=== PATIENT | male | born 1990 | race Caucasian/White ===

== ENCOUNTER 2018-05-16 07:23 | Inpatient (IN) | END 2018-05-27 12:10 | disposition left against medical advice (07) | DRG 306 ==

== ENCOUNTER 2018-05-29 17:39 | Inpatient (IN) | END 2018-06-01 17:30 | disposition left against medical advice (07) | DRG 288 ==

== ENCOUNTER 2018-12-31 15:19 | Inpatient (IN) | payer OTHER ==
[~2018-12-31] VITALS: Ht 172.7 cm; Wt 81.8 kg
[~2018-12-31 15:19] MED LIST: ASPI-817 PO
--- NOTE | 2018-12-31 15:40 | ERD ---
ER Documentation Chief Complaint Chief Complaint coughing blood x 1 1/2 week; CP, meth use, pacemaker HPI The patient is a 28-year-old male, presenting to the ER because he had intermittent spike of blood with coughing and chest discomfort for about a week and a half, denies fever, chills, neck pain, complains of chest pain with co ughing, denies dyspnea, abdominal pain, vomiting, dysuria. He smokes and drinks and does illicit drug, homeless Past medical history: History of endocarditis and pulmonary embolism on May 29, 2018 when he was admitted but signed AMA, anemia, medical noncompliance Past surgical history: Pacemaker about a year ago, tricuspid valve repair ROS All systems reviewed and are negative except as per history of present illness. Medications Home Meds Reported Medications Aspirin* (Aspirin* EC) 81 Mg Tablet.dr, 81 MG PO DAILY, TAB TAKE 2 OR 3 TIMES A DAY 04/27/18 Allergies Allergies: Coded Allergies: No Known Allergy (Unverified , 05/18/18) PMhx/Soc History of Surgery: Yes (VALVE PLACEMENT AND REPAIR) Anesthesia Reaction: No Hx Neurological Disorder: No Hx Respiratory Disorders: No Hx Cardiac Disorders: Yes Hx Psychiatric Problems: No Hx Miscellaneous Medical Probl: No (DRUG ABUSE) Hx Alcohol Use: Yes Hx Substance Use: Yes Hx Tobacco Use: Yes Physical Exam Vitals Vital Signs Date Temp Pulse Resp B/P (MAP) Pulse Ox O2 O2 Flow FiO2 Time Delivery Rate 12/31/18 113 33 122/84 100 Room Air 17:45 (97) 12/31/18 117 30 117/76 100 Room Air 16:52 (90) 12/31/18 98.9 122 30 109/68 100 15:23 (82) Physical Exam Const: No acute distress. Head: Atraumatic. Eyes: Normal Conjunctiva. ENT: Normal External Ears, Nose and Mouth. Neck: Full range of motion. No meningismus. Resp: Tachypneic, left-sided crackle Cardio: Regular tachycardic Abd: Soft, non distended, normal bowel sounds, non tender. Skin: No petechiae or rashes. Back: No midline or flank tenderness. Ext: No cyanosis, or edema. Neur: Awake and alert. No focal deficit Psych: Normal Mood and Affect. Result Diagram: 12/31/18 1625 12/31/18 1625 Results 24 hrs Laboratory Tests Test 12/31/18 16:25 12/31/18 16:26 12/31/18 16:55 White Blood Count 22.3 10^3/ul Red Blood Count 4.08 10^6/ul Hemoglobin 11.0 g/dl Hematocrit 33.0 % Mean Corpuscular Volume 80.9 fl Mean Corpuscular Hemoglobin 27.0 pg Mean Corpuscular 33.3 g/dl Hemoglobin Concent Red Cell Distribution Width 15.0 % Platelet Count 188 10^3/UL Mean Platelet Volume 9.1 fl Immature Granulocytes % 0.700 % Neutrophils % 88.5 % Lymphocytes % 6.7 % Monocytes % 3.7 % Eosinophils % 0.0 % Basophils % 0.4 % Nucleated Red Blood Cells % 0.0 /100WBC Immature Granulocytes # 0.150 10^3/ul Neutrophils # 19.7 10^3/ul Lymphocytes # 1.5 10^3/ul Monocytes # 0.8 10^3/ul Eosinophils # 0.0 10^3/ul Basophils # 0.1 10^3/ul Nucleated Red Blood Cells # 0.0 10^3/ul Prothrombin Time 16.4 Sec Prothrombin Time Ratio 1.3 INR International 1.31 Normalized Ratio Activated Partial Thromboplast 43.4 Sec Time Sodium Level 132 mmol/L Potassium Level 3.9 mmol/L Chloride Level 100 mmol/L Carbon Dioxide Level 21 mmol/L Anion Gap 11 Blood Urea Nitrogen 12 mg/dl Creatinine 1.11 mg/dl Est Glomerular Filtrat > 60 mL/min Rate mL/min Glucose Level 106 mg/dl Calcium Level 8.7 mg/dl Total Bilirubin 0.8 mg/dl Direct Bilirubin 0.00 mg/dl Indirect Bilirubin 0.8 mg/dl Aspartate Amino 30 IU/L Transf (AST/SGOT) Alanine 7 IU/L Aminotransferase (ALT/SGPT) Alkaline Phosphatase 225 IU/L Troponin I 0.024 ng/ml Total Protein 10.0 g/dl Albumin 3.7 g/dl Globulin 6.30 g/dl Albumin/Globulin Ratio 0.58 Ethyl Alcohol Level < 10.0 mg/dl POC Venous Lactate 1.8 mmol/L Urine Color LEA Urine Clarity CLEAR Urine pH 6.0 Urine Specific [place] 1.011 Urine Ketones NEGATIVE mg/dL Urine Nitrite NEGATIVE mg/dL Urine Bilirubin NEGATIVE mg/dL Urine Urobilinogen 2+ mg/dL Urine Leukocyte Esterase NEGATIVE Fabien/ul Urine Microscopic RBC 27 /HPF Urine Microscopic WBC 9 /HPF Urine Bacteria FEW /HPF Urine Hyaline Casts FEW /HPF Urine Hemoglobin 3+ mg/dL Urine Glucose NEGATIVE mg/dL Urine Total Protein 2+ mg/dl Urine Opiates Screen Negative Urine Barbiturates Negative Urine Amphetamines Screen POSITIVE Urine Benzodiazepines Screen Negative Urine Cocaine Screen Negative Urine Cannabinoids Positive Current Medications Medications Dose Sig/Beverly Start Time Status Last (Trade) Ordered Route PRN Stop Time Admin Dose Reason Admin Sodium 2,450 ml BOLUS OVER 2 12/31/18 DC Chloride HOURS STAT 15:44 (NS) IV* 12/31/18 15:46 Sodium 2,450 ml @ BOLUS X1 12/31/18 DC 12/31/18 Chloride 1,225 mls/hr ONCE IV 17:00 17:41 12/31/18 18:59 Vancomycin 250 ml @ ONCE ONCE 12/31/18 DC 12/31/18 HCl 125 mls/hr IVPB 17:00 17:41 12/31/18 18:59 Piperacillin 100 ml @ ONCE ONCE 12/31/18 DC 12/31/18 Sod/ 200 mls/hr IVPB 17:00 16:54 Tazobactam 12/31/18 17:29 Sod Procedures/[place] [id number] Radiology Main Line: [phone] DIAGNOSTIC IMAGING REPORT Patient: COLLETTE BOWMAN : 1990 Age: 28 Sex: M MR #: [id number] DOS: 12/31/18 1544 Ordering MD: ROBBIN SILVERMAN MD Location: E/R Room/Bed: PROCEDURE: XR Chest. CLINICAL INDICATION: chest pain TECHNIQUE: Single frontal view of the chest was obtained COMPARISON: CHEST 05/29/2018 FINDINGS: The heart and mediastinum are within normal limits. There is a left-sided pacemaker in place. The patient is status post sternotomy and heart valve replacement. There is a left lower lobe infiltrate. There is mild right mid lung atelectasis. There is no pleural effusion or pneumothorax. RPTAT: AA IMPRESSION: Focal left lower lobe infiltrate. Mild right mid lung atelectasis. .Jewel Celeste MD, Date Time Electronically viewed and signed by .Jewel Celeste MD, MD on 12/31/2018 16:26 .S/ CC: ROBBIN SILVERMAN MD [id number] EKG: Read by emergency physician Rate/Rhythm: Sinus tachycardia 124 beats/min QRS, ST, T-waves: No ST elevation, no T inversion, RWA Impression: Abnormal EKG MEDICAL MAKING DECISION: The patient is a 28-year-old male, presenting with acute pneumonia, amphetamine abuse, anemia, abnormal LFT. He was treated with normosaline 30 mm/kg for clinical dehydration, vancomycin IV and Zosyn IV for pneumonia with good response. The differential diagnoses considered include but are not limited to septic emboli, empyema, PE, UTI, pyelonephritis Departure Diagnosis: Primary Impression: PNA (pneumonia) Additional Impressions: Anemia Amphetamine abuse Abnormal LFTs Condition: Stable Comments I discussed the findings with the patient. I discussed the patient with the hospitalist Dr Welch at 6:15 pm . who was made aware of the lab, the treatment, the patient condition. The patient is admitted to [facility] Disclaimer: Inadvertent spelling and grammatical errors are likely due to EHR/dictation software use and do not reflect on the overall quality of patient care. Also, please note that the electronic time recorded on this note does not necessarily reflect the actual time of the patient encounter. ROBBIN SILVERMAN MD Dec 31, 2018 15:40
[2018-12-31] MEDS ORDERED: SODIUM CHLORIDE 0.9% 1L BAG IV* STA (15:44)
[2018-12-31] MEDS ORDERED: SOD CHLORIDE 0.9% 2,450 ML IV ONE (17:00)
[2018-12-31] MEDS ORDERED: PIPER-TAZO 3.375 GM IV (PMX) 100 ML IVPB ONE (17:00)
[2018-12-31] MEDS ORDERED: VANCOMYCIN 1 GM (PMX) 250 ML IVPB ONE (17:00)
[2018-12-31] MEDS ORDERED: NITROGLYCERIN (SL) 0.4 MG TAB SL PRN (18:30)
[2018-12-31] MEDS ORDERED: LORAZEPAM 2 MG INJ IV PRN (18:30)
[2018-12-31] MEDS ORDERED: NACL 0.9% 3 ML SYG IV SCH (18:30)
[2018-12-31] MEDS ORDERED: VANCOMYCIN IV PER PHARMACY XX SCH (18:30)
[2018-12-31] MEDS ORDERED: hydrALAzine 20 MG INJ IV PRN (18:30)
--- NOTE | 2018-12-31 19:56 | HP ---
DATE OF ADMISSION: 12/31/2018 IDENTIFICATION: This is a 28-year-old male. CHIEF COMPLAINT: Productive cough, possible hemoptysis x1 week. 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 He stat es he has been coughing up productive sputum and having some hemoptysis for the last 7 to 10 days. D enied any lower GI bleeding. No significant fevers or chills. No diarrhea or constipation. No sign ificant nausea or vomiting. When the patient came in today, he had some abnormal labs including whit e blood cell count of 22.3. He is also found to have tachycardia, heart rate in the 115 to 120 range and his chest x-ray did show signs of left lower lobe infiltrate and right mid lung atelectasis and patient was given antibiotics in the ER, broad spectrum. The patient was last here at our hospital i n 05/2018. At that time, he was treated for endocarditis, although he did leave against medical advi ce during the hospital stay. PAST MEDICAL HISTORY: As stated above. ALLERGIES: NO KNOWN DRUG ALLERGIES. HOME MEDICATIONS: Aspirin 81 mg daily. PAST SURGICAL HISTORY: Again, he has had looked like that either tricuspid valve replacement or repa ir in the past. SOCIAL HISTORY: Positive alcohol use. Positive for substance abuse including methamphetamine and we eds and the patient is a smoker. FAMILY HISTORY: Unknown. PHYSICAL EXAMINATION: VITAL SIGNS: Today, T-max 98.9, pulse 122, respirations 30, blood pressure 109/68, satting 100%. GENERAL: The patient is lying in bed. Significant other is at the bedside. The patient is in mild distress. HEENT: Pupils are equal, round, react to light. Extraocular muscles are intact. NECK: Supple. No thyromegaly. LUNGS: Distant breath sounds bilaterally. CARDIOVASCULAR: S1, S2 heard. No rubs or gallops. ABDOMEN: Soft, nontender, nondistended. Normal bowel sounds. No rebound or guarding. MUSCULOSKELETAL: No lower extremity edema bilaterally. NEUROLOGIC: No focal deficits. LABORATORIES: Again, we mentioned, his WBC 22.3, hemoglobin 11, hematocrit 33, platelets 188. Compr ehensive metabolic panel is essentially normal. Troponin is negative x1. Lactic acid is normal. Co ags show an INR of 1.42. UA shows negative nitrites, few bacteria, negative leukocyte esterase. DIAGNOSTIC DATA: We mentioned the chest x-ray findings. ASSESSMENT AND PLAN: A 28-year-old male coming in with productive cough, possible hemoptysis for the last 7 to 10 days with signs of leukocytosis and pneumonia with a prior history of IV drug abuse, en docarditis, pacemaker and pulmonary embolism and tricuspid valve repair. 1. Cough and possible hemoptysis. Again symptoms are likely secondary to the pneumonia. Admit the patient and put on broad spectrum antibiotics. Check TSH, A1c, lipid panel. Consider to put him on low-dose IV fluids, Tylenol p.r.n. pain and fevers. Follow up final culture results. 2. 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 U-tox is positive this time. He w as counseled on cessation. Monitor for signs of withdrawal. 3. History of endocarditis. Continue to monitor for now. Follow up final blood culture results. T he patient does not have any fevers right now. His blood pressure appears to be stable. 4. History of prior pacemaker. Continue to monitor patient on telemetry for now. 5. History of peptic ulcer disease. We will add H2 sharona. Otherwise, no present issues. 6. History of tricuspid valve repair. Again, consider repeating echocardiogram. Continue to monito r patient on telemetry for now. Dictated By: ROWAN REARDON/[facility] Conf#: [id number] DID#: [id number] CC: ROBBIN SILVERMAN MD;*End*
[2018-12-31 20:00] VITALS: PULSE 112
[2018-12-31 20:12] VITALS: PULSE 112
[2018-12-31 20:18] VITALS: Ht 172.7 cm; Wt 81.8 kg
[2018-12-31 20:29] VITALS: BP 117/79; PULSE 81; RESP 20
[2018-12-31] MEDS ORDERED: SOD CHLORIDE 0.45% 1,000 ML IV SCH (20:30)
[2018-12-31] MEDS: HYDROCODONE/APAP (5/325) TAB PO PRN (20:44)
[2018-12-31] MEDS ORDERED: VANCOMYCIN 500 MG (PMX) 100 ML IVPB SCH (21:30)
[2018-12-31] MEDS ORDERED: SOD CHLORIDE 0.9% 250 ML IV ONE (22:00)
[2018-12-31] MEDS: SOD CHLORIDE 0.9% 1,000 ML IV SCH (23:05)
[2018-12-31] MEDS: PIPER-TAZO 3.375 GM IV (PMX) 100 ML IVPB SCH (23:55)
[2019-01-01] VITALS (10 sets, daily range): BP systolic 111–125; BP diastolic 57–83; PULSE 59–124; RESP 18–19
[2019-01-01] MEDS: VANCOMYCIN 1 GM 250 ML IVPB SCH ×3 (03:05→18:42)
[2019-01-01] MEDS: ACETAMINOPHEN 325 MG TAB PO PRN ×3 (03:52→16:52)
[2019-01-01] MEDS: PIPER-TAZO 3.375 GM IV (PMX) 100 ML IVPB SCH ×4 (05:30→23:24)
[2019-01-01] MEDS: HYDROCODONE/APAP (5/325) TAB PO PRN (07:55)
[2019-01-01] MEDS: FAMOTIDINE 20 MG INJ IV SCH (08:13)
[2019-01-01] MEDS: SOD CHLORIDE 0.9% 1,000 ML IV SCH ×2 (09:00→10:17)
--- NOTE | 2019-01-01 11:27 | PN ---
Date/Time of Note Date/Time of Note DATE: 01/01/19 TIME: 11:26 Assessment/Plan VTE Prophylaxis Risk score (from [facility] [place]0 risk: 1 SCD applied (from [facility] [place]): No SCD contraindicated: other Pharmacological prophylaxis: heparin Lines/Catheters IV Catheter Type (from [facility]): Peripheral IV Urinary Cath still in place: No Assessment/Plan Hospital Course S: Patient having less fevers now. Still having some cough symptoms. O: VS - see below PHYSICAL EXAMINATION: GENERAL: lying in bed, no acute distress HEENT: Pupils are equal, round, react to light. Extraocular muscles are intact. NECK: Supple. No thyromegaly. LUNGS: Distant breath sounds bilaterally. CARDIOVASCULAR: S1, S2 heard. No rubs or gallops. ABDOMEN: Soft, nontender, nondistended. Normal bowel sounds. No rebound or guarding. MUSCULOSKELETAL: No lower extremity edema bilaterally. NEUROLOGIC: No focal deficits. ASSESSMENT AND PLAN: 28-year-old male coming in with productive cough, possible hemoptysis for the last 7 to 10 days with signs of leukocytosis and pneumonia with a prior history of IV drug abuse, endocarditis, pacemaker and pulmonary embolism and tricuspid valve repair. 1. Cough and possible hemoptysis - secondary to the pneumonia. -Continue broad spectrum antibiotics, low-dose IV fluids, Tylenol p.r.n. pain and fevers. - Follow up final culture results. 2. 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 U-tox is positive this time. - counseled on cessation. Monitor for signs of withdrawal. 3. History of endocarditis- The patient does not have any fevers right now. His blood pressure appears to be stable. - Continue to monitor for now. - Follow up final blood culture results. 4. History of prior pacemaker. Continue to monitor patient on telemetry for now. 5. History of peptic ulcer disease - H2 sharona. Otherwise, no present issues. 6. History of tricuspid valve repair. - Again, consider repeating echocardiogram. - Continue to monitor patient on telemetry for now. Result Diagram: 01/01/19 0603 01/01/19 0603 Results 24hrs Laboratory Tests Test 12/31/18 16:25 12/31/18 16:26 12/31/18 16:55 12/31/18 18:46 White Blood Count 22.3 #H Red Blood Count 4.08 L Hemoglobin 11.0 L Hematocrit 33.0 L Mean Corpuscular 80.9 L Volume Mean Corpuscular 27.0 L Hemoglobin Mean Corpuscular 33.3 Hemoglobin Concent Red Cell 15.0 H Distribution Width Platelet Count 188 # Mean Platelet Volume 9.1 Immature 0.700 H Granulocytes % Neutrophils % 88.5 H Lymphocytes % 6.7 L Monocytes % 3.7 Eosinophils % 0.0 Basophils % 0.4 Nucleated Red Blood 0.0 Cells % Immature 0.150 H Granulocytes # Neutrophils # 19.7 H Lymphocytes # 1.5 Monocytes # 0.8 Eosinophils # 0.0 Basophils # 0.1 Nucleated Red Blood 0.0 Cells # Prothrombin Time 16.4 H 17.5 H Prothrombin Time 1.3 1.4 Ratio INR International 1.31 1.42 Normalized Ratio Activated 43.4 H 43.9 H Partial Thromboplast Time Sodium Level 132 L Potassium Level 3.9 Chloride Level 100 Carbon Dioxide Level 21 Anion Gap 11 Blood Urea Nitrogen 12 Creatinine 1.11 Est Glomerular > 60 Filtrat Rate mL/min Glucose Level 106 Calcium Level 8.7 Total Bilirubin 0.8 Direct Bilirubin 0.00 Indirect Bilirubin 0.8 Aspartate Amino 30 Transf (AST/SGOT) Alanine 7 L Aminotransferase (AL T/SGPT) Alkaline Phosphatase 225 H Troponin I 0.024 Total Protein 10.0 H Albumin 3.7 Globulin 6.30 H Albumin/Globulin 0.58 Ratio Ethyl Alcohol Level < 10.0 H POC Venous Lactate 1.8 Urine Color LEA Urine Clarity CLEAR Urine pH 6.0 Urine Specific 1.011 [place] Urine Ketones NEGATIVE Urine Nitrite NEGATIVE Urine Bilirubin NEGATIVE Urine Urobilinogen 2+ H Urine Leukocyte NEGATIVE Esterase Urine Microscopic 27 H RBC Urine Microscopic 9 H WBC Urine Bacteria FEW A Urine Hyaline Casts FEW A Urine Hemoglobin 3+ H Urine Glucose NEGATIVE Urine Total Protein 2+ H Urine Opiates Screen Negative Urine Barbiturates Negative Urine Amphetamines POSITIVE Screen Urine Negative Benzodiazepines Screen Urine Cocaine Screen Negative Urine Cannabinoids Positive Lactic Acid Level 2.3 *H Free Thyroxine 1.17 Test 12/31/18 20:41 01/01/19 00:23 01/01/19 06:03 Lactic Acid Level 3.6 *H 2.3 *H 1.0 White Blood Count 16.6 #H Red Blood Count 3.86 L Hemoglobin 10.3 L Hematocrit 31.7 L Mean Corpuscular 82.1 Volume Mean Corpuscular 26.7 L Hemoglobin Mean Corpuscular 32.5 Hemoglobin Concent Red Cell 15.0 H Distribution Width Platelet Count 182 Mean Platelet Volume 9.8 Immature 0.600 H Granulocytes % Neutrophils % 84.2 H Lymphocytes % 8.4 L Monocytes % 4.2 Eosinophils % 2.2 Basophils % 0.4 Nucleated Red Blood 0.0 Cells % Immature 0.100 H Granulocytes # Neutrophils # 14.0 H Lymphocytes # 1.4 Monocytes # 0.7 Eosinophils # 0.4 Basophils # 0.1 Nucleated Red Blood 0.0 Cells # Sodium Level 135 Potassium Level 3.8 Chloride Level 104 Carbon Dioxide Level 20 L Anion Gap 11 Blood Urea Nitrogen 12 Creatinine 0.99 Est Glomerular > 60 Filtrat Rate mL/min Glucose Level 114 Hemoglobin A1c 5.9 Calcium Level 8.2 L Phosphorus Level 2.9 Magnesium Level 1.7 Triglycerides Level 82 Cholesterol Level 99 L LDL Cholesterol, 67 Calculated HDL Cholesterol 16 L Cholesterol/HDL 6.1 Ratio Thyroid Stimulating 1.070 Hormone (TSH) Exam/Review of Systems Exam Vitals Vital Signs Date Temp Pulse Resp B/P (MAP) Pulse Ox O2 O2 Flow FiO2 Time Delivery Rate 01/01/19 2.0 11:22 01/01/19 98.0 59 18 111/75 97 Room Air 11:12 (87) Intake and Output 12/31/18 12/31/18 01/01/19 1515:00 23:00 07:00 IntakeIntake Total 1000 ml 1750 ml OutputOutput Total 700 ml BalanceBalance 1000 ml 1050 ml Results Results 24hrs Laboratory Tests Test 12/31/18 16:25 12/31/18 16:26 12/31/18 16:55 12/31/18 18:46 White Blood Count 22.3 #H Red Blood Count 4.08 L Hemoglobin 11.0 L Hematocrit 33.0 L Mean Corpuscular 80.9 L Volume Mean Corpuscular 27.0 L Hemoglobin Mean Corpuscular 33.3 Hemoglobin Concent Red Cell 15.0 H Distribution Width Platelet Count 188 # Mean Platelet Volume 9.1 Immature 0.700 H Granulocytes % Neutrophils % 88.5 H Lymphocytes % 6.7 L Monocytes % 3.7 Eosinophils % 0.0 Basophils % 0.4 Nucleated Red Blood 0.0 Cells % Immature 0.150 H Granulocytes # Neutrophils # 19.7 H Lymphocytes # 1.5 Monocytes # 0.8 Eosinophils # 0.0 Basophils # 0.1 Nucleated Red Blood 0.0 Cells # Prothrombin Time 16.4 H 17.5 H Prothrombin Time 1.3 1.4 Ratio INR International 1.31 1.42 Normalized Ratio Activated 43.4 H 43.9 H Partial Thromboplast Time Sodium Level 132 L Potassium Level 3.9 Chloride Level 100 Carbon Dioxide Level 21 Anion Gap 11 Blood Urea Nitrogen 12 Creatinine 1.11 Est Glomerular > 60 Filtrat Rate mL/min Glucose Level 106 Calcium Level 8.7 Total Bilirubin 0.8 Direct Bilirubin 0.00 Indirect Bilirubin 0.8 Aspartate Amino 30 Transf (AST/SGOT) Alanine 7 L Aminotransferase (AL T/SGPT) Alkaline Phosphatase 225 H Troponin I 0.024 Total Protein 10.0 H Albumin 3.7 Globulin 6.30 H Albumin/Globulin 0.58 Ratio Ethyl Alcohol Level < 10.0 H POC Venous Lactate 1.8 Urine Color LEA Urine Clarity CLEAR Urine pH 6.0 Urine Specific 1.011 [place] Urine Ketones NEGATIVE Urine Nitrite NEGATIVE Urine Bilirubin NEGATIVE Urine Urobilinogen 2+ H Urine Leukocyte NEGATIVE Esterase Urine Microscopic 27 H RBC Urine Microscopic 9 H WBC Urine Bacteria FEW A Urine Hyaline Casts FEW A Urine Hemoglobin 3+ H Urine Glucose NEGATIVE Urine Total Protein 2+ H Urine Opiates Screen Negative Urine Barbiturates Negative Urine Amphetamines POSITIVE Screen Urine Negative Benzodiazepines Screen Urine Cocaine Screen Negative Urine Cannabinoids Positive Lactic Acid Level 2.3 *H Free Thyroxine 1.17 Test 12/31/18 20:41 01/01/19 00:23 01/01/19 06:03 Lactic Acid Level 3.6 *H 2.3 *H 1.0 White Blood Count 16.6 #H Red Blood Count 3.86 L Hemoglobin 10.3 L Hematocrit 31.7 L Mean Corpuscular 82.1 Volume Mean Corpuscular 26.7 L Hemoglobin Mean Corpuscular 32.5 Hemoglobin Concent Red Cell 15.0 H Distribution Width Platelet Count 182 Mean Platelet Volume 9.8 Immature 0.600 H Granulocytes % Neutrophils % 84.2 H Lymphocytes % 8.4 L Monocytes % 4.2 Eosinophils % 2.2 Basophils % 0.4 Nucleated Red Blood 0.0 Cells % Immature 0.100 H Granulocytes # Neutrophils # 14.0 H Lymphocytes # 1.4 Monocytes # 0.7 Eosinophils # 0.4 Basophils # 0.1 Nucleated Red Blood 0.0 Cells # Sodium Level 135 Potassium Level 3.8 Chloride Level 104 Carbon Dioxide Level 20 L Anion Gap 11 Blood Urea Nitrogen 12 Creatinine 0.99 Est Glomerular > 60 Filtrat Rate mL/min Glucose Level 114 Hemoglobin A1c 5.9 Calcium Level 8.2 L Phosphorus Level 2.9 Magnesium Level 1.7 Triglycerides Level 82 Cholesterol Level 99 L LDL Cholesterol, 67 Calculated HDL Cholesterol 16 L Cholesterol/HDL 6.1 Ratio Thyroid Stimulating 1.070 Hormone (TSH) Medications Medication Current Medications IV Flush (NS 3 ml) 3 ml PER PROTOCOL IV ; Start 12/31/18 at 18:30 Ondansetron HCl (Zofran Inj) 4 mg Q6H PRN IV NAUSEA/VOMITING; Start 12/31/18 at 18:30 Acetaminophen (Tylenol Tab) 650 mg Q6H PRN PO .PAIN 1-3 OR TEMP Last administered on 01/01/19at 05:30; Admin Dose 650 MG; Start 12/31/18 at 18:30 Acetaminophen/ Hydrocodone Bitart ([place] (5/325)) 1 tab Q6H PRN PO .MOD PAIN 4- 6 Last administered on 01/01/19at 07:55; Admin Dose 1 TAB; Start 12/31/18 at 18:30 Morphine Sulfate (morphine) 2 mg Q4H PRN IV .SEVERE PAIN 7-10; Start 12/31/18 at 18:30 Docusate Sodium (Colace) 100 mg Q12H PRN PO .CONSTIPATION; Start 12/31/18 at 18:30 Magnesium Hydroxide (Milk Of Mag) 30 ml DAILY PRN PO .CONSTIPATION; Start 12/31/18 at 18:30 Lorazepam (Ativan) 0.5 mg Q6H PRN IV ANXIETY; Start 12/31/18 at 18:30 Albuterol/ Ipratropium (Duoneb) 3 ml Q4H RESP THERAPY PRN HHN SHORTNESS OF BREATH; Start 12/31/18 at 18:30 Piperacillin Sod/ Tazobactam Sod 100 ml @ 200 mls/hr Q6 IVPB Last administered on 01/01/19at 05:30; Admin Dose 200 MLS/HR; Start 01/01/19 at 00:00 Vancomycin HCl (Vanco Iv Per Pharmacy) VANCOMYCIN PER PHARMACY NOTE XX ; Start 12/31/18 at 18:30 Hydralazine HCl (Apresoline) 10 mg Q6H PRN IV ELEVATED BLOOD PRESSURE; Start 12/31/18 at 18:30 Nitroglycerin (Nitroglycerin (Sl Tab) 0.4 Mg) 1 tab Q5M PRN SL ANGINA; Start 12/31/18 at 18:30 Famotidine (Pepcid Iv) 20 mg DAILY IV Last administered on 01/01/19at 08:13; Admin Dose 20 MG; Start 01/01/19 at 09:00 Vancomycin HCl 250 ml @ 125 mls/hr Q8H IVPB Last administered on 01/01/19at 10:19; Admin Dose 125 MLS/HR; Start 01/01/19 at 03:00 Sodium Chloride 1,000 ml @ 100 mls/hr Q10H IV Last administered on 01/01/19at 10:17; Admin Dose 100 MLS/HR; Start 12/31/18 at 23:00 ROWAN OVALLE Jan 01, 2019 11:27
[2019-01-01] MEDS: SOD CHLORIDE 0.45% 1,000 ML IV SCH (13:21)
[2019-01-01] MEDS: GUAIFENESIN 20 MG/ML 5ML CUP PO PRN (16:14)
[2019-01-01] MEDS: IBUPROFEN 600 MG TAB PO PRN (19:31)
[2019-01-01] MEDS: HEPARIN 5,000 UNIT/1 ML VIAL SC SCH (21:11)
--- NOTE | 2019-01-01 23:17 | CONS ---
DATE OF ADMISSION: 12/31/2018 DATE OF CONSULTATION: 01/01/2019 REASON FOR CONSULTATION: Antibiotic management. HISTORY OF PRESENT ILLNESS: Chris Neal is a 28-year-old male with numerous problems wh o comes in with coughing up blood for 1-1/2 weeks. The patient has numerous problems. He comes in w ith chest pain. He has a history of methamphetamine use. He has a pacemaker and he also has a histo ry of IV drug abuse. He presents to the Emergency Room with intermittent spiking fevers with coughin g up blood and chest discomfort for about a week and a half. He denies fever, chills or neck pain. He smokes, drinks and does illicit drugs, and is homeless. PAST MEDICAL HISTORY: Positive for endocarditis and pulmonary emboli in 05/2018. He signed out [facility] medical advice at one point in May and is medically noncompliant. He had a pacemaker done about a year ago and tricuspid valve repair. PAST MEDICAL HISTORY: Operations as outlined. FAMILY HISTORY: Noncontributory. SOCIAL HISTORY: He is homeless. He smokes, drinks and abuses drugs. ALLERGIES: NONE TO PENICILLIN, SULFA OR FOODS. MEDICATIONS: Per chart. REVIEW OF SYSTEMS: As per HPI. PHYSICAL EXAMINATION: GENERAL: The patient is a well-developed, well-nourished male with multiple tattoos, who is very unc omfortable lying in bed with fever. VITAL SIGNS: His T-max is 102.6. SKIN: Without generalized rash. As noted, he has multiple tattoos. HEENT: Within normal limits. NECK: Supple. LYMPH NODES: None palpable. CHEST: Decreased breath sounds at the bases. HEART: Tachycardic without obvious murmur or gallop. THORAX: He has a left-sided pacemaker in place status post sternotomy. ABDOMEN: Soft, nontender, without organosplenomegaly or masses. EXTREMITIES: Without cyanosis, clubbing or edema. RECTAL AND GENITAL: Deferred. NEUROLOGIC: No focal neurological abnormality. DIAGNOSTIC DATA: Chest x-ray shows focal left lower lobe infiltrate and mild right middle lobe lung atelectasis. IMPRESSION AND PLAN: The patient was seen by Dr. Ovlale. The patient is with fevers less so than prev iously, cough and possible hemoptysis secondary to pneumonia. The patient has history of IV drug abu se, U-tox positive, history of endocarditis. He has fevers at the present time. His white count is 16.6 for today. I would not be surprised if he has shooting up and will have positive blood cultures . He is on vancomycin and Zosyn. I am going to order some more blood cultures. I will dictate my f indings to the hospitalist. Dictated By: BARB ATWOOD MD, JD/[facility] Conf#: [id number] DID#: [id number] CC: ROWAN OVALLE;*EndCC*
[2019-01-02] VITALS (11 sets, daily range): BP systolic 95–120; BP diastolic 67–76; PULSE 78–121; RESP 18–20
[2019-01-02] MEDS: SOD CHLORIDE 0.45% 1,000 ML IV SCH ×2 (00:21→14:17)
[2019-01-02] MEDS: VANCOMYCIN 1 GM 250 ML IVPB SCH ×2 (03:11→10:45)
[2019-01-02] MEDS: PIPER-TAZO 3.375 GM IV (PMX) 100 ML IVPB SCH ×2 (05:26→12:49)
[2019-01-02] MEDS: FAMOTIDINE 20 MG INJ IV SCH (08:19)
[2019-01-02] MEDS: HEPARIN 5,000 UNIT/1 ML VIAL SC SCH ×2 (08:26→20:51)
--- NOTE | 2019-01-02 12:25 | PN ---
Date/Time of Note Date/Time of Note DATE: 01/02/19 TIME: 12:20 Assessment/Plan VTE Prophylaxis Risk score (from Ns)>0 risk: 4 SCD applied (from Ns): No SCD contraindicated: other Pharmacological prophylaxis: heparin Lines/Catheters IV Catheter Type (from [facility]): Peripheral IV Urinary Cath still in place: No Assessment/Plan Hospital Course S: Patient seen by ID team yesterday. Had more respiratory distress yesterday requiring nonrebreather at that time, back on nasal cannula now, but appears more tachypneic today. O: VS - see below PHYSICAL EXAMINATION: GENERAL: lying in bed, no acute distress HEENT: Pupils are equal, round, react to light. Extraocular muscles are intact. NECK: Supple. No thyromegaly. LUNGS: Distant breath sounds bilaterally. CARDIOVASCULAR: S1, S2 heard. No rubs or gallops. ABDOMEN: Soft, nontender, nondistended. Normal bowel sounds. No rebound or guarding. MUSCULOSKELETAL: No lower extremity edema bilaterally. NEUROLOGIC: No focal deficits. ASSESSMENT AND PLAN: 28-year-old male coming in with productive cough, possible hemoptysis for the last 7 to 10 days with signs of leukocytosis and pneumonia with a prior history of IV drug abuse, endocarditis, pacemaker and pulmonary embolism and tricuspid valve repair. 1. Cough and possible hemoptysis - secondary to the pneumonia. -Continue broad spectrum antibiotics, low-dose IV fluids, Tylenol p.r.n. pain and fevers. - Follow up final culture results, and ID recommendations 2. 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 U-tox is po sitive this time. - counseled on cessation. Monitor for signs of withdrawal. -Ativan PRN 3. Prior history of endocarditis- The patient does not have any fevers right now. His blood pressure appears to be stable. - Continue to monitor for now. - Follow up final blood culture results, 4. History of prior pacemaker. Continue to monitor patient on telemetry for now. 5. History of peptic ulcer disease - H2 sharona. Otherwise, no present issues. 6. History of tricuspid valve repair. -Awaiting results of echocardiogram ordered yesterday -follow-up results of this - Continue to monitor patient on telemetry for now. Result Diagram: 01/02/19 0600 01/02/19 0600 Results 24hrs Laboratory Tests Test 01/01/19 13:07 01/01/19 16:21 01/02/19 06:00 Lactic Acid Level 1.1 Vancomycin Level Trough 16.8 White Blood Count 15.1 H Red Blood Count 3.67 L Hemoglobin 9.7 L Hematocrit 31.2 L Mean Corpuscular Volume 85.0 Mean Corpuscular Hemoglobin 26.4 L Mean Corpuscular Hemoglobin Concent 31.1 L Red Cell Distribution Width 15.1 H Platelet Count 150 Mean Platelet Volume 10.0 Immature Granulocytes % 0.700 H Neutrophils % 78.3 H Lymphocytes % 8.6 L Monocytes % 4.9 Eosinophils % 7.0 Basophils % 0.5 Nucleated Red Blood Cells % 0.0 Immature Granulocytes # 0.110 H Neutrophils # 11.8 H Lymphocytes # 1.3 Monocytes # 0.7 Eosinophils # 1.1 H Basophils # 0.1 Nucleated Red Blood Cells # 0.0 Sodium Level 137 Potassium Level 3.7 Chloride Level 107 Carbon Dioxide Level 21 Anion Gap 9 Blood Urea Nitrogen 17 Creatinine 1.04 Est Glomerular Filtrat Rate mL/min > 60 Glucose Level 114 Calcium Level 8.2 L Exam/Review of Systems Exam Vitals Vital Signs Date Temp Pulse Resp B/P (MAP) Pulse Ox O2 O2 Flow FiO2 Time Delivery Rate 01/02/19 121 12:10 01/02/19 98.6 20 113/67 95 11:32 (82) 01/02/19 Nasal 3.0 07:48 Cannula Intake and Output 01/01/19 01/01/19 01/02/19 1515:00 23:00 07:00 IntakeIntake Total 200 ml 1200 ml 1900 ml OutputOutput Total 400 ml 1280 ml 700 ml BalanceBalance -200 ml -80 ml 1200 ml Results Results 24hrs Laboratory Tests Test 01/01/19 13:07 01/01/19 16:21 01/02/19 06:00 Lactic Acid Level 1.1 Vancomycin Level Trough 16.8 White Blood Count 15.1 H Red Blood Count 3.67 L Hemoglobin 9.7 L Hematocrit 31.2 L Mean Corpuscular Volume 85.0 Mean Corpuscular Hemoglobin 26.4 L Mean Corpuscular Hemoglobin Concent 31.1 L Red Cell Distribution Width 15.1 H Platelet Count 150 Mean Platelet Volume 10.0 Immature Granulocytes % 0.700 H Neutrophils % 78.3 H Lymphocytes % 8.6 L Monocytes % 4.9 Eosinophils % 7.0 Basophils % 0.5 Nucleated Red Blood Cells % 0.0 Immature Granulocytes # 0.110 H Neutrophils # 11.8 H Lymphocytes # 1.3 Monocytes # 0.7 Eosinophils # 1.1 H Basophils # 0.1 Nucleated Red Blood Cells # 0.0 Sodium Level 137 Potassium Level 3.7 Chloride Level 107 Carbon Dioxide Level 21 Anion Gap 9 Blood Urea Nitrogen 17 Creatinine 1.04 Est Glomerular Filtrat Rate mL/min > 60 Glucose Level 114 Calcium Level 8.2 L Medications Medication Current Medications IV Flush (NS 3 ml) 3 ml PER PROTOCOL IV ; Start 12/31/18 at 18:30 Ondansetron HCl (Zofran Inj) 4 mg Q6H PRN IV NAUSEA/VOMITING; Start 12/31/18 at 18:30 Acetaminophen (Tylenol Tab) 650 mg Q6H PRN PO .PAIN 1-3 OR TEMP Last administered on 01/01/19at 16:52; Admin Dose 650 MG; Start 12/31/18 at 18:30 Acetaminophen/ Hydrocodone Bitart ([place] (5/325)) 1 tab Q6H PRN PO .MOD PAIN 4- 6 Last administered on 01/01/19at 07:55; Admin Dose 1 TAB; Start 12/31/18 at 18:30 Morphine Sulfate (morphine) 2 mg Q4H PRN IV .SEVERE PAIN 7-10; Start 12/31/18 at 18:30 Docusate Sodium (Colace) 100 mg Q12H PRN PO .CONSTIPATION; Start 12/31/18 at 18:30 Magnesium Hydroxide (Milk Of Mag) 30 ml DAILY PRN PO .CONSTIPATION; Start 12/31/18 at 18:30 Lorazepam (Ativan) 0.5 mg Q6H PRN IV ANXIETY; Start 12/31/18 at 18:30 Albuterol/ Ipratropium (Duoneb) 3 ml Q4H RESP THERAPY PRN HHN SHORTNESS OF BREATH; Start 12/31/18 at 18:30 Piperacillin Sod/ Tazobactam Sod 100 ml @ 200 mls/hr Q6 IVPB Last administered on 01/02/19at 05:26; Admin Dose 200 MLS/HR; Start 01/01/19 at 00:00 Vancomycin HCl (Vanco Iv Per Pharmacy) VANCOMYCIN PER PHARMACY NOTE XX ; Start 12/31/18 at 18:30 Hydralazine HCl (Apresoline) 10 mg Q6H PRN IV ELEVATED BLOOD PRESSURE; Start 12/31/18 at 18:30 Nitroglycerin (Nitroglycerin (Sl Tab) 0.4 Mg) 1 tab Q5M PRN SL ANGINA; Start 12/31/18 at 18:30 Famotidine (Pepcid Iv) 20 mg DAILY IV Last administered on 01/02/19at 08:19; Admin Dose 20 MG; Start 01/01/19 at 09:00 Vancomycin HCl 250 ml @ 125 mls/hr Q8H IVPB Last administered on 01/02/19at 10:45; Admin Dose 125 MLS/HR; Start 01/01/19 at 03:00 Guaifenesin (Robitussin Liquid Cup) 200 mg Q4H PRN PO COUGH Last administered on 01/01/19at 16:14; Admin Dose 200 MG; Start 01/01/19 at 11:30 Sodium Chloride 1,000 ml @ 75 mls/hr [id number] IV Last administered on 01/01/19at 13:21; Admin Dose 75 MLS/HR; Start 01/01/19 at 11:30 Heparin Sodium (Porcine) (Heparin (5000 Units/1ml)) 5,000 unit BID SC Last administered on 01/02/19at 08:26; Admin Dose 5,000 UNIT; Start 01/01/19 at 21:00 Ibuprofen (Motrin) 600 mg Q6H PRN PO MILD PAIN LEVEL 1-3 Last administered on 01/01/19at 19:31; Admin Dose 600 MG; Start 01/01/19 at 17:30 Phenol (Cepastat Lozenge) 1 lozenge Q1H PRN MT COUGH; Start 01/02/19 at 12:30 ROWAN OVALLE Jan 02, 2019 12:25
--- NOTE | 2019-01-02 16:55 | CONS ---
Assessment/Plan Assessment/Plan Hospital Course (Demo Recall) Patient is awake looks comfortable denies pain no fevers today latest fever was yesterday of 102.2. WBC 15.1 platelets 115 neutrophils 78.3 BUN 17 creatinine 1.04. HIV serology negative. Microbiology: Blood cultures negative. Chest x-ray on admission revealed focal left lower lobe infiltrate. Mild right midlung atelectasis. Antimicrobials: Vancomycin Zosyn. Physical examination: Well-developed middle-aged man who is awake in no distress. Head atraumatic normocephalic sclera nonicteric vehicle mucosa dry neck is supple chest rise symmetrical breath sounds with scattered rhonchi. Heart: S1-S2. Abdomen soft bowel sounds present extremities without cyanosis. Assessment: 1. Sepsis present on admission 2. Community-acquired pneumonia 3. Hemoptysis 4. History of endocarditis 5. IV drug abuse 6. Coronary artery disease with a history of tricuspid valve repair and permanent pacemaker placement Plan: DC vancomycin, start Zithromax, change Zosyn to cefepime, consider CT of the chest and pulmonary evaluation, await for 2D echo report results. Sputum culture and MRSA swab Consultation Date/Type/Reason Admit Date/Time Dec 31, 2018 at 18:14 Initial Consult Date Type of Consult id Date/Time of Note DATE: 01/02/19 TIME: 16:54 Exam/Review of Systems Exam Vitals Vital Signs Date Temp Pulse Resp B/P (MAP) Pulse Ox O2 O2 Flow FiO2 Time Delivery Rate 01/02/19 114 16:09 01/02/19 98.1 20 120/72 99 15:48 (88) 01/02/19 Nasal 3.0 07:48 Cannula Intake and Output 01/01/19 01/01/19 01/02/19 1515:00 23:00 07:00 IntakeIntake Total 200 ml 1200 ml 1900 ml OutputOutput Total 400 ml 1280 ml 700 ml BalanceBalance -200 ml -80 ml 1200 ml Results Result Diagram: 01/02/19 0600 01/02/19 0600 Results 24hrs Laboratory Tests Test 01/02/19 06:00 01/02/19 12:45 White Blood Count 15.1 H Red Blood Count 3.67 L Hemoglobin 9.7 L Hematocrit 31.2 L Mean Corpuscular Volume 85.0 Mean Corpuscular Hemoglobin 26.4 L Mean Corpuscular Hemoglobin Concent 31.1 L Red Cell Distribution Width 15.1 H Platelet Count 150 Mean Platelet Volume 10.0 Immature Granulocytes % 0.700 H Neutrophils % 78.3 H Lymphocytes % 8.6 L Monocytes % 4.9 Eosinophils % 7.0 Basophils % 0.5 Nucleated Red Blood Cells % 0.0 Immature Granulocytes # 0.110 H Neutrophils # 11.8 H Lymphocytes # 1.3 Monocytes # 0.7 Eosinophils # 1.1 H Basophils # 0.1 Nucleated Red Blood Cells # 0.0 Sodium Level 137 Potassium Level 3.7 Chloride Level 107 Carbon Dioxide Level 21 Anion Gap 9 Blood Urea Nitrogen 17 Creatinine 1.04 Est Glomerular Filtrat Rate mL/min > 60 Glucose Level 114 Calcium Level 8.2 L HIV (1&2) Antibody NEGATIVE Blood Gas Specimen Source Blood arterial Arterial Blood Date Drawn 01/02/2019 1:13:26 PM Arterial Blood pH (Temp corrected) 7.472 H Arterial Blood pCO2 (Temp correct) 26.5 L Arterial Blood pO2 (Temp corrected) 85.3 Arterial Blood HCO3 18.9 L Arterial Blood Base Excess -3.5 L Arterial Blood Oxygen Saturation 96.7 Yuri Test ACCEPTAB Arterial Blood Gas Puncture Site Left Radial Arterial Blood Carboxyhemoglobin 0 Arterial Blood Methemoglobin 0.2 Blood Gas A-a O2 Differential 119.1 H Oxyhemoglobin Percent 96.5 Blood Gas Temperature 37.0 Blood Gas Modality NASAL CANNULA FiO2 33.0 Blood Gas Notified Whom TM Blood Gas Notified Time 01/02/2019 1:21:00 PM Medications Medication Current Medications IV Flush (NS 3 ml) 3 ml PER PROTOCOL IV ; Start 12/31/18 at 18:30 Ondansetron HCl (Zofran Inj) 4 mg Q6H PRN IV NAUSEA/VOMITING; Start 12/31/18 at 18:30 Acetaminophen (Tylenol Tab) 650 mg Q6H PRN PO .PAIN 1-3 OR TEMP Last administered on 01/01/19at 16:52; Admin Dose 650 MG; Start 12/31/18 at 18:30 Acetaminophen/ Hydrocodone Bitart ([place] (5/325)) 1 tab Q6H PRN PO .MOD PAIN 4- 6 Last administered on 01/01/19at 07:55; Admin Dose 1 TAB; Start 12/31/18 at 18:30 Morphine Sulfate (morphine) 2 mg Q4H PRN IV .SEVERE PAIN 7-10; Start 12/31/18 at 18:30 Docusate Sodium (Colace) 100 mg Q12H PRN PO .CONSTIPATION; Start 12/31/18 at 18:30 Magnesium Hydroxide (Milk Of Mag) 30 ml DAILY PRN PO .CONSTIPATION; Start at 18:30 Lorazepam (Ativan) 0.5 mg Q6H PRN IV ANXIETY Last administered on 01/02/19 12:32; Admin Dose 0.5 MG; Start 12/31/18 at 18:30 Albuterol/ Ipratropium (Duoneb) 3 ml Q4H RESP THERAPY PRN HHN SHORTNESS OF BREATH; Start 12/31/18 at 18:30 Piperacillin Sod/ Tazobactam Sod 100 ml @ 200 mls/hr Q6 IVPB Last administered on 01/02/19 12:49; Admin Dose 200 MLS/HR; Start 01/01/19 at 00:00 Vancomycin HCl (Vanco Iv Per Pharmacy) VANCOMYCIN PER PHARMACY NOTE XX ; Start 12/31/18 at 18:30 Hydralazine HCl (Apresoline) 10 mg Q6H PRN IV ELEVATED BLOOD PRESSURE; Start 12/31/18 at 18:30 Nitroglycerin (Nitroglycerin (Sl Tab) 0.4 Mg) 1 tab Q5M PRN SL ANGINA; Start 12/31/18 at 18:30 Vancomycin HCl 250 ml @ 125 mls/hr Q8H IVPB Last administered on 01/02/19at 10:45; Admin Dose 125 MLS/HR; Start 01/01/19 at 03:00 Guaifenesin (Robitussin Liquid Cup) 200 mg Q4H PRN PO COUGH Last administered on 01/01/19 16:14; Admin Dose 200 MG; Start 01/01/19 at 11:30 Sodium Chloride 1,000 ml @ 75 mls/hr [id number] IV Last administered on 01/02/19 14:17; Admin Dose 75 MLS/HR; Start 01/01/19 at 11:30 Heparin Sodium (Porcine) (Heparin (5000 Units/1ml)) 5,000 unit BID SC Last administered on 01/02/19 08:26; Admin Dose 5,000 UNIT; Start 01/01/19 at 21:00 Ibuprofen (Motrin) 600 mg Q6H PRN PO MILD PAIN LEVEL 1-3 Last administered on 01/01/19at 19:31; Admin Dose 600 MG; Start 01/01/19 at 17:30 Phenol (Cepastat Lozenge) 1 lozenge Q1H PRN MT COUGH; Start 01/02/19 at 12:30 Miscellaneous Information (*Rx Drug Level Order Reminder*) VANCOMYCIN TROUGH 01/03 AT 1000 ONCE ONCE XX ; Start 01/03/19 at 10:00; Stop 01/03/19 at 10:01 Famotidine (Pepcid) 20 mg DAILY PO ; Start 01/03/19 at 09:00 HAYLEE ENGLE NP Jan 02, 2019 16:55
[2019-01-02] MEDS: AZITHROMYCIN 500MG/NS (PMX) 250 ML IVPB SCH (18:45)
[2019-01-02] MEDS: morphine 2 MG INJ IV PRN (20:35)
[2019-01-02] MEDS: GUAIFENESIN 20 MG/ML 5ML CUP PO PRN (20:36)
[2019-01-02] MEDS: CEFEPIME 1GM/50 ML (PMX) 50 ML IVPB SCH (20:37)
[2019-01-02] MEDS: ONDANSETRON 4 MG INJ IV PRN (20:41)
--- NOTE | 2019-01-02 21:01 | RADRPT ---
Echocardiogram Report Patient Name: COLLETTE BOWMANPatient ID: [id number] : 1990 (28y 2m)Study Date: 01/02/2019 7:59:44 AM Gender: MAccession #: [id number] Tech: Usha Dawkins PRASAD Location: [id number] Ref.Physician: ROWAN OVALLE Height(Cm): BSA: Weight(Kg): Quality: AdequateAccount #: Procedures: Echocardiographic Report: Transthoracic echocardiogram with complete 2D, M-Mode, and doppler examination. Indications: Endocarditis. Measurements: 2D/M Mode Doppler Measurement Value Normal Range Measurement Value Normal Range LVIDd 2D 4.1 [ 4.2 - 5.8 ] cm AV Peak Gurinder 1.1 [ 100.0 - 170.0 ] cm/sec LVIDs 2D 3.0 [ 2.5 - 4.0 ] cm AV Peak PG 5.0 [ 2.0 - 9.0 ] mmHg LVPWd 2D 1.3 [ 0.6 - 1.0 ] cm LVOT Peak Gurinder 0.8 [ 70.0 - 110.0 ] cm/sec IVSd 2D 1.1 [ 0.6 - 1.0 ] cm LVOT Peak PG 3.0 [ 2.0 - 6.0 ] mmHg AoR Diam 2D 3.4 [ 2.6 - 3.4 ] cm MV E Peak Gurinder 0.9 [ 60.0 - 130.0 ] cm/sec EDV 2D 72.5 [ 62.0 - 150.0 ] ml MV A Peak Gurinder 1.0 [ 100.0 - 120.0 ] cm/sec ESV 2D 34.7 [ 21.0 - 61.0 ] ml MV E/A 0.9 [ 0.8 - 1.5 ] ratio EF 2D 52.1 [ 52.0 - 72.0 ] percent MV Decel Time 144 [ 104 - 258 ] msec LA Dimen 2D 3.9 [ 3.0 - 4.0 ] cm Lat E` Gurinder 0.1 [ 10.0 - 15.0 ] cm/sec Lateral E/E` 11.0 [ 1.0 - 2.0 ] ratio MV E/A 0.9 [ 0.8 - 1.5 ] ratio TR Peak Gurinder 2.7 [ 100.0 - 280.0 ] cm/sec TR Peak PG 30.0 mmHg RVSP 45.0 [ 10.0 - 36.0 ] mmHg RA Pressure 15.0 mmHg Findings: Left Ventricle: Normal left ventricular systolic function. Normal left ventricular cavity size. Mild concentric left ventricular hypertrophy. Ejection fraction is visually estimated at 55-60 %. Tissue Doppler/Mitral Doppler indices are consistent with impaired relaxation (Stage I diastolic dysfunction). Right Ventricle: Mild enlargement of right ventricle. Mild right ventricular hypokinesis. Left Atrium: The left atrium is normal in size. Right Atrium: There is severe enlargement of right atrium. Mitral Valve: Mild mitral annular calcification. Trace mitral regurgitation. Aortic Valve: No significant aortic stenosis or insufficiency. Aortic cusps appear mildly calcified. Tricuspid Valve: s/p Tricuspid valve replacement. TV vmax 2.84cm. Max PG 32mmHg. Mean PG 19 mmHg. Estimated peak PA systolic pressure 45 mmHg. There is moderate tricuspid regurgitation. Pulmonic Valve: Normal pulmonic valve appearance. Pericardium: Normal pericardium with no significant pericardial effusion. Aorta: Normal aortic root. IVC: Dilated IVC without respiratory collapse consistent with elevated right atrial pressure. Conclusions: Normal left ventricular systolic function. Normal left ventricular cavity size. Mild concentric left ventricular hypertrophy. Ejection fraction is visually estimated at 55-60 %. Tissue Doppler/Mitral Doppler indices are consistent with impaired relaxation (Stage I diastolic dysfunction). Mild enlargement of right ventricle. Mild right ventricular hypokinesis. There is severe enlargement of right atrium. Mild mitral annular calcification. Trace mitral regurgitation. No significant aortic stenosis or insufficiency. Aortic cusps appear mildly calcified. s/p Tricuspid valve replacement. TV vmax 2.84cm. Max PG 32mmHg. Mean PG 19 mmHg. Estimated peak PA systolic pressure 45 mmHg. There is moderate tricuspid regurgitation. Electronically Signed By: Benjamin Mustafa 2019-01-02 21:01:02 PST
[2019-01-02] MEDS ORDERED: IOHEXOL 100 ML ONE (23:39)
[2019-01-02] MEDS ORDERED: SOD CHLORIDE 0.9% 100 ML ONE (23:39)
[2019-01-03] VITALS (10 sets, daily range): BP systolic 95–130; BP diastolic 50–72; PULSE 58–115; RESP 18–24
[2019-01-03] MEDS: ACETAMINOPHEN 325 MG TAB PO PRN ×2 (00:21→11:17)
[2019-01-03] MEDS: GUAIFENESIN 20 MG/ML 5ML CUP PO PRN ×3 (01:46→22:25)
[2019-01-03] MEDS: CEPASTAT LOZENGE MT PRN ×2 (01:46→10:16)
[2019-01-03] MEDS: morphine 2 MG INJ IV PRN ×3 (01:46→22:25)
[2019-01-03] MEDS: SOD CHLORIDE 0.45% 1,000 ML IV SCH ×2 (03:30→10:53)
[2019-01-03] MEDS: CEFEPIME 1GM/50 ML (PMX) 50 ML IVPB SCH ×2 (08:08→22:24)
[2019-01-03] MEDS: FAMOTIDINE 20 MG TAB PO SCH (08:10)
[2019-01-03] MEDS: HEPARIN 5,000 UNIT/1 ML VIAL SC SCH ×2 (08:20→23:51)
[2019-01-03] MEDS: ALBUTEROL/IPRATROPIUM (NEB) 3 ML AMP HHN PRN ×2 (09:39→14:14)
[2019-01-03] MEDS: IBUPROFEN 600 MG TAB PO PRN (12:14)
[2019-01-03] MEDS: HYDROCODONE/APAP (5/325) TAB PO PRN (12:15)
--- NOTE | 2019-01-03 12:39 | PN ---
Date/Time of Note Date/Time of Note DATE: 01/03/19 TIME: 12:32 Assessment/Plan VTE Prophylaxis Risk score (from Ns)>0 risk: 4 SCD applied (from [facility]): No SCD contraindicated: other Pharmacological prophylaxis: heparin Lines/Catheters IV Catheter Type (from [facility]): Peripheral IV Urinary Cath still in place: No Assessment/Plan Hospital Course S: Patient having some mild hemoptysis. Seen by ID team yesterday. Still with positive fevers. Preliminary blood cultures are negative. Echocardiogram results reviewed. O: VS - see below PHYSICAL EXAMINATION: GENERAL: lying in bed, no acute distress HEENT: Pupils are equal, round, react to light. Extraocular muscles are intact. NECK: Supple. No thyromegaly. LUNGS: Distant breath sounds bilaterally. CARDIOVASCULAR: S1, S2 heard. No rubs or gallops. ABDOMEN: Soft, nontender, nondistended. Normal bowel sounds. No rebound or guarding. MUSCULOSKELETAL: No lower extremity edema bilaterally. NEUROLOGIC: No focal deficits. 2D ECHO 01/02/19) Conclusions: Normal left ventricular systolic function. Normal left ventricular cavity size. Mild concentric left ventricular hypertrophy. Ejection fraction is visually estimated at 55-60 %. Tissue Doppler/Mitral Doppler indices are consistent with impaired relaxation (Stage I diastolic dysfunction). Mild enlargement of right ventricle. Mild right ventricular hypokinesis. There is severe enlargement of right atrium. Mild mitral annular calcification. Trace mitral regurgitation. No significant aortic stenosis or insufficiency. Aortic cusps appear mildly calcified. s/p Tricuspid valve replacement. TV vmax 2.84cm. Max PG 32mmHg. Mean PG 19 mmHg. Estimated peak PA systolic pressure 45 mmHg. There is moderate tricuspid regurgitation. ASSESSMENT AND PLAN: 28-year-old male coming in with productive cough, possible hemoptysis for the last 7 to 10 days with signs of leukocytosis and pneumonia with a prior history of IV drug abuse, endocarditis, pacemaker and pulmonary embolism and tricuspid valve repair. 1. Cough and possible hemoptysis - secondary to the pneumonia. Patient still having fevers, and mild hemoptysis, white blood cell count is trending down however. -Continue broad spectrum antibiotics, low-dose IV fluids, Tylenol p.r.n. pain and fevers. - Follow up final culture results (prelim = negative), and ID recommendations 2. 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 U-tox is positive this time. - counseled on cessation. Monitor for signs of withdrawal. -Ativan PRN 3. Prior history of endocarditis- The patient does not have any fevers right now. His blood pressure appears to be stable. - Continue to monitor for now. - Follow up final blood culture results, 4. History of prior pacemaker. Continue to monitor patient on telemetry for now. 5. History of peptic ulcer disease - H2 sharona. Otherwise, no present issues. 6. History of tricuspid valve repair. -Awaiting results of echocardiogram ordered yesterday -follow-up results of this - Continue to monitor patient on telemetry for now. Result Diagram: 01/03/19 0622 01/03/19 0622 Results 24hrs Laboratory Tests Test 01/02/19 12:45 01/03/19 06:22 Blood Gas Specimen Source Blood arterial Arterial Blood Date Drawn 01/02/2019 1:13:26 PM Arterial Blood pH (Temp corrected) 7.472 H Arterial Blood pCO2 (Temp correct) 26.5 L Arterial Blood pO2 (Temp corrected) 85.3 Arterial Blood HCO3 18.9 L Arterial Blood Base Excess -3.5 L Arterial Blood Oxygen Saturation 96.7 Yuri Test ACCEPTAB Arterial Blood Gas Puncture Site Left Radial Arterial Blood Carboxyhemoglobin 0 Arterial Blood Methemoglobin 0.2 Blood Gas A-a O2 Differential 119.1 H Oxyhemoglobin Percent 96.5 Blood Gas Temperature 37.0 Blood Gas Modality NASAL CANNULA FiO2 33.0 Blood Gas Notified Whom TM Blood Gas Notified Time 01/02/2019 1:21:00 PM White Blood Count 13.7 H Red Blood Count 3.69 L Hemoglobin 9.8 L Hematocrit 30.5 L Mean Corpuscular Volume 82.7 Mean Corpuscular Hemoglobin 26.6 L Mean Corpuscular Hemoglobin Concent 32.1 Red Cell Distribution Width 14.9 H Platelet Count 171 Mean Platelet Volume 9.9 Immature Granulocytes % 1.000 H Neutrophils % 75.5 Lymphocytes % 10.1 L Monocytes % 5.5 Eosinophils % 7.5 H Basophils % 0.4 Nucleated Red Blood Cells % 0.0 Immature Granulocytes # 0.140 H Neutrophils # 10.4 H Lymphocytes # 1.4 Monocytes # 0.8 Eosinophils # 1.0 H Basophils # 0.1 Nucleated Red Blood Cells # 0.0 Sodium Level 134 L Potassium Level 3.3 L Chloride Level 105 Carbon Dioxide Level 20 L Anion Gap 9 Blood Urea Nitrogen 8 # Creatinine 0.75 Est Glomerular Filtrat Rate mL/min > 60 Glucose Level 148 Calcium Level 8.4 Exam/Review of Systems Exam Vitals Vital Signs Date Temp Pulse Resp B/P (MAP) Pulse Ox O2 O2 Flow FiO2 Time Delivery Rate 01/03/19 99.0 12:14 01/03/19 113 12:00 01/03/19 24 126/65 99 Mask 11:14 (85) 01/03/19 10.0 09:45 Intake and Output 01/02/19 01/02/19 01/03/19 1515:00 23:00 07:00 IntakeIntake Total 650 ml 800 ml OutputOutput Total 1150 ml BalanceBalance 650 ml -350 ml Results Results 24hrs Laboratory Tests Test 01/02/19 12:45 01/03/19 06:22 Blood Gas Specimen Source Blood arterial Arterial Blood Date Drawn 01/02/2019 1:13:26 PM Arterial Blood pH (Temp corrected) 7.472 H Arterial Blood pCO2 (Temp correct) 26.5 L Arterial Blood pO2 (Temp corrected) 85.3 Arterial Blood HCO3 18.9 L Arterial Blood Base Excess -3.5 L Arterial Blood Oxygen Saturation 96.7 Yuri Test ACCEPTAB Arterial Blood Gas Puncture Site Left Radial Arterial Blood Carboxyhemoglobin 0 Arterial Blood Methemoglobin 0.2 Blood Gas A-a O2 Differential 119.1 H Oxyhemoglobin Percent 96.5 Blood Gas Temperature 37.0 Blood Gas Modality NASAL CANNULA FiO2 33.0 Blood Gas Notified Whom TM Blood Gas Notified Time 01/02/2019 1:21:00 PM White Blood Count 13.7 H Red Blood Count 3.69 L Hemoglobin 9.8 L Hematocrit 30.5 L Mean Corpuscular Volume 82.7 Mean Corpuscular Hemoglobin 26.6 L Mean Corpuscular Hemoglobin Concent 32.1 Red Cell Distribution Width 14.9 H Platelet Count 171 Mean Platelet Volume 9.9 Immature Granulocytes % 1.000 H Neutrophils % 75.5 Lymphocytes % 10.1 L Monocytes % 5.5 Eosinophils % 7.5 H Basophils % 0.4 Nucleated Red Blood Cells % 0.0 Immature Granulocytes # 0.140 H Neutrophils # 10.4 H Lymphocytes # 1.4 Monocytes # 0.8 Eosinophils # 1.0 H Basophils # 0.1 Nucleated Red Blood Cells # 0.0 Sodium Level 134 L Potassium Level 3.3 L Chloride Level 105 Carbon Dioxide Level 20 L Anion Gap 9 Blood Urea Nitrogen 8 # Creatinine 0.75 Est Glomerular Filtrat Rate mL/min > 60 Glucose Level 148 Calcium Level 8.4 Medications Medication Current Medications IV Flush (NS 3 ml) 3 ml PER PROTOCOL IV ; Start 12/31/18 at 18:30 Ondansetron HCl (Zofran Inj) 4 mg Q6H PRN IV NAUSEA/VOMITING Last administered on 01/02/19 20:41; Admin Dose 4 MG; Start 12/31/18 at 18:30 Acetaminophen (Tylenol Tab) 650 mg Q6H PRN PO .PAIN 1-3 OR TEMP Last administered on 01/03/19 11:17; Admin Dose 650 MG; Start 12/31/18 at 18:30 Acetaminophen/ Hydrocodone Bitart ([place] (5/325)) 1 tab Q6H PRN PO .MOD PAIN 4- 6 Last administered on 01/03/19 12:15; Admin Dose 1 TAB; Start 12/31/18 at 18:30 Morphine Sulfate (morphine) 2 mg Q4H PRN IV .SEVERE PAIN 7-10 Last administered on 01/03/19 10:16; Admin Dose 2 MG; Start 12/31/18 at 18:30 Docusate Sodium (Colace) 100 mg Q12H PRN PO .CONSTIPATION; Start 12/31/18 at 18:30 Magnesium Hydroxide (Milk Of Mag) 30 ml DAILY PRN PO .CONSTIPATION; Start 12/31/18 at 18:30 Lorazepam (Ativan) 0.5 mg Q6H PRN IV ANXIETY Last administered on 01/02/19 12:32; Admin Dose 0.5 MG; Start 12/31/18 at 18:30 Albuterol/ Ipratropium (Duoneb) 3 ml Q4H RESP THERAPY PRN HHN SHORTNESS OF BREATH Last administered on 01/03/19 09:39; Admin Dose 3 ML; Start 12/31/18 at 18:30 Hydralazine HCl (Apresoline) 10 mg Q6H PRN IV ELEVATED BLOOD PRESSURE; Start 12/31/18 at 18:30 Nitroglycerin (Nitroglycerin (Sl Tab) 0.4 Mg) 1 tab Q5M PRN SL ANGINA; Start 12/31/18 at 18:30 Guaifenesin (Robitussin Liquid Cup) 200 mg Q4H PRN PO COUGH Last administered on 01/03/19 10:16; Admin Dose 200 MG; Start 01/01/19 at 11:30 Sodium Chloride 1,000 ml @ 75 mls/hr [id number] IV Last administered on 01/03/19 10:53; Admin Dose 75 MLS/HR; Start 01/01/19 at 11:30 Heparin Sodium (Porcine) (Heparin (5000 Units/1ml)) 5,000 unit BID SC Last a dministered on 01/03/19 08:20; Admin Dose 5,000 UNIT; Start 01/01/19 at 21:00 Ibuprofen (Motrin) 600 mg Q6H PRN PO MILD PAIN LEVEL 1-3 Last administered on 01/03/19 12:14; Admin Dose 600 MG; Start 01/01/19 at 17:30 Phenol (Cepastat Lozenge) 1 lozenge Q1H PRN MT COUGH Last administered on 01/03/19 10:16; Admin Dose 1 LOZENGE; Start 01/02/19 at 12:30 Famotidine (Pepcid) 20 mg DAILY PO Last administered on 01/03/19 08:10; Admin Dose 20 MG; Start 01/03/19 at 09:00 Cefepime HCl 50 ml @ 100 mls/hr Q12 IVPB Last administered on 01/03/19 08:08; Admin Dose 100 MLS/HR; Start 01/02/19 at 21:00 Azithromycin 250 ml @ 250 mls/hr Q24H IVPB Last administered on 01/02/19 18:45; Admin Dose 250 MLS/HR; Start 01/02/19 at 17:00 ROWAN OVALLE Jan 03, 2019 12:39
[2019-01-03] MEDS: AZITHROMYCIN 500MG/NS (PMX) 250 ML IVPB SCH (17:24)
--- NOTE | 2019-01-03 19:20 | CONS ---
Assessment/Plan Assessment/Plan Hospital Course (Demo Recall) 1220 Patient is awake, comfortable on face mask HIV serology negative. Microbiology: Blood cultures + GPR. Chest x-ray on admission revealed focal left lower lobe infiltrate. Mild right midlung atelectasis. Antimicrobials: Zithromax, Cefepime. Physical examination: Well-developed middle-aged man who is awake in no distress. Head atraumatic normocephalic sclera nonicteric vehicle mucosa dry neck is supple chest rise symmetrical breath sounds with scattered rhonchi. Heart: S1-S2. Abdomen soft bowel sounds present extremities without cyanosis. Assessment: 1. Sepsis present on admission 2. Community-acquired pneumonia 3. Hemoptysis 4. History of endocarditis 5. IV drug abuse 6. Coronary artery disease with a history of tricuspid valve replacement and permanent pacemaker placement 6. Bacteremia cw contaminant Plan: Stable, continue abx, await for chest CT and sputum cx, continue abx ?pulmonary eval Consultation Date/Type/Reason Admit Date/Time Dec 31, 2018 at 18:14 Initial Consult Date Type of Consult id Date/Time of Note DATE: 01/03/19 TIME: 19:16 Exam/Review of Systems Exam Vitals Vital Signs Date Temp Pulse Resp B/P (MAP) Pulse Ox O2 O2 Flow FiO2 Time Delivery Rate 01/03/19 10.0 18:07 01/03/19 82 16:00 01/03/19 97.8 20 111/72 97 Mask 15:19 (85) Intake and Output 01/02/19 01/02/19 01/03/19 1515:00 23:00 07:00 IntakeIntake Total 650 ml 800 ml OutputOutput Total 1150 ml BalanceBalance 650 ml -350 ml Results Result Diagram: 01/03/19 0622 01/03/19 0622 Results 24hrs Laboratory Tests Test 01/03/19 06:22 White Blood Count 13.7 H Red Blood Count 3.69 L Hemoglobin 9.8 L Hematocrit 30.5 L Mean Corpuscular Volume 82.7 Mean Corpuscular Hemoglobin 26.6 L Mean Corpuscular Hemoglobin Concent 32.1 Red Cell Distribution Width 14.9 H Platelet Count 171 Mean Platelet Volume 9.9 Immature Granulocytes % 1.000 H Neutrophils % 75.5 Lymphocytes % 10.1 L Monocytes % 5.5 Eosinophils % 7.5 H Basophils % 0.4 Nucleated Red Blood Cells % 0.0 Immature Granulocytes # 0.140 H Neutrophils # 10.4 H Lymphocytes # 1.4 Monocytes # 0.8 Eosinophils # 1.0 H Basophils # 0.1 Nucleated Red Blood Cells # 0.0 Sodium Level 134 L Potassium Level 3.3 L Chloride Level 105 Carbon Dioxide Level 20 L Anion Gap 9 Blood Urea Nitrogen 8 # Creatinine 0.75 Est Glomerular Filtrat Rate mL/min > 60 Glucose Level 148 Calcium Level 8.4 Medications Medication Current Medications IV Flush (NS 3 ml) 3 ml PER PROTOCOL IV ; Start 12/31/18 at 18:30 Ondansetron HCl (Zofran Inj) 4 mg Q6H PRN IV NAUSEA/VOMITING Last administered on 01/02/19 20:41; Admin Dose 4 MG; Start 12/31/18 at 18:30 Acetaminophen (Tylenol Tab) 650 mg Q6H PRN PO .PAIN 1-3 OR TEMP Last administered on 01/03/19 11:17; Admin Dose 650 MG; Start 12/31/18 at 18:30 Acetaminophen/ Hydrocodone Bitart ([place] (5/325)) 1 tab Q6H PRN PO .MOD PAIN 4- 6 Last administered on 01/03/19 12:15; Admin Dose 1 TAB; Start 12/31/18 at 18:30 Morphine Sulfate (morphine) 2 mg Q4H PRN IV .SEVERE PAIN 7-10 Last administered on 01/03/19 10:16; Admin Dose 2 MG; Start 12/31/18 at 18:30 Docusate Sodium (Colace) 100 mg Q12H PRN PO .CONSTIPATION; Start 12/31/18 at 18:30 Magnesium Hydroxide (Milk Of Mag) 30 ml DAILY PRN PO .CONSTIPATION; Start 12/31/18 at 18:30 Lorazepam (Ativan) 0.5 mg Q6H PRN IV ANXIETY Last administered on 01/02/19 12:32; Admin Dose 0.5 MG; Start 12/31/18 at 18:30 Albuterol/ Ipratropium (Duoneb) 3 ml Q4H RESP THERAPY PRN HHN SHORTNESS OF BREATH Last administered on 01/03/19 14:14; Admin Dose 3 ML; Start 12/31/18 at 18:30 Hydralazine HCl (Apresoline) 10 mg Q6H PRN IV ELEVATED BLOOD PRESSURE; Start 12/31/18 at 18:30 Nitroglycerin (Nitroglycerin (Sl Tab) 0.4 Mg) 1 tab Q5M PRN SL ANGINA; Start 12/31/18 at 18:30 Guaifenesin (Robitussin Liquid Cup) 200 mg Q4H PRN PO COUGH Last administered on 01/03/19 10:16; Admin Dose 200 MG; Start 01/01/19 at 11:30 Sodium Chloride 1,000 ml @ 75 mls/hr [id number] IV Last administered on 01/03/19 10:53; Admin Dose 75 MLS/HR; Start 01/01/19 at 11:30 Heparin Sodium (Porcine) (Heparin (5000 Units/1ml)) 5,000 unit BID SC Last administered on 01/03/19 08:20; Admin Dose 5,000 UNIT; Start 01/01/19 at 21:00 Ibuprofen (Motrin) 600 mg Q6H PRN PO MILD PAIN LEVEL 1-3 Last administered on 01/03/19 12:14; Admin Dose 600 MG; Start 01/01/19 at 17:30 Phenol (Cepastat Lozenge) 1 lozenge Q1H PRN MT COUGH Last administered on 10:16; Admin Dose 1 LOZENGE; Start 01/02/19 at 12:30 Famotidine (Pepcid) 20 mg DAILY PO Last administered on 01/03/19 08:10; Admin Dose 20 MG; Start 01/03/19 at 09:00 Cefepime HCl 50 ml @ 100 mls/hr Q12 IVPB Last administered on 01/03/19 08:08; Admin Dose 100 MLS/HR; Start 01/02/19 at 21:00 Azithromycin 250 ml @ 250 mls/hr Q24H IVPB Last administered on 01/03/19 17:24; Admin Dose 250 MLS/HR; Start 01/02/19 at 17:00 HAYLEE ENGLE NP Jan 03, 2019 19:20
[2019-01-03] MEDS: ONDANSETRON 4 MG INJ IV PRN (22:25)
[2019-01-04] VITALS (10 sets, daily range): BP systolic 105–129; BP diastolic 55–82; PULSE 77–127; RESP 18–21
[2019-01-04] MEDS: GUAIFENESIN 20 MG/ML 5ML CUP PO PRN ×3 (03:45→22:55)
[2019-01-04] MEDS: SOD CHLORIDE 0.45% 1,000 ML IV SCH ×2 (03:47→17:12)
[2019-01-04] MEDS: morphine 2 MG INJ IV PRN ×3 (03:56→23:32)
[2019-01-04] MEDS: HYDROCODONE/APAP (5/325) TAB PO PRN (04:15)
--- NOTE | 2019-01-04 09:54 | CONS ---
Assessment/Plan Assessment/Plan Hospital Course (Demo Recall) ID PROGRESS NOTE CURRENT ABX: DAY # Azith + Cefepime 01/04/19 0550 01/04/19 0550 24H INTERVAL SUMMARY * Napping on supplemental O2 via NC, awakens, no complaints, no new issues * CHART REVIEWED: TMax 100.0, WBC still elevated * Patient is awake, comfortable on face mask DIAGNOSTIC IMAGING * Chest x-ray on admission revealed focal left lower lobe infiltrate. Mild right midlung atelectasis. * 2D ECHO 01/02/19) Conclusions: Normal left ventricular systolic function. Normal left ventricular cavity size. Mild concentric left ventricular hypertrophy. Ejection fraction is visually estimated at 55-60 %. Tissue Doppler/Mitral Doppler indices are consistent with impaired relaxation (Stage I diastolic dysfunction). Mild enlargement of right ventricle. Mild right ventricular hypokinesis. There is severe enlargement of right atrium. Mild mitral annular calcification. Trace mitral regurgitation. No significant aortic stenosis or insufficiency. Aortic cusps appear mildly calcified. s/p Tricuspid valve replacement. TV vmax 2.84cm. Max PG 32mmHg. Mean PG 19 mmHg. Estimated peak PA systolic pressure 45 mmHg. There is moderate tricuspid regurgitation. MICRO/OTHER * HIV serology negative. * SPUTUM CX: RESPIRATORY CULTURE Preliminary Organism 1 NORMAL RESPIRATORY ASHLEY QUANTITY 1+ * (-) MRSA nares * Blood cultures + GPR 1/2 bottles = likely skin contaminant PHYSICAL EXAMINATION: GENERAL: VSS HEENT: AT, NC, anicteric NECK: Supple, CHEST: Equal chest rise bilaterally, without dyspnea on observation HEART: Pulse RRR ABDOMEN: Soft / NT EXTREMITIES: Warm, dry SKIN: No rash, no diaphoresis ID ASSESSMENT 28 yo M admit with: 1. Sepsis present on admission 2. Community-acquired pneumonia 3. Hemoptysis 4. History of endocarditis 5. IV drug abuse 6. Coronary artery disease with a history of tricuspid valve replacement and permanent pacemaker placement 7. Bacteremia cw contaminant (-)MRSA Nares ABX ALLERGIES: KNDA INVASIVES: PIV CURRENT ABX: DAY ## Azith + Cefepime ID RECOMMENDATIONS/PLAN: 1. Continue current ABX 2. ID Colleague to f/u tomorrow. . Consultation Date/Type/Reason Admit Date/Time Dec 31, 2018 at 18:14 Initial Consult Date Date/Time of Note DATE: 01/04/19 TIME: 09:54 Exam/Review of Systems Exam Vitals Vital Signs Date Temp Pulse Resp B/P (MAP) Pulse Ox O2 O2 Flow FiO2 Time Delivery Rate 01/04/19 94 08:00 01/04/19 98.4 18 105/55 96 Nasal 07:12 (72) Cannula 01/04/19 10.0 02:56 Intake and Output 01/03/19 01/03/19 01/04/19 1515:00 23:00 07:00 IntakeIntake Total 2000 ml 1350 ml 1100 ml OutputOutput Total 2100 ml 3000 ml 2700 ml BalanceBalance -100 ml -1650 ml -1600 ml Results Result Diagram: 01/04/19 0550 01/04/19 0550 Results 24hrs Laboratory Tests Test 01/04/19 05:50 White Blood Count 14.9 H Red Blood Count 3.42 L Hemoglobin 9.1 L Hematocrit 28.8 L Mean Corpuscular Volume 84.2 Mean Corpuscular Hemoglobin 26.6 L Mean Corpuscular Hemoglobin Concent 31.6 L Red Cell Distribution Width 14.8 H Platelet Count 164 Mean Platelet Volume 10.1 Immature Granulocytes % 1.300 H Neutrophils % 84.7 H Lymphocytes % 4.8 L Monocytes % 4.6 Eosinophils % 4.2 Basophils % 0.4 Nucleated Red Blood Cells % 0.0 Immature Granulocytes # 0.200 H Neutrophils # 12.6 H Lymphocytes # 0.7 L Monocytes # 0.7 Eosinophils # 0.6 H Basophils # 0.1 Nucleated Red Blood Cells # 0.0 Sodium Level 131 L Potassium Level 4.3 Chloride Level 101 Carbon Dioxide Level 20 L Anion Gap 10 Blood Urea Nitrogen 11 Creatinine 0.91 Est Glomerular Filtrat Rate mL/min > 60 Glucose Level 93 # Calcium Level 8.0 L Medications Medication Current Medications IV Flush (NS 3 ml) 3 ml PER PROTOCOL IV ; Start 12/31/18 at 18:30 Ondansetron HCl (Zofran Inj) 4 mg Q6H PRN IV NAUSEA/VOMITING Last administered on 01/03/19at 22:25; Admin Dose 4 MG; Start 12/31/18 at 18:30 Acetaminophen (Tylenol Tab) 650 mg Q6H PRN PO .PAIN 1-3 OR TEMP Last administered on 01/03/19at 11:17; Admin Dose 650 MG; Start 12/31/18 at 18:30 Acetaminophen/ Hydrocodone Bitart ([place] (5/325)) 1 tab Q6H PRN PO .MOD PAIN 4- 6 Last administered on 01/04/19 04:15; Admin Dose 1 TAB; Start 12/31/18 at 18:30 Morphine Sulfate (morphine) 2 mg Q4H PRN IV .SEVERE PAIN 7-10 Last administered on 01/03/19 22:25; Admin Dose 2 MG; Start 12/31/18 at 18:30 Docusate Sodium (Colace) 100 mg Q12H PRN PO .CONSTIPATION; Start 12/31/18 at 18:30 Magnesium Hydroxide (Milk Of Mag) 30 ml DAILY PRN PO .CONSTIPATION; Start 12/31/18 at 18:30 Lorazepam (Ativan) 0.5 mg Q6H PRN IV ANXIETY Last administered on 01/02/19 12:32; Admin Dose 0.5 MG; Start 12/31/18 at 18:30 Albuterol/ Ipratropium (Duoneb) 3 ml Q4H RESP THERAPY PRN HHN SHORTNESS OF BREATH Last administered on 01/03/19 14:14; Admin Dose 3 ML; Start 12/31/18 at 18:30 Hydralazine HCl (Apresoline) 10 mg Q6H PRN IV ELEVATED BLOOD PRESSURE; Start 12/31/18 at 18:30 Nitroglycerin (Nitroglycerin (Sl Tab) 0.4 Mg) 1 tab Q5M PRN SL ANGINA; Start 12/31/18 at 18:30 Guaifenesin (Robitussin Liquid Cup) 200 mg Q4H PRN PO COUGH Last administered on 01/04/19 03:45; Admin Dose 200 MG; Start 01/01/19 at 11:30 Sodium Chloride 1,000 ml @ 75 mls/hr [id number] IV Last administered on 01/04/19 03:47; Admin Dose 75 MLS/HR; Start 01/01/19 at 11:30 Heparin Sodium (Porcine) (Heparin (5000 Units/1ml)) 5,000 unit BID SC Last administered on 01/03/19 23:51; Admin Dose 5,000 UNIT; Start 01/01/19 at 21:00 Ibuprofen (Motrin) 600 mg Q6H PRN PO MILD PAIN LEVEL 1-3 Last administered on 01/03/19at 12:14; Admin Dose 600 MG; Start 01/01/19 at 17:30 Phenol (Cepastat Lozenge) 1 lozenge Q1H PRN MT COUGH Last administered on 01/03/19at 10:16; Admin Dose 1 LOZENGE; Start 01/02/19 at 12:30 Famotidine (Pepcid) 20 mg DAILY PO Last administered on 01/03/19at 08:10; Admin Dose 20 MG; Start 01/03/19 at 09:00 Cefepime HCl 50 ml @ 100 mls/hr Q12 IVPB Last administered on 01/03/19at 22:24; Admin Dose 100 MLS/HR; Start 01/02/19 at 21:00 Azithromycin 250 ml @ 250 mls/hr Q24H IVPB Last administered on 01/03/19at 17:24; Admin Dose 250 MLS/HR; Start 01/02/19 at 17:00 EMILIE BAUTISTA NP Jan 04, 2019 09:54
[2019-01-04] MEDS: CEFEPIME 1GM/50 ML (PMX) 50 ML IVPB SCH ×2 (10:04→21:30)
[2019-01-04] MEDS: FAMOTIDINE 20 MG TAB PO SCH (10:04)
[2019-01-04] MEDS: HEPARIN 5,000 UNIT/1 ML VIAL SC SCH (10:08)
[2019-01-04] MEDS ORDERED: CEPASTAT LOZENGE MT PRN (11:30)
--- NOTE | 2019-01-04 11:36 | PN ---
Date/Time of Note Date/Time of Note DATE: 01/04/19 TIME: 11:33 Assessment/Plan VTE Prophylaxis Risk score (from Ns)>0 risk: 4 SCD applied (from Nsg): Yes Pharmacological prophylaxis: other Lines/Catheters IV Catheter Type (from Nrsg): Peripheral IV Urinary Cath still in place: No Assessment/Plan Hospital Course S: Patient still with occasional fevers, appears less in intensity now. Seen by ID team yesterday. Awaiting results of CT chest. O: VS - see below PHYSICAL EXAMINATION: GENERAL: lying in bed, no acute distress HEENT: Pupils are equal, round, react to light. Extraocular muscles are intact. NECK: Supple. No thyromegaly. LUNGS: Distant breath sounds bilaterally. CARDIOVASCULAR: S1, S2 heard. No rubs or gallops. ABDOMEN: Soft, nontender, nondistended. Normal bowel sounds. No rebound or guarding. MUSCULOSKELETAL: No lower extremity edema bilaterally. NEUROLOGIC: No focal deficits. 2D ECHO 01/02/19) Conclusions: Normal left ventricular systolic function. Normal left ventricular cavity size. Mild concentric left ventricular hypertrophy. Ejection fraction is visually estimated at 55-60 %. Tissue Doppler/Mitral Doppler indices are consistent with impaired relaxation (Stage I diastolic dysfunction). Mild enlargement of right ventricle. Mild right ventricular hypokinesis. There is severe enlargement of right atrium. Mild mitral annular calcification. Trace mitral regurgitation. No significant aortic stenosis or insufficiency. Aortic cusps appear mildly calcified. s/p Tricuspid valve replacement. TV vmax 2.84cm. Max PG 32mmHg. Mean PG 19 mmHg. Estimated peak PA systolic pressure 45 mmHg. There is moderate tricuspid regurgitation. ASSESSMENT AND PLAN: 28-year-old male coming in with productive cough, possible hemoptysis for the last 7 to 10 days with signs of leukocytosis and pneumonia with a prior history of IV drug abuse, endocarditis, pacemaker and pulmonary embolism and tricuspid valve repair. 1. Cough and possible hemoptysis - secondary to the pneumonia-slowly improving now, less frequent fevers, and mild hemoptysis, white blood cell count is trending down. -Continue broad spectrum antibiotics, low-dose IV fluids, Tylenol p.r.n. pain and fevers. - Follow up final culture results (prelim = negative), and ID recommendations, CT chest results 2. 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 - counseled on cessation. Monitor for signs of withdrawal. -Ativan PRN 3. Prior history of endocarditis- The patient does not have any fevers right now. His blood pressure appears to be stable. Echocardiogram results reviewed on this admission - Continue to monitor for now. - Follow up final blood culture results, 4. History of prior pacemaker. Continue to monitor patient on telemetry for now. 5. History of peptic ulcer disease - H2 sharona. Otherwise, no present issues. 6. History of tricuspid valve repair-again echocardiogram results reviewed - Continue to monitor patient on telemetry for now. Result Diagram: 01/04/19 0550 01/04/19 0550 Results 24hrs Laboratory Tests Test 01/04/19 05:50 White Blood Count 14.9 H Red Blood Count 3.42 L Hemoglobin 9.1 L Hematocrit 28.8 L Mean Corpuscular Volume 84.2 Mean Corpuscular Hemoglobin 26.6 L Mean Corpuscular Hemoglobin Concent 31.6 L Red Cell Distribution Width 14.8 H Platelet Count 164 Mean Platelet Volume 10.1 Immature Granulocytes % 1.300 H Neutrophils % 84.7 H Lymphocytes % 4.8 L Monocytes % 4.6 Eosinophils % 4.2 Basophils % 0.4 Nucleated Red Blood Cells % 0.0 Immature Granulocytes # 0.200 H Neutrophils # 12.6 H Lymphocytes # 0.7 L Monocytes # 0.7 Eosinophils # 0.6 H Basophils # 0.1 Nucleated Red Blood Cells # 0.0 Sodium Level 131 L Potassium Level 4.3 Chloride Level 101 Carbon Dioxide Level 20 L Anion Gap 10 Blood Urea Nitrogen 11 Creatinine 0.91 Est Glomerular Filtrat Rate mL/min > 60 Glucose Level 93 # Calcium Level 8.0 L Exam/Review of Systems Exam Vitals Vital Signs Date Temp Pulse Resp B/P (MAP) Pulse Ox O2 O2 Flow FiO2 Time Delivery Rate 01/04/19 98.9 78 18 109/70 95 Nasal 11:17 (83) Cannula 01/04/19 3.0 09:00 Intake and Output 01/03/19 01/03/19 01/04/19 1515:00 23:00 07:00 IntakeIntake Total 2000 ml 1350 ml 1100 ml OutputOutput Total 2100 ml 3000 ml 2700 ml BalanceBalance -100 ml -1650 ml -1600 ml Results Results 24hrs Laboratory Tests Test 01/04/19 05:50 White Blood Count 14.9 H Red Blood Count 3.42 L Hemoglobin 9.1 L Hematocrit 28.8 L Mean Corpuscular Volume 84.2 Mean Corpuscular Hemoglobin 26.6 L Mean Corpuscular Hemoglobin Concent 31.6 L Red Cell Distribution Width 14.8 H Platelet Count 164 Mean Platelet Volume 10.1 Immature Granulocytes % 1.300 H Neutrophils % 84.7 H Lymphocytes % 4.8 L Monocytes % 4.6 Eosinophils % 4.2 Basophils % 0.4 Nucleated Red Blood Cells % 0.0 Immature Granulocytes # 0.200 H Neutrophils # 12.6 H Lymphocytes # 0.7 L Monocytes # 0.7 Eosinophils # 0.6 H Basophils # 0.1 Nucleated Red Blood Cells # 0.0 Sodium Level 131 L Potassium Level 4.3 Chloride Level 101 Carbon Dioxide Level 20 L Anion Gap 10 Blood Urea Nitrogen 11 Creatinine 0.91 Est Glomerular Filtrat Rate mL/min > 60 Glucose Level 93 # Calcium Level 8.0 L Medications Medication Current Medications IV Flush (NS 3 ml) 3 ml PER PROTOCOL IV ; Start 12/31/18 at 18:30 Ondansetron HCl (Zofran Inj) 4 mg Q6H PRN IV NAUSEA/VOMITING Last administered on 01/03/19 22:25; Admin Dose 4 MG; Start 12/31/18 at 18:30 Acetaminophen (Tylenol Tab) 650 mg Q6H PRN PO .PAIN 1-3 OR TEMP Last administered on 01/03/19 11:17; Admin Dose 650 MG; Start 12/31/18 at 18:30 Acetaminophen/ Hydrocodone Bitart ([place] (5/325)) 1 tab Q6H PRN PO .MOD PAIN 4- 6 Last administered on 01/04/19 04:15; Admin Dose 1 TAB; Start 12/31/18 at 18:30 Morphine Sulfate (morphine) 2 mg Q4H PRN IV .SEVERE PAIN 7-10 Last administered on 01/03/19 22:25; Admin Dose 2 MG; Start 12/31/18 at 18:30 Docusate Sodium (Colace) 100 mg Q12H PRN PO .CONSTIPATION; Start 12/31/18 at 18:30 Magnesium Hydroxide (Milk Of Mag) 30 ml DAILY PRN PO .CONSTIPATION; Start 12/31/18 at 18:30 Lorazepam (Ativan) 0.5 mg Q6H PRN IV ANXIETY Last administered on 01/02/19 12:32; Admin Dose 0.5 MG; Start 12/31/18 at 18:30 Albuterol/ Ipratropium (Duoneb) 3 ml Q4H RESP THERAPY PRN HHN SHORTNESS OF BREATH Last administered on 01/03/19 14:14; Admin Dose 3 ML; Start 12/31/18 at 18:30 Hydralazine HCl (Apresoline) 10 mg Q6H PRN IV ELEVATED BLOOD PRESSURE; Start 12/31/18 at 18:30 Nitroglycerin (Nitroglycerin (Sl Tab) 0.4 Mg) 1 tab Q5M PRN SL ANGINA; Start 12/31/18 at 18:30 Guaifenesin (Robitussin Liquid Cup) 200 mg Q4H PRN PO COUGH Last administered on 01/04/19 03:45; Admin Dose 200 MG; Start 01/01/19 at 11:30 Sodium Chloride 1,000 ml @ 75 mls/hr [id number] IV Last administered on 01/04/19 03:47; Admin Dose 75 MLS/HR; Start 01/01/19 at 11:30 Heparin Sodium (Porcine) (Heparin (5000 Units/1ml)) 5,000 unit BID SC Last administered on 01/04/19 10:08; Admin Dose 5,000 UNIT; Start 01/01/19 at 21:00 Ibuprofen (Motrin) 600 mg Q6H PRN PO MILD PAIN LEVEL 1-3 Last administered on 01/03/19 12:14; Admin Dose 600 MG; Start 01/01/19 at 17:30 Phenol (Cepastat Lozenge) 1 lozenge Q1H PRN MT COUGH Last administered on 01/03/19 10:16; Admin Dose 1 LOZENGE; Start 01/02/19 at 12:30 Famotidine (Pepcid) 20 mg DAILY PO Last administered on 01/04/19 10:04; Admin Dose 20 MG; Start 01/03/19 at 09:00 Cefepime HCl 50 ml @ 100 mls/hr Q12 IVPB Last administered on 01/04/19 10:04; Admin Dose 100 MLS/HR; Start 01/02/19 at 21:00 Azithromycin 250 ml @ 250 mls/hr Q24H IVPB Last administered on 01/03/19at 17:24; Admin Dose 250 MLS/HR; Start 01/02/19 at 17:00 Phenol (Cepastat Lozenge) 1 lozenge Q1H PRN MT COUGH; Start 01/04/19 at 11:30; Status ROWAN BEGUM Jan 04, 2019 11:36
[2019-01-04] MEDS: CEPASTAT LOZENGE MT PRN ×4 (13:38→22:56)
[2019-01-04] MEDS: AZITHROMYCIN 500MG/NS (PMX) 250 ML IVPB SCH (17:12)
[2019-01-05] VITALS (16 sets, daily range): BP systolic 97–139; BP diastolic 53–83; PULSE 63–121; RESP 18–23
[2019-01-05] MEDS: CEPASTAT LOZENGE MT PRN ×8 (01:03→23:27)
[2019-01-05] MEDS: ONDANSETRON 4 MG INJ IV PRN (01:03)
[2019-01-05] MEDS: GUAIFENESIN 20 MG/ML 5ML CUP PO PRN ×5 (03:37→21:13)
[2019-01-05] MEDS: morphine 2 MG INJ IV PRN ×5 (03:41→21:15)
[2019-01-05] MEDS: CEFEPIME 1GM/50 ML (PMX) 50 ML IVPB SCH ×2 (08:43→21:13)
[2019-01-05] MEDS: FAMOTIDINE 20 MG TAB PO SCH (08:43)
[2019-01-05] MEDS: SOD CHLORIDE 0.45% 1,000 ML IV SCH ×2 (08:48→22:10)
--- NOTE | 2019-01-05 11:21 | PN ---
Date/Time of Note Date/Time of Note DATE: 01/05/19 TIME: 11:18 Assessment/Plan VTE Prophylaxis Risk score (from Ns)>0 risk: 6 SCD applied (from Ns): Yes Pharmacological prophylaxis: other Lines/Catheters IV [facility] Type (from [facility]): Peripheral IV Urinary Cath still in place: No Assessment/Plan Hospital Course S: Patient having less frequent fevers now, still having cough symptoms. Appears to be emotionally labile at times per nursing staff. Tolerating diet. O: VS - see below PHYSICAL EXAMINATION: GENERAL: lying in bed, no acute distress HEENT: Pupils are equal, round, react to light. Extraocular muscles are intact. NECK: Supple. No thyromegaly. LUNGS: Distant breath sounds bilaterally. CARDIOVASCULAR: S1, S2 heard. No rubs or gallops. ABDOMEN: Soft, nontender, nondistended. Normal bowel sounds. No rebound or guarding. MUSCULOSKELETAL: No lower extremity edema bilaterally. NEUROLOGIC: No focal deficits. 2D ECHO 01/02/19) Conclusions: Normal left ventricular systolic function. Normal left ventricular cavity size. Mild concentric left ventricular hypertrophy. Ejection fraction is visually estimated at 55-60 %. Tissue Doppler/Mitral Doppler indices are consistent with impaired relaxation (Stage I diastolic dysfunction). Mild enlargement of right ventricle. Mild right ventricular hypokinesis. There is severe enlargement of right atrium. Mild mitral annular calcification. Trace mitral regurgitation. No significant aortic stenosis or insufficiency. Aortic cusps appear mildly calcified. s/p Tricuspid valve replacement. TV vmax 2.84cm. Max PG 32mmHg. Mean PG 19 mmHg. Estimated peak PA systolic pressure 45 mmHg. There is moderate tricuspid regurgitation. ASSESSMENT AND PLAN: 28-year-old male coming in with productive cough, possible hemoptysis for last 7 to 10 days prior to admission, with signs of leukocytosis and pneumonia with a prior history of IV drug abuse, endocarditis, pacemaker and pulmonary embolism and tricuspid valve repair. 1. Cough and possible hemoptysis - secondary to the pneumonia-slowly improving now, less frequent fevers, and mild hemoptysis, still with elevated white blood cell count today -Continue broad spectrum antibiotics, low-dose IV fluids, Tylenol p.r.n. pain and fevers. - Follow up final culture results (prelim = December 31 - 2 out of 2 bottles positive gram-negative rods) and ID recommendations, CT chest results -results still pending 2. 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 - counseled on cessation. Monitor for signs of withdrawal. -Ativan PRN 3. Prior history of endocarditis- The patient does not have any fevers right now. His blood pressure appears to be stable. Echocardiogram results reviewed on this admission-no apparent acute findings, however first set of blood culture from December 31 are 2 out of 2 bottles positive for gram-negative rods. - Continue to monitor for now. - Follow up final blood culture results 4. History of prior pacemaker. Continue to monitor patient on telemetry for now. 5. History of peptic ulcer disease - H2 sharona. Otherwise, no present issues. 6. History of tricuspid valve repair-again echocardiogram results reviewed - Continue to monitor patient on telemetry for now. Result Diagram: 01/05/19 0557 01/05/19 0557 Results 24hrs Laboratory Tests Test 01/05/19 05:57 White Blood Count 15.5 H Red Blood Count 3.65 L Hemoglobin 9.7 L Hematocrit 30.3 L Mean Corpuscular Volume 83.0 Mean Corpuscular Hemoglobin 26.6 L Mean Corpuscular Hemoglobin Concent 32.0 Red Cell Distribution Width 14.8 H Platelet Count 210 # Mean Platelet Volume 9.8 Immature Granulocytes % 1.100 H Neutrophils % 75.7 Lymphocytes % 10.9 L Monocytes % 6.2 Eosinophils % 5.6 Basophils % 0.5 Nucleated Red Blood Cells % 0.0 Immature Granulocytes # 0.170 H Neutrophils # 11.8 H Lymphocytes # 1.7 Monocytes # 1.0 H Eosinophils # 0.9 H Basophils # 0.1 Nucleated Red Blood Cells # 0.0 Sodium Level 132 L Potassium Level 4.0 Chloride Level 99 Carbon Dioxide Level 23 Anion Gap 10 Blood Urea Nitrogen 9 Creatinine 0.82 Est Glomerular Filtrat Rate mL/min > 60 Glucose Level 104 Calcium Level 8.5 Exam/Review of Systems Exam Vitals Vital Signs Date Temp Pulse Resp B/P (MAP) Pulse Ox O2 O2 Flow FiO2 Time Delivery Rate 01/05/19 89 08:00 01/05/19 Nasal 4.0 07:38 Cannula 01/05/19 98.6 22 121/73 96 07:31 (89) 01/04/19 21 18:51 Intake and Output 01/04/19 01/04/19 01/05/19 1515:00 23:00 07:00 IntakeIntake Total 1700 ml 1200 ml OutputOutput Total 2200 ml 1400 ml BalanceBalance -500 ml -200 ml Results Results 24hrs Laboratory Tests Test 01/05/19 05:57 White Blood Count 15.5 H Red Blood Count 3.65 L Hemoglobin 9.7 L Hematocrit 30.3 L Mean Corpuscular Volume 83.0 Mean Corpuscular Hemoglobin 26.6 L Mean Corpuscular Hemoglobin Concent 32.0 Red Cell Distribution Width 14.8 H Platelet Count 210 # Mean Platelet Volume 9.8 Immature Granulocytes % 1.100 H Neutrophils % 75.7 Lymphocytes % 10.9 L Monocytes % 6.2 Eosinophils % 5.6 Basophils % 0.5 Nucleated Red Blood Cells % 0.0 Immature Granulocytes # 0.170 H Neutrophils # 11.8 H Lymphocytes # 1.7 Monocytes # 1.0 H Eosinophils # 0.9 H Basophils # 0.1 Nucleated Red Blood Cells # 0.0 Sodium Level 132 L Potassium Level 4.0 Chloride Level 99 Carbon Dioxide Level 23 Anion Gap 10 Blood Urea Nitrogen 9 Creatinine 0.82 Est Glomerular Filtrat Rate mL/min > 60 Glucose Level 104 Calcium Level 8.5 Medications Medication Current Medications IV Flush (NS 3 ml) 3 ml PER PROTOCOL IV ; Start 12/31/18 at 18:30 Ondansetron HCl (Zofran Inj) 4 mg Q6H PRN IV NAUSEA/VOMITING Last administered on 01/05/19 01:03; Admin Dose 4 MG; Start 12/31/18 at 18:30 Acetaminophen (Tylenol Tab) 650 mg Q6H PRN PO .PAIN 1-3 OR TEMP Last administered on 01/03/19 11:17; Admin Dose 650 MG; Start 12/31/18 at 18:30 Acetaminophen/ Hydrocodone Bitart ([place] (5/325)) 1 tab Q6H PRN PO .MOD PAIN 4- 6 Last administered on 01/04/19 04:15; Admin Dose 1 TAB; Start 12/31/18 at 18:30 Morphine Sulfate (morphine) 2 mg Q4H PRN IV .SEVERE PAIN 7-10 Last administered on 01/05/19 08:48; Admin Dose 2 MG; Start 12/31/18 at 18:30 Docusate Sodium (Colace) 100 mg Q12H PRN PO .CONSTIPATION; Start 12/31/18 at 18:30 Magnesium Hydroxide (Milk Of Mag) 30 ml DAILY PRN PO .CONSTIPATION; Start 12/31/18 at 18:30 Lorazepam (Ativan) 0.5 mg Q6H PRN IV ANXIETY Last administered on 01/02/19 12:32; Admin Dose 0.5 MG; Start 12/31/18 at 18:30 Albuterol/ Ipratropium (Duoneb) 3 ml Q4H RESP THERAPY PRN HHN SHORTNESS OF BREATH Last administered on 01/03/19 14:14; Admin Dose 3 ML; Start 12/31/18 at 18:30 Hydralazine HCl (Apresoline) 10 mg Q6H PRN IV ELEVATED BLOOD PRESSURE; Start 12/31/18 at 18:30 Nitroglycerin (Nitroglycerin (Sl Tab) 0.4 Mg) 1 tab Q5M PRN SL ANGINA; Start 12/31/18 at 18:30 Guaifenesin (Robitussin Liquid Cup) 200 mg Q4H PRN PO COUGH Last administered on 01/05/19 08:47; Admin Dose 200 MG; Start 01/01/19 at 11:30 Sodium Chloride 1,000 ml @ 75 mls/hr [id number] IV Last administered on 01/05/19 08:48; Admin Dose 75 MLS/HR; Start 01/01/19 at 11:30 Ibuprofen (Motrin) 600 mg Q6H PRN PO MILD PAIN LEVEL 1-3 Last administered on 01/03/19 12:14; Admin Dose 600 MG; Start 01/01/19 at 17:30 Phenol (Cepastat Lozenge) 1 lozenge Q1H PRN MT COUGH Last administered on 01/05/19 08:47; Admin Dose 1 LOZENGE; Start 01/02/19 at 12:30 Famotidine (Pepcid) 20 mg DAILY PO Last administered on 01/05/19 08:43; Admin Dose 20 MG; Start 01/03/19 at 09:00 Cefepime HCl 50 ml @ 100 mls/hr Q12 IVPB Last administered on 01/05/19 08:43; Admin Dose 100 MLS/HR; Start 01/02/19 at 21:00 Azithromycin 250 ml @ 250 mls/hr Q24H IVPB Last administered on 01/04/19at 17:12; Admin Dose 250 MLS/HR; Start 01/02/19 at 17:00 ROWAN OVALLE Jan 05, 2019 11:21
--- NOTE | 2019-01-05 15:51 | CONS ---
Assessment/Plan Assessment/Plan Hospital Course (Demo Recall) Patient is awake, comfortable on nc, no fevers HIV serology negative. Microbiology: Blood cultures + GPR. Chest x-ray on admission revealed focal left lower lobe infiltrate. Mild right midlung atelectasis. Antimicrobials: Zithromax, Cefepime. Physical examination: Well-developed middle-aged man who is awake in no distress. Head atraumatic normocephalic sclera nonicteric vehicle mucosa dry neck is supple chest rise symmetrical breath sounds with scattered rhonchi. Heart: S1-S2. Abdomen soft bowel sounds present extremities without cyanosis. Assessment: 1. Sepsis present on admission 2. Community-acquired pneumonia 3. Hemoptysis, resolved 4. History of endocarditis 5. IV drug abuse 6. Coronary artery disease with a history of tricuspid valve replacement and permanent pacemaker placement 6. Bacteremia cw contaminant Plan: Clinically unchanged, stable, repeat blood cultures and sputum culture negative, continue abx, await for chest CT Consultation Date/Type/Reason Admit Date/Time Dec 31, 2018 at 18:14 Initial Consult Date Type of Consult id Date/Time of Note DATE: 01/05/19 TIME: 15:50 Exam/Review of Systems Exam Vitals Vital Signs Date Temp Pulse Resp B/P (MAP) Pulse Ox O2 O2 Flow FiO2 Time Delivery Rate 01/05/19 63 12:00 01/05/19 98.0 23 110/59 11:37 (76) 01/05/19 Nasal 4.0 07:38 Cannula 01/05/19 96 07:31 01/04/19 21 18:51 Intake and Output 01/04/19 01/04/19 01/05/19 1515:00 23:00 07:00 IntakeIntake Total 1700 ml 1200 ml OutputOutput Total 2200 ml 1400 ml BalanceBalance -500 ml -200 ml Results Result Diagram: 01/05/19 0557 01/05/19 0557 Results 24hrs Laboratory Tests Test 01/05/19 05:57 White Blood Count 15.5 H Red Blood Count 3.65 L Hemoglobin 9.7 L Hematocrit 30.3 L Mean Corpuscular Volume 83.0 Mean Corpuscular Hemoglobin 26.6 L Mean Corpuscular Hemoglobin Concent 32.0 Red Cell Distribution Width 14.8 H Platelet Count 210 # Mean Platelet Volume 9.8 Immature Granulocytes % 1.100 H Neutrophils % 75.7 Lymphocytes % 10.9 L Monocytes % 6.2 Eosinophils % 5.6 Basophils % 0.5 Nucleated Red Blood Cells % 0.0 Immature Granulocytes # 0.170 H Neutrophils # 11.8 H Lymphocytes # 1.7 Monocytes # 1.0 H Eosinophils # 0.9 H Basophils # 0.1 Nucleated Red Blood Cells # 0.0 Sodium Level 132 L Potassium Level 4.0 Chloride Level 99 Carbon Dioxide Level 23 Anion Gap 10 Blood Urea Nitrogen 9 Creatinine 0.82 Est Glomerular Filtrat Rate mL/min > 60 Glucose Level 104 Calcium Level 8.5 Medications Medication Current Medications IV Flush (NS 3 ml) 3 ml PER PROTOCOL IV ; Start 12/31/18 at 18:30 Ondansetron HCl (Zofran Inj) 4 mg Q6H PRN IV NAUSEA/VOMITING Last administered on 01/05/19 01:03; Admin Dose 4 MG; Start 12/31/18 at 18:30 Acetaminophen (Tylenol Tab) 650 mg Q6H PRN PO .PAIN 1-3 OR TEMP Last administered on 01/03/19 11:17; Admin Dose 650 MG; Start 12/31/18 at 18:30 Acetaminophen/ Hydrocodone Bitart ([place] (5/325)) 1 tab Q6H PRN PO .MOD PAIN 4- 6 Last administered on 01/04/19 04:15; Admin Dose 1 TAB; Start 12/31/18 at 18:30 Morphine Sulfate (morphine) 2 mg Q4H PRN IV .SEVERE PAIN 7-10 Last administered on 01/05/19 12:57; Admin Dose 2 MG; Start 12/31/18 at 18:30 Docusate Sodium (Colace) 100 mg Q12H PRN PO .CONSTIPATION; Start 12/31/18 at 18:30 Magnesium Hydroxide (Milk Of Mag) 30 ml DAILY PRN PO .CONSTIPATION; Start 12/31/18 at 18:30 Lorazepam (Ativan) 0.5 mg Q6H PRN IV ANXIETY Last administered on 01/02/19 12:32; Admin Dose 0.5 MG; Start 12/31/18 at 18:30 Albuterol/ Ipratropium (Duoneb) 3 ml Q4H RESP THERAPY PRN HHN SHORTNESS OF BREATH Last administered on 01/03/19 14:14; Admin Dose 3 ML; Start 12/31/18 at 18:30 Hydralazine HCl (Apresoline) 10 mg Q6H PRN IV ELEVATED BLOOD PRESSURE; Start 12/31/18 at 18:30 Nitroglycerin (Nitroglycerin (Sl Tab) 0.4 Mg) 1 tab Q5M PRN SL ANGINA; Start 12/31/18 at 18:30 Guaifenesin (Robitussin Liquid Cup) 200 mg Q4H PRN PO COUGH Last administered on 01/05/19 12:57; Admin Dose 200 MG; Start 01/01/19 at 11:30 Sodium Chloride 1,000 ml @ 75 mls/hr [id number] IV Last administered on 01/05/19 08:48; Admin Dose 75 MLS/HR; Start 01/01/19 at 11:30 Ibuprofen (Motrin) 600 mg Q6H PRN PO MILD PAIN LEVEL 1-3 Last administered on 01/03/19 12:14; Admin Dose 600 MG; Start 01/01/19 at 17:30 Phenol (Cepastat Lozenge) 1 lozenge Q1H PRN MT COUGH Last administered on 01/05/19 15:41; Admin Dose 1 LOZENGE; Start 01/02/19 at 12:30 Famotidine (Pepcid) 20 mg DAILY PO Last administered on 01/05/19 08:43; Admin Dose 20 MG; Start 01/03/19 at 09:00 Cefepime HCl 50 ml @ 100 mls/hr Q12 IVPB Last administered on 01/05/19 08:43; Admin Dose 100 MLS/HR; Start 01/02/19 at 21:00 Azithromycin 250 ml @ 250 mls/hr Q24H IVPB Last administered on 01/04/19 17:12; Admin Dose 250 MLS/HR; Start 01/02/19 at 17:00 HAYLEE ENGLE NP Jan 05, 2019 15:51
[2019-01-05] MEDS: AZITHROMYCIN 500MG/NS (PMX) 250 ML IVPB SCH (17:05)
[2019-01-06] VITALS (12 sets, daily range): BP systolic 114–134; BP diastolic 58–83; PULSE 90–117; RESP 18–21
[2019-01-06] MEDS ORDERED: VITAMIN A & D 5 GM OINT PACKET TOP ONE (01:12)
[2019-01-06] MEDS: GUAIFENESIN 20 MG/ML 5ML CUP PO PRN ×4 (01:30→22:33)
[2019-01-06] MEDS: morphine 2 MG INJ IV PRN ×4 (01:30→22:33)
[2019-01-06] MEDS: CEPASTAT LOZENGE MT PRN ×6 (01:30→22:33)
[2019-01-06] MEDS: SOD CHLORIDE 0.45% 1,000 ML IV SCH (01:32)
[2019-01-06] MEDS: FAMOTIDINE 20 MG TAB PO SCH (08:37)
[2019-01-06] MEDS: CEFEPIME 1GM/50 ML (PMX) 50 ML IVPB SCH ×2 (08:37→21:04)
--- NOTE | 2019-01-06 14:30 | CONS ---
Assessment/Plan Assessment/Plan Hospital Course (Demo Recall) No acute changes, patient is comfortable on nasal cannula, no fevers HIV serology negative. Microbiology: Blood cultures + GPR. Chest x-ray on admission revealed focal left lower lobe infiltrate. Mild right midlung atelectasis. Antimicrobials: Zithromax, Cefepime. Physical examination: Well-developed middle-aged man who is awake in no distress. Head atraumatic normocephalic sclera nonicteric vehicle mucosa dry neck is supple chest rise symmetrical breath sounds with scattered rhonchi. Heart: S1-S2. Abdomen soft bowel sounds present extremities without cyanosis. Assessment: 1. Sepsis present on admission 2. Community-acquired pneumonia 3. Hemoptysis, resolved 4. History of endocarditis 5. IV drug abuse 6. Coronary artery disease with a history of tricuspid valve replacement and permanent pacemaker placement 6. Bacteremia cw contaminant Plan: Clinically stable, repeat blood cultures and sputum culture negative, continue abx, await for chest CT results Consultation Date/Type/Reason Admit Date/Time Dec 31, 2018 at 18:14 Initial Consult Date Type of Consult id Date/Time of Note DATE: 01/06/19 TIME: 14:29 Exam/Review of Systems Exam Vitals Vital Signs Date Temp Pulse Resp B/P (MAP) Pulse Ox O2 O2 Flow FiO2 Time Delivery Rate 01/06/19 98.4 90 20 127/76 98 11:44 (93) 01/06/19 Nasal 3.5 08:47 Cannula 01/04/19 21 18:51 Intake and Output 01/05/19 01/05/19 01/06/19 1414:59 22:59 06:59 IntakeIntake Total 50 ml 1180 ml 2850 ml OutputOutput Total 2200 ml 1300 ml BalanceBalance 50 ml -1020 ml 1550 ml Results Result Diagram: 01/06/19 0550 01/06/19 0550 Results 24hrs Laboratory Tests Test 01/06/19 05:50 White Blood Count 13.7 H Red Blood Count 3.53 L Hemoglobin 9.4 L Hematocrit 29.1 L Mean Corpuscular Volume 82.4 Mean Corpuscular Hemoglobin 26.6 L Mean Corpuscular Hemoglobin Concent 32.3 Red Cell Distribution Width 15.0 H Platelet Count 240 Mean Platelet Volume 9.7 Immature Granulocytes % 1.500 H Neutrophils % 69.7 Lymphocytes % 13.7 L Monocytes % 6.4 Eosinophils % 8.1 H Basophils % 0.6 Nucleated Red Blood Cells % 0.0 Immature Granulocytes # 0.210 H Neutrophils # 9.5 H Lymphocytes # 1.9 Monocytes # 0.9 Eosinophils # 1.1 H Basophils # 0.1 Nucleated Red Blood Cells # 0.0 Sodium Level 132 L Potassium Level 4.0 Chloride Level 98 Carbon Dioxide Level 24 Anion Gap 10 Blood Urea Nitrogen 7 Creatinine 0.81 Est Glomerular Filtrat Rate mL/min > 60 Glucose Level 100 Calcium Level 8.3 L Medications Medication Current Medications IV Flush (NS 3 ml) 3 ml PER PROTOCOL IV ; Start 12/31/18 at 18:30 Ondansetron HCl (Zofran Inj) 4 mg Q6H PRN IV NAUSEA/VOMITING Last administered on 01/05/19 01:03; Admin Dose 4 MG; Start 12/31/18 at 18:30 Acetaminophen (Tylenol Tab) 650 mg Q6H PRN PO .PAIN 1-3 OR TEMP Last administered on 01/03/19 11:17; Admin Dose 650 MG; Start 12/31/18 at 18:30 Acetaminophen/ Hydrocodone Bitart ([place] (5/325)) 1 tab Q6H PRN PO .MOD PAIN 4- 6 Last administered on 01/04/19 04:15; Admin Dose 1 TAB; Start 12/31/18 at 18:30 Morphine Sulfate (morphine) 2 mg Q4H PRN IV .SEVERE PAIN 7-10 Last administered on 01/06/19 08:37; Admin Dose 2 MG; Start 12/31/18 at 18:30 Docusate Sodium (Colace) 100 mg Q12H PRN PO .CONSTIPATION; Start 12/31/18 at 18:30 Magnesium Hydroxide (Milk Of Mag) 30 ml DAILY PRN PO .CONSTIPATION; Start 12/31/18 at 18:30 Lorazepam (Ativan) 0.5 mg Q6H PRN IV ANXIETY Last administered on 01/02/19 12:32; Admin Dose 0.5 MG; Start 12/31/18 at 18:30 Albuterol/ Ipratropium (Duoneb) 3 ml Q4H RESP THERAPY PRN HHN SHORTNESS OF BREATH Last administered on 01/03/19 14:14; Admin Dose 3 ML; Start 12/31/18 at 18:30 Hydralazine HCl (Apresoline) 10 mg Q6H PRN IV ELEVATED BLOOD PRESSURE; Start 12/31/18 at 18:30 Nitroglycerin (Nitroglycerin (Sl Tab) 0.4 Mg) 1 tab Q5M PRN SL ANGINA; Start 12/31/18 at 18:30 Guaifenesin (Robitussin Liquid Cup) 200 mg Q4H PRN PO COUGH Last administered on 01/06/19 05:32; Admin Dose 200 MG; Start 01/01/19 at 11:30 Ibuprofen (Motrin) 600 mg Q6H PRN PO MILD PAIN LEVEL 1-3 Last administered on 01/03/19 12:14; Admin Dose 600 MG; Start 01/01/19 at 17:30 Phenol (Cepastat Lozenge) 1 lozenge Q1H PRN MT COUGH Last administered on 01/06/19 07:04; Admin Dose 1 LOZENGE; Start 01/02/19 at 12:30 Famotidine (Pepcid) 20 mg DAILY PO Last administered on 01/06/19 08:37; Admin Dose 20 MG; Start 01/03/19 at 09:00 Cefepime HCl 50 ml @ 100 mls/hr Q12 IVPB Last administered on 01/06/19 08:37; Admin Dose 100 MLS/HR; Start 01/02/19 at 21:00 Azithromycin 250 ml @ 250 mls/hr Q24H IVPB Last administered on 01/05/19 17:05; Admin Dose 250 MLS/HR; Start 01/02/19 at 17:00 HAYLEE ENGLE NP Jan 06, 2019 14:30
--- NOTE | 2019-01-06 17:32 | PN ---
Date/Time of Note Date/Time of Note DATE: 01/06/19 TIME: 17:30 Assessment/Plan VTE Prophylaxis Risk score (from Ns)>0 risk: 4 SCD applied (from [facility] [place]): Yes Pharmacological prophylaxis: NA/contraindicated Pharm contraindication: low risk/ambulating Lines/Catheters IV Catheter Type (from [facility]): Peripheral IV Urinary Cath still in place: No Assessment/Plan Assessment/Plan 28-year-old man coming in with productive cough, possible hemoptysis for last 7 to 10 days prior to admission, with signs of leukocytosis and pneumonia with a prior history of IV drug abuse, endocarditis, pacemaker and pulmonary embolism and tricuspid valve repair. 1. Cough and possible hemoptysis - secondary to the pneumonia-slowly improving now, less frequent fevers, and mild hemoptysis, still with elevated white blood cell count today -Continue broad spectrum antibiotics, low-dose IV fluids, Tylenol p.r.n. pain and fevers. - Follow up final culture results (prelim = December 31 - 2 out of 2 bottles positive gram-negative rods) and ID recommendations, - CT chest results -results still pending 2. 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 - counseled on cessation. Monitor for signs of withdrawal. -Ativan PRN 3. Prior history of endocarditis- The patient does not have any fevers right now. His blood pressure appears to be stable. Echocardiogram results reviewed on this admission-no apparent acute findings, however first set of blood culture from December 31 are 2 out of 2 bottles positive for gram-negative rods. - Continue to monitor for now. - Follow up final blood culture results 4. History of prior pacemaker. Continue to monitor patient on telemetry for now. 5. History of peptic ulcer disease - H2 sharona. Otherwise, no present issues. 6. History of tricuspid valve repair-again echocardiogram results reviewed - Continue to monitor patient on telemetry for now. Result Diagram: 01/06/19 0550 01/06/19 0550 Subjective 24 Hr Interval Summary Free Text/Dictation No acute overnight events. Still having R pleuritic chest pain and cough with blood-streaked sputum. Otherwise sleeping comfortably. Exam/Review of Systems Exam Vitals Vital Signs Date Temp Pulse Resp B/P (MAP) Pulse Ox O2 O2 Flow FiO2 Time Delivery Rate 01/06/19 93 16:14 01/06/19 98.3 19 132/81 96 15:25 (98) 01/06/19 Nasal 3.5 08:47 Cannula 01/04/19 21 18:51 Intake and Output 01/05/19 01/05/19 01/06/19 1414:59 22:59 06:59 IntakeIntake Total 50 ml 1180 ml 2850 ml OutputOutput Total 2200 ml 1300 ml BalanceBalance 50 ml -1020 ml 1550 ml Exam PHYSICAL EXAMINATION: GENERAL: lying in bed, no acute distress HEENT: Pupils are equal, round, react to light. Extraocular muscles are intact. NECK: Supple. No thyromegaly. LUNGS: Distant breath sounds bilaterally. CARDIOVASCULAR: S1, S2 heard. No rubs or gallops. ABDOMEN: Soft, nontender, nondistended. Normal bowel sounds. No rebound or guarding. MUSCULOSKELETAL: No lower extremity edema bilaterally. NEUROLOGIC: No focal deficits. Results Results 24hrs Laboratory Tests Test 01/06/19 05:50 White Blood Count 13.7 H Red Blood Count 3.53 L Hemoglobin 9.4 L Hematocrit 29.1 L Mean Corpuscular Volume 82.4 Mean Corpuscular Hemoglobin 26.6 L Mean Corpuscular Hemoglobin Concent 32.3 Red Cell Distribution Width 15.0 H Platelet Count 240 Mean Platelet Volume 9.7 Immature Granulocytes % 1.500 H Neutrophils % 69.7 Lymphocytes % 13.7 L Monocytes % 6.4 Eosinophils % 8.1 H Basophils % 0.6 Nucleated Red Blood Cells % 0.0 Immature Granulocytes # 0.210 H Neutrophils # 9.5 H Lymphocytes # 1.9 Monocytes # 0.9 Eosinophils # 1.1 H Basophils # 0.1 Nucleated Red Blood Cells # 0.0 Sodium Level 132 L Potassium Level 4.0 Chloride Level 98 Carbon Dioxide Level 24 Anion Gap 10 Blood Urea Nitrogen 7 Creatinine 0.81 Est Glomerular Filtrat Rate mL/min > 60 Glucose Level 100 Calcium Level 8.3 L Medications Medication Current Medications IV Flush (NS 3 ml) 3 ml PER PROTOCOL IV ; Start 12/31/18 at 18:30 Ondansetron HCl (Zofran Inj) 4 mg Q6H PRN IV NAUSEA/VOMITING Last administered on 01/05/19at 01:03; Admin Dose 4 MG; Start 12/31/18 at 18:30 Acetaminophen (Tylenol Tab) 650 mg Q6H PRN PO .PAIN 1-3 OR TEMP Last administered on 01/03/19 11:17; Admin Dose 650 MG; Start 12/31/18 at 18:30 Acetaminophen/ Hydrocodone Bitart ([place] (5/325)) 1 tab Q6H PRN PO .MOD PAIN 4- 6 Last administered on 01/04/19 04:15; Admin Dose 1 TAB; Start 12/31/18 at 18:30 Morphine Sulfate (morphine) 2 mg Q4H PRN IV .SEVERE PAIN 7-10 Last administered on 01/06/19 08:37; Admin Dose 2 MG; Start 12/31/18 at 18:30 Docusate Sodium (Colace) 100 mg Q12H PRN PO .CONSTIPATION; Start 12/31/18 at 18:30 Magnesium Hydroxide (Milk Of Mag) 30 ml DAILY PRN PO .CONSTIPATION; Start 12/31/18 at 18:30 Lorazepam (Ativan) 0.5 mg Q6H PRN IV ANXIETY Last administered on 01/02/19 12:32; Admin Dose 0.5 MG; Start 12/31/18 at 18:30 Albuterol/ Ipratropium (Duoneb) 3 ml Q4H RESP THERAPY PRN HHN SHORTNESS OF BREATH Last administered on 01/03/19 14:14; Admin Dose 3 ML; Start 12/31/18 at 18:30 Hydralazine HCl (Apresoline) 10 mg Q6H PRN IV ELEVATED BLOOD PRESSURE; Start 12/31/18 at 18:30 Nitroglycerin (Nitroglycerin (Sl Tab) 0.4 Mg) 1 tab Q5M PRN SL ANGINA; Start 12/31/18 at 18:30 Guaifenesin (Robitussin Liquid Cup) 200 mg Q4H PRN PO COUGH Last administered on 01/06/19 05:32; Admin Dose 200 MG; Start 01/01/19 at 11:30 Ibuprofen (Motrin) 600 mg Q6H PRN PO MILD PAIN LEVEL 1-3 Last administered on 01/03/19 12:14; Admin Dose 600 MG; Start 01/01/19 at 17:30 Phenol (Cepastat Lozenge) 1 lozenge Q1H PRN MT COUGH Last administered on 01/06/19 07:04; Admin Dose 1 LOZENGE; Start 01/02/19 at 12:30 Famotidine (Pepcid) 20 mg DAILY PO Last administered on 01/06/19 08:37; Admin Dose 20 MG; Start 01/03/19 at 09:00 Cefepime HCl 50 ml @ 100 mls/hr Q12 IVPB Last administered on 01/06/19 08:37; Admin Dose 100 MLS/HR; Start 01/02/19 at 21:00 Azithromycin 250 ml @ 250 mls/hr Q24H IVPB Last administered on 01/05/19 17:05; Admin Dose 250 MLS/HR; Start 01/02/19 at 17:00 ALEX CLARKE MD Jan 06, 2019 17:32
[2019-01-06] MEDS: AZITHROMYCIN 500MG/NS (PMX) 250 ML IVPB SCH (19:48)
[2019-01-07] VITALS (11 sets, daily range): BP systolic 107–149; BP diastolic 64–87; PULSE 83–117; RESP 18–20
[2019-01-07] MEDS: morphine 2 MG INJ IV PRN ×4 (04:27→22:27)
[2019-01-07] MEDS: CEPASTAT LOZENGE MT PRN ×4 (04:27→15:47)
[2019-01-07] MEDS: GUAIFENESIN 20 MG/ML 5ML CUP PO PRN ×3 (04:27→15:47)
[2019-01-07] MEDS: FAMOTIDINE 20 MG TAB PO SCH (08:16)
[2019-01-07] MEDS: CEFEPIME 1GM/50 ML (PMX) 50 ML IVPB SCH ×2 (08:16→20:20)
--- NOTE | 2019-01-07 12:52 | CONS ---
Assessment/Plan Assessment/Plan Hospital Course (Demo Recall) No acute changes, awake, commmfortable on nc no fevers HIV serology negative. Microbiology: Blood cultures + GPR. Chest x-ray on admission revealed focal left lower lobe infiltrate. Mild right midlung atelectasis. Antimicrobials: Zithromax, Cefepime. Physical examination: Well-developed middle-aged man who is awake in no distress. Head atraumatic normocephalic sclera nonicteric vehicle mucosa dry neck is supple chest rise symmetrical breath sounds with scattered rhonchi. Heart: S1-S2. Abdomen soft bowel sounds present extremities without cyanosis. Assessment: 1. Sepsis present on admission 2. Community-acquired pneumonia 3. Hemoptysis, resolved 4. History of endocarditis 5. IV drug abuse 6. Coronary artery disease with a history of tricuspid valve replacement and permanent pacemaker placement 6. Bacteremia cw contaminant Plan: Clinically doing better, change Zithromax to Levaquin, pending CT chest Consultation Date/Type/Reason Admit Date/Time Dec 31, 2018 at 18:14 Initial Consult Date Type of Consult id Date/Time of Note DATE: 01/07/19 TIME: 12:51 Exam/Review of Systems Exam Vitals Vital Signs Date Temp Pulse Resp B/P (MAP) Pulse Ox O2 O2 Flow FiO2 Time Delivery Rate 01/07/19 88 12:17 01/07/19 97.6 19 124/76 98 11:13 (92) 01/07/19 Nasal 3.0 08:30 Cannula 01/04/19 21 18:51 Intake and Output 01/06/19 01/06/19 01/07/19 1515:00 23:00 07:00 IntakeIntake Total 50 ml 1900 ml 2400 ml OutputOutput Total 375 ml 2000 ml 1900 ml BalanceBalance -325 ml -100 ml 500 ml Results Result Diagram: 01/07/19 0544 01/07/19 0544 Results 24hrs Laboratory Tests Test 01/07/19 05:44 White Blood Count 11.2 H Red Blood Count 3.50 L Hemoglobin 9.3 L Hematocrit 29.7 L Mean Corpuscular Volume 84.9 Mean Corpuscular Hemoglobin 26.6 L Mean Corpuscular Hemoglobin Concent 31.3 L Red Cell Distribution Width 14.9 H Platelet Count 249 Mean Platelet Volume 9.6 Immature Granulocytes % 2.200 H Neutrophils % 66.9 Lymphocytes % 15.3 Monocytes % 6.0 Eosinophils % 9.0 H Basophils % 0.6 Nucleated Red Blood Cells % 0.0 Immature Granulocytes # 0.250 H Neutrophils # 7.5 Lymphocytes # 1.7 Monocytes # 0.7 Eosinophils # 1.0 H Basophils # 0.1 Nucleated Red Blood Cells # 0.0 Sodium Level 132 L Potassium Level 3.9 Chloride Level 99 Carbon Dioxide Level 26 Anion Gap 7 Blood Urea Nitrogen 9 Creatinine 0.75 Est Glomerular Filtrat Rate mL/min > 60 Glucose Level 103 Calcium Level 8.3 L Medications Medication Current Medications IV Flush (NS 3 ml) 3 ml PER PROTOCOL IV ; Start 12/31/18 at 18:30 Ondansetron HCl (Zofran Inj) 4 mg Q6H PRN IV NAUSEA/VOMITING Last administered on 01/05/19 01:03; Admin Dose 4 MG; Start 12/31/18 at 18:30 Acetaminophen (Tylenol Tab) 650 mg Q6H PRN PO .PAIN 1-3 OR TEMP Last administered on 01/03/19 11:17; Admin Dose 650 MG; Start 12/31/18 at 18:30 Acetaminophen/ Hydrocodone Bitart ([place] (5/325)) 1 tab Q6H PRN PO .MOD PAIN 4- 6 Last administered on 01/04/19 04:15; Admin Dose 1 TAB; Start 12/31/18 at 18:30 Morphine Sulfate (morphine) 2 mg Q4H PRN IV .SEVERE PAIN 7-10 Last administered on 01/07/19 08:16; Admin Dose 2 MG; Start 12/31/18 at 18:30 Docusate Sodium (Colace) 100 mg Q12H PRN PO .CONSTIPATION; Start 12/31/18 at 18:30 Magnesium Hydroxide (Milk Of Mag) 30 ml DAILY PRN PO .CONSTIPATION; Start 12/31/18 at 18:30 Lorazepam (Ativan) 0.5 mg Q6H PRN IV ANXIETY Last administered on 01/02/19 12:32; Admin Dose 0.5 MG; Start 12/31/18 at 18:30 Albuterol/ Ipratropium (Duoneb) 3 ml Q4H RESP THERAPY PRN HHN SHORTNESS OF BREATH Last administered on 01/03/19 14:14; Admin Dose 3 ML; Start 12/31/18 at 18:30 Hydralazine HCl (Apresoline) 10 mg Q6H PRN IV ELEVATED BLOOD PRESSURE; Start 12/31/18 at 18:30 Nitroglycerin (Nitroglycerin (Sl Tab) 0.4 Mg) 1 tab Q5M PRN SL ANGINA; Start 12/31/18 at 18:30 Guaifenesin (Robitussin Liquid Cup) 200 mg Q4H PRN PO COUGH Last administered on 01/07/19 04:27; Admin Dose 200 MG; Start 01/01/19 at 11:30 Ibuprofen (Motrin) 600 mg Q6H PRN PO MILD PAIN LEVEL 1-3 Last administered on 01/03/19 12:14; Admin Dose 600 MG; Start 01/01/19 at 17:30 Phenol (Cepastat Lozenge) 1 lozenge Q1H PRN MT COUGH Last administered on 01/07/19 08:16; Admin Dose 1 LOZENGE; Start 01/02/19 at 12:30 Famotidine (Pepcid) 20 mg DAILY PO Last administered on 01/07/19 08:16; Admin Dose 20 MG; Start 01/03/19 at 09:00 Cefepime HCl 50 ml @ 100 mls/hr Q12 IVPB Last administered on 01/07/19 08:16; Admin Dose 100 MLS/HR; Start 01/02/19 at 21:00 Azithromycin 250 ml @ 250 mls/hr Q24H IVPB Last administered on 01/06/19 19:48; Admin Dose 250 MLS/HR; Start 01/02/19 at 17:00 HAYLEE ENGLE NP Jan 07, 2019 12:52
[2019-01-07] MEDS ORDERED: IOHEXOL 350MG/ML 50 ML BTL ONE (14:17)
[2019-01-07] MEDS ORDERED: IOHEXOL 100 ML ONE (14:17)
[2019-01-07] MEDS ORDERED: SOD CHLORIDE 0.9% 100 ML ONE (14:17)
--- NOTE | 2019-01-07 16:00 | PN ---
Date/Time of Note Date/Time of Note DATE: 01/07/19 TIME: 15:56 Assessment/Plan VTE Prophylaxis [place] [facility] [place]: 3 [place]CD applied [place] [facility] [place] Yes Pharmacological prophylaxis: NA/contraindicated Pharm contraindication: low risk/ambulating Lines/Catheters [facility]from [facility] [place] Urinary Cath still in place: No Assessment/Plan Assessment/Plan 28-year-old man coming in with productive cough, possible hemoptysis for last 7 to 10 days prior to admission, with signs of leukocytosis and pneumonia with a prior history of IV drug abuse, endocarditis, pacemaker and pulmonary embolism and tricuspid valve repair. # Cough and hemoptysis - secondary to the pneumonia - Continues to have hemoptysis -Continue broad spectrum antibiotics, low-dose IV fluids, Tylenol p.r.n. pain and fevers. - CT chest is actually without focal infiltrates # Bacteremia - Blood cultures growing 2/2 bottles corynebacteria - No clear source for infection .... will pursue MADINA. - Dr. Mustafa consulted. 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 - counseled on cessation. Monitor for signs of withdrawal. -Ativan PRN # History of prior pacemaker. Continue to monitor patient on telemetry for now. # History of peptic ulcer disease - H2 sharona. Otherwise, no present issues. # History of tricuspid valve repair-again echocardiogram results reviewed - Continue to monitor patient on telemetry for now. Result Diagram: 01/07/19 0544 01/07/19 0544 Subjective 24 Hr Interval Summary Free Text/Dictation No acute overnight events. Continues to have cough with blood-streaked sputum Exam/Review of Systems Exam Vitals Vital Signs Date Temp Pulse Resp B/P (MAP) Pulse Ox O2 O2 Flow FiO2 Time Delivery Rate 01/07/19 97.6 106 19 149/64 91 15:35 (92) 01/07/19 Nasal 3.0 08:30 Cannula 01/04/19 21 18:51 Intake and Output 01/06/19 01/06/19 01/07/19 1515:00 23:00 07:00 IntakeIntake Total 50 ml 1900 ml 2400 ml OutputOutput Total 375 ml 2000 ml 1900 ml BalanceBalance -325 ml -100 ml 500 ml Exam GENERAL: lying in bed, no acute distress HEENT: Pupils are equal, round, react to light. Extraocular muscles are intact. NECK: Supple. No thyromegaly. LUNGS: Distant breath sounds bilaterally. CARDIOVASCULAR: S1, S2 heard. No rubs or gallops. ABDOMEN: Soft, nontender, nondistended. Normal bowel sounds. No rebound or guarding. MUSCULOSKELETAL: No lower extremity edema bilaterally. NEUROLOGIC: No focal deficits. Results Results 24hrs Laboratory Tests Test 01/07/19 05:44 White Blood Count 11.2 H Red Blood Count 3.50 L Hemoglobin 9.3 L Hematocrit 29.7 L Mean Corpuscular Volume 84.9 Mean Corpuscular Hemoglobin 26.6 L Mean Corpuscular Hemoglobin Concent 31.3 L Red Cell Distribution Width 14.9 H Platelet Count 249 Mean Platelet Volume 9.6 Immature Granulocytes % 2.200 H Neutrophils % 66.9 Lymphocytes % 15.3 Monocytes % 6.0 Eosinophils % 9.0 H Basophils % 0.6 Nucleated Red Blood Cells % 0.0 Immature Granulocytes # 0.250 H Neutrophils # 7.5 Lymphocytes # 1.7 Monocytes # 0.7 Eosinophils # 1.0 H Basophils # 0.1 Nucleated Red Blood Cells # 0.0 Sodium Level 132 L Potassium Level 3.9 Chloride Level 99 Carbon Dioxide Level 26 Anion Gap 7 Blood Urea Nitrogen 9 Creatinine 0.75 Est Glomerular Filtrat Rate mL/min > 60 Glucose Level 103 Calcium Level 8.3 L Medications Medication Current Medications IV Flush (NS 3 ml) 3 ml PER PROTOCOL IV ; Start 12/31/18 at 18:30 Ondansetron HCl (Zofran Inj) 4 mg Q6H PRN IV NAUSEA/VOMITING Last administered on 01/05/19 01:03; Admin Dose 4 MG; Start 12/31/18 at 18:30 Acetaminophen (Tylenol Tab) 650 mg Q6H PRN PO .PAIN 1-3 OR TEMP Last administered on 01/03/19 11:17; Admin Dose 650 MG; Start 12/31/18 at 18:30 Acetaminophen/ Hydrocodone Bitart ([place] (5/325)) 1 tab Q6H PRN PO .MOD PAIN 4- 6 Last administered on 01/04/19 04:15; Admin Dose 1 TAB; Start 12/31/18 at 18:30 Morphine Sulfate (morphine) 2 mg Q4H PRN IV .SEVERE PAIN 7-10 Last administered on 01/07/19 15:48; Admin Dose 2 MG; Start 12/31/18 at 18:30 Docusate Sodium (Colace) 100 mg Q12H PRN PO .CONSTIPATION; Start 12/31/18 at 18:30 Magnesium Hydroxide (Milk Of Mag) 30 ml DAILY PRN PO .CONSTIPATION; Start 12/31/18 at 18:30 Lorazepam (Ativan) 0.5 mg Q6H PRN IV ANXIETY Last administered on 01/02/19 12:32; Admin Dose 0.5 MG; Start 12/31/18 at 18:30 Albuterol/ Ipratropium (Duoneb) 3 ml Q4H RESP THERAPY PRN HHN SHORTNESS OF BREATH Last administered on 01/03/19 14:14; Admin Dose 3 ML; Start 12/31/18 at 18:30 Hydralazine HCl (Apresoline) 10 mg Q6H PRN IV ELEVATED BLOOD PRESSURE; Start 12/31/18 at 18:30 Nitroglycerin (Nitroglycerin (Sl Tab) 0.4 Mg) 1 tab Q5M PRN SL ANGINA; Start 12/31/18 at 18:30 Guaifenesin (Robitussin Liquid Cup) 200 mg Q4H PRN PO COUGH Last administered on 01/07/19 15:47; Admin Dose 200 MG; Start 01/01/19 at 11:30 Ibuprofen (Motrin) 600 mg Q6H PRN PO MILD PAIN LEVEL 1-3 Last administered on 01/03/19 12:14; Admin Dose 600 MG; Start 01/01/19 at 17:30 Phenol (Cepastat Lozenge) 1 lozenge Q1H PRN MT COUGH Last administered on 01/07/19 15:47; Admin Dose 1 LOZENGE; Start 01/02/19 at 12:30 Famotidine (Pepcid) 20 mg DAILY PO Last administered on 01/07/19 08:16; Admin Dose 20 MG; Start 01/03/19 at 09:00 Cefepime HCl 50 ml @ 100 mls/hr Q12 IVPB Last administered on 01/07/19 08:16; Admin Dose 100 MLS/HR; Start 01/02/19 at 21:00 Levofloxacin (Levaquin) 750 mg DAILY@06 PO ; Start 01/08/19 at 06:00 ALEX CLARKE MD Jan 07, 2019 16:00
[2019-01-08] VITALS (11 sets, daily range): BP systolic 113–134; BP diastolic 69–84; PULSE 88–102; RESP 18–20
[2019-01-08] MEDS: LEVOFLOXACIN 750 MG TABLET PO SCH (05:41)
[2019-01-08] MEDS: GUAIFENESIN 20 MG/ML 5ML CUP PO PRN ×3 (07:03→20:19)
[2019-01-08] MEDS: morphine LIQ (10 MG/5 ML) CUP PO PRN ×3 (07:04→20:20)
[2019-01-08] MEDS: CEFEPIME 1GM/50 ML (PMX) 50 ML IVPB SCH ×2 (08:10→20:19)
[2019-01-08] MEDS: FAMOTIDINE 20 MG TAB PO SCH (08:12)
[2019-01-08] MEDS ORDERED: ETOMIDATE 20 MG INJ ONE (12:19)
[2019-01-08] MEDS ORDERED: LIDOCAINE 2% (SDV) 5 ML INJ ONE (12:19)
--- NOTE | 2019-01-08 12:54 | SIPON ---
Date/Time of Note Date/Time of Note DATE: 01/08/19 TIME: 12:52 Operative Report Preoperative Diagnosis 1.bacteremia Postoperative Diagnosis 1.thickened Tricuspid valve s/p TVR 2.PPM leads with some thickening near leads cannot rule out associated vegetations Operation/Procedure Performed 1.MADINA Surgeon see signature line operational assistant 1.Veena Anesthesia: MAC Estimated blood loss: none Transfusion Required none Specimen none Grafts/Implants none Complications none ALEX TRAN Jan 08, 2019 12:54
[2019-01-08] MEDS ORDERED: IPRATROPIUM (NEB) 0.5 MG/2.5 ML AMP HHN ONE (13:07)
--- NOTE | 2019-01-08 13:17 | CONS ---
Assessment/Plan Assessment/Plan Hospital Course (Demo Recall) No acute changes, patient is off the floor for procedure, no fevers overnight HIV serology negative. Microbiology: Blood cultures + Corynebacterium species, repeat blood cultures negative Chest x-ray on admission revealed focal left lower lobe infiltrate. Mild right midlung atelectasis. Antimicrobials: Levaquin, Cefepime. Assessment: 1. Sepsis present on admission, resolving 2. Community-acquired pneumonia 3. Hemoptysis, resolved 4. History of endocarditis 5. IV drug abuse 6. Coronary artery disease with a history of tricuspid valve replacement and permanent pacemaker placement 6. Bacteremia cw contaminant Plan: CT chest noted, patient had MADINA this morning, official report pending, he is clinically improving Discussed with Dr. Mustafa Consultation Date/Type/Reason Admit Date/Time Dec 31, 2018 at 18:14 Initial Consult Date Type of Consult id Date/Time of Note DATE: 01/08/19 TIME: 13:16 Exam/Review of Systems Exam Vitals Vital Signs Date Temp Pulse Resp B/P (MAP) Pulse Ox O2 O2 Flow FiO2 Time Delivery Rate 01/08/19 97 12:38 01/08/19 97.9 19 116/78 98 11:48 (91) 01/08/19 Nasal 3.0 07:35 Cannula 01/04/19 21 18:51 Intake and Output 01/07/19 01/07/19 01/08/19 1515:00 23:00 07:00 IntakeIntake Total 50 ml 2200 ml 2450 ml OutputOutput Total 2000 ml 3600 ml BalanceBalance 50 ml 200 ml -1150 ml Results Result Diagram: 01/08/19 0616 01/08/19 0616 Results 24hrs Laboratory Tests Test 01/07/19 20:30 01/08/19 06:16 Urine Random Creatinine 25.00 Urine Random Sodium 20 L Urine Random Urea Nitrogen 139 White Blood Count 10.9 H Red Blood Count 3.55 L Hemoglobin 9.3 L Hematocrit 29.2 L Mean Corpuscular Volume 82.3 Mean Corpuscular Hemoglobin 26.2 L Mean Corpuscular Hemoglobin Concent 31.8 L Red Cell Distribution Width 15.1 H Platelet Count 272 Mean Platelet Volume 9.3 Immature Granulocytes % 1.900 H Neutrophils % 68.7 Lymphocytes % 14.0 L Monocytes % 6.1 Eosinophils % 8.7 H Basophils % 0.6 Nucleated Red Blood Cells % 0.0 Immature Granulocytes # 0.210 H Neutrophils # 7.5 Lymphocytes # 1.5 Monocytes # 0.7 Eosinophils # 0.9 H Basophils # 0.1 Nucleated Red Blood Cells # 0.0 Sodium Level 137 Potassium Level 4.0 Chloride Level 104 Carbon Dioxide Level 25 Anion Gap 8 Blood Urea Nitrogen 9 Creatinine 0.68 Est Glomerular Filtrat Rate mL/min > 60 Glucose Level 103 Calcium Level 8.4 Medications Medication Current Medications IV Flush (NS 3 ml) 3 ml PER PROTOCOL IV ; Start 12/31/18 at 18:30 Ondansetron HCl (Zofran Inj) 4 mg Q6H PRN IV NAUSEA/VOMITING Last administered on 01/05/19 01:03; Admin Dose 4 MG; Start 12/31/18 at 18:30 Acetaminophen (Tylenol Tab) 650 mg Q6H PRN PO .PAIN 1-3 OR TEMP Last administered on 01/03/19 11:17; Admin Dose 650 MG; Start 12/31/18 at 18:30 Acetaminophen/ Hydrocodone Bitart ([place] (5/325)) 1 tab Q6H PRN PO .MOD PAIN 4- 6 Last administered on 01/04/19 04:15; Admin Dose 1 TAB; Start 12/31/18 at 18:30 Docusate Sodium (Colace) 100 mg Q12H PRN PO .CONSTIPATION; Start 12/31/18 at 18:30 Magnesium Hydroxide (Milk Of Mag) 30 ml DAILY PRN PO .CONSTIPATION; Start 12/31/18 at 18:30 Lorazepam (Ativan) 0.5 mg Q6H PRN IV ANXIETY Last administered on 01/02/19 12:32; Admin Dose 0.5 MG; Start 12/31/18 at 18:30 Albuterol/ Ipratropium (Duoneb) 3 ml Q4H RESP THERAPY PRN HHN SHORTNESS OF BREATH Last administered on 01/03/19 14:14; Admin Dose 3 ML; Start 12/31/18 at 18:30 Hydralazine HCl (Apresoline) 10 mg Q6H PRN IV ELEVATED BLOOD PRESSURE; Start 12/31/18 at 18:30 Nitroglycerin (Nitroglycerin (Sl Tab) 0.4 Mg) 1 tab Q5M PRN SL ANGINA; Start 12/31/18 at 18:30 Guaifenesin (Robitussin Liquid Cup) 200 mg Q4H PRN PO COUGH Last administered on 01/08/19at 07:03; Admin Dose 200 MG; Start 01/01/19 at 11:30 Ibuprofen (Motrin) 600 mg Q6H PRN PO MILD PAIN LEVEL 1-3 Last administered on 01/03/19at 12:14; Admin Dose 600 MG; Start 01/01/19 at 17:30 Phenol (Cepastat Lozenge) 1 lozenge Q1H PRN MT COUGH Last administered on 01/07/19at 15:47; Admin Dose 1 LOZENGE; Start 01/02/19 at 12:30 Famotidine (Pepcid) 20 mg DAILY PO Last administered on 01/08/19at 08:12; Admin Dose 20 MG; Start 01/03/19 at 09:00 Cefepime HCl 50 ml @ 100 mls/hr Q12 IVPB Last administered on 01/08/19at 08:10; Admin Dose 100 MLS/HR; Start 01/02/19 at 21:00 Levofloxacin (Levaquin) 750 mg DAILY@06 PO Last administered on 01/08/19at 05:41; Admin Dose 750 MG; Start 01/08/19 at 06:00 Morphine Sulfate (morphine) 6 mg Q4H PRN PO SEVERE PAIN LEVEL 7-10 Last administered on 01/08/19at 07:04; Admin Dose 6 MG; Start 01/07/19 at 23:30 Levalbuterol (Xopenex Neb) 0.63 mg Q6H RESP THERAPY PRN HHN COUGH; Start 01/08/19 at 13:05 HAYLEE ENGLE NP Jan 08, 2019 13:17
[2019-01-08] MEDS: LEVALBUTEROL (NEB) 0.63 MG/3 ML AMP HHN PRN (13:18)
--- NOTE | 2019-01-08 14:52 | CONS ---
DATE OF ADMISSION: 12/31/2018 DATE OF CONSULTATION: 01/08/2019 TYPE OF CONSULTATION: Cardiology. REASON FOR CONSULTATION: Bacteremia, assess for intracardiac source. REQUESTING PHYSICIAN: Alex Raines MD HISTORY OF PRESENT ILLNESS: Mr. Neal is a 28-year-old male with history of permanent pacemaker, prior endocarditis status post tricuspid valve repair, pulmonary embolism, peptic ulcer disease, ongo ing IV drug abuse, who had a prior hospitalization for bacteremia and endocarditis and represented on 12/31/2018 with cough and hemoptysis. The patient was subsequently admitted and had blood cultures drawn, initially returning positive for Corynebacterium on 12/31/2018. Blood culture on 01/01/2019 r emained negative to date. The patient has been treated with broad-spectrum antibiotics. The patient underwent a chest CT/CTA revealed no evidence of pulmonary embolism or aortic dissection. The patie nt underwent a transthoracic echo revealing patient is status post tricuspid valve replacement with n o evidence of obvious vegetation. Transesophageal echo has been requested to further assess for poss ible intracardiac source of infection. PAST MEDICAL HISTORY: As above in HPI. MEDICATIONS CURRENTLY IN HOSPITAL: 1. Levofloxacin. 2. Pepcid. 3. Cefepime. 4. Zofran. 5. Tylenol. 6. [place]. 7. Colace. 8. Milk of [place]. 9. Ativan. 10. DuoNeb. 11. Hydralazine. 12. ALLERGIES: NO KNOWN DRUG ALLERGIES. SOCIAL HISTORY: Positive illicit drug use, positive EtOH abuse, positive tobacco usage. FAMILY HISTORY: No history of sudden cardiac or early CAD. REVIEW OF SYSTEMS: As above in HPI. CONSTITUTIONAL: Intermittent fevers. PULMONARY: No current shortness of breath or hemoptysis. CARDIOVASCULAR: No current chest pain. GASTROINTESTINAL: No vomiting. GENITOURINARY: No hematuria. MUSCULOSKELETAL: No significant myalgias or arthralgias. ENDOCRINE: No documented history of diabetes mellitus. HEMATOLOGIC: Anemia. PHYSICAL EXAMINATION: VITAL SIGNS: Temperature of 97.9, blood pressure 169/78, pulse 100, respiratory rate 19, saturating 99%. GENERAL: The patient is alert, awake, in no acute distress. NECK: JVP is approximately 8 to 9 cm of water. CHEST: Fair air movement throughout. HEART: Regular rate and rhythm. Normal S1, S2, I/ systolic murmur, nondisplaced PMI. ABDOMEN: Positive bowel sounds, soft. EXTREMITIES: No edema, 1+ pulses bilateral posterior tibial. LABORATORIES: As above in HPI, with most recent from today, sodium 137, potassium 4.0, creatinine 0. 6, BUN of 9. White blood cell count 10.9, hemoglobin 9.3, platelet count 272. IMAGING STUDIES: As above in HPI. No further imaging studies for my review at this time. ELECTROCARDIOGRAM: As above in HPI. IMPRESSION: 1. Bacteremia, assess for intracardiac source of infection, rule out endocarditis. 2. History of permanent pacemaker. 3. History of tricuspid valve repair. 4. History of IV drug abuse with ongoing drug usage and toxicology positive for amphetamines and can nabinoids. 5. History of peptic ulcer disease. 6. Cough and hemoptysis. RECOMMENDATIONS: 1. At this time, we would continue the patient's antibiotic. Continue to follow up all culture data with ongoing ID follow up. 2. The patient will undergo a transesophageal echo to further evaluate for the possibility of intrac ardiac source of infection. Dictated By: ALEX DOYLE/SINAI Conf#: [id number] DID#: [id number] CC: ROWAN OVALLE; ALEX RAINES MD;*[facility]*
--- NOTE | 2019-01-08 17:18 | PN ---
Date/Time of Note Date/Time of Note DATE: 01/08/19 TIME: 17:16 Assessment/Plan VTE Prophylaxis Risk score (from Ns)>0 risk: 2 [place]CD applied [place] [facility] [place] Yes Pharmacological prophylaxis: NA/contraindicated Pharm contraindication: low risk/ambulating Lines/Catheters IV C[facility]ter Type (from [facility] [place] Urinary Cath still in place: No Assessment/Plan Assessment/Plan 28-year-old man coming in with productive cough, possible hemoptysis for last 7 to 10 days prior to admission, with signs of leukocytosis and pneumonia with a prior history of IV drug abuse, endocarditis, pacemaker and pulmonary embolism and tricuspid valve repair. # Cough and hemoptysis - Likely secondary to the pneumonia - Continues to have hemoptysis -Continue broad spectrum antibiotics, low-dose IV fluids, Tylenol p.r.n. pain and fevers. - CT chest is actually without focal infiltrates # Bacteremia - Blood cultures growing 2/2 bottles corynebacteria - MADINA indetermine for vegetations on tricuspid valve. - Will defer antibiotics course and duration to ID. - Patient is homeless, so any course of IV antibiotics will need to be completed in hospital. 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 - counseled on cessation. Monitor for signs of withdrawal. # History of prior pacemaker. Continue to monitor patient on telemetry for now. # History of peptic ulcer disease - H2 sharona. Otherwise, no present issues. # History of tricuspid valve repair-again echocardiogram results reviewed - Continue to monitor patient on telemetry for now. Result Diagram: 01/08/19 0616 01/08/19 0616 Subjective 24 Hr Interval Summary Free Text/Dictation No acute overnight events. Patient reports feeling improved today. Cough is resolving. Exam/Review of Systems Exam Vitals Vital Signs Date Temp Pulse Resp B/P (MAP) Pulse Ox O2 O2 Flow FiO2 Time Delivery Rate 01/08/19 88 16:19 01/08/19 97.9 19 113/75 98 15:39 (88) 01/08/19 Simple 15.0 13:18 Mask 01/04/19 21 18:51 Intake and Output 01/07/19 01/07/19 01/08/19 1515:00 23:00 07:00 IntakeIntake Total 50 ml 2200 ml 2450 ml OutputOutput Total 2000 ml 3600 ml BalanceBalance 50 ml 200 ml -1150 ml Exam GENERAL: lying in bed, no acute distress HEENT: Pupils are equal, round, react to light. Extraocular muscles are intact. NECK: Supple. No thyromegaly. LUNGS: Distant breath sounds bilaterally. CARDIOVASCULAR: S1, S2 heard. No rubs or gallops. ABDOMEN: Soft, nontender, nondistended. Normal bowel sounds. No rebound or guarding. MUSCULOSKELETAL: No lower extremity edema bilaterally. NEUROLOGIC: No focal deficits. Results Results 24hrs Laboratory Tests Test 01/07/19 20:30 01/08/19 06:16 Urine Random Creatinine 25.00 Urine Random Sodium 20 L Urine Random Urea Nitrogen 139 White Blood Count 10.9 H Red Blood Count 3.55 L Hemoglobin 9.3 L Hematocrit 29.2 L Mean Corpuscular Volume 82.3 Mean Corpuscular Hemoglobin 26.2 L Mean Corpuscular Hemoglobin Concent 31.8 L Red Cell Distribution Width 15.1 H Platelet Count 272 Mean Platelet Volume 9.3 Immature Granulocytes % 1.900 H Neutrophils % 68.7 Lymphocytes % 14.0 L Monocytes % 6.1 Eosinophils % 8.7 H Basophils % 0.6 Nucleated Red Blood Cells % 0.0 Immature Granulocytes # 0.210 H Neutrophils # 7.5 Lymphocytes # 1.5 Monocytes # 0.7 Eosinophils # 0.9 H Basophils # 0.1 Nucleated Red Blood Cells # 0.0 Sodium Level 137 Potassium Level 4.0 Chloride Level 104 Carbon Dioxide Level 25 Anion Gap 8 Blood Urea Nitrogen 9 Creatinine 0.68 Est Glomerular Filtrat Rate mL/min > 60 Glucose Level 103 Calcium Level 8.4 Medications Medication Current Medications IV Flush (NS 3 ml) 3 ml PER PROTOCOL IV ; Start 12/31/18 at 18:30 Ondansetron HCl (Zofran Inj) 4 mg Q6H PRN IV NAUSEA/VOMITING Last administered on 01/05/19at 01:03; Admin Dose 4 MG; Start 12/31/18 at 18:30 Acetaminophen (Tylenol Tab) 650 mg Q6H PRN PO .PAIN 1-3 OR TEMP Last administered on 01/03/19at 11:17; Admin Dose 650 MG; Start 12/31/18 at 18:30 Acetaminophen/ Hydrocodone Bitart ([place] (5/325)) 1 tab Q6H PRN PO .MOD PAIN 4- 6 Last administered on 01/04/19 04:15; Admin Dose 1 TAB; Start 12/31/18 at 18:30 Docusate Sodium (Colace) 100 mg Q12H PRN PO .CONSTIPATION; Start 12/31/18 at 18:30 Magnesium Hydroxide (Milk Of Mag) 30 ml DAILY PRN PO .CONSTIPATION; Start 12/31/18 at 18:30 Lorazepam (Ativan) 0.5 mg Q6H PRN IV ANXIETY Last administered on 01/02/19 12:32; Admin Dose 0.5 MG; Start 12/31/18 at 18:30 Albuterol/ Ipratropium (Duoneb) 3 ml Q4H RESP THERAPY PRN HHN SHORTNESS OF BREATH Last administered on 01/03/19 14:14; Admin Dose 3 ML; Start 12/31/18 at 1 8:30 Hydralazine HCl (Apresoline) 10 mg Q6H PRN IV ELEVATED BLOOD PRESSURE; Start 12/31/18 at 18:30 Nitroglycerin (Nitroglycerin (Sl Tab) 0.4 Mg) 1 tab Q5M PRN SL ANGINA; Start 12/31/18 at 18:30 Guaifenesin (Robitussin Liquid Cup) 200 mg Q4H PRN PO COUGH Last administered on 01/08/19 13:56; Admin Dose 200 MG; Start 01/01/19 at 11:30 Ibuprofen (Motrin) 600 mg Q6H PRN PO MILD PAIN LEVEL 1-3 Last administered on 01/03/19 12:14; Admin Dose 600 MG; Start 01/01/19 at 17:30 Phenol (Cepastat Lozenge) 1 lozenge Q1H PRN MT COUGH Last administered on 01/07/19 15:47; Admin Dose 1 LOZENGE; Start 01/02/19 at 12:30 Famotidine (Pepcid) 20 mg DAILY PO Last administered on 01/08/19 08:12; Admin Dose 20 MG; Start 01/03/19 at 09:00 Cefepime HCl 50 ml @ 100 mls/hr Q12 IVPB Last administered on 01/08/19 08:10; Admin Dose 100 MLS/HR; Start 01/02/19 at 21:00 Levofloxacin (Levaquin) 750 mg DAILY@06 PO Last administered on 01/08/19 05:41; Admin Dose 750 MG; Start 01/08/19 at 06:00 Morphine Sulfate (morphine) 6 mg Q4H PRN PO SEVERE PAIN LEVEL 7-10 Last administered on 01/08/19 13:56; Admin Dose 6 MG; Start 01/07/19 at 23:30 Levalbuterol (Xopenex Neb) 0.63 mg Q6H RESP THERAPY PRN HHN COUGH Last admini stered on 01/08/19at 13:18; Admin Dose 0.63 MG; Start 01/08/19 at 13:05 ALEX CLARKE MD Jan 08, 2019 17:18
--- NOTE | 2019-01-08 18:08 | CARRPT ---
DATE OF PROCEDURE: 01/08/2019 TYPE OF PROCEDURE: Transesophageal echo. REASON FOR PROCEDURE: Bacteremia, assess for source of intracardiac infection. TYPE OF ANESTHESIA: MAC under direction of anesthesiologist at bedside. BRIEF HISTORY AND HOSPITAL COURSE: Mr. Neal is a 28-year-old male with history of prior endocard itis status post tricuspid valve repair, who has ongoing IV drug abuse presenting with bacteremia and fevers. The patient has undergone a transthoracic echo revealing a thickened tricuspid valve with o ngoing positive blood cultures and therefore has been referred for transesophageal echo to further as sess the possibility of endocarditis lending to bacteremia. DESCRIPTION OF PROCEDURE: After informed consent was obtained, the patient was brought to the [facility] cardiac catheterization lab where he was placed on continuous telemetry monito ring, continuous O2 saturation monitoring, blood pressure cuff cycling every 3 minutes. The patient had a bite block placed in his mouth and was given anesthesia under direction of anesthesiologist at bedside, MAC anesthesia with etomidate. The patient subsequently had the transesophageal probe intub ated into the esophagus and using a multiplanar imaging, the patient's intracardiac structures were a dequately interrogated and color flow Doppler additionally to further assess the patient's intracardi ac structures. The transesophageal probe was then used to further assess the patient's proximal desc ending, transverse and ascending aorta and subsequently removed and the patient was allowed to awake from his anesthetized state. This completed the procedure. FINDINGS: 1. Grossly normal left ventricular size and systolic function. 2. No definite findings of patent foramen ovale or other interatrial septal defect with color flow D oppler interrogation in interatrial septum only. 3. Normal-appearing aortic valve apparatus, no aortic regurgitation. 4. Normal-appearing mitral valve apparatus with trace to mild mitral regurgitation. 5. Tricuspid valve, status post repair with thickened leaflets and moderate to severe mitral regurgi tation. No definite vegetations, but I cannot completely rule out given the TR and thickening of bas denilson valve. 6. The patient's permanent pacemaker leads within the RA with mild increase hyperechoic structure wi thin them. I cannot completely rule out associated vegetations on these leads, although not typical. IMPRESSION: No definite findings of intracardiac source of infection, but I cannot completely rule o ut due to baseline thickened tricuspid valve apparatus and also prior endocarditis of that valve as w ell as a questionable mild increased hyperechoic opacities near the patient's pacemaker lead. RECOMMENDATIONS: 1. At this time, we would continue to assess for source of infection. 2. Continue the patient's antibiotics. 3. Continue to follow the patient's culture data and we will discuss findings with primary MD and tr eating infectious disease consultation. Dictated By: ALEX DOYLE/SINAI Conf#: [id number] DID#: [id number] CC: HAYLEE ENGLE NP; ALEX CLARKE MD; ROWAN OVALLE;*[facility]*
[2019-01-08] MEDS: CEPASTAT LOZENGE MT PRN (20:24)
[2019-01-09] VITALS (9 sets, daily range): BP systolic 100–141; BP diastolic 65–95; PULSE 78–115; RESP 18–24
[2019-01-09] MEDS: CEPASTAT LOZENGE MT PRN ×2 (05:29→09:06)
[2019-01-09] MEDS: LEVOFLOXACIN 750 MG TABLET PO SCH (05:29)
[2019-01-09] MEDS: morphine LIQ (10 MG/5 ML) CUP PO PRN ×3 (05:30→20:05)
[2019-01-09] MEDS: CEFEPIME 1GM/50 ML (PMX) 50 ML IVPB SCH (09:01)
[2019-01-09] MEDS: FAMOTIDINE 20 MG TAB PO SCH (09:03)
[2019-01-09] MEDS: HYDROCODONE/APAP (5/325) TAB PO PRN (09:06)
[2019-01-09] MEDS: LEVALBUTEROL (NEB) 0.63 MG/3 ML AMP HHN PRN (09:44)
--- NOTE | 2019-01-09 12:52 | CONS ---
Assessment/Plan Assessment/Plan Hospital Course (Demo Recall) Patient is awake looks comfortable denies pain no fevers overnight. WBC today 12.3 with H&H 9.1 and 28.2 platelets 256 neutrophils 74.9 BUN 8 creatinine 0.66 Microbiology: Blood culture on admission grew Corynebacterium species. Repeat blood cultures the next day negative sputum culture negative MRSA swab negative HIV serology negative. Chest x-ray on admission revealed focal left lower lobe infiltrate. Mild right midlung atelectasis. Antimicrobials: Levaquin, Cefepime. Assessment: 1. S/p s patient is clinically stable epsis present on admission, resolving 2. Community-acquired pneumonia 3. Hemoptysis, resolved 4. History of endocarditis 5. IV drug abuse 6. Coronary artery disease with a history of tricuspid valve replacement and permanent pacemaker placement 6. Bacteremia cw contaminant Plan: And overall improving, repeat blood cultures have been negative, no fev ers. There was no clinical suspicion for endocarditis since admission. Patient had MADINA done yesterday that revealed grossly normal left ventricular size with no definite vegetations, however there was a concern for poss vegetations on PM leads. Will keep him on IV Rocephin for 4 weeks Consultation Date/Type/Reason Admit Date/Time Dec 31, 2018 at 18:14 Initial Consult Date Type of Consult id Date/Time of Note DATE: 01/09/19 TIME: 12:42 Exam/Review of Systems Exam Vitals Vital Signs Date Temp Pulse Resp B/P (MAP) Pulse Ox O2 O2 Flow FiO2 Time Delivery Rate 01/09/19 89 12:40 01/09/19 98.7 24 107/65 95 Nasal 11:17 (79) Cannula 01/09/19 3.0 09:58 Intake and Output 01/08/19 01/08/19 01/09/19 1515:00 23:00 07:00 IntakeIntake Total 50 ml 1250 ml OutputOutput Total 2500 ml 1000 ml BalanceBalance 50 ml -2500 ml 250 ml Results Result Diagram: 01/09/19 0853 01/09/19 0853 Results 24hrs Laboratory Tests Test 01/09/19 08:53 White Blood Count 12.3 H Red Blood Count 3.45 L Hemoglobin 9.1 L Hematocrit 28.2 L Mean Corpuscular Volume 81.7 L Mean Corpuscular Hemoglobin 26.4 L Mean Corpuscular Hemoglobin Concent 32.3 Red Cell Distribution Width 15.4 H Platelet Count 256 Mean Platelet Volume 8.8 Immature Granulocytes % 1.700 H Neutrophils % 74.9 Lymphocytes % 12.4 L Monocytes % 5.3 Eosinophils % 5.2 Basophils % 0.5 Nucleated Red Blood Cells % 0.0 Immature Granulocytes # 0.210 H Neutrophils # 9.2 H Lymphocytes # 1.5 Monocytes # 0.7 Eosinophils # 0.6 H Basophils # 0.1 Nucleated Red Blood Cells # 0.0 Sodium Level 131 L Potassium Level 3.7 Chloride Level 99 Carbon Dioxide Level 25 Anion Gap 7 Blood Urea Nitrogen 8 Creatinine 0.66 Est Glomerular Filtrat Rate mL/min > 60 Glucose Level 99 Calcium Level 8.4 Phosphorus Level 3.8 Magnesium Level 1.5 L Medications Medication Current Medications IV Flush (NS 3 ml) 3 ml PER PROTOCOL IV ; Start 12/31/18 at 18:30 Ondansetron HCl (Zofran Inj) 4 mg Q6H PRN IV NAUSEA/VOMITING Last administered on 01/05/19 01:03; Admin Dose 4 MG; Start 12/31/18 at 18:30 Acetaminophen (Tylenol Tab) 650 mg Q6H PRN PO .PAIN 1-3 OR TEMP Last administered on 01/03/19 11:17; Admin Dose 650 MG; Start 12/31/18 at 18:30 Acetaminophen/ Hydrocodone Bitart ([place] (5/325)) 1 tab Q6H PRN PO .MOD PAIN 4- 6 Last administered on 01/09/19 09:06; Admin Dose 1 TAB; Start 12/31/18 at 18:30 Docusate Sodium (Colace) 100 mg Q12H PRN PO .CONSTIPATION; Start 12/31/18 at 18:30 Magnesium Hydroxide (Milk Of Mag) 30 ml DAILY PRN PO .CONSTIPATION; Start 12/31/18 at 18:30 Lorazepam (Ativan) 0.5 mg Q6H PRN IV ANXIETY Last administered on 01/02/19 12:32; Admin Dose 0.5 MG; Start 12/31/18 at 18:30 Albuterol/ Ipratropium (Duoneb) 3 ml Q4H RESP THERAPY PRN HHN SHORTNESS OF BREATH Last administered on 01/03/19 14:14; Admin Dose 3 ML; Start 12/31/18 at 18:30 Hydralazine HCl (Apresoline) 10 mg Q6H PRN IV ELEVATED BLOOD PRESSURE; Start 12/31/18 at 18:30 Nitroglycerin (Nitroglycerin (Sl Tab) 0.4 Mg) 1 tab Q5M PRN SL ANGINA; Start 12/31/18 at 18:30 Guaifenesin (Robitussin Liquid Cup) 200 mg Q4H PRN PO COUGH Last administered on 01/08/19 20:19; Admin Dose 200 MG; Start 01/01/19 at 11:30 Ibuprofen (Motrin) 600 mg Q6H PRN PO MILD PAIN LEVEL 1-3 Last administered on 01/03/19 12:14; Admin Dose 600 MG; Start 01/01/19 at 17:30 Phenol (Cepastat Lozenge) 1 lozenge Q1H PRN MT COUGH Last administered on 01/09/19 09:06; Admin Dose 1 LOZENGE; Start 01/02/19 at 12:30 Famotidine (Pepcid) 20 mg DAILY PO Last administered on 01/09/19 09:03; Admin Dose 20 MG; Start 01/03/19 at 09:00 Cefepime HCl 50 ml @ 100 mls/hr Q12 IVPB Last administered on 01/09/19 09:01; Admin Dose 100 MLS/HR; Start 01/02/19 at 21:00 Levofloxacin (Levaquin) 750 mg DAILY@06 PO Last administered on 01/09/19 05:29; Admin Dose 750 MG; Start 01/08/19 at 06:00 Morphine Sulfate (morphine) 6 mg Q4H PRN PO SEVERE PAIN LEVEL 7-10 Last administered on 01/09/19 11:02; Admin Dose 6 MG; Start 01/07/19 at 23:30 Levalbuterol (Xopenex Neb) 0.63 mg Q6H RESP THERAPY PRN HHN COUGH Last administered on 01/09/19 09:44; Admin Dose 0.63 MG; Start 01/08/19 at 13:05 HAYLEE ENGLE NP Jan 09, 2019 12:52
--- NOTE | 2019-01-09 13:28 | CONS ---
Assessment/Plan Assessment/Plan Hospital Course (Demo Recall) IMPRESSION: 1. Bacteremia, assess for intracardiac source of infection, rule out endocarditis.- s/p MADINA 01/08 with chronic prior changes of TVR and nonspecific findings associated with pacer leads. No definite findings of vegetations. bLD CX'S 01/01 ntd 2. History of permanent pacemaker. 3. History of tricuspid valve repair. 4. History of IV drug abuse with ongoing drug usage and toxicology positive for amphetamines and cannabinoids. 5. History of peptic ulcer disease. 6. Cough and hemoptysis. Recc: -tele -would f/u cx data as MADINA without definite findings of ongoing vegetations but with chronic changes and base further abx therapy upon the cx data -Contineu abx's and this time Consultation Date/Type/Reason Admit Date/Time Dec 31, 2018 at 18:14 Initial Consult Date 01/08/19 Type of Consult Cardiology Reason for Consultation bacteremia Requesting Provider: ALEX CLARKE MD Date/Time of Note DATE: 01/09/19 TIME: 13:23 Exam/Review of Systems Vital Signs Vitals Vital Signs Date Temp Pulse Resp B/P (MAP) Pulse Ox O2 O2 Flow FiO2 Time Delivery Rate 01/09/19 89 12:40 01/09/19 98.7 24 107/65 95 Nasal 11:17 (79) Cannula 01/09/19 3.0 09:58 Intake and Output 01/08/19 01/08/19 01/09/19 1414:59 22:59 06:59 IntakeIntake Total 50 ml 1250 ml OutputOutput Total 2500 ml 1000 ml BalanceBalance 50 ml -2500 ml 250 ml Exam Exam Review of Systems: CONSTITUTIONAL: No fevers, chills. PULMONARY: mild sore throat CARDIOVASCULAR: No chest pain/palpitations GASTROINTESTINAL: No nausea/vomiting. GENITOURINARY: No hematuria/dysuria. MUSCULOSKELETAL: No myagias/arthalgias. PSYCHIATRIC: The patient denies depression. NEUROLOGIC: No weakness Constitutional: alert, oriented Psych: no complaints Head: normocephalic ENMT: mucosa pink and moist Neck: supple, jvd (9 cm water) Respiratory: clear to auscultation Cardiovascular: regular rate and rhythm Gastrointestinal: soft, non-tender Musculoskeletal: muscle tone (normal) Extremities: edema (none) Neurological: other (No focal deficits) Labs Result Diagram: 01/09/19 0853 01/09/19 0853 Results 24hrs Laboratory Tests Test 01/09/19 08:53 White Blood Count 12.3 H Red Blood Count 3.45 L Hemoglobin 9.1 L Hematocrit 28.2 L Mean Corpuscular Volume 81.7 L Mean Corpuscular Hemoglobin 26.4 L Mean Corpuscular Hemoglobin Concent 32.3 Red Cell Distribution Width 15.4 H Platelet Count 256 Mean Platelet Volume 8.8 Immature Granulocytes % 1.700 H Neutrophils % 74.9 Lymphocytes % 12.4 L Monocytes % 5.3 Eosinophils % 5.2 Basophils % 0.5 Nucleated Red Blood Cells % 0.0 Immature Granulocytes # 0.210 H Neutrophils # 9.2 H Lymphocytes # 1.5 Monocytes # 0.7 Eosinophils # 0.6 H Basophils # 0.1 Nucleated Red Blood Cells # 0.0 Sodium Level 131 L Potassium Level 3.7 Chloride Level 99 Carbon Dioxide Level 25 Anion Gap 7 Blood Urea Nitrogen 8 Creatinine 0.66 Est Glomerular Filtrat Rate mL/min > 60 Glucose Level 99 Calcium Level 8.4 Phosphorus Level 3.8 Magnesium Level 1.5 L Medications Medications Current Medications IV Flush (NS 3 ml) 3 ml PER PROTOCOL IV ; Start 12/31/18 at 18:30 Ondansetron HCl (Zofran Inj) 4 mg Q6H PRN IV NAUSEA/VOMITING Last administered on 01/05/19at 01:03; Admin Dose 4 MG; Start 12/31/18 at 18:30 Acetaminophen (Tylenol Tab) 650 mg Q6H PRN PO .PAIN 1-3 OR TEMP Last administered on 01/03/19at 11:17; Admin Dose 650 MG; Start 12/31/18 at 18:30 Acetaminophen/ Hydrocodone Bitart ([place] (5/325)) 1 tab Q6H PRN PO .MOD PAIN 4- 6 Last administered on 01/09/19at 09:06; Admin Dose 1 TAB; Start 12/31/18 at 18:30 Docusate Sodium (Colace) 100 mg Q12H PRN PO .CONSTIPATION; Start 12/31/18 at 18:30 Magnesium Hydroxide (Milk Of Mag) 30 ml DAILY PRN PO .CONSTIPATION; Start 12/31/18 at 18:30 Lorazepam (Ativan) 0.5 mg Q6H PRN IV ANXIETY Last administered on 01/02/19 12:32; Admin Dose 0.5 MG; Start 12/31/18 at 18:30 Albuterol/ Ipratropium (Duoneb) 3 ml Q4H RESP THERAPY PRN HHN SHORTNESS OF BREATH Last administered on 01/03/19 14:14; Admin Dose 3 ML; Start 12/31/18 at 18:30 Hydralazine HCl (Apresoline) 10 mg Q6H PRN IV ELEVATED BLOOD PRESSURE; Start at 18:30 Nitroglycerin (Nitroglycerin (Sl Tab) 0.4 Mg) 1 tab Q5M PRN SL ANGINA; Start 12/31/18 at 18:30 Guaifenesin (Robitussin Liquid Cup) 200 mg Q4H PRN PO COUGH Last administered on 01/08/19 20:19; Admin Dose 200 MG; Start 01/01/19 at 11:30 Ibuprofen (Motrin) 600 mg Q6H PRN PO MILD PAIN LEVEL 1-3 Last administered on 01/03/19 12:14; Admin Dose 600 MG; Start 01/01/19 at 17:30 Phenol (Cepastat Lozenge) 1 lozenge Q1H PRN MT COUGH Last administered on 01/09/19 09:06; Admin Dose 1 LOZENGE; Start 01/02/19 at 12:30 Famotidine (Pepcid) 20 mg DAILY PO Last administered on 01/09/19 09:03; Admin Dose 20 MG; Start 01/03/19 at 09:00 Levofloxacin (Levaquin) 750 mg DAILY@06 PO Last administered on 01/09/19 05:29; Admin Dose 750 MG; Start 01/08/19 at 06:00 Morphine Sulfate (morphine) 6 mg Q4H PRN PO SEVERE PAIN LEVEL 7-10 Last administered on 01/09/19 11:02; Admin Dose 6 MG; Start 01/07/19 at 23:30 Levalbuterol (Xopenex Neb) 0.63 mg Q6H RESP THERAPY PRN HHN COUGH Last administered on 01/09/19 09:44; Admin Dose 0.63 MG; Start 01/08/19 at 13:05 Ceftriaxone Sodium 50 ml @ 100 mls/hr Q24H IVPB ; Start 01/09/19 at 13:00 ALEX TRAN Jan 09, 2019 13:28
[2019-01-09] MEDS: CEFTRIAXONE 1 GM/50 ML (PMX) 50 ML IVPB SCH (13:40)
--- NOTE | 2019-01-09 15:01 | PN ---
Date/Time of Note Date/Time of Note DATE: 01/09/19 TIME: 14:57 Assessment/Plan VTE Prophylaxis Risk score (from Ns)>0 risk: 2 SCD applied (from Ns): Yes Pharmacological prophylaxis: NA/contraindicated Pharm contraindication: low risk/ambulating Lines/Catheters [facility]from [facility] Saline Lock Urinary Cath still in place: No Assessment/Plan Assessment/Plan 28-year-old man coming in with productive cough, possible hemoptysis for last 7 to 10 days prior to admission, with signs of leukocytosis and pneumonia with a prior history of IV drug abuse, endocarditis, pacemaker and pulmonary embolism and tricuspid valve repair. # Cough and hemoptysis #Hypoxia - Likely secondary to the pneumonia - Continues to have hemoptysis -Continue broad spectrum antibiotics, low-dose IV fluids, Tylenol p.r.n. pain and fevers. - CT chest is actually without focal infiltrates # Bacteremia - Blood cultures growing 2/2 bottles corynebacteria - MADINA indeterminate for vegetations on tricuspid valve. - Plan for 4 weeks of ceftriaxone per ID recommendations. - Patient is homeless, so any course of IV antibiotics will likely need to be completed in hospital. 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 - counseled on cessation. # History of prior pacemaker. - Monitored for one week on tele. He does develop occasional V-paced tachycardia, asymptomatic - Transfer to med/surg # History of peptic ulcer disease - H2 sharona. Otherwise, no present issues. Dispo: Required 4 weeks IV ceftriaxone as empiric treatment for possible endocarditis. Result Diagram: 01/09/19 0853 01/09/19 0853 Subjective 24 Hr Interval Summary Free Text/Dictation No acute overnight events. The patient is noted to have V-paced tachycardia again yesterday but asymptomatic not causing palpitations. Today he reports throat pain and worsening cough that he attributes to MADINA. Also noted to be slightly more hypoxic today. Exam/Review of Systems Exam Vitals Vital Signs Date Temp Pulse Resp B/P (MAP) Pulse Ox O2 O2 Flow FiO2 Time Delivery Rate 01/09/19 89 12:40 01/09/19 98.7 24 107/65 95 Nasal 11:17 (79) Cannula 01/09/19 3.0 09:58 Intake and Output 01/08/19 01/08/1919 1414:59 22:59 06:59 IntakeIntake Total 50 ml 1250 ml OutputOutput Total 2500 ml 1000 ml BalanceBalance 50 ml -2500 ml 250 ml Exam GENERAL: lying in bed, no acute distress HEENT: Pupils are equal, round, react to light. Extraocular muscles are intact. NECK: Supple. No thyromegaly. LUNGS: Distant breath sounds bilaterally. Crackles in bilateral lung bases. CARDIOVASCULAR: S1, S2 heard. No rubs or gallops. ABDOMEN: Soft, nontender, nondistended. Normal bowel sounds. No rebound or guarding. MUSCULOSKELETAL: No lower extremity edema bilaterally. NEUROLOGIC: No focal deficits. Results Results 24hrs Laboratory Tests Test 01/09/19 08:53 White Blood Count 12.3 H Red Blood Count 3.45 L Hemoglobin 9.1 L Hematocrit 28.2 L Mean Corpuscular Volume 81.7 L Mean Corpuscular Hemoglobin 26.4 L Mean Corpuscular Hemoglobin Concent 32.3 Red Cell Distribution Width 15.4 H Platelet Count 256 Mean Platelet Volume 8.8 Immature Granulocytes % 1.700 H Neutrophils % 74.9 Lymphocytes % 12.4 L Monocytes % 5.3 Eosinophils % 5.2 Basophils % 0.5 Nucleated Red Blood Cells % 0.0 Immature Granulocytes # 0.210 H Neutrophils # 9.2 H Lymphocytes # 1.5 Monocytes # 0.7 Eosinophils # 0.6 H Basophils # 0.1 Nucleated Red Blood Cells # 0.0 Sodium Level 131 L Potassium Level 3.7 Chloride Level 99 Carbon Dioxide Level 25 Anion Gap 7 Blood Urea Nitrogen 8 Creatinine 0.66 Est Glomerular Filtrat Rate mL/min > 60 Glucose Level 99 Calcium Level 8.4 Phosphorus Level 3.8 Magnesium Level 1.5 L Medications Medication Current Medications IV Flush (NS 3 ml) 3 ml PER PROTOCOL IV ; Start 12/31/18 at 18:30 Ondansetron HCl (Zofran Inj) 4 mg Q6H PRN IV NAUSEA/VOMITING Last administered on 01/05/19at 01:03; Admin Dose 4 MG; Start 12/31/18 at 18:30 Acetaminophen (Tylenol Tab) 650 mg Q6H PRN PO .PAIN 1-3 OR TEMP Last administered on 01/03/19at 11:17; Admin Dose 650 MG; Start 12/31/18 at 18:30 Acetaminophen/ Hydrocodone Bitart ([place] (5/325)) 1 tab Q6H PRN PO .MOD PAIN 4- 6 Last administered on 01/09/19 09:06; Admin Dose 1 TAB; Start 12/31/18 at 18:30 Docusate Sodium (Colace) 100 mg Q12H PRN PO .CONSTIPATION; Start 12/31/18 at 18:30 Magnesium Hydroxide (Milk Of Mag) 30 ml DAILY PRN PO .CONSTIPATION; Start 12/07 04/23 at 18:30 Lorazepam (Ativan) 0.5 mg Q6H PRN IV ANXIETY Last administered on 01/02/19 12:32; Admin Dose 0.5 MG; Start 12/31/18 at 18:30 Albuterol/ Ipratropium (Duoneb) 3 ml Q4H RESP THERAPY PRN HHN SHORTNESS OF BREATH Last administered on 01/03/19 14:14; Admin Dose 3 ML; Start 12/31/18 at 18:30 Hydralazine HCl (Apresoline) 10 mg Q6H PRN IV ELEVATED BLOOD PRESSURE; Start 12/31/18 at 18:30 Nitroglycerin (Nitroglycerin (Sl Tab) 0.4 Mg) 1 tab Q5M PRN SL ANGINA; Start 12/31/18 at 18:30 Guaifenesin (Robitussin Liquid Cup) 200 mg Q4H PRN PO COUGH Last administered on 01/08/19 20:19; Admin Dose 200 MG; Start 01/01/19 at 11:30 Ibuprofen (Motrin) 600 mg Q6H PRN PO MILD PAIN LEVEL 1-3 Last administered on 01/03/19 12:14; Admin Dose 600 MG; Start 01/01/19 at 17:30 Phenol (Cepastat Lozenge) 1 lozenge Q1H PRN MT COUGH Last administered on 01/09/19 09:06; Admin Dose 1 LOZENGE; Start 01/02/19 at 12:30 Famotidine (Pepcid) 20 mg DAILY PO Last administered on 01/09/19 09:03; Admin Dose 20 MG; Start 01/03/19 at 09:00 Levofloxacin (Levaquin) 750 mg DAILY@06 PO Last administered on 01/09/19 05:29; Admin Dose 750 MG; Start 01/08/19 at 06:00 Morphine Sulfate (morphine) 6 mg Q4H PRN PO SEVERE PAIN LEVEL 7-10 Last administered on 01/09/19 11:02; Admin Dose 6 MG; Start 01/07/19 at 23:30 Levalbuterol (Xopenex Neb) 0.63 mg Q6H RESP THERAPY PRN HHN COUGH Last administered on 01/09/19 09:44; Admin Dose 0.63 MG; Start 01/08/19 at 13:05 Ceftriaxone Sodium 50 ml @ 100 mls/hr Q24H IVPB Last administered on 01/09/19 13:40; Admin Dose 100 MLS/HR; Start 01/09/19 at 13:00 ALEX CLARKE MD Jan 09, 2019 15:01
[2019-01-09] MEDS: ALBUTEROL/IPRATROPIUM (NEB) 3 ML AMP HHN PRN (19:19)
[2019-01-09] MEDS: GUAIFENESIN 20 MG/ML 5ML CUP PO PRN (20:03)
[2019-01-10] MEDS: GUAIFENESIN 20 MG/ML 5ML CUP PO PRN ×3 (00:19→14:22)
[2019-01-10] MEDS: morphine LIQ (10 MG/5 ML) CUP PO PRN ×3 (00:21→17:50)
[2019-01-10] MEDS: LEVALBUTEROL (NEB) 0.63 MG/3 ML AMP HHN SCH ×6 (01:00→21:00)
[2019-01-10 02:00] VITALS: BP 130/90; PULSE 100; RESP 18
[2019-01-10] MEDS: LEVOFLOXACIN 750 MG TABLET PO SCH (06:36)
[2019-01-10 07:33] VITALS: BP 116/76; PULSE 95; RESP 17
--- NOTE | 2019-01-10 08:04 | PAC ---
Date/Time of Note Date/Time of Note DATE: 01/10/19 TIME: 08:04 Post-Anesthesia Notes Post-Anesthesia Note Last documented vital signs Vital Signs Date Temp Pulse Resp B/P (MAP) Pulse Ox O2 O2 Flow FiO2 Time Delivery Rate 01/10/19 3.0 07:56 01/10/19 102 26 97 Nasal 07:56 Cannula 01/10/19 98.3 116/76 07:33 (89) 01/10/19 21 01:00 Activity: WNL Respiratory function: WNL Cardiovascular function: WNL Mental status: Baseline Pain reasonably controlled: Yes Hydration appropriate: Yes Nausea/Vomiting absent: Yes JUDI JACOBO MD Jan 10, 2019 08:04
[2019-01-10] MEDS: FAMOTIDINE 20 MG TAB PO SCH (08:29)
--- NOTE | 2019-01-10 11:55 | CONS ---
Assessment/Plan Assessment/Plan Hospital Course (Demo Recall) No acute events, looks comfortable, no fevers Microbiology: Blood culture on admission grew Corynebacterium species. Repeat blood cultures the next day negative sputum culture negative MRSA swab negative HIV serology negative. Chest x-ray on admission revealed focal left lower lobe infiltrate. Mild right midlung atelectasis. Antimicrobials: Levaquin, Cefepime. Assessment: 1. S/p sepsis present on admission, resolving 2. Community-acquired pneumonia 3. Hemoptysis, resolved 4. History of endocarditis==> MADINA neg 5. IV drug abuse 6. Coronary artery disease with a history of tricuspid valve replacement and permanent pacemaker placement 6. Bacteremia cw contaminant Plan: Stable, as per dw cardiology no evidence for endocarditis, will repeat bld cx, continue abx, pending repeat CT chest DW Dr Mcduffie Consultation Date/Type/Reason Admit Date/Time Dec 31, 2018 at 18:14 Initial Consult Date Type of Consult id Requesting Provider: ALEX CLARKE MD Date/Time of Note DATE: 01/10/19 TIME: 11:54 Exam/Review of Systems Exam Vitals Vital Signs Date Temp Pulse Resp B/P (MAP) Pulse Ox O2 O2 Flow FiO2 Time Delivery Rate 01/10/19 Nasal 3.0 08:00 Cannula 01/10/19 102 26 97 07:56 01/10/19 98.3 116/76 07:33 (89) 01/10/19 21 01:00 Intake and Output 01/09/19 01/09/19 01/10/19 1515:00 23:00 07:00 IntakeIntake Total 1010 ml 240 ml OutputOutput Total 1650 ml 1200 ml BalanceBalance -640 ml -960 ml Results Result Diagram: 01/09/19 0853 01/10/19 0931 Results 24hrs Laboratory Tests Test 01/10/19 09:31 Sodium Level 138 Potassium Level 4.0 Chloride Level 102 Carbon Dioxide Level 28 Anion Gap 8 Blood Urea Nitrogen 8 Creatinine 0.72 Est Glomerular Filtrat Rate mL/min > 60 Glucose Level 123 Calcium Level 8.7 Medications Medication Current Medications IV Flush (NS 3 ml) 3 ml PER PROTOCOL IV ; Start 12/31/18 at 18:30 Ondansetron HCl (Zofran Inj) 4 mg Q6H PRN IV NAUSEA/VOMITING Last administered on 01/05/19 01:03; Admin Dose 4 MG; Start 12/31/18 at 18:30 Acetaminophen (Tylenol Tab) 650 mg Q6H PRN PO .PAIN 1-3 OR TEMP Last administered on 01/03/19 11:17; Admin Dose 650 MG; Start 12/31/18 at 18:30 Acetaminophen/ Hydrocodone Bitart ([place] (5/325)) 1 tab Q6H PRN PO .MOD PAIN 4- 6 Last administered on 01/09/19 09:06; Admin Dose 1 TAB; Start 12/31/18 at 18:30 Docusate Sodium (Colace) 100 mg Q12H PRN PO .CONSTIPATION; Start 12/31/18 at 18:30 Magnesium Hydroxide (Milk Of Mag) 30 ml DAILY PRN PO .CONSTIPATION; Start 12/31/18 at 18:30 Lorazepam (Ativan) 0.5 mg Q6H PRN IV ANXIETY Last administered on 01/02/19 12:32; Admin Dose 0.5 MG; Start 12/31/18 at 18:30 Albuterol/ Ipratropium (Duoneb) 3 ml Q4H RESP THERAPY PRN HHN SHORTNESS OF BREATH Last administered on 01/09/19 19:19; Admin Dose 3 ML; Start 12/31/18 at 18:30 Hydralazine HCl (Apresoline) 10 mg Q6H PRN IV ELEVATED BLOOD PRESSURE; Start 12/31/18 at 18:30 Nitroglycerin (Nitroglycerin (Sl Tab) 0.4 Mg) 1 tab Q5M PRN SL ANGINA; Start 12/31/18 at 18:30 Guaifenesin (Robitussin Liquid Cup) 200 mg Q4H PRN PO COUGH Last administered on 01/10/19 09:39; Admin Dose 200 MG; Start 01/01/19 at 11:30 Ibuprofen (Motrin) 600 mg Q6H PRN PO MILD PAIN LEVEL 1-3 Last administered on 01/03/19 12:14; Admin Dose 600 MG; Start 01/01/19 at 17:30 Phenol (Cepastat Lozenge) 1 lozenge Q1H PRN MT COUGH Last administered on 01/09/19 09:06; Admin Dose 1 LOZENGE; Start 01/02/19 at 12:30 Famotidine (Pepcid) 20 mg DAILY PO Last administered on 01/10/19 08:29; Admin Dose 20 MG; Start 01/03/19 at 09:00 Levofloxacin (Levaquin) 750 mg DAILY@06 PO Last administered on 01/10/19 06:36; Admin Dose 750 MG; Start 01/08/19 at 06:00 Morphine Sulfate (morphine) 6 mg Q4H PRN PO SEVERE PAIN LEVEL 7-10 Last administered on 01/10/19 09:40; Admin Dose 6 MG; Start 01/07/19 at 23:30 Ceftriaxone Sodium 50 ml @ 100 mls/hr Q24H IVPB Last administered on 01/09/19 13:40; Admin Dose 100 MLS/HR; Start 01/09/19 at 13:00 Levalbuterol (Xopenex Neb) 0.63 mg Q4H RESP THERAPY HHN Last administered on 01/10/19 07:55; Admin Dose 0.63 MG; Start 01/10/19 at 01:00 HAYLEE ENGLE NP Jan 10, 2019 11:55
--- NOTE | 2019-01-10 13:17 | CONS ---
DATE OF ADMISSION: 12/31/2018 DATE OF CONSULTATION: TYPE OF CONSULTATION: Pulmonary. REASON FOR CONSULTATION: Shortness of breath. Thank you, Dr. Clarke, for this consultation. HISTORY OF PRESENT ILLNESS: This is a 28-year-old gentleman with history of IV drug abuse, came in w ith productive cough and 1-week history of hemoptysis. The patient is a poor historian. States he h as had 1-week history of hemoptysis, subjective fever, chills and on admission, found to be tachycard ic. He subsequently grown blood cultures positive for Corynebacterium and inconclusive echocardiogra m concerning for possible infective endocarditis. The patient continues to have leukocytosis and hem optysis. CT chest performed on 01/02/2019 was unremarkable for cavitary lung disease and also negati ve for pulmonary embolus. PAST MEDICAL HISTORY: Polysubstance abuse, intravenous drug use. MEDICATIONS: Per chart. ALLERGIES: NONE. PHYSICAL EXAMINATION: GENERAL: Well-nourished, well-developed gentleman, appears comfortable at rest, in no acute distress . VITAL SIGNS: Currently afebrile, pulse is 100, blood pressure 116/76, O2 saturation 96% on 3 liters. NECK: Supple. No JVD or lymphadenopathy. CARDIAC: S1, S2. No added sounds or murmurs. CHEST: Diminished air entry bilaterally. ABDOMEN: Soft, nontender. No guarding or rebound. EXTREMITIES: No cyanosis, clubbing. A1+ edema. NEUROLOGIC: Generalized weakness, but no focal deficits. LABORATORY DATA: White count 12.3, hemoglobin 9.1, platelets of 256. Chemistry within normal limits . INR 1.42. U-tox was positive for amphetamines. IMPRESSION AND PLAN: 1. Recurrent hemoptysis and the absence of significant previous cavitary lung disease. 2. Intravenous drug abuse. 3. Possible infective endocarditis with positive blood cultures. The patient will require: 1. Repeat CT chest prior to possible bronchoscopy. 2. Continue antibiotics per infectious diseases. 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 4. DVT and GI prophylaxis. Dictated By: CAROLINA BEATTY MD SV/NTS Conf#: [id number] DID#: [id number] CC: ROWAN OVALLE; ALEX CLARKE MD;*EndCC*
--- NOTE | 2019-01-10 14:07 | CONS ---
Assessment/Plan Assessment/Plan Hospital Course (Demo Recall) IMPRESSION: 1. Bacteremia, assess for intracardiac source of infection, rule out endocarditis.- s/p MADINA 01/08 with chronic prior changes of TVR and nonspecific findings associated with pacer leads. No definite findings of vegetations. bLD CX'S 01/01 ntd 2. History of permanent pacemaker. 3. History of tricuspid valve repair. 4. History of IV drug abuse with ongoing drug usage and toxicology positive for amphetamines and cannabinoids. 5. History of peptic ulcer disease. 6. Cough and hemoptysis. Recc: -tele -would f/u cx data as MADINA without definite findings of ongoing vegetations but with chronic changes and base further abx therapy upon the cx data -Contineu abx's and this time Consultation Date/Type/Reason Admit Date/Time Dec 31, 2018 at 18:14 Initial Consult Date 01/08/19 Type of Consult Cardiology Reason for Consultation bacteremia Requesting Provider: ALEX CLARKE MD Date/Time of Note DATE: 01/10/19 TIME: 14:06 Exam/Review of Systems Vital Signs Vitals Vital Signs Date Temp Pulse Resp B/P (MAP) Pulse Ox O2 O2 Flow FiO2 Time Delivery Rate 01/10/19 Nasal 3.0 08:00 Cannula 01/10/19 102 26 97 07:56 01/10/19 98.3 116/76 07:33 (89) 01/10/19 21 01:00 Intake and Output 01/09/19 01/09/19 01/10/19 1414:59 22:59 06:59 IntakeIntake Total 1010 ml 240 ml OutputOutput Total 1650 ml 1200 ml BalanceBalance -640 ml -960 ml Exam Exam Review of Systems: CONSTITUTIONAL: No fevers, chills. PULMONARY: No sob CARDIOVASCULAR: No chest pain/palpitations GASTROINTESTINAL: No nausea/vomiting. GENITOURINARY: No hematuria/dysuria. MUSCULOSKELETAL: No myagias/arthalgias. PSYCHIATRIC: The patient denies depression. NEUROLOGIC: No weakness Constitutional: alert Psych: no complaints Head: normocephalic ENMT: mucosa pink and moist Neck: supple, jvd (9 cm water) Respiratory: clear to auscultation Cardiovascular: regular rate and rhythm Gastrointestinal: soft, non-tender Musculoskeletal: muscle tone (normal) Extremities: edema (none) Neurological: other (No focal deficits) Labs Result Diagram: 01/09/19 0853 01/10/19 0931 Results 24hrs Laboratory Tests Test 01/10/19 09:31 01/10/19 12:02 Sodium Level 138 Potassium Level 4.0 Chloride Level 102 Carbon Dioxide Level 28 Anion Gap 8 Blood Urea Nitrogen 8 Creatinine 0.72 Est Glomerular Filtrat Rate mL/min > 60 Glucose Level 123 Calcium Level 8.7 Blood Gas Specimen Source Blood arterial Arterial Blood Date Drawn 01/10/2019 12:52:20 PM Arterial Blood pH (Temp corrected) 7.473 H Arterial Blood pCO2 (Temp correct) 39.0 Arterial Blood pO2 (Temp corrected) 55.1 L Arterial Blood HCO3 27.9 H Arterial Blood Base Excess 4.1 H Arterial Blood Oxygen Saturation 88.7 L Yuri Test ACCEPTAB Arterial Blood Gas Puncture Site Right Radial Arterial Blood Carboxyhemoglobin 0.2 Arterial Blood Methemoglobin 0.1 Blood Gas A-a O2 Differential 47.9 H Oxyhemoglobin Percent 88.4 L Blood Gas Temperature 37.0 Blood Gas Modality ROOM AIR FiO2 21.0 Blood Gas Notified Whom TM Blood Gas Notified Time 01/10/2019 1:03:49 PM Medications Medications Current Medications IV Flush (NS 3 ml) 3 ml PER PROTOCOL IV ; Start 12/31/18 at 18:30 Ondansetron HCl (Zofran Inj) 4 mg Q6H PRN IV NAUSEA/VOMITING Last administered on 01/05/19 01:03; Admin Dose 4 MG; Start 12/31/18 at 18:30 Acetaminophen (Tylenol Tab) 650 mg Q6H PRN PO .PAIN 1-3 OR TEMP Last administered on 01/03/19 11:17; Admin Dose 650 MG; Start 12/31/18 at 18:30 Acetaminophen/ Hydrocodone Bitart ([place] (5/325)) 1 tab Q6H PRN PO .MOD PAIN 4- 6 Last administered on 01/09/19 09:06; Admin Dose 1 TAB; Start 12/31/18 at 18:30 Docusate Sodium (Colace) 100 mg Q12H PRN PO .CONSTIPATION; Start 12/31/18 at 18:30 Magnesium Hydroxide (Milk Of Mag) 30 ml DAILY PRN PO .CONSTIPATION; Start 12/31/18 at 18:30 Albuterol/ Ipratropium (Duoneb) 3 ml Q4H RESP THERAPY PRN HHN SHORTNESS OF BREATH Last administered on 01/09/19 19:19; Admin Dose 3 ML; Start 12/31/18 at 18:30 Hydralazine HCl (Apresoline) 10 mg Q6H PRN IV ELEVATED BLOOD PRESSURE; Start 12/31/18 at 18:30 Nitroglycerin (Nitroglycerin (Sl Tab) 0.4 Mg) 1 tab Q5M PRN SL ANGINA; Start 12/31/18 at 18:30 Guaifenesin (Robitussin Liquid Cup) 200 mg Q4H PRN PO COUGH Last administered on 01/10/19 09:39; Admin Dose 200 MG; Start 01/01/19 at 11:30 Ibuprofen (Motrin) 600 mg Q6H PRN PO MILD PAIN LEVEL 1-3 Last administered on 01/03/19 12:14; Admin Dose 600 MG; Start 01/01/19 at 17:30 Phenol (Cepastat Lozenge) 1 lozenge Q1H PRN MT COUGH Last administered on 01/09/19 09:06; Admin Dose 1 LOZENGE; Start 01/02/19 at 12:30 Famotidine (Pepcid) 20 mg DAILY PO Last administered on 01/10/19 08:29; Admin Dose 20 MG; Start 01/03/19 at 09:00 Levofloxacin (Levaquin) 750 mg DAILY@06 PO Last administered on 01/10/19 06:36; Admin Dose 750 MG; Start 01/08/19 at 06:00 Morphine Sulfate (morphine) 6 mg Q4H PRN PO SEVERE PAIN LEVEL 7-10 Last administered on 01/10/19 09:40; Admin Dose 6 MG; Start 01/07/19 at 23:30 Ceftriaxone Sodium 50 ml @ 100 mls/hr Q24H IVPB Last administered on 01/09/19 13:40; Admin Dose 100 MLS/HR; Start 01/09/19 at 13:00 Levalbuterol (Xopenex Neb) 0.63 mg Q4H RESP THERAPY HHN Last administered on 01/10/19 07:55; Admin Dose 0.63 MG; Start 01/10/19 at 01:00 ALEX TRAN 8, 2019 14:07
[2019-01-10] MEDS: CEFTRIAXONE 1 GM/50 ML (PMX) 50 ML IVPB SCH (14:13)
[2019-01-10] MEDS: ONDANSETRON 4 MG INJ IV PRN (14:22)
[2019-01-10 14:25] VITALS: BP 128/84; PULSE 98; RESP 20
--- NOTE | 2019-01-10 17:08 | PN ---
Date/Time of Note Date/Time of Note DATE: 01/10/19 TIME: 17:06 Assessment/Plan VTE Prophylaxis Risk score (from Ns)>0 risk: 5 SCD applied (from Ns): Yes Pharmacological prophylaxis: NA/contraindicated Pharm contraindication: low risk/ambulating Lines/Catheters IV Catheter Type (from [facility]): [facility] Urinary Cath still in place: No Assessment/Plan Assessment/Plan 28-year-old man coming in with productive cough, possible hemoptysis for last 7 to 10 days prior to admission, with signs of leukocytosis and pneumonia with a prior history of IV drug abuse, endocarditis, pacemaker and pulmonary embolism and tricuspid valve repair. # Cough and hemoptysis #Hypoxia - Likely secondary to the pneumonia - Continues to have hemoptysis -Continue broad spectrum antibiotics, low-dose IV fluids, Tylenol p.r.n. pain and fevers. - Repeat CT chest with patchy infiltrates throughout - Dr. Mcduffie consulted, may need bronch. # Bacteremia - Blood cultures growing 2/2 bottles corynebacteria - MADINA indeterminate for vegetations on tricuspid valve. - Plan for 4 weeks of ceftriaxone per ID recommendations. - Patient is homeless, so any course of IV antibiotics will likely need to be completed in hospital. 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 - counseled on cessation. # History of prior pacemaker. - Monitored for one week on tele. He does develop occasional V-paced t achycardia, asymptomatic - Transfer to med/surg # History of peptic ulcer disease - H2 sharona. Otherwise, no present issues. Result Diagram: 01/09/19 0853 01/10/19 0931 Subjective 24 Hr Interval Summary Free Text/Dictation No acute overnight events. Continues to have cough, no longer productive of sputum. Saturating comfortably on room air. Exam/Review of Systems Exam Vitals Vital Signs Date Temp Pulse Resp B/P (MAP) Pulse Ox O2 O2 Flow FiO2 Time Delivery Rate 01/10/19 102 22 97 Nasal 3.0 16:58 Cannula 01/10/19 97.6 128/84 14:25 (99) 01/10/19 21 01:00 Intake and Output 01/09/19 01/09/19 01/10/19 1414:59 22:59 06:59 IntakeIntake Total 1010 ml 240 ml OutputOutput Total 1650 ml 1200 ml BalanceBalance -640 ml -960 ml Exam GENERAL: lying in bed, no acute distress HEENT: Pupils are equal, round, react to light. Extraocular muscles are intact. NECK: Supple. No thyromegaly. LUNGS: Distant breath sounds bilaterally. Crackles in bilateral lung bases. CARDIOVASCULAR: S1, S2 heard. No rubs or gallops. ABDOMEN: Soft, nontender, nondistended. Normal bowel sounds. No rebound or guarding. MUSCULOSKELETAL: No lower extremity edema bilaterally. NEUROLOGIC: No focal deficits. Results Results 24hrs Laboratory Tests Test 01/10/19 09:31 01/10/19 12:02 Sodium Level 138 Potassium Level 4.0 Chloride Level 102 Carbon Dioxide Level 28 Anion Gap 8 Blood Urea Nitrogen 8 Creatinine 0.72 Est Glomerular Filtrat Rate mL/min > 60 Glucose Level 123 Calcium Level 8.7 Blood Gas Specimen Source Blood arterial Arterial Blood Date Drawn 01/10/2019 12:52:20 PM Arterial Blood pH (Temp corrected) 7.473 H Arterial Blood pCO2 (Temp correct) 39.0 Arterial Blood pO2 (Temp corrected) 55.1 L Arterial Blood HCO3 27.9 H Arterial Blood Base Excess 4.1 H Arterial Blood Oxygen Saturation 88.7 L Yuri Test ACCEPTAB Arterial Blood Gas Puncture Site Right Radial Arterial Blood Carboxyhemoglobin 0.2 Arterial Blood Methemoglobin 0.1 Blood Gas A-a O2 Differential 47.9 H Oxyhemoglobin Percent 88.4 L Blood Gas Temperature 37.0 Blood Gas Modality ROOM AIR FiO2 21.0 Blood Gas Notified Whom TM Blood Gas Notified Time 01/10/2019 1:03:49 PM Medications Medication Current Medications IV Flush (NS 3 ml) 3 ml PER PROTOCOL IV ; Start 12/31/18 at 18:30 Ondansetron HCl (Zofran Inj) 4 mg Q6H PRN IV NAUSEA/VOMITING Last administered on 01/10/19at 14:22; Admin Dose 4 MG; Start 12/31/18 at 18:30 Acetaminophen (Tylenol Tab) 650 mg Q6H PRN PO .PAIN 1-3 OR TEMP Last administer ed on 01/03/19at 11:17; Admin Dose 650 MG; Start 12/31/18 at 18:30 Acetaminophen/ Hydrocodone Bitart ([place] (5/325)) 1 tab Q6H PRN PO .MOD PAIN 4- 6 Last administered on 01/09/19 09:06; Admin Dose 1 TAB; Start 12/31/18 at 18:30 Docusate Sodium (Colace) 100 mg Q12H PRN PO .CONSTIPATION; Start 12/31/18 at 18:30 Magnesium Hydroxide (Milk Of Mag) 30 ml DAILY PRN PO .CONSTIPATION; Start 12/31/18 at 18:30 Albuterol/ Ipratropium (Duoneb) 3 ml Q4H RESP THERAPY PRN HHN SHORTNESS OF BREATH Last administered on 01/09/19 19:19; Admin Dose 3 ML; Start 12/31/18 at 18:30 Hydralazine HCl (Apresoline) 10 mg Q6H PRN IV ELEVATED BLOOD PRESSURE; Start 12/31/18 at 18:30 Nitroglycerin (Nitroglycerin (Sl Tab) 0.4 Mg) 1 tab Q5M PRN SL ANGINA; Start 12/31/18 at 18:30 Guaifenesin (Robitussin Liquid Cup) 200 mg Q4H PRN PO COUGH Last administered on 01/10/19 14:22; Admin Dose 200 MG; Start 01/01/19 at 11:30 Ibuprofen (Motrin) 600 mg Q6H PRN PO MILD PAIN LEVEL 1-3 Last administered on 01/03/19 12:14; Admin Dose 600 MG; Start 01/01/19 at 17:30 Phenol (Cepastat Lozenge) 1 lozenge Q1H PRN MT COUGH Last administered on 01/09/19 09:06; Admin Dose 1 LOZENGE; Start 01/02/19 at 12:30 Famotidine (Pepcid) 20 mg DAILY PO Last administered on 01/10/19 08:29; Admin Dose 20 MG; Start 01/03/19 at 09:00 Levofloxacin (Levaquin) 750 mg DAILY@06 PO Last administered on 01/10/19 06:36; Admin Dose 750 MG; Start 01/08/19 at 06:00 Morphine Sulfate (morphine) 6 mg Q4H PRN PO SEVERE PAIN LEVEL 7-10 Last administered on 01/10/19 09:40; Admin Dose 6 MG; Start 01/07/19 at 23:30 Ceftriaxone Sodium 50 ml @ 100 mls/hr Q24H IVPB Last administered on 01/10/19at 14:13; Admin Dose 100 MLS/HR; Start 01/09/19 at 13:00 Levalbuterol (Xopenex Neb) 0.63 mg Q4H RESP THERAPY HHN Last administered on 01/10/19at 16:58; Admin Dose 0.63 MG; Start 01/10/19 at 01:00 ALEX CLARKE MD Jan 10, 2019 17:08
[2019-01-10 19:45] VITALS: BP 140/89; PULSE 104; RESP 16
[2019-01-10 19:50] VITALS: PULSE 100
[2019-01-11] MEDS: LEVALBUTEROL (NEB) 0.63 MG/3 ML AMP HHN SCH ×6 (00:33→21:44)
[2019-01-11] MEDS: morphine LIQ (10 MG/5 ML) CUP PO PRN ×3 (01:12→19:44)
[2019-01-11] MEDS: GUAIFENESIN 20 MG/ML 5ML CUP PO PRN ×4 (01:12→21:02)
[2019-01-11 02:00] VITALS: BP 122/79; PULSE 91; RESP 18
[2019-01-11] MEDS: LEVOFLOXACIN 750 MG TABLET PO SCH (05:49)
[2019-01-11 07:34] VITALS: BP 120/71; PULSE 104; RESP 18
[2019-01-11] MEDS: FAMOTIDINE 20 MG TAB PO SCH (08:39)
--- NOTE | 2019-01-11 12:40 | CONS ---
Consult Date/Type/Reason Admit Date/Time Dec 31, 2018 at 18:14 Initial Consult Date Type of Consult Pulmonary Requesting Provider: ALEX CLARKE MD Date/Time of Note DATE: 01/11/19 TIME: 12:37 Subjective No significant changes remains stable this morning CT chest notes multiple thin- walled cavities dense infiltrates and possible mycetoma. Objective Vital Signs Date Temp Pulse Resp B/P (MAP) Pulse Ox O2 O2 Flow FiO2 Time Delivery Rate 01/11/19 85 22 2 Nasal 2.0 12:16 Cannula 01/11/19 98.2 120/71 07:34 (87) 01/10/19 21 01:00 Intake and Output 01/10/19 01/10/19 01/11/19 1515:00 23:00 07:00 IntakeIntake Total 360 ml 850 ml 2040 ml OutputOutput Total 1725 ml 725 ml 2000 ml BalanceBalance -1365 ml 125 ml 40 ml Exam GENERAL: Well-nourished well-developed gentleman comfortable at rest VITAL SIGNS: per chart NECK: Supple. No JVD or lymphadenopathy. CARDIAC EXAM: S1, S2. No added sounds or murmurs. CHEST: clear bilaterally, No added sounds, rales or wheezes ABDOMEN: Soft, nontender. No guarding or rebound. EXTREMITIES: No cyanosis, clubbing or edema. NEUROLOGIC: Generalized weakness. No focal deficits. Vent Setting Fraction of Inspired Oxygen pe: 21 Results/Medications Result Diagram: 01/11/19 0500 01/11/19 0500 Results 24 hrs Laboratory Tests Test 01/11/19 05:00 White Blood Count 9.8 # Red Blood Count 3.52 L Hemoglobin 9.5 L Hematocrit 30.4 L Mean Corpuscular Volume 86.4 Mean Corpuscular Hemoglobin 27.0 L Mean Corpuscular Hemoglobin Concent 31.3 L Red Cell Distribution Width 15.9 H Platelet Count 258 Mean Platelet Volume 8.9 Immature Granulocytes % 1.400 H Neutrophils % 69.3 Lymphocytes % 16.5 Monocytes % 4.5 Eosinophils % 7.7 H Basophils % 0.6 Nucleated Red Blood Cells % 0.0 Immature Granulocytes # 0.140 H Neutrophils # 6.8 Lymphocytes # 1.6 Monocytes # 0.4 Eosinophils # 0.8 H Basophils # 0.1 Nucleated Red Blood Cells # 0.0 Sodium Level 138 Potassium Level 4.2 Chloride Level 101 Carbon Dioxide Level 29 Anion Gap 8 Blood Urea Nitrogen 11 Creatinine 0.92 Est Glomerular Filtrat Rate mL/min > 60 Glucose Level 98 Calcium Level 8.5 Phosphorus Level 4.9 Magnesium Level 1.8 Medications Current Medications IV Flush (NS 3 ml) 3 ml PER PROTOCOL IV ; Start 12/31/18 at 18:30 Ondansetron HCl (Zofran Inj) 4 mg Q6H PRN IV NAUSEA/VOMITING Last administered on 01/10/19 14:22; Admin Dose 4 MG; Start 12/31/18 at 18:30 Acetaminophen (Tylenol Tab) 650 mg Q6H PRN PO .PAIN 1-3 OR TEMP Last administered on 01/03/19 11:17; Admin Dose 650 MG; Start 12/31/18 at 18:30 Acetaminophen/ Hydrocodone Bitart ([place] (5/325)) 1 tab Q6H PRN PO .MOD PAIN 4- 6 Last administered on 01/09/19 09:06; Admin Dose 1 TAB; Start 12/31/18 at 18:30 Docusate Sodium (Colace) 100 mg Q12H PRN PO .CONSTIPATION; Start 12/31/18 at 18:30 Magnesium Hydroxide (Milk Of Mag) 30 ml DAILY PRN PO .CONSTIPATION; Start 12/31/18 at 18:30 Albuterol/ Ipratropium (Duoneb) 3 ml Q4H RESP THERAPY PRN HHN SHORTNESS OF BREATH Last administered on 01/09/19 19:19; Admin Dose 3 ML; Start 12/31/18 at 18:30 Hydralazine HCl (Apresoline) 10 mg Q6H PRN IV ELEVATED BLOOD PRESSURE; Start 12/31/18 at 18:30 Nitroglycerin (Nitroglycerin (Sl Tab) 0.4 Mg) 1 tab Q5M PRN SL ANGINA; Start 12/31/18 at 18:30 Guaifenesin (Robitussin Liquid Cup) 200 mg Q4H PRN PO COUGH Last administered on 01/11/19 11:33; Admin Dose 200 MG; Start 01/01/19 at 11:30 Ibuprofen (Motrin) 600 mg Q6H PRN PO MILD PAIN LEVEL 1-3 Last administered on 01/03/19 12:14; Admin Dose 600 MG; Start 01/01/19 at 17:30 Phenol (Cepastat Lozenge) 1 lozenge Q1H PRN MT COUGH Last administered on 01/09/19 09:06; Admin Dose 1 LOZENGE; Start 01/02/19 at 12:30 Famotidine (Pepcid) 20 mg DAILY PO Last administered on 01/11/19 08:39; Admin Dose 20 MG; Start 01/03/19 at 09:00 Levofloxacin (Levaquin) 750 mg DAILY@06 PO Last administered on 01/11/19 05:49; Admin Dose 750 MG; Start 01/08/19 at 06:00 Morphine Sulfate (morphine) 6 mg Q4H PRN PO SEVERE PAIN LEVEL 7-10 Last administered on 01/11/19 11:33; Admin Dose 6 MG; Start 01/07/19 at 23:30 Ceftriaxone Sodium 50 ml @ 100 mls/hr Q24H IVPB Last administered on 01/10/19 14:13; Admin Dose 100 MLS/HR; Start 01/09/19 at 13:00 Levalbuterol (Xopenex Neb) 0.63 mg Q4H RESP THERAPY HHN Last administered on 01/11/19 12:16; Admin Dose 0.63 MG; Start 01/10/19 at 01:00 Assessment/Plan Hospital Course (Demo Recall) IMPRESSION 1. Recurrent hemoptysis multiple thin-walled cavities suggestive of prior septic emboli and evidence of possible fungal infiltration also. 2. Intravenous drug abuse. 3. Possible infective endocarditis with positive blood cultures. Recommendations 1. Consider empiric treatment for fungal infection possible aspergillosis/aspergilloma 2. Continue antibiotics per infectious diseases. 3. sample worker evaluation. 4. DVT and GI prophylaxis. CAROLINA BEATTY MD, [facility] Jan 11, 2019 12:40
--- NOTE | 2019-01-11 12:46 | CONS ---
Assessment/Plan Assessment/Plan Hospital Course (Demo Recall) No acute events, looks comfortable, no fevers Microbiology: Blood culture on admission grew Corynebacterium species. Repeat blood cultures the next day negative sputum culture negative MRSA swab negative HIV serology negative. Chest x-ray on admission revealed focal left lower lobe infiltrate. Mild right midlung atelectasis. Antimicrobials: Levaquin, Cefepime. Assessment: 1. S/p sepsis present on admission, resolving 2. Community-acquired pneumonia with repeat CT notes multiple thin-walled cavities dense infiltrates and possible mycetoma. 3. Hemoptysis 4. History of endocarditis==> MADINA neg 5. IV drug abuse 6. Coronary artery disease with a history of tricuspid valve replacement and permanent pacemaker placement 6. Bacteremia cw contaminant Plan: Clinically unchanged, pulmonary recommendations noted, we will add oral voriconazole, send cocci, continue antibiotics. I ordered a repeat blood cultures this morning we will follow results Consultation Date/Type/Reason Admit Date/Time Dec 31, 2018 at 18:14 Initial Consult Date Type of Consult id Requesting Provider: ALEX CLARKE MD Date/Time of Note DATE: 01/11/19 TIME: 12:45 Exam/Review of Systems Exam Vitals Vital Signs Date Temp Pulse Resp B/P (MAP) Pulse Ox O2 O2 Flow FiO2 Time Delivery Rate 01/11/19 85 22 2 Nasal 2.0 12:16 Cannula 01/11/19 98.2 120/71 07:34 (87) 01/10/19 21 01:00 Intake and Output 01/10/19 01/10/19 01/11/19 1515:00 23:00 07:00 IntakeIntake Total 360 ml 850 ml 2040 ml OutputOutput Total 1725 ml 725 ml 2000 ml BalanceBalance -1365 ml 125 ml 40 ml Results Result Diagram: 01/11/19 0500 01/11/19 0500 Results 24hrs Laboratory Tests Test 01/11/19 05:00 White Blood Count 9.8 # Red Blood Count 3.52 L Hemoglobin 9.5 L Hematocrit 30.4 L Mean Corpuscular Volume 86.4 Mean Corpuscular Hemoglobin 27.0 L Mean Corpuscular Hemoglobin Concent 31.3 L Red Cell Distribution Width 15.9 H Platelet Count 258 Mean Platelet Volume 8.9 Immature Granulocytes % 1.400 H Neutrophils % 69.3 Lymphocytes % 16.5 Monocytes % 4.5 Eosinophils % 7.7 H Basophils % 0.6 Nucleated Red Blood Cells % 0.0 Immature Granulocytes # 0.140 H Neutrophils # 6.8 Lymphocytes # 1.6 Monocytes # 0.4 Eosinophils # 0.8 H Basophils # 0.1 Nucleated Red Blood Cells # 0.0 Sodium Level 138 Potassium Level 4.2 Chloride Level 101 Carbon Dioxide Level 29 Anion Gap 8 Blood Urea Nitrogen 11 Creatinine 0.92 Est Glomerular Filtrat Rate mL/min > 60 Glucose Level 98 Calcium Level 8.5 Phosphorus Level 4.9 Magnesium Level 1.8 Medications Medication Current Medications IV Flush (NS 3 ml) 3 ml PER PROTOCOL IV ; Start 12/31/18 at 18:30 Ondansetron HCl (Zofran Inj) 4 mg Q6H PRN IV NAUSEA/VOMITING Last administered on 01/10/19 14:22; Admin Dose 4 MG; Start 12/31/18 at 18:30 Acetaminophen (Tylenol Tab) 650 mg Q6H PRN PO .PAIN 1-3 OR TEMP Last administered on 01/03/19 11:17; Admin Dose 650 MG; Start 12/31/18 at 18:30 Acetaminophen/ Hydrocodone Bitart ([place] (5/325)) 1 tab Q6H PRN PO .MOD PAIN 4- 6 Last administered on 01/09/19 09:06; Admin Dose 1 TAB; Start 12/31/18 at 18:30 Docusate Sodium (Colace) 100 mg Q12H PRN PO .CONSTIPATION; Start 12/31/18 at 18:30 Magnesium Hydroxide (Milk Of Mag) 30 ml DAILY PRN PO .CONSTIPATION; Start 12/31/18 at 18:30 Albuterol/ Ipratropium (Duoneb) 3 ml Q4H RESP THERAPY PRN HHN SHORTNESS OF BREATH Last administered on 01/09/19 19:19; Admin Dose 3 ML; Start 12/31/18 at 18:30 Hydralazine HCl (Apresoline) 10 mg Q6H PRN IV ELEVATED BLOOD PRESSURE; Start 12/31/18 at 18:30 Nitroglycerin (Nitroglycerin (Sl Tab) 0.4 Mg) 1 tab Q5M PRN SL ANGINA; Start 12/31/18 at 18:30 Guaifenesin (Robitussin Liquid Cup) 200 mg Q4H PRN PO COUGH Last administered on 01/11/19 11:33; Admin Dose 200 MG; Start 01/01/19 at 11:30 Ibuprofen (Motrin) 600 mg Q6H PRN PO MILD PAIN LEVEL 1-3 Last administered on 01/03/19 12:14; Admin Dose 600 MG; Start 01/01/19 at 17:30 Phenol (Cepastat Lozenge) 1 lozenge Q1H PRN MT COUGH Last administered on 01/09/19 09:06; Admin Dose 1 LOZENGE; Start 01/02/19 at 12:30 Famotidine (Pepcid) 20 mg DAILY PO Last administered on 01/11/19 08:39; Admin Dose 20 MG; Start 01/03/19 at 09:00 Levofloxacin (Levaquin) 750 mg DAILY@06 PO Last administered on 01/11/19 05:49; Admin Dose 750 MG; Start 01/08/19 at 06:00 Morphine Sulfate (morphine) 6 mg Q4H PRN PO SEVERE PAIN LEVEL 7-10 Last admi nistered on 01/11/19 11:33; Admin Dose 6 MG; Start 01/07/19 at 23:30 Ceftriaxone Sodium 50 ml @ 100 mls/hr Q24H IVPB Last administered on 01/10/19 14:13; Admin Dose 100 MLS/HR; Start 01/09/19 at 13:00 Levalbuterol (Xopenex Neb) 0.63 mg Q4H RESP THERAPY HHN Last administered on 01/11/19 12:16; Admin Dose 0.63 MG; Start 01/10/19 at 01:00 HAYLEE ENGLE NP Jan 11, 2019 12:46
[2019-01-11] MEDS: CEFTRIAXONE 1 GM/50 ML (PMX) 50 ML IVPB SCH (13:53)
[2019-01-11 14:24] VITALS: BP 117/76; PULSE 101; RESP 19
[2019-01-11] MEDS: VORICONAZOLE 200 MG TAB PO SCH ×2 (15:07→21:02)
--- NOTE | 2019-01-11 15:28 | CONS ---
Assessment/Plan Assessment/Plan Hospital Course (Demo Recall) IMPRESSION: 1. Bacteremia, assess for intracardiac source of infection, rule out endocarditis.- s/p MADINA 01/08 with chronic prior changes of TVR and nonspecific findings associated with pacer leads. No definite findings of vegetations. bLD CX'S 01/01 remain negative to date 2. History of permanent pacemaker. 3. History of tricuspid valve repair. 4. History of IV drug abuse with ongoing drug usage and toxicology positive for amphetamines and cannabinoids. 5. History of peptic ulcer disease. 6. Cough and hemoptysis.- s/p chest CT with cavitary lesions Recc: -tele -would f/u cx data as MADINA without definite findings of ongoing vegetations but with chronic changes and base further abx therapy upon the cx data -Contineu abx's and this time and has been started on voriconazole after chest CT findings -Pulmonary following Consultation Date/Type/Reason Admit Date/Time Dec 31, 2018 at 18:14 Initial Consult Date 01/08/19 Type of Consult Cardiology Reason for Consultation bacteremia Requesting Provider: ALEX CLARKE MD Date/Time of Note DATE: 01/11/19 TIME: 15:26 Exam/Review of Systems Vital Signs Vitals Vital Signs Date Temp Pulse Resp B/P (MAP) Pulse Ox O2 O2 Flow FiO2 Time Delivery Rate 01/11/19 98.2 101 19 117/76 94 Nasal 14:24 (90) Cannula 01/11/19 2.0 12:16 01/10/19 21 01:00 Intake and Output 01/10/19 01/10/19 01/11/19 1515:00 23:00 07:00 IntakeIntake Total 360 ml 850 ml 2040 ml OutputOutput Total 1725 ml 725 ml 2000 ml BalanceBalance -1365 ml 125 ml 40 ml Exam Exam Review of Systems: CONSTITUTIONAL: No fevers, chills. PULMONARY: No sob CARDIOVASCULAR: No chest pain/palpitations GASTROINTESTINAL: No nausea/vomiting. GENITOURINARY: No hematuria/dysuria. MUSCULOSKELETAL: No myagias/arthalgias. PSYCHIATRIC: The patient denies depression. NEUROLOGIC: No weakness Constitutional: alert Psych: no complaints Head: normocephalic ENMT: mucosa pink and moist Neck: supple, jvd (9 cm water) Respiratory: diminished breath sounds (at bases/B) Cardiovascular: regular rate and rhythm Gastrointestinal: soft, non-tender Musculoskeletal: muscle tone (normal) Extremities: edema (none) Neurological: other (No focal deficits) Labs Result Diagram: 01/11/19 0500 01/11/19 0500 Results 24hrs Laboratory Tests Test 01/11/19 05:00 White Blood Count 9.8 # Red Blood Count 3.52 L Hemoglobin 9.5 L Hematocrit 30.4 L Mean Corpuscular Volume 86.4 Mean Corpuscular Hemoglobin 27.0 L Mean Corpuscular Hemoglobin Concent 31.3 L Red Cell Distribution Width 15.9 H Platelet Count 258 Mean Platelet Volume 8.9 Immature Granulocytes % 1.400 H Neutrophils % 69.3 Lymphocytes % 16.5 Monocytes % 4.5 Eosinophils % 7.7 H Basophils % 0.6 Nucleated Red Blood Cells % 0.0 Immature Granulocytes # 0.140 H Neutrophils # 6.8 Lymphocytes # 1.6 Monocytes # 0.4 Eosinophils # 0.8 H Basophils # 0.1 Nucleated Red Blood Cells # 0.0 Sodium Level 138 Potassium Level 4.2 Chloride Level 101 Carbon Dioxide Level 29 Anion Gap 8 Blood Urea Nitrogen 11 Creatinine 0.92 Est Glomerular Filtrat Rate mL/min > 60 Glucose Level 98 Calcium Level 8.5 Phosphorus Level 4.9 Magnesium Level 1.8 Medications Medications Current Medications IV Flush (NS 3 ml) 3 ml PER PROTOCOL IV ; Start 12/31/18 at 18:30 Ondansetron HCl (Zofran Inj) 4 mg Q6H PRN IV NAUSEA/VOMITING Last administered on 01/10/19at 14:22; Admin Dose 4 MG; Start 12/31/18 at 18:30 Acetaminophen (Tylenol Tab) 650 mg Q6H PRN PO .PAIN 1-3 OR TEMP Last administered on 01/03/19at 11:17; Admin Dose 650 MG; Start 12/31/18 at 18:30 Acetaminophen/ Hydrocodone Bitart ([place] (5/325)) 1 tab Q6H PRN PO .MOD PAIN 4- 6 Last administered on 01/09/19at 09:06; Admin Dose 1 TAB; Start 12/31/18 at 18:30 Docusate Sodium (Colace) 100 mg Q12H PRN PO .CONSTIPATION; Start 12/31/18 at 18:30 Magnesium Hydroxide (Milk Of Mag) 30 ml DAILY PRN PO .CONSTIPATION; Start 12/31/18 at 18:30 Albuterol/ Ipratropium (Duoneb) 3 ml Q4H RESP THERAPY PRN HHN SHORTNESS OF BREATH Last administered on 01/09/19 19:19; Admin Dose 3 ML; Start 12/31/18 at 18:30 Hydralazine HCl (Apresoline) 10 mg Q6H PRN IV ELEVATED BLOOD PRESSURE; Start 12/31/18 at 18:30 Nitroglycerin (Nitroglycerin (Sl Tab) 0.4 Mg) 1 tab Q5M PRN SL ANGINA; Start 12/31/18 at 18:30 Guaifenesin (Robitussin Liquid Cup) 200 mg Q4H PRN PO COUGH Last administered on 01/11/19 11:33; Admin Dose 200 MG; Start 01/01/19 at 11:30 Ibuprofen (Motrin) 600 mg Q6H PRN PO MILD PAIN LEVEL 1-3 Last administered on 01/03/19 12:14; Admin Dose 600 MG; Start 01/01/19 at 17:30 Phenol (Cepastat Lozenge) 1 lozenge Q1H PRN MT COUGH Last administered on 01/09/19 09:06; Admin Dose 1 LOZENGE; Start 01/02/19 at 12:30 Famotidine (Pepcid) 20 mg DAILY PO Last administered on 01/11/19 08:39; Admin Dose 20 MG; Start 01/03/19 at 09:00 Levofloxacin (Levaquin) 750 mg DAILY@06 PO Last administered on 01/11/19 05:49; Admin Dose 750 MG; Start 01/08/19 at 06:00 Morphine Sulfate (morphine) 6 mg Q4H PRN PO SEVERE PAIN LEVEL 7-10 Last administered on 01/11/19 11:33; Admin Dose 6 MG; Start 01/07/19 at 23:30 Ceftriaxone Sodium 50 ml @ 100 mls/hr Q24H IVPB Last administered on 01/11/19 13:53; Admin Dose 100 MLS/HR; Start 01/09/19 at 13:00 Levalbuterol (Xopenex Neb) 0.63 mg Q4H RESP THERAPY HHN Last administered on 01/11/19 12:16; Admin Dose 0.63 MG; Start 01/10/19 at 01:00 Voriconazole (Vfend) 200 mg BID PO Last administered on 01/11/19at 15:07; Admin Dose 200 MG; Start 01/11/19 at 13:00 ALEX TRAN Jan 11, 2019 15:28
--- NOTE | 2019-01-11 16:33 | PN ---
Date/Time of Note Date/Time of Note DATE: 01/11/19 TIME: 16:30 Assessment/Plan VTE Prophylaxis Risk score (from Ns)>0 risk: 4 SCD applied (from Ns): Yes Pharmacological prophylaxis: NA/contraindicated Pharm contraindication: low risk/ambulating Lines/Catheters IV C[facility]ter Type [facility]from [facility] Lock Urinary Cath still in place: No Assessment/Plan Assessment/Plan 28-year-old man coming in with productive cough, possible hemoptysis for last 7 to 10 days prior to admission, with signs of leukocytosis and pneumonia with a prior history of IV drug abuse, endocarditis, pacemaker and pulmonary embolism and tricuspid valve repair. # Cough and hemoptysis #Hypoxia - Likely secondary to the pneumonia - Continues to have hemoptysis -Continue broad spectrum antibiotics, low-dose IV fluids, Tylenol p.r.n. pain and fevers. - Repeat CT chest with patchy infiltrates throughout; cavitary lesions which may represent old septic emboli. - Possible fungal balls. Pending crypto, cocci, aspergillus antibodies. - Dr. Mcduffie following # Bacteremia - Blood cultures growing 2/2 bottles corynebacteria - MADINA indeterminate for vegetations on tricuspid valve. - Plan for 4 weeks of ceftriaxone per ID recommendations. - Patient is homeless, so any course of IV antibiotics will likely need to be completed in hospital. 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 - counseled on cessation. # History of prior pacemaker. - Monitored for one week on tele. He does develop occasional V-paced tachycardia, asymptomatic - Transfer to med/surg # History of peptic ulcer disease - H2 sharona. Otherwise, no present issues. Result Diagram: 01/11/19 0500 01/11/19 0500 Subjective 24 Hr Interval Summary Free Text/Dictation No acute overnight events. Continues to have cough with occasional sputum. Patient reports possible nighttime desaturations, but none documented. Exam/Review of Systems Exam Vitals Vital Signs Date Temp Pulse Resp B/P (MAP) Pulse Ox O2 O2 Flow FiO2 Time Delivery Rate 01/11/19 92 20 94 Nasal 2.0 16:20 Cannula 01/11/19 98.2 117/76 14:24 (90) 01/10/19 21 01:00 Intake and Output 01/10/19 01/10/19 01/11/19 1515:00 23:00 07:00 IntakeIntake Total 360 ml 850 ml 2040 ml OutputOutput Total 1725 ml 725 ml 2000 ml BalanceBalance -1365 ml 125 ml 40 ml Exam GENERAL: lying in bed, no acute distress HEENT: Pupils are equal, round, react to light. Extraocular muscles are intact. NECK: Supple. No thyromegaly. LUNGS: Distant breath sounds bilaterally. Crackles in bilateral lung bases. CARDIOVASCULAR: S1, S2 heard. No rubs or gallops. ABDOMEN: Soft, nontender, nondistended. Normal bowel sounds. No rebound or guarding. MUSCULOSKELETAL: No lower extremity edema bilaterally. Results Results 24hrs Laboratory Tests Test 01/11/19 05:00 White Blood Count 9.8 # Red Blood Count 3.52 L Hemoglobin 9.5 L Hematocrit 30.4 L Mean Corpuscular Volume 86.4 Mean Corpuscular Hemoglobin 27.0 L Mean Corpuscular Hemoglobin Concent 31.3 L Red Cell Distribution Width 15.9 H Platelet Count 258 Mean Platelet Volume 8.9 Immature Granulocytes % 1.400 H Neutrophils % 69.3 Lymphocytes % 16.5 Monocytes % 4.5 Eosinophils % 7.7 H Basophils % 0.6 Nucleated Red Blood Cells % 0.0 Immature Granulocytes # 0.140 H Neutrophils # 6.8 Lymphocytes # 1.6 Monocytes # 0.4 Eosinophils # 0.8 H Basophils # 0.1 Nucleated Red Blood Cells # 0.0 Sodium Level 138 Potassium Level 4.2 Chloride Level 101 Carbon Dioxide Level 29 Anion Gap 8 Blood Urea Nitrogen 11 Creatinine 0.92 Est Glomerular Filtrat Rate mL/min > 60 Glucose Level 98 Calcium Level 8.5 Phosphorus Level 4.9 Magnesium Level 1.8 Medications Medication Current Medications IV Flush (NS 3 ml) 3 ml PER PROTOCOL IV ; Start 12/31/18 at 18:30 Ondansetron HCl (Zofran Inj) 4 mg Q6H PRN IV NAUSEA/VOMITING Last administered on 01/10/19at 14:22; Admin Dose 4 MG; Start 12/31/18 at 18:30 Acetaminophen (Tylenol Tab) 650 mg Q6H PRN PO .PAIN 1-3 OR TEMP Last administered on 01/03/19at 11:17; Admin Dose 650 MG; Start 12/31/18 at 18:30 Acetaminophen/ Hydrocodone Bitart ([place] (5/325)) 1 tab Q6H PRN PO .MOD PAIN 4-6 Last administered on 01/09/19 09:06; Admin Dose 1 TAB; Start 12/31/18 at 18:30 Docusate Sodium (Colace) 100 mg Q12H PRN PO .CONSTIPATION; Start 12/31/18 at 18:30 Magnesium Hydroxide (Milk Of Mag) 30 ml DAILY PRN PO .CONSTIPATION; Start 12/31/18 at 18:30 Albuterol/ Ipratropium (Duoneb) 3 ml Q4H RESP THERAPY PRN HHN SHORTNESS OF BREATH Last administered on 01/09/19 19:19; Admin Dose 3 ML; Start 12/31/18 at 18:30 Hydralazine HCl (Apresoline) 10 mg Q6H PRN IV ELEVATED BLOOD PRESSURE; Start 12/31/18 at 18:30 Nitroglycerin (Nitroglycerin (Sl Tab) 0.4 Mg) 1 tab Q5M PRN SL ANGINA; Start 12/31/18 at 18:30 Guaifenesin (Robitussin Liquid Cup) 200 mg Q4H PRN PO COUGH Last administered on 01/11/19 16:18; Admin Dose 200 MG; Start 01/01/19 at 11:30 Ibuprofen (Motrin) 600 mg Q6H PRN PO MILD PAIN LEVEL 1-3 Last administered on 01/03/19 12:14; Admin Dose 600 MG; Start 01/01/19 at 17:30 Phenol (Cepastat Lozenge) 1 lozenge Q1H PRN MT COUGH Last administered on 01/09/19 09:06; Admin Dose 1 LOZENGE; Start 01/02/19 at 12:30 Famotidine (Pepcid) 20 mg DAILY PO Last administered on 01/11/19 08:39; Admin Dose 20 MG; Start 01/03/19 at 09:00 Levofloxacin (Levaquin) 750 mg DAILY@06 PO Last administered on 01/11/19 05:49; Admin Dose 750 MG; Start 01/08/19 at 06:00 Morphine Sulfate (morphine) 6 mg Q4H PRN PO SEVERE PAIN LEVEL 7-10 Last administered on 01/11/19 11:33; Admin Dose 6 MG; Start 01/07/19 at 23:30 Ceftriaxone Sodium 50 ml @ 100 mls/hr Q24H IVPB Last administered on 01/11/19at 13:53; Admin Dose 100 MLS/HR; Start 01/09/19 at 13:00 Levalbuterol (Xopenex Neb) 0.63 mg Q4H RESP THERAPY HHN Last administered on 01/11/19at 16:20; Admin Dose 0.63 MG; Start 01/10/19 at 01:00 Voriconazole (Vfend) 200 mg BID PO Last administered on 01/11/19at 15:07; Admin Dose 200 MG; Start 01/11/19 at 13:00 ALEX CLARKE MD Jan 11, 2019 16:33
[2019-01-11 19:50] VITALS: BP 119/78; PULSE 95; RESP 16
[2019-01-12] MEDS: GUAIFENESIN 20 MG/ML 5ML CUP PO PRN ×4 (01:33→18:01)
[2019-01-12 01:34] VITALS: BP 131/90; PULSE 77; RESP 16
[2019-01-12] MEDS: LEVALBUTEROL (NEB) 0.63 MG/3 ML AMP HHN SCH ×6 (01:47→20:00)
[2019-01-12] MEDS: morphine LIQ (10 MG/5 ML) CUP PO PRN ×3 (06:15→18:02)
[2019-01-12] MEDS: LEVOFLOXACIN 750 MG TABLET PO SCH (06:15)
[2019-01-12 07:33] VITALS: BP 118/73; PULSE 92; RESP 18
[2019-01-12] MEDS: FAMOTIDINE 20 MG TAB PO SCH (08:38)
[2019-01-12] MEDS: VORICONAZOLE 200 MG TAB PO SCH ×2 (08:38→20:09)
--- NOTE | 2019-01-12 10:39 | CONS ---
Consult Date/Type/Reason Admit Date/Time Dec 31, 2018 at 18:14 Initial Consult Date Type of Consult Pulmonary Requesting Provider: ALEX CLARKE MD Date/Time of Note DATE: 01/12/19 TIME: 10:38 Subjective Comfortable this morning no respiratory distress. Objective Vital Signs Date Temp Pulse Resp B/P (MAP) Pulse Ox O2 O2 Flow FiO2 Time Delivery Rate 01/12/19 88 18 93 Nasal 2.0 08:59 Cannula 01/12/19 98.2 118/73 07:33 (88) 01/10/19 21 01:00 Intake and Output 01/11/19 01/11/19 01/12/19 1515:00 23:00 07:00 IntakeIntake Total 1200 ml 1610 ml OutputOutput Total 2725 ml 1500 ml 400 ml BalanceBalance -1525 ml 110 ml -400 ml Exam GENERAL: Well-nourished well-developed gentleman comfortable at rest VITAL SIGNS: per chart NECK: Supple. No JVD or lymphadenopathy. CARDIAC EXAM: S1, S2. No added sounds or murmurs. CHEST: clear bilaterally, No added sounds, rales or wheezes ABDOMEN: Soft, nontender. No guarding or rebound. EXTREMITIES: No cyanosis, clubbing or edema. NEUROLOGIC: Generalized weakness. No focal deficits. Vent Setting Fraction of Inspired Oxygen pe: 21 Results/Medications Result Diagram: 01/12/19 0516 01/12/19 0516 Results 24 hrs Laboratory Tests Test 01/12/19 05:16 White Blood Count 10.0 Red Blood Count 3.68 L Hemoglobin 9.9 L Hematocrit 31.7 L Mean Corpuscular Volume 86.1 Mean Corpuscular Hemoglobin 26.9 L Mean Corpuscular Hemoglobin Concent 31.2 L Red Cell Distribution Width 15.6 H Platelet Count 268 Mean Platelet Volume 9.1 Immature Granulocytes % 1.200 H Neutrophils % 71.7 Lymphocytes % 14.4 L Monocytes % 4.8 Eosinophils % 7.4 H Basophils % 0.5 Nucleated Red Blood Cells % 0.0 Immature Granulocytes # 0.120 H Neutrophils # 7.2 Lymphocytes # 1.4 Monocytes # 0.5 Eosinophils # 0.7 H Basophils # 0.1 Nucleated Red Blood Cells # 0.0 Sodium Level 140 Potassium Level 4.4 Chloride Level 101 Carbon Dioxide Level 30 Anion Gap 9 Blood Urea Nitrogen 13 Creatinine 0.83 Est Glomerular Filtrat Rate mL/min > 60 Glucose Level 113 Calcium Level 9.0 Medications Current Medications IV Flush (NS 3 ml) 3 ml PER PROTOCOL IV ; Start 12/31/18 at 18:30 Ondansetron HCl (Zofran Inj) 4 mg Q6H PRN IV NAUSEA/VOMITING Last administered on 01/10/19 14:22; Admin Dose 4 MG; Start 12/31/18 at 18:30 Acetaminophen (Tylenol Tab) 650 mg Q6H PRN PO .PAIN 1-3 OR TEMP Last administered on 01/03/19 11:17; Admin Dose 650 MG; Start 12/31/18 at 18:30 Acetaminophen/ Hydrocodone Bitart ([place] (5/325)) 1 tab Q6H PRN PO .MOD PAIN 4- 6 Last administered on 01/09/19 09:06; Admin Dose 1 TAB; Start 12/31/18 at 18:30 Docusate Sodium (Colace) 100 mg Q12H PRN PO .CONSTIPATION; Start 12/31/18 at 18:30 Magnesium Hydroxide (Milk Of Mag) 30 ml DAILY PRN PO .CONSTIPATION; Start at 18:30 Albuterol/ Ipratropium (Duoneb) 3 ml Q4H RESP THERAPY PRN HHN SHORTNESS OF BREATH Last administered on 01/09/19 19:19; Admin Dose 3 ML; Start 12/31/18 at 18:30 Hydralazine HCl (Apresoline) 10 mg Q6H PRN IV ELEVATED BLOOD PRESSURE; Start 12/31/18 at 18:30 Nitroglycerin (Nitroglycerin (Sl Tab) 0.4 Mg) 1 tab Q5M PRN SL ANGINA; Start 12/31/18 at 18:30 Guaifenesin (Robitussin Liquid Cup) 200 mg Q4H PRN PO COUGH Last administered on 01/12/19 06:15; Admin Dose 200 MG; Start 01/01/19 at 11:30 Ibuprofen (Motrin) 600 mg Q6H PRN PO MILD PAIN LEVEL 1-3 Last administered on 01/03/19 12:14; Admin Dose 600 MG; Start 01/01/19 at 17:30 Phenol (Cepastat Lozenge) 1 lozenge Q1H PRN MT COUGH Last administered on 01/09/19 09:06; Admin Dose 1 LOZENGE; Start 01/02/19 at 12:30 Famotidine (Pepcid) 20 mg DAILY PO Last administered on 01/12/19 08:38; Admin Dose 20 MG; Start 01/03/19 at 09:00 Levofloxacin (Levaquin) 750 mg DAILY@06 PO Last administered on 01/12/19 06:15; Admin Dose 750 MG; Start 01/08/19 at 06:00 Morphine Sulfate (morphine) 6 mg Q4H PRN PO SEVERE PAIN LEVEL 7-10 Last ad ministered on 01/12/19 06:15; Admin Dose 6 MG; Start 01/07/19 at 23:30 Ceftriaxone Sodium 50 ml @ 100 mls/hr Q24H IVPB Last administered on 01/11/19 13:53; Admin Dose 100 MLS/HR; Start 01/09/19 at 13:00 Levalbuterol (Xopenex Neb) 0.63 mg Q4H RESP THERAPY HHN Last administered on 01/12/19 08:59; Admin Dose 0.63 MG; Start 01/10/19 at 01:00 Voriconazole (Vfend) 200 mg BID PO Last administered on 01/12/19 08:38; Admin Dose 200 MG; Start 01/11/19 at 13:00 Assessment/Plan Hospital Course (Demo Recall) IMPRESSION 1. Recurrent hemoptysis multiple thin-walled cavities suggestive of prior septic emboli and evidence of possible fungal infiltration also. 2. Intravenous drug abuse. 3. Possible infective endocarditis with positive blood cultures. Recommendations 1. Consider empiric treatment for fungal infection possible aspergillosis/aspergilloma 2. Continue antibiotics per infectious diseases. 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 4. DVT and GI prophylaxis. 5. Discussed with ID re-empiric antifungal treatment. CAROLINA BEATTY MD, [facility] Jan 12, 2019 10:39
[2019-01-12] MEDS: CEFTRIAXONE 1 GM/50 ML (PMX) 50 ML IVPB SCH (12:33)
[2019-01-12 14:17] VITALS: BP 116/74; PULSE 83; RESP 19
--- NOTE | 2019-01-12 14:37 | CONS ---
Assessment/Plan Assessment/Plan Hospital Course (Demo Recall) Alert, comfortable on 2 L nasal cannula, hemoptysis resolving, no fevers Microbiology: Blood culture on admission grew Corynebacterium species. Repeat blood cultures on January 01 and January 11 negative HIV serology negative. Chest x-ray on admission revealed focal left lower lobe infiltrate. Mild right midlung atelectasis. Antimicrobials: Levaquin, Cefepime, Vfend. Assessment: 1. S/p sepsis present on admission, resolving 2. Community-acquired pneumonia with repeat CT notes multiple thin-walled cavities dense infiltrates and possible mycetoma. 3. Hemoptysis 4. History of endocarditis==> MADINA neg 5. IV drug abuse 6. Coronary artery disease with a history of tricuspid valve replacement and permanent pacemaker placement 6. Bacteremia cw contaminant Plan: Stable, continue abx, f/u pulmonary recommendations and cocci Consultation Date/Type/Reason Admit Date/Time Dec 31, 2018 at 18:14 Initial Consult Date Type of Consult id Requesting Provider: ALEX CLARKE MD Date/Time of Note DATE: 01/12/19 TIME: 14:35 Exam/Review of Systems Exam Vitals Vital Signs Date Temp Pulse Resp B/P (MAP) Pulse Ox O2 O2 Flow FiO2 Time Delivery Rate 01/12/19 98.4 83 19 116/74 95 Nasal 14:17 (88) Cannula 01/12/19 2.0 13:15 01/10/19 21 01:00 Intake and Output 01/11/19 01/11/19 01/12/19 1515:00 23:00 07:00 IntakeIntake Total 1200 ml 1610 ml OutputOutput Total 2725 ml 1500 ml 400 ml BalanceBalance -1525 ml 110 ml -400 ml Results Result Diagram: 01/12/19 0516 01/12/19 0516 Results 24hrs Laboratory Tests Test 01/12/19 05:16 White Blood Count 10.0 Red Blood Count 3.68 L Hemoglobin 9.9 L Hematocrit 31.7 L Mean Corpuscular Volume 86.1 Mean Corpuscular Hemoglobin 26.9 L Mean Corpuscular Hemoglobin Concent 31.2 L Red Cell Distribution Width 15.6 H Platelet Count 268 Mean Platelet Volume 9.1 Immature Granulocytes % 1.200 H Neutrophils % 71.7 Lymphocytes % 14.4 L Monocytes % 4.8 Eosinophils % 7.4 H Basophils % 0.5 Nucleated Red Blood Cells % 0.0 Immature Granulocytes # 0.120 H Neutrophils # 7.2 Lymphocytes # 1.4 Monocytes # 0.5 Eosinophils # 0.7 H Basophils # 0.1 Nucleated Red Blood Cells # 0.0 Sodium Level 140 Potassium Level 4.4 Chloride Level 101 Carbon Dioxide Level 30 Anion Gap 9 Blood Urea Nitrogen 13 Creatinine 0.83 Est Glomerular Filtrat Rate mL/min > 60 Glucose Level 113 Calcium Level 9.0 Medications Medication Current Medications IV Flush (NS 3 ml) 3 ml PER PROTOCOL IV ; Start 12/31/18 at 18:30 Ondansetron HCl (Zofran Inj) 4 mg Q6H PRN IV NAUSEA/VOMITING Last administered on 01/10/19 14:22; Admin Dose 4 MG; Start 12/31/18 at 18:30 Acetaminophen (Tylenol Tab) 650 mg Q6H PRN PO .PAIN 1-3 OR TEMP Last administered on 01/03/19 11:17; Admin Dose 650 MG; Start 12/31/18 at 18:30 Acetaminophen/ Hydrocodone Bitart ([place] (5/325)) 1 tab Q6H PRN PO .MOD PAIN 4- 6 Last administered on 01/09/19 09:06; Admin Dose 1 TAB; Start 12/31/18 at 18:30 Docusate Sodium (Colace) 100 mg Q12H PRN PO .CONSTIPATION; Start 12/31/18 at 18:30 Magnesium Hydroxide (Milk Of Mag) 30 ml DAILY PRN PO .CONSTIPATION; Start 12/31/18 at 18:30 Albuterol/ Ipratropium (Duoneb) 3 ml Q4H RESP THERAPY PRN HHN SHORTNESS OF BREATH Last administered on 01/09/19 19:19; Admin Dose 3 ML; Start 12/31/18 at 18:30 Hydralazine HCl (Apresoline) 10 mg Q6H PRN IV ELEVATED BLOOD PRESSURE; Start 12/31/18 at 18:30 Nitroglycerin (Nitroglycerin (Sl Tab) 0.4 Mg) 1 tab Q5M PRN SL ANGINA; Start 12/31/18 at 18:30 Guaifenesin (Robitussin Liquid Cup) 200 mg Q4H PRN PO COUGH Last administered on 01/12/19 12:46; Admin Dose 200 MG; Start 01/01/19 at 11:30 Ibuprofen (Motrin) 600 mg Q6H PRN PO MILD PAIN LEVEL 1-3 Last administered on 01/03/19 12:14; Admin Dose 600 MG; Start 01/01/19 at 17:30 Phenol (Cepastat Lozenge) 1 lozenge Q1H PRN MT COUGH Last administered on 01/09/19 09:06; Admin Dose 1 LOZENGE; Start 01/02/19 at 12:30 Famotidine (Pepcid) 20 mg DAILY PO Last administered on 01/12/19 08:38; Admin Dose 20 MG; Start 01/03/19 at 09:00 Levofloxacin (Levaquin) 750 mg DAILY@06 PO Last administered on 01/12/19 06:15; Admin Dose 750 MG; Start 01/08/19 at 06:00 Morphine Sulfate (morphine) 6 mg Q4H PRN PO SEVERE PAIN LEVEL 7-10 Last administered on 01/12/19 12:46; Admin Dose 6 MG; Start 01/07/19 at 23:30 Ceftriaxone Sodium 50 ml @ 100 mls/hr Q24H IVPB Last administered on 01/12/19 12:33; Admin Dose 100 MLS/HR; Start 01/09/19 at 13:00 Levalbuterol (Xopenex Neb) 0.63 mg Q4H RESP THERAPY HHN Last administered on 01/12/19 13:14; Admin Dose 0.63 MG; Start 01/10/19 at 01:00 Voriconazole (Vfend) 200 mg BID PO Last administered on 01/12/19 08:38; Admin Dose 200 MG; Start 01/11/19 at 13:00 HAYLEE ENGLE NP Jan 12, 2019 14:37
--- NOTE | 2019-01-12 16:15 | CONS ---
Assessment/Plan Assessment/Plan Hospital Course (Demo Recall) IMPRESSION: 1. Bacteremia, assess for intracardiac source of infection, rule out endocarditis.- s/p MADINA 01/08 with chronic prior changes of TVR and nonspecific findings associated with pacer leads. No definite findings of vegetations. bLD CX'S 01/01 remain negative to date 2. History of permanent pacemaker. 3. History of tricuspid valve repair. 4. History of IV drug abuse with ongoing drug usage and toxicology positive for amphetamines and cannabinoids. 5. History of peptic ulcer disease. 6. Cough and hemoptysis.- s/p chest CT with cavitary lesions Recc: -tele -would f/u cx data as MADINA without definite findings of ongoing vegetations but with chronic changes and base further abx therapy upon the cx data -Contineu abx's and this time and has been started on voriconazole after chest CT findings -Pulmonary following Consultation Date/Type/Reason Admit Date/Time Dec 31, 2018 at 18:14 Initial Consult Date 01/08/19 Type of Consult Cardiology Reason for Consultation bacteremia Requesting Provider: ALEX CLARKE MD Date/Time of Note DATE: 01/12/19 TIME: 16:14 Exam/Review of Systems Vital Signs Vitals Vital Signs Date Temp Pulse Resp B/P (MAP) Pulse Ox O2 O2 Flow FiO2 Time Delivery Rate 01/12/19 98.4 83 19 116/74 95 Nasal 14:17 (88) Cannula 01/12/19 2.0 13:15 01/10/19 21 01:00 Intake and Output 01/11/19 01/11/19 01/12/19 1414:59 22:59 06:59 IntakeIntake Total 1200 ml 1610 ml OutputOutput Total 2725 ml 1500 ml 400 ml BalanceBalance -1525 ml 110 ml -400 ml Exam Exam Review of Systems: CONSTITUTIONAL: No fevers, chills. PULMONARY: No sob CARDIOVASCULAR: No chest pain/palpitations GASTROINTESTINAL: No nausea/vomiting. GENITOURINARY: No hematuria/dysuria. MUSCULOSKELETAL: No myagias/arthalgias. PSYCHIATRIC: The patient denies depression. NEUROLOGIC: No weakness Constitutional: alert Psych: no complaints Head: normocephalic ENMT: mucosa pink and moist Neck: supple, jvd (9 cm water) Respiratory: clear to auscultation Cardiovascular: regular rate and rhythm Gastrointestinal: soft, non-tender Musculoskeletal: muscle tone (normal) Extremities: edema (none) Neurological: other (No focal deficits) Labs Result Diagram: 01/12/1916 01/12/19 0516 Results 24hrs Laboratory Tests Test 01/12/19 05:16 White Blood Count 10.0 Red Blood Count 3.68 L Hemoglobin 9.9 L Hematocrit 31.7 L Mean Corpuscular Volume 86.1 Mean Corpuscular Hemoglobin 26.9 L Mean Corpuscular Hemoglobin Concent 31.2 L Red Cell Distribution Width 15.6 H Platelet Count 268 Mean Platelet Volume 9.1 Immature Granulocytes % 1.200 H Neutrophils % 71.7 Lymphocytes % 14.4 L Monocytes % 4.8 Eosinophils % 7.4 H Basophils % 0.5 Nucleated Red Blood Cells % 0.0 Immature Granulocytes # 0.120 H Neutrophils # 7.2 Lymphocytes # 1.4 Monocytes # 0.5 Eosinophils # 0.7 H Basophils # 0.1 Nucleated Red Blood Cells # 0.0 Sodium Level 140 Potassium Level 4.4 Chloride Level 101 Carbon Dioxide Level 30 Anion Gap 9 Blood Urea Nitrogen 13 Creatinine 0.83 Est Glomerular Filtrat Rate mL/min > 60 Glucose Level 113 Calcium Level 9.0 Medications Medications Current Medications IV Flush (NS 3 ml) 3 ml PER PROTOCOL IV ; Start 12/31/18 at 18:30 Ondansetron HCl (Zofran Inj) 4 mg Q6H PRN IV NAUSEA/VOMITING Last administered on 01/10/19 14:22; Admin Dose 4 MG; Start 12/31/18 at 18:30 Acetaminophen (Tylenol Tab) 650 mg Q6H PRN PO .PAIN 1-3 OR TEMP Last administered on 01/03/19at 11:17; Admin Dose 650 MG; Start 12/31/18 at 18:30 Acetaminophen/ Hydrocodone Bitart ([place] (5/325)) 1 tab Q6H PRN PO .MOD PAIN 4- 6 Last administered on 01/09/19 09:06; Admin Dose 1 TAB; Start 12/31/18 at 18:30 Docusate Sodium (Colace) 100 mg Q12H PRN PO .CONSTIPATION; Start 12/31/18 at 18:30 Magnesium Hydroxide (Milk Of Mag) 30 ml DAILY PRN PO .CONSTIPATION; Start 12/31/18 at 18:30 Albuterol/ Ipratropium (Duoneb) 3 ml Q4H RESP THERAPY PRN HHN SHORTNESS OF [place] TH Last administered on 01/09/19 19:19; Admin Dose 3 ML; Start 12/31/18 at 18:30 Hydralazine HCl (Apresoline) 10 mg Q6H PRN IV ELEVATED BLOOD PRESSURE; Start 12/31/18 at 18:30 Nitroglycerin (Nitroglycerin (Sl Tab) 0.4 Mg) 1 tab Q5M PRN SL ANGINA; Start 12/31/18 at 18:30 Guaifenesin (Robitussin Liquid Cup) 200 mg Q4H PRN PO COUGH Last administered on 01/12/19 12:46; Admin Dose 200 MG; Start 01/01/19 at 11:30 Ibuprofen (Motrin) 600 mg Q6H PRN PO MILD PAIN LEVEL 1-3 Last administered on 01/03/19 12:14; Admin Dose 600 MG; Start 01/01/19 at 17:30 Phenol (Cepastat Lozenge) 1 lozenge Q1H PRN MT COUGH Last administered on 01/09/19 09:06; Admin Dose 1 LOZENGE; Start 01/02/19 at 12:30 Famotidine (Pepcid) 20 mg DAILY PO Last administered on 01/12/19 08:38; Admin Dose 20 MG; Start 01/03/19 at 09:00 Levofloxacin (Levaquin) 750 mg DAILY@06 PO Last administered on 01/12/19 06:15; Admin Dose 750 MG; Start 01/08/19 at 06:00 Morphine Sulfate (morphine) 6 mg Q4H PRN PO SEVERE PAIN LEVEL 7-10 Last administered on 01/12/19 12:46; Admin Dose 6 MG; Start 01/07/19 at 23:30 Ceftriaxone Sodium 50 ml @ 100 mls/hr Q24H IVPB Last administered on 01/12/19 12:33; Admin Dose 100 MLS/HR; Start 01/09/19 at 13:00 Levalbuterol (Xopenex Neb) 0.63 mg Q4H RESP THERAPY HHN Last administered on 01/12/19 13:14; Admin Dose 0.63 MG; Start 01/10/19 at 01:00 Voriconazole (Vfend) 200 mg BID PO Last administered on 01/12/19at 08:38; Admin Dose 200 MG; Start 01/11/19 at 13:00 ALEX TRAN Jan 12, 2019 16:15
--- NOTE | 2019-01-12 16:16 | PN ---
Date/Time of Note Date/Time of Note DATE: 01/12/19 TIME: 16:14 Assessment/Plan VTE Prophylaxis Risk score (from Ns)>0 risk: 4 SCD applied (from Ns): Yes Pharmacological prophylaxis: NA/contraindicated Pharm contraindication: low risk/ambulating Lines/Catheters IV C[facility]ter Type [facility]from [facility] Sal[facility] Lock Urinary Cath still in place: No Assessment/Plan Assessment/Plan 28-year-old man coming in with productive cough, possible hemoptysis for last 7 to 10 days prior to admission, with signs of leukocytosis and pneumonia with a prior history of IV drug abuse, endocarditis, pacemaker and pulmonary embolism and tricuspid valve repair. # Cough and hemoptysis #Hypoxia - Hypoxia persistent; patient has required nasal cannula for a week now. - Hemoptysis now resolving -Continue broad spectrum antibiotics, low-dose IV fluids, Tylenol p.r.n. pain and fevers. - Repeat CT chest with patchy infiltrates throughout; cavitary lesions which may represent old septic emboli. - Possible fungal balls. Pending crypto, cocci, aspergillus antibodies. - Dr. Mcduffie following # Bacteremia - Blood cultures growing 2/2 bottles corynebacteria - MADINA indeterminate for vegetations on tricuspid valve. - Plan for 4 weeks of ceftriaxone per ID recommendations. - Patient is homeless, so any course of IV antibiotics will likely need to be completed in hospital. 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 - counseled on cessation. # History of prior pacemaker. - Monitored for one week on tele. He does develop occasional V-paced tachycardia, asymptomatic - Transfer to med/surg # History of peptic ulcer disease - H2 sharona. Otherwise, no present issues. Result Diagram: 01/12/1916 01/12/19515 Subjective 24 Hr Interval Summary Free Text/Dictation No acute overnight events. Patient ambulating on room air but gets dyspneic quickly, needs to go back on nasal cannula. Cough is improving. Exam/Review of Systems Exam Vitals Vital Signs Date Temp Pulse Resp B/P (MAP) Pulse Ox O2 O2 Flow FiO2 Time Delivery Rate 01/12/19 98.4 83 19 116/74 95 Nasal 14:17 (88) Cannula 01/12/19 2.0 13:15 01/10/19 21 01:00 Intake and Output 01/11/19 01/11/19 01/12/19 1515:00 23:00 07:00 IntakeIntake Total 1200 ml 1610 ml OutputOutput Total 2725 ml 1500 ml 400 ml BalanceBalance -1525 ml 110 ml -400 ml Exam GENERAL: lying in bed, no acute distress HEENT: Pupils are equal, round, react to light. Extraocular muscles are intact. NECK: Supple. No thyromegaly. LUNGS: Distant breath sounds bilaterally. Crackles in bilateral lung bases. CARDIOVASCULAR: S1, S2 heard. No rubs or gallops. ABDOMEN: Soft, nontender, nondistended. Normal bowel sounds. No rebound or guarding. MUSCULOSKELETAL: No lower extremity edema bilaterally. Results Results 24hrs Laboratory Tests Test 01/12/19 05:16 White Blood Count 10.0 Red Blood Count 3.68 L Hemoglobin 9.9 L Hematocrit 31.7 L Mean Corpuscular Volume 86.1 Mean Corpuscular Hemoglobin 26.9 L Mean Corpuscular Hemoglobin Concent 31.2 L Red Cell Distribution Width 15.6 H Platelet Count 268 Mean Platelet Volume 9.1 Immature Granulocytes % 1.200 H Neutrophils % 71.7 Lymphocytes % 14.4 L Monocytes % 4.8 Eosinophils % 7.4 H Basophils % 0.5 Nucleated Red Blood Cells % 0.0 Immature Granulocytes # 0.120 H Neutrophils # 7.2 Lymphocytes # 1.4 Monocytes # 0.5 Eosinophils # 0.7 H Basophils # 0.1 Nucleated Red Blood Cells # 0.0 Sodium Level 140 Potassium Level 4.4 Chloride Level 101 Carbon Dioxide Level 30 Anion Gap 9 Blood Urea Nitrogen 13 Creatinine 0.83 Est Glomerular Filtrat Rate mL/min > 60 Glucose Level 113 Calcium Level 9.0 Medications Medication Current Medications IV Flush (NS 3 ml) 3 ml PER PROTOCOL IV ; Start 12/31/18 at 18:30 Ondansetron HCl (Zofran Inj) 4 mg Q6H PRN IV NAUSEA/VOMITING Last administered on 01/10/19at 14:22; Admin Dose 4 MG; Start 12/31/18 at 18:30 Acetaminophen (Tylenol Tab) 650 mg Q6H PRN PO .PAIN 1-3 OR TEMP Last administered on 01/03/19at 11:17; Admin Dose 650 MG; Start 12/31/18 at 18:30 Acetaminophen/ Hydrocodone Bitart ([place] (5/325)) 1 tab Q6H PRN PO .MOD PAIN 4- 6 Last administered on 01/09/19 09:06; Admin Dose 1 TAB; Start 12/31/18 at 18:30 Docusate Sodium (Colace) 100 mg Q12H PRN PO .CONSTIPATION; Start 12/31/18 at 18:30 Magnesium Hydroxide (Milk Of Mag) 30 ml DAILY PRN PO .CONSTIPATION; Start 12/31/18 at 18:30 Albuterol/ Ipratropium (Duoneb) 3 ml Q4H RESP THERAPY PRN HHN SHORTNESS OF BREATH Last administered on 01/09/19 19:19; Admin Dose 3 ML; Start 12/31/18 at 18:30 Hydralazine HCl (Apresoline) 10 mg Q6H PRN IV ELEVATED BLOOD PRESSURE; Start 12/31/18 at 18:30 Nitroglycerin (Nitroglycerin (Sl Tab) 0.4 Mg) 1 tab Q5M PRN SL ANGINA; Start 12/31/18 at 18:30 Guaifenesin (Robitussin Liquid Cup) 200 mg Q4H PRN PO COUGH Last administered on 01/12/19 12:46; Admin Dose 200 MG; Start 01/01/19 at 11:30 Ibuprofen (Motrin) 600 mg Q6H PRN PO MILD PAIN LEVEL 1-3 Last administered on 01/03/19 12:14; Admin Dose 600 MG; Start 01/01/19 at 17:30 Phenol (Cepastat Lozenge) 1 lozenge Q1H PRN MT COUGH Last administered on 01/09/19 09:06; Admin Dose 1 LOZENGE; Start 01/02/19 at 12:30 Famotidine (Pepcid) 20 mg DAILY PO Last administered on 01/12/19 08:38; Admin Dose 20 MG; Start 01/03/19 at 09:00 Levofloxacin (Levaquin) 750 mg DAILY@06 PO Last administered on 01/12/19 06:15; Admin Dose 750 MG; Start 01/08/19 at 06:00 Morphine Sulfate (morphine) 6 mg Q4H PRN PO SEVERE PAIN LEVEL 7-10 Last administered on 01/12/19 12:46; Admin Dose 6 MG; Start 01/07/19 at 23:30 Ceftriaxone Sodium 50 ml @ 100 mls/hr Q24H IVPB Last administered on 01/12/19at 12:33; Admin Dose 100 MLS/HR; Start 01/09/19 at 13:00 Levalbuterol (Xopenex Neb) 0.63 mg Q4H RESP THERAPY HHN Last administered on 01/12/19at 13:14; Admin Dose 0.63 MG; Start 01/10/19 at 01:00 Voriconazole (Vfend) 200 mg BID PO Last administered on 01/12/19at 08:38; Admin Dose 200 MG; Start 01/11/19 at 13:00 ALEX CLARKE MD Jan 12, 2019 16:16
[2019-01-12 19:32] VITALS: BP 128/79; PULSE 90; RESP 18
[2019-01-13] MEDS: morphine LIQ (10 MG/5 ML) CUP PO PRN ×5 (00:10→23:40)
[2019-01-13] MEDS: GUAIFENESIN 20 MG/ML 5ML CUP PO PRN ×5 (00:10→23:41)
[2019-01-13] MEDS: LEVALBUTEROL (NEB) 0.63 MG/3 ML AMP HHN SCH ×6 (01:30→20:31)
[2019-01-13 01:46] VITALS: BP 141/81; PULSE 97; RESP 18
[2019-01-13] MEDS: LEVOFLOXACIN 750 MG TABLET PO SCH (06:07)
[2019-01-13 07:27] VITALS: BP 126/83; PULSE 87; RESP 20
[2019-01-13] MEDS: VORICONAZOLE 200 MG TAB PO SCH ×2 (08:28→20:56)
[2019-01-13] MEDS: FAMOTIDINE 20 MG TAB PO SCH (08:28)
--- NOTE | 2019-01-13 10:40 | CONS ---
Assessment/Plan Assessment/Plan Assessment/Plan (Daily) Assessment and recommendations; 1. Patient admitted with bilateral pneumonia likely septic embolism to lungs with micro cavitation. Currently on appropriate antimicrobial and antifungal regimen. 2. 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 Difficult to rule out superimposed endocarditis. 3. History of intravenous drug abuse. 4. History of cardiac arrhythmia, status post pacemaker placement. 5. Anemia. Continue current supportive care. Will obtain follow-up chest x-ray. Consultation Date/Type/Reason Admit Date/Time Dec 31, 2018 at 18:14 Initial Consult Date Type of Consult Pulmonary Patient's condition is stable. Patient is ambulatory in the room. Complains of very minimal shortness of breath with exertion. Denies any further hemoptysis. General exam; young male, awake alert, currently in no distress. Reason for Consultation H EENT exam; supple neck, no JVD. No lymphadenopathy. Midline trachea. No thyromegaly. Patient has fair dentition. No neck masses. Chest exam; diminished breath sounds bilaterally. No added sounds. There is a well-healed sternal scar. There is a soft systolic ejection murmur. Grade 2/6. Regular rhythm. Abdomen exam; soft, nontender. No organomegaly. Bowel sounds audible. Extremity exam; peripheral edema clubbing. No skin rash. 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 Requesting Provider: ALEX CLARKE MD Date/Time of Note DATE: 01/13/19 TIME: 10:38 Exam/Review of Systems Exam Vitals Vital Signs Date Temp Pulse Resp B/P (MAP) Pulse Ox O2 O2 Flow FiO2 Time Delivery Rate 01/13/19 96 20 96 Nasal 2.0 08:47 Cannula 01/13/19 98.8 126/83 07:27 (97) 01/10/19 21 01:00 Intake and Output 01/12/19 01/12/19 01/13/19 1414:59 22:59 06:59 IntakeIntake Total 1690 ml 2390 ml OutputOutput Total 1425 ml 1925 ml BalanceBalance 265 ml 465 ml Results Result Diagram: 01/13/19 0600 01/13/19 0600 Results 24hrs Laboratory Tests Test 01/13/19 06:00 White Blood Count 9.5 Red Blood Count 3.50 L Hemoglobin 9.4 L Hematocrit 29.6 L Mean Corpuscular Volume 84.6 Mean Corpuscular Hemoglobin 26.9 L Mean Corpuscular Hemoglobin Concent 31.8 L Red Cell Distribution Width 15.8 H Platelet Count 256 Mean Platelet Volume 8.8 Immature Granulocytes % 0.900 H Neutrophils % 69.9 Lymphocytes % 15.5 Monocytes % 5.5 Eosinophils % 7.5 H Basophils % 0.7 Nucleated Red Blood Cells % 0.0 Immature Granulocytes # 0.090 H Neutrophils # 6.7 Lymphocytes # 1.5 Monocytes # 0.5 Eosinophils # 0.7 H Basophils # 0.1 Nucleated Red Blood Cells # 0.0 Sodium Level 138 Potassium Level 3.8 Chloride Level 100 Carbon Dioxide Level 29 Anion Gap 9 Blood Urea Nitrogen 12 Creatinine 0.85 Est Glomerular Filtrat Rate mL/min > 60 Glucose Level 97 Calcium Level 8.8 Medications Medication Current Medications IV Flush (NS 3 ml) 3 ml PER PROTOCOL IV ; Start 12/31/18 at 18:30 Ondansetron HCl (Zofran Inj) 4 mg Q6H PRN IV NAUSEA/VOMITING Last administered on 01/10/19at 14:22; Admin Dose 4 MG; Start 12/31/18 at 18:30 Acetaminophen (Tylenol Tab) 650 mg Q6H PRN PO .PAIN 1-3 OR TEMP Last admi nistered on 01/03/19at 11:17; Admin Dose 650 MG; Start 12/31/18 at 18:30 Acetaminophen/ Hydrocodone Bitart ([place] (5/325)) 1 tab Q6H PRN PO .MOD PAIN 4- 6 Last administered on 01/09/19 09:06; Admin Dose 1 TAB; Start 12/31/18 at 18:30 Docusate Sodium (Colace) 100 mg Q12H PRN PO .CONSTIPATION; Start 12/31/18 at 18:30 Magnesium Hydroxide (Milk Of Mag) 30 ml DAILY PRN PO .CONSTIPATION; Start 12/31/18 at 18:30 Albuterol/ Ipratropium (Duoneb) 3 ml Q4H RESP THERAPY PRN HHN SHORTNESS OF BREATH Last administered on 01/09/19 19:19; Admin Dose 3 ML; Start 12/31/18 at 18:30 Hydralazine HCl (Apresoline) 10 mg Q6H PRN IV ELEVATED BLOOD PRESSURE; Start 12/31/18 at 18:30 Nitroglycerin (Nitroglycerin (Sl Tab) 0.4 Mg) 1 tab Q5M PRN SL ANGINA; Start 12/31/18 at 18:30 Guaifenesin (Robitussin Liquid Cup) 200 mg Q4H PRN PO COUGH Last administered on 01/13/19 08:31; Admin Dose 200 MG; Start 01/01/19 at 11:30 Ibuprofen (Motrin) 600 mg Q6H PRN PO MILD PAIN LEVEL 1-3 Last administered on 01/03/19 12:14; Admin Dose 600 MG; Start 01/01/19 at 17:30 Phenol (Cepastat Lozenge) 1 lozenge Q1H PRN MT COUGH Last administered on 01/09/19 09:06; Admin Dose 1 LOZENGE; Start 01/02/19 at 12:30 Famotidine (Pepcid) 20 mg DAILY PO Last administered on 01/13/19 08:28; Admin Dose 20 MG; Start 01/03/19 at 09:00 Levofloxacin (Levaquin) 750 mg DAILY@06 PO Last administered on 01/13/19 06:07; Admin Dose 750 MG; Start 01/08/19 at 06:00 Morphine Sulfate (morphine) 6 mg Q4H PRN PO SEVERE PAIN LEVEL 7-10 Last administered on 01/13/19 08:33; Admin Dose 6 MG; Start 01/07/19 at 23:30 Ceftriaxone Sodium 50 ml @ 100 mls/hr Q24H IVPB Last administered on 01/12/19 12:33; Admin Dose 100 MLS/HR; Start 01/09/19 at 13:00 Levalbuterol (Xopenex Neb) 0.63 mg Q4H RESP THERAPY HHN Last administered on 01/13/19 08:47; Admin Dose 0.63 MG; Start 01/10/19 at 01:00 Voriconazole (Vfend) 200 mg BID PO Last administered on 01/13/19 08:28; Admin Dose 200 MG; Start 01/11/19 at 13:00 CARLOS TRIVEDI Jan 13, 2019 10:40
--- NOTE | 2019-01-13 12:07 | CONS ---
Assessment/Plan Assessment/Plan Hospital Course (Demo Recall) Alert, feel better, nad Microbiology: Blood culture on admission grew Corynebacterium species. Repeat blood cultures on January 01 and January 11 negative HIV serology negative. Antimicrobials: Levaquin, Cefepime, Vfend. Assessment: 1. S/p sepsis present on admission, resolving 2. Community-acquired pneumonia with repeat CT notes multiple thin-walled cavities dense infiltrates and possible mycetoma. 3. Hemoptysis 4. History of endocarditis==> MADINA indeterminate for vegetations on tricuspid valve 5. IV drug abuse 6. Coronary artery disease with a history of tricuspid valve replacement and permanent pacemaker placement 6. Bacteremia cw contaminant Plan: Stable, continue abx, f/u pulmonary recommendations and cocci serology Consultation Date/Type/Reason Admit Date/Time Dec 31, 2018 at 18:14 Initial Consult Date Type of Consult id Requesting Provider: ALEX CLARKE MD Date/Time of Note DATE: 01/13/19 TIME: 12:06 Exam/Review of Systems Exam Vitals Vital Signs Date Temp Pulse Resp B/P (MAP) Pulse Ox O2 O2 Flow FiO2 Time Delivery Rate 01/13/19 96 20 96 Nasal 2.0 08:47 Cannula 01/13/19 98.8 126/83 07:27 (97) 01/10/19 21 01:00 Intake and Output 01/12/19 01/12/19 01/13/19 1414:59 22:59 06:59 IntakeIntake Total 1690 ml 2390 ml OutputOutput Total 1425 ml 1925 ml BalanceBalance 265 ml 465 ml Results Result Diagram: 01/13/19 0600 01/13/19 0600 Results 24hrs Laboratory Tests Test 01/13/19 06:00 White Blood Count 9.5 Red Blood Count 3.50 L Hemoglobin 9.4 L Hematocrit 29.6 L Mean Corpuscular Volume 84.6 Mean Corpuscular Hemoglobin 26.9 L Mean Corpuscular Hemoglobin Concent 31.8 L Red Cell Distribution Width 15.8 H Platelet Count 256 Mean Platelet Volume 8.8 Immature Granulocytes % 0.900 H Neutrophils % 69.9 Lymphocytes % 15.5 Monocytes % 5.5 Eosinophils % 7.5 H Basophils % 0.7 Nucleated Red Blood Cells % 0.0 Immature Granulocytes # 0.090 H Neutrophils # 6.7 Lymphocytes # 1.5 Monocytes # 0.5 Eosinophils # 0.7 H Basophils # 0.1 Nucleated Red Blood Cells # 0.0 Sodium Level 138 Potassium Level 3.8 Chloride Level 100 Carbon Dioxide Level 29 Anion Gap 9 Blood Urea Nitrogen 12 Creatinine 0.85 Est Glomerular Filtrat Rate mL/min > 60 Glucose Level 97 Calcium Level 8.8 Medications Medication Current Medications IV Flush (NS 3 ml) 3 ml PER PROTOCOL IV ; Start 12/31/18 at 18:30 Ondansetron HCl (Zofran Inj) 4 mg Q6H PRN IV NAUSEA/VOMITING Last administered on 01/10/19 14:22; Admin Dose 4 MG; Start 12/31/18 at 18:30 Acetaminophen (Tylenol Tab) 650 mg Q6H PRN PO .PAIN 1-3 OR TEMP Last administered on 01/03/19 11:17; Admin Dose 650 MG; Start 12/31/18 at 18:30 Acetaminophen/ Hydrocodone Bitart ([place] (5/325)) 1 tab Q6H PRN PO .MOD PAIN 4- 6 Last administered on 01/09/19 09:06; Admin Dose 1 TAB; Start 12/31/18 at 18:30 Docusate Sodium (Colace) 100 mg Q12H PRN PO .CONSTIPATION; Start 12/31/18 at 18:30 Magnesium Hydroxide (Milk Of Mag) 30 ml DAILY PRN PO .CONSTIPATION; Start 12/31/18 at 18:30 Albuterol/ Ipratropium (Duoneb) 3 ml Q4H RESP THERAPY PRN HHN SHORTNESS OF BREATH Last administered on 01/09/19 19:19; Admin Dose 3 ML; Start 12/31/18 at 18:30 Hydralazine HCl (Apresoline) 10 mg Q6H PRN IV ELEVATED BLOOD PRESSURE; Start 12/31/18 at 18:30 Nitroglycerin (Nitroglycerin (Sl Tab) 0.4 Mg) 1 tab Q5M PRN SL ANGINA; Start 12/31/18 at 18:30 Guaifenesin (Robitussin Liquid Cup) 200 mg Q4H PRN PO COUGH Last administered on 01/13/19 08:31; Admin Dose 200 MG; Start 01/01/19 at 11:30 Ibuprofen (Motrin) 600 mg Q6H PRN PO MILD PAIN LEVEL 1-3 Last administered on 01/03/19 12:14; Admin Dose 600 MG; Start 01/01/19 at 17:30 Phenol (Cepastat Lozenge) 1 lozenge Q1H PRN MT COUGH Last administered on 01/09/19 09:06; Admin Dose 1 LOZENGE; Start 01/02/19 at 12:30 Famotidine (Pepcid) 20 mg DAILY PO Last administered on 01/13/19 08:28; Admin Dose 20 MG; Start 01/03/19 at 09:00 Levofloxacin (Levaquin) 750 mg DAILY@06 PO Last administered on 01/13/19 06 :07; Admin Dose 750 MG; Start 01/08/19 at 06:00 Morphine Sulfate (morphine) 6 mg Q4H PRN PO SEVERE PAIN LEVEL 7-10 Last administered on 01/13/19 08:33; Admin Dose 6 MG; Start 01/07/19 at 23:30 Ceftriaxone Sodium 50 ml @ 100 mls/hr Q24H IVPB Last administered on 01/12/19 12:33; Admin Dose 100 MLS/HR; Start 01/09/19 at 13:00 Levalbuterol (Xopenex Neb) 0.63 mg Q4H RESP THERAPY HHN Last administered on 01/13/19 08:47; Admin Dose 0.63 MG; Start 01/10/19 at 01:00 Voriconazole (Vfend) 200 mg BID PO Last administered on 01/13/19 08:28; Admin Dose 200 MG; Start 01/11/19 at 13:00 HAYLEE ENGLE NP Jan 13, 2019 12:07
[2019-01-13] MEDS: CEFTRIAXONE 1 GM/50 ML (PMX) 50 ML IVPB SCH (13:24)
[2019-01-13 13:32] VITALS: BP 120/74; PULSE 107; RESP 20
--- NOTE | 2019-01-13 14:38 | PN ---
Date/Time of Note Date/Time of Note DATE: 01/13/19 TIME: 14:36 Assessment/Plan VTE Prophylaxis Risk score (from Ns)>0 risk: 4 SCD applied (from Ns): Yes Pharmacological prophylaxis: other Lines/Catheters IV Catheter Type (from [facility]): Peripheral IV Urinary Cath still in place: No Assessment/Plan Hospital Course S: Patient having less frequent fevers now, still having cough symptoms. Appears to be emotionally labile at times per nursing staff. Tolerating diet. O: VS - see below PHYSICAL EXAMINATION: GENERAL: lying in bed, no acute distress HEENT: Pupils are equal, round, react to light. Extraocular muscles are intact. NECK: Supple. No thyromegaly. LUNGS: Distant breath sounds bilaterally. CARDIOVASCULAR: S1, S2 heard. No rubs or gallops. ABDOMEN: Soft, nontender, nondistended. Normal bowel sounds. No rebound or guarding. MUSCULOSKELETAL: No lower extremity edema bilaterally. NEUROLOGIC: No focal deficits. 2D ECHO (01/02/19) Conclusions: Normal left ventricular systolic function. Normal left ventricular cavity size. Mild concentric left ventricular hypertrophy. Ejection fraction is visually estimated at 55-60 %. Tissue Doppler/Mitral Doppler indices are consistent with impaired relaxation (Stage I diastolic dysfunction). Mild enlargement of right ventricle. Mild right ventricular hypokinesis. There is severe enlargement of right atrium. Mild mitral annular calcification. Trace mitral regurgitation. No significant aortic stenosis or insufficiency. Aortic cusps appear mildly calcified. s/p Tricuspid valve replacement. TV vmax 2.84cm. Max PG 32mmHg. Mean PG 19 mmHg. Estimated peak PA systolic pressure 45 mmHg. There is moderate tricuspid regurgitation. CT chest with IV contrast January 10, 2019: IMPRESSION: 1. Patchy bilateral pulmonary consolidation is noted, greatest in the left lingula, concerning for multilobar pneumonia. Atypical infectious etiologies (tuberculosis, fungal infection) are not excluded. 2. Multiple thin-walled pulmonary cavities are seen bilaterally, new when compared to the prior CT, likely chronic sequela of prior infection/inflammation. 3. There is nonspecific prominence of mediastinal and hilar lymph nodes, possibly reactive. Prominent supraclavicular lymph nodes are noted as well, of uncertain etiology. 4. Mild bilateral pleural effusions. 5. Mild cardiomegaly. Coronary arterial and aortic atherosclerotic calcifications. Assessment/Plan: 28-year-old man coming in with productive cough, possible hemoptysis for last 7 to 10 days prior to admission, with signs of leukocytosis and pneumonia with a prior history of IV drug abuse, endocarditis, pacemaker and pulmonary embolism and tricuspid valve repair. # Cough and hemoptysis + Hypoxia -CT chest results from January 10, 2019 results reviewed- Hypoxia persistent; patient has required nasal cannula for a week now- Hemoptysis now resolving -Continue broad spectrum antibiotics, low-dose IV fluids, Tylenol p.r.n. pain and fevers. -Again, January [address] chest with patchy infiltrates throughout; cavitary lesions which may represent old septic emboli. -There are also possible fungal balls. Pending crypto, cocci, aspergillus antibodies. -Follow-up recommendation from pulmonary Dr. Mcduffie following, and infectious disease # Bacteremia- Blood cultures growing 2/2 bottles corynebacteria- MADINA indeterminate for vegetations on tricuspid valve. - Plan for 4 weeks of ceftriaxone per ID recommendations. - Patient is homeless, so any course of IV antibiotics will likely need to be completed in hospital? 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 - counseled on cessation. # History of prior pacemaker- Monitored for one week on tele. He does develop occasional V-paced tachycardia, asymptomatic - Transfer to med/surg # History of peptic ulcer disease - H2 sharona. Otherwise, no present issues. Result Diagram: 01/13/19 0600 01/13/19 0600 Results 24hrs Laboratory Tests Test 01/13/19 06:00 White Blood Count 9.5 Red Blood Count 3.50 L Hemoglobin 9.4 L Hematocrit 29.6 L Mean Corpuscular Volume 84.6 Mean Corpuscular Hemoglobin 26.9 L Mean Corpuscular Hemoglobin Concent 31.8 L Red Cell Distribution Width 15.8 H Platelet Count 256 Mean Platelet Volume 8.8 Immature Granulocytes % 0.900 H Neutrophils % 69.9 Lymphocytes % 15.5 Monocytes % 5.5 Eosinophils % 7.5 H Basophils % 0.7 Nucleated Red Blood Cells % 0.0 Immature Granulocytes # 0.090 H Neutrophils # 6.7 Lymphocytes # 1.5 Monocytes # 0.5 Eosinophils # 0.7 H Basophils # 0.1 Nucleated Red Blood Cells # 0.0 Sodium Level 138 Potassium Level 3.8 Chloride Level 100 Carbon Dioxide Level 29 Anion Gap 9 Blood Urea Nitrogen 12 Creatinine 0.85 Est Glomerular Filtrat Rate mL/min > 60 Glucose Level 97 Calcium Level 8.8 Exam/Review of Systems Exam Vitals Vital Signs Date Temp Pulse Resp B/P (MAP) Pulse Ox O2 O2 Flow FiO2 Time Delivery Rate 01/13/19 97.5 107 20 120/74 98 13:32 (89) 01/13/19 2.0 13:02 01/13/19 Nasal 12:59 Cannula 01/10/19 01:00 Intake and Output 01/12/19 01/12/19 01/13/19 1414:59 22:59 06:59 IntakeIntake Total 1690 ml 2390 ml OutputOutput Total 1425 ml 1925 ml BalanceBalance 265 ml 465 ml Results Results 24hrs Laboratory Tests Test 01/13/19 06:00 White Blood Count 9.5 Red Blood Count 3.50 L Hemoglobin 9.4 L Hematocrit 29.6 L Mean Corpuscular Volume 84.6 Mean Corpuscular Hemoglobin 26.9 L Mean Corpuscular Hemoglobin Concent 31.8 L Red Cell Distribution Width 15.8 H Platelet Count 256 Mean Platelet Volume 8.8 Immature Granulocytes % 0.900 H Neutrophils % 69.9 Lymphocytes % 15.5 Monocytes % 5.5 Eosinophils % 7.5 H Basophils % 0.7 Nucleated Red Blood Cells % 0.0 Immature Granulocytes # 0.090 H Neutrophils # 6.7 Lymphocytes # 1.5 Monocytes # 0.5 Eosinophils # 0.7 H Basophils # 0.1 Nucleated Red Blood Cells # 0.0 Sodium Level 138 Potassium Level 3.8 Chloride Level 100 Carbon Dioxide Level 29 Anion Gap 9 Blood Urea Nitrogen 12 Creatinine 0.85 Est Glomerular Filtrat Rate mL/min > 60 Glucose Level 97 Calcium Level 8.8 Medications Medication Current Medications IV Flush (NS 3 ml) 3 ml PER PROTOCOL IV ; Start 12/31/18 at 18:30 Ondansetron HCl (Zofran Inj) 4 mg Q6H PRN IV NAUSEA/VOMITING Last administered on 01/10/19at 14:22; Admin Dose 4 MG; Start 12/31/18 at 18:30 Acetaminophen (Tylenol Tab) 650 mg Q6H PRN PO .PAIN 1-3 OR TEMP Last administered on 3/1/19at 11:17; Admin Dose 650 MG; Start 12/31/18 at 18:30 Acetaminophen/ Hydrocodone Bitart ([place] (5/325)) 1 tab Q6H PRN PO .MOD PAIN 4- 6 Last administered on 01/09/19 09:06; Admin Dose 1 TAB; Start 12/31/18 at 18:30 Docusate Sodium (Colace) 100 mg Q12H PRN PO .CONSTIPATION; Start 12/31/18 at 18:30 Magnesium Hydroxide (Milk Of Mag) 30 ml DAILY PRN PO .CONSTIPATION; Start 12/31/18 at 18:30 Albuterol/ Ipratropium (Duoneb) 3 ml Q4H RESP THERAPY PRN HHN SHORTNESS OF BREATH Last administered on 01/09/19 19:19; Admin Dose 3 ML; Start 12/31/18 at 18:30 Hydralazine HCl (Apresoline) 10 mg Q6H PRN IV ELEVATED BLOOD PRESSURE; Start 12/31/18 at 18:30 Nitroglycerin (Nitroglycerin (Sl Tab) 0.4 Mg) 1 tab Q5M PRN SL ANGINA; Start 12/31/18 at 18:30 Guaifenesin (Robitussin Liquid Cup) 200 mg Q4H PRN PO COUGH Last administered on 01/13/19 13:24; Admin Dose 200 MG; Start 01/01/19 at 11:30 Ibuprofen (Motrin) 600 mg Q6H PRN PO MILD PAIN LEVEL 1-3 Last administered on 01/03/19 12:14; Admin Dose 600 MG; Start 01/01/19 at 17:30 Phenol (Cepastat Lozenge) 1 lozenge Q1H PRN MT COUGH Last administered on 01/09/19 09:06; Admin Dose 1 LOZENGE; Start 01/02/19 at 12:30 Famotidine (Pepcid) 20 mg DAILY PO Last administered on 01/13/19 08:28; Admin Dose 20 MG; Start 01/03/19 at 09:00 Levofloxacin (Levaquin) 750 mg DAILY@06 PO Last administered on 01/13/19 06:07; Admin Dose 750 MG; Start 01/08/19 at 06:00 Morphine Sulfate (morphine) 6 mg Q4H PRN PO SEVERE PAIN LEVEL 7-10 Last administered on 01/13/19 13:24; Admin Dose 6 MG; Start 01/07/19 at 23:30 Ceftriaxone Sodium 50 ml @ 100 mls/hr Q24H IVPB Last administered on 01/13/19 13:24; Admin Dose 100 MLS/HR; Start 01/09/19 at 13:00 Levalbuterol (Xopenex Neb) 0.63 mg Q4H RESP THERAPY HHN Last administered on 01/13/19 12:59; Admin Dose 0.63 MG; Start 01/10/19 at 01:00 Voriconazole (Vfend) 200 mg BID PO Last administered on 01/13/19 08:28; Admin Dose 200 MG; Start 01/11/19 at 13:00 ROWAN OVALLE Jan 13, 2019 14:38
--- NOTE | 2019-01-13 17:13 | CONS ---
Assessment/Plan Assessment/Plan Hospital Course (Demo Recall) IMPRESSION: 1. Bacteremia, assess for intracardiac source of infection, rule out endocarditis.- s/p MADINA 01/08 with chronic prior changes of TVR and nonspecific findings associated with pacer leads. No definite findings of vegetations. bLD CX'S 01/01 remain negative to date 2. History of permanent pacemaker. 3. History of tricuspid valve repair. 4. History of IV drug abuse with ongoing drug usage and toxicology positive for amphetamines and cannabinoids. 5. History of peptic ulcer disease. 6. Cough and hemoptysis.- s/p chest CT with cavitary lesions Recc: -tele -would f/u cx data as MADINA without definite findings of ongoing vegetations but with chronic changes and base further abx therapy upon the cx data -Contineu abx's and voriconazole after chest CT findings and follow-up cx data -Pulmonary following Consultation Date/Type/Reason Admit Date/Time Dec 31, 2018 at 18:14 Initial Consult Date 01/08/19 Type of Consult Cardiology Reason for Consultation bacteremia Requesting Provider: ALEX CLARKE MD Date/Time of Note DATE: 01/13/19 TIME: 17:12 Exam/Review of Systems Vital Signs Vitals Vital Signs Date Temp Pulse Resp B/P (MAP) Pulse Ox O2 O2 Flow FiO2 Time Delivery Rate 01/13/19 97.5 107 20 120/74 98 13:32 (89) 01/13/19 2.0 13:02 01/13/19 Nasal 12:59 Cannula 01/10/19 21 01:00 Intake and Output 01/12/19 01/12/19 01/13/19 1515:00 23:00 07:00 IntakeIntake Total 1690 ml 2390 ml OutputOutput Total 1425 ml 1925 ml BalanceBalance 265 ml 465 ml Exam Exam Review of Systems: CONSTITUTIONAL: No fevers, chills. PULMONARY: No sob CARDIOVASCULAR: No chest pain/palpitations GASTROINTESTINAL: No nausea/vomiting. GENITOURINARY: No hematuria/dysuria. MUSCULOSKELETAL: No myagias/arthalgias. PSYCHIATRIC: The patient denies depression. NEUROLOGIC: No weakness Constitutional: alert Psych: no complaints Head: normocephalic ENMT: mucosa pink and moist Neck: supple, jvd (9 cm water) Respiratory: diminished breath sounds Cardiovascular: regular rate and rhythm Gastrointestinal: soft, non-tender Musculoskeletal: muscle tone (normal) Extremities: edema (none) Neurological: other (No focal deficits) Labs Result Diagram: 01/13/19 0600 01/13/19 0600 Results 24hrs Laboratory Tests Test 01/13/19 06:00 White Blood Count 9.5 Red Blood Count 3.50 L Hemoglobin 9.4 L Hematocrit 29.6 L Mean Corpuscular Volume 84.6 Mean Corpuscular Hemoglobin 26.9 L Mean Corpuscular Hemoglobin Concent 31.8 L Red Cell Distribution Width 15.8 H Platelet Count 256 Mean Platelet Volume 8.8 Immature Granulocytes % 0.900 H Neutrophils % 69.9 Lymphocytes % 15.5 Monocytes % 5.5 Eosinophils % 7.5 H Basophils % 0.7 Nucleated Red Blood Cells % 0.0 Immature Granulocytes # 0.090 H Neutrophils # 6.7 Lymphocytes # 1.5 Monocytes # 0.5 Eosinophils # 0.7 H Basophils # 0.1 Nucleated Red Blood Cells # 0.0 Sodium Level 138 Potassium Level 3.8 Chloride Level 100 Carbon Dioxide Level 29 Anion Gap 9 Blood Urea Nitrogen 12 Creatinine 0.85 Est Glomerular Filtrat Rate mL/min > 60 Glucose Level 97 Calcium Level 8.8 Medications Medications Current Medications IV Flush (NS 3 ml) 3 ml PER PROTOCOL IV ; Start 12/31/18 at 18:30 Ondansetron HCl (Zofran Inj) 4 mg Q6H PRN IV NAUSEA/VOMITING Last administered on 01/10/19 14:22; Admin Dose 4 MG; Start 12/31/18 at 18:30 Acetaminophen (Tylenol Tab) 650 mg Q6H PRN PO .PAIN 1-3 OR TEMP Last administered on 01/03/19 11:17; Admin Dose 650 MG; Start 12/31/18 at 18:30 Acetaminophen/ Hydrocodone Bitart ([place] (5/325)) 1 tab Q6H PRN PO .MOD PAIN 4- 6 Last administered on 01/09/19 09:06; Admin Dose 1 TAB; Start 12/31/18 at 18:30 Docusate Sodium (Colace) 100 mg Q12H PRN PO .CONSTIPATION; Start 12/31/18 at 18:30 Magnesium Hydroxide (Milk Of Mag) 30 ml DAILY PRN PO .CONSTIPATION; Start 12/31/18 at 18:30 Albuterol/ Ipratropium (Duoneb) 3 ml Q4H RESP THERAPY PRN HHN SHORTNESS OF YESY ATH Last administered on 01/09/19 19:19; Admin Dose 3 ML; Start 12/31/18 at 18:30 Hydralazine HCl (Apresoline) 10 mg Q6H PRN IV ELEVATED BLOOD PRESSURE; Start 12/31/18 at 18:30 Nitroglycerin (Nitroglycerin (Sl Tab) 0.4 Mg) 1 tab Q5M PRN SL ANGINA; Start 12/31/18 at 18:30 Guaifenesin (Robitussin Liquid Cup) 200 mg Q4H PRN PO COUGH Last administered on 01/13/19 13:24; Admin Dose 200 MG; Start 01/01/19 at 11:30 Ibuprofen (Motrin) 600 mg Q6H PRN PO MILD PAIN LEVEL 1-3 Last administered on 01/03/19 12:14; Admin Dose 600 MG; Start 01/01/19 at 17:30 Phenol (Cepastat Lozenge) 1 lozenge Q1H PRN MT COUGH Last administered on 01/09/19 09:06; Admin Dose 1 LOZENGE; Start 01/02/19 at 12:30 Famotidine (Pepcid) 20 mg DAILY PO Last administered on 01/13/19 08:28; Admin Dose 20 MG; Start 01/03/19 at 09:00 Levofloxacin (Levaquin) 750 mg DAILY@06 PO Last administered on 01/13/19 06:07; Admin Dose 750 MG; Start 01/08/19 at 06:00 Morphine Sulfate (morphine) 6 mg Q4H PRN PO SEVERE PAIN LEVEL 7-10 Last administered on 01/13/19 13:24; Admin Dose 6 MG; Start 01/07/19 at 23:30 Ceftriaxone Sodium 50 ml @ 100 mls/hr Q24H IVPB Last administered on 01/13/19 13:24; Admin Dose 100 MLS/HR; Start 01/09/19 at 13:00 Levalbuterol (Xopenex Neb) 0.63 mg Q4H RESP THERAPY HHN Last administered on 01/13/19 12:59; Admin Dose 0.63 MG; Start 01/10/19 at 01:00 Voriconazole (Vfend) 200 mg BID PO Last administered on 01/13/19at 08:28; Admin Dose 200 MG; Start 01/11/19 at 13:00 ALEX TRAN Jan 13, 2019 17:13
[2019-01-13 19:54] VITALS: BP 115/72; PULSE 84; RESP 18
[2019-01-14] MEDS: LEVALBUTEROL (NEB) 0.63 MG/3 ML AMP HHN SCH ×6 (00:45→21:52)
[2019-01-14 01:08] VITALS: BP 133/86; PULSE 85; RESP 18
[2019-01-14] MEDS: GUAIFENESIN 20 MG/ML 5ML CUP PO PRN ×4 (05:32→20:19)
[2019-01-14] MEDS: morphine LIQ (10 MG/5 ML) CUP PO PRN ×4 (05:33→20:19)
[2019-01-14] MEDS: LEVOFLOXACIN 750 MG TABLET PO SCH (05:35)
[2019-01-14 07:31] VITALS: BP 120/80; PULSE 87; RESP 20
[2019-01-14] MEDS: FAMOTIDINE 20 MG TAB PO SCH (08:42)
[2019-01-14] MEDS: VORICONAZOLE 200 MG TAB PO SCH ×2 (08:42→20:18)
--- NOTE | 2019-01-14 09:46 | CONS ---
Consult Date/Type/Reason Admit Date/Time Dec 31, 2018 at 18:14 Initial Consult Date Requesting Provider: ALEX CLARKE MD Date/Time of Note DATE: 01/14/19 TIME: 09:44 Subjective NO acute events - still with cough - clinically better -- defer MADINA consideration to DR. Mustafa. ROS: No fever, no chills, no nausea, no vomiting, no diarrhea/constipation No recent weight changes No chest pain, no PND, no orthopnea + cough No dizziness, blurred vision No thirst, no heat or cold intolerance Objective Vitals Vital Signs Date Temp Pulse Resp B/P (MAP) Pulse Ox O2 O2 Flow FiO2 Time Delivery Rate 01/14/19 97.7 87 20 120/80 97 07:31 (93) 01/14/19 Nasal 4.0 05:50 Cannula Intake and Output 01/13/19 01/13/19 01/14/19 1515:00 23:00 07:00 IntakeIntake Total 1610 ml 840 ml 650 ml OutputOutput Total 2125 ml 2450 ml 2100 ml BalanceBalance -515 ml -1610 ml -1450 ml Exam General: WN/WD/NAD, AOx 3 HEENT: Unicetric/atraumatic/EOMI (follow commands) NECK: JVD elevated, no thyromegaly Lymph: no lymphadenopathy HEART: regular with no S3, II/ systolic murmur at apex, midsternal scar. L pacer LUNGS: Coarse sounds ABD: soft, NT, ND, +BS : Intact Neuro: non focal SKIN: chronic changes EXT: trace edema Results/Medications Result Diagram: 01/14/19 0509 01/14/19 0509 Results 24 hrs Laboratory Tests Test 01/14/19 05:09 White Blood Count 9.0 Red Blood Count 3.62 L Hemoglobin 9.8 L Hematocrit 30.7 L Mean Corpuscular Volume 84.8 Mean Corpuscular Hemoglobin 27.1 L Mean Corpuscular Hemoglobin Concent 31.9 L Red Cell Distribution Width 16.0 H Platelet Count 282 Mean Platelet Volume 9.2 Immature Granulocytes % 0.800 H Neutrophils % 69.1 Lymphocytes % 14.8 L Monocytes % 4.8 Eosinophils % 9.6 H Basophils % 0.9 Nucleated Red Blood Cells % 0.0 Immature Granulocytes # 0.070 H Neutrophils # 6.2 Lymphocytes # 1.3 Monocytes # 0.4 Eosinophils # 0.9 H Basophils # 0.1 Nucleated Red Blood Cells # 0.0 Sodium Level 139 Potassium Level 4.3 Chloride Level 103 Carbon Dioxide Level 27 Anion Gap 9 Blood Urea Nitrogen 13 Creatinine 0.79 Est Glomerular Filtrat Rate mL/min > 60 Glucose Level 97 Calcium Level 9.1 Home Meds Reported Medications Aspirin* (Aspirin* EC) 81 Mg Tablet.dr, 81 MG PO DAILY, TAB TAKE 2 OR 3 TIMES A DAY 04/27/18 Medications Current Medications IV Flush (NS 3 ml) 3 ml PER PROTOCOL IV ; Start 12/31/18 at 18:30 Ondansetron HCl (Zofran Inj) 4 mg Q6H PRN IV NAUSEA/VOMITING Last administered on 01/10/19 14:22; Admin Dose 4 MG; Start 12/31/18 at 18:30 Acetaminophen (Tylenol Tab) 650 mg Q6H PRN PO .PAIN 1-3 OR TEMP Last administered on 01/03/19 11:17; Admin Dose 650 MG; Start 12/31/18 at 18:30 Acetaminophen/ Hydrocodone Bitart ([place] (5/325)) 1 tab Q6H PRN PO .MOD PAIN 4- 6 Last administered on 01/09/19 09:06; Admin Dose 1 TAB; Start 12/31/18 at 18:30 Docusate Sodium (Colace) 100 mg Q12H PRN PO .CONSTIPATION; Start 12/31/18 at 18:30 Magnesium Hydroxide (Milk Of Mag) 30 ml DAILY PRN PO .CONSTIPATION; Start 12/31/18 at 18:30 Albuterol/ Ipratropium (Duoneb) 3 ml Q4H RESP THERAPY PRN HHN SHORTNESS OF BREATH Last administered on 01/09/19 19:19; Admin Dose 3 ML; Start 12/31/18 at 18:30 Hydralazine HCl (Apresoline) 10 mg Q6H PRN IV ELEVATED BLOOD PRESSURE; Start 12/31/18 at 18:30 Nitroglycerin (Nitroglycerin (Sl Tab) 0.4 Mg) 1 tab Q5M PRN SL ANGINA; Start 12/31/18 at 18:30 Guaifenesin (Robitussin Liquid Cup) 200 mg Q4H PRN PO COUGH Last administered on 01/14/19 05:32; Admin Dose 200 MG; Start 01/01/19 at 11:30 Ibuprofen (Motrin) 600 mg Q6H PRN PO MILD PAIN LEVEL 1-3 Last administered on 01/03/19 12:14; Admin Dose 600 MG; Start 01/01/19 at 17:30 Phenol (Cepastat Lozenge) 1 lozenge Q1H PRN MT COUGH Last administered on 01/09/19 09:06; Admin Dose 1 LOZENGE; Start 01/02/19 at 12:30 Famotidine (Pepcid) 20 mg DAILY PO Last administered on 01/14/19 08:42; Admin Dose 20 MG; Start 01/03/19 at 09:00 Levofloxacin (Levaquin) 750 mg DAILY@06 PO Last administered on 01/14/19 05:35; Admin Dose 750 MG; Start 01/08/19 at 06:00 Morphine Sulfate (morphine) 6 mg Q4H PRN PO SEVERE PAIN LEVEL 7-10 Last administered on 01/14/19 05:33; Admin Dose 6 MG; Start 01/07/19 at 23:30 Ceftriaxone Sodium 50 ml @ 100 mls/hr Q24H IVPB Last administered on 01/13/19 13:24; Admin Dose 100 MLS/HR; Start 01/09/19 at 13:00 Levalbuterol (Xopenex Neb) 0.63 mg Q4H RESP THERAPY HHN Last administered on 01/14/19 09:29; Admin Dose 0.63 MG; Start 01/10/19 at 01:00 Voriconazole (Vfend) 200 mg BID PO Last administered on 01/14/19 08:42; Admin Dose 200 MG; Start 01/11/19 at 13:00 Assessment/Plan Hospital Course (Demo Recall) 1. Bacteremia, assess for intracardiac source of infection, rule out endocarditis.- s/p MADINA 01/08 with chronic prior changes of TVR and nonspecific findings associated with pacer leads. No definite findings of vegetations. bLD CX'S 01/01 remain negative to date - defer to DR. Mustafa for MADINA. 2. History of permanent pacemaker - site looks well-con't to follow. 3. History of tricuspid valve repair - stable by exam. 4. History of IV drug abuse with ongoing drug usage and toxicology positive for amphetamines and cannabinoids. D/C advised. 5. History of peptic ulcer disease. 6. Cough and hemoptysis.- s/p chest CT with cavitary lesions - pulmonary follows. LUIS SCOTT MD Jan 14, 2019 09:46
--- NOTE | 2019-01-14 11:06 | CONS ---
Assessment/Plan Assessment/Plan Assessment/Plan (Daily) Assessment and recommendations; 1. Patient admitted with bilateral pneumonia with micro cavitation and hemoptysis likely septic embolism to lungs from possibly underlying endocarditis. Currently on appropriate antimicrobial and antifungal regimen with clinical interval improvement. 2. Possibly chronic pulmonary scarring. 3. Chronic anemia. 4. Intravenous drug abuse. 5. History of tricuspid valve replacement. Continue current supportive care. Antibiotics per ID recommendations. Consultation Date/Type/Reason Admit Date/Time Dec 31, 2018 at 18:14 Initial Consult Date Type of Consult Pulmonary Patient's condition is stable. Patient is ambulatory in the room. Complains of very minimal shortness of breath with exertion. Denies any further hemoptysis. General exam; young male, awake alert, currently in no distress. Requesting Provider: ALEX CLARKE MD Date/Time of Note DATE: 01/14/19 TIME: 11:04 24 HR Interval Summary Free Text/Dictation Patient's condition is stable. Remains awake and alert. Has remained hemodynamically stable. Denies any shortness of breath, coughing, hemoptysis is improving. Denies any chest pain. Any fever. General exam; young male, awake alert, currently in no distress. Exam/Review of Systems Exam Vitals Vital Signs Date Temp Pulse Resp B/P (MAP) Pulse Ox O2 O2 Flow FiO2 Time Delivery Rate 01/14/19 86 20 96 Nasal 4.0 09:40 Cannula 01/14/19 97.7 120/80 07:31 (93) Intake and Output 01/13/19 01/13/19 01/14/19 1515:00 23:00 07:00 IntakeIntake Total 1610 ml 840 ml 650 ml OutputOutput Total 2125 ml 2450 ml 2100 ml BalanceBalance -515 ml -1610 ml -1450 ml Exam H EENT exam; supple neck, no JVD. No lymphadenopathy. Midline trachea. No thyromegaly. Patient has fair dentition. No neck masses. Chest exam; diminished but clear breath sounds. S1-S2 audible, soft systolic murmur. There is a well-healed sternal scar. Abdomen exam; soft, nontender. No organomegaly. Bowel sounds audible. Extremity exam; no peripheral edema. Patient does have multiple scars. [employer] exam; no focal deficit. Results Result Diagram: 01/14/19 0509 01/14/19 0509 Results 24hrs Laboratory Tests Test 01/14/19 05:09 White Blood Count 9.0 Red Blood Count 3.62 L Hemoglobin 9.8 L Hematocrit 30.7 L Mean Corpuscular Volume 84.8 Mean Corpuscular Hemoglobin 27.1 L Mean Corpuscular Hemoglobin Concent 31.9 L Red Cell Distribution Width 16.0 H Platelet Count 282 Mean Platelet Volume 9.2 Immature Granulocytes % 0.800 H Neutrophils % 69.1 Lymphocytes % 14.8 L Monocytes % 4.8 Eosinophils % 9.6 H Basophils % 0.9 Nucleated Red Blood Cells % 0.0 Immature Granulocytes # 0.070 H Neutrophils # 6.2 Lymphocytes # 1.3 Monocytes # 0.4 Eosinophils # 0.9 H Basophils # 0.1 Nucleated Red Blood Cells # 0.0 Sodium Level 139 Potassium Level 4.3 Chloride Level 103 Carbon Dioxide Level 27 Anion Gap 9 Blood Urea Nitrogen 13 Creatinine 0.79 Est Glomerular Filtrat Rate mL/min > 60 Glucose Level 97 Calcium Level 9.1 Medications Medication Current Medications IV Flush (NS 3 ml) 3 ml PER PROTOCOL IV ; Start 12/31/18 at 18:30 Ondansetron HCl (Zofran Inj) 4 mg Q6H PRN IV NAUSEA/VOMITING Last administered on 01/10/19 14:22; Admin Dose 4 MG; Start 12/31/18 at 18:30 Acetaminophen (Tylenol Tab) 650 mg Q6H PRN PO .PAIN 1-3 OR TEMP Last administered on 01/03/19 11:17; Admin Dose 650 MG; Start 12/31/18 at 18:30 Acetaminophen/ Hydrocodone Bitart ([place] (5/325)) 1 tab Q6H PRN PO .MOD PAIN 4- 6 Last administered on 01/09/19 09:06; Admin Dose 1 TAB; Start 12/31/18 at 18:30 Docusate Sodium (Colace) 100 mg Q12H PRN PO .CONSTIPATION; Start 12/31/18 at 18:30 Magnesium Hydroxide (Milk Of Mag) 30 ml DAILY PRN PO .CONSTIPATION; Start 12/31/18 at 18:30 Albuterol/ Ipratropium (Duoneb) 3 ml Q4H RESP THERAPY PRN HHN SHORTNESS OF BREATH Last administered on 01/09/19 19:19; Admin Dose 3 ML; Start 12/31/18 at 18:30 Hydralazine HCl (Apresoline) 10 mg Q6H PRN IV ELEVATED BLOOD PRESSURE; Start 12/31/18 at 18:30 Nitroglycerin (Nitroglycerin (Sl Tab) 0.4 Mg) 1 tab Q5M PRN SL ANGINA; Start 12/31/18 at 18:30 Guaifenesin (Robitussin Liquid Cup) 200 mg Q4H PRN PO COUGH Last administered on 01/14/19 05:32; Admin Dose 200 MG; Start 01/01/19 at 11:30 Ibuprofen (Motrin) 600 mg Q6H PRN PO MILD PAIN LEVEL 1-3 Last administered on 01/03/19 12:14; Admin Dose 600 MG; Start 01/01/19 at 17:30 Phenol (Cepastat Lozenge) 1 lozenge Q1H PRN MT COUGH Last administered on 01/09/19 09:06; Admin Dose 1 LOZENGE; Start 01/02/19 at 12:30 Famotidine (Pepcid) 20 mg DAILY PO Last administered on 01/14/19 08:42; Admin Dose 20 MG; Start 01/03/19 at 09:00 Levofloxacin (Levaquin) 750 mg DAILY@06 PO Last administered on 01/14/19 05:35; Admin Dose 750 MG; Start 01/08/19 at 06:00 Morphine Sulfate (morphine) 6 mg Q4H PRN PO SEVERE PAIN LEVEL 7-10 Last administered on 01/14/19 05:33; Admin Dose 6 MG; Start 01/07/19 at 23:30 Ceftriaxone Sodium 50 ml @ 100 mls/hr Q24H IVPB Last administered on 01/13/19 13:24; Admin Dose 100 MLS/HR; Start 01/09/19 at 13:00 Levalbuterol (Xopenex Neb) 0.63 mg Q4H RESP THERAPY HHN Last administered on 01/14/19 09:29; Admin Dose 0.63 MG; Start 01/10/19 at 01:00 Voriconazole (Vfend) 200 mg BID PO Last administered on 01/14/19 08:42; Admin Dose 200 MG; Start 01/11/19 at 13:00 CARLOS TRIVEDI 12, 2019 11:06
--- NOTE | 2019-01-14 12:25 | CONS ---
Assessment/Plan Assessment/Plan Hospital Course (Demo Recall) No acute events, looks comfortable, no fevers Microbiology: Blood culture on admission grew Corynebacterium species. Repeat blood cultures on January 01 and January 11 negative HIV serology negative. Antimicrobials: Levaquin, Cefepime, Vfend. Assessment: 1. S/p sepsis present on admission, resolving 2. Community-acquired pneumonia with repeat CT notes multiple thin-walled cavities dense infiltrates and possible mycetoma. 3. Hemoptysis 4. History of endocarditis==> MADINA indeterminate for vegetations on tricuspid valve 5. IV drug abuse 6. Coronary artery disease with a history of tricuspid valve replacement and permanent pacemaker placement 6. Bacteremia cw contaminant Plan: Remains stable, continue abx, pulmonary recommendations noted, f/u cocci serology Consultation Date/Type/Reason Admit Date/Time Dec 31, 2018 at 18:14 Initial Consult Date Type of Consult id Requesting Provider: ALEX CLARKE MD Date/Time of Note DATE: 01/14/19 TIME: 12:24 Exam/Review of Systems Exam Vitals Vital Signs Date Temp Pulse Resp B/P (MAP) Pulse Ox O2 O2 Flow FiO2 Time Delivery Rate 01/14/19 86 20 96 Nasal 4.0 09:40 Cannula 01/14/19 97.7 120/80 07:31 (93) Intake and Output 01/13/19 01/13/19 01/14/19 1515:00 23:00 07:00 IntakeIntake Total 1610 ml 840 ml 650 ml OutputOutput Total 2125 ml 2450 ml 2100 ml BalanceBalance -515 ml -1610 ml -1450 ml Results Result Diagram: 01/14/19 0509 01/14/19 0509 Results 24hrs Laboratory Tests Test 01/14/19 05:09 White Blood Count 9.0 Red Blood Count 3.62 L Hemoglobin 9.8 L Hematocrit 30.7 L Mean Corpuscular Volume 84.8 Mean Corpuscular Hemoglobin 27.1 L Mean Corpuscular Hemoglobin Concent 31.9 L Red Cell Distribution Width 16.0 H Platelet Count 282 Mean Platelet Volume 9.2 Immature Granulocytes % 0.800 H Neutrophils % 69.1 Lymphocytes % 14.8 L Monocytes % 4.8 Eosinophils % 9.6 H Basophils % 0.9 Nucleated Red Blood Cells % 0.0 Immature Granulocytes # 0.070 H Neutrophils # 6.2 Lymphocytes # 1.3 Monocytes # 0.4 Eosinophils # 0.9 H Basophils # 0.1 Nucleated Red Blood Cells # 0.0 Sodium Level 139 Potassium Level 4.3 Chloride Level 103 Carbon Dioxide Level 27 Anion Gap 9 Blood Urea Nitrogen 13 Creatinine 0.79 Est Glomerular Filtrat Rate mL/min > 60 Glucose Level 97 Calcium Level 9.1 Medications Medication Current Medications IV Flush (NS 3 ml) 3 ml PER PROTOCOL IV ; Start 12/31/18 at 18:30 Ondansetron HCl (Zofran Inj) 4 mg Q6H PRN IV NAUSEA/VOMITING Last administered on 01/10/19 14:22; Admin Dose 4 MG; Start 12/31/18 at 18:30 Acetaminophen (Tylenol Tab) 650 mg Q6H PRN PO .PAIN 1-3 OR TEMP Last administered on 01/03/19 11:17; Admin Dose 650 MG; Start 12/31/18 at 18:30 Acetaminophen/ Hydrocodone Bitart ([place] (5/325)) 1 tab Q6H PRN PO .MOD PAIN 4- 6 Last administered on 01/09/19 09:06; Admin Dose 1 TAB; Start 12/31/18 at 18:30 Docusate Sodium (Colace) 100 mg Q12H PRN PO .CONSTIPATION; Start 12/31/18 at 18:30 Magnesium Hydroxide (Milk Of Mag) 30 ml DAILY PRN PO .CONSTIPATION; Start 12/31/18 at 18:30 Albuterol/ Ipratropium (Duoneb) 3 ml Q4H RESP THERAPY PRN HHN SHORTNESS OF BREATH Last administered on 01/09/19 19:19; Admin Dose 3 ML; Start 12/31/18 at 18:30 Hydralazine HCl (Apresoline) 10 mg Q6H PRN IV ELEVATED BLOOD PRESSURE; Start 12/31/18 at 18:30 Nitroglycerin (Nitroglycerin (Sl Tab) 0.4 Mg) 1 tab Q5M PRN SL ANGINA; Start 12/31/18 at 18:30 Guaifenesin (Robitussin Liquid Cup) 200 mg Q4H PRN PO COUGH Last administered on 01/14/19 11:10; Admin Dose 200 MG; Start 01/01/19 at 11:30 Ibuprofen (Motrin) 600 mg Q6H PRN PO MILD PAIN LEVEL 1-3 Last administered on 01/03/19 12:14; Admin Dose 600 MG; Start 01/01/19 at 17:30 Phenol (Cepastat Lozenge) 1 lozenge Q1H PRN MT COUGH Last administered on 01/09/19 09:06; Admin Dose 1 LOZENGE; Start 01/02/19 at 12:30 Famotidine (Pepcid) 20 mg DAILY PO Last administered on 01/14/19 08:42; Admin Dose 20 MG; Start 01/03/19 at 09:00 Levofloxacin (Levaquin) 750 mg DAILY@06 PO Last administered on 01/14/19 05:35; Admin Dose 750 MG; Start 01/08/19 at 06:00 Morphine Sulfate (morphine) 6 mg Q4H PRN PO SEVERE PAIN LEVEL 7-10 Last administered on 01/14/19 11:10; Admin Dose 6 MG; Start 01/07/19 at 23:30 Ceftriaxone Sodium 50 ml @ 100 mls/hr Q24H IVPB Last administered on 01/13/19 13:24; Admin Dose 100 MLS/HR; Start 01/09/19 at 13:00 Levalbuterol (Xopenex Neb) 0.63 mg Q4H RESP THERAPY HHN Last administered on 01/14/19 09:29; Admin Dose 0.63 MG; Start 01/10/19 at 01:00 Voriconazole (Vfend) 200 mg BID PO Last administered on 01/14/19 08:42; Admin Dose 200 MG; Start 01/11/19 at 13:00 HAYLEE ENGLE NP Jan 14, 2019 12:24
[2019-01-14] MEDS: CEFTRIAXONE 1 GM/50 ML (PMX) 50 ML IVPB SCH (13:09)
[2019-01-14 13:45] VITALS: BP 128/85; PULSE 94; RESP 20
--- NOTE | 2019-01-14 14:18 | PN ---
Date/Time of Note Date/Time of Note DATE: 01/14/19 TIME: 14:13 Assessment/Plan VTE Prophylaxis Risk score (from Ns)>0 risk: 4 SCD applied (from Nsg): Yes Pharmacological prophylaxis: other Lines/Catheters IV Catheter Type (from Rust): Peripheral IV Urinary Cath still in place: No Assessment/Plan Hospital Course S: Patient still having some mild hemoptysis. Tolerating diet. Seen by pulmonary infectious disease teams earlier today. No fevers. Referred for [facility], apparently was not able to be accepted there, per case management. O: VS - see below PHYSICAL EXAMINATION: GENERAL: lying in bed, no acute distress HEENT: Pupils are equal, round, react to light. Extraocular muscles are intact. NECK: Supple. No thyromegaly. LUNGS: Distant breath sounds bilaterally. CARDIOVASCULAR: S1, S2 heard. No rubs or gallops. ABDOMEN: Soft, nontender, nondistended. Normal bowel sounds. No rebound or guarding. MUSCULOSKELETAL: No lower extremity edema bilaterally. NEUROLOGIC: No focal deficits. 2D ECHO (01/02/19) Conclusions: Normal left ventricular systolic function. Normal left ventricular cavity size. Mild concentric left ventricular hypertrophy. Ejection fraction is visually estimated at 55-60 %. Tissue Doppler/Mitral Doppler indices are consistent with impaired relaxation (Stage I diastolic dysfunction). Mild enlargement of right ventricle. Mild right ventricular hypokinesis. There is severe enlargement of right atrium. Mild mitral annular calcification. Trace mitral regurgitation. No significant aortic stenosis or insufficiency. Aortic cusps appear mildly calcified. s/p Tricuspid valve replacement. TV vmax 2.84cm. Max PG 32mmHg. Mean PG 19 mmHg. Estimated peak PA systolic pressure 45 mmHg. There is moderate tricuspid regurgitation. MADINA - January 08, 2019: FINDINGS: 1. Grossly normal left ventricular size and systolic function. 2. No definite findings of patent foramen ovale or other interatrial septal defect with color flow Doppler interrogation in interatrial septum only. 3. Normal-appearing aortic valve apparatus, no aortic regurgitation. 4. Normal-appearing mitral valve apparatus with trace to mild mitral regurgitation. 5. Tricuspid valve, status post repair with thickened leaflets and moderate to severe mitral regurgitation. No definite vegetations, but I cannot completely rule out given the TR and thickening of baseline valve. 6. The patient's permanent pacemaker leads within the RA with mild increase hyperechoic structure within them. I cannot completely rule out associated vegetations on these leads, although not typical. 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 CT chest with IV contrast January 10, 2019: IMPRESSION: 1. Patchy bilateral pulmonary consolidation is noted, greatest in the left lingula, concerning for multilobar pneumonia. Atypical infectious etiologies (tuberculosis, fungal infection) are not excluded. 2. Multiple thin-walled pulmonary cavities are seen bilaterally, new when compared to the prior CT, likely chronic sequela of prior infection/inflammation. 3. There is nonspecific prominence of mediastinal and hilar lymph nodes, possibly reactive. Prominent supraclavicular lymph nodes are noted as well, of uncertain etiology. 4. Mild bilateral pleural effusions. 5. Mild cardiomegaly. Coronary arterial and aortic atherosclerotic calcifications. Assessment/Plan: 28-year-old man coming in with productive cough, possible hem optysis for last 7 to 10 days prior to admission, with signs of leukocytosis and pneumonia with a prior history of IV drug abuse, endocarditis, pacemaker and pulmonary embolism and tricuspid valve repair. # Cough and hemoptysis + Hypoxia -CT chest results from January 10, 2019 results reviewed- Hypoxia still somewhat persistent; patient has required nasal cannula, although we are going to try to wean him down off of this today- Hemoptysis still present but less in intensity -Continue broad spectrum antibiotics, low-dose IV fluids, Tylenol p.r.n. pain and fevers. -Again, January [address] chest showed patchy infiltrates throughout; cavitary lesions which may represent old septic emboli. -There are also possible fungal balls. Pending crypto, cocci, aspergillus [id number] results of these tests -Follow-up recommendation from pulmonary Dr. Mcduffie following, and infectious disease # Bacteremia- Blood cultures growing 2/2 bottles corynebacteria- MADINA indeterminate for vegetations on tricuspid valve. 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 -Monitor for withdrawal, counseled on cessation. # History of prior pacemaker-monitor for now, continue current cardiac medications, follow cardiology recommendations # History of peptic ulcer disease - H2 sharona. Otherwise, no present issues. Result Diagram: 01/14/19 0509 01/14/19 0509 Results 24hrs Laboratory Tests Test 01/14/19 05:09 White Blood Count 9.0 Red Blood Count 3.62 L Hemoglobin 9.8 L Hematocrit 30.7 L Mean Corpuscular Volume 84.8 Mean Corpuscular Hemoglobin 27.1 L Mean Corpuscular Hemoglobin Concent 31.9 L Red Cell Distribution Width 16.0 H Platelet Count 282 Mean Platelet Volume 9.2 Immature Granulocytes % 0.800 H Neutrophils % 69.1 Lymphocytes % 14.8 L Monocytes % 4.8 Eosinophils % 9.6 H Basophils % 0.9 Nucleated Red Blood Cells % 0.0 Immature Granulocytes # 0.070 H Neutrophils # 6.2 Lymphocytes # 1.3 Monocytes # 0.4 Eosinophils # 0.9 H Basophils # 0.1 Nucleated Red Blood Cells # 0.0 Sodium Level 139 Potassium Level 4.3 Chloride Level 103 Carbon Dioxide Level 27 Anion Gap 9 Blood Urea Nitrogen 13 Creatinine 0.79 Est Glomerular Filtrat Rate mL/min > 60 Glucose Level 97 Calcium Level 9.1 Exam/Review of Systems Exam Vitals Vital Signs Date Temp Pulse Resp B/P (MAP) Pulse Ox O2 O2 Flow FiO2 Time Delivery Rate 01/14/19 98.3 94 20 128/85 99 13:45 (99) 01/14/19 Nasal 4.0 12:43 Cannula Intake and Output 01/13/19 01/13/19 01/14/19 1515:00 23:00 07:00 IntakeIntake Total 1610 ml 840 ml 650 ml OutputOutput Total 2125 ml 2450 ml 2100 ml BalanceBalance -515 ml -1610 ml -1450 ml Results Results 24hrs Laboratory Tests Test 01/14/19 05:09 White Blood Count 9.0 Red Blood Count 3.62 L Hemoglobin 9.8 L Hematocrit 30.7 L Mean Corpuscular Volume 84.8 Mean Corpuscular Hemoglobin 27.1 L Mean Corpuscular Hemoglobin Concent 31.9 L Red Cell Distribution Width 16.0 H Platelet Count 282 Mean Platelet Volume 9.2 Immature Granulocytes % 0.800 H Neutrophils % 69.1 Lymphocytes % 14.8 L Monocytes % 4.8 Eosinophils % 9.6 H Basophils % 0.9 Nucleated Red Blood Cells % 0.0 Immature Granulocytes # 0.070 H Neutrophils # 6.2 Lymphocytes # 1.3 Monocytes # 0.4 Eosinophils # 0.9 H Basophils # 0.1 Nucleated Red Blood Cells # 0.0 Sodium Level 139 Potassium Level 4.3 Chloride Level 103 Carbon Dioxide Level 27 Anion Gap 9 Blood Urea Nitrogen 13 Creatinine 0.79 Est Glomerular Filtrat Rate mL/min > 60 Glucose Level 97 Calcium Level 9.1 Medications Medication Current Medications IV Flush (NS 3 ml) 3 ml PER PROTOCOL IV ; Start 12/31/18 at 18:30 Ondansetron HCl (Zofran Inj) 4 mg Q6H PRN IV NAUSEA/VOMITING Last administered on 01/10/19 14:22; Admin Dose 4 MG; Start 12/31/18 at 18:30 Acetaminophen (Tylenol Tab) 650 mg Q6H PRN PO .PAIN 1-3 OR TEMP Last administered on 01/03/19 11:17; Admin Dose 650 MG; Start 12/31/18 at 18:30 Acetaminophen/ Hydrocodone Bitart ([place] (5/325)) 1 tab Q6H PRN PO .MOD PAIN 4- 6 Last administered on 01/09/19 09:06; Admin Dose 1 TAB; Start 12/31/18 at 18:30 Docusate Sodium (Colace) 100 mg Q12H PRN PO .CONSTIPATION; Start 12/31/18 at 18:30 Magnesium Hydroxide (Milk Of Mag) 30 ml DAILY PRN PO .CONSTIPATION; Start 12/31/18 at 18:30 Albuterol/ Ipratropium (Duoneb) 3 ml Q4H RESP THERAPY PRN HHN SHORTNESS OF BREATH Last administered on 01/09/19 19:19; Admin Dose 3 ML; Start 12/31/18 at 18:30 Hydralazine HCl (Apresoline) 10 mg Q6H PRN IV ELEVATED BLOOD PRESSURE; Start 12/31/18 at 18:30 Nitroglycerin (Nitroglycerin (Sl Tab) 0.4 Mg) 1 tab Q5M PRN SL ANGINA; Start 12/31/18 at 18:30 Guaifenesin (Robitussin Liquid Cup) 200 mg Q4H PRN PO COUGH Last administered on 01/14/19 11:10; Admin Dose 200 MG; Start 01/01/19 at 11:30 Ibuprofen (Motrin) 600 mg Q6H PRN PO MILD PAIN LEVEL 1-3 Last administered on 01/03/19 12:14; Admin Dose 600 MG; Start 01/01/19 at 17:30 Phenol (Cepastat Lozenge) 1 lozenge Q1H PRN MT COUGH Last administered on 01/09/19 09:06; Admin Dose 1 LOZENGE; Start 01/02/19 at 12:30 Famotidine (Pepcid) 20 mg DAILY PO Last administered on 01/14/19 08:42; Admin Dose 20 MG; Start 01/03/19 at 09:00 Levofloxacin (Levaquin) 750 mg DAILY@06 PO Last administered on 01/14/19 05:35; Admin Dose 750 MG; Start 01/08/19 at 06:00 Morphine Sulfate (morphine) 6 mg Q4H PRN PO SEVERE PAIN LEVEL 7-10 Last administered on 01/14/19 11:10; Admin Dose 6 MG; Start 01/07/19 at 23:30 Ceftriaxone Sodium 50 ml @ 100 mls/hr Q24H IVPB Last administered on 01/14/19 13:09; Admin Dose 100 MLS/HR; Start 01/09/19 at 13:00 Levalbuterol (Xopenex Neb) 0.63 mg Q4H RESP THERAPY HHN Last administered on 01/14/19 12:43; Admin Dose 0.63 MG; Start 01/10/19 at 01:00 Voriconazole (Vfend) 200 mg BID PO Last administered on 01/14/19 08:42; Admin Dose 200 MG; Start 01/11/19 at 13:00 ROWAN OVALLE Jan 14, 2019 14:18
[2019-01-14 20:02] VITALS: BP 131/83; PULSE 100; RESP 18
[2019-01-14] MEDS: IBUPROFEN 600 MG TAB PO PRN (20:18)
[2019-01-15] MEDS: GUAIFENESIN 20 MG/ML 5ML CUP PO PRN ×3 (00:50→13:21)
[2019-01-15] MEDS: HYDROCODONE/APAP (5/325) TAB PO PRN (00:50)
[2019-01-15] MEDS: LEVALBUTEROL (NEB) 0.63 MG/3 ML AMP HHN SCH ×5 (01:29→20:29)
[2019-01-15 01:38] VITALS: BP 133/82; PULSE 79; RESP 18
[2019-01-15] MEDS: LEVOFLOXACIN 750 MG TABLET PO SCH (05:34)
[2019-01-15] MEDS: IBUPROFEN 600 MG TAB PO PRN (05:34)
[2019-01-15 07:56] VITALS: BP 119/78; PULSE 89; RESP 16
[2019-01-15] MEDS: VORICONAZOLE 200 MG TAB PO SCH ×2 (09:08→20:20)
[2019-01-15] MEDS: FAMOTIDINE 20 MG TAB PO SCH (09:08)
--- NOTE | 2019-01-15 09:34 | CONS ---
Assessment/Plan Assessment/Plan Hospital Course (Demo Recall) No acute events, looks comfortable, no fevers Microbiology: Blood culture on admission grew Corynebacterium species. Repeat blood cultures on January 01 and January 11 negative HIV serology negative. Antimicrobials: Levaquin, Cefepime, Vfend. Assessment: 1. S/p sepsis present on admission, resolving 2. Community-acquired pneumonia with repeat CT notes multiple thin-walled cavities dense infiltrates and possible mycetoma. 3. Hemoptysis 4. History of endocarditis==> MADINA indeterminate for vegetations on tricuspid valve 5. IV drug abuse 6. Coronary artery disease with a history of tricuspid valve replacement and permanent pacemaker placement 6. Bacteremia cw contaminant Plan: Remains stable, anticipate dc on Rocephin and Vfend for 4 more weeks, f/u cocci serology Consultation Date/Type/Reason Admit Date/Time Dec 31, 2018 at 18:14 Initial Consult Date Type of Consult id Requesting Provider: ALEX CLARKE MD Date/Time of Note DATE: 01/15/19 TIME: 09:33 Exam/Review of Systems Exam Vitals Vital Signs Date Temp Pulse Resp B/P (MAP) Pulse Ox O2 O2 Flow FiO2 Time Delivery Rate 01/15/19 90 20 94 21 08:50 01/15/19 97.7 119/78 07:56 (92) 01/15/19 Nasal 2.0 05:33 Cannula Intake and Output 01/14/19 01/14/19 01/15/19 1515:00 23:00 07:00 IntakeIntake Total 2090 ml 1440 ml 690 ml OutputOutput Total 4250 ml 1450 ml 2050 ml BalanceBalance -2160 ml -10 ml -1360 ml Results Result Diagram: 01/15/19 0440 01/15/19 0440 Results 24hrs Laboratory Tests Test 01/15/19 04:40 White Blood Count 8.6 Red Blood Count 3.43 L Hemoglobin 9.2 L Hematocrit 29.0 L Mean Corpuscular Volume 84.5 Mean Corpuscular Hemoglobin 26.8 L Mean Corpuscular Hemoglobin Concent 31.7 L Red Cell Distribution Width 15.6 H Platelet Count 260 Mean Platelet Volume 9.0 Immature Granulocytes % 0.900 H Neutrophils % 66.1 Lymphocytes % 14.7 L Monocytes % 6.6 Eosinophils % 10.8 H Basophils % 0.9 Nucleated Red Blood Cells % 0.0 Immature Granulocytes # 0.080 H Neutrophils # 5.7 Lymphocytes # 1.3 Monocytes # 0.6 Eosinophils # 0.9 H Basophils # 0.1 Nucleated Red Blood Cells # 0.0 Sodium Level 140 Potassium Level 3.7 Chloride Level 103 Carbon Dioxide Level 29 Anion Gap 8 Blood Urea Nitrogen 13 Creatinine 0.92 Est Glomerular Filtrat Rate mL/min > 60 Glucose Level 97 Calcium Level 8.9 Medications Medication Current Medications IV Flush (NS 3 ml) 3 ml PER PROTOCOL IV ; Start 12/31/18 at 18:30 Ondansetron HCl (Zofran Inj) 4 mg Q6H PRN IV NAUSEA/VOMITING Last administered on 01/10/19 14:22; Admin Dose 4 MG; Start 12/31/18 at 18:30 Acetaminophen (Tylenol Tab) 650 mg Q6H PRN PO .PAIN 1-3 OR TEMP Last administer ed on 01/03/19at 11:17; Admin Dose 650 MG; Start 12/31/18 at 18:30 Acetaminophen/ Hydrocodone Bitart ([place] (5/325)) 1 tab Q6H PRN PO .MOD PAIN 4- 6 Last administered on 01/15/19at 00:50; Admin Dose 1 TAB; Start 12/31/18 at 18:30 Docusate Sodium (Colace) 100 mg Q12H PRN PO .CONSTIPATION; Start 12/31/18 at 18:30 Magnesium Hydroxide (Milk Of Mag) 30 ml DAILY PRN PO .CONSTIPATION; Start 12/31/18 at 18:30 Albuterol/ Ipratropium (Duoneb) 3 ml Q4H RESP THERAPY PRN HHN SHORTNESS OF BREATH Last administered on 01/09/19 19:19; Admin Dose 3 ML; Start 12/31/18 at 18:30 Hydralazine HCl (Apresoline) 10 mg Q6H PRN IV ELEVATED BLOOD PRESSURE; Start 12/31/18 at 18:30 Nitroglycerin (Nitroglycerin (Sl Tab) 0.4 Mg) 1 tab Q5M PRN SL ANGINA; Start 12/31/18 at 18:30 Guaifenesin (Robitussin Liquid Cup) 200 mg Q4H PRN PO COUGH Last administered on 01/15/19at 05:34; Admin Dose 200 MG; Start 01/01/19 at 11:30 Ibuprofen (Motrin) 600 mg Q6H PRN PO MILD PAIN LEVEL 1-3 Last administered on 01/15/19 05:34; Admin Dose 600 MG; Start 01/01/19 at 17:30 Phenol (Cepastat Lozenge) 1 lozenge Q1H PRN MT COUGH Last administered on 01/09/19 09:06; Admin Dose 1 LOZENGE; Start 01/02/19 at 12:30 Famotidine (Pepcid) 20 mg DAILY PO Last administered on 01/15/19 09:08; Admin Dose 20 MG; Start 01/03/19 at 09:00 Levofloxacin (Levaquin) 750 mg DAILY@06 PO Last administered on 01/15/19 05:34; Admin Dose 750 MG; Start 01/08/19 at 06:00 Morphine Sulfate (morphine) 6 mg Q4H PRN PO SEVERE PAIN LEVEL 7-10 Last administered on 01/14/19 20:19; Admin Dose 6 MG; Start 01/07/19 at 23:30 Ceftriaxone Sodium 50 ml @ 100 mls/hr Q24H IVPB Last administered on 01/14/19 13:09; Admin Dose 100 MLS/HR; Start 01/09/19 at 13:00 Levalbuterol (Xopenex Neb) 0.63 mg Q4H RESP THERAPY HHN Last administered on 01/15/19 08:49; Admin Dose 0.63 MG; Start 01/10/19 at 01:00 Voriconazole (Vfend) 200 mg BID PO Last administered on 01/15/19 09:08; Admin Dose 200 MG; Start 01/11/19 at 13:00 HAYLEE ENGLE NP Jan 15, 2019 09:34
--- NOTE | 2019-01-15 11:26 | CONS ---
Assessment/Plan Assessment/Plan Assessment/Plan (Daily) Assessment and recommendations; 1. Patient admitted for bilateral pneumonia likely septic embolism to lungs from endocarditis. Currently on appropriate antimicrobial regimen with significant overall clinical improvement. Most recent blood cultures are negative. 2. History of endocarditis with tricuspid valve replacement in the past. 3. Intravenous drug abuse. 4. Mild anemia. Continue current supportive care. Antibiotics per ID recommendations. Consultation Date/Type/Reason Admit Date/Time Dec 31, 2018 at 18:14 Initial Consult Date Type of Consult Pulmonary Patient's condition is stable. Patient is ambulatory in the room. Complains of very minimal shortness of breath with exertion. Denies any further hemoptysis. General exam; young male, awake alert, currently in no distress. Requesting Provider: ALEX CLARKE MD Date/Time of Note DATE: 01/15/19 TIME: 11:24 24 HR Interval Summary Free Text/Dictation Patient's condition is stable. Denies any chest pain, coughing, wheezing, sputum production or hemoptysis. General exam; young male, awake alert, currently in no distress. Exam/Review of Systems Exam Vitals Vital Signs Date Temp Pulse Resp B/P (MAP) Pulse Ox O2 O2 Flow FiO2 Time Delivery Rate 01/15/19 90 20 94 21 08:50 01/15/19 97.7 119/78 07:56 (92) 01/15/19 Nasal 2.0 05:33 Cannula Intake and Output 01/14/19 01/14/19 01/15/19 1515:00 23:00 07:00 IntakeIntake Total 2090 ml 1440 ml 690 ml OutputOutput Total 4250 ml 1450 ml 2050 ml BalanceBalance -2160 ml -10 ml -1360 ml Exam H EENT exam; supple neck, no JVD. No lymphadenopathy. Midline trachea. No thyromegaly. Patient has fair dentition. No neck masses. Chest exam; diminished but clear breath sounds. S1-S2 audible, soft systolic murmur. Regular rhythm. There is a well-healed sternal scar. Abdomen exam; soft, nontender. No organomegaly. Bowel sounds audible. Extremity exam; no peripheral edema. Patient does have multiple scars. [employer]GER exam;no focal deficit. Results Result Diagram: 01/15/19 0440 01/15/19439 Results 24hrs Laboratory Tests Test 01/15/19 04:40 White Blood Count 8.6 Red Blood Count 3.43 L Hemoglobin 9.2 L Hematocrit 29.0 L Mean Corpuscular Volume 84.5 Mean Corpuscular Hemoglobin 26.8 L Mean Corpuscular Hemoglobin Concent 31.7 L Red Cell Distribution Width 15.6 H Platelet Count 260 Mean Platelet Volume 9.0 Immature Granulocytes % 0.900 H Neutrophils % 66.1 Lymphocytes % 14.7 L Monocytes % 6.6 Eosinophils % 10.8 H Basophils % 0.9 Nucleated Red Blood Cells % 0.0 Immature Granulocytes # 0.080 H Neutrophils # 5.7 Lymphocytes # 1.3 Monocytes # 0.6 Eosinophils # 0.9 H Basophils # 0.1 Nucleated Red Blood Cells # 0.0 Sodium Level 140 Potassium Level 3.7 Chloride Level 103 Carbon Dioxide Level 29 Anion Gap 8 Blood Urea Nitrogen 13 Creatinine 0.92 Est Glomerular Filtrat Rate mL/min > 60 Glucose Level 97 Calcium Level 8.9 Medications Medication Current Medications IV Flush (NS 3 ml) 3 ml PER PROTOCOL IV ; Start 12/31/18 at 18:30 Ondansetron HCl (Zofran Inj) 4 mg Q6H PRN IV NAUSEA/VOMITING Last administered on 01/10/19 14:22; Admin Dose 4 MG; Start 12/31/18 at 18:30 Acetaminophen (Tylenol Tab) 650 mg Q6H PRN PO .PAIN 1-3 OR TEMP Last administ ered on 01/03/19 11:17; Admin Dose 650 MG; Start 12/31/18 at 18:30 Acetaminophen/ Hydrocodone Bitart ([place] (5/325)) 1 tab Q6H PRN PO .MOD PAIN 4- 6 Last administered on 01/15/19at 00:50; Admin Dose 1 TAB; Start 12/31/18 at 18:30 Docusate Sodium (Colace) 100 mg Q12H PRN PO .CONSTIPATION; Start 12/31/18 at 18:30 Magnesium Hydroxide (Milk Of Mag) 30 ml DAILY PRN PO .CONSTIPATION; Start 12/31/18 at 18:30 Albuterol/ Ipratropium (Duoneb) 3 ml Q4H RESP THERAPY PRN HHN SHORTNESS OF BREATH Last administered on 01/09/19 19:19; Admin Dose 3 ML; Start 12/31/18 at 18:30 Hydralazine HCl (Apresoline) 10 mg Q6H PRN IV ELEVATED BLOOD PRESSURE; Start 12/31/18 at 18:30 Nitroglycerin (Nitroglycerin (Sl Tab) 0.4 Mg) 1 tab Q5M PRN SL ANGINA; Start 12/31/18 at 18:30 Guaifenesin (Robitussin Liquid Cup) 200 mg Q4H PRN PO COUGH Last administered on 01/15/19 05:34; Admin Dose 200 MG; Start 01/01/19 at 11:30 Ibuprofen (Motrin) 600 mg Q6H PRN PO MILD PAIN LEVEL 1-3 Last administered on 01/15/19 05:34; Admin Dose 600 MG; Start 01/01/19 at 17:30 Phenol (Cepastat Lozenge) 1 lozenge Q1H PRN MT COUGH Last administered on 01/09/19 09:06; Admin Dose 1 LOZENGE; Start 01/02/19 at 12:30 Famotidine (Pepcid) 20 mg DAILY PO Last administered on 01/15/19 09:08; Admin Dose 20 MG; Start 01/03/19 at 09:00 Levofloxacin (Levaquin) 750 mg DAILY@06 PO Last administered on 01/15/19 05:34; Admin Dose 750 MG; Start 01/08/19 at 06:00 Morphine Sulfate (morphine) 6 mg Q4H PRN PO SEVERE PAIN LEVEL 7-10 Last administered on 01/14/19 20:19; Admin Dose 6 MG; Start 01/07/19 at 23:30 Ceftriaxone Sodium 50 ml @ 100 mls/hr Q24H IVPB Last administered on 01/14/19 13:09; Admin Dose 100 MLS/HR; Start 01/09/19 at 13:00 Levalbuterol (Xopenex Neb) 0.63 mg Q4H RESP THERAPY HHN Last administered on 01/15/19 08:49; Admin Dose 0.63 MG; Start 01/10/19 at 01:00 Voriconazole (Vfend) 200 mg BID PO Last administered on 01/15/19 09:08; Admin Dose 200 MG; Start 01/11/19 at 13:00 CARLOS TRIVEDI Jan 15, 2019 11:25
[2019-01-15] MEDS: CEFTRIAXONE 1 GM/50 ML (PMX) 50 ML IVPB SCH (13:21)
[2019-01-15] MEDS: morphine LIQ (10 MG/5 ML) CUP PO PRN (13:22)
--- NOTE | 2019-01-15 14:36 | CONS ---
Assessment/Plan Assessment/Plan Hospital Course (Demo Recall) IMPRESSION: 1. Bacteremia, assess for intracardiac source of infection, rule out endocarditis.- s/p MADINA 01/08 with chronic prior changes of TVR and nonspecific findings associated with pacer leads. No definite findings of vegetations. bLD CX'S 01/01 remain negative to date 2. History of permanent pacemaker. 3. History of tricuspid valve repair. 4. History of IV drug abuse with ongoing drug usage and toxicology positive for amphetamines and cannabinoids. 5. History of peptic ulcer disease. 6. Cough and hemoptysis.- s/p chest CT with cavitary lesions Recc: -tele -would f/u cx data as MADINA without definite findings of ongoing vegetations but with chronic changes -Contineu abx's and voriconazole after chest CT findings and follow-up cx data -Pulmonary following and ID -To be d/c'd on 4 weeks of voriconazole -awaiting cocci serologies Consultation Date/Type/Reason Admit Date/Time Dec 31, 2018 at 18:14 Initial Consult Date 01/08/19 Type of Consult Cardiology Reason for Consultation bacteremia Requesting Provider: ALEX CLARKE MD Date/Time of Note DATE: 01/15/19 TIME: 14:34 Exam/Review of Systems Vital Signs Vitals Vital Signs Date Temp Pulse Resp B/P (MAP) Pulse Ox O2 O2 Flow FiO2 Time Delivery Rate 01/15/19 90 20 94 21 08:50 01/15/19 Nasal 3.0 08:00 Cannula 01/15/19 97.7 119/78 07:56 (92) Intake and Output 01/14/19 01/14/19 01/15/19 1515:00 23:00 07:00 IntakeIntake Total 2090 ml 1440 ml 690 ml OutputOutput Total 4250 ml 1450 ml 2050 ml BalanceBalance -2160 ml -10 ml -1360 ml Exam Exam Review of Systems: CONSTITUTIONAL: No fevers, chills. PULMONARY: No sob CARDIOVASCULAR: No chest pain/palpitations GASTROINTESTINAL: No nausea/vomiting. GENITOURINARY: No hematuria/dysuria. MUSCULOSKELETAL: No myagias/arthalgias. PSYCHIATRIC: The patient denies depression. NEUROLOGIC: No weakness Constitutional: alert, oriented Psych: no complaints Head: normocephalic ENMT: mucosa pink and moist Neck: supple, jvd (9 cm water) Respiratory: diminished breath sounds (at bases/B) Cardiovascular: regular rate and rhythm Gastrointestinal: soft, non-tender Musculoskeletal: muscle tone (normal) Extremities: edema (none) Labs Result Diagram: 01/15/190 01/15/19 0440 Results 24hrs Laboratory Tests Test 01/15/19 04:40 White Blood Count 8.6 Red Blood Count 3.43 L Hemoglobin 9.2 L Hematocrit 29.0 L Mean Corpuscular Volume 84.5 Mean Corpuscular Hemoglobin 26.8 L Mean Corpuscular Hemoglobin Concent 31.7 L Red Cell Distribution Width 15.6 H Platelet Count 260 Mean Platelet Volume 9.0 Immature Granulocytes % 0.900 H Neutrophils % 66.1 Lymphocytes % 14.7 L Monocytes % 6.6 Eosinophils % 10.8 H Basophils % 0.9 Nucleated Red Blood Cells % 0.0 Immature Granulocytes # 0.080 H Neutrophils # 5.7 Lymphocytes # 1.3 Monocytes # 0.6 Eosinophils # 0.9 H Basophils # 0.1 Nucleated Red Blood Cells # 0.0 Sodium Level 140 Potassium Level 3.7 Chloride Level 103 Carbon Dioxide Level 29 Anion Gap 8 Blood Urea Nitrogen 13 Creatinine 0.92 Est Glomerular Filtrat Rate mL/min > 60 Glucose Level 97 Calcium Level 8.9 Medications Medications Current Medications IV Flush (NS 3 ml) 3 ml PER PROTOCOL IV ; Start 12/31/18 at 18:30 Ondansetron HCl (Zofran Inj) 4 mg Q6H PRN IV NAUSEA/VOMITING Last administered on 01/10/19 14:22; Admin Dose 4 MG; Start 12/31/18 at 18:30 Acetaminophen (Tylenol Tab) 650 mg Q6H PRN PO .PAIN 1-3 OR TEMP Last a dministered on 01/03/19at 11:17; Admin Dose 650 MG; Start 12/31/18 at 18:30 Acetaminophen/ Hydrocodone Bitart ([place] (5/325)) 1 tab Q6H PRN PO .MOD PAIN 4- 6 Last administered on 01/15/19at 00:50; Admin Dose 1 TAB; Start 12/31/18 at 18:30 Docusate Sodium (Colace) 100 mg Q12H PRN PO .CONSTIPATION; Start 12/31/18 at 18:30 Magnesium Hydroxide (Milk Of Mag) 30 ml DAILY PRN PO .CONSTIPATION; Start 12/31 at 18:30 Albuterol/ Ipratropium (Duoneb) 3 ml Q4H RESP THERAPY PRN HHN SHORTNESS OF BREATH Last administered on 01/09/19 19:19; Admin Dose 3 ML; Start 12/31/18 at 18:30 Hydralazine HCl (Apresoline) 10 mg Q6H PRN IV ELEVATED BLOOD PRESSURE; Start 12/31/18 at 18:30 Nitroglycerin (Nitroglycerin (Sl Tab) 0.4 Mg) 1 tab Q5M PRN SL ANGINA; Start 12/31/18 at 18:30 Guaifenesin (Robitussin Liquid Cup) 200 mg Q4H PRN PO COUGH Last administered on 01/15/19 13:21; Admin Dose 200 MG; Start 01/01/19 at 11:30 Ibuprofen (Motrin) 600 mg Q6H PRN PO MILD PAIN LEVEL 1-3 Last administered on 01/15/19 05:34; Admin Dose 600 MG; Start 01/01/19 at 17:30 Phenol (Cepastat Lozenge) 1 lozenge Q1H PRN MT COUGH Last administered on 01/09/19 09:06; Admin Dose 1 LOZENGE; Start 01/02/19 at 12:30 Famotidine (Pepcid) 20 mg DAILY PO Last administered on 01/15/19 09:08; Admin Dose 20 MG; Start 01/03/19 at 09:00 Levofloxacin (Levaquin) 750 mg DAILY@06 PO Last administered on 01/15/19 05:34; Admin Dose 750 MG; Start 01/08/19 at 06:00 Morphine Sulfate (morphine) 6 mg Q4H PRN PO SEVERE PAIN LEVEL 7-10 Last admi nistered on 01/15/19 13:22; Admin Dose 6 MG; Start 01/07/19 at 23:30 Ceftriaxone Sodium 50 ml @ 100 mls/hr Q24H IVPB Last administered on 01/15/19 13:21; Admin Dose 100 MLS/HR; Start 01/09/19 at 13:00 Levalbuterol (Xopenex Neb) 0.63 mg Q4H RESP THERAPY HHN Last administered on 3/13/19at 08:49; Admin Dose 0.63 MG; Start 01/10/19 at 01:00 Voriconazole (Vfend) 200 mg BID PO Last administered on 01/15/19at 09:08; Admin Dose 200 MG; Start 01/11/19 at 13:00 ALEX TRAN Jan 15, 2019 14:36
[2019-01-15 14:41] VITALS: BP 156/79; PULSE 71; RESP 16
--- NOTE | 2019-01-15 14:55 | PN ---
Date/Time of Note Date/Time of Note DATE: 01/15/19 TIME: 14:51 Assessment/Plan VTE Prophylaxis Risk score (from Ns)>0 risk: 4 SCD applied (from Nsg): Yes Pharmacological prophylaxis: other Lines/Catheters IV Catheter Type [facility]from [facility] [place] [facility] Urinary Cath still in place: No Assessment/Plan Hospital Course S: Patient still having some mild hemoptysis. Tolerating diet. Seen by [facility] infectious disease teams earlier today. No fevers. Referred [facility], apparently was not able to be accepted there, per case management. O: VS - see below PHYSICAL EXAMINATION: GENERAL: lying in bed, no acute distress HEENT: Pupils are equal, round, react to light. Extraocular muscles are intact. NECK: Supple. No thyromegaly. LUNGS: Distant breath sounds bilaterally. CARDIOVASCULAR: S1, S2 heard. No rubs or gallops. ABDOMEN: Soft, nontender, nondistended. Normal bowel sounds. No rebound or guarding. MUSCULOSKELETAL: No lower extremity edema bilaterally. NEUROLOGIC: No focal deficits. 2D ECHO (01/02/19) Conclusions: Normal left ventricular systolic function. Normal left ventricular cavity size. Mild concentric left ventricular hypertrophy. Ejection fraction is visually estimated at 55-60 %. Tissue Doppler/Mitral Doppler indices are consistent with impaired relaxation (Stage I diastolic dysfunction). Mild enlargement of right ventricle. Mild right ventricular hypokinesis. There is severe enlargement of right atrium. Mild mitral annular calcification. Trace mitral regurgitation. No significant aortic stenosis or insufficiency. Aortic cusps appear mildly calcified. s/p Tricuspid valve replacement. TV vmax 2.84cm. Max PG 32mmHg. Mean PG 19 mmHg. Estimated peak PA systolic pressure 45 mmHg. There is moderate tricuspid regurgitation. MADINA - January 08, 2019: FINDINGS: 1. Grossly normal left ventricular size and systolic function. 2. No definite findings of patent foramen ovale or other interatrial septal defect with color flow Doppler interrogation in interatrial septum only. 3. Normal-appearing aortic valve apparatus, no aortic regurgitation. 4. Normal-appearing mitral valve apparatus with trace to mild mitral regurgitation. 5. Tricuspid valve, status post repair with thickened leaflets and moderate to severe mitral regurgitation. No definite vegetations, but I cannot completely rule out given the TR and thickening of baseline valve. 6. The patient's permanent pacemaker leads within the RA with mild increase hyperechoic structure within them. I cannot completely rule out associated vegetations on these leads, although not typical. 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 CTA 01/02/2019: IMPRESSION: 1. Bilateral acute pulmonary emboli. 2. A thin web in the mid right main pulmonary artery indicates probable chronic pulmonary embolism. 3. Patchy bilateral air space disease consistent with inflammatory or infectious process. 4. Bilateral cavitary lesions, mostly on the right side. These may indicate septic emboli, abscesses, other infection, or inflammatory process. 5. Diffuse mediastinal and bilateral hilar thickening which may indicate lymphadenopathy, likely reactive. 6. Very small bilateral pleural effusions. 7. Prior cardiac surgery and mild cardiomegaly. 8. Otherwise unremarkable study. Call report: A call report of the findings was made to Dr. Mcduffie on 01/15/2019 at 1245 hours. Of note, the scan was performed on 01/02/2019 but was only reported on 01/15/2019. The delayed report was due to the fact that the images were originally not available. The images may have been obtained, and recorded under a different and incorrect patient name and medical record. Dr. Mcduffie is aware of the issue regarding the delayed report. CT chest with IV contrast January 10, 2019: IMPRESSION: 1. Patchy bilateral pulmonary consolidation is noted, greatest in the left lingula, concerning for multilobar pneumonia. Atypical infectious etiologies (tuberculosis, fungal infection) are not excluded. 2. Multiple thin-walled pulmonary cavities are seen bilaterally, new when compared to the prior CT, likely chronic sequela of prior infection/inflammation. 3. There is nonspecific prominence of mediastinal and hilar lymph nodes, possibly reactive. Prominent supraclavicular lymph nodes are noted as well, of uncertain etiology. 4. Mild bilateral pleural effusions. 5. Mild cardiomegaly. Coronary arterial and aortic atherosclerotic calcifications. Assessment/Plan: 28-year-old man coming in with productive cough, possible hemoptysis for last 7 to 10 days prior to admission, with signs of leukocytosis and pneumonia with a prior history of IV drug abuse, endocarditis, pacemaker and pulmonary embolism and tricuspid valve repair. # Cough and hemoptysis + Hypoxia -we have word today from radiology that the original CTA chest from January 02 does not fact show bilateral acute pulmonary emboli, along with cavitary lesions and possible septic emboli. Also, CT chest results from January 10, 2019 results reviewed- Hypoxia still somewhat persistent; but hemoptysis has resolved -Continue broad spectrum antibiotics, low-dose IV fluids, Tylenol p.r.n. pain and fevers. -Per discussion with radiology and business info consultant teams, will repeat CTA chest today as well as get lower semi-Doppler studies. We will compared with the January 02 CTA result. Considerations likely will be either anticoagulation versus IVC filter -again will await study results first before deciding this. -Pending crypto, cocci, aspergillus [id number] results of these tests -Follow-up recommendation from pulmonary Dr. Mcduffie following, and infectious disease # Bacteremia- Blood cultures growing 2/2 bottles corynebacteria- MADINA in determinate for vegetations on tricuspid valve. 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 -Monitor for withdrawal, counseled on cessation. # History of prior pacemaker-monitor for now, continue current cardiac medications, follow cardiology recommendations # History of peptic ulcer disease - H2 sharona. Otherwise, no present issues. Result Diagram: 01/15/19 0440 01/15/19 0440 Results 24hrs Laboratory Tests Test 01/15/19 04:40 White Blood Count 8.6 Red Blood Count 3.43 L Hemoglobin 9.2 L Hematocrit 29.0 L Mean Corpuscular Volume 84.5 Mean Corpuscular Hemoglobin 26.8 L Mean Corpuscular Hemoglobin Concent 31.7 L Red Cell Distribution Width 15.6 H Platelet Count 260 Mean Platelet Volume 9.0 Immature Granulocytes % 0.900 H Neutrophils % 66.1 Lymphocytes % 14.7 L Monocytes % 6.6 Eosinophils % 10.8 H Basophils % 0.9 Nucleated Red Blood Cells % 0.0 Immature Granulocytes # 0.080 H Neutrophils # 5.7 Lymphocytes # 1.3 Monocytes # 0.6 Eosinophils # 0.9 H Basophils # 0.1 Nucleated Red Blood Cells # 0.0 Sodium Level 140 Potassium Level 3.7 Chloride Level 103 Carbon Dioxide Level 29 Anion Gap 8 Blood Urea Nitrogen 13 Creatinine 0.92 Est Glomerular Filtrat Rate mL/min > 60 Glucose Level 97 Calcium Level 8.9 Exam/Review of Systems Exam Vitals Vital Signs Date Temp Pulse Resp B/P (MAP) Pulse Ox O2 O2 Flow FiO2 Time Delivery Rate 01/15/19 97.5 71 16 156/79 97 14:41 (104) 01/15/19 21 08:50 01/15/19 Nasal 3.0 08:00 Cannula Intake and Output 01/14/19 01/14/19 01/15/19 1515:00 23:00 07:00 IntakeIntake Total 2090 ml 1440 ml 690 ml OutputOutput Total 4250 ml 1450 ml 2050 ml BalanceBalance -2160 ml -10 ml -1360 ml Results Results 24hrs Laboratory Tests Test 01/15/19 04:40 White Blood Count 8.6 Red Blood Count 3.43 L Hemoglobin 9.2 L Hematocrit 29.0 L Mean Corpuscular Volume 84.5 Mean Corpuscular Hemoglobin 26.8 L Mean Corpuscular Hemoglobin Concent 31.7 L Red Cell Distribution Width 15.6 H Platelet Count 260 Mean Platelet Volume 9.0 Immature Granulocytes % 0.900 H Neutrophils % 66.1 Lymphocytes % 14.7 L Monocytes % 6.6 Eosinophils % 10.8 H Basophils % 0.9 Nucleated Red Blood Cells % 0.0 Immature Granulocytes # 0.080 H Neutrophils # 5.7 Lymphocytes # 1.3 Monocytes # 0.6 Eosinophils # 0.9 H Basophils # 0.1 Nucleated Red Blood Cells # 0.0 Sodium Level 140 Potassium Level 3.7 Chloride Level 103 Carbon Dioxide Level 29 Anion Gap 8 Blood Urea Nitrogen 13 Creatinine 0.92 Est Glomerular Filtrat Rate mL/min > 60 Glucose Level 97 Calcium Level 8.9 Medications Medication Current Medications IV Flush (NS 3 ml) 3 ml PER PROTOCOL IV ; Start 12/31/18 at 18:30 Ondansetron HCl (Zofran Inj) 4 mg Q6H PRN IV NAUSEA/VOMITING Last administered on 01/10/19at 14:22; Admin Dose 4 MG; Start 12/31/18 at 18:30 Acetaminophen (Tylenol Tab) 650 mg Q6H PRN PO .PAIN 1-3 OR TEMP Last administered on 01/03/19at 11:17; Admin Dose 650 MG; Start 12/31/18 at 18:30 Acetaminophen/ Hydrocodone Bitart ([place] (5/325)) 1 tab Q6H PRN PO .MOD PAIN 4- 6 Last administered on 01/15/19 00:50; Admin Dose 1 TAB; Start 12/31/18 at 18:30 Docusate Sodium (Colace) 100 mg Q12H PRN PO .CONSTIPATION; Start 12/31/18 at 18:30 Magnesium Hydroxide (Milk Of Mag) 30 ml DAILY PRN PO .CONSTIPATION; Start 12/31/18 at 18:30 Albuterol/ Ipratropium (Duoneb) 3 ml Q4H RESP THERAPY PRN HHN SHORTNESS OF BREATH Last administered on 01/09/19 19:19; Admin Dose 3 ML; Start 12/31/18 at 18:30 Hydralazine HCl (Apresoline) 10 mg Q6H PRN IV ELEVATED BLOOD PRESSURE; Start 12/31/18 at 18:30 Nitroglycerin (Nitroglycerin (Sl Tab) 0.4 Mg) 1 tab Q5M PRN SL ANGINA; Start 12/31/18 at 18:30 Guaifenesin (Robitussin Liquid Cup) 200 mg Q4H PRN PO COUGH Last administered on 01/15/19 13:21; Admin Dose 200 MG; Start 01/01/19 at 11:30 Ibuprofen (Motrin) 600 mg Q6H PRN PO MILD PAIN LEVEL 1-3 Last administered on 01/15/19 05:34; Admin Dose 600 MG; Start 01/01/19 at 17:30 Phenol (Cepastat Lozenge) 1 lozenge Q1H PRN MT COUGH Last administered on 01/09/19 09:06; Admin Dose 1 LOZENGE; Start 01/02/19 at 12:30 Famotidine (Pepcid) 20 mg DAILY PO Last administered on 01/15/19 09:08; Admin Dose 20 MG; Start 01/03/19 at 09:00 Levofloxacin (Levaquin) 750 mg DAILY@06 PO Last administered on 01/15/19 05:34; Admin Dose 750 MG; Start 01/08/19 at 06:00 Morphine Sulfate (morphine) 6 mg Q4H PRN PO SEVERE PAIN LEVEL 7-10 Last administered on 01/15/19 13:22; Admin Dose 6 MG; Start 3/5/19 at 23:30 Ceftriaxone Sodium 50 ml @ 100 mls/hr Q24H IVPB Last administered on 01/15/19at 13:21; Admin Dose 100 MLS/HR; Start 01/09/19 at 13:00 Levalbuterol (Xopenex Neb) 0.63 mg Q4H RESP THERAPY HHN Last administered on 01/15/19at 08:49; Admin Dose 0.63 MG; Start 01/10/19 at 01:00 Voriconazole (Vfend) 200 mg BID PO Last administered on 01/15/19at 09:08; Admin Dose 200 MG; Start 01/11/19 at 13:00 ROWAN OVALLE Jan 15, 2019 14:55
[2019-01-15] MEDS ORDERED: SOD CHLORIDE 0.9% 100 ML ONE (17:01)
[2019-01-15] MEDS ORDERED: IOHEXOL 100 ML ONE (17:01)
[2019-01-15 19:40] VITALS: BP 134/91; PULSE 98; RESP 18
[2019-01-15] MEDS: ONDANSETRON 4 MG INJ IV PRN (20:18)
[2019-01-16] MEDS: GUAIFENESIN 20 MG/ML 5ML CUP PO PRN ×4 (00:24→23:03)
[2019-01-16] MEDS: morphine LIQ (10 MG/5 ML) CUP PO PRN ×4 (00:25→23:04)
[2019-01-16] MEDS: LEVALBUTEROL (NEB) 0.63 MG/3 ML AMP HHN SCH ×6 (00:34→20:33)
[2019-01-16 01:23] VITALS: BP 127/85; PULSE 82; RESP 18
[2019-01-16] MEDS: LEVOFLOXACIN 750 MG TABLET PO SCH (05:45)
[2019-01-16 07:55] VITALS: BP 119/76; PULSE 79; RESP 19
[2019-01-16] MEDS: VORICONAZOLE 200 MG TAB PO SCH ×2 (09:03→21:22)
[2019-01-16] MEDS: FAMOTIDINE 20 MG TAB PO SCH (09:03)
--- NOTE | 2019-01-16 11:42 | CONS ---
Assessment/Plan Assessment/Plan Assessment/Plan (Daily) Assessment recommendations; 1. Patient admitted with severe sepsis with bilateral pneumonia possibility of endocarditis and septic embolism to lungs with significant clinical improvement. 2. History of intravenous drug use. 3. 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 4. Mild anemia. Continue current supportive care. Antibiotics per ID recommendations. Consultation Date/Type/Reason Admit Date/Time Dec 31, 2018 at 18:14 Initial Consult Date Type of Consult Pulmonary Patient's condition is stable. Patient is ambulatory in the room. Complains of very minimal shortness of breath with exertion. Denies any further hemoptysis. General exam; young male, awake alert, currently in no distress. Requesting Provider: ALEX CLARKE MD Date/Time of Note DATE: 01/16/19 TIME: 11:40 24 HR Interval Summary Free Text/Dictation Patient's condition is stable. Denies any shortness of breath, chest pain, coughing, any further hemoptysis. General exam; young male, awake alert, currently no distress. Exam/Review of Systems Exam Vitals Vital Signs Date Temp Pulse Resp B/P (MAP) Pulse Ox O2 O2 Flow FiO2 Time Delivery Rate 01/16/19 98.1 79 19 119/76 96 07:55 (90) 01/16/19 Nasal 2.0 07:25 Cannula 01/15/19 21 08:50 Intake and Output 01/15/19 01/15/19 01/16/19 1515:00 23:00 07:00 IntakeIntake Total 1280 ml 50 ml OutputOutput Total 600 ml 950 ml 1800 ml BalanceBalance 680 ml -900 ml -1800 ml Exam H EENT exam; supple neck, no JVD. No lymphadenopathy. Midline trachea. No thyromegaly. Patient has fair dentition. No neck masses. Chest exam; clear to auscultation. S1-S2 audible, soft systolic murmur grade 2/6. Murmurs. Regular rhythm. There is a well-healed sternal scar. Abdomen exam; soft, nontender. No organomegaly. Bowel sounds audible. Extremity exam; peripheral edema. Patient does have multiple scars. MANAGER PSYCHIATRY exam; no focal deficit. Results Result Diagram: 01/15/190 01/15/19439 Medications Medication Current Medications IV Flush (NS 3 ml) 3 ml PER PROTOCOL IV ; Start 12/31/18 at 18:30 Ondansetron HCl (Zofran Inj) 4 mg Q6H PRN IV NAUSEA/VOMITING Last administered on 01/15/19 20:18; Admin Dose 4 MG; Start 12/31/18 at 18:30 Acetaminophen (Tylenol Tab) 650 mg Q6H PRN PO .PAIN 1-3 OR TEMP Last admini stered on 01/03/19 11:17; Admin Dose 650 MG; Start 12/31/18 at 18:30 Acetaminophen/ Hydrocodone Bitart ([place] (5/325)) 1 tab Q6H PRN PO .MOD PAIN 4- 6 Last administered on 01/15/19 00:50; Admin Dose 1 TAB; Start 12/31/18 at 18:30 Docusate Sodium (Colace) 100 mg Q12H PRN PO .CONSTIPATION; Start 12/31/18 at 18:30 Magnesium Hydroxide (Milk Of Mag) 30 ml DAILY PRN PO .CONSTIPATION; Start 12/31/18 at 18:30 Albuterol/ Ipratropium (Duoneb) 3 ml Q4H RESP THERAPY PRN HHN SHORTNESS OF BREATH Last administered on 01/09/19 19:19; Admin Dose 3 ML; Start 12/31/18 at 18:30 Hydralazine HCl (Apresoline) 10 mg Q6H PRN IV ELEVATED BLOOD PRESSURE; Start 12/31/18 at 18:30 Nitroglycerin (Nitroglycerin (Sl Tab) 0.4 Mg) 1 tab Q5M PRN SL ANGINA; Start 12/31/18 at 18:30 Guaifenesin (Robitussin Liquid Cup) 200 mg Q4H PRN PO COUGH Last administered on 01/16/19 09:06; Admin Dose 200 MG; Start 01/01/19 at 11:30 Ibuprofen (Motrin) 600 mg Q6H PRN PO MILD PAIN LEVEL 1-3 Last administered on 01/15/19 05:34; Admin Dose 600 MG; Start 01/01/19 at 17:30 Phenol (Cepastat Lozenge) 1 lozenge Q1H PRN MT COUGH Last administered on 01/09/19 09:06; Admin Dose 1 LOZENGE; Start 01/02/19 at 12:30 Famotidine (Pepcid) 20 mg DAILY PO Last administered on 01/16/19 09:03; Admin Dose 20 MG; Start 01/03/19 at 09:00 Levofloxacin (Levaquin) 750 mg DAILY@06 PO Last administered on 01/16/19 05:45; Admin Dose 750 MG; Start 01/08/19 at 06:00 Morphine Sulfate (morphine) 6 mg Q4H PRN PO SEVERE PAIN LEVEL 7-10 Last administered on 01/16/19 09:07; Admin Dose 6 MG; Start 01/07/19 at 23:30 Ceftriaxone Sodium 50 ml @ 100 mls/hr Q24H IVPB Last administered on 01/15/19 13:21; Admin Dose 100 MLS/HR; Start 01/09/19 at 13:00 Levalbuterol (Xopenex Neb) 0.63 mg Q4H RESP THERAPY HHN Last administered on 01/16/19 04:33; Admin Dose 0.63 MG; Start 01/10/19 at 01:00 Voriconazole (Vfend) 200 mg BID PO Last administered on 01/16/19 09:03; Admin Dose 200 MG; Start 01/11/19 at 13:00 CARLOS TRIVEDI Jan 16, 2019 11:42
[2019-01-16] MEDS: CEFTRIAXONE 1 GM/50 ML (PMX) 50 ML IVPB SCH (12:47)
--- NOTE | 2019-01-16 12:54 | CONS ---
Assessment/Plan Assessment/Plan Hospital Course (Demo Recall) IMPRESSION: 1. Bacteremia, assess for intracardiac source of infection, rule out endocarditis.- s/p MADINA 01/08 with chronic prior changes of TVR and nonspecific findings associated with pacer leads. No definite findings of vegetations. bLD CX'S 01/01 remain negative to date 2. History of permanent pacemaker. 3. History of tricuspid valve repair. 4. History of IV drug abuse with ongoing drug usage and toxicology positive for amphetamines and cannabinoids. 5. History of peptic ulcer disease. 6. Cough and hemoptysis.- s/p chest CT with cavitary lesions Recc: -tele -would f/u cx data as MADINA without definite findings of ongoing vegetations but with chronic changes -Contineu abx's and voriconazole after chest CT findings and follow-up cx data -Pulmonary following and ID -To be d/c'd on 4 weeks of voriconazole -? initiation of anticoagulation for PE Consultation Date/Type/Reason Admit Date/Time Dec 31, 2018 at 18:14 Initial Consult Date 01/08/19 Type of Consult Cardiology Reason for Consultation bacteremia Requesting Provider: ALEX CLARKE MD Date/Time of Note DATE: 01/16/19 TIME: 12:51 Exam/Review of Systems Vital Signs Vitals Vital Signs Date Temp Pulse Resp B/P (MAP) Pulse Ox O2 O2 Flow FiO2 Time Delivery Rate 01/16/19 98.1 79 19 119/76 96 07:55 (90) 01/16/19 Nasal 2.0 07:25 Cannula 01/15/19 21 08:50 Intake and Output 01/15/19 01/15/19 01/16/19 1515:00 23:00 07:00 IntakeIntake Total 1280 ml 50 ml OutputOutput Total 600 ml 950 ml 1800 ml BalanceBalance 680 ml -900 ml -1800 ml Exam Exam Review of Systems: CONSTITUTIONAL: No fevers, chills. PULMONARY: No sob CARDIOVASCULAR: No chest pain/palpitations GASTROINTESTINAL: No nausea/vomiting. GENITOURINARY: No hematuria/dysuria. MUSCULOSKELETAL: No myagias/arthalgias. PSYCHIATRIC: The patient denies depression. NEUROLOGIC: No weakness Constitutional: alert Psych: no complaints Head: normocephalic ENMT: mucosa pink and moist Neck: supple, jvd (9 cm water) Respiratory: diminished breath sounds (at bases/B) Cardiovascular: regular rate and rhythm Gastrointestinal: soft, non-tender Musculoskeletal: muscle tone (normal) Extremities: edema (none) Neurological: other (No focal deficits) Labs Result Diagram: 01/15/190 01/15/19 044 Medications Medications Current Medications IV Flush (NS 3 ml) 3 ml PER PROTOCOL IV ; Start 12/31/18 at 18:30 Ondansetron HCl (Zofran Inj) 4 mg Q6H PRN IV NAUSEA/VOMITING Last administered on 01/15/19 20:18; Admin Dose 4 MG; Start 12/31/18 at 18:30 Acetaminophen (Tylenol Tab) 650 mg Q6H PRN PO .PAIN 1-3 OR TEMP Last administered on 01/03/19 11:17; Admin Dose 650 MG; Start 12/31/18 at 18:30 Acetaminophen/ Hydrocodone Bitart ([place] (5/325)) 1 tab Q6H PRN PO .MOD PAIN 4- 6 Last administered on 01/15/19 00:50; Admin Dose 1 TAB; Start 12/31/18 at 18:30 Docusate Sodium (Colace) 100 mg Q12H PRN PO .CONSTIPATION; Start 12/31/18 at 18:30 Magnesium Hydroxide (Milk Of Mag) 30 ml DAILY PRN PO .CONSTIPATION; Start 12/31/18 at 18:30 Albuterol/ Ipratropium (Duoneb) 3 ml Q4H RESP THERAPY PRN HHN SHORTNESS OF BREATH Last administered on 01/09/19 19:19; Admin Dose 3 ML; Start 12/31/18 at 18:30 Hydralazine HCl (Apresoline) 10 mg Q6H PRN IV ELEVATED BLOOD PRESSURE; Start 12/31/18 at 18:30 Nitroglycerin (Nitroglycerin (Sl Tab) 0.4 Mg) 1 tab Q5M PRN SL ANGINA; Start 12/31/18 at 18:30 Guaifenesin (Robitussin Liquid Cup) 200 mg Q4H PRN PO COUGH Last administered on 01/16/19 09:06; Admin Dose 200 MG; Start 01/01/19 at 11:30 Ibuprofen (Motrin) 600 mg Q6H PRN PO MILD PAIN LEVEL 1-3 Last administered on 01/15/19 05:34; Admin Dose 600 MG; Start 01/01/19 at 17:30 Phenol (Cepastat Lozenge) 1 lozenge Q1H PRN MT COUGH Last administered on 01/09/19 09:06; Admin Dose 1 LOZENGE; Start 01/02/19 at 12:30 Famotidine (Pepcid) 20 mg DAILY PO Last administered on 01/16/19 09:03; Admin Dose 20 MG; Start 01/03/19 at 09:00 Levofloxacin (Levaquin) 750 mg DAILY@06 PO Last administered on 01/16/19 05:45; Admin Dose 750 MG; Start 01/08/19 at 06:00 Morphine Sulfate (morphine) 6 mg Q4H PRN PO SEVERE PAIN LEVEL 7-10 Last administered on 01/16/19 09:07; Admin Dose 6 MG; Start 01/07/19 at 23:30 Ceftriaxone Sodium 50 ml @ 100 mls/hr Q24H IVPB Last administered on 01/16/19 12:47; Admin Dose 100 MLS/HR; Start 01/09/19 at 13:00 Levalbuterol (Xopenex Neb) 0.63 mg Q4H RESP THERAPY HHN Last administered on 01/16/19 04:33; Admin Dose 0.63 MG; Start 01/10/19 at 01:00 Voriconazole (Vfend) 200 mg BID PO Last administered on 01/16/19 09:03; Admin Dose 200 MG; Start 01/11/19 at 13:00 ALEX TRAN Jan 16, 2019 12:54
--- NOTE | 2019-01-16 15:33 | PN ---
Date/Time of Note Date/Time of Note DATE: 01/16/19 TIME: 15:25 Assessment/Plan VTE Prophylaxis Risk score (from Ns)>0 risk: 5 SCD applied (from Ns): Yes Pharmacological prophylaxis: NA/contraindicated Pharm contraindication: bleeding Lines/Catheters IV [facility]from [facility] Urinary Cath still in place: No Assessment/Plan Hospital Course S: Patient still having some mild hemoptysis. Tolerating diet. Seen by pulmonary infectious disease teams earlier today. No fevers. Referred [facility] placement [facility], apparently was not able to be accepted there, per case management. O: VS - see below PHYSICAL EXAMINATION: GENERAL: lying in bed, no acute distress HEENT: Pupils are equal, round, react to light. Extraocular muscles are int act. NECK: Supple. No thyromegaly. LUNGS: Distant breath sounds bilaterally. CARDIOVASCULAR: S1, S2 heard. No rubs or gallops. ABDOMEN: Soft, nontender, nondistended. Normal bowel sounds. No rebound or guarding. MUSCULOSKELETAL: No lower extremity edema bilaterally. NEUROLOGIC: No focal deficits. 2D ECHO (01/02/19) Conclusions: Normal left ventricular systolic function. Normal left ventricular cavity size. Mild concentric left ventricular hypertrophy. Ejection fraction is visually estimated at 55-60 %. Tissue Doppler/Mitral Doppler indices are consistent with impaired relaxation (Stage I diastolic dysfunction). Mild enlargement of right ventricle. Mild right ventricular hypokinesis. There is severe enlargement of right atrium. Mild mitral annular calcification. Trace mitral regurgitation. No significant aortic stenosis or insufficiency. Aortic cusps appear mildly calcified. s/p Tricuspid valve replacement. TV vmax 2.84cm. Max PG 32mmHg. Mean PG 19 mmHg. Estimated peak PA systolic pressure 45 mmHg. There is moderate tricuspid regurgitation. MADINA - January 08, 2019: FINDINGS: 1. Grossly normal left ventricular size and systolic function. 2. No definite findings of patent foramen ovale or other interatrial septal defect with color flow Doppler interrogation in interatrial septum only. 3. Normal-appearing aortic valve apparatus, no aortic regurgitation. 4. Normal-appearing mitral valve apparatus with trace to mild mitral regurg itation. 5. Tricuspid valve, status post repair with thickened leaflets and moderate to severe mitral regurgitation. No definite vegetations, but I cannot completely rule out given the TR and thickening of baseline valve. 6. The patient's permanent pacemaker leads within the RA with mild increase hyperechoic structure within them. I cannot completely rule out associated vegetations on these leads, although not typical. 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 CTA 01/02/2019 (*CORRECTED REPORT): IMPRESSION: 1. Bilateral acute pulmonary emboli. 2. A thin web in the mid right main pulmonary artery indicates probable chronic pulmonary embolism. 3. Patchy bilateral air space disease consistent with inflammatory or infectious process. 4. Bilateral cavitary lesions, mostly on the right side. These may indicate septic emboli, abscesses, other infection, or inflammatory process. 5. Diffuse mediastinal and bilateral hilar thickening which may indicate lymphadenopathy, likely reactive. 6. Very small bilateral pleural effusions. 7. Prior cardiac surgery and mild cardiomegaly. 8. Otherwise unremarkable study. Call report: A call report of the findings was made to Dr. Mcduffie on 01/15/2019 at 1245 hours. Of note, the scan was performed on 01/02/2019 but was only reported on 01/15/2019. The delayed report was due to the fact that the images were originally not available. The images may have been obtained, and recorded under a different and incorrect patient name and medical record. Dr. Mcduffie is aware of the issue regarding the delayed report. CT chest with IV contrast January 10, 2019: IMPRESSION: 1. Patchy bilateral pulmonary consolidation is noted, greatest in the left li ngula, concerning for multilobar pneumonia. Atypical infectious etiologies (tuberculosis, fungal infection) are not excluded. 2. Multiple thin-walled pulmonary cavities are seen bilaterally, new when compared to the prior CT, likely chronic sequela of prior infection/inflammation. 3. There is nonspecific prominence of mediastinal and hilar lymph nodes, possibly reactive. Prominent supraclavicular lymph nodes are noted as well, of uncertain etiology. 4. Mild bilateral pleural effusions. 5. Mild cardiomegaly. Coronary arterial and aortic atherosclerotic calcifications. CTA chest 01/15/19: IMPRESSION: 1. No significant interval change in multiple bilateral pulmonary emboli. No evidence of right heart strain. 2. No significant interval change in multiple pulmonary consolidations, ground- glass opacities, and cavitary lesions. Again, these may represent septic emboli, pulmonary infarction, multifocal pneumonia, or combinations of other inflammatory processes. 3. Mediastinal, bilateral hilar, and supraclavicular lymphadenopathy is unchanged and may be reactive. Recommend attention on follow-up. 4. Stable small bilateral pleural effusions. Assessment/Plan: 28-year-old man coming in with productive cough, possible hemoptysis for last 7 to 10 days prior to admission, with signs of leukocytosis and pneumonia with a prior history of IV drug abuse, endocarditis, pacemaker and pulmonary embolism and tricuspid valve repair. # Cough and hemoptysis + Hypoxia -slowly improving but symptoms still present. Again, the original CTA chest from January 02 does in fact show bilateral acute pulmonary emboli, along with cavitary lesions and possible septic emboli. Repeat CTA chest yesterday shows similar findings. Lower semi-Doppler study performed yesterday negative for DVT. -Continue broad spectrum antibiotics, low-dose IV fluids, Tylenol p.r.n. pain and fevers. -Per discussion with radiology and talent acquisition consultant teams, considerations for treatment of PE now likely will be either anticoagulation versus IVC filter - we will further discuss case with them -Pending crypto, cocci, aspergillus [id number] results of these tests -Follow-up recommendation from talent acquisition consultant team # Bacteremia- Blood cultures growing 2/2 bottles corynebacteria- MADINA indeterminate for vegetations on tricuspid valve. 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 -Monitor for withdrawal, counseled on cessation. # History of prior pacemaker-monitor for now, continue current cardiac medications, follow cardiology recommendations # History of peptic ulcer disease - H2 sharona. Otherwise, no present issues. Result Diagram: 01/15/190 01/15/19 0440 Exam/Review of Systems Exam Vitals Vital Signs Date Temp Pulse Resp B/P (MAP) Pulse Ox O2 O2 Flow FiO2 Time Delivery Rate 01/16/19 83 20 96 Nasal 3.0 14:31 Cannula 01/16/19 98.1 119/76 07:55 (90) 01/15/19 21 08:50 Intake and Output 01/15/19 01/15/19 01/16/19 1515:00 23:00 07:00 IntakeIntake Total 1280 ml 50 ml OutputOutput Total 600 ml 950 ml 1800 ml BalanceBalance 680 ml -900 ml -1800 ml Medications Medication Current Medications IV Flush (NS 3 ml) 3 ml PER PROTOCOL IV ; Start 12/31/18 at 18:30 Ondansetron HCl (Zofran Inj) 4 mg Q6H PRN IV NAUSEA/VOMITING Last administered on 01/15/19 20:18; Admin Dose 4 MG; Start 12/31/18 at 18:30 Acetaminophen (Tylenol Tab) 650 mg Q6H PRN PO .PAIN 1-3 OR TEMP Last administered on 01/03/19 11:17; Admin Dose 650 MG; Start 12/31/18 at 18:30 Acetaminophen/ Hydrocodone Bitart ([place] (5/325)) 1 tab Q6H PRN PO .MOD PAIN 4- 6 Last administered on 01/15/19 00:50; Admin Dose 1 TAB; Start 12/31/18 at 18:30 Docusate Sodium (Colace) 100 mg Q12H PRN PO .CONSTIPATION; Start 12/31/18 at 18:30 Magnesium Hydroxide (Milk Of Mag) 30 ml DAILY PRN PO .CONSTIPATION; Start 12/31/18 at 18:30 Albuterol/ Ipratropium (Duoneb) 3 ml Q4H RESP THERAPY PRN HHN SHORTNESS OF BREATH Last administered on 01/09/19 19:19; Admin Dose 3 ML; Start 12/31/18 at 18:30 Hydralazine HCl (Apresoline) 10 mg Q6H PRN IV ELEVATED BLOOD PRESSURE; Start 12/31/18 at 18:30 Nitroglycerin (Nitroglycerin (Sl Tab) 0.4 Mg) 1 tab Q5M PRN SL ANGINA; Start 12/31/18 at 18:30 Guaifenesin (Robitussin Liquid Cup) 200 mg Q4H PRN PO COUGH Last administered on 01/16/19 09:06; Admin Dose 200 MG; Start 01/01/19 at 11:30 Ibuprofen (Motrin) 600 mg Q6H PRN PO MILD PAIN LEVEL 1-3 Last administered on 01/15/19 05:34; Admin Dose 600 MG; Start 01/01/19 at 17:30 Phenol (Cepastat Lozenge) 1 lozenge Q1H PRN MT COUGH Last administered on 01/09/19 09:06; Admin Dose 1 LOZENGE; Start 01/02/19 at 12:30 Famotidine (Pepcid) 20 mg DAILY PO Last administered on 01/16/19 09:03; Admin Dose 20 MG; Start 01/03/19 at 09:00 Levofloxacin (Levaquin) 750 mg DAILY@06 PO Last administered on 01/16/19 05:45; Admin Dose 750 MG; Start 01/08/19 at 06:00 Morphine Sulfate (morphine) 6 mg Q4H PRN PO SEVERE PAIN LEVEL 7-10 Last administered on 01/16/19 09:07; Admin Dose 6 MG; Start 01/07/19 at 23:30 Ceftriaxone Sodium 50 ml @ 100 mls/hr Q24H IVPB Last administered on 01/16/19 12:47; Admin Dose 100 MLS/HR; Start 01/09/19 at 13:00 Levalbuterol (Xopenex Neb) 0.63 mg Q4H RESP THERAPY HHN Last administered on 01/16/19 14:31; Admin Dose 0.63 MG; Start 01/10/19 at 01:00 Voriconazole (Vfend) 200 mg BID PO Last administered on 01/16/19 09:03; Admin Dose 200 MG; Start 01/11/19 at 13:00 ROWAN OVALLE Jan 16, 2019 15:33
--- NOTE | 2019-01-16 15:57 | CONS ---
Assessment/Plan Assessment/Plan Hospital Course (Demo Recall) Patient is awake getting breathing treatments still having hemoptysis no fevers overnight. Blood cultures remain negative. Microbiology: Blood culture on admission grew Corynebacterium species. Repeat blood cultures on January 01 and January 11 negative HIV serology negative. Antimicrobials: Levaquin, Rocephin, Vfend. Assessment: 1. S/p sepsis present on admission, resolving 2. Community-acquired pneumonia with repeat CT notes multiple thin-walled cavities dense infiltrates and possible mycetoma. 3. Hemoptysis 4. History of endocarditis==> MADINA indeterminate for vegetations on tricuspid valve 5. IV drug abuse 6. Coronary artery disease with a history of tricuspid valve replacement and permanent pacemaker placement 6. Bacteremia cw contaminant Plan: Remains stable, anticipate dc on Rocephin and Vfend for 4 more weeks, f/u cocci serology, pending placement Consultation Date/Type/Reason Admit Date/Time Dec 31, 2018 at 18:14 Initial Consult Date Type of Consult id Requesting Provider: ALEX CLARKE MD Date/Time of Note DATE: 01/16/19 TIME: 15:56 Exam/Review of Systems Exam Vitals Vital Signs Date Temp Pulse Resp B/P (MAP) Pulse Ox O2 O2 Flow FiO2 Time Delivery Rate 01/16/19 83 20 96 Nasal 3.0 14:31 Cannula 01/16/19 98.1 119/76 07:55 (90) 01/15/19 21 08:50 Intake and Output 01/15/19 01/15/19 01/16/19 1515:00 23:00 07:00 IntakeIntake Total 1280 ml 50 ml OutputOutput Total 600 ml 950 ml 1800 ml BalanceBalance 680 ml -900 ml -1800 ml Results Result Diagram: 01/15/19 0440 01/15/19 0440 Medications Medication Current Medications IV Flush (NS 3 ml) 3 ml PER PROTOCOL IV ; Start 12/31/18 at 18:30 Ondansetron HCl (Zofran Inj) 4 mg Q6H PRN IV NAUSEA/VOMITING Last administered on 01/15/19at 20:18; Admin Dose 4 MG; Start 12/31/18 at 18:30 Acetaminophen (Tylenol Tab) 650 mg Q6H PRN PO .PAIN 1-3 OR TEMP Last administered on 01/03/19at 11:17; Admin Dose 650 MG; Start 12/31/18 at 18:30 Acetaminophen/ Hydrocodone Bitart ([place] (5/325)) 1 tab Q6H PRN PO .MOD PAIN 4- 6 Last administered on 01/15/19 00:50; Admin Dose 1 TAB; Start 12/31/18 at 18:30 Docusate Sodium (Colace) 100 mg Q12H PRN PO .CONSTIPATION; Start 12/31/18 at 18:30 Magnesium Hydroxide (Milk Of Mag) 30 ml DAILY PRN PO .CONSTIPATION; Start 12/31/18 at 18:30 Albuterol/ Ipratropium (Duoneb) 3 ml Q4H RESP THERAPY PRN HHN SHORTNESS OF BREATH Last administered on 01/09/19 19:19; Admin Dose 3 ML; Start 12/31/18 at 18:30 Hydralazine HCl (Apresoline) 10 mg Q6H PRN IV ELEVATED BLOOD PRESSURE; Start 12/31/18 at 18:30 Nitroglycerin (Nitroglycerin (Sl Tab) 0.4 Mg) 1 tab Q5M PRN SL ANGINA; Start 12/31/18 at 18:30 Guaifenesin (Robitussin Liquid Cup) 200 mg Q4H PRN PO COUGH Last administered on 01/16/19 09:06; Admin Dose 200 MG; Start 01/01/19 at 11:30 Ibuprofen (Motrin) 600 mg Q6H PRN PO MILD PAIN LEVEL 1-3 Last administered on 01/15/19 05:34; Admin Dose 600 MG; Start 01/01/19 at 17:30 Phenol (Cepastat Lozenge) 1 lozenge Q1H PRN MT COUGH Last administered on 09:06; Admin Dose 1 LOZENGE; Start 01/02/19 at 12:30 Famotidine (Pepcid) 20 mg DAILY PO Last administered on 01/16/19 09:03; Admin Dose 20 MG; Start 01/03/19 at 09:00 Levofloxacin (Levaquin) 750 mg DAILY@06 PO Last administered on 01/16/19 05:45; Admin Dose 750 MG; Start 01/08/19 at 06:00 Morphine Sulfate (morphine) 6 mg Q4H PRN PO SEVERE PAIN LEVEL 7-10 Last administered on 01/16/19 09:07; Admin Dose 6 MG; Start 01/07/19 at 23:30 Ceftriaxone Sodium 50 ml @ 100 mls/hr Q24H IVPB Last administered on 01/16/19 12:47; Admin Dose 100 MLS/HR; Start 01/09/19 at 13:00 Levalbuterol (Xopenex Neb) 0.63 mg Q4H RESP THERAPY HHN Last administered on 01/16/19 14:31; Admin Dose 0.63 MG; Start 01/10/19 at 01:00 Voriconazole (Vfend) 200 mg BID PO Last administered on 01/16/19 09:03; Admin Dose 200 MG; Start 01/11/19 at 13:00 Phenol (Cepastat Lozenge) 1 lozenge Q1H PRN MT COUGH; Start 01/16/19 at 16:30 HAYLEE ENGLE NP Jan 16, 2019 15:57
[2019-01-16] MEDS ORDERED: CEPASTAT LOZENGE MT PRN (16:30)
[2019-01-16] MEDS: CEPASTAT LOZENGE MT PRN (18:18)
[2019-01-16 19:56] VITALS: BP 139/81; PULSE 95; RESP 18
[2019-01-17] MEDS: LEVALBUTEROL (NEB) 0.63 MG/3 ML AMP HHN SCH ×6 (01:05→20:56)
[2019-01-17 02:31] VITALS: BP 130/83; PULSE 105; RESP 18
[2019-01-17] MEDS: morphine LIQ (10 MG/5 ML) CUP PO PRN ×4 (04:53→22:17)
[2019-01-17] MEDS: GUAIFENESIN 20 MG/ML 5ML CUP PO PRN ×3 (04:53→20:04)
[2019-01-17] MEDS: LEVOFLOXACIN 750 MG TABLET PO SCH (05:09)
[2019-01-17 07:34] VITALS: BP 132/84; PULSE 95; RESP 18
[2019-01-17] MEDS: VORICONAZOLE 200 MG TAB PO SCH ×2 (08:55→20:04)
[2019-01-17] MEDS: FAMOTIDINE 20 MG TAB PO SCH (08:55)
--- NOTE | 2019-01-17 12:31 | CONS ---
Consult Date/Type/Reason Admit Date/Time Dec 31, 2018 at 18:14 Initial Consult Date Type of Consult Pulmonary Requesting Provider: ALEX CLARKE MD Date/Time of Note DATE: 01/17/19 TIME: 12:30 Subjective Patient comfortable this morning no respiratory distress Objective Vital Signs Date Temp Pulse Resp B/P (MAP) Pulse Ox O2 O2 Flow FiO2 Time Delivery Rate 01/17/19 3.0 12:07 01/17/19 82 20 94 Nasal 12:06 Cannula 01/17/19 98.2 132/84 07:34 (100) 01/15/19 21 08:50 Intake and Output 01/16/19 01/16/19 01/17/19 1515:00 23:00 07:00 IntakeIntake Total 1440 ml 1490 ml OutputOutput Total 2150 ml 1550 ml BalanceBalance -710 ml -60 ml Exam GENERAL: Well-nourished well-developed gentleman no acute distress VITAL SIGNS: per chart NECK: Supple. No JVD or lymphadenopathy. CARDIAC EXAM: S1, S2. No added sounds or murmurs. CHEST: clear bilaterally, No added sounds, rales or wheezes ABDOMEN: Soft, nontender. No guarding or rebound. EXTREMITIES: No cyanosis, clubbing or edema. NEUROLOGIC: Generalized weakness. No focal deficits. Vent Setting Fraction of Inspired Oxygen pe: 21 Results/Medications Result Diagram: 01/15/19 0440 01/15/19 0440 Results 24 hrs Laboratory Tests Test 01/17/19 09:07 Lab Scanned Report REFERENCE LAB Medications Current Medications IV Flush (NS 3 ml) 3 ml PER PROTOCOL IV ; Start 12/31/18 at 18:30 Ondansetron HCl (Zofran Inj) 4 mg Q6H PRN IV NAUSEA/VOMITING Last administered on 01/15/19at 20:18; Admin Dose 4 MG; Start 12/31/18 at 18:30 Acetaminophen (Tylenol Tab) 650 mg Q6H PRN PO .PAIN 1-3 OR TEMP Last administered on 01/03/19at 11:17; Admin Dose 650 MG; Start 12/31/18 at 18:30 Acetaminophen/ Hydrocodone Bitart ([place] (5/325)) 1 tab Q6H PRN PO .MOD PAIN 4- 6 Last administered on 01/15/19at 00:50; Admin Dose 1 TAB; Start 12/31/18 at 18:30 Docusate Sodium (Colace) 100 mg Q12H PRN PO .CONSTIPATION; Start 12/31/18 at 18:30 Magnesium Hydroxide (Milk Of Mag) 30 ml DAILY PRN PO .CONSTIPATION; Start 12/31/18 at 18:30 Albuterol/ Ipratropium (Duoneb) 3 ml Q4H RESP THERAPY PRN HHN SHORTNESS OF BREATH Last administered on 01/09/19 19:19; Admin Dose 3 ML; Start 12/31/18 at 18:30 Hydralazine HCl (Apresoline) 10 mg Q6H PRN IV ELEVATED BLOOD PRESSURE; Start 12/31/18 at 18:30 Nitroglycerin (Nitroglycerin (Sl Tab) 0.4 Mg) 1 tab Q5M PRN SL ANGINA; Start 12/31/18 at 18:30 Guaifenesin (Robitussin Liquid Cup) 200 mg Q4H PRN PO COUGH Last administered on 01/17/19 08:52; Admin Dose 200 MG; Start 01/01/19 at 11:30 Ibuprofen (Motrin) 600 mg Q6H PRN PO MILD PAIN LEVEL 1-3 Last administered on 01/15/19 05:34; Admin Dose 600 MG; Start 01/01/19 at 17:30 Phenol (Cepastat Lozenge) 1 lozenge Q1H PRN MT COUGH Last administered on 01/16/19 18:18; Admin Dose 1 LOZENGE; Start 01/02/19 at 12:30 Famotidine (Pepcid) 20 mg DAILY PO Last administered on 01/17/19 08:55; Admin Dose 20 MG; Start 01/03/19 at 09:00 Levofloxacin (Levaquin) 750 mg DAILY@06 PO Last administered on 01/17/19 05:09; Admin Dose 750 MG; Start 01/08/19 at 06:00 Morphine Sulfate (morphine) 6 mg Q4H PRN PO SEVERE PAIN LEVEL 7-10 Last administered on 01/17/19 08:54; Admin Dose 6 MG; Start 01/07/19 at 23:30 Ceftriaxone Sodium 50 ml @ 100 mls/hr Q24H IVPB Last administered on 01/16/19 12:47; Admin Dose 100 MLS/HR; Start 01/09/19 at 13:00 Levalbuterol (Xopenex Neb) 0.63 mg Q4H RESP THERAPY HHN Last administered on 01/17/19at 12:04; Admin Dose 0.63 MG; Start 01/10/19 at 01:00 Voriconazole (Vfend) 200 mg BID PO Last administered on 01/17/19at 08:55; Admin Dose 200 MG; Start 01/11/19 at 13:00 Assessment/Plan Hospital Course (Demo Recall) IMPRESSION 1. Recurrent hemoptysis multiple thin-walled cavities suggestive of prior septic emboli and evidence of possible fungal infiltration also. Recent CT angiogram shows acute pulmonary embolus 2. Intravenous drug abuse. 3. Possible infective endocarditis with positive blood cultures. Recommendations 1. Continues. Continue fungal therapy 2. IVC filter placement given anticoagulation relative contraindication secondary to significant recent hemoptysis CAROLINA BEATTY MD, [facility] Jan 17, 2019 12:31
[2019-01-17] MEDS: CEFTRIAXONE 1 GM/50 ML (PMX) 50 ML IVPB SCH (13:21)
[2019-01-17] MEDS: CEPASTAT LOZENGE MT PRN ×2 (13:24→22:16)
[2019-01-17 14:15] VITALS: BP 133/79; PULSE 98; RESP 18
--- NOTE | 2019-01-17 14:19 | CONS ---
Assessment/Plan Assessment/Plan Hospital Course (Demo Recall) No acute events, looks comfortable, no fevers Microbiology: Blood culture on admission grew Corynebacterium species. Repeat blood cultures on January 01 and January 11 negative HIV serology negative. Crypto neg Antimicrobials: Levaquin, Rocephin, Vfend. Assessment: 1. S/p sepsis present on admission, resolving 2. Community-acquired pneumonia with repeat CT notes multiple thin-walled cavities dense infiltrates and possible mycetoma. 3. Hemoptysis/PE 4. History of endocarditis==> MADINA indeterminate for vegetations on tricuspid valve 5. IV drug abuse 6. Coronary artery disease with a history of tricuspid valve replacement and permanent pacemaker placement 6. Bacteremia Plan: Remains stable, continue present care, poss IVC filter, anticipate dc on Rocephin and Vfend for 4 more weeks, f/u cocci and Aspergillus serology, if negative no need for Vfend Consultation Date/Type/Reason Admit Date/Time Dec 31, 2018 at 18:14 Initial Consult Date Type of Consult id Requesting Provider: ALEX CLARKE MD Date/Time of Note DATE: 01/17/19 TIME: 14:15 Exam/Review of Systems Exam Vitals Vital Signs Date Temp Pulse Resp B/P (MAP) Pulse Ox O2 O2 Flow FiO2 Time Delivery Rate 01/17/19 3.0 12:07 01/17/19 82 20 94 Nasal 12:06 Cannula 01/17/19 98.2 132/84 07:34 (100) 01/15/19 21 08:50 Intake and Output 01/16/19 01/16/19 01/17/19 1414:59 22:59 06:59 IntakeIntake Total 1440 ml 1490 ml OutputOutput Total 2150 ml 1550 ml BalanceBalance -710 ml -60 ml Results Result Diagram: 01/15/19 0440 01/15/19 0440 Results 24hrs Laboratory Tests Test 01/17/19 09:07 Lab Scanned Report REFERENCE LAB Medications Medication Current Medications IV Flush (NS 3 ml) 3 ml PER PROTOCOL IV ; Start 12/31/18 at 18:30 Ondansetron HCl (Zofran Inj) 4 mg Q6H PRN IV NAUSEA/VOMITING Last administered on 01/15/19at 20:18; Admin Dose 4 MG; Start 12/31/18 at 18:30 Acetaminophen (Tylenol Tab) 650 mg Q6H PRN PO .PAIN 1-3 OR TEMP Last administered on 01/03/19 11:17; Admin Dose 650 MG; Start 12/31/18 at 18:30 Acetaminophen/ Hydrocodone Bitart ([place] (5/325)) 1 tab Q6H PRN PO .MOD PAIN 4- 6 Last administered on 01/15/19 00:50; Admin Dose 1 TAB; Start 12/31/18 at 18:30 Docusate Sodium (Colace) 100 mg Q12H PRN PO .CONSTIPATION; Start 12/31/18 at 18:30 Magnesium Hydroxide (Milk Of Mag) 30 ml DAILY PRN PO .CONSTIPATION; Start 12/31/18 at 18:30 Albuterol/ Ipratropium (Duoneb) 3 ml Q4H RESP THERAPY PRN HHN SHORTNESS OF BREATH Last administered on 01/09/19 19:19; Admin Dose 3 ML; Start 12/31/18 at 18:30 Hydralazine HCl (Apresoline) 10 mg Q6H PRN IV ELEVATED BLOOD PRESSURE; Start 12/31/18 at 18:30 Nitroglycerin (Nitroglycerin (Sl Tab) 0.4 Mg) 1 tab Q5M PRN SL ANGINA; Start 12/31/18 at 18:30 Guaifenesin (Robitussin Liquid Cup) 200 mg Q4H PRN PO COUGH Last administered on 01/17/19 08:52; Admin Dose 200 MG; Start 01/01/19 at 11:30 Ibuprofen (Motrin) 600 mg Q6H PRN PO MILD PAIN LEVEL 1-3 Last administered on 01/15/19 05:34; Admin Dose 600 MG; Start 01/01/19 at 17:30 Phenol (Cepastat Lozenge) 1 lozenge Q1H PRN MT COUGH Last administered on 01/17/19 13:24; Admin Dose 1 LOZENGE; Start 01/02/19 at 12:30 Famotidine (Pepcid) 20 mg DAILY PO Last administered on 01/17/19 08:55; Admin Dose 20 MG; Start 01/03/19 at 09:00 Levofloxacin (Levaquin) 750 mg DAILY@06 PO Last administered on 01/17/19 05:09; Admin Dose 750 MG; Start 01/08/19 at 06:00 Morphine Sulfate (morphine) 6 mg Q4H PRN PO SEVERE PAIN LEVEL 7-10 Last administered on 01/17/19 08:54; Admin Dose 6 MG; Start 01/07/19 at 23:30 Ceftriaxone Sodium 50 ml @ 100 mls/hr Q24H IVPB Last administered on 01/17/19 13:21; Admin Dose 100 MLS/HR; Start 01/09/19 at 13:00 Levalbuterol (Xopenex Neb) 0.63 mg Q4H RESP THERAPY HHN Last administered on 01/17/19 12:04; Admin Dose 0.63 MG; Start 01/10/19 at 01:00 Voriconazole (Vfend) 200 mg BID PO Last administered on 01/17/19at 08:55; Admin Dose 200 MG; Start 01/11/19 at 13:00 HAYLEE ENGLE NP Jan 17, 2019 14:19
--- NOTE | 2019-01-17 14:37 | PN ---
Date/Time of Note Date/Time of Note DATE: 01/17/19 TIME: 14:35 Assessment/Plan VTE Prophylaxis Risk score (from [facility] [place] risk: 4 SCD applied (from [facility] [place] Yes Pharmacological prophylaxis: NA/contraindicated Pharm contraindication: bleeding Lines/Catheters IV Catheter Type (from [facility] Saline Lock Urinary Cath still in place: No Assessment/Plan Hospital Course S: Patient still having some mild hemoptysis. Seen by pulmonary infectious disease teams earlier. No fevers. O: VS - see below PHYSICAL EXAMINATION: GENERAL: lying in bed, no acute distress HEENT: Pupils are equal, round, react to light. Extraocular muscles are intact. NECK: Supple. No thyromegaly. LUNGS: Distant breath sounds bilaterally. CARDIOVASCULAR: S1, S2 heard. No rubs or gallops. ABDOMEN: Soft, nontender, nondistended. Normal bowel sounds. No rebound or guarding. MUSCULOSKELETAL: No lower extremity edema bilaterally. NEUROLOGIC: No focal deficits. 2D ECHO (01/02/19) Conclusions: Normal left ventricular systolic function. Normal left ventricular cavity size. Mild concentric left ventricular hypertrophy. Ejection fraction is visually estimated at 55-60 %. Tissue Doppler/Mitral Doppler indices are consistent with impaired relaxation (Stage I diastolic dysfunction). Mild enlargement of right ventricle. Mild right ventricular hypokinesis. There is severe enlargement of right atrium. Mild mitral annular calcification. Trace mitral regurgitation. No significant aortic stenosis or insufficiency. Aortic cusps appear mildly calcified. s/p Tricuspid valve replacement. TV vmax 2.84cm. Max PG 32mmHg. Mean PG 19 mmHg. Estimated peak PA systolic pressure 45 mmHg. There is moderate tricuspid regurgitation. MADINA - January 08, 2019: FINDINGS: 1. Grossly normal left ventricular size and systolic function. 2. No definite findings of patent foramen ovale or other interatrial septal defect with color flow Doppler interrogation in interatrial septum only. 3. Normal-appearing aortic valve apparatus, no aortic regurgitation. 4. Normal-appearing mitral valve apparatus with trace to mild mitral regurgitation. 5. Tricuspid valve, status post repair with thickened leaflets and moderate to severe mitral regurgitation. No definite vegetations, but I cannot completely rule out given the TR and thickening of baseline valve. 6. The patient's permanent pacemaker leads within the RA with mild increase hyperechoic structure within them. I cannot completely rule out associated vegetations on these leads, although not typical. 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 CTA 01/02/2019 (*CORRECTED REPORT): IMPRESSION: 1. Bilateral acute pulmonary emboli. 2. A thin web in the mid right main pulmonary artery indicates probable chronic pulmonary embolism. 3. Patchy bilateral air space disease consistent with inflammatory or infectious process. 4. Bilateral cavitary lesions, mostly on the right side. These may indicate septic emboli, abscesses, other infection, or inflammatory process. 5. Diffuse mediastinal and bilateral hilar thickening which may indicate lymphadenopathy, likely reactive. 6. Very small bilateral pleural effusions. 7. Prior cardiac surgery and mild cardiomegaly. 8. Otherwise unremarkable study. Call report: A call report of the findings was made to Dr. Mcduffie on 01/15/2019 at 1245 hours. Of note, the scan was performed on 01/02/2019 but was only reported on 01/15/2019. The delayed report was due to the fact that the images were originally not available. The images may have been obtained, and recorded under a different and incorrect patient name and medical record. Dr. Mcduffie is aware of the issue regarding the delayed report. CT chest with IV contrast January 10, 2019: IMPRESSION: 1. Patchy bilateral pulmonary consolidation is noted, greatest in the left lingula, concerning for multilobar pneumonia. Atypical infectious etiologies (tuberculosis, fungal infection) are not excluded. 2. Multiple thin-walled pulmonary cavities are seen bilaterally, new when compared to the prior CT, likely chronic sequela of prior infection/inflammation. 3. There is nonspecific prominence of mediastinal and hilar lymph nodes, possibly reactive. Prominent supraclavicular lymph nodes are noted as well, of uncertain etiology. 4. Mild bilateral pleural effusions. 5. Mild cardiomegaly. Coronary arterial and aortic atherosclerotic calcifications. CTA chest 01/15/19: IMPRESSION: 1. No significant interval change in multiple bilateral pulmonary emboli. No evidence of right heart strain. 2. No significant interval change in multiple pulmonary consolidations, ground- glass opacities, and cavitary lesions. Again, these may represent septic emboli, pulmonary infarction, multifocal pneumonia, or combinations of other inflammatory processes. 3. Mediastinal, bilateral hilar, and supraclavicular lymphadenopathy is unchanged and may be reactive. Recommend attention on follow-up. 4. Stable small bilateral pleural effusions. Assessment/Plan: 28-year-old man coming in with productive cough, possible hemoptysis for last 7 to 10 days prior to admission, with signs of leukocytosis and pneumonia with a prior history of IV drug abuse, endocarditis, pacemaker and pulmonary embolism and tricuspid valve repair. # Cough and hemoptysis + Hypoxia -slowly improving but symptoms still present. Again, the original CTA chest from January 02 does in fact show bilateral acute pulmonary emboli, along with cavitary lesions and possible septic emboli. Repeat CTA chest yesterday shows similar findings. Lower semi-Doppler study performed yesterday negative for DVT. -Continue broad spectrum antibiotics, low-dose IV fluids, Tylenol p.r.n. pain and fevers. -Per discussion with radiology and career consultant teams, considerations for treatment of PE now likely will IVC filter - we will place order for this today -Pending crypto, cocci, aspergillus [id number] results of these tests -Follow-up recommendation from career consultant team # Bacteremia- Blood cultures growing 2/2 bottles corynebacteria- MADINA indeterminate for vegetations on tricuspid valve. 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 -Monitor for withdrawal, counseled on cessation. # History of prior pacemaker-monitor for now, continue current cardiac medications, follow cardiology recommendations # History of peptic ulcer disease - H2 sharona. Otherwise, no present issues. Result Diagram: 01/15/1943901/15/19439 Results 24hrs Laboratory Tests Test 01/17/19 09:07 Lab Scanned Report REFERENCE LAB Exam/Review of Systems Exam Vitals Vital Signs Date Temp Pulse Resp B/P (MAP) Pulse Ox O2 O2 Flow FiO2 Time Delivery Rate 01/17/19 98.3 98 18 133/79 92 14:15 (97) 01/17/19 3.0 12:07 01/17/19 Nasal 12:06 Cannula 01/15/19 21 08:50 Intake and Output 01/16/19 01/16/19 01/17/19 1515:00 23:00 07:00 IntakeIntake Total 1440 ml 1490 ml OutputOutput Total 2150 ml 1550 ml BalanceBalance -710 ml -60 ml Results Results 24hrs Laboratory Tests Test 01/17/19 09:07 Lab Scanned Report REFERENCE LAB Medications Medication Current Medications IV Flush (NS 3 ml) 3 ml PER PROTOCOL IV ; Start 12/31/18 at 18:30 Ondansetron HCl (Zofran Inj) 4 mg Q6H PRN IV NAUSEA/VOMITING Last administered on 01/15/19 20:18; Admin Dose 4 MG; Start 12/31/18 at 18:30 Acetaminophen (Tylenol Tab) 650 mg Q6H PRN PO .PAIN 1-3 OR TEMP Last administered on 01/03/19 11:17; Admin Dose 650 MG; Start 12/31/18 at 18:30 Acetaminophen/ Hydrocodone Bitart ([place] (5/325)) 1 tab Q6H PRN PO .MOD PAIN 4- 6 Last administered on 01/15/19 00:50; Admin Dose 1 TAB; Start 12/31/18 at 18:30 Docusate Sodium (Colace) 100 mg Q12H PRN PO .CONSTIPATION; Start 12/31/18 at 18:30 Magnesium Hydroxide (Milk Of Mag) 30 ml DAILY PRN PO .CONSTIPATION; Start 12/31/18 at 18:30 Albuterol/ Ipratropium (Duoneb) 3 ml Q4H RESP THERAPY PRN HHN SHORTNESS OF BREATH Last administered on 01/09/19 19:19; Admin Dose 3 ML; Start 12/31/18 at 18:30 Hydralazine HCl (Apresoline) 10 mg Q6H PRN IV ELEVATED BLOOD PRESSURE; Start 12/31/18 at 18:30 Nitroglycerin (Nitroglycerin (Sl Tab) 0.4 Mg) 1 tab Q5M PRN SL ANGINA; Start 12/31/18 at 18:30 Guaifenesin (Robitussin Liquid Cup) 200 mg Q4H PRN PO COUGH Last administered on 01/17/19 08:52; Admin Dose 200 MG; Start 01/01/19 at 11:30 Ibuprofen (Motrin) 600 mg Q6H PRN PO MILD PAIN LEVEL 1-3 Last administered on 01/15/19 05:34; Admin Dose 600 MG; Start 01/01/19 at 17:30 Phenol (Cepastat Lozenge) 1 lozenge Q1H PRN MT COUGH Last administered on 01/17/19 13:24; Admin Dose 1 LOZENGE; Start 01/02/19 at 12:30 Famotidine (Pepcid) 20 mg DAILY PO Last administered on 01/17/19 08:55; Admin Dose 20 MG; Start 01/03/19 at 09:00 Levofloxacin (Levaquin) 750 mg DAILY@06 PO Last administered on 01/17/19 05:09; Admin Dose 750 MG; Start 01/08/19 at 06:00 Morphine Sulfate (morphine) 6 mg Q4H PRN PO SEVERE PAIN LEVEL 7-10 Last administered on 01/17/19 08:54; Admin Dose 6 MG; Start 01/07/19 at 23:30 Ceftriaxone Sodium 50 ml @ 100 mls/hr Q24H IVPB Last administered on 01/17/19 13:21; Admin Dose 100 MLS/HR; Start 01/09/19 at 13:00 Levalbuterol (Xopenex Neb) 0.63 mg Q4H RESP THERAPY HHN Last administered on 01/17/19 12:04; Admin Dose 0.63 MG; Start 01/10/19 at 01:00 Voriconazole (Vfend) 200 mg BID PO Last administered on 01/17/19 08:55; Admin Dose 200 MG; Start 01/11/19 at 13:00 ROWAN OVALLE Jan 17, 2019 14:37
--- NOTE | 2019-01-17 16:50 | CONS ---
Assessment/Plan Assessment/Plan Hospital Course (Demo Recall) IMPRESSION: 1. Bacteremia, assess for intracardiac source of infection, rule out endocarditis.- s/p MADIAN 01/08 with chronic prior changes of TVR and nonspecific findings associated with pacer leads. No definite findings of vegetations. bLD CX'S 01/01 remain negative to date 2. History of permanent pacemaker. 3. History of tricuspid valve repair. 4. History of IV drug abuse with ongoing drug usage and toxicology positive for amphetamines and cannabinoids. 5. History of peptic ulcer disease. 6. Cough and hemoptysis.- s/p chest CT with cavitary lesions Recc: -tele -would f/u cx data as MADINA without definite findings of ongoing vegetations but with chronic changes -Contineu abx's and voriconazole after chest CT findings and follow-up cx data -Pulmonary following and ID -To be d/c'd on 4 weeks of voriconazole -? initiation of anticoagulation for PE versus IVC filter placement Consultation Date/Type/Reason Admit Date/Time Dec 31, 2018 at 18:14 Initial Consult Date 01/08/19 Type of Consult Cardiology Reason for Consultation bacteremia Requesting Provider: ALEX CLARKE MD Date/Time of Note DATE: 01/17/19 TIME: 16:48 Exam/Review of Systems Vital Signs Vitals Vital Signs Date Temp Pulse Resp B/P (MAP) Pulse Ox O2 O2 Flow FiO2 Time Delivery Rate 01/17/19 98.3 98 18 133/79 92 14:15 (97) 01/17/19 3.0 12:07 01/17/19 Nasal 12:06 Cannula 01/15/19 21 08:50 Intake and Output 01/16/19 01/16/19 01/17/19 1414:59 22:59 06:59 IntakeIntake Total 1440 ml 1490 ml OutputOutput Total 2150 ml 1550 ml BalanceBalance -710 ml -60 ml Exam Exam Review of Systems: CONSTITUTIONAL: No fevers, chills. PULMONARY: No sob CARDIOVASCULAR: No chest pain/palpitations GASTROINTESTINAL: No nausea/vomiting. GENITOURINARY: No hematuria/dysuria. MUSCULOSKELETAL: No myagias/arthalgias. PSYCHIATRIC: The patient denies depression. NEUROLOGIC: No weakness Constitutional: alert Psych: no complaints Head: normocephalic ENMT: mucosa pink and moist Neck: supple, jvd (9 cm water) Respiratory: diminished breath sounds Cardiovascular: regular rate and rhythm Gastrointestinal: soft, non-tender Musculoskeletal: muscle tone (normal) Extremities: edema Neurological: other (No focal deficits) Labs Result Diagram: 01/15/190 01/15/19 0440 Results 24hrs Laboratory Tests Test 01/17/19 09:07 Lab Scanned Report REFERENCE LAB Medications Medications Current Medications IV Flush (NS 3 ml) 3 ml PER PROTOCOL IV ; Start 12/31/18 at 18:30 Ondansetron HCl (Zofran Inj) 4 mg Q6H PRN IV NAUSEA/VOMITING Last administered on 01/15/19 20:18; Admin Dose 4 MG; Start 12/31/18 at 18:30 Acetaminophen (Tylenol Tab) 650 mg Q6H PRN PO .PAIN 1-3 OR TEMP Last administered on 01/03/19 11:17; Admin Dose 650 MG; Start 12/31/18 at 18:30 Acetaminophen/ Hydrocodone Bitart ([place] (5/325)) 1 tab Q6H PRN PO .MOD PAIN 4- 6 Last administered on 01/15/19at 00:50; Admin Dose 1 TAB; Start 12/31/18 at 18:30 Docusate Sodium (Colace) 100 mg Q12H PRN PO .CONSTIPATION; Start 12/31/18 at 18:30 Magnesium Hydroxide (Milk Of Mag) 30 ml DAILY PRN PO .CONSTIPATION; Start 12/31/18 at 18:30 Albuterol/ Ipratropium (Duoneb) 3 ml Q4H RESP THERAPY PRN HHN SHORTNESS OF BREATH Last administered on 01/09/19 19:19; Admin Dose 3 ML; Start 12/31/18 at 18:30 Hydralazine HCl (Apresoline) 10 mg Q6H PRN IV ELEVATED BLOOD PRESSURE; Start 12/31/18 at 18:30 Nitroglycerin (Nitroglycerin (Sl Tab) 0.4 Mg) 1 tab Q5M PRN SL ANGINA; Start 12/31/18 at 18:30 Guaifenesin (Robitussin Liquid Cup) 200 mg Q4H PRN PO COUGH Last administered on 01/17/19at 08:52; Admin Dose 200 MG; Start 01/01/19 at 11:30 Ibuprofen (Motrin) 600 mg Q6H PRN PO MILD PAIN LEVEL 1-3 Last administered on 01/15/19 05:34; Admin Dose 600 MG; Start 01/01/19 at 17:30 Phenol (Cepastat Lozenge) 1 lozenge Q1H PRN MT COUGH Last administered on 01/17/19 13:24; Admin Dose 1 LOZENGE; Start 01/02/19 at 12:30 Famotidine (Pepcid) 20 mg DAILY PO Last administered on 01/17/19 08:55; Admin Dose 20 MG; Start 01/03/19 at 09:00 Levofloxacin (Levaquin) 750 mg DAILY@06 PO Last administered on 01/17/19 05:09; Admin Dose 750 MG; Start 01/08/19 at 06:00 Morphine Sulfate (morphine) 6 mg Q4H PRN PO SEVERE PAIN LEVEL 7-10 Last administered on 01/17/19 08:54; Admin Dose 6 MG; Start 01/07/19 at 23:30 Ceftriaxone Sodium 50 ml @ 100 mls/hr Q24H IVPB Last administered on 01/17/19 13:21; Admin Dose 100 MLS/HR; Start 01/09/19 at 13:00 Levalbuterol (Xopenex Neb) 0.63 mg Q4H RESP THERAPY HHN Last administered on 01/17/19 12:04; Admin Dose 0.63 MG; Start 01/10/19 at 01:00 Voriconazole (Vfend) 200 mg BID PO Last administered on 01/17/19 08:55; Admin Dose 200 MG; Start 01/11/19 at 13:00 ALEX TRAN 15, 2019 16:50
--- NOTE | 2019-01-17 17:44 | HPN ---
Date/Time of Note Date/Time of Note DATE: 01/17/19 TIME: 17:43 Interval H&P Admission Note Pt. seen H&P reviewed: Systems changes noted below Pulmonary emboli seen on CT Pulmonary angiogram. RICCARDO LANDRY MD Jan 17, 2019 17:44
[2019-01-17 19:45] VITALS: BP 126/85; PULSE 90; RESP 18
[2019-01-17] MEDS: DOCUSATE SODIUM 100 MG CAP PO PRN (20:04)
[2019-01-17] MEDS: HYDROCODONE/APAP (5/325) TAB PO PRN (20:05)
--- NOTE | 2019-01-17 20:48 | RADRPT ---
PROCEDURE: INFERIOR VENA CAVA FILTER PLACEMENT AND INFERIOR VENACAVOGRAM CLINICAL INDICATION: Pulmonary embolism. Hemoptysis. TECHNIQUE: The procedure, risks, benefits, complications and alternatives were explained to the patient. Risks i ncluding bleeding and infection were explained. In addition, risks regarding the inferior vena cava f ilter including filter migration, inferior vena cava the perforation, and caval thrombosis were expla ined. The patient understood and was willing to proceed. Consent was obtained. A procedural pause was performed. The patient's name, date of , and procedure to be performed were verified. The right common femoral vein was interrogated with ultrasound. It demonstrates normal compressibilit y without evidence for venous thrombosis. The right inguinal region was prepped and draped. One perce nt lidocaine was used as local anesthesia. Using ultrasound guidance, a 21 gauge single wall puncture needle was inserted into the right common femoral vein without difficulty. A 0.018 inch guidewire wa s then advanced through the needle into the inferior vena cava with fluoroscopic guidance. A 5 Khmer sheath was then exchanged for the needle. The original guidewire was removed and a 0.035 inch wire w as then advanced into the inferior vena cava with fluoroscopic guidance. The 6 Khmer sheath and dila tor for the inferior vena cava filter was inserted over the guidewire with fluoroscopic guidance. An inferior venacavogram was performed through the sheath. Multiple digital images were obtained. The dilator was then removed. The sheath was flushed with normal saline. The introducer catheter prel oaded with the Argon Option vena cava filter was then advanced. The sheath was retracted. The vena ca va filter was then released just below the origin of the renal veins. The introducer catheter was rem [place]. The placement was confirmed by a spot film radiograph. The sheath was removed and pressure was held for approximately 10 minutes with good hemostasis. Fluoroscopy time is 30 seconds and 35 images were obtained. Specimens: None. Blood loss: 5 ml. Complications: None. Log Skidder: None. Anesthesia: Local anesthesia. Graft/Implant: Argon Option vena cava filter. COMPARISON: CT angiogram of the pulmonary arteries dated 02/01/2019. FINDINGS: The inferior vena cava is patent without evidence for filling defect to suggest thrombus. It has a no rmal diameter. The origin of the renal veins are at approximately at the lower L1 level. The final image demonstrates the superior tip of the inferior vena cava filter at the lower L1 level. Ultrasound images were recorded and stored in the patient's medical record. The ultrasound images de monstrate the needle entering the right common femoral vein. IMPRESSION: 1. Inferior venacavogram performed as indicated above. 2. Successful placement of inferior vena cava filter. 3. Please contact me for retrieval of the inferior vena cava filter when it is no longer required. RPTAT: QQ .Ector Peck MD, MD Date Time Electronically viewed and signed by .Ector Peck MD, on 01/17/2019 20:47 .R/
[2019-01-18] MEDS: LEVALBUTEROL (NEB) 0.63 MG/3 ML AMP HHN SCH ×6 (00:01→20:37)
[2019-01-18 01:50] VITALS: BP 119/77; PULSE 90; RESP 18
[2019-01-18] MEDS: GUAIFENESIN 20 MG/ML 5ML CUP PO PRN ×4 (03:54→21:07)
[2019-01-18] MEDS: morphine LIQ (10 MG/5 ML) CUP PO PRN ×4 (03:54→21:05)
[2019-01-18] MEDS: LEVOFLOXACIN 750 MG TABLET PO SCH (05:35)
[2019-01-18 07:30] VITALS: BP 114/84; PULSE 98; RESP 20
[2019-01-18] MEDS: FAMOTIDINE 20 MG TAB PO SCH (09:10)
[2019-01-18] MEDS: VORICONAZOLE 200 MG TAB PO SCH ×2 (09:10→21:04)
[2019-01-18] MEDS: MAGNESIUM HYDROXIDE 30ML CUP PO PRN (09:14)
--- NOTE | 2019-01-18 10:45 | PN ---
Date/Time of Note Date/Time of Note DATE: 01/18/19 TIME: 10:42 Assessment/Plan VTE Prophylaxis Risk score (from [facility] [place])>0 risk: 4 SCD applied (from [facility] [place]): Yes Pharmacological prophylaxis: NA/contraindicated Pharm contraindication: bleeding Lines/Catheters IV Catheter Type (from [facility]): Saline Lock Urinary Cath still in place: No Assessment/Plan Hospital Course S: Patient received IVC filter placement yesterday. No acute events overnight. Per nursing staff still having some very mild hemoptysis, otherwise vital signs are stable. O: VS - see below PHYSICAL EXAMINATION: GENERAL: lying in bed, no acute distress HEENT: Pupils are equal, round, react to light. Extraocular muscles are intact. NECK: Supple. No thyromegaly. LUNGS: Distant breath sounds bilaterally. CARDIOVASCULAR: S1, S2 heard. No rubs or gallops. ABDOMEN: Soft, nontender, nondistended. Normal bowel sounds. No rebound or guarding. MUSCULOSKELETAL: No lower extremity edema bilaterally. NEUROLOGIC: No focal deficits. 2D ECHO (01/02/19) Conclusions: Normal left ventricular systolic function. Normal left ventricular cavity size. Mild concentric left ventricular hypertrophy. Ejection fraction is visually estimated at 55-60 %. Tissue Doppler/Mitral Doppler indices are consistent with impaired relaxation (Stage I diastolic dysfunction). Mild enlargement of right ventricle. Mild right ventricular hypokinesis. There is severe enlargement of right atrium. Mild mitral annular calcification. Trace mitral regurgitation. No significant aortic stenosis or insufficiency. Aortic cusps appear mildly calcified. s/p Tricuspid valve replacement. TV vmax 2.84cm. Max PG 32mmHg. Mean PG 19 mmHg. Estimated peak PA systolic pressure 45 mmHg. There is moderate tricuspid regurgitation. MADINA - January 08, 2019: FINDINGS: 1. Grossly normal left ventricular size and systolic function. 2. No definite findings of patent foramen ovale or other interatrial septal defect with color flow Doppler interrogation in interatrial septum only. 3. Normal-appearing aortic valve apparatus, no aortic regurgitation. 4. Normal-appearing mitral valve apparatus with trace to mild mitral regurgitation. 5. Tricuspid valve, status post repair with thickened leaflets and moderate to severe mitral regurgitation. No definite vegetations, but I cannot completely rule out given the TR and thickening of baseline valve. 6. The patient's permanent pacemaker leads within the RA with mild increase hyperechoic structure within them. I cannot completely rule out associated vegetations on these leads, although not typical. 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 CTA 01/02/2019 (*CORRECTED REPORT): IMPRESSION: 1. Bilateral acute pulmonary emboli. 2. A thin web in the mid right main pulmonary artery indicates probable chronic pulmonary embolism. 3. Patchy bilateral air space disease consistent with inflammatory or infectious process. 4. Bilateral cavitary lesions, mostly on the right side. These may indicate septic emboli, abscesses, other infection, or inflammatory process. 5. Diffuse mediastinal and bilateral hilar thickening which may indicate lymphadenopathy, likely reactive. 6. Very small bilateral pleural effusions. 7. Prior cardiac surgery and mild cardiomegaly. 8. Otherwise unremarkable study. Call report: A call report of the findings was made to Dr. Mcduffie on 01/15/2019 at 1245 hours. Of note, the scan was performed on 01/02/2019 but was only reported on 01/15/2019. The delayed report was due to the fact that the images were originally not available. The images may have been obtained, and recorded under a different and incorrect patient name and medical record. Dr. Mcduffie is aware of the issue regarding the delayed report. CT chest with IV contrast January 10, 2019: IMPRESSION: 1. Patchy bilateral pulmonary consolidation is noted, greatest in the left lingula, concerning for multilobar pneumonia. Atypical infectious etiologies (tuberculosis, fungal infection) are not excluded. 2. Multiple thin-walled pulmonary cavities are seen bilaterally, new when compared to the prior CT, likely chronic sequela of prior infection/infl ammation. 3. There is nonspecific prominence of mediastinal and hilar lymph nodes, possibly reactive. Prominent supraclavicular lymph nodes are noted as well, of uncertain etiology. 4. Mild bilateral pleural effusions. 5. Mild cardiomegaly. Coronary arterial and aortic atherosclerotic calcificati ons. CTA chest 01/15/19: IMPRESSION: 1. No significant interval change in multiple bilateral pulmonary emboli. No evidence of right heart strain. 2. No significant interval change in multiple pulmonary consolidations, ground- glass opacities, and cavitary lesions. Again, these may represent septic emboli, pulmonary infarction, multifocal pneumonia, or combinations of other inflammato ry processes. 3. Mediastinal, bilateral hilar, and supraclavicular lymphadenopathy is unchanged and may be reactive. Recommend attention on follow-up. 4. Stable small bilateral pleural effusions. Assessment/Plan: 28-year-old man coming in with productive cough, possible hemoptysis for last 7 to 10 days prior to admission, with signs of leukocytosis and pneumonia with a prior history of IV drug abuse, endocarditis, pacemaker and pulmonary embolism and tricuspid valve repair. # Cough and hemoptysis + Hypoxia -slowly improving but symptoms still present. Again, the original CTA chest from January 02 does in fact show bilateral acute pulmonary emboli, along with cavitary lesions and possible septic emboli. Repeat CTA chest yesterday shows similar findings. Lower semi-Doppler study performed negative for DVT. -Continue broad spectrum antibiotics, low-dose IV fluids, Tylenol p.r.n. pain and fevers. -Now status post IVC filter yesterday, monitor for -Pending crypto, cocci, aspergillus [id number] results of these tests -Follow-up recommendation from trial consultant team # Bacteremia- Blood cultures growing 2/2 bottles corynebacteria- MADINA indeterminate for vegetations on tricuspid valve. 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 -Monitor for withdrawal, counseled on cessation. # History of prior pacemaker-monitor for now, continue current cardiac medicat ions, follow cardiology recommendations # History of peptic ulcer disease - H2 sharona. Otherwise, no present issues. Result Diagram: 01/18/19 0518 01/18/19 0518 Results 24hrs Laboratory Tests Test 01/18/19 05:18 White Blood Count 7.3 Red Blood Count 3.67 L Hemoglobin 9.8 L Hematocrit 31.1 L Mean Corpuscular Volume 84.7 Mean Corpuscular Hemoglobin 26.7 L Mean Corpuscular Hemoglobin Concent 31.5 L Red Cell Distribution Width 15.9 H Platelet Count 286 Mean Platelet Volume 9.2 Immature Granulocytes % 0.500 H Neutrophils % 62.4 Lymphocytes % 18.5 Monocytes % 6.2 Eosinophils % 11.2 H Basophils % 1.2 Nucleated Red Blood Cells % 0.0 Immature Granulocytes # 0.040 H Neutrophils # 4.5 Lymphocytes # 1.4 Monocytes # 0.5 Eosinophils # 0.8 H Basophils # 0.1 Nucleated Red Blood Cells # 0.0 Sodium Level 139 Potassium Level 4.0 Chloride Level 102 Carbon Dioxide Level 28 Anion Gap 9 Blood Urea Nitrogen 11 Creatinine 0.76 Est Glomerular Filtrat Rate mL/min > 60 Glucose Level 92 Calcium Level 9.1 Phosphorus Level 5.2 H Magnesium Level 1.8 Exam/Review of Systems Exam Vitals Vital Signs Date Temp Pulse Resp B/P (MAP) Pulse Ox O2 O2 Flow FiO2 Time Delivery Rate 01/18/19 2.0 09:00 01/18/19 84 20 95 Nasal 09:00 Cannula 01/18/19 98.3 114/84 07:30 (94) 01/15/19 21 08:50 Intake and Output 01/17/19 01/17/19 01/18/19 1515:00 23:00 07:00 IntakeIntake Total 240 ml 240 ml 740 ml OutputOutput Total 2300 ml 400 ml 2300 ml BalanceBalance -2060 ml -160 ml -1560 ml Results Results 24hrs Laboratory Tests Test 01/18/19 05:18 White Blood Count 7.3 Red Blood Count 3.67 L Hemoglobin 9.8 L Hematocrit 31.1 L Mean Corpuscular Volume 84.7 Mean Corpuscular Hemoglobin 26.7 L Mean Corpuscular Hemoglobin Concent 31.5 L Red Cell Distribution Width 15.9 H Platelet Count 286 Mean Platelet Volume 9.2 Immature Granulocytes % 0.500 H Neutrophils % 62.4 Lymphocytes % 18.5 Monocytes % 6.2 Eosinophils % 11.2 H Basophils % 1.2 Nucleated Red Blood Cells % 0.0 Immature Granulocytes # 0.040 H Neutrophils # 4.5 Lymphocytes # 1.4 Monocytes # 0.5 Eosinophils # 0.8 H Basophils # 0.1 Nucleated Red Blood Cells # 0.0 Sodium Level 139 Potassium Level 4.0 Chloride Level 102 Carbon Dioxide Level 28 Anion Gap 9 Blood Urea Nitrogen 11 Creatinine 0.76 Est Glomerular Filtrat Rate mL/min > 60 Glucose Level 92 Calcium Level 9.1 Phosphorus Level 5.2 H Magnesium Level 1.8 Medications Medication Current Medications IV Flush (NS 3 ml) 3 ml PER PROTOCOL IV ; Start 12/31/18 at 18:30 Ondansetron HCl (Zofran Inj) 4 mg Q6H PRN IV NAUSEA/VOMITING Last administered on 01/15/19 20:18; Admin Dose 4 MG; Start 12/31/18 at 18:30 Acetaminophen (Tylenol Tab) 650 mg Q6H PRN PO .PAIN 1-3 OR TEMP Last administered on 01/03/19 11:17; Admin Dose 650 MG; Start 12/31/18 at 18:30 Acetaminophen/ Hydrocodone Bitart ([place] (5/325)) 1 tab Q6H PRN PO .MOD PAIN 4- 6 Last administered on 01/17/19 20:05; Admin Dose 1 TAB; Start 12/31/18 at 18:30 Docusate Sodium (Colace) 100 mg Q12H PRN PO .CONSTIPATION Last administered on 01/17/19 20:04; Admin Dose 100 MG; Start 12/31/18 at 18:30 Magnesium Hydroxide (Milk Of Mag) 30 ml DAILY PRN PO .CONSTIPATION Last administered on 01/18/19 09:14; Admin Dose 30 ML; Start 12/31/18 at 18:30 Albuterol/ Ipratropium (Duoneb) 3 ml Q4H RESP THERAPY PRN HHN SHORTNESS OF BREATH Last administered on 01/09/19 19:19; Admin Dose 3 ML; Start 12/31/18 at 18:30 Hydralazine HCl (Apresoline) 10 mg Q6H PRN IV ELEVATED BLOOD PRESSURE; Start 12/31/18 at 18:30 Nitroglycerin (Nitroglycerin (Sl Tab) 0.4 Mg) 1 tab Q5M PRN SL ANGINA; Start 12/31/18 at 18:30 Guaifenesin (Robitussin Liquid Cup) 200 mg Q4H PRN PO COUGH Last administered on 01/18/19 09:14; Admin Dose 200 MG; Start 01/01/19 at 11:30 Ibuprofen (Motrin) 600 mg Q6H PRN PO MILD PAIN LEVEL 1-3 Last administered on 01/15/19 05:34; Admin Dose 600 MG; Start 01/01/19 at 17:30 Phenol (Cepastat Lozenge) 1 lozenge Q1H PRN MT COUGH Last administered on 01/17/19 22:16; Admin Dose 1 LOZENGE; Start 01/02/19 at 12:30 Famotidine (Pepcid) 20 mg DAILY PO Last administered on 01/18/19 09:10; Admin Dose 20 MG; Start 01/03/19 at 09:00 Levofloxacin (Levaquin) 750 mg DAILY@06 PO Last administered on 01/18/19 05:35; Admin Dose 750 MG; Start 01/08/19 at 06:00 Morphine Sulfate (morphine) 6 mg Q4H PRN PO SEVERE PAIN LEVEL 7-10 Last administered on 01/18/19 09:14; Admin Dose 6 MG; Start 01/07/19 at 23:30 Ceftriaxone Sodium 50 ml @ 100 mls/hr Q24H IVPB Last administered on 01/17/19 13:21; Admin Dose 100 MLS/HR; Start 01/09/19 at 13:00 Levalbuterol (Xopenex Neb) 0.63 mg Q4H RESP THERAPY HHN Last administered on 01/17/19 09:00; Admin Dose 0.63 MG; Start 01/10/19 at 01:00 Voriconazole (Vfend) 200 mg BID PO Last administered on 01/18/19 09:10; Admin Dose 200 MG; Start 01/11/19 at 13:00 ROWAN OVALLE Jan 18, 2019 10:45
[2019-01-18] MEDS: CEFTRIAXONE 1 GM/50 ML (PMX) 50 ML IVPB SCH (13:35)
--- NOTE | 2019-01-18 14:08 | CONS ---
Consult Date/Type/Reason Admit Date/Time Dec 31, 2018 at 18:14 Initial Consult Date Requesting Provider: ALEX CLARKE MD Date/Time of Note DATE: 01/18/19 TIME: 14:06 Subjective No events overnight. Objective Vitals Vital Signs Date Temp Pulse Resp B/P (MAP) Pulse Ox O2 O2 Flow FiO2 Time Delivery Rate 01/18/19 80 20 94 Nasal 2.0 13:32 Cannula 01/18/19 98.3 114/84 07:30 (94) 01/15/19 21 08:50 Intake and Output 01/17/19 01/17/19 01/18/19 1515:00 23:00 07:00 IntakeIntake Total 240 ml 240 ml 740 ml OutputOutput Total 2300 ml 400 ml 2300 ml BalanceBalance -2060 ml -160 ml -1560 ml Exam HEENT: Neck supple; no JVD; no LAD CVS: RRR, S1 and S2 CHEST: Coarse BS b/l ABD: Soft, NT, + BS EXT: No c/c/e Results/Medications Result Diagram: 01/18/1951701/18/19517 Results 24 hrs Laboratory Tests Test 01/18/19 05:18 White Blood Count 7.3 Red Blood Count 3.67 L Hemoglobin 9.8 L Hematocrit 31.1 L Mean Corpuscular Volume 84.7 Mean Corpuscular Hemoglobin 26.7 L Mean Corpuscular Hemoglobin Concent 31.5 L Red Cell Distribution Width 15.9 H Platelet Count 286 Mean Platelet Volume 9.2 Immature Granulocytes % 0.500 H Neutrophils % 62.4 Lymphocytes % 18.5 Monocytes % 6.2 Eosinophils % 11.2 H Basophils % 1.2 Nucleated Red Blood Cells % 0.0 Immature Granulocytes # 0.040 H Neutrophils # 4.5 Lymphocytes # 1.4 Monocytes # 0.5 Eosinophils # 0.8 H Basophils # 0.1 Nucleated Red Blood Cells # 0.0 Sodium Level 139 Potassium Level 4.0 Chloride Level 102 Carbon Dioxide Level 28 Anion Gap 9 Blood Urea Nitrogen 11 Creatinine 0.76 Est Glomerular Filtrat Rate mL/min > 60 Glucose Level 92 Calcium Level 9.1 Phosphorus Level 5.2 H Magnesium Level 1.8 Home Meds Reported Medications Aspirin* (Aspirin* EC) 81 Mg Tablet.dr, 81 MG PO DAILY, TAB TAKE 2 OR 3 TIMES A DAY 04/27/18 Medications Current Medications IV Flush (NS 3 ml) 3 ml PER PROTOCOL IV ; Start 12/31/18 at 18:30 Ondansetron HCl (Zofran Inj) 4 mg Q6H PRN IV NAUSEA/VOMITING Last administered on 01/15/19 20:18; Admin Dose 4 MG; Start 12/31/18 at 18:30 Acetaminophen (Tylenol Tab) 650 mg Q6H PRN PO .PAIN 1-3 OR TEMP Last administered on 01/03/19 11:17; Admin Dose 650 MG; Start 12/31/18 at 18:30 Acetaminophen/ Hydrocodone Bitart ([place] (5/325)) 1 tab Q6H PRN PO .MOD PAIN 4- 6 Last administered on 01/17/19 20:05; Admin Dose 1 TAB; Start 12/31/18 at 18:30 Docusate Sodium (Colace) 100 mg Q12H PRN PO .CONSTIPATION Last administered on 01/17/19 20:04; Admin Dose 100 MG; Start 12/31/18 at 18:30 Magnesium Hydroxide (Milk Of Mag) 30 ml DAILY PRN PO .CONSTIPATION Last administered on 01/18/19 09:14; Admin Dose 30 ML; Start 12/31/18 at 18:30 Albuterol/ Ipratropium (Duoneb) 3 ml Q4H RESP THERAPY PRN HHN SHORTNESS OF BREATH Last administered on 01/09/19 19:19; Admin Dose 3 ML; Start 12/31/18 at 18:30 Hydralazine HCl (Apresoline) 10 mg Q6H PRN IV ELEVATED BLOOD PRESSURE; Start 12/31/18 at 18:30 Nitroglycerin (Nitroglycerin (Sl Tab) 0.4 Mg) 1 tab Q5M PRN SL ANGINA; Start 12/31/18 at 18:30 Guaifenesin (Robitussin Liquid Cup) 200 mg Q4H PRN PO COUGH Last administered on 01/18/19 09:14; Admin Dose 200 MG; Start 01/01/19 at 11:30 Ibuprofen (Motrin) 600 mg Q6H PRN PO MILD PAIN LEVEL 1-3 Last administered on 01/15/19 05:34; Admin Dose 600 MG; Start 01/01/19 at 17:30 Phenol (Cepastat Lozenge) 1 lozenge Q1H PRN MT COUGH Last administered on 01/17/19 22:16; Admin Dose 1 LOZENGE; Start 01/02/19 at 12:30 Famotidine (Pepcid) 20 mg DAILY PO Last administered on 01/18/19 09:10; Admin Dose 20 MG; Start 01/03/19 at 09:00 Levofloxacin (Levaquin) 750 mg DAILY@06 PO Last administered on 01/18/19 05:35; Admin Dose 750 MG; Start 01/08/19 at 06:00 Morphine Sulfate (morphine) 6 mg Q4H PRN PO SEVERE PAIN LEVEL 7-10 Last administered on 01/18/19 09:14; Admin Dose 6 MG; Start 01/07/19 at 23:30 Ceftriaxone Sodium 50 ml @ 100 mls/hr Q24H IVPB Last administered on 01/18/19 13:35; Admin Dose 100 MLS/HR; Start 01/09/19 at 13:00 Levalbuterol (Xopenex Neb) 0.63 mg Q4H RESP THERAPY HHN Last administered on 01/18/19 13:32; Admin Dose 0.63 MG; Start 01/10/19 at 01:00 Voriconazole (Vfend) 200 mg BID PO Last administered on 01/18/19 09:10; Admin Dose 200 MG; Start 01/11/19 at 13:00 Assessment/Plan Assessment/Plan (Daily) IMP: 1. Acute PE 2. Septic Pulmonary Emboli RECS: 1. Follow all hemoptysis and quantify 2. s/p IVC filter 3. Abx per ID MILO DONG MD Jan 18, 2019 14:08
[2019-01-18 14:15] VITALS: BP 131/82; PULSE 84; RESP 20
--- NOTE | 2019-01-18 15:02 | CONS ---
Consult Date/Type/Reason Admit Date/Time Dec 31, 2018 at 18:14 Initial Consult Date Requesting Provider: ALEX CLARKE MD Date/Time of Note DATE: 01/18/19 TIME: 15:00 Subjective S/p IVC filter - tolerated well - no cp - on anti-Bx ROS: No fever, no chills, no nausea, no vomiting, no diarrhea/constipation - + cough No recent weight changes No chest pain, no PND, no orthopnea No dizziness, blurred vision No thirst, no heat or cold intolerance Objective Vitals Vital Signs Date Temp Pulse Resp B/P (MAP) Pulse Ox O2 O2 Flow FiO2 Time Delivery Rate 01/18/19 80 20 94 Nasal 2.0 13:32 Cannula 01/18/19 98.3 114/84 07:30 (94) 01/15/19 08:50 Intake and Output 01/17/19 01/17/19 01/18/19 1515:00 23:00 07:00 IntakeIntake Total 240 ml 240 ml 740 ml OutputOutput Total 2300 ml 400 ml 2300 ml BalanceBalance -2060 ml -160 ml -1560 ml Exam General: WN/WD/NAD, AOx 3 HEENT: Unicetric/atraumatic/EOMI (follow commands) NECK: JVD elevated, no thyromegaly Lymph: no lymphadenopathy HEART: regular with no S3, II/ systolic murmur at apex, pacer LUNGS: Coarse sounds ABD: soft, NT, ND, +BS : Intact Neuro: non focal SKIN: chronic changes, tabooed EXT: trace edema Results/Medications Result Diagram: 01/18/1918 01/18/1918 Results 24 hrs Laboratory Tests Test 01/18/19 05:18 White Blood Count 7.3 Red Blood Count 3.67 L Hemoglobin 9.8 L Hematocrit 31.1 L Mean Corpuscular Volume 84.7 Mean Corpuscular Hemoglobin 26.7 L Mean Corpuscular Hemoglobin Concent 31.5 L Red Cell Distribution Width 15.9 H Platelet Count 286 Mean Platelet Volume 9.2 Immature Granulocytes % 0.500 H Neutrophils % 62.4 Lymphocytes % 18.5 Monocytes % 6.2 Eosinophils % 11.2 H Basophils % 1.2 Nucleated Red Blood Cells % 0.0 Immature Granulocytes # 0.040 H Neutrophils # 4.5 Lymphocytes # 1.4 Monocytes # 0.5 Eosinophils # 0.8 H Basophils # 0.1 Nucleated Red Blood Cells # 0.0 Sodium Level 139 Potassium Level 4.0 Chloride Level 102 Carbon Dioxide Level 28 Anion Gap 9 Blood Urea Nitrogen 11 Creatinine 0.76 Est Glomerular Filtrat Rate mL/min > 60 Glucose Level 92 Calcium Level 9.1 Phosphorus Level 5.2 H Magnesium Level 1.8 Home Meds Reported Medications Aspirin* (Aspirin* EC) 81 Mg Tablet.dr, 81 MG PO DAILY, TAB TAKE 2 OR 3 TIMES A DAY 04/27/18 Medications Current Medications IV Flush (NS 3 ml) 3 ml PER PROTOCOL IV ; Start 12/31/18 at 18:30 Ondansetron HCl (Zofran Inj) 4 mg Q6H PRN IV NAUSEA/VOMITING Last administered on 01/15/19 20:18; Admin Dose 4 MG; Start 12/31/18 at 18:30 Acetaminophen (Tylenol Tab) 650 mg Q6H PRN PO .PAIN 1-3 OR TEMP Last administered on 01/03/19 11:17; Admin Dose 650 MG; Start 12/31/18 at 18:30 Acetaminophen/ Hydrocodone Bitart ([place] (5/325)) 1 tab Q6H PRN PO .MOD PAIN 4- 6 Last administered on 01/17/19 20:05; Admin Dose 1 TAB; Start 12/31/18 at 18:30 Docusate Sodium (Colace) 100 mg Q12H PRN PO .CONSTIPATION Last administered on 01/17/19 20:04; Admin Dose 100 MG; Start 12/31/18 at 18:30 Magnesium Hydroxide (Milk Of Mag) 30 ml DAILY PRN PO .CONSTIPATION Last administered on 01/18/19 09:14; Admin Dose 30 ML; Start 12/31/18 at 18:30 Albuterol/ Ipratropium (Duoneb) 3 ml Q4H RESP THERAPY PRN HHN SHORTNESS OF BREATH Last administered on 01/09/19 19:19; Admin Dose 3 ML; Start 12/31/18 at 18:30 Hydralazine HCl (Apresoline) 10 mg Q6H PRN IV ELEVATED BLOOD PRESSURE; Start 12/31/18 at 18:30 Nitroglycerin (Nitroglycerin (Sl Tab) 0.4 Mg) 1 tab Q5M PRN SL ANGINA; Start 12/31/18 at 18:30 Guaifenesin (Robitussin Liquid Cup) 200 mg Q4H PRN PO COUGH Last administered on 01/18/19 09:14; Admin Dose 200 MG; Start 01/01/19 at 11:30 Ibuprofen (Motrin) 600 mg Q6H PRN PO MILD PAIN LEVEL 1-3 Last administered on 01/15/19 05:34; Admin Dose 600 MG; Start 01/01/19 at 17:30 Phenol (Cepastat Lozenge) 1 lozenge Q1H PRN MT COUGH Last administered on 01/17/19 22:16; Admin Dose 1 LOZENGE; Start 01/02/19 at 12:30 Famotidine (Pepcid) 20 mg DAILY PO Last administered on 01/18/19 09:10; Admin Dose 20 MG; Start 01/03/19 at 09:00 Levofloxacin (Levaquin) 750 mg DAILY@06 PO Last administered on 01/18/19 05:35; Admin Dose 750 MG; Start 01/08/19 at 06:00 Morphine Sulfate (morphine) 6 mg Q4H PRN PO SEVERE PAIN LEVEL 7-10 Last administered on 01/18/19 09:14; Admin Dose 6 MG; Start 01/07/19 at 23:30 Ceftriaxone Sodium 50 ml @ 100 mls/hr Q24H IVPB Last administered on 01/18/19 13:35; Admin Dose 100 MLS/HR; Start 01/09/19 at 13:00 Levalbuterol (Xopenex Neb) 0.63 mg Q4H RESP THERAPY HHN Last administered on 01/18/19 13:32; Admin Dose 0.63 MG; Start 01/10/19 at 01:00 Voriconazole (Vfend) 200 mg BID PO Last administered on 01/18/19 09:10; Admin Dose 200 MG; Start 01/11/19 at 13:00 Assessment/Plan Hospital Course (Demo Recall) 1. Bacteremia, assess for intracardiac source of infection, rule out endocardi tis.- s/p MADINA 01/08 with chronic prior changes of TVR and nonspecific findings associated with pacer leads. No definite findings of vegetations. bLD CX'S 01/01 remain negative to date - defer to DR. Nicole for MADINA. Stable now. 2. History of permanent pacemaker - site looks well-con't to follow. No e vidence of infection. 3. History of tricuspid valve repair - stable by exam. Con't to follow. 4. History of IV drug abuse with ongoing drug usage and toxicology positive for amphetamines and cannabinoids. D/C advised. 5. History of peptic ulcer disease. 6. Cough and hemoptysis.- s/p chest CT with cavitary lesions and PE - pulmonary follows. On anti-bx LUIS SCOTT MD Jan 18, 2019 15:02
--- NOTE | 2019-01-18 16:36 | CONS ---
Assessment/Plan Assessment/Plan Hospital Course (Demo Recall) ID PROGRESS NOTE CURRENT ABX: DAY # Levaquin, Rocephin, Vfend. s/p Azith + Cefepime 01/18/19 0518 01/18/19 0518 24H INTERVAL SUMMARY * POD#1-> s/p IVC Filter placement 01/17/19 * Patient is resting comfortably, VSS, no fevers, NAD, no complaints DIAGNOSTIC IMAGING * Chest x-ray on admission revealed focal left lower lobe infiltrate. Mild right midlung atelectasis. * 2D ECHO 01/02/19) Conclusions: Normal left ventricular systolic function. Normal left ventricular cavity size. Mild concentric left ventricular hypertrophy. Ejection fraction is visually estimated at 55-60 %. Tissue Doppler/Mitral Doppler indices are consistent with impaired relaxation (Stage I diastolic dysfunction). Mild enlargement of right ventricle. Mild right ventricular hypokinesis. There is severe enlargement of right atrium. Mild mitral annular calcification. Trace mitral regurgitation. No significant aortic stenosis or insufficiency. Aortic cusps appear mildly calcified. s/p Tricuspid valve replacement. TV vmax 2.84cm. Max PG 32mmHg. Mean PG 19 mmHg. Estimated peak PA systolic pressure 45 mmHg. There is moderate tricuspid regurgitation. MICRO/OTHER * Microbiology: Blood culture on admission grew Corynebacterium species. Repeat blood cultures on January 01 and January 11 negative * HIV serology negative. Crypto neg * SPUTUM CX: RESPIRATORY CULTURE Preliminary Organism 1 NORMAL RESPIRATORY ASHLEY QUANTITY 1+ * (-) MRSA nares * Blood cultures + Organism 1 CORYNEBACTERIUM SPECIES CORYN SPS Zone Size RX --------- --- * AMPICILLIN S * CEFAZOLIN S * CEFOTAXIME S * CEFUROXIME S * CIPROFLOXACIN R * CLINDAMYCIN S * ERYTHROMYCIN S * PENICILLIN S * VANCOMYCIN S PHYSICAL EXAMINATION: GENERAL: VSS HEENT: AT, NC, anicteric NECK: Supple, CHEST: Equal chest rise bilaterally, without dyspnea on observation HEART: Pulse RRR ABDOMEN: Soft / NT EXTREMITIES: Warm, dry SKIN: No rash, no diaphoresis ID ASSESSMENT 28 yo M admit with: 1. S/p sepsis present on admission, resolving 2. Community-acquired pneumonia with repeat CT notes multiple thin-walled cavities dense infiltrates and possible mycetoma. 3. Hemoptysis/PE 4. History of endocarditis==> MADINA indeterminate for vegetations on tricuspid valve 5. IV drug abuse 6. Coronary artery disease with a history of tricuspid valve replacement and permanent pacemaker placement 6. Bacteremia (-)MRSA Nares ABX ALLERGIES: KNDA INVASIVES: PIV CURRENT ABX: DAY #Levaquin, Rocephin, Vfend. s/p Azith + Cefepime ID RECOMMENDATIONS/PLAN: 1. Continue current ABX 2. DC PLANNING: anticipate dc on Rocephin and Vfend for 4 more weeks, f/u cocci and Aspergillus serology, if negative no need for Vfend . Consultation Date/Type/Reason Admit Date/Time Dec 31, 2018 at 18:14 Initial Consult Date Requesting Provider: ALEX CLARKE MD Date/Time of Note DATE: 01/18/19 TIME: 16:30 Exam/Review of Systems Exam Vitals Vital Signs Date Temp Pulse Resp B/P (MAP) Pulse Ox O2 O2 Flow FiO2 Time Delivery Rate 01/18/19 98.0 84 20 131/82 94 Room Air 14:15 (98) 01/18/19 2.0 13:32 01/15/19 21 08:50 Intake and Output 01/17/19 01/17/19 01/18/19 1515:00 23:00 07:00 IntakeIntake Total 240 ml 240 ml 740 ml OutputOutput Total 2300 ml 400 ml 2300 ml BalanceBalance -2060 ml -160 ml -1560 ml Results Result Diagram: 01/18/19 0518 01/18/19 0518 Results 24hrs Laboratory Tests Test 01/18/19 05:18 White Blood Count 7.3 Red Blood Count 3.67 L Hemoglobin 9.8 L Hematocrit 31.1 L Mean Corpuscular Volume 84.7 Mean Corpuscular Hemoglobin 26.7 L Mean Corpuscular Hemoglobin Concent 31.5 L Red Cell Distribution Width 15.9 H Platelet Count 286 Mean Platelet Volume 9.2 Immature Granulocytes % 0.500 H Neutrophils % 62.4 Lymphocytes % 18.5 Monocytes % 6.2 Eosinophils % 11.2 H Basophils % 1.2 Nucleated Red Blood Cells % 0.0 Immature Granulocytes # 0.040 H Neutrophils # 4.5 Lymphocytes # 1.4 Monocytes # 0.5 Eosinophils # 0.8 H Basophils # 0.1 Nucleated Red Blood Cells # 0.0 Sodium Level 139 Potassium Level 4.0 Chloride Level 102 Carbon Dioxide Level 28 Anion Gap 9 Blood Urea Nitrogen 11 Creatinine 0.76 Est Glomerular Filtrat Rate mL/min > 60 Glucose Level 92 Calcium Level 9.1 Phosphorus Level 5.2 H Magnesium Level 1.8 Medications Medication Current Medications IV Flush (NS 3 ml) 3 ml PER PROTOCOL IV ; Start 12/31/18 at 18:30 Ondansetron HCl (Zofran Inj) 4 mg Q6H PRN IV NAUSEA/VOMITING Last administered on 01/15/19 20:18; Admin Dose 4 MG; Start 12/31/18 at 18:30 Acetaminophen (Tylenol Tab) 650 mg Q6H PRN PO .PAIN 1-3 OR TEMP Last administered on 01/03/19 11:17; Admin Dose 650 MG; Start 12/31/18 at 18:30 Acetaminophen/ Hydrocodone Bitart ([place] (5/325)) 1 tab Q6H PRN PO .MOD PAIN 4- 6 Last administered on 01/17/19 20:05; Admin Dose 1 TAB; Start 12/31/18 at 18:30 Docusate Sodium (Colace) 100 mg Q12H PRN PO .CONSTIPATION Last administered on 01/17/19 20:04; Admin Dose 100 MG; Start 12/31/18 at 18:30 Magnesium Hydroxide (Milk Of Mag) 30 ml DAILY PRN PO .CONSTIPATION Last administered on 01/18/19 09:14; Admin Dose 30 ML; Start 12/31/18 at 18:30 Albuterol/ Ipratropium (Duoneb) 3 ml Q4H RESP THERAPY PRN HHN SHORTNESS OF BREATH Last administered on 01/09/19 19:19; Admin Dose 3 ML; Start 12/31/18 at 18:30 Hydralazine HCl (Apresoline) 10 mg Q6H PRN IV ELEVATED BLOOD PRESSURE; Start 12/31/18 at 18:30 Nitroglycerin (Nitroglycerin (Sl Tab) 0.4 Mg) 1 tab Q5M PRN SL ANGINA; Start 12/31/18 at 18:30 Guaifenesin (Robitussin Liquid Cup) 200 mg Q4H PRN PO COUGH Last administered on 01/18/19 15:50; Admin Dose 200 MG; Start 01/01/19 at 11:30 Ibuprofen (Motrin) 600 mg Q6H PRN PO MILD PAIN LEVEL 1-3 Last administered on 01/15/19 05:34; Admin Dose 600 MG; Start 01/01/19 at 17:30 Phenol (Cepastat Lozenge) 1 lozenge Q1H PRN MT COUGH Last administered on 01/17/19 22:16; Admin Dose 1 LOZENGE; Start 01/02/19 at 12:30 Famotidine (Pepcid) 20 mg DAILY PO Last administered on 01/18/19 09:10; Admin Dose 20 MG; Start 01/03/19 at 09:00 Levofloxacin (Levaquin) 750 mg DAILY@06 PO Last administered on 01/18/19 05:35; Admin Dose 750 MG; Start 01/08/19 at 06:00 Morphine Sulfate (morphine) 6 mg Q4H PRN PO SEVERE PAIN LEVEL 7-10 Last administered on 01/18/19 15:07; Admin Dose 6 MG; Start 01/07/19 at 23:30 Ceftriaxone Sodium 50 ml @ 100 mls/hr Q24H IVPB Last administered on 01/18/19 13:35; Admin Dose 100 MLS/HR; Start 01/09/19 at 13:00 Levalbuterol (Xopenex Neb) 0.63 mg Q4H RESP THERAPY HHN Last administered on 01/18/19 16:07; Admin Dose 0.63 MG; Start 01/10/19 at 01:00 Voriconazole (Vfend) 200 mg BID PO Last administered on 01/18/19 09:10; Admin Dose 200 MG; Start 01/11/19 at 13:00 EMILIE BAUTISTA NP Jan 18, 2019 16:36
[2019-01-18 20:04] VITALS: BP 131/88; PULSE 93; RESP 18
[2019-01-19 02:00] VITALS: BP 138/82; PULSE 77; RESP 20
[2019-01-19] MEDS: LEVALBUTEROL (NEB) 0.63 MG/3 ML AMP HHN SCH ×6 (02:08→20:26)
[2019-01-19] MEDS: GUAIFENESIN 20 MG/ML 5ML CUP PO PRN ×3 (02:45→21:15)
[2019-01-19] MEDS: morphine LIQ (10 MG/5 ML) CUP PO PRN ×4 (02:46→21:16)
[2019-01-19] MEDS: LEVOFLOXACIN 750 MG TABLET PO SCH (05:51)
[2019-01-19 07:38] VITALS: BP 128/83; PULSE 95; RESP 16
[2019-01-19] MEDS: ONDANSETRON 4 MG INJ IV PRN (08:15)
[2019-01-19] MEDS: FAMOTIDINE 20 MG TAB PO SCH (08:18)
[2019-01-19] MEDS: VORICONAZOLE 200 MG TAB PO SCH ×2 (08:30→21:11)
--- NOTE | 2019-01-19 09:49 | CONS ---
Consult Date/Type/Reason Admit Date/Time Dec 31, 2018 at 18:14 Initial Consult Date Requesting Provider: ALEX CLARKE MD Date/Time of Note DATE: 01/19/19 TIME: 09:48 Subjective VS reviewed - stable Objective Vitals Vital Signs Date Temp Pulse Resp B/P (MAP) Pulse Ox O2 O2 Flow FiO2 Time Delivery Rate 01/19/19 98.4 95 16 128/83 95 07:38 (98) 01/19/19 Nasal 2.0 02:08 Cannula 01/15/19 08:50 Intake and Output 01/18/19 01/18/19 01/19/19 1515:00 23:00 07:00 IntakeIntake Total 770 ml 700 ml 300 ml OutputOutput Total 2900 ml 1500 ml 2450 ml BalanceBalance -2130 ml -800 ml -2150 ml Results/Medications Result Diagram: 01/18/1951701/18/19517 Home Meds Reported Medications Aspirin* (Aspirin* EC) 81 Mg Tablet.dr, 81 MG PO DAILY, TAB TAKE 2 OR 3 TIMES A DAY 04/27/18 Medications Current Medications IV Flush (NS 3 ml) 3 ml PER PROTOCOL IV ; Start 12/31/18 at 18:30 Ondansetron HCl (Zofran Inj) 4 mg Q6H PRN IV NAUSEA/VOMITING Last administered on 01/19/19 08:15; Admin Dose 4 MG; Start 12/31/18 at 18:30 Acetaminophen (Tylenol Tab) 650 mg Q6H PRN PO .PAIN 1-3 OR TEMP Last administered on 01/03/19 11:17; Admin Dose 650 MG; Start 12/31/18 at 18:30 Acetaminophen/ Hydrocodone Bitart ([place] (5/325)) 1 tab Q6H PRN PO .MOD PAIN 4- 6 Last administered on 01/17/19 20:05; Admin Dose 1 TAB; Start 12/31/18 at 18:30 Docusate Sodium (Colace) 100 mg Q12H PRN PO .CONSTIPATION Last administered on 01/17/19 20:04; Admin Dose 100 MG; Start 12/31/18 at 18:30 Magnesium Hydroxide (Milk Of Mag) 30 ml DAILY PRN PO .CONSTIPATION Last administered on 01/18/19 09:14; Admin Dose 30 ML; Start 12/31/18 at 18:30 Albuterol/ Ipratropium (Duoneb) 3 ml Q4H RESP THERAPY PRN HHN SHORTNESS OF BREATH Last administered on 01/09/19 19:19; Admin Dose 3 ML; Start 12/31/18 at 18:30 Hydralazine HCl (Apresoline) 10 mg Q6H PRN IV ELEVATED BLOOD PRESSURE; Start 12/31/18 at 18:30 Nitroglycerin (Nitroglycerin (Sl Tab) 0.4 Mg) 1 tab Q5M PRN SL ANGINA; Start 12/31/18 at 18:30 Guaifenesin (Robitussin Liquid Cup) 200 mg Q4H PRN PO COUGH Last administered on 01/19/19at 02:45; Admin Dose 200 MG; Start 01/01/19 at 11:30 Ibuprofen (Motrin) 600 mg Q6H PRN PO MILD PAIN LEVEL 1-3 Last administered on 01/15/19 05:34; Admin Dose 600 MG; Start 01/01/19 at 17:30 Phenol (Cepastat Lozenge) 1 lozenge Q1H PRN MT COUGH Last administered on 01/17/19 22:16; Admin Dose 1 LOZENGE; Start 01/02/19 at 12:30 Famotidine (Pepcid) 20 mg DAILY PO Last administered on 01/19/19 08:18; Admin Dose 20 MG; Start 01/03/19 at 09:00 Levofloxacin (Levaquin) 750 mg DAILY@06 PO Last administered on 01/19/19 05:51; Admin Dose 750 MG; Start 01/08/19 at 06:00 Morphine Sulfate (morphine) 6 mg Q4H PRN PO SEVERE PAIN LEVEL 7-10 Last admini stered on 01/19/19 08:19; Admin Dose 6 MG; Start 01/07/19 at 23:30 Ceftriaxone Sodium 50 ml @ 100 mls/hr Q24H IVPB Last administered on 01/18/19 13:35; Admin Dose 100 MLS/HR; Start 01/09/19 at 13:00 Levalbuterol (Xopenex Neb) 0.63 mg Q4H RESP THERAPY HHN Last administered on 01/19/19 09:41; Admin Dose 0.63 MG; Start 01/10/19 at 01:00 Voriconazole (Vfend) 200 mg BID PO Last administered on 01/19/19at 08:30; Admin Dose 200 MG; Start 01/11/19 at 13:00 Assessment/Plan Hospital Course (Demo Recall) 1. Bacteremia, assess for intracardiac source of infection, rule out endocarditis.- s/p MADINA 01/08 with chronic prior changes of TVR and nonspecific findings associated with pacer leads. No definite findings of vegetations. bLD CX'S 01/01 remain negative to date - defer to DR. Nicole for MADINA. Stable now. 2. History of permanent pacemaker - site looks well-con't to follow. No evidence of infection. 3. History of tricuspid valve repair - stable by exam. Con't to follow. 4. History of IV drug abuse with ongoing drug usage and toxicology positive for amphetamines and cannabinoids. D/C advised. 5. History of peptic ulcer disease. 6. Cough and hemoptysis.- s/p chest CT with cavitary lesions and PE - pulmonary follows. On anti-bx LUIS SCOTT MD Jan 19, 2019 09:49
--- NOTE | 2019-01-19 12:26 | PN ---
Date/Time of Note Date/Time of Note DATE: 01/19/19 TIME: 12:24 Assessment/Plan VTE Prophylaxis Risk score (from Ns)>0 risk: 4 SCD applied (from [facility] [place] Yes Pharmacological prophylaxis: NA/contraindicated Pharm contraindication: bleeding Lines/Catheters IV [facility]from [facility] [place] Urinary Cath still in place: No Assessment/Plan Hospital Course S: Patient still with some cough symptoms and chest pressure, less hemoptysis now, no acute events overnight. Seen by cardiology team earlier today. O: VS - see below PHYSICAL EXAMINATION: GENERAL: lying in bed, no acute distress HEENT: Pupils are equal, round, react to light. Extraocular muscles are intact. NECK: Supple. No thyromegaly. LUNGS: Distant breath sounds bilaterally. CARDIOVASCULAR: S1, S2 heard. No rubs or gallops. ABDOMEN: Soft, nontender, nondistended. Normal bowel sounds. No rebound or guarding. MUSCULOSKELETAL: No lower extremity edema bilaterally. NEUROLOGIC: No focal deficits. 2D ECHO (01/02/19) Conclusions: Normal left ventricular systolic function. Normal left ventricular cavity size. Mild concentric left ventricular hypertrophy. Ejection fraction is visually estimated at 55-60 %. Tissue Doppler/Mitral Doppler indices are consistent with impaired relaxation (Stage I diastolic dysfunction). Mild enlargement of right ventricle. Mild right ventricular hypokinesis. There is severe enlargement of right atrium. Mild mitral annular calcification. Trace mitral regurgitation. No significant aortic stenosis or insufficiency. Aortic cusps appear mildly calcified. s/p Tricuspid valve replacement. TV vmax 2.84cm. Max PG 32mmHg. Mean PG 19 mmHg. Estimated peak PA systolic pressure 45 mmHg. There is moderate tricuspid regurgitation. MADINA - January 08, 2019: FINDINGS: 1. Grossly normal left ventricular size and systolic function. 2. No definite findings of patent foramen ovale or other interatrial septal defect with color flow Doppler interrogation in interatrial septum only. 3. Normal-appearing aortic valve apparatus, no aortic regurgitation. 4. Normal-appearing mitral valve apparatus with trace to mild mitral re gurgitation. 5. Tricuspid valve, status post repair with thickened leaflets and moderate to severe mitral regurgitation. No definite vegetations, but I cannot completely rule out given the TR and thickening of baseline valve. 6. The patient's permanent pacemaker leads within the RA with mild increase hyperechoic structure within them. I cannot completely rule out associated vegetations on these leads, although not typical. 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 CTA 01/02/2019 (*CORRECTED REPORT): IMPRESSION: 1. Bilateral acute pulmonary emboli. 2. A thin web in the mid right main pulmonary artery indicates probable chronic pulmonary embolism. 3. Patchy bilateral air space disease consistent with inflammatory or infectious process. 4. Bilateral cavitary lesions, mostly on the right side. These may indicate septic emboli, abscesses, other infection, or inflammatory process. 5. Diffuse mediastinal and bilateral hilar thickening which may indicate lymphadenopathy, likely reactive. 6. Very small bilateral pleural effusions. 7. Prior cardiac surgery and mild cardiomegaly. 8. Otherwise unremarkable study. Call report: A call report of the findings was made to Dr. Mcduffie on 01/15/2019 at 1245 hours. Of note, the scan was performed on 01/02/2019 but was only reported on 01/15/2019. The delayed report was due to the fact that the images were originally not available. The images may have been obtained, and recorded under a different and incorrect patient name and medical record. Dr. Mcduffie is aware of the issue regarding the delayed report. CT chest with IV contrast January 10, 2019: IMPRESSION: 1. Patchy bilateral pulmonary consolidation is noted, greatest in the left lingula, concerning for multilobar pneumonia. Atypical infectious etiologies (tuberculosis, fungal infection) are not excluded. 2. Multiple thin-walled pulmonary cavities are seen bilaterally, new when compared to the prior CT, likely chronic sequela of prior infection/inflammation. 3. There is nonspecific prominence of mediastinal and hilar lymph nodes, possibly reactive. Prominent supraclavicular lymph nodes are noted as well, of uncertain etiology. 4. Mild bilateral pleural effusions. 5. Mild cardiomegaly. Coronary arterial and aortic atherosclerotic calcifications. CTA chest 01/15/19: IMPRESSION: 1. No significant interval change in multiple bilateral pulmonary emboli. No evidence of right heart strain. 2. No significant interval change in multiple pulmonary consolidations, ground- glass opacities, and cavitary lesions. Again, these may represent septic emboli, pulmonary infarction, multifocal pneumonia, or combinations of other inflammatory processes. 3. Mediastinal, bilateral hilar, and supraclavicular lymphadenopathy is unchanged and may be reactive. Recommend attention on follow-up. 4. Stable small bilateral pleural effusions. Assessment/Plan: 28-year-old man coming in with productive cough, possible hemo ptysis for last 7 to 10 days prior to admission, with signs of leukocytosis and pneumonia with a prior history of IV drug abuse, endocarditis, pacemaker and pulmonary embolism and tricuspid valve repair. # Cough and hemoptysis + Hypoxia -slowly improving but symptoms still present. Again, the original CTA chest from January 02 does in fact show bilateral acute pulmonary emboli, along with cavitary lesions and possible septic emboli. Repeat CTA chest yesterday shows similar findings. Lower semi-Doppler study performed negative for DVT. -Continue broad spectrum antibiotics, low-dose IV fluids, Tylenol p.r.n. pain and fevers. -Now status post IVC filter placement 2 days ago, monitor -Pending crypto, cocci, aspergillus [id number] results of these tests -Follow-up recommendation from it systems analyst consultant team - For now, per ID anticipate dc on Rocephin and Vfend for 4 more weeks, f/u cocci and Aspergillus serology, if negative no need for Vfend # Bacteremia- Blood cultures growing 2/2 bottles corynebacteria- MADINA indeterminate for vegetations on tricuspid valve. -For now, per ID anticipate dc on Rocephin and Vfend for 4 more weeks, f/u cocci and Aspergillus serology, if negative no need for Vfend # History of IV drug abuse including methamphetamine and weeds- U-tox is po sitive this time for the same drugs. -Monitor for withdrawal, counseled on cessation. # History of prior pacemaker-monitor for now, continue current cardiac medications, follow cardiology recommendations # History of peptic ulcer disease - H2 sharona. Otherwise, no present issues. Result Diagram: 01/18/1951701/18/19517 Exam/Review of Systems Exam Vitals Vital Signs Date Temp Pulse Resp B/P (MAP) Pulse Ox O2 O2 Flow FiO2 Time Delivery Rate 01/19/19 98.4 95 16 128/83 95 07:38 (98) 01/19/19 Nasal 2.0 02:08 Cannula 01/15/19 21 08:50 Intake and Output 301/18/19 01/19/19 1515:00 23:00 07:00 IntakeIntake Total 770 ml 700 ml 300 ml OutputOutput Total 2900 ml 1500 ml 2450 ml BalanceBalance -2130 ml -800 ml -2150 ml Medications Medication Current Medications IV Flush (NS 3 ml) 3 ml PER PROTOCOL IV ; Start 12/31/18 at 18:30 Ondansetron HCl (Zofran Inj) 4 mg Q6H PRN IV NAUSEA/VOMITING Last administered on 01/19/19 08:15; Admin Dose 4 MG; Start 12/31/18 at 18:30 Acetaminophen (Tylenol Tab) 650 mg Q6H PRN PO .PAIN 1-3 OR TEMP Last administered on 01/03/19 11:17; Admin Dose 650 MG; Start 12/31/18 at 18:30 Acetaminophen/ Hydrocodone Bitart ([place] (5/325)) 1 tab Q6H PRN PO .MOD PAIN 4- 6 Last administered on 01/17/19 20:05; Admin Dose 1 TAB; Start 12/31/18 at 18:30 Docusate Sodium (Colace) 100 mg Q12H PRN PO .CONSTIPATION Last administered on 01/17/19 20:04; Admin Dose 100 MG; Start 12/31/18 at 18:30 Magnesium Hydroxide (Milk Of Mag) 30 ml DAILY PRN PO .CONSTIPATION Last administered on 01/18/19 09:14; Admin Dose 30 ML; Start 12/31/18 at 18:30 Albuterol/ Ipratropium (Duoneb) 3 ml Q4H RESP THERAPY PRN HHN SHORTNESS OF BREATH Last administered on 01/09/19 19:19; Admin Dose 3 ML; Start 12/31/18 at 18:30 Hydralazine HCl (Apresoline) 10 mg Q6H PRN IV ELEVATED BLOOD PRESSURE; Start 12/31/18 at 18:30 Nitroglycerin (Nitroglycerin (Sl Tab) 0.4 Mg) 1 tab Q5M PRN SL ANGINA; Start 12/31/18 at 18:30 Guaifenesin (Robitussin Liquid Cup) 200 mg Q4H PRN PO COUGH Last administered on 01/19/19 02:45; Admin Dose 200 MG; Start 01/01/19 at 11:30 Ibuprofen (Motrin) 600 mg Q6H PRN PO MILD PAIN LEVEL 1-3 Last administered on 01/15/19 05:34; Admin Dose 600 MG; Start 01/01/19 at 17:30 Phenol (Cepastat Lozenge) 1 lozenge Q1H PRN MT COUGH Last administered on 01/17/19 22:16; Admin Dose 1 LOZENGE; Start 01/02/19 at 12:30 Famotidine (Pepcid) 20 mg DAILY PO Last administered on 01/19/19 08:18; Admin Dose 20 MG; Start 01/03/19 at 09:00 Levofloxacin (Levaquin) 750 mg DAILY@06 PO Last administered on 01/19/19 05:51; Admin Dose 750 MG; Start 01/08/19 at 06:00 Morphine Sulfate (morphine) 6 mg Q4H PRN PO SEVERE PAIN LEVEL 7-10 Last administered on 01/19/19 08:19; Admin Dose 6 MG; Start 01/07/19 at 23:30 Ceftriaxone Sodium 50 ml @ 100 mls/hr Q24H IVPB Last administered on 01/18/19 13:35; Admin Dose 100 MLS/HR; Start 01/09/19 at 13:00 Levalbuterol (Xopenex Neb) 0.63 mg Q4H RESP THERAPY HHN Last administered on 01/19/19 09:41; Admin Dose 0.63 MG; Start 01/10/19 at 01:00 Voriconazole (Vfend) 200 mg BID PO Last administered on 01/19/19 08:30; Admin Dose 200 MG; Start 01/11/19 at 13:00 ROWAN OVALLE Jan 19, 2019 12:26
--- NOTE | 2019-01-19 13:11 | CONS ---
Consult Date/Type/Reason Admit Date/Time Dec 31, 2018 at 18:14 Initial Consult Date Type of Consultation: Pulm Requesting Provider: ALEX CLARKE MD Date/Time of Note DATE: 01/19/19 TIME: 13:08 Subjective No events. No notable hemoptysis overnight. Objective Vitals Vital Signs Date Temp Pulse Resp B/P (MAP) Pulse Ox O2 O2 Flow FiO2 Time Delivery Rate 01/19/19 98.4 95 16 128/83 95 07:38 (98) 01/19/19 Nasal 2.0 02:08 Cannula 01/15/19 08:50 Intake and Output 01/18/19 01/18/19 01/19/19 1515:00 23:00 07:00 IntakeIntake Total 770 ml 700 ml 300 ml OutputOutput Total 2900 ml 1500 ml 2450 ml BalanceBalance -2130 ml -800 ml -2150 ml Exam HEENT: Neck supple; no JVD; no LAD CVS: RRR, S1 and S2 CHEST: Coarse BS b/l ABD: Soft, NT, + BS EXT: No c/c/e Results/Medications Result Diagram: 01/18/1951701/18/19517 Home Meds Reported Medications Aspirin* (Aspirin* EC) 81 Mg Tablet.dr, 81 MG PO DAILY, TAB TAKE 2 OR 3 TIMES A DAY 04/27/18 Medications Current Medications IV Flush (NS 3 ml) 3 ml PER PROTOCOL IV ; Start 12/31/18 at 18:30 Ondansetron HCl (Zofran Inj) 4 mg Q6H PRN IV NAUSEA/VOMITING Last administered on 01/19/19at 08:15; Admin Dose 4 MG; Start 12/31/18 at 18:30 Acetaminophen (Tylenol Tab) 650 mg Q6H PRN PO .PAIN 1-3 OR TEMP Last admini stered on 01/03/19at 11:17; Admin Dose 650 MG; Start 12/31/18 at 18:30 Acetaminophen/ Hydrocodone Bitart ([place] (5/325)) 1 tab Q6H PRN PO .MOD PAIN 4- 6 Last administered on 01/17/19at 20:05; Admin Dose 1 TAB; Start 12/31/18 at 18:30 Docusate Sodium (Colace) 100 mg Q12H PRN PO .CONSTIPATION Last administered on 01/17/19 20:04; Admin Dose 100 MG; Start 12/31/18 at 18:30 Magnesium Hydroxide (Milk Of Mag) 30 ml DAILY PRN PO .CONSTIPATION Last administered on 01/18/19 09:14; Admin Dose 30 ML; Start 12/31/18 at 18:30 Albuterol/ Ipratropium (Duoneb) 3 ml Q4H RESP THERAPY PRN HHN SHORTNESS OF BREATH Last administered on 01/09/19 19:19; Admin Dose 3 ML; Start 12/31/18 at 18:30 Hydralazine HCl (Apresoline) 10 mg Q6H PRN IV ELEVATED BLOOD PRESSURE; Start 12/31/18 at 18:30 Nitroglycerin (Nitroglycerin (Sl Tab) 0.4 Mg) 1 tab Q5M PRN SL ANGINA; Start 12/31/18 at 18:30 Guaifenesin (Robitussin Liquid Cup) 200 mg Q4H PRN PO COUGH Last administered on 01/19/19 02:45; Admin Dose 200 MG; Start 01/01/19 at 11:30 Ibuprofen (Motrin) 600 mg Q6H PRN PO MILD PAIN LEVEL 1-3 Last administered on 01/15/19 05:34; Admin Dose 600 MG; Start 01/01/19 at 17:30 Phenol (Cepastat Lozenge) 1 lozenge Q1H PRN MT COUGH Last administered on 01/17/19 22:16; Admin Dose 1 LOZENGE; Start 01/02/19 at 12:30 Famotidine (Pepcid) 20 mg DAILY PO Last administered on 01/19/19 08:18; Admin Dose 20 MG; Start 01/03/19 at 09:00 Levofloxacin (Levaquin) 750 mg DAILY@06 PO Last administered on 01/19/19 05:51; Admin Dose 750 MG; Start 01/08/19 at 06:00 Morphine Sulfate (morphine) 6 mg Q4H PRN PO SEVERE PAIN LEVEL 7-10 Last administered on 01/19/19 08:19; Admin Dose 6 MG; Start 01/07/19 at 23:30 Ceftriaxone Sodium 50 ml @ 100 mls/hr Q24H IVPB Last administered on 01/18/19 13:35; Admin Dose 100 MLS/HR; Start 01/09/19 at 13:00 Levalbuterol (Xopenex Neb) 0.63 mg Q4H RESP THERAPY HHN Last administered on 01/19/19at 09:41; Admin Dose 0.63 MG; Start 01/10/19 at 01:00 Voriconazole (Vfend) 200 mg BID PO Last administered on 01/19/19at 08:30; Admin Dose 200 MG; Start 01/11/19 at 13:00 Assessment/Plan Assessment/Plan (Daily) IMP: 1. Acute PE 2. Septic Pulmonary Emboli RECS: 1. Follow all hemoptysis and quantify 2. IVC filter placed 3. Abx per ID MILO DONG MD Jan 19, 2019 13:11
[2019-01-19] MEDS: CEFTRIAXONE 1 GM/50 ML (PMX) 50 ML IVPB SCH (13:24)
[2019-01-19] MEDS: DOCUSATE SODIUM 100 MG CAP PO PRN (13:34)
[2019-01-19] MEDS: HYDROCODONE/APAP (5/325) TAB PO PRN (13:34)
--- NOTE | 2019-01-19 13:57 | CONS ---
Assessment/Plan Assessment/Plan Hospital Course (Demo Recall) ID PROGRESS NOTE CURRENT ABX: DAY # Levaquin, Rocephin, Vfend. s/p Azith + Cefepime 01/18/19 0518 01/18/19 0518 24H INTERVAL SUMMARY POD#2-> s/p IVC Filter placement 01/17/19 * A/A/O -- feeling better, "breathing is better" -- supplemental O2 via NC * VSS, no fevers, NAD, no complaints DIAGNOSTIC IMAGING * Chest x-ray on admission revealed focal left lower lobe infiltrate. Mild right midlung atelectasis. * 2D ECHO 01/02/19) Conclusions: Normal left ventricular systolic function. Normal left ventricular cavity size. Mild concentric left ventricular hypertrophy. Ejection fraction is visually estimated at 55-60 %. Tissue Doppler/Mitral Doppler indices are consistent with impaired relaxation (Stage I diastolic dysfunction). Mild enlargement of right ventricle. Mild right ventricular hypokinesis. There is severe enlargement of right atrium. Mild mitral annular calcification. Trace mitral regurgitation. No significant aortic stenosis or insufficiency. Aortic cusps appear mildly calcified. s/p Tricuspid valve replacement. TV vmax 2.84cm. Max PG 32mmHg. Mean PG 19 mmHg. Estimated peak PA systolic pressure 45 mmHg. There is moderate tricuspid regurgitation. MICRO/OTHER * Microbiology: Blood culture on admission grew Corynebacterium species. Repeat blood cultures on January 01 and January 11 negative * HIV serology negative. Crypto neg * SPUTUM CX: RESPIRATORY CULTURE Preliminary Organism 1 NORMAL RESPIRATORY ASHLEY QUANTITY 1+ * (-) MRSA nares * Blood cultures + Organism 1 CORYNEBACTERIUM SPECIES CORYN SPS Zone Size RX --------- --- * AMPICILLIN S * CEFAZOLIN S * CEFOTAXIME S * CEFUROXIME S * CIPROFLOXACIN R * CLINDAMYCIN S * ERYTHROMYCIN S * PENICILLIN S * VANCOMYCIN S PHYSICAL EXAMINATION: GENERAL: VSS HEENT: AT, NC, anicteric NECK: Supple, CHEST: Equal chest rise bilaterally, without dyspnea on observation -- midline sternotomy incision healed HEART: Pulse RRR ABDOMEN: Soft / NT EXTREMITIES: Warm, dry SKIN: No rash, no diaphoresis -- multiple tattoos ID ASSESSMENT 28 yo M admit with: 1. S/p sepsis present on admission, resolving 2. Community-acquired pneumonia with repeat CT notes multiple thin-walled cavities dense infiltrates and possible mycetoma. 3. Hemoptysis/PE 4. History of endocarditis==> MADINA indeterminate for vegetations on tricuspid valve 5. IV drug abuse 6. Coronary artery disease with a history of tricuspid valve replacement and permanent pacemaker placement 6. Bacteremia (-)MRSA Nares ABX ALLERGIES: KNDA INVASIVES: PIV CURRENT ABX: DAY #Levaquin, Rocephin, Vfend. s/p Azith + Cefepime ID RECOMMENDATIONS/PLAN: 1. Continue current ABX 2. DC PLANNING: anticipate dc on Rocephin and Vfend for 4 more weeks, f/u cocci and Aspergillus serology, if negative no need for Vfend . Consultation Date/Type/Reason Admit Date/Time Dec 31, 2018 at 18:14 Initial Consult Date Requesting Provider: ALEX CLARKE MD Date/Time of Note DATE: 01/19/19 TIME: 13:55 Exam/Review of Systems Exam Vitals Vital Signs Date Temp Pulse Resp B/P (MAP) Pulse Ox O2 O2 Flow FiO2 Time Delivery Rate 01/19/19 2.0 13:50 01/19/19 78 16 96 Nasal 13:50 Cannula 01/19/19 98.4 128/83 07:38 (98) 01/15/19 21 08:50 Intake and Output 01/18/19 01/18/19 01/19/19 1515:00 23:00 07:00 IntakeIntake Total 770 ml 700 ml 300 ml OutputOutput Total 2900 ml 1500 ml 2450 ml BalanceBalance -2130 ml -800 ml -2150 ml Results Result Diagram: 01/18/1918 01/18/19517 Medications Medication Current Medications IV Flush (NS 3 ml) 3 ml PER PROTOCOL IV ; Start 12/31/18 at 18:30 Ondansetron HCl (Zofran Inj) 4 mg Q6H PRN IV NAUSEA/VOMITING Last administered on 01/19/19at 08:15; Admin Dose 4 MG; Start 12/31/18 at 18:30 Acetaminophen (Tylenol Tab) 650 mg Q6H PRN PO .PAIN 1-3 OR TEMP Last administered on 01/03/19at 11:17; Admin Dose 650 MG; Start 12/31/18 at 18:30 Acetaminophen/ Hydrocodone Bitart ([place] (5/325)) 1 tab Q6H PRN PO .MOD PAIN 4- 6 Last administered on 01/19/19 13:34; Admin Dose 1 TAB; Start 12/31/18 at 18:30 Docusate Sodium (Colace) 100 mg Q12H PRN PO .CONSTIPATION Last administered on 01/19/19 13:34; Admin Dose 100 MG; Start 12/31/18 at 18:30 Magnesium Hydroxide (Milk Of Mag) 30 ml DAILY PRN PO .CONSTIPATION Last administered on 01/18/19 09:14; Admin Dose 30 ML; Start 12/31/18 at 18:30 Albuterol/ Ipratropium (Duoneb) 3 ml Q4H RESP THERAPY PRN HHN SHORTNESS OF BREATH Last administered on 01/09/19 19:19; Admin Dose 3 ML; Start 12/31/18 at 18:30 Hydralazine HCl (Apresoline) 10 mg Q6H PRN IV ELEVATED BLOOD PRESSURE; Start 12/31/18 at 18:30 Nitroglycerin (Nitroglycerin (Sl Tab) 0.4 Mg) 1 tab Q5M PRN SL ANGINA; Start 12/31/18 at 18:30 Guaifenesin (Robitussin Liquid Cup) 200 mg Q4H PRN PO COUGH Last administered on 01/19/19 13:34; Admin Dose 200 MG; Start 01/01/19 at 11:30 Ibuprofen (Motrin) 600 mg Q6H PRN PO MILD PAIN LEVEL 1-3 Last administered on 01/15/19 05:34; Admin Dose 600 MG; Start 01/01/19 at 17:30 Phenol (Cepastat Lozenge) 1 lozenge Q1H PRN MT COUGH Last administered on 01/17/19 22:16; Admin Dose 1 LOZENGE; Start 01/02/19 at 12:30 Famotidine (Pepcid) 20 mg DAILY PO Last administered on 01/19/19 08:18; Admin Dose 20 MG; Start 01/03/19 at 09:00 Levofloxacin (Levaquin) 750 mg DAILY@06 PO Last administered on 01/19/19 05:51; Admin Dose 750 MG; Start 01/08/19 at 06:00 Morphine Sulfate (morphine) 6 mg Q4H PRN PO SEVERE PAIN LEVEL 7-10 Last administered on 01/19/19 08:19; Admin Dose 6 MG; Start 01/07/19 at 23:30 Ceftriaxone Sodium 50 ml @ 100 mls/hr Q24H IVPB Last administered on 01/19/19 13:24; Admin Dose 100 MLS/HR; Start 01/09/19 at 13:00 Levalbuterol (Xopenex Neb) 0.63 mg Q4H RESP THERAPY HHN Last administered on 01/19/19 13:48; Admin Dose 0.63 MG; Start 01/10/19 at 01:00 Voriconazole (Vfend) 200 mg BID PO Last administered on 01/19/19 08:30; Admin Dose 200 MG; Start 01/11/19 at 13:00 EMILIE BAUTISTA NP Jan 19, 2019 13:57
[2019-01-19 13:58] VITALS: BP 112/69; PULSE 89; RESP 16
[2019-01-19 20:35] VITALS: BP 101/65; PULSE 74; RESP 16
[2019-01-20] MEDS: morphine LIQ (10 MG/5 ML) CUP PO PRN ×3 (01:33→15:13)
[2019-01-20] MEDS: DOCUSATE SODIUM 100 MG CAP PO PRN (01:33)
[2019-01-20] MEDS: LEVALBUTEROL (NEB) 0.63 MG/3 ML AMP HHN SCH ×6 (01:47→21:25)
[2019-01-20 02:13] VITALS: BP 118/76; PULSE 80; RESP 16
[2019-01-20] MEDS: LEVOFLOXACIN 750 MG TABLET PO SCH (05:37)
[2019-01-20] MEDS: GUAIFENESIN 20 MG/ML 5ML CUP PO PRN ×3 (05:38→20:54)
[2019-01-20] MEDS: MAGNESIUM HYDROXIDE 30ML CUP PO PRN (05:41)
[2019-01-20 07:24] VITALS: BP 148/83; PULSE 89; RESP 20
[2019-01-20] MEDS: VORICONAZOLE 200 MG TAB PO SCH ×2 (09:05→20:51)
[2019-01-20] MEDS: FAMOTIDINE 20 MG TAB PO SCH (09:05)
[2019-01-20] MEDS: CEFTRIAXONE 1 GM/50 ML (PMX) 50 ML IVPB SCH (13:05)
--- NOTE | 2019-01-20 13:54 | CONS ---
Assessment/Plan Assessment/Plan Hospital Course (Demo Recall) Alert, feel ggod, no fevers Microbiology: Blood culture on admission grew Corynebacterium species. Repeat blood cultures on January 01 and January 11 negative HIV serology negative. Antimicrobials: Levaquin, Rocephin, Vfend. Assessment: 1. S/p sepsis present on admission, resolving 2. Community-acquired pneumonia with repeat CT notes multiple thin-walled cavities dense infiltrates and possible mycetoma. 3. Hemoptysis 4. History of endocarditis==> MADINA indeterminate for vegetations on tricuspid valve 5. IV drug abuse 6. Coronary artery disease with a history of tricuspid valve replacement and permanent pacemaker placement 6. Bacteremia cw contaminant Plan: Stable, s/p IVC filter, dc plan Consultation Date/Type/Reason Admit Date/Time Dec 31, 2018 at 18:14 Initial Consult Date Type of Consult id Requesting Provider: ALEX CLARKE MD Date/Time of Note DATE: 01/20/19 TIME: 13:53 Exam/Review of Systems Exam Vitals Vital Signs Date Temp Pulse Resp B/P (MAP) Pulse Ox O2 O2 Flow FiO2 Time Delivery Rate 01/20/19 95 18 93 Nasal 2.0 13:17 Cannula 01/20/19 98.1 148/83 07:24 (104) Intake and Output 01/19/19 01/19/19 01/20/19 1515:00 23:00 07:00 IntakeIntake Total 1010 ml 960 ml 1840 ml OutputOutput Total 2400 ml 2420 ml 1900 ml BalanceBalance -1390 ml -1460 ml -60 ml Results Result Diagram: 01/18/1951701/18/19517 Results 24hrs Laboratory Tests Test 01/20/19 09:46 Lab Scanned Report REFERENCE LAB Medications Medication Current Medications IV Flush (NS 3 ml) 3 ml PER PROTOCOL IV ; Start 12/31/18 at 18:30 Ondansetron HCl (Zofran Inj) 4 mg Q6H PRN IV NAUSEA/VOMITING Last administered on 01/19/19at 08:15; Admin Dose 4 MG; Start 12/31/18 at 18:30 Acetaminophen (Tylenol Tab) 650 mg Q6H PRN PO .PAIN 1-3 OR TEMP Last administered on 01/03/19at 11:17; Admin Dose 650 MG; Start 12/31/18 at 18:30 Acetaminophen/ Hydrocodone Bitart ([place] (5/325)) 1 tab Q6H PRN PO .MOD PAIN 4- 6 Last administered on 01/19/19 13:34; Admin Dose 1 TAB; Start 12/31/18 at 18:30 Docusate Sodium (Colace) 100 mg Q12H PRN PO .CONSTIPATION Last administered on 01/20/19 01:33; Admin Dose 100 MG; Start 12/31/18 at 18:30 Magnesium Hydroxide (Milk Of Mag) 30 ml DAILY PRN PO .CONSTIPATION Last administered on 01/20/19 05:41; Admin Dose 30 ML; Start 12/31/18 at 18:30 Albuterol/ Ipratropium (Duoneb) 3 ml Q4H RESP THERAPY PRN HHN SHORTNESS OF BREATH Last administered on 01/09/19 19:19; Admin Dose 3 ML; Start 12/31/18 at 18:30 Hydralazine HCl (Apresoline) 10 mg Q6H PRN IV ELEVATED BLOOD PRESSURE; Start 12/31/18 at 18:30 Nitroglycerin (Nitroglycerin (Sl Tab) 0.4 Mg) 1 tab Q5M PRN SL ANGINA; Start 12/31/18 at 18:30 Guaifenesin (Robitussin Liquid Cup) 200 mg Q4H PRN PO COUGH Last administered on 01/20/19 05:38; Admin Dose 200 MG; Start 01/01/19 at 11:30 Ibuprofen (Motrin) 600 mg Q6H PRN PO MILD PAIN LEVEL 1-3 Last administered on 01/15/19 05:34; Admin Dose 600 MG; Start 01/01/19 at 17:30 Phenol (Cepastat Lozenge) 1 lozenge Q1H PRN MT COUGH Last administered on 01/17/19 22:16; Admin Dose 1 LOZENGE; Start 01/02/19 at 12:30 Famotidine (Pepcid) 20 mg DAILY PO Last administered on 01/20/19 09:05; Admin Dose 20 MG; Start 01/03/19 at 09:00 Levofloxacin (Levaquin) 750 mg DAILY@06 PO Last administered on 01/20/19 05:37; Admin Dose 750 MG; Start 01/08/19 at 06:00 Morphine Sulfate (morphine) 6 mg Q4H PRN PO SEVERE PAIN LEVEL 7-10 Last administered on 01/20/19 05:38; Admin Dose 6 MG; Start 01/07/19 at 23:30 Ceftriaxone Sodium 50 ml @ 100 mls/hr Q24H IVPB Last administered on 01/20/19 13:05; Admin Dose 100 MLS/HR; Start 01/09/19 at 13:00 Levalbuterol (Xopenex Neb) 0.63 mg Q4H RESP THERAPY HHN Last administered on 01/20/19 13:07; Admin Dose 0.63 MG; Start 01/10/19 at 01:00 Voriconazole (Vfend) 200 mg BID PO Last administered on 01/20/19 09:05; Admin Dose 200 MG; Start 01/11/19 at 13:00 HAYLEE ENGLE NP Jan 20, 2019 13:54
[2019-01-20 14:32] VITALS: BP 141/90; PULSE 104; RESP 18
--- NOTE | 2019-01-20 14:32 | PN ---
Date/Time of Note Date/Time of Note DATE: 01/20/19 TIME: 14:26 Assessment/Plan VTE Prophylaxis Risk score (from Ns)>0 risk: 4 SCD applied (from Ns): Yes Pharmacological prophylaxis: other (per pulmonary, no anticoagulation) Lines/Catheters IV Catheter Type (from [facility]): Peripheral IV Urinary Cath still in place: No Assessment/Plan Assessment/Plan 28-year-old man coming in with productive cough, hemoptysis for last 7 to 10 days prior to admission, with signs of leukocytosis and pneumonia with a prior history of IV drug abuse, endocarditis, pacemaker and pulmonary embolism and tri cuspid valve repair. # Cough and hemoptysis # Hypoxia #Acute pulmonary embolism -The original CTA chest from January 02 does in fact show acute pulmonary emboli, along with cavitary lesions and possible septic emboli. - Repeat CTA chest 01/15 shows similar findings. - Lower extremity Doppler study performed negative for DVT. - Per Dr. Mcduffie, IVC filter placed on 01/17/19. Removal schedule per pulmonary. - Also per Dr. Mcduffie, hold off on therapeutic anticoagulation. # Pneumonia - ceftriaxone 01/09-present - Also pending crypto, cocci, aspergillus antibodies - On empiric voriconazole per ID. # Bacteremia- Blood cultures growing 2/2 bottles corynebacteria - MADINA indeterminate for vegetations on tricuspid valve. -For now, per ID continue Rocephin for 4 weeks for suspected endocarditis. 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 - Monitor for withdrawal, counseled on cessation. # History of prior pacemaker-monitor for now, continue current cardiac medications, follow cardiology recommendations # History of peptic ulcer disease - H2 sharona. Otherwise, no present issues. Result Diagram: 01/18/1918 01/18/19 0518 Subjective 24 Hr Interval Summary Free Text/Dictation No acute overnight events. He continues to have cough with slightly angela sputum. Exam/Review of Systems Exam Vitals Vital Signs Date Temp Pulse Resp B/P (MAP) Pulse Ox O2 O2 Flow FiO2 Time Delivery Rate 01/20/19 95 18 93 Nasal 2.0 13:17 Cannula 01/20/19 98.1 148/83 07:24 (104) Intake and Output 01/19/19 01/19/19 01/20/19 1515:00 23:00 07:00 IntakeIntake Total 1010 ml 960 ml 1840 ml OutputOutput Total 2400 ml 2420 ml 1900 ml BalanceBalance -1390 ml -1460 ml -60 ml Exam GENERAL: lying in bed, no acute distress HEENT: Pupils are equal, round, react to light. Extraocular muscles are intact. NECK: Supple. No thyromegaly. LUNGS: Distant breath sounds bilaterally. CARDIOVASCULAR: S1, S2 heard. No rubs or gallops. ABDOMEN: Soft, nontender, nondistended. Normal bowel sounds. No rebound or guarding. MUSCULOSKELETAL: No lower extremity edema bilaterally. Results Results 24hrs Laboratory Tests Test 01/20/19 09:46 Lab Scanned Report REFERENCE LAB Medications Medication Current Medications IV Flush (NS 3 ml) 3 ml PER PROTOCOL IV ; Start 12/31/18 at 18:30 Ondansetron HCl (Zofran Inj) 4 mg Q6H PRN IV NAUSEA/VOMITING Last administered on 01/19/19 08:15; Admin Dose 4 MG; Start 12/31/18 at 18:30 Acetaminophen (Tylenol Tab) 650 mg Q6H PRN PO .PAIN 1-3 OR TEMP Last administered on 01/03/19 11:17; Admin Dose 650 MG; Start 12/31/18 at 18:30 Acetaminophen/ Hydrocodone Bitart ([place] (5/325)) 1 tab Q6H PRN PO .MOD PAIN 4- 6 Last administered on 01/19/19 13:34; Admin Dose 1 TAB; Start 12/31/18 at 18:30 Docusate Sodium (Colace) 100 mg Q12H PRN PO .CONSTIPATION Last administered on 01/20/19 01:33; Admin Dose 100 MG; Start 12/31/18 at 18:30 Magnesium Hydroxide (Milk Of Mag) 30 ml DAILY PRN PO .CONSTIPATION Last admi nistered on 01/20/19 05:41; Admin Dose 30 ML; Start 12/31/18 at 18:30 Albuterol/ Ipratropium (Duoneb) 3 ml Q4H RESP THERAPY PRN HHN SHORTNESS OF BREATH Last administered on 01/09/19 19:19; Admin Dose 3 ML; Start 12/31/18 at 18:30 Hydralazine HCl (Apresoline) 10 mg Q6H PRN IV ELEVATED BLOOD PRESSURE; Start 12/31/18 at 18:30 Nitroglycerin (Nitroglycerin (Sl Tab) 0.4 Mg) 1 tab Q5M PRN SL ANGINA; Start 12/31/18 at 18:30 Guaifenesin (Robitussin Liquid Cup) 200 mg Q4H PRN PO COUGH Last administered on 01/20/19 05:38; Admin Dose 200 MG; Start 01/01/19 at 11:30 Ibuprofen (Motrin) 600 mg Q6H PRN PO MILD PAIN LEVEL 1-3 Last administered on 01/15/19 05:34; Admin Dose 600 MG; Start 01/01/19 at 17:30 Phenol (Cepastat Lozenge) 1 lozenge Q1H PRN MT COUGH Last administered on 01/17/19 22:16; Admin Dose 1 LOZENGE; Start 01/02/19 at 12:30 Famotidine (Pepcid) 20 mg DAILY PO Last administered on 01/20/19 09:05; Admin Dose 20 MG; Start 01/03/19 at 09:00 Levofloxacin (Levaquin) 750 mg DAILY@06 PO Last administered on 01/20/19 05:37; Admin Dose 750 MG; Start 01/08/19 at 06:00 Morphine Sulfate (morphine) 6 mg Q4H PRN PO SEVERE PAIN LEVEL 7-10 Last administered on 01/20/19 05:38; Admin Dose 6 MG; Start 01/07/19 at 23:30 Ceftriaxone Sodium 50 ml @ 100 mls/hr Q24H IVPB Last administered on 01/20/19 13:05; Admin Dose 100 MLS/HR; Start 01/09/19 at 13:00 Levalbuterol (Xopenex Neb) 0.63 mg Q4H RESP THERAPY HHN Last administered on 01/20/19 13:07; Admin Dose 0.63 MG; Start 01/10/19 at 01:00 Voriconazole (Vfend) 200 mg BID PO Last administered on 01/20/19 09:05; Admin Dose 200 MG; Start 01/11/19 at 13:00 ALEX CLARKE MD Jan 20, 2019 14:32
--- NOTE | 2019-01-20 16:22 | CONS ---
Assessment/Plan Assessment/Plan Hospital Course (Demo Recall) IMPRESSION: 1. Bacteremia, assess for intracardiac source of infection, rule out endocarditis.- s/p MADINA 01/08 with chronic prior changes of TVR and nonspecific findings associated with pacer leads. No definite findings of vegetations. bLD CX'S 01/01 remain negative to date 2. History of permanent pacemaker. 3. History of tricuspid valve repair. 4. History of IV drug abuse with ongoing drug usage and toxicology positive for amphetamines and cannabinoids. 5. History of peptic ulcer disease. 6. Cough and hemoptysis.- s/p chest CT with cavitary lesions 7. PE s/p IVC filter Recc: -tele -would f/u cx data as MADINA without definite findings of ongoing vegetations but with chronic changes -Contineu abx's and voriconazole after chest CT findings and follow-up cx data -Pulmonary following and ID -To be d/c'd on antifungals and antibiotics and will hold anticoagulation at this time Consultation Date/Type/Reason Admit Date/Time Dec 31, 2018 at 18:14 Initial Consult Date 01/08/19 Type of Consult Cardiology Reason for Consultation bacteremia Requesting Provider: ALEX CLARKE MD Date/Time of Note DATE: 01/20/19 TIME: 16:17 Exam/Review of Systems Vital Signs Vitals Vital Signs Date Temp Pulse Resp B/P (MAP) Pulse Ox O2 O2 Flow FiO2 Time Delivery Rate 01/20/19 99.9 104 18 141/90 100 Room Air 14:32 (107) 01/20/19 2.0 13:17 Intake and Output 01/19/19 01/19/19 01/20/19 1414:59 22:59 06:59 IntakeIntake Total 1010 ml 960 ml 1840 ml OutputOutput Total 2400 ml 2420 ml 1900 ml BalanceBalance -1390 ml -1460 ml -60 ml Exam Exam Review of Systems: CONSTITUTIONAL: No fevers, chills. PULMONARY: No sob CARDIOVASCULAR: No chest pain/palpitations GASTROINTESTINAL: No nausea/vomiting. GENITOURINARY: No hematuria/dysuria. MUSCULOSKELETAL: No myagias/arthalgias. PSYCHIATRIC: The patient denies depression. NEUROLOGIC: No weakness Constitutional: alert Psych: no complaints Head: normocephalic ENMT: mucosa pink and moist Neck: supple, jvd (9 cm water) Respiratory: diminished breath sounds (at bases/B) Cardiovascular: regular rate and rhythm Gastrointestinal: soft, non-tender Musculoskeletal: muscle tone (normal) Extremities: edema (none) Neurological: other (No focal defuici) Labs Result Diagram: 01/18/1951701/18/19517 Results 24hrs Laboratory Tests Test 01/20/19 09:46 Lab Scanned Report REFERENCE LAB Medications Medications Current Medications IV Flush (NS 3 ml) 3 ml PER PROTOCOL IV ; Start 12/31/18 at 18:30 Ondansetron HCl (Zofran Inj) 4 mg Q6H PRN IV NAUSEA/VOMITING Last administered on 01/19/19 08:15; Admin Dose 4 MG; Start 12/31/18 at 18:30 Acetaminophen (Tylenol Tab) 650 mg Q6H PRN PO .PAIN 1-3 OR TEMP Last adminis tered on 01/03/19at 11:17; Admin Dose 650 MG; Start 12/31/18 at 18:30 Acetaminophen/ Hydrocodone Bitart ([place] (5/325)) 1 tab Q6H PRN PO .MOD PAIN 4- 6 Last administered on 01/19/19at 13:34; Admin Dose 1 TAB; Start 12/31/18 at 18:30 Docusate Sodium (Colace) 100 mg Q12H PRN PO .CONSTIPATION Last administered on 01/20/19 01:33; Admin Dose 100 MG; Start 12/31/18 at 18:30 Magnesium Hydroxide (Milk Of Mag) 30 ml DAILY PRN PO .CONSTIPATION Last administered on 01/20/19 05:41; Admin Dose 30 ML; Start 12/31/18 at 18:30 Albuterol/ Ipratropium (Duoneb) 3 ml Q4H RESP THERAPY PRN HHN SHORTNESS OF BREATH Last administered on 01/09/19 19:19; Admin Dose 3 ML; Start 12/31/18 at 18:30 Hydralazine HCl (Apresoline) 10 mg Q6H PRN IV ELEVATED BLOOD PRESSURE; Start 12/31/18 at 18:30 Nitroglycerin (Nitroglycerin (Sl Tab) 0.4 Mg) 1 tab Q5M PRN SL ANGINA; Start 12/31/18 at 18:30 Guaifenesin (Robitussin Liquid Cup) 200 mg Q4H PRN PO COUGH Last administered on 01/20/19 15:12; Admin Dose 200 MG; Start 01/01/19 at 11:30 Ibuprofen (Motrin) 600 mg Q6H PRN PO MILD PAIN LEVEL 1-3 Last administered on 01/15/19 05:34; Admin Dose 600 MG; Start 01/01/19 at 17:30 Phenol (Cepastat Lozenge) 1 lozenge Q1H PRN MT COUGH Last administered on 01/17/19 22:16; Admin Dose 1 LOZENGE; Start 01/02/19 at 12:30 Famotidine (Pepcid) 20 mg DAILY PO Last administered on 01/20/19 09:05; Admin Dose 20 MG; Start 01/03/19 at 09:00 Levofloxacin (Levaquin) 750 mg DAILY@06 PO Last administered on 01/20/19 05:37; Admin Dose 750 MG; Start 01/08/19 at 06:00 Morphine Sulfate (morphine) 6 mg Q4H PRN PO SEVERE PAIN LEVEL 7-10 Last administered on 01/20/19 15:13; Admin Dose 6 MG; Start 01/07/19 at 23:30 Ceftriaxone Sodium 50 ml @ 100 mls/hr Q24H IVPB Last administered on 01/20/19 13:05; Admin Dose 100 MLS/HR; Start 01/09/19 at 13:00 Levalbuterol (Xopenex Neb) 0.63 mg Q4H RESP THERAPY HHN Last administered on 01/20/19 13:07; Admin Dose 0.63 MG; Start 01/10/19 at 01:00 Voriconazole (Vfend) 200 mg BID PO Last administered on 01/20/19 09:05; Admin Dose 200 MG; Start 01/11/19 at 13:00 ALEX TRAN 18, 2019 16:22
[2019-01-20 16:30] VITALS: PULSE 94
[2019-01-20 19:55] VITALS: BP 144/92; PULSE 98; RESP 16
[2019-01-20] MEDS: HYDROCODONE/APAP (5/325) TAB PO PRN (20:53)
[2019-01-21] MEDS: LEVALBUTEROL (NEB) 0.63 MG/3 ML AMP HHN SCH ×6 (00:37→21:23)
[2019-01-21 01:37] VITALS: BP 132/84; PULSE 100; RESP 16
[2019-01-21] MEDS: HYDROCODONE/APAP (5/325) TAB PO PRN (02:02)
[2019-01-21] MEDS: GUAIFENESIN 20 MG/ML 5ML CUP PO PRN (02:02)
[2019-01-21] MEDS: LEVOFLOXACIN 750 MG TABLET PO SCH (05:50)
[2019-01-21] MEDS: morphine LIQ (10 MG/5 ML) CUP PO PRN ×2 (05:51→13:02)
[2019-01-21 07:27] VITALS: BP 123/82; PULSE 88; RESP 20
[2019-01-21] MEDS: FAMOTIDINE 20 MG TAB PO SCH (08:23)
[2019-01-21] MEDS: VORICONAZOLE 200 MG TAB PO SCH ×2 (08:23→21:46)
[2019-01-21] MEDS: ONDANSETRON 4 MG INJ IV PRN ×2 (09:05→19:24)
--- NOTE | 2019-01-21 10:49 | CONS ---
Consult Date/Type/Reason Admit Date/Time Dec 31, 2018 at 18:14 Initial Consult Date Type of Consultation: Pulm Requesting Provider: ALEX CLARKE MD Date/Time of Note DATE: 01/21/19 TIME: 10:47 Subjective NO acute events - pt comfortable - no CP- con't anti-Bx. ROS: No fever, no chills, no nausea, no vomiting, no diarrhea/constipation + fatigue No recent weight changes No chest pain, no PND, no orthopnea No dizziness, blurred vision No thirst, no heat or cold intolerance Objective Vitals Vital Signs Date Temp Pulse Resp B/P (MAP) Pulse Ox O2 O2 Flow FiO2 Time Delivery Rate 01/21/19 96 16 95 Nasal 2.0 10:03 Cannula 01/21/19 97.6 123/82 07:27 (96) Intake and Output 01/20/19 01/20/19 01/21/19 1515:00 23:00 07:00 IntakeIntake Total 770 ml 360 ml 1600 ml OutputOutput Total 1000 ml 1000 ml 900 ml BalanceBalance -230 ml -640 ml 700 ml Exam General: WN/WD/NAD, AOx 3 HEENT: Unicetric/atraumatic/EOMI (follow commands) NECK: JVD elevated, no thyromegaly Lymph: no lymphadenopathy HEART: regular with no S3, II/ systolic murmur at apex, pacer LUNGS: Coarse sounds ABD: soft, NT, ND, +BS : Intact Neuro: non focal SKIN: chronic changes, tattoos EXT: trace edema Results/Medications Result Diagram: 01/18/1951701/18/19517 Home Meds Reported Medications Aspirin* (Aspirin* EC) 81 Mg Tablet.dr, 81 MG PO DAILY, TAB TAKE 2 OR 3 TIMES A DAY 04/27/18 Medications Current Medications IV Flush (NS 3 ml) 3 ml PER PROTOCOL IV ; Start 12/31/18 at 18:30 Ondansetron HCl (Zofran Inj) 4 mg Q6H PRN IV NAUSEA/VOMITING Last administered on 01/21/19at 09:05; Admin Dose 4 MG; Start 12/31/18 at 18:30 Acetaminophen (Tylenol Tab) 650 mg Q6H PRN PO .PAIN 1-3 OR TEMP Last administered on 01/03/19at 11:17; Admin Dose 650 MG; Start 12/31/18 at 18:30 Acetaminophen/ Hydrocodone Bitart ([place] (5/325)) 1 tab Q6H PRN PO .MOD PAIN 4- 6 Last administered on 01/21/19 02:02; Admin Dose 1 TAB; Start 12/31/18 at 18:30 Docusate Sodium (Colace) 100 mg Q12H PRN PO .CONSTIPATION Last administered on 01/20/19 01:33; Admin Dose 100 MG; Start 12/31/18 at 18:30 Magnesium Hydroxide (Milk Of Mag) 30 ml DAILY PRN PO .CONSTIPATION Last administered on 01/20/19 05:41; Admin Dose 30 ML; Start 12/31/18 at 18:30 Albuterol/ Ipratropium (Duoneb) 3 ml Q4H RESP THERAPY PRN HHN SHORTNESS OF BREATH Last administered on 01/09/19 19:19; Admin Dose 3 ML; Start 12/31/18 at 18:30 Hydralazine HCl (Apresoline) 10 mg Q6H PRN IV ELEVATED BLOOD PRESSURE; Start 12/31/18 at 18:30 Nitroglycerin (Nitroglycerin (Sl Tab) 0.4 Mg) 1 tab Q5M PRN SL ANGINA; Start 12/31/18 at 18:30 Guaifenesin (Robitussin Liquid Cup) 200 mg Q4H PRN PO COUGH Last administered on 01/21/19 02:02; Admin Dose 200 MG; Start 01/01/19 at 11:30 Ibuprofen (Motrin) 600 mg Q6H PRN PO MILD PAIN LEVEL 1-3 Last administered on 01/15/19 05:34; Admin Dose 600 MG; Start 01/01/19 at 17:30 Phenol (Cepastat Lozenge) 1 lozenge Q1H PRN MT COUGH Last administered on 01/17/19 22:16; Admin Dose 1 LOZENGE; Start 01/02/19 at 12:30 Famotidine (Pepcid) 20 mg DAILY PO Last administered on 01/21/19 08:23; Admin Dose 20 MG; Start 01/03/19 at 09:00 Levofloxacin (Levaquin) 750 mg DAILY@06 PO Last administered on 01/21/19 05:50; Admin Dose 750 MG; Start 01/08/19 at 06:00 Morphine Sulfate (morphine) 6 mg Q4H PRN PO SEVERE PAIN LEVEL 7-10 Last administered on 01/21/19 05:51; Admin Dose 6 MG; Start 01/07/19 at 23:30 Ceftriaxone Sodium 50 ml @ 100 mls/hr Q24H IVPB Last administered on 01/20/19 13:05; Admin Dose 100 MLS/HR; Start 01/09/19 at 13:00 Levalbuterol (Xopenex Neb) 0.63 mg Q4H RESP THERAPY HHN Last administered on 01/21/19 10:03; Admin Dose 0.63 MG; Start 01/10/19 at 01:00 Voriconazole (Vfend) 200 mg BID PO Last administered on 01/21/19 08:23; Admin Dose 200 MG; Start 01/11/19 at 13:00 Assessment/Plan Hospital Course (Demo Recall) 1. Bacteremia, assess for intracardiac source of infection, rule out endocarditis.- s/p MADINA 01/08 with chronic prior changes of TVR and nonspecific findings associated with pacer leads. No definite findings of vegetations. bLD CX'S 01/01 remain negative to date - defer to DR. Nicole for MADINA. Stable now. On anti-Bx - no feever now. 2. History of permanent pacemaker - site looks well-con't to follow. No evid ence of infection. Good fxn. 3. History of tricuspid valve repair - stable by exam. Con't to follow. 4. History of IV drug abuse with ongoing drug usage and toxicology positive for amphetamines and cannabinoids. D/C advised. 5. History of peptic ulcer disease.On PPI. 6. Cough and hemoptysis.- s/p chest CT with cavitary lesions and PE - pulmonary follows. On anti-bx LUIS SCOTT MD Jan 21, 2019 10:49
--- NOTE | 2019-01-21 11:27 | CONS ---
Assessment/Plan Assessment/Plan Assessment/Plan (Daily) Assessment and recommendations; 1. Patient admitted with bilateral pneumonia with likely septic embolism to lungs. Clinically and neurologically improving. Interval resolution of hemoptysis. 2. History of intravenous drug use. 3. History of tricuspid valve replacement. 4. Status post Hieu filter placement. Continue current supportive care. Antibiotics per ID recommendations. Consultation Date/Type/Reason Admit Date/Time Dec 31, 2018 at 18:14 Initial Consult Date Type of Consult Pulmonary Patient's condition is stable. Patient is ambulatory in the room. Complains of very minimal shortness of breath with exertion. Denies any further hemoptysis. General exam; young male, awake alert, currently in no distress. Requesting Provider: ALEX CLARKE MD Date/Time of Note DATE: 01/21/19 TIME: 11:26 24 HR Interval Summary Free Text/Dictation Patient's condition is stable. Remains awake and alert. Has remained hemodynamically stable. General exam; young male, awake alert, currently in no distress. Exam/Review of Systems Exam Vitals Vital Signs Date Temp Pulse Resp B/P (MAP) Pulse Ox O2 O2 Flow FiO2 Time Delivery Rate 01/21/19 96 16 95 Nasal 2.0 10:03 Cannula 01/21/19 97.6 123/82 07:27 (96) Intake and Output 01/20/19 01/20/19 01/21/19 1515:00 23:00 07:00 IntakeIntake Total 770 ml 360 ml 1600 ml OutputOutput Total 1000 ml 1000 ml 900 ml BalanceBalance -230 ml -640 ml 700 ml Exam H EENT exam; supple neck, no JVD. No lymphadenopathy. Midline trachea. No thyromegaly. Patient has fair dentition. No neck masses. Chest exam; clear to auscultation. S1-S2 audible, soft systolic ejection murmur. Regular rhythm. There is a well-healed sternal scar. Abdomen exam; soft, nontender. No organomegaly. Bowel sounds audible. Extremity exam; no peripheral edema. Patient does have multiple scars. [employer] exam; no focal deficit. Results Result Diagram: 01/18/1951701/18/19517 Medications Medication Current Medications IV Flush (NS 3 ml) 3 ml PER PROTOCOL IV ; Start 12/31/18 at 18:30 Ondansetron HCl (Zofran Inj) 4 mg Q6H PRN IV NAUSEA/VOMITING Last administered on 01/21/19 09:05; Admin Dose 4 MG; Start 12/31/18 at 18:30 Acetaminophen (Tylenol Tab) 650 mg Q6H PRN PO .PAIN 1-3 OR TEMP Last administered on 01/03/19 11:17; Admin Dose 650 MG; Start 12/31/18 at 18:30 Acetaminophen/ Hydrocodone Bitart ([place] (5/325)) 1 tab Q6H PRN PO .MOD PAIN 4- 6 Last administered on 01/21/19 02:02; Admin Dose 1 TAB; Start 12/31/18 at 18:30 Docusate Sodium (Colace) 100 mg Q12H PRN PO .CONSTIPATION Last administered on 01/20/19 01:33; Admin Dose 100 MG; Start 12/31/18 at 18:30 Magnesium Hydroxide (Milk Of Mag) 30 ml DAILY PRN PO .CONSTIPATION Last administered on 01/20/19 05:41; Admin Dose 30 ML; Start 12/31/18 at 18:30 Albuterol/ Ipratropium (Duoneb) 3 ml Q4H RESP THERAPY PRN HHN SHORTNESS OF BREATH Last administered on 01/09/19 19:19; Admin Dose 3 ML; Start 12/31/18 at 18:30 Hydralazine HCl (Apresoline) 10 mg Q6H PRN IV ELEVATED BLOOD PRESSURE; Start 12/31/18 at 18:30 Nitroglycerin (Nitroglycerin (Sl Tab) 0.4 Mg) 1 tab Q5M PRN SL ANGINA; Start 12/31/18 at 18:30 Guaifenesin (Robitussin Liquid Cup) 200 mg Q4H PRN PO COUGH Last administered on 01/21/19 02:02; Admin Dose 200 MG; Start 01/01/19 at 11:30 Ibuprofen (Motrin) 600 mg Q6H PRN PO MILD PAIN LEVEL 1-3 Last administered on 01/15/19 05:34; Admin Dose 600 MG; Start 01/01/19 at 17:30 Phenol (Cepastat Lozenge) 1 lozenge Q1H PRN MT COUGH Last administered on 01/17/19 22:16; Admin Dose 1 LOZENGE; Start 01/02/19 at 12:30 Famotidine (Pepcid) 20 mg DAILY PO Last administered on 01/21/19 08:23; Admin Dose 20 MG; Start 01/03/19 at 09:00 Levofloxacin (Levaquin) 750 mg DAILY@06 PO Last administered on 01/21/19 05:50; Admin Dose 750 MG; Start 01/08/19 at 06:00 Morphine Sulfate (morphine) 6 mg Q4H PRN PO SEVERE PAIN LEVEL 7-10 Last administered on 01/21/19 05:51; Admin Dose 6 MG; Start 01/07/19 at 23:30 Ceftriaxone Sodium 50 ml @ 100 mls/hr Q24H IVPB Last administered on 01/20/19 13:05; Admin Dose 100 MLS/HR; Start 01/09/19 at 13:00 Levalbuterol (Xopenex Neb) 0.63 mg Q4H RESP THERAPY HHN Last administered on 01/21/19 10:03; Admin Dose 0.63 MG; Start 01/10/19 at 01:00 Voriconazole (Vfend) 200 mg BID PO Last administered on 01/21/19 08:23; Admin Dose 200 MG; Start 01/11/19 at 13:00 CARLOS TRIVEDI 19, 2019 11:27
--- NOTE | 2019-01-21 13:25 | CONS ---
Assessment/Plan Assessment/Plan Hospital Course (Demo Recall) no events, sleeping, nad Microbiology: Blood culture on admission grew Corynebacterium species. Repeat blood cultures on January 01 and January 11 negative HIV serology negative. Antimicrobials: Levaquin, Rocephin, Vfend. Assessment: 1. S/p sepsis present on admission, resolving 2. Community-acquired pneumonia with repeat CT notes multiple thin-walled cavities dense infiltrates and possible mycetoma. 3. Hemoptysis 4. History of endocarditis==> per cardiology MADINA without definite findings of ongoing vegetations but with chronic changes 5. IV drug abuse 6. Coronary artery disease with a history of tricuspid valve replacement and permanent pacemaker placement 6. Bacteremia cw contaminant Plan: Stable, s/p IVC filter, continue abx, awaiting for final report for cocci, if negative consider dc on oral Levaquin and Doxycycline for [address] Alan Consultation Date/Type/Reason Admit Date/Time Dec 31, 2018 at 18:14 Initial Consult Date Type of Consult id Requesting Provider: ALEX CLARKE MD Date/Time of Note DATE: 01/21/19 TIME: 13:13 Exam/Review of Systems Exam Vitals Vital Signs Date Temp Pulse Resp B/P (MAP) Pulse Ox O2 O2 Flow FiO2 Time Delivery Rate 01/21/19 96 16 95 Nasal 2.0 10:03 Cannula 01/21/19 97.6 123/82 07:27 (96) Intake and Output 01/20/19 01/20/19 01/21/19 1515:00 23:00 07:00 IntakeIntake Total 770 ml 360 ml 1600 ml OutputOutput Total 1000 ml 1000 ml 900 ml BalanceBalance -230 ml -640 ml 700 ml Results Result Diagram: 01/18/1951701/18/19517 Medications Medication Current Medications IV Flush (NS 3 ml) 3 ml PER PROTOCOL IV ; Start 12/31/18 at 18:30 Ondansetron HCl (Zofran Inj) 4 mg Q6H PRN IV NAUSEA/VOMITING Last administered on 01/21/19at 09:05; Admin Dose 4 MG; Start 12/31/18 at 18:30 Acetaminophen (Tylenol Tab) 650 mg Q6H PRN PO .PAIN 1-3 OR TEMP Last administered on 01/03/19at 11:17; Admin Dose 650 MG; Start 12/31/18 at 18:30 Acetaminophen/ Hydrocodone Bitart ([place] (5/325)) 1 tab Q6H PRN PO .MOD PAIN 4- 6 Last administered on 01/21/19 02:02; Admin Dose 1 TAB; Start 12/31/18 at 18:30 Docusate Sodium (Colace) 100 mg Q12H PRN PO .CONSTIPATION Last administered on 01/20/19 01:33; Admin Dose 100 MG; Start 12/31/18 at 18:30 Magnesium Hydroxide (Milk Of Mag) 30 ml DAILY PRN PO .CONSTIPATION Last a dministered on 01/20/19 05:41; Admin Dose 30 ML; Start 12/31/18 at 18:30 Albuterol/ Ipratropium (Duoneb) 3 ml Q4H RESP THERAPY PRN HHN SHORTNESS OF BREATH Last administered on 01/09/19 19:19; Admin Dose 3 ML; Start 12/31/18 at 18:30 Hydralazine HCl (Apresoline) 10 mg Q6H PRN IV ELEVATED BLOOD PRESSURE; Start 12/31/18 at 18:30 Nitroglycerin (Nitroglycerin (Sl Tab) 0.4 Mg) 1 tab Q5M PRN SL ANGINA; Start 12/31/18 at 18:30 Guaifenesin (Robitussin Liquid Cup) 200 mg Q4H PRN PO COUGH Last administered on 01/21/19 02:02; Admin Dose 200 MG; Start 01/01/19 at 11:30 Ibuprofen (Motrin) 600 mg Q6H PRN PO MILD PAIN LEVEL 1-3 Last administered on 01/15/19 05:34; Admin Dose 600 MG; Start 01/01/19 at 17:30 Phenol (Cepastat Lozenge) 1 lozenge Q1H PRN MT COUGH Last administered on 01/17/19 22:16; Admin Dose 1 LOZENGE; Start 01/02/19 at 12:30 Famotidine (Pepcid) 20 mg DAILY PO Last administered on 01/21/19 08:23; Admin Dose 20 MG; Start 01/03/19 at 09:00 Levofloxacin (Levaquin) 750 mg DAILY@06 PO Last administered on 01/21/19 05:50; Admin Dose 750 MG; Start 01/08/19 at 06:00 Morphine Sulfate (morphine) 6 mg Q4H PRN PO SEVERE PAIN LEVEL 7-10 Last administered on 01/21/19 13:02; Admin Dose 6 MG; Start 01/07/19 at 23:30 Ceftriaxone Sodium 50 ml @ 100 mls/hr Q24H IVPB Last administered on 01/20/19 13:05; Admin Dose 100 MLS/HR; Start 01/09/19 at 13:00 Levalbuterol (Xopenex Neb) 0.63 mg Q4H RESP THERAPY HHN Last administered on 01/21/19 10:03; Admin Dose 0.63 MG; Start 01/10/19 at 01:00 Voriconazole (Vfend) 200 mg BID PO Last administered on 01/21/19 08:23; Admin Dose 200 MG; Start 01/11/19 at 13:00 HAYLEE ENGLE NP Jan 21, 2019 13:24
[2019-01-21] MEDS: CEFTRIAXONE 1 GM/50 ML (PMX) 50 ML IVPB SCH (13:48)
[2019-01-21 14:05] VITALS: BP 126/80; PULSE 94; RESP 20
[2019-01-21] MEDS ORDERED: HEPARIN 1000 UNITS/ML 10 ML INJ IV PRN (14:30)
[2019-01-21] MEDS ORDERED: HEPARIN 1000 UNITS/ML 10 ML INJ IV ONE (14:30)
--- NOTE | 2019-01-21 15:23 | PN ---
Date/Time of Note Date/Time of Note DATE: 01/21/19 TIME: 15:22 Assessment/Plan VTE Prophylaxis Risk score (from Ns)>0 risk: 3 SCD applied (from Ns): Yes Pharmacological prophylaxis: heparin Lines/Catheters IV [facility] Type [facility]from [facility] Saline Lock Urinary Cath still in place: No Assessment/Plan Assessment/Plan 28-year-old man coming in with productive cough, hemoptysis for last 7 to 10 days prior to admission, with signs of leukocytosis and pneumonia with a prior history of IV drug abuse, endocarditis, pacemaker and pulmonary embolism and tricuspid valve repair. # Cough and hemoptysis # Hypoxia #Acute pulmonary embolism -The original CTA chest from January 02 does in fact show acute pulmonary emboli, along with cavitary lesions and possible septic emboli. - Repeat CTA chest 01/15 shows similar findings. - Lower extremity Doppler study performed negative for DVT. - Per Dr. Mcduffie, IVC filter placed on 01/17/19. - Will start anticoagulation. Will do heparin gtt first; if no severe bleeding will switch to factor-Xa inhibitor. # Pneumonia - ceftriaxone 01/09-present - Also pending crypto, cocci, aspergillus antibodies - On empiric voriconazole per ID. # Bacteremia- Blood cultures growing 2/2 bottles corynebacteria - MADINA indeterminate for vegetations on tricuspid valve. -For now, per ID continue Rocephin for 4 weeks for suspected endocarditis. 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 - Monitor for withdrawal, counseled on cessation. # History of prior pacemaker-monitor for now, continue current cardiac medications, follow cardiology recommendations # History of peptic ulcer disease - H2 sharona. Otherwise, no present issues. Result Diagram: 01/18/19 0518 01/18/19 0518 Subjective 24 Hr Interval Summary Free Text/Dictation Patient reports feeling better. Requesting to go home. Reports hemoptysis is improved. Discussed benefits and risks of anticoagulation. Patient is agreeable. Exam/Review of Systems Exam Vitals Vital Signs Date Temp Pulse Resp B/P (MAP) Pulse Ox O2 O2 Flow FiO2 Time Delivery Rate 01/21/19 95 18 90 21 14:12 01/21/19 Nasal 2.0 10:03 Cannula 01/21/19 97.6 123/82 07:27 (96) Intake and Output 01/20/19 01/20/19 01/21/19 1515:00 23:00 07:00 IntakeIntake Total 770 ml 360 ml 1600 ml OutputOutput Total 1000 ml 1000 ml 900 ml BalanceBalance -230 ml -640 ml 700 ml Exam GENERAL: lying in bed, no acute distress HEENT: Pupils are equal, round, react to light. Extraocular muscles are intact. NECK: Supple. No thyromegaly. LUNGS: Distant breath sounds bilaterally. CARDIOVASCULAR: S1, S2 heard. No rubs or gallops. ABDOMEN: Soft, nontender, nondistended. Normal bowel sounds. No rebound or guarding. MUSCULOSKELETAL: No lower extremity edema bilaterally. Medications Medication Current Medications IV Flush (NS 3 ml) 3 ml PER PROTOCOL IV ; Start 12/31/18 at 18:30 Ondansetron HCl (Zofran Inj) 4 mg Q6H PRN IV NAUSEA/VOMITING Last administered on 01/21/19 09:05; Admin Dose 4 MG; Start 12/31/18 at 18:30 Acetaminophen (Tylenol Tab) 650 mg Q6H PRN PO .PAIN 1-3 OR TEMP Last administered on 01/03/19 11:17; Admin Dose 650 MG; Start 12/31/18 at 18:30 Acetaminophen/ Hydrocodone Bitart ([place] (5/325)) 1 tab Q6H PRN PO .MOD PAIN 4- 6 Last administered on 01/21/19 02:02; Admin Dose 1 TAB; Start 12/31/18 at 18:30 Docusate Sodium (Colace) 100 mg Q12H PRN PO .CONSTIPATION Last administered on 01/20/19 01:33; Admin Dose 100 MG; Start 12/31/18 at 18:30 Magnesium Hydroxide (Milk Of Mag) 30 ml DAILY PRN PO .CONSTIPATION Last administered on 01/20/19 05:41; Admin Dose 30 ML; Start 12/31/18 at 18:30 Albuterol/ Ipratropium (Duoneb) 3 ml Q4H RESP THERAPY PRN HHN SHORTNESS OF BREATH Last administered on 01/09/19 19:19; Admin Dose 3 ML; Start 12/31/18 at 18:30 Hydralazine HCl (Apresoline) 10 mg Q6H PRN IV ELEVATED BLOOD PRESSURE; Start 12/31/18 at 18:30 Nitroglycerin (Nitroglycerin (Sl Tab) 0.4 Mg) 1 tab Q5M PRN SL ANGINA; Start 12/31/18 at 18:30 Guaifenesin (Robitussin Liquid Cup) 200 mg Q4H PRN PO COUGH Last administered on 01/21/19 02:02; Admin Dose 200 MG; Start 01/01/19 at 11:30 Ibuprofen (Motrin) 600 mg Q6H PRN PO MILD PAIN LEVEL 1-3 Last administered on 01/15/19 05:34; Admin Dose 600 MG; Start 01/01/19 at 17:30 Phenol (Cepastat Lozenge) 1 lozenge Q1H PRN MT COUGH Last administered on 01/17/19 22:16; Admin Dose 1 LOZENGE; Start 01/02/19 at 12:30 Famotidine (Pepcid) 20 mg DAILY PO Last administered on 01/21/19 08:23; Admin Dose 20 MG; Start 01/03/19 at 09:00 Morphine Sulfate (morphine) 6 mg Q4H PRN PO SEVERE PAIN LEVEL 7-10 Last administered on 01/21/19 13:02; Admin Dose 6 MG; Start 01/07/19 at 23:30 Ceftriaxone Sodium 50 ml @ 100 mls/hr Q24H IVPB Last administered on 01/21/19 13:48; Admin Dose 100 MLS/HR; Start 01/09/19 at 13:00 Levalbuterol (Xopenex Neb) 0.63 mg Q4H RESP THERAPY HHN Last administered on 01/21/19 14:12; Admin Dose 0.63 MG; Start 01/10/19 at 01:00 Voriconazole (Vfend) 200 mg BID PO Last administered on 01/21/19 08:23; Admin Dose 200 MG; Start 01/11/19 at 13:00 Heparin Sodium (Porcine) (Heparin (1000 Units/ml)) 6,500 unit PER PROTOCOL PRN IV aPTT<47; Start 01/21/19 at 14:30 Heparin Sodium (Porcine) 250 ml @ 14.5 mls/hr PER PROTOCOL IV ; Start 01/21/19 at 14:30 ALEX CLARKE MD Jan 21, 2019 15:23
[2019-01-21] MEDS: HEPARIN 25000 UNITS/250 ML 250 ML IV SCH (15:59)
[2019-01-21 20:07] VITALS: BP 124/78; PULSE 88; RESP 16
[2019-01-22] MEDS: LEVALBUTEROL (NEB) 0.63 MG/3 ML AMP HHN SCH ×6 (01:38→21:26)
[2019-01-22 02:13] VITALS: BP 125/85; PULSE 101; RESP 18
[2019-01-22] MEDS: GUAIFENESIN 20 MG/ML 5ML CUP PO PRN (03:58)
[2019-01-22] MEDS: morphine LIQ (10 MG/5 ML) CUP PO PRN (06:17)
[2019-01-22 07:44] VITALS: BP 118/73; PULSE 98; RESP 18
[2019-01-22] MEDS: HEPARIN 25000 UNITS/250 ML 250 ML IV SCH (09:12)
[2019-01-22] MEDS: FAMOTIDINE 20 MG TAB PO SCH (09:24)
[2019-01-22] MEDS: VORICONAZOLE 200 MG TAB PO SCH ×2 (09:24→22:14)
[2019-01-22] MEDS: HYDROCODONE/APAP (5/325) TAB PO PRN (09:25)
[2019-01-22] MEDS: CEFTRIAXONE 1 GM/50 ML (PMX) 50 ML IVPB SCH (13:43)
--- NOTE | 2019-01-22 13:50 | CONS ---
Assessment/Plan Assessment/Plan Hospital Course (Demo Recall) IMPRESSION: 1. Bacteremia, assess for intracardiac source of infection, rule out endocarditis.- s/p MADINA 01/08 with chronic prior changes of TVR and nonspecific findings associated with pacer leads. No definite findings of vegetations. bLD CX'S 01/01 remain negative to date 2. History of permanent pacemaker. 3. History of tricuspid valve repair. 4. History of IV drug abuse with ongoing drug usage and toxicology positive for amphetamines and cannabinoids. 5. History of peptic ulcer disease. 6. Cough and hemoptysis.- s/p chest CT with cavitary lesions 7. PE s/p IVC filter Recc: -tele -would f/u cx data as MADINA without definite findings of ongoing vegetations but with chronic changes -Contineu abx's and voriconazole after chest CT findings and follow-up cx data -Pulmonary following and ID -Patient now s/p IVC filter and is being started on anticogulation?? Consultation Date/Type/Reason Admit Date/Time Dec 31, 2018 at 18:14 Initial Consult Date 01/08/19 Type of Consult Cardiology Reason for Consultation bacteremia Requesting Provider: ALEX CLARKE MD Date/Time of Note DATE: 01/22/19 TIME: 13:47 Exam/Review of Systems Vital Signs Vitals Vital Signs Date Temp Pulse Resp B/P (MAP) Pulse Ox O2 O2 Flow FiO2 Time Delivery Rate 01/22/19 99 20 97 Nasal 3.0 12:29 Cannula 01/22/19 98.4 118/73 07:44 (88) 01/21/19 21 14:12 Intake and Output 01/21/19 01/21/19 01/22/19 1515:00 23:00 07:00 IntakeIntake Total 1290 ml 1123.5 ml 930.5 ml OutputOutput Total 2750 ml 1700 ml 1050 ml BalanceBalance -1460 ml -576.5 ml -119.5 ml Exam Exam Review of Systems: CONSTITUTIONAL: No fevers, chills. PULMONARY: No sob CARDIOVASCULAR: No chest pain/palpitations GASTROINTESTINAL: No nausea/vomiting. GENITOURINARY: No hematuria/dysuria. MUSCULOSKELETAL: No myagias/arthalgias. PSYCHIATRIC: The patient denies depression. NEUROLOGIC: No weakness Constitutional: alert Psych: no complaints Head: normocephalic ENMT: mucosa pink and moist Neck: supple, jvd (9 cm water) Respiratory: diminished breath sounds Cardiovascular: regular rate and rhythm Gastrointestinal: soft, non-tender Musculoskeletal: muscle tone (notmal) Extremities: edema (none) Labs Result Diagram: 01/18/1951701/18/19517 Results 24hrs Laboratory Tests Test 01/21/19 15:04 01/21/19 20:12 01/22/19 03:02 01/22/19 10:03 Prothrombin Time 16.7 H Prothrombin Time 1.3 Ratio INR International 1.34 Normalized Ratio Activated 46.8 H 79.0 *H 59.2 H 65.9 H Partial Thromboplast Time Medications Medications Current Medications IV Flush (NS 3 ml) 3 ml PER PROTOCOL IV ; Start 12/31/18 at 18:30 Ondansetron HCl (Zofran Inj) 4 mg Q6H PRN IV NAUSEA/VOMITING Last administered on 01/21/19 19:24; Admin Dose 4 MG; Start 12/31/18 at 18:30 Acetaminophen (Tylenol Tab) 650 mg Q6H PRN PO .PAIN 1-3 OR TEMP Last administered on 01/03/19 11:17; Admin Dose 650 MG; Start 12/31/18 at 18:30 Acetaminophen/ Hydrocodone Bitart ([place] (5/325)) 1 tab Q6H PRN PO .MOD PAIN 4- 6 Last administered on 01/22/19 09:25; Admin Dose 1 TAB; Start 12/31/18 at 18:30 Docusate Sodium (Colace) 100 mg Q12H PRN PO .CONSTIPATION Last administered on 01/20/19 01:33; Admin Dose 100 MG; Start 12/31/18 at 18:30 Magnesium Hydroxide (Milk Of Mag) 30 ml DAILY PRN PO .CONSTIPATION Last administered on 01/20/19 05:41; Admin Dose 30 ML; Start 12/31/18 at 18:30 Albuterol/ Ipratropium (Duoneb) 3 ml Q4H RESP THERAPY PRN HHN SHORTNESS OF BREATH Last administered on 01/09/19 19:19; Admin Dose 3 ML; Start 12/31/18 at 18:30 Hydralazine HCl (Apresoline) 10 mg Q6H PRN IV ELEVATED BLOOD PRESSURE; Start 12/31/18 at 18:30 Nitroglycerin (Nitroglycerin (Sl Tab) 0.4 Mg) 1 tab Q5M PRN SL ANGINA; Start 12/31/18 at 18:30 Guaifenesin (Robitussin Liquid Cup) 200 mg Q4H PRN PO COUGH Last administered on 01/22/19 03:58; Admin Dose 200 MG; Start 01/01/19 at 11:30 Ibuprofen (Motrin) 600 mg Q6H PRN PO MILD PAIN LEVEL 1-3 Last administered on 01/15/19 05:34; Admin Dose 600 MG; Start 01/01/19 at 17:30 Phenol (Cepastat Lozenge) 1 lozenge Q1H PRN MT COUGH Last administered on 01/17/19 22:16; Admin Dose 1 LOZENGE; Start 01/02/19 at 12:30 Famotidine (Pepcid) 20 mg DAILY PO Last administered on 01/22/19 09:24; Admin Dose 20 MG; Start 01/03/19 at 09:00 Morphine Sulfate (morphine) 6 mg Q4H PRN PO SEVERE PAIN LEVEL 7-10 Last administered on 01/22/19 06:17; Admin Dose 6 MG; Start 01/07/19 at 23:30 Ceftriaxone Sodium 50 ml @ 100 mls/hr Q24H IVPB Last administered on 01/22/19 13:43; Admin Dose 100 MLS/HR; Start 01/09/19 at 13:00 Levalbuterol (Xopenex Neb) 0.63 mg Q4H RESP THERAPY HHN Last administered on 01/22/19 12:29; Admin Dose 0.63 MG; Start 01/10/19 at 01:00 Voriconazole (Vfend) 200 mg BID PO Last administered on 01/22/19 09:24; Admin Dose 200 MG; Start 01/11/19 at 13:00 Apixaban (Eliquis) 10 mg BID PO ; Start 01/22/19 at 21:00; Stop 01/28/19 at 23:00 ALEX TRAN 20, 2019 13:50
--- NOTE | 2019-01-22 14:12 | CONS ---
Assessment/Plan Assessment/Plan Hospital Course (Demo Recall) no events, awake, comfortable on RA Microbiology: Blood culture on admission grew Corynebacterium species. Repeat blood cultures on January 01 and January 11 negative HIV serology negative. Antimicrobials: Levaquin, Rocephin, Vfend. Assessment: 1. S/p sepsis present on admission, resolving 2. Community-acquired pneumonia with repeat CT notes multiple thin-walled cavities dense infiltrates and possible mycetoma. 3. Hemoptysis 4. History of endocarditis==> per cardiology MADINA without definite findings of ongoing vegetations but with chronic changes 5. IV drug abuse 6. Coronary artery disease with a history of tricuspid valve replacement and permanent pacemaker placement 6. Bacteremia cw contaminant Plan: Stable, spoke to lab yesterday, they supposed to fax report for cocci, if negative, will dc Vfend and dc on oral Levaquin and Doxycycline for 9 more days DW RN Consultation Date/Type/Reason Admit Date/Time Dec 31, 2018 at 18:14 Initial Consult Date Type of Consult id Requesting Provider: ALEX CLARKE MD Date/Time of Note DATE: 01/22/19 TIME: 14:10 Exam/Review of Systems Exam Vitals Vital Signs Date Temp Pulse Resp B/P (MAP) Pulse Ox O2 O2 Flow FiO2 Time Delivery Rate 01/22/19 99 20 97 Nasal 3.0 12:29 Cannula 01/22/19 98.4 118/73 07:44 (88) 01/21/19 21 14:12 Intake and Output 01/21/19 01/21/19 01/22/19 1515:00 23:00 07:00 IntakeIntake Total 1290 ml 1123.5 ml 930.5 ml OutputOutput Total 2750 ml 1700 ml 1050 ml BalanceBalance -1460 ml -576.5 ml -119.5 ml Results Result Diagram: 01/18/1918 01/18/19517 Results 24hrs Laboratory Tests Test 01/21/19 15:04 01/21/19 20:12 01/22/19 03:02 01/22/19 10:03 Prothrombin Time 16.7 H Prothrombin Time 1.3 Ratio INR International 1.34 Normalized Ratio Activated 46.8 H 79.0 *H 59.2 H 65.9 H Partial Thromboplast Time Medications Medication Current Medications IV Flush (NS 3 ml) 3 ml PER PROTOCOL IV ; Start 12/31/18 at 18:30 Ondansetron HCl (Zofran Inj) 4 mg Q6H PRN IV NAUSEA/VOMITING Last administered on 01/21/19 19:24; Admin Dose 4 MG; Start 12/31/18 at 18:30 Acetaminophen (Tylenol Tab) 650 mg Q6H PRN PO .PAIN 1-3 OR TEMP Last administered on 01/03/19 11:17; Admin Dose 650 MG; Start 12/31/18 at 18:30 Acetaminophen/ Hydrocodone Bitart ([place] (5/325)) 1 tab Q6H PRN PO .MOD PAIN 4- 6 Last administered on 01/22/19 09:25; Admin Dose 1 TAB; Start 12/31/18 at 18:30 Docusate Sodium (Colace) 100 mg Q12H PRN PO .CONSTIPATION Last administered on 01/20/19 01:33; Admin Dose 100 MG; Start 12/31/18 at 18:30 Magnesium Hydroxide (Milk Of Mag) 30 ml DAILY PRN PO .CONSTIPATION Last administered on 01/20/19 05:41; Admin Dose 30 ML; Start 12/31/18 at 18:30 Albuterol/ Ipratropium (Duoneb) 3 ml Q4H RESP THERAPY PRN HHN SHORTNESS OF BREATH Last administered on 01/09/19 19:19; Admin Dose 3 ML; Start 12/31/18 at 18:30 Hydralazine HCl (Apresoline) 10 mg Q6H PRN IV ELEVATED BLOOD PRESSURE; Start 12/31/18 at 18:30 Nitroglycerin (Nitroglycerin (Sl Tab) 0.4 Mg) 1 tab Q5M PRN SL ANGINA; Start 12/31/18 at 18:30 Guaifenesin (Robitussin Liquid Cup) 200 mg Q4H PRN PO COUGH Last administered on 01/22/19 03:58; Admin Dose 200 MG; Start 01/01/19 at 11:30 Ibuprofen (Motrin) 600 mg Q6H PRN PO MILD PAIN LEVEL 1-3 Last administered on 01/15/19 05:34; Admin Dose 600 MG; Start 01/01/19 at 17:30 Phenol (Cepastat Lozenge) 1 lozenge Q1H PRN MT COUGH Last administered on 01/17/19 22:16; Admin Dose 1 LOZENGE; Start 01/02/19 at 12:30 Famotidine (Pepcid) 20 mg DAILY PO Last administered on 01/22/19 09:24; Admin Dose 20 MG; Start 01/03/19 at 09:00 Morphine Sulfate (morphine) 6 mg Q4H PRN PO SEVERE PAIN LEVEL 7-10 Last administered on 01/22/19 06:17; Admin Dose 6 MG; Start 01/07/19 at 23:30 Ceftriaxone Sodium 50 ml @ 100 mls/hr Q24H IVPB Last administered on 01/22/19 13:43; Admin Dose 100 MLS/HR; Start 01/09/19 at 13:00 Levalbuterol (Xopenex Neb) 0.63 mg Q4H RESP THERAPY HHN Last administered on 01/22/19 12:29; Admin Dose 0.63 MG; Start 01/10/19 at 01:00 Voriconazole (Vfend) 200 mg BID PO Last administered on 01/22/19 09:24; Admin Dose 200 MG; Start 01/11/19 at 13:00 Apixaban (Eliquis) 10 mg BID PO ; Start 01/22/19 at 21:00; Stop 01/28/19 at 23:00 HAYLEE ENGLE NP Jan 22, 2019 14:12
[2019-01-22 14:54] VITALS: BP 127/76; PULSE 85; RESP 18
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
[2019-01-22 19:44] VITALS: BP 123/80; PULSE 92; RESP 18
[2019-01-22] MEDS: APIXABAN 5 MG TABLET PO SCH (22:15)
[2019-01-23] MEDS: LEVALBUTEROL (NEB) 0.63 MG/3 ML AMP HHN SCH ×6 (01:00→20:25)
[2019-01-23 01:12] VITALS: BP 103/65; PULSE 99; RESP 18
[2019-01-23 07:30] VITALS: BP 119/72; PULSE 84; RESP 18
[2019-01-23] MEDS: morphine LIQ (10 MG/5 ML) CUP PO PRN ×2 (09:13→23:24)
[2019-01-23] MEDS: VORICONAZOLE 200 MG TAB PO SCH (09:13)
[2019-01-23] MEDS: GUAIFENESIN 20 MG/ML 5ML CUP PO PRN (09:13)
[2019-01-23] MEDS: FAMOTIDINE 20 MG TAB PO SCH (09:13)
[2019-01-23] MEDS: APIXABAN 5 MG TABLET PO SCH ×2 (09:58→20:50)
--- NOTE | 2019-01-23 14:00 | CONS ---
Assessment/Plan Assessment/Plan Hospital Course (Demo Recall) no events, awake, comfortable on RA Microbiology: Blood culture on admission grew Corynebacterium species. Repeat blood cultures on January 01 and January 11 negative HIV serology negative. Antimicrobials: Levaquin, Vfend. Assessment: 1. S/p sepsis present on admission, resolving 2. Community-acquired pneumonia with repeat CT notes multiple thin-walled cavities dense infiltrates and possible mycetoma. 3. Hemoptysis 4. History of endocarditis==> per cardiology MADINA without definite findings of ongoing vegetations but with chronic changes 5. IV drug abuse 6. Coronary artery disease with a history of tricuspid valve replacement and permanent pacemaker placement 6. Bacteremia cw contaminant Plan: Stable, cocci negative, will dc Vfend. Ok Levaquin and Doxycycline Consultation Date/Type/Reason Admit Date/Time Dec 31, 2018 at 18:14 Initial Consult Date Type of Consult id Requesting Provider: ALEX CLARKE MD Date/Time of Note DATE: 01/23/19 TIME: 14:00 Exam/Review of Systems Exam Vitals Vital Signs Date Temp Pulse Resp B/P (MAP) Pulse Ox O2 O2 Flow FiO2 Time Delivery Rate 01/23/19 89 20 98 Nasal 2.0 13:01 Cannula 01/23/19 98.2 119/72 07:30 (88) 01/21/19 14:12 Intake and Output 01/22/19 01/22/19 01/23/19 1515:00 23:00 07:00 IntakeIntake Total 1768 ml 840 ml 300 ml OutputOutput Total 1900 ml 1250 ml 900 ml BalanceBalance -132 ml -410 ml -600 ml Results Result Diagram: 01/23/19 1108 01/23/19 1108 Results 24hrs Laboratory Tests Test 01/23/19 11:08 White Blood Count 6.2 Red Blood Count 3.66 L Hemoglobin 9.8 L Hematocrit 31.1 L Mean Corpuscular Volume 85.0 Mean Corpuscular Hemoglobin 26.8 L Mean Corpuscular Hemoglobin Concent 31.5 L Red Cell Distribution Width 15.5 H Platelet Count 227 # Mean Platelet Volume 9.3 Immature Granulocytes % 0.300 Neutrophils % 60.9 Lymphocytes % 21.1 Monocytes % 7.0 Eosinophils % 9.6 H Basophils % 1.1 Nucleated Red Blood Cells % 0.0 Immature Granulocytes # 0.020 Neutrophils # 3.8 Lymphocytes # 1.3 Monocytes # 0.4 Eosinophils # 0.6 H Basophils # 0.1 Nucleated Red Blood Cells # 0.0 Sodium Level 143 Potassium Level 3.9 Chloride Level 108 Carbon Dioxide Level 28 Anion Gap 7 Blood Urea Nitrogen 13 Creatinine 0.94 Est Glomerular Filtrat Rate mL/min > 60 Glucose Level 95 Calcium Level 9.0 Phosphorus Level 4.3 Magnesium Level 1.9 Medications Medication Current Medications IV Flush (NS 3 ml) 3 ml PER PROTOCOL IV ; Start 12/31/18 at 18:30 Ondansetron HCl (Zofran Inj) 4 mg Q6H PRN IV NAUSEA/VOMITING Last administered on 01/21/19 19:24; Admin Dose 4 MG; Start 12/31/18 at 18:30 Acetaminophen (Tylenol Tab) 650 mg Q6H PRN PO .PAIN 1-3 OR TEMP Last administered on 01/03/19 11:17; Admin Dose 650 MG; Start 12/31/18 at 18:30 Acetaminophen/ Hydrocodone Bitart ([place] (5/325)) 1 tab Q6H PRN PO .MOD PAIN 4- 6 Last administered on 01/22/19 09:25; Admin Dose 1 TAB; Start 12/31/18 at 18:30 Docusate Sodium (Colace) 100 mg Q12H PRN PO .CONSTIPATION Last administered on 01/20/19 01:33; Admin Dose 100 MG; Start 12/31/18 at 18:30 Magnesium Hydroxide (Milk Of Mag) 30 ml DAILY PRN PO .CONSTIPATION Last administered on 01/20/19 05:41; Admin Dose 30 ML; Start 12/31/18 at 18:30 Albuterol/ Ipratropium (Duoneb) 3 ml Q4H RESP THERAPY PRN HHN SHORTNESS OF BREATH Last administered on 01/09/19 19:19; Admin Dose 3 ML; Start 12/31/18 at 18:30 Hydralazine HCl (Apresoline) 10 mg Q6H PRN IV ELEVATED BLOOD PRESSURE; Start 12/31/18 at 18:30 Nitroglycerin (Nitroglycerin (Sl Tab) 0.4 Mg) 1 tab Q5M PRN SL ANGINA; Start 12/31/18 at 18:30 Guaifenesin (Robitussin Liquid Cup) 200 mg Q4H PRN PO COUGH Last administered on 01/23/19 09:13; Admin Dose 200 MG; Start 01/01/19 at 11:30 Ibuprofen (Motrin) 600 mg Q6H PRN PO MILD PAIN LEVEL 1-3 Last administered on 01/15/19 05:34; Admin Dose 600 MG; Start 01/01/19 at 17:30 Phenol (Cepastat Lozenge) 1 lozenge Q1H PRN MT COUGH Last administered on 01/17/19 22:16; Admin Dose 1 LOZENGE; Start 01/02/19 at 12:30 Famotidine (Pepcid) 20 mg DAILY PO Last administered on 01/23/19 09:13; Admin Dose 20 MG; Start 01/03/19 at 09:00 Morphine Sulfate (morphine) 6 mg Q4H PRN PO SEVERE PAIN LEVEL 7-10 Last administered on 01/23/19 09:13; Admin Dose 6 MG; Start 01/07/19 at 23:30 Levalbuterol (Xopenex Neb) 0.63 mg Q4H RESP THERAPY HHN Last administered on 01/23/19 13:01; Admin Dose 0.63 MG; Start 01/10/19 at 01:00 Apixaban (Eliquis) 10 mg BID PO Last administered on 01/23/19 09:58; Admin Dose 10 MG; Start 01/22/19 at 21:00; Stop 01/28/19 at 23:00 Fluconazole (Diflucan) 100 mg DAILY PO ; Start 01/24/19 at 09:00 HAYLEE ENGLE NP Jan 23, 2019 14:00
--- NOTE | 2019-01-23 15:06 | PN ---
Date/Time of Note Date/Time of Note DATE: 01/23/19 TIME: 15:05 Assessment/Plan VTE Prophylaxis Risk score (from Ns)>0 risk: 5 SCD applied (from Ns): Yes Pharmacological prophylaxis: apixaban Lines/Catheters [facility] Peripheral IV Urinary Cath still in place: No Assessment/Plan Assessment/Plan 28-year-old man coming in with productive cough, hemoptysis for last 7 to 10 days prior to admission, with signs of leukocytosis and pneumonia with a prior history of IV drug abuse, endocarditis, pacemaker and pulmonary embolism and tricuspid valve repair. # Cough and hemoptysis # Hypoxia #Acute pulmonary embolism -The original CTA chest from January 02 does in fact show acute pulmonary emboli, along with cavitary lesions and possible septic emboli. - Repeat CTA chest 01/15 shows similar findings. - Lower extremity Doppler study performed negative for DVT. - Per Dr. Mcduffie, IVC filter placed on 01/17/19. Will discuss if this can be removed soon; it puts him at further thromboembolic risk. - Cont apixaban (10 BID x7 days then 5 BID for at least 6 months) # Pneumonia - ceftriaxone 01/09-01/22 - Levaquin per ID # Bacteremia- Blood cultures growing 2/2 bottles corynebacteria - MADINA indeterminate for vegetations on tricuspid valve. 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 - counseled on cessation. # History of prior pacemaker-monitor for now, continue current cardiac medica tions, follow cardiology recommendations # History of peptic ulcer disease - H2 sharona. Otherwise, no present issues. Dispo: Tentative plan for discharge on oral anticoagulation and oral antibiot ics. Will need plan from pulmonary when IVC filter can come out. Right now he needs oxygen which is a problem because he's homeless. Result Diagram: 01/23/19 1108 01/23/19 1108 Subjective 24 Hr Interval Summary Free Text/Dictation No acute overnight events. Exam/Review of Systems Exam Vitals Vital Signs Date Temp Pulse Resp B/P (MAP) Pulse Ox O2 O2 Flow FiO2 Time Delivery Rate 01/23/19 89 20 98 Nasal 2.0 13:01 Cannula 01/23/19 98.2 119/72 07:30 (88) 3/19/19 21 14:12 Intake and Output 01/22/19 01/22/19 01/23/19 1414:59 22:59 06:59 IntakeIntake Total 1768 ml 840 ml 300 ml OutputOutput Total 1900 ml 1250 ml 900 ml BalanceBalance -132 ml -410 ml -600 ml Exam GENERAL: lying in bed, sleeping HEENT: Pupils are equal, round, react to light. Extraocular muscles are intact. NECK: Supple. No thyromegaly. LUNGS: Distant breath sounds bilaterally. CARDIOVASCULAR: S1, S2 heard. No rubs or gallops. ABDOMEN: Soft, nontender, nondistended. Normal bowel sounds. No rebound or guarding. MUSCULOSKELETAL: No lower extremity edema bilaterally. Results Results 24hrs Laboratory Tests Test 01/23/19 11:08 White Blood Count 6.2 Red Blood Count 3.66 L Hemoglobin 9.8 L Hematocrit 31.1 L Mean Corpuscular Volume 85.0 Mean Corpuscular Hemoglobin 26.8 L Mean Corpuscular Hemoglobin Concent 31.5 L Red Cell Distribution Width 15.5 H Platelet Count 227 # Mean Platelet Volume 9.3 Immature Granulocytes % 0.300 Neutrophils % 60.9 Lymphocytes % 21.1 Monocytes % 7.0 Eosinophils % 9.6 H Basophils % 1.1 Nucleated Red Blood Cells % 0.0 Immature Granulocytes # 0.020 Neutrophils # 3.8 Lymphocytes # 1.3 Monocytes # 0.4 Eosinophils # 0.6 H Basophils # 0.1 Nucleated Red Blood Cells # 0.0 Sodium Level 143 Potassium Level 3.9 Chloride Level 108 Carbon Dioxide Level 28 Anion Gap 7 Blood Urea Nitrogen 13 Creatinine 0.94 Est Glomerular Filtrat Rate mL/min > 60 Glucose Level 95 Calcium Level 9.0 Phosphorus Level 4.3 Magnesium Level 1.9 Medications Medication Current Medications IV Flush (NS 3 ml) 3 ml PER PROTOCOL IV ; Start 12/31/18 at 18:30 Ondansetron HCl (Zofran Inj) 4 mg Q6H PRN IV NAUSEA/VOMITING Last administered on 01/21/19at 19:24; Admin Dose 4 MG; Start 12/31/18 at 18:30 Acetaminophen (Tylenol Tab) 650 mg Q6H PRN PO .PAIN 1-3 OR TEMP Last administered on 01/03/19at 11:17; Admin Dose 650 MG; Start 12/31/18 at 18:30 Acetaminophen/ Hydrocodone Bitart ([place] (5/325)) 1 tab Q6H PRN PO .MOD PAIN 4- 6 Last administered on 01/22/19 09:25; Admin Dose 1 TAB; Start 12/31/18 at 18:30 Docusate Sodium (Colace) 100 mg Q12H PRN PO .CONSTIPATION Last administered on 01/20/19 01:33; Admin Dose 100 MG; Start 12/31/18 at 18:30 Magnesium Hydroxide (Milk Of Mag) 30 ml DAILY PRN PO .CONSTIPATION Last administered on 01/20/19 05:41; Admin Dose 30 ML; Start 12/31/18 at 18:30 Albuterol/ Ipratropium (Duoneb) 3 ml Q4H RESP THERAPY PRN HHN SHORTNESS OF BREATH Last administered on 01/09/19 19:19; Admin Dose 3 ML; Start 12/31/18 at 18:30 Hydralazine HCl (Apresoline) 10 mg Q6H PRN IV ELEVATED BLOOD PRESSURE; Start 12/31/18 at 18:30 Nitroglycerin (Nitroglycerin (Sl Tab) 0.4 Mg) 1 tab Q5M PRN SL ANGINA; Start 12/31/18 at 18:30 Guaifenesin (Robitussin Liquid Cup) 200 mg Q4H PRN PO COUGH Last administered on 01/23/19 09:13; Admin Dose 200 MG; Start 01/01/19 at 11:30 Ibuprofen (Motrin) 600 mg Q6H PRN PO MILD PAIN LEVEL 1-3 Last administered on 01/15/19 05:34; Admin Dose 600 MG; Start 01/01/19 at 17:30 Phenol (Cepastat Lozenge) 1 lozenge Q1H PRN MT COUGH Last administered on 01/17/19 22:16; Admin Dose 1 LOZENGE; Start 01/02/19 at 12:30 Famotidine (Pepcid) 20 mg DAILY PO Last administered on 01/23/19 09:13; Admin Dose 20 MG; Start 01/03/19 at 09:00 Morphine Sulfate (morphine) 6 mg Q4H PRN PO SEVERE PAIN LEVEL 7-10 Last administered on 01/23/19 09:13; Admin Dose 6 MG; Start 01/07/19 at 23:30 Levalbuterol (Xopenex Neb) 0.63 mg Q4H RESP THERAPY HHN Last administered on 01/23/19at 13:01; Admin Dose 0.63 MG; Start 01/10/19 at 01:00 Apixaban (Eliquis) 10 mg BID PO Last administered on 01/23/19at 09:58; Admin Dose 10 MG; Start 01/22/19 at 21:00; Stop 01/28/19 at 23:00 ALEX CLARKE MD Jan 23, 2019 15:06
[2019-01-23 15:36] VITALS: BP 125/75; PULSE 63; RESP 17
--- NOTE | 2019-01-23 18:53 | CONS ---
Assessment/Plan Assessment/Plan Hospital Course (Demo Recall) IMPRESSION: 1. Bacteremia, assess for intracardiac source of infection, rule out endocarditis.- s/p MADINA 01/08 with chronic prior changes of TVR and nonspecific findings associated with pacer leads. No definite findings of vegetations. bLD CX'S 01/01 remain negative to date 2. History of permanent pacemaker. 3. History of tricuspid valve repair. 4. History of IV drug abuse with ongoing drug usage and toxicology positive for amphetamines and cannabinoids. 5. History of peptic ulcer disease. 6. Cough and hemoptysis.- s/p chest CT with cavitary lesions 7. PE s/p IVC filter Recc: -tele -would f/u cx data as MADINA without definite findings of ongoing vegetations but with chronic changes -Voriconazole d/c'd and patient to start levaquin and doxycycline per ID -Pulmonary following and ID -Patient now s/p IVC filter and is being started anticoagulation. Possible removal of IVC filter if patient continues to tolerate anticoagulation? Consultation Date/Type/Reason Admit Date/Time Dec 31, 2018 at 18:14 Initial Consult Date 01/08/19 Type of Consult Cardiology Reason for Consultation bacteremia Requesting Provider: ALEX CLARKE MD Date/Time of Note DATE: 01/23/19 TIME: 18:51 Exam/Review of Systems Vital Signs Vitals Vital Signs Date Temp Pulse Resp B/P (MAP) Pulse Ox O2 O2 Flow FiO2 Time Delivery Rate 01/23/19 2.0 17:39 01/23/19 89 20 96 Nasal 17:39 Cannula 01/23/19 98.7 125/75 15:36 (92) 01/21/19 14:12 Intake and Output 01/22/19 01/22/19 01/23/19 1515:00 23:00 07:00 IntakeIntake Total 1768 ml 840 ml 300 ml OutputOutput Total 1900 ml 1250 ml 900 ml BalanceBalance -132 ml -410 ml -600 ml Exam Exam Review of Systems: CONSTITUTIONAL: No fevers, chills. PULMONARY: No sob CARDIOVASCULAR: No chest pain/palpitations GASTROINTESTINAL: No nausea/vomiting. GENITOURINARY: No hematuria/dysuria. MUSCULOSKELETAL: No myagias/arthalgias. PSYCHIATRIC: The patient denies depression. NEUROLOGIC: No weakness Constitutional: alert Psych: no complaints Head: normocephalic ENMT: mucosa pink and moist Neck: supple, jvd (9 cm water) Respiratory: diminished breath sounds Cardiovascular: regular rate and rhythm Gastrointestinal: soft, non-tender Musculoskeletal: muscle tone (normal) Extremities: edema (none) Neurological: other (No focal deficits) Labs Result Diagram: 01/23/19 1108 01/23/19 1108 Results 24hrs Laboratory Tests Test 01/23/19 11:08 White Blood Count 6.2 Red Blood Count 3.66 L Hemoglobin 9.8 L Hematocrit 31.1 L Mean Corpuscular Volume 85.0 Mean Corpuscular Hemoglobin 26.8 L Mean Corpuscular Hemoglobin Concent 31.5 L Red Cell Distribution Width 15.5 H Platelet Count 227 # Mean Platelet Volume 9.3 Immature Granulocytes % 0.300 Neutrophils % 60.9 Lymphocytes % 21.1 Monocytes % 7.0 Eosinophils % 9.6 H Basophils % 1.1 Nucleated Red Blood Cells % 0.0 Immature Granulocytes # 0.020 Neutrophils # 3.8 Lymphocytes # 1.3 Monocytes # 0.4 Eosinophils # 0.6 H Basophils # 0.1 Nucleated Red Blood Cells # 0.0 Sodium Level 143 Potassium Level 3.9 Chloride Level 108 Carbon Dioxide Level 28 Anion Gap 7 Blood Urea Nitrogen 13 Creatinine 0.94 Est Glomerular Filtrat Rate mL/min > 60 Glucose Level 95 Calcium Level 9.0 Phosphorus Level 4.3 Magnesium Level 1.9 Medications Medications Current Medications IV Flush (NS 3 ml) 3 ml PER PROTOCOL IV ; Start 12/31/18 at 18:30 Ondansetron HCl (Zofran Inj) 4 mg Q6H PRN IV NAUSEA/VOMITING Last administered on 01/21/19at 19:24; Admin Dose 4 MG; Start 12/31/18 at 18:30 Acetaminophen (Tylenol Tab) 650 mg Q6H PRN PO .PAIN 1-3 OR TEMP Last administered on 01/03/19at 11:17; Admin Dose 650 MG; Start 12/31/18 at 18:30 Acetaminophen/ Hydrocodone Bitart ([place] (5/325)) 1 tab Q6H PRN PO .MOD PAIN 4- 6 Last administered on 01/22/19at 09:25; Admin Dose 1 TAB; Start 12/31/18 at 18:30 Docusate Sodium (Colace) 100 mg Q12H PRN PO .CONSTIPATION Last administered on 01/20/19 01:33; Admin Dose 100 MG; Start 12/31/18 at 18:30 Magnesium Hydroxide (Milk Of Mag) 30 ml DAILY PRN PO .CONSTIPATION Last administered on 01/20/19 05:41; Admin Dose 30 ML; Start 12/31/18 at 18:30 Albuterol/ Ipratropium (Duoneb) 3 ml Q4H RESP THERAPY PRN HHN SHORTNESS OF BREATH Last administered on 01/09/19 19:19; Admin Dose 3 ML; Start 12/31/18 at 18:30 Hydralazine HCl (Apresoline) 10 mg Q6H PRN IV ELEVATED BLOOD PRESSURE; Start 12/31/18 at 18:30 Nitroglycerin (Nitroglycerin (Sl Tab) 0.4 Mg) 1 tab Q5M PRN SL ANGINA; Start 12/31/18 at 18:30 Guaifenesin (Robitussin Liquid Cup) 200 mg Q4H PRN PO COUGH Last administered on 01/23/19 09:13; Admin Dose 200 MG; Start 01/01/19 at 11:30 Ibuprofen (Motrin) 600 mg Q6H PRN PO MILD PAIN LEVEL 1-3 Last administered on 05:34; Admin Dose 600 MG; Start 01/01/19 at 17:30 Phenol (Cepastat Lozenge) 1 lozenge Q1H PRN MT COUGH Last administered on 01/17/19 22:16; Admin Dose 1 LOZENGE; Start 01/02/19 at 12:30 Famotidine (Pepcid) 20 mg DAILY PO Last administered on 01/23/19 09:13; Admin Dose 20 MG; Start 01/03/19 at 09:00 Morphine Sulfate (morphine) 6 mg Q4H PRN PO SEVERE PAIN LEVEL 7-10 Last administered on 01/23/19 09:13; Admin Dose 6 MG; Start 01/07/19 at 23:30 Levalbuterol (Xopenex Neb) 0.63 mg Q4H RESP THERAPY HHN Last administered on 01/23/19at 17:39; Admin Dose 0.63 MG; Start 01/10/19 at 01:00 Apixaban (Eliquis) 10 mg BID PO Last administered on 01/23/19at 09:58; Admin Dose 10 MG; Start 01/22/19 at 21:00; Stop 01/28/19 at 23:00 ALEX TRAN Jan 23, 2019 18:53
[2019-01-23 20:16] VITALS: BP 135/87; PULSE 97; RESP 18
[2019-01-24] MEDS: LEVALBUTEROL (NEB) 0.63 MG/3 ML AMP HHN SCH ×5 (00:45→17:43)
[2019-01-24 02:09] VITALS: BP 152/98; PULSE 103; RESP 18
[2019-01-24 07:24] VITALS: BP 150/100; PULSE 90; RESP 17
[2019-01-24] MEDS ORDERED: FLUCONAZOLE 100 MG TAB PO SCH (09:00)
[2019-01-24] MEDS: FAMOTIDINE 20 MG TAB PO SCH (09:05)
[2019-01-24] MEDS: APIXABAN 5 MG TABLET PO SCH (09:06)
--- NOTE | 2019-01-24 10:50 | CONS ---
Assessment/Plan Assessment/Plan Hospital Course (Demo Recall) no events, awake, looks comfortable Microbiology: Blood culture on admission grew Corynebacterium species. Repeat blood cultures on January 01 and January 11 negative HIV serology negative. Antimicrobials: Levaquin, Doxycycline. Assessment: 1. S/p sepsis present on admission, resolving 2. Community-acquired pneumonia with repeat CT notes multiple thin-walled cav ities dense infiltrates ===>neg crypto/cocci/Aspergillus. 3. Hemoptysis 4. History of endocarditis==> per cardiology MADINA without definite findings of ongoing vegetations but with chronic changes 5. IV drug abuse 6. Coronary artery disease with a history of tricuspid valve replacement and permanent pacemaker placement 6. Bacteremia cw contaminant Plan: Stable, pending dc arrangements, poss IVC filter removal, pulmonary/card rec-s Consultation Date/Type/Reason Admit Date/Time Dec 31, 2018 at 18:14 Initial Consult Date Type of Consult id Requesting Provider: ALEX CLARKE MD Date/Time of Note DATE: 01/24/19 TIME: 10:47 Exam/Review of Systems Exam Vitals Vital Signs Date Temp Pulse Resp B/P (MAP) Pulse Ox O2 O2 Flow FiO2 Time Delivery Rate 01/24/19 110 14 98 Nasal 2.0 09:22 Cannula 01/24/19 99.2 150/100 07:24 (117) 01/23/19 21 20:25 Intake and Output 01/23/19 01/23/19 01/24/19 1515:00 23:00 07:00 IntakeIntake Total 1200 ml 360 ml 1280 ml OutputOutput Total 1600 ml 900 ml 1550 ml BalanceBalance -400 ml -540 ml -270 ml Results Result Diagram: 01/23/19 1108 01/23/19 1108 Results 24hrs Laboratory Tests Test 01/23/19 11:08 White Blood Count 6.2 Red Blood Count 3.66 L Hemoglobin 9.8 L Hematocrit 31.1 L Mean Corpuscular Volume 85.0 Mean Corpuscular Hemoglobin 26.8 L Mean Corpuscular Hemoglobin Concent 31.5 L Red Cell Distribution Width 15.5 H Platelet Count 227 # Mean Platelet Volume 9.3 Immature Granulocytes % 0.300 Neutrophils % 60.9 Lymphocytes % 21.1 Monocytes % 7.0 Eosinophils % 9.6 H Basophils % 1.1 Nucleated Red Blood Cells % 0.0 Immature Granulocytes # 0.020 Neutrophils # 3.8 Lymphocytes # 1.3 Monocytes # 0.4 Eosinophils # 0.6 H Basophils # 0.1 Nucleated Red Blood Cells # 0.0 Sodium Level 143 Potassium Level 3.9 Chloride Level 108 Carbon Dioxide Level 28 Anion Gap 7 Blood Urea Nitrogen 13 Creatinine 0.94 Est Glomerular Filtrat Rate mL/min > 60 Glucose Level 95 Calcium Level 9.0 Phosphorus Level 4.3 Magnesium Level 1.9 Medications Medication Current Medications IV Flush (NS 3 ml) 3 ml PER PROTOCOL IV ; Start 12/31/18 at 18:30 Ondansetron HCl (Zofran Inj) 4 mg Q6H PRN IV NAUSEA/VOMITING Last administered on 01/21/19 19:24; Admin Dose 4 MG; Start 12/31/18 at 18:30 Acetaminophen (Tylenol Tab) 650 mg Q6H PRN PO .PAIN 1-3 OR TEMP Last administered on 01/03/19 11:17; Admin Dose 650 MG; Start 12/31/18 at 18:30 Acetaminophen/ Hydrocodone Bitart ([place] (5/325)) 1 tab Q6H PRN PO .MOD PAIN 4- 6 Last administered on 01/22/19 09:25; Admin Dose 1 TAB; Start 12/31/18 at 18 :30 Docusate Sodium (Colace) 100 mg Q12H PRN PO .CONSTIPATION Last administered on 01/20/19 01:33; Admin Dose 100 MG; Start 12/31/18 at 18:30 Magnesium Hydroxide (Milk Of Mag) 30 ml DAILY PRN PO .CONSTIPATION Last administered on 01/20/19 05:41; Admin Dose 30 ML; Start 12/31/18 at 18:30 Albuterol/ Ipratropium (Duoneb) 3 ml Q4H RESP THERAPY PRN HHN SHORTNESS OF BREATH Last administered on 01/09/19 19:19; Admin Dose 3 ML; Start 12/31/18 at 18:30 Hydralazine HCl (Apresoline) 10 mg Q6H PRN IV ELEVATED BLOOD PRESSURE; Start 12/31/18 at 18:30 Nitroglycerin (Nitroglycerin (Sl Tab) 0.4 Mg) 1 tab Q5M PRN SL ANGINA; Start 12/31/18 at 18:30 Guaifenesin (Robitussin Liquid Cup) 200 mg Q4H PRN PO COUGH Last administered on 01/23/19 09:13; Admin Dose 200 MG; Start 01/01/19 at 11:30 Ibuprofen (Motrin) 600 mg Q6H PRN PO MILD PAIN LEVEL 1-3 Last administered on 01/15/19 05:34; Admin Dose 600 MG; Start 01/01/19 at 17:30 Phenol (Cepastat Lozenge) 1 lozenge Q1H PRN MT COUGH Last administered on 01/17/19 22:16; Admin Dose 1 LOZENGE; Start 01/02/19 at 12:30 Famotidine (Pepcid) 20 mg DAILY PO Last administered on 01/24/19 09:05; Admin Dose 20 MG; Start 01/03/19 at 09:00 Morphine Sulfate (morphine) 6 mg Q4H PRN PO SEVERE PAIN LEVEL 7-10 Last administered on 01/23/19 23:24; Admin Dose 6 MG; Start 01/07/19 at 23:30 Levalbuterol (Xopenex Neb) 0.63 mg Q4H RESP THERAPY HHN Last administered on 01/24/19 09:22; Admin Dose 0.63 MG; Start 01/10/19 at 01:00 Apixaban (Eliquis) 10 mg BID PO Last administered on 01/24/19 09:06; Admin Dose 10 MG; Start 01/22/19 at 21:00; Stop 01/28/19 at 23:00 HAYLEE ENGLE NP Jan 24, 2019 10:50
[2019-01-24] MEDS ORDERED: LEVOFLOXACIN 500 MG TAB PO SCH (11:00)
[2019-01-24] MEDS ORDERED: DOXYCYCLINE 100 MG TAB PO SCH (11:00)
[2019-01-24 14:18] VITALS: BP 151/100; PULSE 105; RESP 18
--- NOTE | 2019-01-24 15:19 | PN ---
Date/Time of Note Date/Time of Note DATE: 01/24/19 TIME: 15:13 Assessment/Plan VTE Prophylaxis Risk score (from Ns)>0 risk: 5 SCD applied (from Ns): Yes Pharmacological prophylaxis: apixaban Lines/Catheters [facility] Peripheral IV Urinary Cath still in place: No Assessment/Plan Assessment/Plan 28-year-old man coming in with productive cough, hemoptysis for last 7 to 10 days prior to admission, with signs of leukocytosis and pneumonia with a prior history of IV drug abuse, endocarditis, pacemaker and pulmonary embolism and tricuspid valve repair. # Cough and hemoptysis #Acute pulmonary embolism -The original CTA chest from January 02 does in fact show acute pulmonary emboli, along with cavitary lesions and possible septic emboli. - Repeat CTA chest 01/15 shows similar findings. - Lower extremity Doppler study performed negative for DVT. - Per Dr. Mcduffie, IVC filter placed on 01/17/19. Will plan for removal on Sunday. - Cont apixaban (10 BID x7 days then 5 BID for at least 6 months) #Hypoxia - Likely due to pulmonary embolism and now recovering from pneumonia - From desat study 01/24 patient was able to ambulate slowly with mild dyspnea on room air, desaturated to 88% minimum when walking briskly, sats came back up spontaneously when paced slowed down. - Would benefit from home oxygen but is not strictly necessary. - However patient would benefit from some kind of interim housing and is not yet fit enough for discharge back to the streets without oxygen. # Pneumonia - ceftriaxone 01/09-01/22 - Levaquin per ID # Bacteremia- Blood cultures growing 2/2 bottles corynebacteria - MADINA indeterminate for vegetations on tricuspid valve. 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 - counseled on cessation. # History of prior pacemaker-monitor for now, continue current cardiac medications, follow cardiology recommendations # History of peptic ulcer disease - H2 sharona. Otherwise, no present issues. Dispo: Medically stable for discharge on oral anticoagulation and oral antibiotics. Plan for IVC filter removal by Dr. Peck on Sunday. [facility] equivalent preferably with oxygen but not entirely necessary. Result Diagram: 01/23/19 1108 01/23/19 1108 Subjective 24 Hr Interval Summary Free Text/Dictation No acute overnight events. Patient feeling well. Ambulated around the unit, patient desaturated to 88% minimum and mild dyspnea. But when walking slowly he does not need oxygen. Exam/Review of Systems Exam Vitals Vital Signs Date Temp Pulse Resp B/P (MAP) Pulse Ox O2 O2 Flow FiO2 Time Delivery Rate 01/24/19 98.3 105 18 151/100 100 Nasal 14:18 (117) Cannula 01/24/19 2.0 12:06 01/23/19 21 20:25 Intake and Output 01/23/19 01/23/19 01/24/19 1414:59 22:59 06:59 IntakeIntake Total 1200 ml 360 ml 1280 ml OutputOutput Total 1600 ml 900 ml 1550 ml BalanceBalance -400 ml -540 ml -270 ml Exam GENERAL: Sitting up in bed, interactive. HEENT: Pupils are equal, round, react to light. Extraocular muscles are intact. NECK: Supple. No thyromegaly. LUNGS: Distant breath sounds bilaterally. CARDIOVASCULAR: S1, S2 heard. No rubs or gallops. ABDOMEN: Soft, nontender, nondistended. Normal bowel sounds. No rebound or guarding. MUSCULOSKELETAL: No lower extremity edema bilaterally. Medications Medication Current Medications IV Flush (NS 3 ml) 3 ml PER PROTOCOL IV ; Start 12/31/18 at 18:30 Ondansetron HCl (Zofran Inj) 4 mg Q6H PRN IV NAUSEA/VOMITING Last administered on 01/21/19 19:24; Admin Dose 4 MG; Start 12/31/18 at 18:30 Acetaminophen (Tylenol Tab) 650 mg Q6H PRN PO .PAIN 1-3 OR TEMP Last administered on 01/03/19 11:17; Admin Dose 650 MG; Start 12/31/18 at 18:30 Acetaminophen/ Hydrocodone Bitart ([place] (5/325)) 1 tab Q6H PRN PO .MOD PAIN 4- 6 Last administered on 01/22/19 09:25; Admin Dose 1 TAB; Start 12/31/18 at 18:30 Docusate Sodium (Colace) 100 mg Q12H PRN PO .CONSTIPATION Last administered on 01/20/19 01:33; Admin Dose 100 MG; Start 12/31/18 at 18:30 Magnesium Hydroxide (Milk Of Mag) 30 ml DAILY PRN PO .CONSTIPATION Last administered on 01/20/19 05:41; Admin Dose 30 ML; Start 12/31/18 at 18:30 Albuterol/ Ipratropium (Duoneb) 3 ml Q4H RESP THERAPY PRN HHN SHORTNESS OF BREATH Last administered on 01/09/19 19:19; Admin Dose 3 ML; Start 12/31/18 at 18:30 Hydralazine HCl (Apresoline) 10 mg Q6H PRN IV ELEVATED BLOOD PRESSURE; Start 12/31/18 at 18:30 Nitroglycerin (Nitroglycerin (Sl Tab) 0.4 Mg) 1 tab Q5M PRN SL ANGINA; Start 12/31/18 at 18:30 Guaifenesin (Robitussin Liquid Cup) 200 mg Q4H PRN PO COUGH Last administered on 01/23/19 09:13; Admin Dose 200 MG; Start 01/01/19 at 11:30 Ibuprofen (Motrin) 600 mg Q6H PRN PO MILD PAIN LEVEL 1-3 Last administered on 01/15/19 05:34; Admin Dose 600 MG; Start 01/01/19 at 17:30 Phenol (Cepastat Lozenge) 1 lozenge Q1H PRN MT COUGH Last administered on 01/17/19 22:16; Admin Dose 1 LOZENGE; Start 01/02/19 at 12:30 Famotidine (Pepcid) 20 mg DAILY PO Last administered on 01/24/19 09:05; Admin Dose 20 MG; Start 01/03/19 at 09:00 Morphine Sulfate (morphine) 6 mg Q4H PRN PO SEVERE PAIN LEVEL 7-10 Last administered on 01/23/19 23:24; Admin Dose 6 MG; Start 01/07/19 at 23:30 Levalbuterol (Xopenex Neb) 0.63 mg Q4H RESP THERAPY HHN Last administered on 01/24/19 12:05; Admin Dose 0.63 MG; Start 01/10/19 at 01:00 Apixaban (Eliquis) 10 mg BID PO Last administered on 01/24/19 09:06; Admin Dose 10 MG; Start 01/22/19 at 21:00; Stop 01/28/19 at 23:00 Levofloxacin (Levaquin) 500 mg DAILY@06 PO Last administered on 01/24/19at 11:19; Admin Dose 500 MG; Start 01/24/19 at 11:00 Doxycycline Hyclate (Vibramycin) 100 mg BID PO Last administered on 01/24/19at 11:19; Admin Dose 100 MG; Start 01/24/19 at 11:00 ALEX CLARKE MD Jan 24, 2019 15:19
[2019-01-24 17:23] VITALS: BP 142/93; PULSE 95
--- NOTE | 2019-01-24 18:34 | PDOCDIS ---
Discharge Instructions DIAGNOSIS Discharge Diagnosis Acute pulmonary embolism Pneumonia CONDITION [id number] Patient Condition: [id number] Guarded HOME CARE INSTRUCTIONS: [id number] Diet Instructions: [id number] Regular ACTIVITY: [id number] Activity Restrictions: [id number] No Restrictions FOLLOW UP/APPOINTMENTS Follow-up Plan 1. Take all medications as prescribed. 2. For worsening shortness of breath, return to the ED. ALEX CLARKE MD Jan 24, 2019 18:34
--- NOTE | 2019-01-24 18:43 | CONS ---
Assessment/Plan Assessment/Plan Hospital Course (Demo Recall) IMPRESSION: 1. Bacteremia, assess for intracardiac source of infection, rule out endocarditis.- s/p MADINA 01/08 with chronic prior changes of TVR and nonspecific findings associated with pacer leads. No definite findings of vegetations. bLD CX'S 01/01 remain negative to date 2. History of permanent pacemaker. 3. History of tricuspid valve repair. 4. History of IV drug abuse with ongoing drug usage and toxicology positive for amphetamines and cannabinoids. 5. History of peptic ulcer disease. 6. Cough and hemoptysis.- s/p chest CT with cavitary lesions 7. PE s/p IVC filter Recc: -tele -would f/u cx data as MADINA without definite findings of ongoing vegetations but with chronic changes -Voriconazole d/c'd and patient to start levaquin and doxycycline per ID -Pulmonary following and ID -Patient on anticoagulation and is to have IVC filter removed as tolerating anticoagulation -start antihypertensives and f/u BP Consultation Date/Type/Reason Admit Date/Time Dec 31, 2018 at 18:14 Initial Consult Date 01/08/19 Type of Consult Cardiology Reason for Consultation bacteremia Requesting Provider: ALEX CLARKE MD Date/Time of Note DATE: 01/24/19 TIME: 18:41 Exam/Review of Systems Vital Signs Vitals Vital Signs Date Temp Pulse Resp B/P (MAP) Pulse Ox O2 O2 Flow FiO2 Time Delivery Rate 01/24/19 99 16 99 Nasal 2.0 17:44 Cannula 01/24/19 142/93 17:23 (109) 01/24/19 98.3 14:18 01/23/19 21 20:25 Intake and Output 01/23/19 01/23/19 01/24/19 1515:00 23:00 07:00 IntakeIntake Total 1200 ml 360 ml 1280 ml OutputOutput Total 1600 ml 900 ml 1550 ml BalanceBalance -400 ml -540 ml -270 ml Exam Exam Review of Systems: CONSTITUTIONAL: No fevers, chills. PULMONARY: No sob CARDIOVASCULAR: No chest pain/palpitations GASTROINTESTINAL: No nausea/vomiting. GENITOURINARY: No hematuria/dysuria. MUSCULOSKELETAL: No myagias/arthalgias. PSYCHIATRIC: The patient denies depression. NEUROLOGIC: No weakness Constitutional: alert Psych: no complaints Head: normocephalic ENMT: mucosa pink and moist Neck: supple, jvd (9 cm water) Respiratory: clear to auscultation Cardiovascular: regular rate and rhythm Gastrointestinal: soft, non-tender Musculoskeletal: muscle tone (normal) Extremities: edema (none) Neurological: other (No focal deficits) Labs Result Diagram: 01/23/19 1108 01/23/19 1108 Medications Medications Current Medications IV Flush (NS 3 ml) 3 ml PER PROTOCOL IV ; Start 12/31/18 at 18:30 Ondansetron HCl (Zofran Inj) 4 mg Q6H PRN IV NAUSEA/VOMITING Last administered on 01/21/19 19:24; Admin Dose 4 MG; Start 12/31/18 at 18:30 Acetaminophen (Tylenol Tab) 650 mg Q6H PRN PO .PAIN 1-3 OR TEMP Last administered on 01/03/19 11:17; Admin Dose 650 MG; Start 12/31/18 at 18:30 Acetaminophen/ Hydrocodone Bitart ([place] (5/325)) 1 tab Q6H PRN PO .MOD PAIN 4- 6 Last administered on 01/22/19 09:25; Admin Dose 1 TAB; Start 12/31/18 at 18:30 Docusate Sodium (Colace) 100 mg Q12H PRN PO .CONSTIPATION Last administered on 01/20/19 01:33; Admin Dose 100 MG; Start 12/31/18 at 18:30 Magnesium Hydroxide (Milk Of Mag) 30 ml DAILY PRN PO .CONSTIPATION Last administered on 01/20/19 05:41; Admin Dose 30 ML; Start 12/31/18 at 18:30 Albuterol/ Ipratropium (Duoneb) 3 ml Q4H RESP THERAPY PRN HHN SHORTNESS OF BREATH Last administered on 01/09/19 19:19; Admin Dose 3 ML; Start 12/31/18 at 18:30 Hydralazine HCl (Apresoline) 10 mg Q6H PRN IV ELEVATED BLOOD PRESSURE; Start 12/31/18 at 18:30 Nitroglycerin (Nitroglycerin (Sl Tab) 0.4 Mg) 1 tab Q5M PRN SL ANGINA; Start 12/31/18 at 18:30 Guaifenesin (Robitussin Liquid Cup) 200 mg Q4H PRN PO COUGH Last administered on 01/23/19 09:13; Admin Dose 200 MG; Start 01/01/19 at 11:30 Ibuprofen (Motrin) 600 mg Q6H PRN PO MILD PAIN LEVEL 1-3 Last administered on 01/15/19 05:34; Admin Dose 600 MG; Start 01/01/19 at 17:30 Phenol (Cepastat Lozenge) 1 lozenge Q1H PRN MT COUGH Last administered on 01/17/19 22:16; Admin Dose 1 LOZENGE; Start 01/02/19 at 12:30 Famotidine (Pepcid) 20 mg DAILY PO Last administered on 01/24/19 09:05; Admin Dose 20 MG; Start 01/03/19 at 09:00 Morphine Sulfate (morphine) 6 mg Q4H PRN PO SEVERE PAIN LEVEL 7-10 Last administered on 01/23/19 23:24; Admin Dose 6 MG; Start 01/07/19 at 23:30 Levalbuterol (Xopenex Neb) 0.63 mg Q4H RESP THERAPY HHN Last administered on 01/24/19 17:43; Admin Dose 0.63 MG; Start 01/10/19 at 01:00 Apixaban (Eliquis) 10 mg BID PO Last administered on 01/24/19 09:06; Admin Dose 10 MG; Start 01/22/19 at 21:00; Stop 01/28/19 at 23:00 Levofloxacin (Levaquin) 500 mg DAILY@06 PO Last administered on 01/24/19 11:19; Admin Dose 500 MG; Start 01/24/19 at 11:00 Doxycycline Hyclate (Vibramycin) 100 mg BID PO Last administered on 01/24/19 11:19; Admin Dose 100 MG; Start 01/24/19 at 11:00 ALEX TRAN 22, 2019 18:43
[2019-01-25] MEDS ORDERED: BENAZEPRIL 10 MG TAB PO SCH (09:00)
--- NOTE | 2019-01-25 17:02 | DS ---
Date/Time of Note Date/Time of Note DATE: 01/25/19 TIME: 16:56 Discharge Summary Admission/Discharge Info Admit Date/Time Dec 31, 2018 at 18:14 Discharge Date/Time Jan 24, 2019 at 18:40 Discharge Diagnosis Acute pulmonary embolism Pneumonia Patient Condition: Good Consults Dr. Mcduffie, pulmonary medicine Dr. Mustafa, cardiology Dr. Odell, infectious disease Procedures IVC filter placement 01/17/19 Hx of Present Illness CHIEF COMPLAINT: Productive cough, possible hemoptysis x1 week. 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 He states he has been coughing up productive sputum and having some hemoptysis for the last 7 to 10 days. Denied any lower GI bleeding. No significant fevers or chills. No diarrhea or constipation. No significant nausea or vomiting. When the patient came in today, he had some abnormal labs including white blood cell count of 22.3. He is also found to have tachycardia, heart rate in the 115 to 120 range and his chest x-ray did show signs of left lower lobe infiltrate and right mid lung atelectasis and patient was given antibiotics in the ER, broad spectrum. The patient was last here at our hospital in 05/2018. At that time, he was treated for endocarditis, although he did leave against medical advice during the hospital stay. PAST MEDICAL HISTORY: As stated above. ALLERGIES: NO KNOWN DRUG ALLERGIES. HOME MEDICATIONS: Aspirin 81 mg daily. PAST SURGICAL HISTORY: Again, he has had looked like that either tricuspid valve replacement or repair in the past. SOCIAL HISTORY: Positive alcohol use. Positive for substance abuse including methamphetamine and weeds and the patient is a smoker. FAMILY HISTORY: Unknown. Hospital Course On admission, blood cultures grew corynebacterum, alvarado-sensitive. Repeat blood cultures negative. To evaluate for endocarditis, he had a TTE and MADINA done; which showed some tricuspid valve changes related to his prior valve repair done in that area. But otherwise no vegetations. He was treated with IV ceftriaxone for 2 weeks for pneumonia, but otherwise no prolonged treatment for endocarditis. He had a chest CT concerning for bilateral pulmonary embolisms. He was started on heparin gtt and transitioned to apixaban. Prior to this Dr. Mcduffie requested IVC filter placement which was done. Bilateral LE duplex was negative for DVT. The patient was hypoxic requiring supplemental oxygen most of hospital course. Ambulating on room air, he desaturated to 86%. For several days he was clear for discharge pending home oxygen but the patient was homeless. The evening of 01/24 the patient suddenly demanded discharge, saying he was going to his mother's house. We had planned to keep him in house to remove the IVC filter and possibly arrange home O2. However the patient left without these being done. I did prescribe apixaban to his listed pharmacy. Home Meds Reported Medications Aspirin* (Aspirin* EC) 81 Mg Tablet., 81 MG PO DAILY, TAB TAKE 2 OR 3 TIMES A DAY 04/27/18 Follow-up Plan 1. Take all medications as prescribed. 2. For worsening shortness of breath, return to the ED. Primary Care Provider Not On Staff Doctor Time spent on discharge: > 30 minutes ALEX CLARKE MD Jan 25, 2019 17:02
== END 2019-01-24 18:40 | disposition home or self-care (01) | DRG 853 ==
LOC: E/R 15:19 → TEL 18:14 → 2NE 01-09 18:49
PROVIDERS: ADMIT Hospitalist; ATTEND Internal Medicine
PROC: B24BZZ4 Ultrasonography of Heart with Aorta, Transesophageal (ICD-10-PCS; 2019-01-08)
PROC: 06H03DZ Insertion of Intraluminal Device into Inferior Vena Cava, Percutaneous Approach (ICD-10-PCS; principal; 2019-01-17 16:00)
DX: A41.9 Sepsis, unspecified organism (principal); J18.9 Pneumonia, unspecified organism; I26.90 Septic pulmonary embolism without acute cor pulmonale; R65.20 Severe sepsis without septic shock; D64.9 Anemia, unspecified; R09.02 Hypoxemia; I25.10 Atherosclerotic heart disease of native coronary artery without angina pectoris; Z95.0 Presence of cardiac pacemaker; Z59.0 Homelessness; Z86.711 Personal history of pulmonary embolism; Z95.2 Presence of prosthetic heart valve
CPT/HCPCS: 36415; 36600; 71045; 71046; 71250; 71275; 75825; 75940; 80048; 80053; 80061; 80202; 80307; 81001; 82540; 82803; 83036; 83605; 83735; 84100; 84155; 84300; 84439; 84443; 84484; 85025; 85610; 85730; 86606; 86635; 86641; 86703; 87040; 87070; 87081; 87086; 93005; 93306; 93312; 93970; 94640; 96365; 96367; J0456; J0692; J0696; J1644; J2060; J2270; J2405; J2543; J3370; J7030; J7040; Q9967

== ENCOUNTER 2019-03-17 10:07 | Inpatient (IN) | payer OTHER ==
[2019-03-17] VITALS (8 sets, daily range): BP systolic 96–157; BP diastolic 77–108; PULSE 104–125; RESP 22–32; BMI 21.4
[~2019-03-17] VITALS: Ht 167.6 cm; Wt 82.7 kg
[2019-03-17] MEDS ORDERED: SOD CHLORIDE 0.9% 1,000 ML IV STA ×2 (10:45→11:53)
--- NOTE | 2019-03-17 11:00 | ERD ---
ER Documentation Chief Complaint Chief Complaint Pt. IVAN PIZANO with c/o chest pain, took meth yesterday per EMS report. Hx: PM HPI This is a 28-year-old male with a history of endocarditis secondary to IV drug abuse requiring open heart surgery a year and a half ago. The patient is homeless and said that he has been abstaining from drug use until yesterday. He said he called his mother for Mother's Day and she told him that he is to her and he decided to abuse drugs by smoking meth because he felt bad. He is here because of having some substernal chest pain from using meth all night. Denies any fever vomiting abdominal pain or difficulty breathing. ROS All systems reviewed and are negative except as per history of present illness. Medications Home Meds No Active Prescriptions or Reported Meds Allergies Allergies: Coded Allergies: No Known Allergy (Unverified , 03/17/19) PMhx/Soc History of Surgery: Yes (heart surgery with PM due to "pericarditis") Anesthesia Reaction: No Hx Neurological Disorder: No Hx Respiratory Disorders: No Hx Cardiac Disorders: Yes (pericarditis, PM) Hx Psychiatric Problems: No Hx Miscellaneous Medical Probl: No Hx Alcohol Use: No Hx Substance Use: Yes (meth) Hx Tobacco Use: Yes Smoking Status: Current every day smoker FmHx Family History: No coronary disease Physical Exam Vitals Vital Signs Date Temp Pulse Resp B/P (MAP) Pulse Ox O2 O2 Flow FiO2 Time Delivery Rate 03/17/19 103.1 14:16 03/17/19 103.1 128 28 149/106 98 Nasal 3.0 14:11 (120) Cannula 03/17/19 88 18 96 21 13:58 03/17/19 Nasal 3 13:48 Cannula 03/17/19 101.4 135 30 133/88 97 Nasal 3.0 13:02 (103) Cannula 03/17/19 98.6 121 26 126/68 94 10:20 (87) Physical Exam Const: Well-developed, well-nourished Head: Atraumatic, normocephalic Eyes: Normal Conjunctiva, PERRLA, EOMI, normal sclera, no nystagmus ENT: Normal External Ears, Nose and Mouth, moist mucus membranes. Neck: Full range of motion. No meningismus, no lymphadenopathy. Resp: Clear to auscultation bilaterally, no wheezing, rhonchi, rales Cardio: Sinus tachycardia no murmurs, S1 S2 present] Abd: Soft, non tender x 4, non distended. Normal bowel sounds, no guarding or rebound, no pulsitile abdominal masses or bruits Skin: No petechiae or rashes, no ecchymosis , no maculopapular rash Back: No midline or flank tenderness Ext: No cyanosis, or edema, FROM x 4, normal inspection, neurovascularly intact x 4 Neur: Awake and alert, STR 5/5 x 4, sensation intact x 4, no focal findings, cerebellum intact Psych: Normal Mood and Affect Result Diagram: 03/17/19 1045 03/17/19 1045 Results 24 hrs Laboratory Tests Test 03/17/19 10:45 03/17/19 13:18 White Blood Count 8.8 10^3/ul Red Blood Count 4.31 10^6/ul Hemoglobin 11.5 g/dl Hematocrit 35.6 % Mean Corpuscular Volume 82.6 fl Mean Corpuscular Hemoglobin 26.7 pg Mean Corpuscular Hemoglobin Concent 32.3 g/dl Red Cell Distribution Width 15.3 % Platelet Count 228 10^3/UL Mean Platelet Volume 9.2 fl Immature Granulocytes % 0.600 % Neutrophils % 89.1 % Lymphocytes % 7.6 % Monocytes % 1.9 % Eosinophils % 0.5 % Basophils % 0.3 % Nucleated Red Blood Cells % 0.0 /100WBC Immature Granulocytes # 0.050 10^3/ul Neutrophils # 7.8 10^3/ul Lymphocytes # 0.7 10^3/ul Monocytes # 0.2 10^3/ul Eosinophils # 0.0 10^3/ul Basophils # 0.0 10^3/ul Nucleated Red Blood Cells # 0.0 10^3/ul Sodium Level 136 mmol/L Potassium Level 4.3 mmol/L Chloride Level 105 mmol/L Carbon Dioxide Level 18 mmol/L Anion Gap 13 Blood Urea Nitrogen 20 mg/dl Creatinine 1.16 mg/dl Est Glomerular Filtrat Rate mL/min > 60 mL/min Glucose Level 93 mg/dl Calcium Level 9.0 mg/dl Troponin I 0.081 ng/ml POC Venous Lactate 3.9 mmol/L Current Medications Medications Dose Sig/Beverly Start Time Status Last (Trade) Ordered Route PRN Stop Time Admin Dose Reason Admin Sodium 1,000 ml @ Q1H STAT 03/17/19 DC 03/17/19 Chloride 1,000 mls/hr IV 10:45 10:53 03/17/19 11:44 Lorazepam 1 mg ONCE ONCE 03/17/19 DC 03/17/19 (Ativan) IV 11:30 11:13 03/17/19 11:31 Lorazepam 1 mg ONCE ONCE 03/17/19 DC 03/17/19 (Ativan) IV 12:00 12:01 03/17/19 12:01 1 mg ONCE STAT 03/17/19 DC 03/17/19 Hydromorphone IV 11:51 12:01 HCl 03/17/19 11:57 (Dilaudid) Ceftriaxone 50 ml @ ONCE ONCE 03/17/19 DC 03/17/19 Sodium 100 mls/hr IVPB 12:00 12:00 03/17/19 12:29 Sodium 1,000 ml @ Q1H STAT 03/17/19 DC 03/17/19 Chloride 1,000 mls/hr IV 11:53 12:00 03/17/19 12:52 Cefepime HCl 50 ml @ ONCE STAT 03/17/19 DC 03/17/19 100 mls/hr IVPB 13:00 13:21 03/17/19 13:29 Vancomycin 250 ml @ ONCE STAT 03/17/19 03/17/19 HCl 125 mls/hr IVPB 13:00 13:39 03/17/19 14:59 5 mg ONCE STAT 03/17/19 DC 03/17/19 Levalbuterol INH 13:00 13:57 (Xopenex 03/17/19 13:08 Neb) Sodium 2,390 ml BOLUS OVER 2 03/17/19 DC 03/17/19 Chloride HOURS STAT 13:00 13:21 (NS) IV* 03/17/19 13:08 Ibuprofen 800 mg ONCE ONCE 03/17/19 DC 03/17/19 (Motrin) PO 14:30 14:16 03/17/19 14:31 Procedures/MDM EKG: Rate/Rhythm: Sinus tachycardia heart rate 130 with PVCs left posterior fascicular block QRS, ST, QT: NORMAL MD, QRS, QT] Impression: Abnormal EKG Patient: COLBY MURDOCK : 1990 Age: 28 Sex: M MR #: [id number] DOS: 03/17/19 1045 Ordering MD: YUDITH RAMÍREZ DO Location: E/R Room/Bed: PROCEDURE: XR Chest. CLINICAL INDICATION: chest pain TECHNIQUE: Single frontal view of the chest was obtained COMPARISON: None FINDINGS: The heart and mediastinum are within normal limits. There is a left-sided pacemaker in place. The patient is status post sternotomy and heart valve replacement. There are bilateral lower lobe infiltrates and atelectatic changes, left greater than right. There is no pleural effusion or pneumothorax. RPTAT: AA IMPRESSION: Bilateral lower lobe infiltrates and atelectatic changes, left greater than right. .Jewel Celeste MD, MD Date Time Electronically viewed and signed by .Jewel Celeste MD, MD on 03/17/2019 11:15 .S/ CC: YUDITH RAMÍREZ DO [id number] The patient developed a fever while he was in the ED. At that point I checked a lactic acid. It was elevated at 3.9. This may be due to methamphetamine abuse or sepsis. The patient did not meet sepsis criteria on arrival. This is why there may be a delay in cultures/IV fluids/antibiotics however once the lactic acid was discovered he was treated for sepsis. We will admit for bibasilar pneumonia and elevated lactic acid Admit MDM: Patient's infectious symptoms have not stabilized and the patient is at risk of rapid decompensation. The patient will be admitted for careful hydration, antibiotic therapy, and infectious source control. Severe Sepsis criteria: Infectious source: Pneumonia End organ damage indicated by: Elevated lactate Lactate > 2.0 mmol/L Hypotension (SBP < 90 or >40 mmHG drop or MAP < 65) Acute Resp Failure (sat < 92% w/o oxygen) Director Of Distance Learning > 2.0 INR > 1.5 Plt < 100 Bili > 2 Sepsis Management: Time of recognition of severe sepsis: At time of lactate Within 3 hours of recognition: Blood cultures x 2 before broad-spectrum antibiotics: yes 30 ml/kg NS bolus completed Initial lactate 3.9 Repeat lactate pending Septic Shock Assessment: Any lactic acid > 4.0 no Persistent hypotension (SBP < 90 or 40 mmHg drop, MAP < 65) despite 30 mL/kg IV fluid bolusno Persistent Hypotension Treatment: Comfort care no Hypotension caused by: pt. baseline, med-induced, erroneous value, condition other than infection no Refusal by patient/decision maker for: blood draw, IVF, Antibiotics, Pressorsno Central line Vasopressor started Norepinehrine I considered further perfusion assessment with CVP measurement, SCVO2, bedside ultrasound volume assessment, passive leg raise, trial of further fluid bolus a nd proceeded with. Accepting Care Team Current data and ongoing care discussed. Time: Admitting Physician: Mortar Maker(s): Outstanding Data: none Critical Care Time: 40minutes Treatments/Evaluations: Close monitoring and treatment of unstable vital signs, cardiorespiratory, and neurologic status, while maintaining tight balance of fluid, respiratory, and cardiac interventions. This includes the administration of emergency fluid management while maintaining close respiratory support as well as the provision of immediate and broad-spectrum antibiotic therapy, while performing a simultaneous assessment for possible sources in order to direct targeted therapy. This time includes discussing the case with the patient and the patient's family. This time also includes the consideration for invasive and chemical support to prevent cardiopulmonary collapse. This time does not include all procedures stated elsewhere in this record. This time also includes reviewing old records, labs and radiological studies. This time includes examining and re-examining the patient. Additionally, this time also includes arranging care with admitting and consulting physicians. Departure Diagnosis: Primary Impression: Bilateral pneumonia Pneumonia type: due to unspecified organism Lung location: lower lobe of lung Qualified Codes: J18.1 - Lobar pneumonia, unspecified organism Additional Impression: Sepsis Sepsis type: sepsis due to unspecified organism Qualified Codes: A41.9 - Sepsis, unspecified organism Condition: YUDITH RodriguezBhakti AMOS March 17, 2019 11:00
[2019-03-17] MEDS ORDERED: LORAZEPAM 2 MG INJ IV ONE ×2 (11:30→12:00)
[2019-03-17] MEDS ORDERED: HYDROmorphONE 0.5 MG/0.5 ML SYG IV STA (11:51)
[2019-03-17] MEDS ORDERED: CEFTRIAXONE 1 GM/50 ML (PMX) 50 ML IVPB ONE (12:00)
[2019-03-17] MEDS ORDERED: VANCOMYCIN 1 GM (PMX) 250 ML IVPB STA (13:00)
[2019-03-17] MEDS ORDERED: LEVALBUTEROL (NEB) 1.25 MG/0.5 ML AMP INH STA (13:00)
[2019-03-17] MEDS ORDERED: SODIUM CHLORIDE 0.9% 1L BAG IV* STA (13:00)
[2019-03-17] MEDS ORDERED: CEFEPIME 1GM/50 ML (PMX) 50 ML IVPB STA (13:00)
[2019-03-17] MEDS ORDERED: IBUPROFEN 800 MG TAB PO ONE (14:30)
[2019-03-17] MEDS ORDERED: NACL 0.9% 3 ML SYG IV SCH (15:00)
[2019-03-17] MEDS ORDERED: VANCOMYCIN IV PER PHARMACY XX SCH (15:00)
[2019-03-17] MEDS ORDERED: SOD CHLORIDE 0.9% 1,000 ML IV SCH (15:13)
[2019-03-17] MEDS: OXYCODONE/ACETAMINOPHEN (5/325) TAB PO PRN (15:27)
[2019-03-17] MEDS ORDERED: ACETAMINOPHEN 325 MG TAB PO PRN (15:30)
[2019-03-17] MEDS ORDERED: ONDANSETRON 4 MG INJ IV PRN (15:30)
--- NOTE | 2019-03-17 15:56 | HP ---
Date/Time of Note Date/Time of Note DATE: 03/17/19 TIME: 15:37 Assessment/Plan VTE Prophylaxis SCD applied (from Nsg): Yes Pharmacological prophylaxis: heparin Lines/Catheters IV Catheter Type (from Nrsg): Saline Lock Assessment/Plan Hospital Course 28 yo male with h/o valve replacements and PPM following endocarditis in 2017 (s pecifics unclear) who presents today with fever, tachypnea, and hypoxia with pulmonary infiltrates following IV meth use yesterday Acute hypoxic respiratory failure with fever/sepsis: - Clearly with pulmonic process which may be a severe pneumonia but also is concerning for perhaps septic emboli from right sided endocarditis given the clinical history - Will treat with broad spectrum abx for now - CT chest is pending - O2 as needed, bipap as needed, intubation as needed - TTE H/o valve replacements and PPM; - TTE is pending to assess for endocarditis - Cardiology consultation To ICU Result Diagram: 03/17/19 1045 03/17/19 1045 Results 24hrs Laboratory Tests Test 03/17/19 10:45 03/17/19 13:18 03/17/19 15:25 White Blood Count 8.8 Red Blood Count 4.31 L Hemoglobin 11.5 L Hematocrit 35.6 L Mean Corpuscular Volume 82.6 Mean Corpuscular Hemoglobin 26.7 L Mean Corpuscular Hemoglobin Concent 32.3 Red Cell Distribution Width 15.3 H Platelet Count 228 Mean Platelet Volume 9.2 Immature Granulocytes % 0.600 H Neutrophils % 89.1 H Lymphocytes % 7.6 L Monocytes % 1.9 Eosinophils % 0.5 Basophils % 0.3 Nucleated Red Blood Cells % 0.0 Immature Granulocytes # 0.050 H Neutrophils # 7.8 H Lymphocytes # 0.7 L Monocytes # 0.2 L Eosinophils # 0.0 Basophils # 0.0 Nucleated Red Blood Cells # 0.0 Sodium Level 136 Potassium Level 4.3 Chloride Level 105 Carbon Dioxide Level 18 L Anion Gap 13 Blood Urea Nitrogen 20 Creatinine 1.16 Est Glomerular Filtrat Rate mL/min > 60 Glucose Level 93 Calcium Level 9.0 Troponin I 0.081 POC Venous Lactate 3.9 *H 3.9 *H HPI/ROS Admit Date/Time Admit Date/Time Hx of Present Illness 28 yo male with h/o valve replacements (unclear exactly) for endocarditis in 2017, PPM who presents with chest pain and SOB Patient says he had two valves replaced at [facility] in 2017 following an episode of endocarditis, he is unable to provide further history on this. Unclear how he has been in the interim. Yesterday says he injected methamphatamine. Then today has developed pain in his L upper chest and worsening shortness of breath. Currently he is in respiratory distress and acutely ill, unable to provide further history. ROS Constitutional: no complaints, improved Eyes: no complaints ENT: no complaints Respiratory: no complaints Cardiovascular: no complaints Gastrointestinal: no complaints Genitourinary: no complaints Musculoskeletal: no complaints Skin: no complaints Neurologic: no complaints Endocrine: no complaints Lymphatic: no complaints Psychological: no complaints, nl mood/affect Immunologic: no complaints PMH/Family/Social Past Medical History IVDU Endocarditis Medications Current Medications IV Flush (NS 3 ml) 3 ml PER PROTOCOL IV ; Start 03/17/19 at 15:00 Oxycodone/ Acetaminophen (Percocet (5/ 325)) 2 tab Q6H PRN PO .SEVERE PAIN 7-10 Last administered on 03/17/19at 15:27; Admin Dose 2 TAB; Start 03/17/19 at 15:00 Vancomycin HCl (Vanco Iv Per Pharmacy) VANCOMYCIN PER PHARMACY PER PROTOCOL XX ; Start 03/17/19 at 15:00 Meropenem/Sodium Chloride 50 ml @ 100 mls/hr Q8 IVPB ; Start 03/17/19 at 22:00 Ondansetron HCl (Zofran Inj) 4 mg ER BRIDGE PRN IV NAUSEA/VOMITING; Start 03/17/19 at 15:30; Stop 03/18/19 at 15:29 Acetaminophen (Tylenol Tab) 650 mg ER BRIDGE PRN PO .MILD PAIN 1-3 OR TEMP; Start 03/17/19 at 15:30; Stop 03/18/19 at 15:29 Coded Allergies: No Known Allergy (Unverified , 03/17/19) Past Surgical History Valve repalcement Social History Alcohol Use: none Smoking Status: Current every day smoker Drug Use: none Exam/Review of Systems Vital Signs Vitals Vital Signs Date Temp Pulse Resp B/P (MAP) Pulse Ox O2 O2 Flow FiO2 Time Delivery Rate 03/17/19 103.0 116 30 143/96 96 Non 15.0 15:33 (112) Rebreathe r 5/13/19 21 13:58 Exam Exam Appears acutely ill In respiratory distress Tahcypneic, uncomfortable Lungs rhoncorous, mildly labored Tachy, regular, + diastolic murmur Abdomen soft ntd Ext warm wihtout edema ROBY MILLER MD March 17, 2019 15:50
[2019-03-17] MEDS ORDERED: IOHEXOL 300MG/ML 150 ML BTL ONE (15:57)
[2019-03-17] MEDS ORDERED: SOD CHLORIDE 0.9% 100 ML ONE (15:57)
--- NOTE | 2019-03-17 17:04 | RADRPT ---
Echocardiogram Report Patient Name: COLLETTE BOWMANPatient ID: [id number] : 1990 (28y 5m)Study Date: 03/17/2019 3:56:06 PM Gender: MAccession #: [id number] Tech: Ronni [facility] Location: [facility] Ref.Physician: ROBY MILLER Height(Cm): BSA: Weight(Kg): Quality: AdequateAccount #: Procedures: Echocardiographic Report: Transthoracic echocardiogram with complete 2D, M-Mode, and doppler examination. Indications: Endocarditis??? Measurements: 2D/M Mode Doppler Measurement Value Normal Range Measurement Value Normal Range LVIDd 2D 4.3 [ 4.2 - 5.8 ] cm AV Peak Gurinder 1.3 [ 100.0 - 170.0 ] cm/sec LVIDs 2D 2.9 [ 2.5 - 4.0 ] cm AV Peak PG 7.0 [ 2.0 - 9.0 ] mmHg LVPWd 2D 1.0 [ 0.6 - 1.0 ] cm LVOT Peak Gurinder 1.1 [ 70.0 - 110.0 ] cm/sec IVSd 2D 1.0 [ 0.6 - 1.0 ] cm LVOT Peak PG 5.0 [ 2.0 - 6.0 ] mmHg AoR Diam 2D 2.3 [ 2.6 - 3.4 ] cm MV E Peak Gurinder 1.3 [ 60.0 - 130.0 ] cm/sec EDV 2D 84.0 [ 62.0 - 150.0 ] ml MV Decel Time 88 [ 104 - 258 ] msec ESV 2D 31.7 [ 21.0 - 61.0 ] ml Lat E` Gurinder 0.1 [ 10.0 - 15.0 ] cm/sec EF 2D 62.3 [ 52.0 - 72.0 ] percent Lateral E/E` 10.1 [ 1.0 - 2.0 ] ratio LA Dimen 2D 3.7 [ 3.0 - 4.0 ] cm TR Peak Gurinder 3.1 [ 100.0 - 280.0 ] cm/sec TR Peak PG 38.0 mmHg RVSP 53.0 [ 10.0 - 36.0 ] mmHg Findings: Left Ventricle: Normal left ventricular cavity size. Normal left ventricular wall thickness. Moderate global left ventricular systolic dysfunction. Paradoxical septal motion consistent with IVCD or bundle branch block. Ejection fraction is visually estimated at 45 %. Tissue Doppler/Mitral Doppler indices are consistent with restrictive physiology with markedly elevated left atrial pressure (Stage III-IV diastolic dysfunction). Right Ventricle: Severe enlargement of right ventricle. Left Atrium: The left atrium is normal in size. Right Atrium: There is severe enlargement of right atrium. Mitral Valve: Mild mitral leaflet calcification. Mild mitral annular calcification. Trace mitral regurgitation. Aortic Valve: No hemodynamically significant aortic stenosis by doppler. Non coronary cusp appears moderately calcified. Trileaflet aortic valve. Tricuspid Valve: Estimated peak PA systolic pressure 53 mmHg. Tricuspid valve repair appears moderately thickened. There is moderate to severe tricuspid regurgitation. Possible echogenic structure is seen on the tricuspid valve with vegetation. Pericardium: Normal pericardium with no significant pericardial effusion. Aorta: Normal aortic root. IVC: Inferior vena cava without respiratory collapse, however, patient on ventilator. Conclusions: There is severe enlargement of right atrium. Severe enlargement of right ventricle. Normal left ventricular cavity size. Normal left ventricular wall thickness. Moderate global left ventricular systolic dysfunction. Paradoxical septal motion consistent with IVCD or bundle branch block. Ejection fraction is visually estimated at 45 %. Tissue Doppler/Mitral Doppler indices are consistent with restrictive physiology with markedly elevated left atrial pressure (Stage III-IV diastolic dysfunction). Mild mitral leaflet calcification. Mild mitral annular calcification. Trace mitral regurgitation. No hemodynamically significant aortic stenosis by doppler. Non coronary cusp appears moderately calcified. Trileaflet aortic valve. Estimated peak PA systolic pressure 53 mmHg. Tricuspid valve repair appears moderately thickened. There is moderate to severe tricuspid regurgitation. Possible echogenic structure is seen on the tricuspid valve with vegetation. Inferior vena cava without respiratory collapse, however, patient on ventilator. Electronically Signed By: Andrea Upton 2019-03-17 17:03:34 PDT
--- NOTE | 2019-03-17 19:49 | CONS ---
Assessment/Plan Assessment/Plan Hospital Course (Demo Recall) 1. History of tricuspid valve replacement for endocarditis 2. 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 Fever chills respiratory distress rule out endocarditis of tricuspid valve versus others 4. Pneumonia 5. Possible pulmonary emboli probably related related to septic emboli versus others . Respiratory distress 7. History of heart block status post permanent pacemaker Recommendations: Antibiotic management as per internal medicine. Continue with oxygen supplement. I have ordered a stat lower extremity ultrasound to rule out evidence of DVT Consider infectious disease as well as cardiac surgery consultation Continue with ICU care More than 42 min of critical care time was spent in management and treatment is critically ill patient excluding any procedures. Discussed the multiple physicians and staff as well Thank you for his referral. We will continue to follow along with you LON MENDOZA MD [facility]. Consultation Date/Type/Reason Admit Date/Time Date of Consultation: March 17, 2019 Type of Consult Cardiology Reason for Consultation S/P valve replacement Requesting Provider: ROBY MILLER MD Date/Time of Note DATE: 03/17/19 TIME: 19:42 Hx of Present Illness Interventional cardiology consultation note Chief complaint: Not feeling well shortness of breath fever Reason for consult: History of endocarditis and valve replacement History of present illness: Thank you for this referral. This is a 28-year-old gentleman with a history of what appears to be tricuspid valve replacement because of endocarditis, IV drug use who came to emergency room this morning because of not feeling well and fever. Patient states that he was in his usual state of health until yesterday. He apparently has used IV methamphetamine yesterday and today he was feeling as well and having fever and shortness of breath. Patient has been admitted to intensive care unit appears to be hypoxemic in respiratory distress Allergies: No known drug allergies Medications none Family history: No early coronary artery disease Social history: Smokes daily. Has been using drugs including IV methamphetamine Past medical history: History of endocarditis status post permanent pacemaker placement and appears to be tricuspid valve replacement Review of system: Patient denies all others except for above-mentioned Past Medical History Home Meds No Active Prescriptions or Reported Meds Medications Current Medications IV Flush (NS 3 ml) 3 ml PER PROTOCOL IV ; Start 03/17/19 at 15:00 Oxycodone/ Acetaminophen (Percocet (5/ 325)) 2 tab Q6H PRN PO .SEVERE PAIN 7-10 Last administered on 03/17/19at 15:27; Admin Dose 2 TAB; Start 03/17/19 at 15:00 Vancomycin HCl (Vanco Iv Per Pharmacy) VANCOMYCIN PER PHARMACY PER PROTOCOL XX ; Start 03/17/19 at 15:00 Ondansetron HCl (Zofran Inj) 4 mg ER BRIDGE PRN IV NAUSEA/VOMITING; Start 03/17/19 at 15:30; Stop 03/18/19 at 15:29 Acetaminophen (Tylenol Tab) 650 mg ER BRIDGE PRN PO .MILD PAIN 1-3 OR TEMP; Start 03/17/19 at 15:30; Stop 03/18/19 at 15:29 Meropenem/Sodium Chloride 50 ml @ 100 mls/hr Q8H IVPB ; Start 03/17/19 at 21:00 Vancomycin HCl 1.5 gm/Sodium Chloride 250 ml @ 83.333 mls/ hr Q12H IVPB ; Start 03/17/19 at 22:00 Allergies: Coded Allergies: No Known Allergy (Unverified , 03/17/19) Social History Alcohol Use: none Smoking Status: Current every day smoker Drug Use: none Exam/Review of Systems Vital Signs Vitals Vital Signs Date Temp Pulse Resp B/P (MAP) Pulse Ox O2 O2 Flow FiO2 Time Delivery Rate 03/17/19 97.4 125 31 103/82 97 Non 18:00 (89) Rebreather 03/17/19 15.0 100 17:33 Exam Exam General: Young gentleman appears to be toxic looking any distress HEENT: NC/AT. pupils are equal. round. NECK: no stridor. CV: Cardiac systolic murmur; no gallop or rubs. PULM: +rhonchi. + 2 through distress GI: SOFT, NT, ND, no rebound or guarding Extremity: trace B/L LE edema. no clubbing. neuro: awake and alert, OX3. Psych: Anxious rectal: deferred Echocardiogram was personally reviewed which showed: There is severe enlargement of right atrium. Severe enlargement of right ventricle. Normal left ventricular cavity size. Normal left ventricular wall thickness. Moderate global left ventricular systolic dysfunction. Paradoxical septal motion consistent with IVCD or bundle branch block. Ejection fraction is visually estimated at 45 %. Tissue Doppler/Mitral Doppler indices are consistent with restrictive physiology with markedly elevated left atrial pressure (Stage III-IV diastolic dysfunction). Mild mitral leaflet calcification. Mild mitral annular calcification. Trace mitral regurgitation. No hemodynamically significant aortic stenosis by doppler. Non coronary cusp appears moderately calcified. Trileaflet aortic valve. Estimated peak PA systolic pressure 53 mmHg. Tricuspid valve repair appears moderately thickened. There is moderate to severe tricuspid regurgitation. Possible echogenic structure is seen on the tricuspid valve with vegetation. Inferior vena cava without respiratory collapse, however, patient on ventilator. CT pulmonary angiogram done in the emergency room showed: Extremely limited evaluation of the segmental and subsegmental pulmonary arteries and lung parenchyma secondary to motion. Repeat exam can be considered. Potential nonocclusive filling defect in the right descending pulmonary artery, suggesting pulmonary embolus. Evaluation is suboptimal secondary to motion. Multiple prominent lymph nodes in the mediastinum. Etiology is uncertain. These could reflect reactive lymph nodes. Diffuse mild fat stranding of the mediastinal fat. Finding could reflect inflammation or potentially scarring from prior surgery. Extensive ground-glass opacities throughout both lungs. Findings suggest multifocal infection/inflammation. Atypical infection is not excluded. 4.3 cm ground-glass nodule in the superior segment of the right lower lobe and 1.5 cm subpleural ground-glass nodule in the posterior left upper lobe. These likely reflect inflammatory nodules. Close continued follow-up with repeat exam in 1 month to assess stability can be considered. 1.9 cm bleb or cavitation containing an 8 mm nodule versus nodular debris. Mycetoma is not excluded. A few additional scattered blebs or cavitations in the right upper lobe, right middle lobe and right lower lobe. Prominent appearance of a partially visualized liver and spleen. Findings could reflect hepatic splenomegaly of uncertain etiology. If further characterization is needed ultrasound or CT of the abdomen could be helpful. Labs Result Diagram: 03/17/19 1045 03/17/19 1045 Results 24hrs Laboratory Tests Test 03/17/19 10:45 03/17/19 13:18 03/17/19 15:25 03/17/19 17:33 White Blood Count 8.8 Red Blood Count 4.31 L Hemoglobin 11.5 L Hematocrit 35.6 L Mean Corpuscular 82.6 Volume Mean Corpuscular 26.7 L Hemoglobin Mean Corpuscular 32.3 Hemoglobin Concent Red Cell 15.3 H Distribution Width Platelet Count 228 Mean Platelet Volume 9.2 Immature 0.600 H Granulocytes % Neutrophils % 89.1 H Lymphocytes % 7.6 L Monocytes % 1.9 Eosinophils % 0.5 Basophils % 0.3 Nucleated Red Blood 0.0 Cells % Immature 0.050 H Granulocytes # Neutrophils # 7.8 H Lymphocytes # 0.7 L Monocytes # 0.2 L Eosinophils # 0.0 Basophils # 0.0 Nucleated Red Blood 0.0 Cells # Sodium Level 136 Potassium Level 4.3 Chloride Level 105 Carbon Dioxide Level 18 L Anion Gap 13 Blood Urea Nitrogen 20 Creatinine 1.16 Est Glomerular > 60 Filtrat Rate mL/min Glucose Level 93 Calcium Level 9.0 Troponin I 0.081 POC Venous Lactate 3.9 *H 3.9 *H Bedside Glucose 64 L Test 03/17/19 17:51 03/17/19 18:29 Bedside Glucose 68 L 74 Medications Medications Current Medications IV Flush (NS 3 ml) 3 ml PER PROTOCOL IV ; Start 03/17/19 at 15:00 Oxycodone/ Acetaminophen (Percocet (5/ 325)) 2 tab Q6H PRN PO .SEVERE PAIN 7-10 Last administered on 03/17/19at 15:27; Admin Dose 2 TAB; Start 03/17/19 at 15:00 Vancomycin HCl (Vanco Iv Per Pharmacy) VANCOMYCIN PER PHARMACY PER PROTOCOL XX ; Start 03/17/19 at 15:00 Ondansetron HCl (Zofran Inj) 4 mg ER BRIDGE PRN IV NAUSEA/VOMITING; Start 03/17/19 at 15:30; Stop 03/18/19 at 15:29 Acetaminophen (Tylenol Tab) 650 mg ER BRIDGE PRN PO .MILD PAIN 1-3 OR TEMP; Start 03/17/19 at 15:30; Stop 03/18/19 at 15:29 Meropenem/Sodium Chloride 50 ml @ 100 mls/hr Q8H IVPB ; Start 03/17/19 at 21:00 Vancomycin HCl 1.5 gm/Sodium Chloride 250 ml @ 83.333 mls/ hr Q12H IVPB ; Start 03/17/19 at 22:00 LON MENDOZA MD March 17, 2019 19:49
[2019-03-17] MEDS: MEROPENEM 1 GM/50ML(PMX) 50 ML IVPB SCH (20:49)
[2019-03-17] MEDS ORDERED: MEROPENEM 1 GM/50ML(PMX) 50 ML IVPB SCH (22:00)
[2019-03-17] MEDS ORDERED: VANCOMYCIN HCL 1.5 GM in SOD CHLORIDE 0.9% 250 ML IVPB SCH (22:00)
[2019-03-18] VITALS (24 sets, daily range): BP systolic 84–122; BP diastolic 62–83; PULSE 91–115; RESP 21–36
[2019-03-18] MEDS: MEROPENEM 1 GM/50ML(PMX) 50 ML IVPB SCH (04:39)
--- NOTE | 2019-03-18 08:38 | CONS ---
Consult Date/Type/Reason Admit Date/Time March 17, 2019 at 15:13 Initial Consult Date 03/17/19 Type of Consultation: cv Requesting Provider: ROBY MILLER MD Date/Time of Note DATE: 03/18/19 TIME: 08:33 Subjective Interventional cardiology follow-up progress note/critical care note Subjective: Discussed with the staff and telemetry was reviewed. Patient remains mostly in sinus tachycardia Discussed with physicians He complains of diffuse chest pain multiple areas of his chest both on the right and the left as well as abdomen complains of the pain. Pain appears to be worse with deep breathing then. Patient continues to be in respiratory distress and excised on oxygen. Objective: General: Young gentleman appears to be toxic looking any distress HEENT: NC/AT. pupils are equal. round. NECK: no stridor. CV: Cardiac systolic murmur; no gallop or rubs. PULM: +rhonchi. + 2 through distress GI: SOFT, NT, ND, no rebound or guarding Extremity: trace B/L LE edema. no clubbing. neuro: awake and alert, OX3. Psych: Anxious rectal: deferred Echocardiogram was personally reviewed which showed: There is severe enlargement of right atrium. Severe enlargement of right ventricle. Normal left ventricular cavity size. Normal left ventricular wall thickness. Moderate global left ventricular systolic dysfunction. Paradoxical septal motion consistent with IVCD or bundle branch block. Ejection fraction is visually estimated at 45 %. Tissue Doppler/Mitral Doppler indices are consistent with restrictive physiology with markedly elevated left atrial pressure (Stage III-IV diastolic dysfunction). Mild mitral leaflet calcification. Mild mitral annular calcification. Trace mitral regurgitation. No hemodynamically significant aortic stenosis by doppler. Non coronary cusp appears moderately calcified. Trileaflet aortic valve. Estimated peak PA systolic pressure 53 mmHg. Tricuspid valve repair appears moderately thickened. There is moderate to severe tricuspid regurgitation. Possible echogenic structure is seen on the tricuspid valve with vegetation. Inferior vena cava without respiratory collapse, however, patient on ventilator. CT pulmonary angiogram done in the emergency room showed: Extremely limited evaluation of the segmental and subsegmental pulmonary arteries and lung parenchyma secondary to motion. Repeat exam can be considered. Potential nonocclusive filling defect in the right descending pulmonary artery, suggesting pulmonary embolus. Evaluation is suboptimal secondary to motion. Multiple prominent lymph nodes in the mediastinum. Etiology is uncertain. These could reflect reactive lymph nodes. Diffuse mild fat stranding of the mediastinal fat. Finding could reflect inflammation or potentially scarring from prior surgery. Extensive ground-glass opacities throughout both lungs. Findings suggest multifocal infection/inflammation. Atypical infection is not excluded. 4.3 cm ground-glass nodule in the superior segment of the right lower lobe and 1.5 cm subpleural ground-glass nodule in the posterior left upper lobe. These likely reflect inflammatory nodules. Close continued follow-up with repeat exam in 1 month to assess stability can be considered. 1.9 cm bleb or cavitation containing an 8 mm nodule versus nodular debris. Mycetoma is not excluded. A few additional scattered blebs or cavitations in the right upper lobe, right middle lobe and right lower lobe. Prominent appearance of a partially visualized liver and spleen. Findings could reflect hepatic splenomegaly of uncertain etiology. If further characterization is needed ultrasound or CT of the abdomen could be helpful. Ultrasound lower extremity did not show any DVT Objective Vitals Vital Signs Date Temp Pulse Resp B/P (MAP) Pulse Ox O2 O2 Flow FiO2 Time Delivery Rate 03/18/19 104 26 95/83 (87) 98 Nasal 06:00 Cannula 03/18/19 6.0 05:45 03/18/19 97.6 04:00 03/17/19 100 17:33 Intake and Output 03/17/19 03/17/19 03/18/19 1515:00 23:00 07:00 IntakeIntake Total 350 ml 300 ml BalanceBalance 350 ml 300 ml Results/Medications Result Diagram: 03/18/19 0505 03/18/19 0505 Results 24 hrs Laboratory Tests Test 03/17/19 10:45 03/17/19 13:18 03/17/19 15:25 03/17/19 17:33 White Blood Count 8.8 Red Blood Count 4.31 L Hemoglobin 11.5 L Hematocrit 35.6 L Mean Corpuscular 82.6 Volume Mean Corpuscular 26.7 L Hemoglobin Mean Corpuscular 32.3 Hemoglobin Concen t Red Cell 15.3 H Distribution Width Platelet Count 228 Mean Platelet 9.2 Volume Immature 0.600 H Granulocytes % Neutrophils % 89.1 H Lymphocytes % 7.6 L Monocytes % 1.9 Eosinophils % 0.5 Basophils % 0.3 Nucleated Red 0.0 Blood Cells % Immature 0.050 H Granulocytes # Neutrophils # 7.8 H Lymphocytes # 0.7 L Monocytes # 0.2 L Eosinophils # 0.0 Basophils # 0.0 Nucleated Red 0.0 Blood Cells # Sodium Level 136 Potassium Level 4.3 Chloride Level 105 Carbon Dioxide 18 L Level Anion Gap 13 Blood Urea 20 Nitrogen Creatinine 1.16 Est Glomerular > 60 Filtrat Rate mL/min Glucose Level 93 Calcium Level 9.0 Troponin I 0.081 POC Venous 3.9 *H 3.9 *H Lactate Bedside Glucose 64 L Test 03/17/19 17:51 03/17/19 18:29 03/17/19 19:19 03/18/19 05:05 Bedside Glucose 68 L 74 Troponin I 0.416 *H 0.225 *H White Blood Count 17.1 #H Red Blood Count 4.50 L Hemoglobin 11.9 L Hematocrit 39.6 L Mean Corpuscular 88.0 Volume Mean Corpuscular 26.4 L Hemoglobin Mean Corpuscular 30.1 L Hemoglobin Concen t Red Cell 16.2 H Distribution Width Platelet Count 199 Mean Platelet 10.3 Volume Immature 0.900 H Granulocytes % Neutrophils % Lymphocytes % Monocytes % Eosinophils % Basophils % Nucleated Red 0.0 Blood Cells % Immature 0.150 H Granulocytes # Neutrophils # Lymphocytes # Monocytes # Eosinophils # Basophils # Nucleated Red Blood Cells # Sodium Level 138 Potassium Level 4.8 Chloride Level 107 Carbon Dioxide 14 L Level Anion Gap 17 H Blood Urea 32 #H Nitrogen Creatinine 2.48 #H Est Glomerular 31 L Filtrat Rate mL/min Glucose Level 89 Hemoglobin A1c 5.7 Calcium Level 8.3 L Total Bilirubin 0.9 Direct Bilirubin 0.20 Indirect 0.7 Bilirubin Aspartate Amino 136 H Transf (AST/SGOT) Alanine 36 Aminotransferase (ALT/SGPT) Alkaline 175 H Phosphatase Total Protein 8.9 H Albumin 3.5 Globulin 5.40 H Albumin/Globulin 0.64 Ratio Test 03/18/19 07:00 Blood Gas Blood arterial Specimen Source Arterial Blood 03/18/2019 6:53:3 Date Drawn 1 AM Arterial Blood pH 7.295 *L (Temp corrected) Arterial Blood 26.1 L pCO2 (Temp correct) Arterial Blood 77.4 L pO2 (Temp corrected) Arterial Blood 12.4 L HCO3 Arterial Blood -12.3 L Base Excess Arterial Blood 93.9 L Oxygen Saturation Yuri Test N/A Arterial Blood LB Gas Puncture Site Arterial 0.9 Blood Carboxyhemo globin Arterial Blood 0.3 Methemoglobin Blood Gas A-a O2 170.6 H Differential Oxyhemoglobin 92.8 L Percent Blood Gas 37.0 Temperature Blood Gas NASAL CANNULA Modality FiO2 39.0 Blood Gas MNGO RN Critical Value Read Back Blood Gas TM Notified Whom Blood Gas 03/18/2019 7:43:1 Notified Time 3 AM Home Meds No Active Prescriptions or Reported Meds Medications Current Medications IV Flush (NS 3 ml) 3 ml PER PROTOCOL IV ; Start 03/17/19 at 15:00 Oxycodone/ Acetaminophen (Percocet (5/ 325)) 2 tab Q6H PRN PO .SEVERE PAIN 7-10 Last administered on 03/17/19at 15:27; Admin Dose 2 TAB; Start 03/17/19 at 15:00 Vancomycin HCl (Vanco Iv Per Pharmacy) VANCOMYCIN PER PHARMACY PER PROTOCOL XX ; Start 03/17/19 at 15:00 Ondansetron HCl (Zofran Inj) 4 mg ER BRIDGE PRN IV NAUSEA/VOMITING; Start 03/17/19 at 15:30; Stop 03/18/19 at 15:29 Acetaminophen (Tylenol Tab) 650 mg ER BRIDGE PRN PO .MILD PAIN 1-3 OR TEMP; Start 03/17/19 at 15:30; Stop 03/18/19 at 15:29 Meropenem/Sodium Chloride 50 ml @ 100 mls/hr Q8H IVPB Last administered on 03/18/19at 04:39; Admin Dose 100 MLS/HR; Start 03/17/19 at 21:00 Vancomycin HCl 1.5 gm/Sodium Chloride 250 ml @ 83.333 mls/ hr Q24H IVPB ; Start 03/18/19 at 22:00 Assessment/Plan Hospital Course (Demo Recall) 1. History of tricuspid valve replacement for endocarditis 2. 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 Fever chills respiratory distress rule out endocarditis of tricuspid valve versus others 4. Pneumonia 5. Possible pulmonary emboli ? related to septic emboli versus others 6. Respiratory distress 7. History of heart block status post permanent pacemaker 8. Acute renal failure: Probably due to ATN 9. Mildly abnormal troponin secondary to above 10. Sepsis secondary to above Recommendations: Antibiotic management as per internal medicine. Continue with oxygen supplement. No evidence of DVT seen on the looks remedy ultrasound Recommend infectious disease as well as cardiac surgery and pulmonary consultation to assist in management Continue with ICU care More than 35 min of critical care time was spent in management and treatment is critically ill patient excluding any procedures. Discussed the multiple physicians and staff as well Thank you for his referral. We will continue to follow along with you LON MENDOZA MD [facility] LON MENDOZA MD March 18, 2019 08:38
[2019-03-18] MEDS: OXYCODONE/ACETAMINOPHEN (5/325) TAB PO PRN (09:22)
[2019-03-18] MEDS ORDERED: SOD CHLORIDE 0.9% 500 ML IV ONE (12:00)
[2019-03-18] MEDS ORDERED: IOHEXOL 14.3 MG(I)/ML (ADULT) BTL PO ONE (12:00)
[2019-03-18] MEDS: morphine 2 MG INJ IV PRN ×3 (14:33→22:26)
--- NOTE | 2019-03-18 15:24 | PN ---
Date/Time of Note Date/Time of Note DATE: 03/18/19 TIME: 15:20 Assessment/Plan VTE Prophylaxis Risk score (from Ns)>0 risk: 1 SCD applied (from Nsg): Yes Pharmacological prophylaxis: heparin Lines/Catheters IV Catheter Type (from Nrs): Peripheral IV Urinary Cath still in place: No Assessment/Plan Hospital Course EXAM: Uncomfortable appearing tachypneic Lungs clear Tachy, regular PPM No edema 28 yo male with h/o valve replacements and PPM following endocarditis in 2017 (specifics unclear) who presents today with fever, tachypnea, and hypoxia with pulmonary infiltrates following IV meth use yesterday Endocarditis: - 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 Cultures negative to date. Daily cultures. Dr Hastings consulted from ID. [place] from cardiology. Malemukulehr from CV surgery Acute hypoxic respiratory failure with fever/sepsis: - 2/2 pneumoina and septic embolus as seen on CT-A. Continue abx. Given septic embolus not VTE will not give anticoagulation - O2 as needed, bipap as needed CLAUDIA: - Likely from sepsis, perhaps immunologic phenomenon from endocarditis - Imaging pending - Urine studies - Fluid bolus empirically H/o valve replacements and PPM; - Stable Continue ICU Result Diagram: 03/18/19 0505 03/18/19 0505 Results 24hrs Laboratory Tests Test 03/17/19 15:25 03/17/19 17:33 03/17/19 17:51 03/17/19 18:29 POC Venous 3.9 *H Lactate Bedside Glucose 64 L 68 L 74 Test 03/17/19 19:19 03/18/19 05:05 03/18/19 07:00 03/18/19 13:50 Troponin I 0.416 *H 0.225 *H White Blood Count 17.1 #H Red Blood Count 4.50 L Hemoglobin 11.9 L Hematocrit 39.6 L Mean Corpuscular 88.0 Volume Mean Corpuscular 26.4 L Hemoglobin Mean Corpuscular 30.1 L Hemoglobin Concen t Red Cell 16.2 H Distribution Width Platelet Count 199 Mean Platelet 10.3 Volume Immature 0.900 H Granulocytes % Neutrophils % Segmented 35 L Neutrophils % (Manual) Band Neutrophils 59 H % (Manual) Lymphocytes % Lymphocytes % 2 L (Manual) Monocytes % Monocytes % 1 (Manual) Eosinophils % Basophils % Metamyelocytes % 3 H (manual) Nucleated Red 0.0 Blood Cells % Immature 0.150 H Granulocytes # Neutrophils # Neutrophils # 7.7 H (Manual) Band Neutrophils 10.0 H # Lymphocytes 0.3 L (Manual) Lymphocytes # Monocytes # Monocytes # 0.1 L (Manual) Eosinophils # Basophils # Metamyelocytes # 0.5 H Nucleated Red Blood Cells # Platelet Estimate NORMAL Polychromasia 1+ Hypochromasia 1+ Poikilocytosis 1+ Anisocytosis 1+ Microcytosis 1+ Macrocytosis 1+ Sodium Level 138 Potassium Level 4.8 Chloride Level 107 Carbon Dioxide 14 L Level Anion Gap 17 H Blood Urea 32 #H Nitrogen Creatinine 2.48 #H Est Glomerular 31 L Filtrat Rate mL/min Glucose Level 89 Hemoglobin A1c 5.7 Calcium Level 8.3 L Total Bilirubin 0.9 Direct Bilirubin 0.20 Indirect 0.7 Bilirubin Aspartate Amino 136 H Transf (AST/SGOT) Alanine 36 Aminotransferase (ALT/SGPT) Alkaline 175 H Phosphatase Total Protein 8.9 H Albumin 3.5 Globulin 5.40 H Albumin/Globulin 0.64 Ratio Blood Gas Blood arterial Specimen Source Arterial Blood 03/18/2019 6:53:3 Date Drawn 1 AM Arterial Blood pH 7.295 *L (Temp corrected) Arterial Blood 26.1 L pCO2 (Temp correct) Arterial Blood 77.4 L pO2 (Temp corrected) Arterial Blood 12.4 L HCO3 Arterial Blood -12.3 L Base Excess Arterial Blood 93.9 L Oxygen Saturation Yuri Test N/A Arterial Blood LB Gas Puncture Site Arterial 0.9 Blood Carboxyhemo globin Arterial Blood 0.3 Methemoglobin Blood Gas A-a O2 170.6 H Differential Oxyhemoglobin 92.8 L Percent Blood Gas 37.0 Temperature Blood Gas NASAL CANNULA Modality FiO2 39.0 Blood Gas MNGO RN Critical Value Read Back Blood Gas TM Notified Whom Blood Gas 03/18/2019 7:43:1 Notified Time 3 AM Urine Color LEA Urine Clarity CLOUDY A Urine pH 5.0 Urine Specific 1.041 H [place] Urine Ketones NEGATIVE Urine Nitrite NEGATIVE Urine Bilirubin NEGATIVE Urine 1+ H Urobilinogen Urine Leukocyte TRACE A Esterase Urine Microscopic 34 H RBC Urine Microscopic 13 H WBC Urine Squamous FEW Epithelial Cells Urine Mucus FEW A Urine Hemoglobin 3+ H Urine Random 170.74 Creatinine Urine Random 17 L Sodium Urine Glucose NEGATIVE Urine Total 3+ H Protein Subjective 24 Hr Interval Summary Free Text/Dictation Patient was continued severe pleuritic pain, hypoxia TTE showing vegetation of prosthetic triscuspid valve Exam/Review of Systems Exam Vitals Vital Signs Date Temp Pulse Resp B/P (MAP) Pulse Ox O2 O2 Flow FiO2 Time Delivery Rate 03/18/19 107 12:00 03/18/19 35 107/77 95 Nasal 4.0 09:00 (87) Cannula 03/18/19 97.5 08:00 03/17/19 100 17:33 Intake and Output 03/17/19 03/17/19 03/18/19 1515:00 23:00 07:00 IntakeIntake Total 350 ml 300 ml BalanceBalance 350 ml 300 ml Results Results 24hrs Laboratory Tests Test 03/17/19 15:25 03/17/19 17:33 03/17/19 17:51 03/17/19 18:29 POC Venous 3.9 *H Lactate Bedside Glucose 64 L 68 L 74 Test 03/17/19 19:19 03/18/19 05:05 03/18/19 07:00 03/18/19 13:50 Troponin I 0.416 *H 0.225 *H White Blood Count 17.1 #H Red Blood Count 4.50 L Hemoglobin 11.9 L Hematocrit 39.6 L Mean Corpuscular 88.0 Volume Mean Corpuscular 26.4 L Hemoglobin Mean Corpuscular 30.1 L Hemoglobin Concen t Red Cell 16.2 H Distribution Width Platelet Count 199 Mean Platelet 10.3 Volume Immature 0.900 H Granulocytes % Neutrophils % Segmented 35 L Neutrophils % (Manual) Band Neutrophils 59 H % (Manual) Lymphocytes % Lymphocytes % 2 L (Manual) Monocytes % Monocytes % 1 (Manual) Eosinophils % Basophils % Metamyelocytes % 3 H (manual) Nucleated Red 0.0 Blood Cells % Immature 0.150 H Granulocytes # Neutrophils # Neutrophils # 7.7 H (Manual) Band Neutrophils 10.0 H # Lymphocytes 0.3 L (Manual) Lymphocytes # Monocytes # Monocytes # 0.1 L (Manual) Eosinophils # Basophils # Metamyelocytes # 0.5 H Nucleated Red Blood Cells # Platelet Estimate NORMAL Polychromasia 1+ Hypochromasia 1+ Poikilocytosis 1+ Anisocytosis 1+ Microcytosis 1+ Macrocytosis 1+ Sodium Level 138 Potassium Level 4.8 Chloride Level 107 Carbon Dioxide 14 L Level Anion Gap 17 H Blood Urea 32 #H Nitrogen Creatinine 2.48 #H Est Glomerular 31 L Filtrat Rate mL/min Glucose Level 89 Hemoglobin A1c 5.7 Calcium Level 8.3 L Total Bilirubin 0.9 Direct Bilirubin 0.20 Indirect 0.7 Bilirubin Aspartate Amino 136 H Transf (AST/SGOT) Alanine 36 Aminotransferase (ALT/SGPT) Alkaline 175 H Phosphatase Total Protein 8.9 H Albumin 3.5 Globulin 5.40 H Albumin/Globulin 0.64 Ratio Blood Gas Blood arterial Specimen Source Arterial Blood 03/18/2019 6:53:3 Date Drawn 1 AM Arterial Blood pH 7.295 *L (Temp corrected) Arterial Blood 26.1 L pCO2 (Temp correct) Arterial Blood 77.4 L pO2 (Temp corrected) Arterial Blood 12.4 L HCO3 Arterial Blood -12.3 L Base Excess Arterial Blood 93.9 L Oxygen Saturation Yuri Test N/A Arterial Blood LB Gas Puncture Site Arterial 0.9 Blood Carboxyhemo globin Arterial Blood 0.3 Methemoglobin Blood Gas A-a O2 170.6 H Differential Oxyhemoglobin 92.8 L Percent Blood Gas 37.0 Temperature Blood Gas NASAL CANNULA Modality FiO2 39.0 Blood Gas MNGO RN Critical Value Read Back Blood Gas TM Notified Whom Blood Gas 03/18/2019 7:43:1 Notified Time 3 AM Urine Color LEA Urine Clarity CLOUDY A Urine pH 5.0 Urine Specific 1.041 H [place] Urine Ketones NEGATIVE Urine Nitrite NEGATIVE Urine Bilirubin NEGATIVE Urine 1+ H Urobilinogen Urine Leukocyte TRACE A Esterase Urine Microscopic 34 H RBC Urine Microscopic 13 H WBC Urine Squamous FEW Epithelial Cells Urine Mucus FEW A Urine Hemoglobin 3+ H Urine Random 170.74 Creatinine Urine Random 17 L Sodium Urine Glucose NEGATIVE Urine Total 3+ H Protein Medications Medication Current Medications IV Flush (NS 3 ml) 3 ml PER PROTOCOL IV ; Start 03/17/19 at 15:00 Oxycodone/ Acetaminophen (Percocet (5/ 325)) 2 tab Q6H PRN PO .SEVERE PAIN 7-10 Last administered on 03/18/19at 09:22; Admin Dose 2 TAB; Start 03/17/19 at 15:00 Vancomycin HCl (Vanco Iv Per Pharmacy) VANCOMYCIN PER PHARMACY PER PROTOCOL XX ; Start 03/17/19 at 15:00 Vancomycin HCl 1.5 gm/Sodium Chloride 250 ml @ 83.333 mls/ hr Q24H IVPB ; Start 03/18/19 at 22:00 Morphine Sulfate (morphine) 2 mg Q4H PRN IV SEVERE PAIN LEVEL 7-10 Last administered on 03/18/19at 14:33; Admin Dose 2 MG; Start 03/18/19 at 12:00 Piperacillin Sod/ Tazobactam Sod 100 ml @ 200 mls/hr Q6 IVPB ; Start 03/18/19 at 18:00 Enoxaparin Sodium (Lovenox) 40 mg DAILY SC ; Start 03/18/19 at 15:30 ROBY MILLER MD March 18, 2019 15:24
--- NOTE | 2019-03-18 16:02 | CONS ---
DATE OF ADMISSION: 03/17/2019 DATE OF CONSULTATION: 03/18/2019 TYPE OF CONSULTATION: Nephrology. REASON FOR CONSULTATION: Acute kidney injury. PHYSICIAN REQUESTING CONSULT: Alphonso Dodd MD HISTORY OF PRESENT ILLNESS: This is a 28-year-old male with a past medical history of endocarditis s econdary to IV drug use, status post open heart surgery and valve replacement, history of active IV d rug abuse, who presented to [facility] after complaint of chest pain. The patient states that one day prior to admission, he took methamphetamine and he started developing substernal chest pain. As a result, he came to the emergency room. Upon arrival, the patient had a chest x-ray which showed evidence of bilateral pneumonia. The patient on admission also had a CT angio which sh owed findings of prominent lymph nodes, ground glass opacity throughout both lungs consistent with in fection and inflammation. The patient was also noted to have possible cavitation of . The marybeth ent was admitted to intensive care unit and was placed on IV antibiotics. In terms of patient's renal history on admission, the patient was noted to have creatinine of 1.16 mg /dL. The patient's creatinine has increased to 2.48 mg/dL. The patient was recently exposed to cont rast. The patient was also noted to be hypotensive during this time. There were no reports of hemop tysis, hematemesis or hematochezia. PAST MEDICAL HISTORY: History of endocarditis, history of pericarditis. PAST SURGICAL HISTORY: Status post valve replacement. FAMILY HISTORY: No family history of kidney disease. SOCIAL HISTORY: Positive for IV drug use, methamphetamine use. ALLERGIES: NO KNOWN DRUG ALLERGIES. MEDICATIONS: Have been reviewed. REVIEW OF SYSTEMS: A 14-point review of systems was conducted. Pertinent positives as stated in the HPI, otherwise negative. PHYSICAL EXAMINATION: VITAL SIGNS: Blood pressure is 107/77, respirations 35, pulse 112, temperature 97.5. HEENT: Head is normocephalic. NECK: Supple. HEART: Tachycardic. Positive murmur. LUNGS: Show diminished breath sounds at base. ABDOMEN: Soft, nontender to palpation. No rebound or guarding. EXTREMITIES: No clubbing, cyanosis. Trace edema. DERMATOLOGIC: No rashes. MUSCULOSKELETAL: No joint effusion. NEUROLOGIC: No change in exam. LABORATORY DATA: Have been reviewed. IMAGING STUDIES: Have been reviewed. ASSESSMENT AND PLAN: This is a 28-year-old male who presents with: 1. Nonoliguric acute kidney injury with a previous baseline creatinine of 1.16 mg/dL. Etiology of a cute kidney injury is likely secondary to acute tubular necrosis due to contrast-associated nephropat hy, hemodynamics. The patient's initial urinalysis does show evidence of pyuria and hematuria. The possibility of interstitial nephritis is a consideration. Other possibilities such as nephrotoxin, t ubular injury are also considerations. Plan at this point is to do a full evaluation. We will check a renal ultrasound. We will repeat UA with microanalysis. We will check urine electrolytes. I agr ee with fluid challenge. We will continue IV bolus and start patient on maintenance IV fluids. We w ill otherwise continue current treatment plan, supportive care, renally dose all meds. Please note t hat we would discontinue any NSAIDs at this time. 2. Anemia. Monitor hemoglobin and hematocrit levels. 3. Mineral bone disorder. Monitor calcium and phosphorus level. 4. Acute hypoxemic respiratory failure. Etiology is secondary to pneumonia. Questionable septic em boli. Continue current medical management. Continue supplemental oxygen, nebulizer, antibiotic ther apy and pulmonary evaluation. 5. 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 Continue to monitor. Follow u p with cardiology. Follow up 2D echo. 6. Elevated troponin, questionable non-ST elevation myocardial infarction type 1 versus type 2. Con tinue to monitor. Follow up with cardiology. 7. Questionable septic emboli. As stated above, continue medical management. Continue antibiotic t herapy and monitor closely. 8. History of arrhythmia, status post pacemaker placement. Thank you, Dr. Dodd, for this interesting consult. It will be a pleasure to follow patient with y ou throughout the hospital course. Dictated By: ELSIE CHRISTENSEN DO NR/NTS Conf#: [id number] DID#: [id number] CC: LON MENDOZA MD; ALPHONSO DODD MD;*End*
[2019-03-18] MEDS: PIPER-TAZO 3.375 GM IV (PMX) 100 ML IVPB SCH ×2 (18:34→23:37)
[2019-03-18] MEDS: ENOXAPARIN 40 MG/0.4 ML SYG SC SCH (18:40)
[2019-03-18] MEDS ORDERED: SOD CHLORIDE 0.9% 1,000 ML IV SCH (19:30)
[2019-03-18] MEDS ORDERED: VANCOMYCIN HCL 1.5 GM in SOD CHLORIDE 0.9% 250 ML IVPB SCH (22:00)
[2019-03-19] VITALS (20 sets, daily range): BP systolic 97–123; BP diastolic 54–82; PULSE 96–109; RESP 21–34
[2019-03-19] MEDS: PIPER-TAZO 3.375 GM IV (PMX) 100 ML IVPB SCH ×3 (06:24→21:03)
[2019-03-19] MEDS: morphine 2 MG INJ IV PRN ×4 (06:25→21:55)
--- NOTE | 2019-03-19 07:01 | CONS ---
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 usual suspect in IVDA is staph or strep but pseudomonas and benjamin can also be seen continue with vanco/zosyn at present fevers have improved and WBC is improved today I will order WBC scan as pt c/o pain over the pacer site I will also order u/s of pacer site to see if there is fluid present 2) IVDA pt states he was tested in the last 1-2 months and was neg for HIV and he does not share his needles no hx of hepatitis either I will check into his prior hospitalization here that if it exists is under another MR# 3) pulmonary infiltrates PACS system is not working on two different computers, I need to see his CT's and CXR to see if these are c/w septic emboli or not vanco/zosyn should cover if he has pneumonia rather than septic emboli procalcitonin has been ordered also Consultation Date/Type/Reason Admit Date/Time March 17, 2019 at 15:13 Date of Consultation: March 19, 2019 Type of Consult ID Date/Time of Note DATE: 03/19/19 TIME: 06:51 Hx of Present Illness pt reports he developed within one day of using IV meth he developed pain over his pacer site, non productive cough and mid chest pain he developed his fevers after his admission to hospital. No N, V, D he states he is homeless and has not eaten much lately and that he does not share his needles. he states he was at [facility] 1-2 months ago and his HIV test was negative no rashes, joint swellings but he noticed his toes were bluish [employer]. no dysuria. Past Medical History Home Meds No Active Prescriptions or Reported Meds Medications Current Medications IV Flush (NS 3 ml) 3 ml PER PROTOCOL IV ; Start 03/17/19 at 15:00 Oxycodone/ Acetaminophen (Percocet (5/ 325)) 2 tab Q6H PRN PO .SEVERE PAIN 7-10 Last administered on 03/18/19at 09:22; Admin Dose 2 TAB; Start 03/17/19 at 15:00 Vancomycin HCl (Vanco Iv Per Pharmacy) VANCOMYCIN PER PHARMACY PER PROTOCOL XX ; Start 03/17/19 at 15:00 Vancomycin HCl 1.5 gm/Sodium Chloride 250 ml @ 83.333 mls/ hr Q24H IVPB Last administered on 03/18/19at 22:25; Admin Dose 83.333 MLS/HR; Start 03/18/19 at 22:00 Morphine Sulfate (morphine) 2 mg Q4H PRN IV SEVERE PAIN LEVEL 7-10 Last administered on 03/19/19at 06:25; Admin Dose 2 MG; Start 03/18/19 at 12:00 Piperacillin Sod/ Tazobactam Sod 100 ml @ 200 mls/hr Q6 IVPB Last administered on 03/19/19at 06:24; Admin Dose 200 MLS/HR; Start 03/18/19 at 18:00 Enoxaparin Sodium (Lovenox) 40 mg DAILY SC Last administered on 03/18/19 18:40; Admin Dose 40 MG; Start 03/18/19 at 15:30 Sodium Chloride 1,000 ml @ 50 mls/hr Q20H IV Last administered on 03/18/19at 20:07; Admin Dose 50 MLS/HR; Start 03/18/19 at 19:30 Allergies: Coded Allergies: No Known Allergy (Unverified , 03/17/19) Past Surgical History pacemaker and TV repair Social History Alcohol Use: none Smoking Status: Current every day smoker Drug Use: none Exam/Review of Systems Exam Vitals Vital Signs Date Temp Pulse Resp B/P (MAP) Pulse Ox O2 O2 Flow FiO2 Time Delivery Rate 03/19/19 107 34 112/54 92 Nasal 6.0 06:00 (73) Cannula 03/19/19 98.4 04:00 03/17/19 100 17:33 Intake and Output 03/18/19 03/18/19 03/19/19 1515:00 23:00 07:00 IntakeIntake Total 980 ml 1383.333 ml 267.333 ml OutputOutput Total 425 ml BalanceBalance 555 ml 1383.333 ml 267.333 ml Constitutional: alert, oriented Eyes: nl sclera ENMT: mucosa pink and moist Respiratory: clear to auscultation Cardiovascular: regular rate and rhythm Gastrointestinal: soft, non-tender Extremities: other (no petecchiae, janeway lessions, splinter hemorrhages ) Neurological: other (non focal) Results Result Diagram: 03/19/19 0445 03/19/19 0445 Results 24hrs Laboratory Tests Test 03/18/19 07:00 03/18/19 13:50 03/19/19 04:45 Blood Gas Specimen Source Blood arterial Arterial Blood Date Drawn 03/18/2019 6:53:31 AM Arterial Blood pH 7.295 *L (Temp corrected) Arterial Blood pCO2 26.1 L (Temp correct) Arterial Blood pO2 77.4 L (Temp corrected) Arterial Blood HCO3 12.4 L Arterial Blood Base Excess -12.3 L Arterial Blood 93.9 L Oxygen Saturation Yuri Test N/A Arterial Blood Gas LB Puncture Site Arterial 0.9 Blood Carboxyhemoglobin Arterial Blood Methemoglobin 0.3 Blood Gas A-a O2 170.6 H Differential Oxyhemoglobin Percent 92.8 L Blood Gas Temperature 37.0 Blood Gas Modality NASAL CANNULA FiO2 39.0 Blood Gas Critical Value MNGO RN Read Back Blood Gas Notified Whom TM Blood Gas Notified Time 03/18/2019 7:43:13 AM Urine Color LEA Urine Clarity CLOUDY A Urine pH 5.0 Urine Specific [place] 1.041 H Urine Ketones NEGATIVE Urine Nitrite NEGATIVE Urine Bilirubin NEGATIVE Urine Urobilinogen 1+ H Urine Leukocyte Esterase TRACE A Urine Microscopic RBC 34 H Urine Microscopic WBC 13 H Urine Squamous FEW Epithelial Cells Urine Mucus FEW A Urine Hemoglobin 3+ H Urine Random Creatinine 170.31 Urine Random Sodium 17 L Urine Glucose NEGATIVE Urine Total Protein 532.0 H White Blood Count 13.9 H Red Blood Count 4.06 L Hemoglobin 10.8 L Hematocrit 34.6 L Mean Corpuscular Volume 85.2 Mean Corpuscular Hemoglobin 26.6 L Mean Corpuscular 31.2 L Hemoglobin Concent Red Cell Distribution Width 15.9 H Platelet Count 165 Mean Platelet Volume 10.5 H Immature Granulocytes % 6.800 H Neutrophils % 74.6 Lymphocytes % 7.1 L Monocytes % 3.3 Eosinophils % 7.6 H Basophils % 0.6 Nucleated Red Blood Cells % 0.0 Immature Granulocytes # 0.940 H Neutrophils # 10.4 H Lymphocytes # 1.0 Monocytes # 0.5 Eosinophils # 1.1 H Basophils # 0.1 Nucleated Red Blood Cells # 0.0 Sodium Level 134 L Potassium Level 5.1 Chloride Level 105 Carbon Dioxide Level 17 L Anion Gap 12 Blood Urea Nitrogen 51 H Creatinine 3.04 H Est Glomerular Filtrat 24 L Rate mL/min Glucose Level 87 Calcium Level 7.6 L Phosphorus Level 6.2 H Magnesium Level 1.7 Medications Medication Current Medications IV Flush (NS 3 ml) 3 ml PER PROTOCOL IV ; Start 03/17/19 at 15:00 Oxycodone/ Acetaminophen (Percocet (5/ 325)) 2 tab Q6H PRN PO .SEVERE PAIN 7-10 Last administered on 03/18/19 09:22; Admin Dose 2 TAB; Start 03/17/19 at 15:00 Vancomycin HCl (Vanco Iv Per Pharmacy) VANCOMYCIN PER PHARMACY PER PROTOCOL XX ; Start 03/17/19 at 15:00 Vancomycin HCl 1.5 gm/Sodium Chloride 250 ml @ 83.333 mls/ hr Q24H IVPB Last administered on 03/18/19 22:25; Admin Dose 83.333 MLS/HR; Start 03/18/19 at 22:00 Morphine Sulfate (morphine) 2 mg Q4H PRN IV SEVERE PAIN LEVEL 7-10 Last administered on 03/19/19 06:25; Admin Dose 2 MG; Start 03/18/19 at 12:00 Piperacillin Sod/ Tazobactam Sod 100 ml @ 200 mls/hr Q6 IVPB Last administered on 03/19/19 06:24; Admin Dose 200 MLS/HR; Start 03/18/19 at 18:00 Enoxaparin Sodium (Lovenox) 40 mg DAILY SC Last administered on 03/18/19 18:40; Admin Dose 40 MG; Start 03/18/19 at 15:30 Sodium Chloride 1,000 ml @ 50 mls/hr Q20H IV Last administered on 03/18/19 20:07; Admin Dose 50 MLS/HR; Start 03/18/19 at 19:30 JANETH LOGAN MD March 19, 2019 07:01
[2019-03-19] MEDS ORDERED: FUROSEMIDE 40 MG INJ IV ONE (08:00)
--- NOTE | 2019-03-19 08:31 | CONS ---
Consult Date/Type/Reason Admit Date/Time March 17, 2019 at 15:13 Initial Consult Date 03/17/19 Type of Consultation: cv Requesting Provider: ROBY MLILER MD Date/Time of Note DATE: 03/19/19 TIME: 08:29 Subjective Interventional cardiology follow-up progress note/critical care note Subjective: Discussed with the staff and telemetry was reviewed. Patient remains in /NSR/sinus tachycardia Discussed with physicians He complains of diffuse chest pain multiple areas of his chest both on the right and the left as well as abdomen complains of the pain. Pain appears to be worse with deep breathing then. Patient continues to be in respiratory distress and in on oxygen but less now . pt with reported hemoptysis as well Objective: General: Young gentleman appears to be toxic looking any distress HEENT: NC/AT. pupils are equal. round. NECK: no stridor. CV: tachycardiac systolic murmur; no gallop or rubs. PULM: +rhonchi. + 2 through distress GI: SOFT, NT, ND, no rebound or guarding Extremity: trace B/L LE edema. no clubbing. neuro: awake and alert, OX3. Psych: Anxious rectal: deferred Echocardiogram was personally reviewed which showed: There is severe enlargement of right atrium. Severe enlargement of right ventricle. Normal left ventricular cavity size. Normal left ventricular wall thickness. Moderate global left ventricular systolic dysfunction. Paradoxical septal motion consistent with IVCD or bundle branch block. Ejection fraction is visually estimated at 45 %. Tissue Doppler/Mitral Doppler indices are consistent with restrictive physiology with markedly elevated left atrial pressure (Stage III-IV diastolic dysfunction). Mild mitral leaflet calcification. Mild mitral annular calcification. Trace mitral regurgitation. No hemodynamically significant aortic stenosis by doppler. Non coronary cusp appears moderately calcified. Trileaflet aortic valve. Estimated peak PA systolic pressure 53 mmHg. Tricuspid valve repair appears moderately thickened. There is moderate to severe tricuspid regurgitation. Possible echogenic structure is seen on the tricuspid valve with vegetation. Inferior vena cava without respiratory collapse, however, patient on ventilator. CT pulmonary angiogram done in the emergency room showed: Extremely limited evaluation of the segmental and subsegmental pulmonary arteries and lung parenchyma secondary to motion. Repeat exam can be considered. Potential nonocclusive filling defect in the right descending pulmonary artery, suggesting pulmonary embolus. Evaluation is suboptimal secondary to motion. Multiple prominent lymph nodes in the mediastinum. Etiology is uncertain. These could reflect reactive lymph nodes. Diffuse mild fat stranding of the mediastinal fat. Finding could reflect inflammation or potentially scarring from prior surgery. Extensive ground-glass opacities throughout both lungs. Findings suggest multifocal infection/inflammation. Atypical infection is not excluded. 4.3 cm ground-glass nodule in the superior segment of the right lower lobe and 1.5 cm subpleural ground-glass nodule in the posterior left upper lobe. These likely reflect inflammatory nodules. Close continued follow-up with repeat exam in 1 month to assess stability can be considered. 1.9 cm bleb or cavitation containing an 8 mm nodule versus nodular debris. Mycetoma is not excluded. A few additional scattered blebs or cavitations in the right upper lobe, right middle lobe and right lower lobe. Prominent appearance of a partially visualized liver and spleen. Findings could reflect hepatic splenomegaly of uncertain etiology. If further characterization is needed ultrasound or CT of the abdomen could be helpful. Ultrasound lower extremity did not show any DVT Objective Vitals Vital Signs Date Temp Pulse Resp B/P (MAP) Pulse Ox O2 O2 Flow FiO2 Time Delivery Rate 03/19/19 107 34 112/54 92 Nasal 6.0 06:00 (73) Cannula 03/19/19 98.4 04:00 03/17/19 100 17:33 Intake and Output 03/18/19 03/18/19 03/19/19 1515:00 23:00 07:00 IntakeIntake Total 980 ml 1383.333 ml 267.333 ml OutputOutput Total 425 ml BalanceBalance 555 ml 1383.333 ml 267.333 ml Results/Medications Result Diagram: 03/19/19 0445 03/19/19 0445 Results 24 hrs Laboratory Tests Test 03/18/19 13:50 03/19/19 04:45 Urine Color LEA Urine Clarity CLOUDY A Urine pH 5.0 Urine Specific [place] 1.041 H Urine Ketones NEGATIVE Urine Nitrite NEGATIVE Urine Bilirubin NEGATIVE Urine Urobilinogen 1+ H Urine Leukocyte Esterase TRACE A Urine Microscopic RBC 34 H Urine Microscopic WBC 13 H Urine Squamous Epithelial Cells FEW Urine Mucus FEW A Urine Hemoglobin 3+ H Urine Random Creatinine 170.31 Urine Random Sodium 17 L Urine Glucose NEGATIVE Urine Total Protein 532.0 H White Blood Count 13.9 H Red Blood Count 4.06 L Hemoglobin 10.8 L Hematocrit 34.6 L Mean Corpuscular Volume 85.2 Mean Corpuscular Hemoglobin 26.6 L Mean Corpuscular Hemoglobin Concent 31.2 L Red Cell Distribution Width 15.9 H Platelet Count 165 Mean Platelet Volume 10.5 H Immature Granulocytes % 6.800 H Neutrophils % 74.6 Lymphocytes % 7.1 L Monocytes % 3.3 Eosinophils % 7.6 H Basophils % 0.6 Nucleated Red Blood Cells % 0.0 Immature Granulocytes # 0.940 H Neutrophils # 10.4 H Lymphocytes # 1.0 Monocytes # 0.5 Eosinophils # 1.1 H Basophils # 0.1 Nucleated Red Blood Cells # 0.0 Sodium Level 134 L Potassium Level 5.1 Chloride Level 105 Carbon Dioxide Level 17 L Anion Gap 12 Blood Urea Nitrogen 51 H Creatinine 3.04 H Est Glomerular Filtrat Rate mL/min 24 L Glucose Level 87 Calcium Level 7.6 L Phosphorus Level 6.2 H Magnesium Level 1.7 Home Meds No Active Prescriptions or Reported Meds Medications Current Medications IV Flush (NS 3 ml) 3 ml PER PROTOCOL IV ; Start 03/17/19 at 15:00 Oxycodone/ Acetaminophen (Percocet (5/ 325)) 2 tab Q6H PRN PO .SEVERE PAIN 7-10 Last administered on 03/18/19at 09:22; Admin Dose 2 TAB; Start 03/17/19 at 15:00 Vancomycin HCl (Vanco Iv Per Pharmacy) VANCOMYCIN PER PHARMACY PER PROTOCOL XX ; Start 03/17/19 at 15:00 Vancomycin HCl 1.5 gm/Sodium Chloride 250 ml @ 83.333 mls/ hr Q24H IVPB Last administered on 03/18/19at 22:25; Admin Dose 83.333 MLS/HR; Start 03/18/19 at 22:00 Morphine Sulfate (morphine) 2 mg Q4H PRN IV SEVERE PAIN LEVEL 7-10 Last administered on 03/19/19at 06:25; Admin Dose 2 MG; Start 03/18/19 at 12:00 Enoxaparin Sodium (Lovenox) 40 mg DAILY SC Last administered on 03/18/19at 18:40; Admin Dose 40 MG; Start 03/18/19 at 15:30 Piperacillin Sod/ Tazobactam Sod 100 ml @ 200 mls/hr Q8 IVPB ; Start 03/19/19 at 14:00 Assessment/Plan Hospital Course (Demo Recall) 1. History of tricuspid valve replacement for endocarditis 2. 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 Fever chills respiratory distress rule out endocarditis of tricuspid valve versus others 4. Pneumonia 5. Possible pulmonary emboli ? related to septic emboli versus others 6. Respiratory distress 7. History of heart block status post permanent pacemaker 8. Acute renal failure: Probably due to ATN 9. Mildly abnormal troponin secondary to above 10. Sepsis secondary to above Recommendations: Antibiotic management as per internal medicine and ID rec Continue with oxygen supplement. No evidence of DVT seen on the looks remedy ultrasound Recommend cardiac surgery and pulmonary consultation to assist in management Continue with ICU care More than 32 min of critical care time was spent in management and treatment is critically ill patient excluding any procedures. Discussed the multiple physicians and staff as well Thank you for his referral. We will continue to follow along with you LON MENDOZA MD [facility] LON MENDOZA MD March 19, 2019 08:31
[2019-03-19] MEDS: ENOXAPARIN 40 MG/0.4 ML SYG SC SCH (08:40)
--- NOTE | 2019-03-19 08:53 | PN ---
DATE: 03/19/2019 SUBJECTIVE: The patient is stable, remains on nasal cannula. The patient's urinary output has been minimal. No other acute events noted. No hemoptysis, hematemesis or hematochezia. OBJECTIVE: VITAL SIGNS: Blood pressure is 112/54, respirations 24, pulse 107, temperature 98.1. HEENT: Head is normocephalic. NECK: Supple. HEART: Regular rate. LUNGS: Show diminished breath sounds at the base. ABDOMEN: Soft, nontender to palpation without rebound or guarding. EXTREMITIES: Negative for clubbing, cyanosis. Trace edema. DERMATOLOGIC: No rashes. MUSCULOSKELETAL: No joint effusion. NEUROLOGIC: No change in exam. MEDICATIONS: The patient's medications have been reviewed. LABORATORY DATA: Reviewed. Urinalysis was reviewed. IMAGING STUDIES: Renal ultrasound was reviewed. ASSESSMENT AND PLAN: 1. Oliguric acute kidney injury with previous baseline creatinine of 1.16 mg/dL. Etiology of acute kidney injury is secondary to acute tubular necrosis due to contrast-associated nephropathy, hemodyna mics. The patient remains in injury phase of acute tubular necrosis as renal function continues to d ecline. The patient's urinalysis shows FENa less than 1%, which can be seen in contrast-associated n ephropathy. The patient also has significant nephrotic range proteinuria. Plan at this point is to continue current medical management. Continue supportive care, renally dose all medications. We judith l give the patient a diuretic challenge to see if the patient can be converted to nonoliguric state. We will discontinue IV fluids. Otherwise, continue supportive care, renally dose all medications, a void nephrotoxins. 2. Anemia. Continue to monitor hemoglobin and hematocrit levels. 3. Mineral bone disorder, monitor calcium and phosphorus levels. 4. Acute hypoxemic respiratory failure, etiology is secondary to pneumonia, possible septic emboli. Continue medical management. Continue supplemental oxygen, continue antibiotics. 5. 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 Continue to monitor. Follow u p with cardiology. The patient's 2D echo was reviewed. The patient has severe enlargement of right ventricle and elevated pulmonary pressures of 53 mmHg with severe tricuspid regurgitation. 6. Acute heart failure. The patient has a stage III/IV diastolic dysfunction, tricuspid regurgitati on. Plan is to discontinue IV fluids. We will give the patient diuretic challenge and monitor. 7. Elevated troponin, possible non-ST elevation myocardial infarction type 2 versus type 1. Continu e to monitor. Follow up with Cardiology. 8. History of arrhythmia status post pacemaker placement. 9. History of endocarditis. Continue current antibiotic regimen. Please note I spent over 30 minutes of critical care time with this patient. Dictated By: ELSIE CHRISTENSEN DO NR/NTS Conf#: [id number] DID#: [id number] CC: LON MENDOZA MD; ROBY MILLER MD;*EndCC*
--- NOTE | 2019-03-19 15:47 | PN ---
Date/Time of Note Date/Time of Note DATE: 03/19/19 TIME: 15:46 Assessment/Plan VTE Prophylaxis Risk score (from Ns)>0 risk: 3 SCD applied (from Nsg): Yes Pharmacological prophylaxis: heparin Lines/Catheters IV Catheter Type (from Nrsg): Peripheral IV Urinary Cath still in place: No Assessment/Plan Hospital Course EXAM: Uncomfortable appearing tachypneic Lungs clear Tachy, regular PPM No edema 28 yo male with h/o valve replacements and PPM following endocarditis in 2017 (specifics unclear) who presents today with fever, tachypnea, and hypoxia with pulmonary infiltrates following IV meth use yesterday Endocarditis: - 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 Daily cultures Malekmehr from CV surgery Acute hypoxic respiratory failure with fever/sepsis: - 2/2 pneumoina and septic embolus as seen on CT-A. Continue abx. Given septic embolus not VTE will not give anticoagulation - O2 as needed CLAUDIA: - Likely from sepsis, perhaps immunologic phenomenon from endocarditis - Imaging suggests CKD H/o valve replacements and PPM; - Stable Result Diagram: 03/19/19 0445 03/19/19 0445 Results 24hrs Laboratory Tests Test 03/19/19 04:45 White Blood Count 13.9 H Red Blood Count 4.06 L Hemoglobin 10.8 L Hematocrit 34.6 L Mean Corpuscular Volume 85.2 Mean Corpuscular Hemoglobin 26.6 L Mean Corpuscular Hemoglobin Concent 31.2 L Red Cell Distribution Width 15.9 H Platelet Count 165 Mean Platelet Volume 10.5 H Immature Granulocytes % 6.800 H Neutrophils % 74.6 Lymphocytes % 7.1 L Monocytes % 3.3 Eosinophils % 7.6 H Basophils % 0.6 Nucleated Red Blood Cells % 0.0 Immature Granulocytes # 0.940 H Neutrophils # 10.4 H Lymphocytes # 1.0 Monocytes # 0.5 Eosinophils # 1.1 H Basophils # 0.1 Nucleated Red Blood Cells # 0.0 Sodium Level 134 L Potassium Level 5.1 Chloride Level 105 Carbon Dioxide Level 17 L Anion Gap 12 Blood Urea Nitrogen 51 H Creatinine 3.04 H Est Glomerular Filtrat Rate mL/min 24 L Glucose Level 87 Calcium Level 7.6 L Phosphorus Level 6.2 H Magnesium Level 1.7 Procalcitonin 251.64 H Subjective 24 Hr Interval Summary Free Text/Dictation Wosrening renal failure Breathing improved somewhat Bothersome cough w hemoptysis Exam/Review of Systems Exam Vitals Vital Signs Date Temp Pulse Resp B/P (MAP) Pulse Ox O2 O2 Flow FiO2 Time Delivery Rate 03/19/19 103 15:36 03/19/19 24 116/74 95 15:00 (88) 03/19/19 98.0 Mask 12:00 03/19/19 10.0 08:00 03/17/19 100 17:33 Intake and Output 03/18/19 03/18/19 03/19/19 1515:00 23:00 07:00 IntakeIntake Total 980 ml 1383.333 ml 367.333 ml OutputOutput Total 425 ml BalanceBalance 555 ml 1383.333 ml 367.333 ml Results Results 24hrs Laboratory Tests Test 03/19/19 04:45 White Blood Count 13.9 H Red Blood Count 4.06 L Hemoglobin 10.8 L Hematocrit 34.6 L Mean Corpuscular Volume 85.2 Mean Corpuscular Hemoglobin 26.6 L Mean Corpuscular Hemoglobin Concent 31.2 L Red Cell Distribution Width 15.9 H Platelet Count 165 Mean Platelet Volume 10.5 H Immature Granulocytes % 6.800 H Neutrophils % 74.6 Lymphocytes % 7.1 L Monocytes % 3.3 Eosinophils % 7.6 H Basophils % 0.6 Nucleated Red Blood Cells % 0.0 Immature Granulocytes # 0.940 H Neutrophils # 10.4 H Lymphocytes # 1.0 Monocytes # 0.5 Eosinophils # 1.1 H Basophils # 0.1 Nucleated Red Blood Cells # 0.0 Sodium Level 134 L Potassium Level 5.1 Chloride Level 105 Carbon Dioxide Level 17 L Anion Gap 12 Blood Urea Nitrogen 51 H Creatinine 3.04 H Est Glomerular Filtrat Rate mL/min 24 L Glucose Level 87 Calcium Level 7.6 L Phosphorus Level 6.2 H Magnesium Level 1.7 Procalcitonin 251.64 H Medications Medication Current Medications IV Flush (NS 3 ml) 3 ml PER PROTOCOL IV ; Start 03/17/19 at 15:00 Oxycodone/ Acetaminophen (Percocet (5/ 325)) 2 tab Q6H PRN PO .SEVERE PAIN 7-10 Last administered on 03/18/19at 09:22; Admin Dose 2 TAB; Start 03/17/19 at 15:00 Vancomycin HCl (Vanco Iv Per Pharmacy) VANCOMYCIN PER PHARMACY PER PROTOCOL XX ; Start 03/17/19 at 15:00 Vancomycin HCl 1.5 gm/Sodium Chloride 250 ml @ 83.333 mls/ hr Q24H IVPB Last administered on 03/18/19at 22:25; Admin Dose 83.333 MLS/HR; Start 03/18/19 at 22:00 Morphine Sulfate (morphine) 2 mg Q4H PRN IV SEVERE PAIN LEVEL 7-10 Last administered on 03/19/19at 10:30; Admin Dose 2 MG; Start 03/18/19 at 12:00 Enoxaparin Sodium (Lovenox) 40 mg DAILY SC Last administered on 03/18/19at 18:40; Admin Dose 40 MG; Start 03/18/19 at 15:30 Piperacillin Sod/ Tazobactam Sod 100 ml @ 200 mls/hr Q8 IVPB Last administered on 03/19/19at 13:41; Admin Dose 200 MLS/HR; Start 03/19/19 at 14:00 Miscellaneous Information (*Rx Drug Level Order Reminder*) VANCO TROUGH ON 03/05... ONCE ONCE XX ; Start 03/19/19 at 21:00; Stop 03/19/19 at 21:01 ROBY MILLER MD March 19, 2019 15:47
--- NOTE | 2019-03-19 20:08 | CONS ---
Assessment/Plan Assessment/Plan Assessment/Plan (Daily) Tricuspid valve endocarditis Status post valve repair Continue antibiotics Continue medical therapy Consultation Date/Type/Reason Admit Date/Time March 17, 2019 at 15:13 Date of Consultation: March 19, 2019 Type of Consult Cardiothoracic surgery Reason for Consultation Evaluation for endocarditis Date/Time of Note DATE: 03/19/19 TIME: 20:04 Hx of Present Illness This is a 28-year-old male with a history of IV drug use was admitted because of tricuspid valve endocarditis patient is currently being treated with antibiotics he is an active IV drug user. Echocardiogram Normal left ventricular cavity size. Normal left ventricular wall thickness. Moderate global left ventricular systolic dysfunction. Paradoxical septal motion consistent with IVCD or bundle branch block. Ejection fraction is visually estimated at 45 %. Tissue Doppler/Mitral Doppler indices are consistent with restrictive physiology with markedly elevated left atrial pressure (Stage III-IV diastolic dysfunction). Mild mitral leaflet calcification. Mild mitral annular calcification. Trace mitral regurgitation. No hemodynamically significant aortic stenosis by doppler. Non coronary cusp appears moderately calcified. Trileaflet aortic valve. Estimated peak PA systolic pressure 53 mmHg. Tricuspid valve repair appears moderately thickened. There is moderate to severe tricuspid regurgitation. Possible echogenic structure is seen on the tricuspid valve with vegetation. Inferior vena cava without respiratory collapse, however, patient on ventilator. ENT: no complaints Respiratory: no complaints Cardiovascular: no complaints Gastrointestinal: no complaints Genitourinary: no complaints Musculoskeletal: no complaints Skin: no complaints Past Medical History Home Meds No Active Prescriptions or Reported Meds Medications Current Medications IV Flush (NS 3 ml) 3 ml PER PROTOCOL IV ; Start 03/17/19 at 15:00 Oxycodone/ Acetaminophen (Percocet (5/ 325)) 2 tab Q6H PRN PO .SEVERE PAIN 7-10 Last administered on 03/18/19at 09:22; Admin Dose 2 TAB; Start 03/17/19 at 15:00 Vancomycin HCl (Vanco Iv Per Pharmacy) VANCOMYCIN PER PHARMACY PER PROTOCOL XX ; Start 03/17/19 at 15:00 Vancomycin HCl 1.5 gm/Sodium Chloride 250 ml @ 83.333 mls/ hr Q24H IVPB Last administered on 03/18/19at 22:25; Admin Dose 83.333 MLS/HR; Start 03/18/19 at 22:00 Morphine Sulfate (morphine) 2 mg Q4H PRN IV SEVERE PAIN LEVEL 7-10 Last administered on 03/19/19at 15:58; Admin Dose 2 MG; Start 03/18/19 at 12:00 Enoxaparin Sodium (Lovenox) 40 mg DAILY SC Last administered on 03/18/19at 18:40; Admin Dose 40 MG; Start 03/18/19 at 15:30 Piperacillin Sod/ Tazobactam Sod 100 ml @ 200 mls/hr Q8 IVPB Last administered on 03/19/19at 13:41; Admin Dose 200 MLS/HR; Start 03/19/19 at 14:00 Miscellaneous Information (*Rx Drug Level Order Reminder*) VANCO TROUGH ON 03/05... ONCE ONCE XX ; Start 03/19/19 at 21:00; Stop 03/19/19 at 21:01 Allergies: Coded Allergies: No Known Allergy (Unverified , 03/17/19) Social History Alcohol Use: none Smoking Status: Current every day smoker Drug Use: none Exam/Review of Systems Exam Vitals Vital Signs Date Temp Pulse Resp B/P (MAP) Pulse Ox O2 O2 Flow FiO2 Time Delivery Rate 03/19/19 97.6 104 22 115/65 97 Mask 16:59 (82) 03/19/19 10.0 16:00 03/17/19 100 17:33 Intake and Output 03/18/19 03/18/19 03/19/19 1515:00 23:00 07:00 IntakeIntake Total 980 ml 1383.333 ml 367.333 ml OutputOutput Total 425 ml BalanceBalance 555 ml 1383.333 ml 367.333 ml Eyes: nl conjunctiva, EOMI, nl lids, nl sclera, PERRL ENMT: nl external ears & nose, nl lips & teeth, nl nasal mucosa & septum Neck: supple, non-tender Respiratory: clear to auscultation, normal air movement Cardiovascular: regular rate and rhythm, nl pulses Gastrointestinal: soft, nl liver, spleen, non-tender Extremities: normal pulses Results Result Diagram: 03/19/19 0445 03/19/19 0445 Results 24hrs Laboratory Tests Test 03/19/19 04:45 White Blood Count 13.9 H Red Blood Count 4.06 L Hemoglobin 10.8 L Hematocrit 34.6 L Mean Corpuscular Volume 85.2 Mean Corpuscular Hemoglobin 26.6 L Mean Corpuscular Hemoglobin Concent 31.2 L Red Cell Distribution Width 15.9 H Platelet Count 165 Mean Platelet Volume 10.5 H Immature Granulocytes % 6.800 H Neutrophils % 74.6 Lymphocytes % 7.1 L Monocytes % 3.3 Eosinophils % 7.6 H Basophils % 0.6 Nucleated Red Blood Cells % 0.0 Immature Granulocytes # 0.940 H Neutrophils # 10.4 H Lymphocytes # 1.0 Monocytes # 0.5 Eosinophils # 1.1 H Basophils # 0.1 Nucleated Red Blood Cells # 0.0 Sodium Level 134 L Potassium Level 5.1 Chloride Level 105 Carbon Dioxide Level 17 L Anion Gap 12 Blood Urea Nitrogen 51 H Creatinine 3.04 H Est Glomerular Filtrat Rate mL/min 24 L Glucose Level 87 Calcium Level 7.6 L Phosphorus Level 6.2 H Magnesium Level 1.7 Procalcitonin 251.64 H Medications Medication Current Medications IV Flush (NS 3 ml) 3 ml PER PROTOCOL IV ; Start 03/17/19 at 15:00 Oxycodone/ Acetaminophen (Percocet (5/ 325)) 2 tab Q6H PRN PO .SEVERE PAIN 7-10 Last administered on 03/18/19at 09:22; Admin Dose 2 TAB; Start 03/17/19 at 15:00 Vancomycin HCl (Vanco Iv Per Pharmacy) VANCOMYCIN PER PHARMACY PER PROTOCOL XX ; Start 03/17/19 at 15:00 Vancomycin HCl 1.5 gm/Sodium Chloride 250 ml @ 83.333 mls/ hr Q24H IVPB Last administered on 03/18/19at 22:25; Admin Dose 83.333 MLS/HR; Start 03/18/19 at 22:00 Morphine Sulfate (morphine) 2 mg Q4H PRN IV SEVERE PAIN LEVEL 7-10 Last administered on 03/19/19at 15:58; Admin Dose 2 MG; Start 03/18/19 at 12:00 Enoxaparin Sodium (Lovenox) 40 mg DAILY SC Last administered on 03/18/19at 18:40; Admin Dose 40 MG; Start 03/18/19 at 15:30 Piperacillin Sod/ Tazobactam Sod 100 ml @ 200 mls/hr Q8 IVPB Last administered on 03/19/19at 13:41; Admin Dose 200 MLS/HR; Start 03/19/19 at 14:00 Miscellaneous Information (*Rx Drug Level Order Reminder*) VANCO TROUGH ON 03/05... ONCE ONCE XX ; Start 03/19/19 at 21:00; Stop 03/19/19 at 21:01 JOHANNA DEAN MD March 19, 2019 20:08
[2019-03-20] VITALS (12 sets, daily range): BP systolic 91–154; BP diastolic 53–88; PULSE 81–116; RESP 17–25
[2019-03-20] MEDS: PIPER-TAZO 3.375 GM IV (PMX) 100 ML IVPB SCH ×3 (05:58→21:56)
[2019-03-20] MEDS: morphine 2 MG INJ IV PRN ×2 (06:29→12:00)
--- NOTE | 2019-03-20 07:00 | CONS ---
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 usual suspect in IVDA is staph or strep but pseudomonas and benjamin can also be seen continue with vanco/zosyn at present fevers have improved and WBC is improved today I will order WBC scan as pt c/o pain over the pacer site I will also order u/s of pacer site to see if there is fluid present 03/20 - GPC growing in all 3 sets of blood cx from 03/17, await ID MRSA in nasal continue with vanco/zosyn pt was seen in this hospital last month under a different MRN and he was evaluated for endocarditis at that time he had corynebacterium in two different sets of blood cx and had a MADINA which was neg for vegetations he was give two weeks of ceftriaxone for pneumonia, they also wondered if he had septic emboli or PE at that time he got an IVC filter but were planning to remove it because he did not have a PE but he left AMA u/s of around pacer site was neg for fluid collection WBC scan is pending 2) IVDA pt states he was tested in the last 1-2 months and was neg for HIV and he does not share his needles no hx of hepatitis either I will check into his prior hospitalization here that if it exists is under another MR# / - pt has another MRN and his HIV was neg in february he had corynebacterium in two different sets of blood cx then 3) pulmonary infiltrates PACS system is not working on two different computers, I need to see his CT's an d CXR to see if these are c/w septic emboli or not vanco/zosyn should cover if he has pneumonia rather than septic emboli procalcitonin has been ordered also 03/20 - his prior chest CT last month shows that he has waxing and waning of pulmonary infiltrates and his cavitary lesions have improved slightly his pulmonary infiltrates are patchy and somewhat large which would be atypical for septic emboli his procalcitonin is very high but bacteremia will also elevated it continue with vanco/zosyn will check for atypical organisms with serology Consultation Date/Type/Reason Admit Date/Time March 17, 2019 at 15:13 Initial Consult Date 03/19/19 Type of Consult ID Requesting Provider: ROBY MILLER MD Date/Time of Note DATE: 03/20/19 TIME: 06:51 24 HR Interval Summary Free Text/Dictation pt states no change with his breathing chest pain is a bit better no N, V he states he has diarrhea but only one BM recorded in last 24 hours Exam/Review of Systems Exam Vitals Vital Signs Date Temp Pulse Resp B/P (MAP) Pulse Ox O2 O2 Flow FiO2 Time Delivery Rate 03/20/19 96 04:00 03/20/19 98.2 22 105/60 97 Mask 03:59 (75) 03/20/19 6.0 01:47 03/17/19 100 17:33 Intake and Output 03/19/19 03/19/19 03/20/19 1515:00 23:00 07:00 IntakeIntake Total 220 ml 700 ml OutputOutput Total 600 ml 800 ml 1400 ml BalanceBalance -600 ml -580 ml -700 ml Exam pt answers some questions with frequent prompting Constitutional: alert Respiratory: other (bibasilar rales) Cardiovascular: regular rate and rhythm Gastrointestinal: soft, non-tender Results Result Diagram: 03/20/19 0526 03/20/19 0526 Results 24hrs Laboratory Tests Test 03/19/19 21:18 03/20/19 05:26 Vancomycin Level Trough 26.0 *H White Blood Count 12.6 H Red Blood Count 3.92 L Hemoglobin 10.3 L Hematocrit 32.6 L Mean Corpuscular Volume 83.2 Mean Corpuscular Hemoglobin 26.3 L Mean Corpuscular Hemoglobin Concent 31.6 L Red Cell Distribution Width 15.8 H Platelet Count 160 Mean Platelet Volume 10.1 Immature Granulocytes % 1.100 H Neutrophils % 80.6 H Lymphocytes % 9.0 L Monocytes % 4.0 Eosinophils % 4.8 Basophils % 0.5 Nucleated Red Blood Cells % 0.2 H Immature Granulocytes # 0.140 H Neutrophils # 10.2 H Lymphocytes # 1.1 Monocytes # 0.5 Eosinophils # 0.6 H Basophils # 0.1 Nucleated Red Blood Cells # 0.0 Sodium Level 134 L Potassium Level 4.3 Chloride Level 105 Carbon Dioxide Level 18 L Anion Gap 11 Blood Urea Nitrogen 51 H Creatinine 2.59 H Est Glomerular Filtrat Rate mL/min 29 L Glucose Level 97 Calcium Level 8.5 Phosphorus Level 5.1 H Magnesium Level 2.0 Medications Medication Current Medications IV Flush (NS 3 ml) 3 ml PER PROTOCOL IV ; Start 03/17/19 at 15:00 Oxycodone/ Acetaminophen (Percocet (5/ 325)) 2 tab Q6H PRN PO .SEVERE PAIN 7-10 Last administered on 03/18/19 09:22; Admin Dose 2 TAB; Start 03/17/19 at 15:00 Vancomycin HCl (Vanco Iv Per Pharmacy) VANCOMYCIN PER PHARMACY PER PROTOCOL XX ; Start 03/17/19 at 15:00 Vancomycin HCl 1.5 gm/Sodium Chloride 250 ml @ 83.333 mls/ hr Q24H IVPB Last administered on 03/18/19 22:25; Admin Dose 83.333 MLS/HR; Start 03/18/19 at 22:00; Status Hold Morphine Sulfate (morphine) 2 mg Q4H PRN IV SEVERE PAIN LEVEL 7-10 Last administered on 03/20/19 06:29; Admin Dose 2 MG; Start 03/18/19 at 12:00 Enoxaparin Sodium (Lovenox) 40 mg DAILY SC Last administered on 03/18/19at 18:40; Admin Dose 40 MG; Start 03/18/19 at 15:30 Piperacillin Sod/ Tazobactam Sod 100 ml @ 200 mls/hr Q8 IVPB Last administered on 03/20/19 05:58; Admin Dose 200 MLS/HR; Start 03/19/19 at 14:00 JANETH LOGAN MD March 20, 2019 07:00
[2019-03-20] MEDS: FUROSEMIDE 20 MG TAB PO SCH (08:30)
--- NOTE | 2019-03-20 08:32 | PN ---
DATE: 03/20/2019 SUBJECTIVE: The patient was transferred from intensive care unit to telemetry. The patient currentl y remains on facemask. Urinary output has increased. No other events noted. OBJECTIVE: VITAL SIGNS: Blood pressure is 105/60, respirations 20, pulse 98, temperature 98.2. HEENT: Head is normocephalic. NECK: Supple. HEART: Regular rate. LUNGS: Show diminished breath sounds at the base. ABDOMEN: Soft, nontender to palpation without rebound or guarding. EXTREMITIES: Negative for clubbing, cyanosis. Trace edema. DERMATOLOGIC: No rashes. MUSCULOSKELETAL: No joint effusion. NEUROLOGIC: No change in exam. MEDICATIONS: Reviewed. LABORATORY DATA: From 03/20/2019 was reviewed. ASSESSMENT AND PLAN: 1. Nonoliguric acute kidney injury with previous baseline creatinine 1.16 mg/dL. Etiology of acute kidney injury secondary to acute tubular necrosis due to contrast-associated nephropathy. The patien t appears to be entering recovery phase of acute tubular necrosis. The patient responded well to diu retic therapy. At this point, continue current treatment plan, supportive care, renally dose all med s. 2. Anemia. Monitor hemoglobin and hematocrit levels. 3. Mineral bone disorder. Monitor calcium and phosphorus levels. 4. Hypernatremia secondary to acute kidney injury. Continue to monitor, minimize free water intake. 5. Acute hypoxemic respiratory failure secondary to pneumonia, septic emboli. Continue medical joselito gement. Continue oxygen, antibiotics. 6. 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 Follow up with cardiology. A 2D echo was reviewed. 7. Acute diastolic heart failure. Continue current medical management. Continue diuretic therapy, monitor hemodynamics closely. 8. Elevated troponin likely infarction type 2. Continue to monitor. 9. History of arrhythmia, status post pacemaker placement. 10. Endocarditis Continue current antibiotic regimen. Dictated By: ELSIE CHRISTENSEN DO NR/NTS Conf#: [id number] DID#: [id number] CC: ROBY MILLER MD;*EndCC*
[2019-03-20] MEDS: ENOXAPARIN 40 MG/0.4 ML SYG SC SCH (08:34)
--- NOTE | 2019-03-20 09:16 | CONS ---
Consult Date/Type/Reason Admit Date/Time March 17, 2019 at 15:13 Initial Consult Date 03/17/19 Type of Consultation: cv Requesting Provider: ROBY MILLER MD Date/Time of Note DATE: 03/20/19 TIME: 09:13 Subjective Interventional cardiology follow-up progress note Subjective: Discussed with the staff and telemetry was reviewed. Patient remains in /NS R/sinus tachycardia Discussed with physicians including Dr. Hastings who has found that the patient was admitted recently under different medical record number and has undergone work- up and including MADINA. Patient had signed out AMA Patient continues to be in respiratory distress and in on oxygen but less now . Objective: General: Young gentleman appears to be toxic looking any distress HEENT: NC/AT. pupils are equal. round. NECK: no stridor. CV: tachycardiac systolic murmur; no gallop or rubs. PULM: +rhonchi. GI: SOFT, NT, ND, no rebound or guarding Extremity: trace B/L LE edema. no clubbing. neuro: awake and alert, OX3. Psych: Anxious rectal: deferred Echocardiogram was personally reviewed which showed: There is severe enlargement of right atrium. Severe enlargement of right ventricle. Normal left ventricular cavity size. Normal left ventricular wall thickness. Moderate global left ventricular systolic dysfunction. Paradoxical septal motion consistent with IVCD or bundle branch block. Ejection fraction is visually estimated at 45 %. Tissue Doppler/Mitral Doppler indices are consistent with restrictive physiology with markedly elevated left atrial pressure (Stage III-IV diastolic dysfunction). Mild mitral leaflet calcification. Mild mitral annular calcification. Trace mitral regurgitation. No hemodynamically significant aortic stenosis by doppler. Non coronary cusp appears moderately calcified. Trileaflet aortic valve. Estimated peak PA systolic pressure 53 mmHg. Tricuspid valve repair appears moderately thickened. There is moderate to severe tricuspid regurgitation. Possible echogenic structure is seen on the tricuspid valve with vegetation. Inferior vena cava without respiratory collapse, however, patient on ventilator. CT pulmonary angiogram done in the emergency room showed: Extremely limited evaluation of the segmental and subsegmental pulmonary arteries and lung parenchyma secondary to motion. Repeat exam can be considered. Potential nonocclusive filling defect in the right descending pulmonary artery, suggesting pulmonary embolus. Evaluation is suboptimal secondary to motion. Multiple prominent lymph nodes in the mediastinum. Etiology is uncertain. These could reflect reactive lymph nodes. Diffuse mild fat stranding of the mediastinal fat. Finding could reflect inflammation or potentially scarring from prior surgery. Extensive ground-glass opacities throughout both lungs. Findings suggest multifocal infection/inflammation. Atypical infection is not excluded. 4.3 cm ground-glass nodule in the superior segment of the right lower lobe and 1.5 cm subpleural ground-glass nodule in the posterior left upper lobe. These likely reflect inflammatory nodules. Close continued follow-up with repeat exam in 1 month to assess stability can be considered. 1.9 cm bleb or cavitation containing an 8 mm nodule versus nodular debris. Mycetoma is not excluded. A few additional scattered blebs or cavitations in the right upper lobe, right middle lobe and right lower lobe. Prominent appearance of a partially visualized liver and spleen. Findings could reflect hepatic splenomegaly of uncertain etiology. If further characterization is needed ultrasound or CT of the abdomen could be helpful. Ultrasound lower extremity did not show any DVT Objective Vitals Vital Signs Date Temp Pulse Resp B/P (MAP) Pulse Ox O2 O2 Flow FiO2 Time Delivery Rate 03/20/19 97.8 96 19 110/71 96 08:18 (84) 03/20/19 Simple 6.0 07:34 Mask 03/17/19 100 17:33 Intake and Output 03/19/19 03/19/19 03/20/19 1515:00 23:00 07:00 IntakeIntake Total 220 ml 700 ml OutputOutput Total 600 ml 800 ml 1400 ml BalanceBalance -600 ml -580 ml -700 ml Results/Medications Result Diagram: 03/20/19 0526 03/20/19 0526 Results 24 hrs Laboratory Tests Test 03/19/19 21:18 03/20/19 05:26 Vancomycin Level Trough 26.0 *H White Blood Count 12.6 H Red Blood Count 3.92 L Hemoglobin 10.3 L Hematocrit 32.6 L Mean Corpuscular Volume 83.2 Mean Corpuscular Hemoglobin 26.3 L Mean Corpuscular Hemoglobin Concent 31.6 L Red Cell Distribution Width 15.8 H Platelet Count 160 Mean Platelet Volume 10.1 Immature Granulocytes % 1.100 H Neutrophils % 80.6 H Lymphocytes % 9.0 L Monocytes % 4.0 Eosinophils % 4.8 Basophils % 0.5 Nucleated Red Blood Cells % 0.2 H Immature Granulocytes # 0.140 H Neutrophils # 10.2 H Lymphocytes # 1.1 Monocytes # 0.5 Eosinophils # 0.6 H Basophils # 0.1 Nucleated Red Blood Cells # 0.0 Sodium Level 134 L Potassium Level 4.3 Chloride Level 105 Carbon Dioxide Level 18 L Anion Gap 11 Blood Urea Nitrogen 51 H Creatinine 2.59 H Est Glomerular Filtrat Rate mL/min 29 L Glucose Level 97 Calcium Level 8.5 Phosphorus Level 5.1 H Magnesium Level 2.0 Home Meds No Active Prescriptions or Reported Meds Medications Current Medications IV Flush (NS 3 ml) 3 ml PER PROTOCOL IV ; Start 03/17/19 at 15:00 Oxycodone/ Acetaminophen (Percocet (5/ 325)) 2 tab Q6H PRN PO .SEVERE PAIN 7-10 Last administered on 03/18/19 09:22; Admin Dose 2 TAB; Start 03/17/19 at 15:00 Vancomycin HCl (Vanco Iv Per Pharmacy) VANCOMYCIN PER PHARMACY PER PROTOCOL XX ; Start 03/17/19 at 15:00 Vancomycin HCl 1.5 gm/Sodium Chloride 250 ml @ 83.333 mls/ hr Q24H IVPB Last administered on 03/18/19at 22:25; Admin Dose 83.333 MLS/HR; Start 03/18/19 at 22:00; Status Hold Morphine Sulfate (morphine) 2 mg Q4H PRN IV SEVERE PAIN LEVEL 7-10 Last administered on 03/20/19at 06:29; Admin Dose 2 MG; Start 03/18/19 at 12:00 Enoxaparin Sodium (Lovenox) 40 mg DAILY SC Last administered on 03/20/19at 08:34; Admin Dose 40 MG; Start 03/18/19 at 15:30 Piperacillin Sod/ Tazobactam Sod 100 ml @ 200 mls/hr Q8 IVPB Last administered on 03/20/19at 05:58; Admin Dose 200 MLS/HR; Start 03/19/19 at 14:00 Furosemide (Lasix) 20 mg DAILY PO Last administered on 03/20/19 08:30; Admin Dose 20 MG; Start 03/20/19 at 09:00 Assessment/Plan Hospital Course (Demo Recall) 1. History of tricuspid valve replacement for endocarditis 2. 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 Fever chills respiratory distress rule out endocarditis of tricuspid valve versus others 4. Pneumonia 5. Possible pulmonary emboli ? related to septic emboli versus others 6. Respiratory distress 7. History of heart block status post permanent pacemaker 8. Acute renal failure: Probably due to ATN 9. Mildly abnormal troponin secondary to above 10. Sepsis secondary to above Recommendations: Antibiotic management as per internal medicine and ID rec Continue with oxygen supplement. No evidence of DVT seen on LE ultrasound consider pulmonary consultation to assist in management Continue with ICU care Thank you for his referral. We will continue to follow along with you LON MENDOZA MD [facility] LON MENDOZA MD March 20, 2019 09:16
[2019-03-20] MEDS: OXYCODONE/ACETAMINOPHEN (5/325) TAB PO PRN (10:05)
[2019-03-20] MEDS: ALBUTEROL/IPRATROPIUM (NEB) 3 ML AMP HHN PRN (12:03)
--- NOTE | 2019-03-20 13:05 | PN ---
Date/Time of Note Date/Time of Note DATE: 03/20/19 TIME: 13:04 Assessment/Plan VTE Prophylaxis Risk score (from Ns)>0 risk: 4 SCD applied (from Ns): Yes Pharmacological prophylaxis: heparin Lines/Catheters IV Catheter Type (from Nrsg): Saline Lock Urinary Cath still in place: No Assessment/Plan Hospital Course EXAM: Uncomfortable appearing tachypneic Lungs clear Tachy, regular PPM No edema 28 yo male with h/o valve replacements and PPM following endocarditis in 2017 (specifics unclear) who presents today with fever, tachypnea, and hypoxia with pulmonary infiltrates following IV meth use Endocarditis: - 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 Daily cultures. Malekmehr from CV surgery to consult Acute hypoxic respiratory failure with fever/sepsis: - 2/2 pneumoina and septic embolus as seen on CT-A. Continue abx. Given septic embolus not VTE will not give anticoagulation - O2 as needed CLAUDIA: - Likely from sepsis, perhaps immunologic phenomenon from endocarditis - Imaging suggests CKD H/o valve replacements and PPM; - Stable Result Diagram: 03/20/19 0503/20/19 05 Results 24hrs Laboratory Tests Test 03/19/19 21:18 03/20/19 05:26 Vancomycin Level Trough 26.0 *H White Blood Count 12.6 H Red Blood Count 3.92 L Hemoglobin 10.3 L Hematocrit 32.6 L Mean Corpuscular Volume 83.2 Mean Corpuscular Hemoglobin 26.3 L Mean Corpuscular Hemoglobin Concent 31.6 L Red Cell Distribution Width 15.8 H Platelet Count 160 Mean Platelet Volume 10.1 Immature Granulocytes % 1.100 H Neutrophils % 80.6 H Segmented Neutrophils % (Manual) 67 Band Neutrophils % (Manual) 21 H Lymphocytes % 9.0 L Lymphocytes % (Manual) 7 L Monocytes % 4.0 Monocytes % (Manual) 3 Eosinophils % 4.8 Eosinophils % (Manual) 1 Basophils % 0.5 Basophils % (Manual) 1 Nucleated Red Blood Cells % 1 H Immature Granulocytes # 0.140 H Neutrophils # 10.2 H Neutrophils # (Manual) 8.8 H Band Neutrophils # 2.6 H Lymphocytes (Manual) 0.8 Lymphocytes # 1.1 Monocytes # 0.5 Monocytes # (Manual) 0.3 Eosinophils # 0.6 H Basophils # 0.1 Basophils # (Manual) 0.1 H Nucleated Red Blood Cells # 0.0 Platelet Estimate NORMAL Giant Platelets 1 H Polychromasia 1+ Poikilocytosis 1+ Anisocytosis 1+ Sodium Level 134 L Potassium Level 4.3 Chloride Level 105 Carbon Dioxide Level 18 L Anion Gap 11 Blood Urea Nitrogen 51 H Creatinine 2.59 H Est Glomerular Filtrat Rate mL/min 29 L Glucose Level 97 Calcium Level 8.5 Phosphorus Level 5.1 H Magnesium Level 2.0 Subjective 24 Hr Interval Summary Free Text/Dictation Conointues ot have pain at PPM site Still SOB Exam/Review of Systems Exam Vitals Vital Signs Date Temp Pulse Resp B/P (MAP) Pulse Ox O2 O2 Flow FiO2 Time Delivery Rate 03/20/19 98.7 116 17 154/88 92 12:32 (110) 03/20/19 Simple 6.0 12:04 Mask 03/17/19 100 17:33 Intake and Output 03/19/19 03/19/19 03/20/19 1414:59 22:59 06:59 IntakeIntake Total 100 ml 220 ml 700 ml OutputOutput Total 600 ml 800 ml 1400 ml BalanceBalance -500 ml -580 ml -700 ml Results Results 24hrs Laboratory Tests Test 03/19/19 21:18 03/20/19 05:26 Vancomycin Level Trough 26.0 *H White Blood Count 12.6 H Red Blood Count 3.92 L Hemoglobin 10.3 L Hematocrit 32.6 L Mean Corpuscular Volume 83.2 Mean Corpuscular Hemoglobin 26.3 L Mean Corpuscular Hemoglobin Concent 31.6 L Red Cell Distribution Width 15.8 H Platelet Count 160 Mean Platelet Volume 10.1 Immature Granulocytes % 1.100 H Neutrophils % 80.6 H Segmented Neutrophils % (Manual) 67 Band Neutrophils % (Manual) 21 H Lymphocytes % 9.0 L Lymphocytes % (Manual) 7 L Monocytes % 4.0 Monocytes % (Manual) 3 Eosinophils % 4.8 Eosinophils % (Manual) 1 Basophils % 0.5 Basophils % (Manual) 1 Nucleated Red Blood Cells % 1 H Immature Granulocytes # 0.140 H Neutrophils # 10.2 H Neutrophils # (Manual) 8.8 H Band Neutrophils # 2.6 H Lymphocytes (Manual) 0.8 Lymphocytes # 1.1 Monocytes # 0.5 Monocytes # (Manual) 0.3 Eosinophils # 0.6 H Basophils # 0.1 Basophils # (Manual) 0.1 H Nucleated Red Blood Cells # 0.0 Platelet Estimate NORMAL Giant Platelets 1 H Polychromasia 1+ Poikilocytosis 1+ Anisocytosis 1+ Sodium Level 134 L Potassium Level 4.3 Chloride Level 105 Carbon Dioxide Level 18 L Anion Gap 11 Blood Urea Nitrogen 51 H Creatinine 2.59 H Est Glomerular Filtrat Rate mL/min 29 L Glucose Level 97 Calcium Level 8.5 Phosphorus Level 5.1 H Magnesium Level 2.0 Medications Medication Current Medications IV Flush (NS 3 ml) 3 ml PER PROTOCOL IV ; Start 03/17/19 at 15:00 Oxycodone/ Acetaminophen (Percocet (5/ 325)) 2 tab Q6H PRN PO .SEVERE PAIN 7-10 Last administered on 03/20/19 10:05; Admin Dose 2 TAB; Start 03/17/19 at 15:00 Vancomycin HCl (Vanco Iv Per Pharmacy) VANCOMYCIN PER PHARMACY PER PROTOCOL XX ; Start 03/17/19 at 15:00 Vancomycin HCl 1.5 gm/Sodium Chloride 250 ml @ 83.333 mls/ hr Q24H IVPB Last administered on 03/18/19 22:25; Admin Dose 83.333 MLS/HR; Start 03/18/19 at 22:00; Status Hold Morphine Sulfate (morphine) 2 mg Q4H PRN IV SEVERE PAIN LEVEL 7-10 Last administered on 03/20/19 12:00; Admin Dose 2 MG; Start 03/18/19 at 12:00 Enoxaparin Sodium (Lovenox) 40 mg DAILY SC Last administered on 03/20/19 08:34; Admin Dose 40 MG; Start 03/18/19 at 15:30 Piperacillin Sod/ Tazobactam Sod 100 ml @ 200 mls/hr Q8 IVPB Last administered on 03/20/19 13:03; Admin Dose 200 MLS/HR; Start 03/19/19 at 14:00 Furosemide (Lasix) 20 mg DAILY PO Last administered on 03/20/19 08:30; Admin Dose 20 MG; Start 03/20/19 at 09:00 Albuterol/ Ipratropium (Duoneb) 3 ml Q4H RESP THERAPY PRN HHN SHORTNESS OF BREATH Last administered on 03/20/19 12:03; Admin Dose 3 ML; Start 03/20/19 at 11:00 Miscellaneous Information (*Rx Drug Level Order Reminder*) VANCO RANDOM W/ AM LABS... 0500 ONCE XX ; Start 03/21/19 at 05:00; Stop 03/21/19 at 05:01 ROBY MILLER MD March 20, 2019 13:05
--- NOTE | 2019-03-20 13:20 | PN ---
Date/Time of Note Date/Time of Note DATE: 03/20/19 TIME: 13:19 Assessment/Plan Lines/Catheters IV Catheter Type (from Nrsg): Saline Lock [place] in Place (from Nrsg): No Assessment/Plan Assessment/Plan Tricuspid valve endocarditis Status post valve repair Continue antibiotics Continue medical therapy Subjective 24 Hr Interval Summary Constitutional: no complaints, improved, ambulates, BM, flatus, urine output Pain Control: mild Exam/Review of Systems Vital Signs Vitals Vital Signs Date Temp Pulse Resp B/P (MAP) Pulse Ox O2 O2 Flow FiO2 Time Delivery Rate 03/20/19 98.7 116 17 154/88 92 12:32 (110) 03/20/19 Simple 6.0 12:04 Mask 03/17/19 100 17:33 Intake and Output 03/19/19 03/19/19 03/20/19 1515:00 23:00 07:00 IntakeIntake Total 220 ml 700 ml OutputOutput Total 600 ml 800 ml 1400 ml BalanceBalance -600 ml -580 ml -700 ml Exam ENMT: nl external ears & nose, nl lips & teeth, nl nasal mucosa & septum, mucosa pink and moist Neck: supple, non-tender Respiratory: clear to auscultation, normal air movement Gastrointestinal: soft, nl liver, spleen, non-tender Musculoskeletal: nl extremities to inspection, nl gait and stance Results Result Diagram: 03/20/19 0526 03/20/19 0526 JOHANNA DEAN MD March 20, 2019 13:20
[2019-03-21] VITALS (13 sets, daily range): BP systolic 108–126; BP diastolic 55–75; PULSE 83–100; RESP 17–24
[2019-03-21] MEDS: morphine 2 MG INJ IV PRN ×5 (01:04→23:09)
[2019-03-21] MEDS: PIPER-TAZO 3.375 GM IV (PMX) 100 ML IVPB SCH (05:00)
--- NOTE | 2019-03-21 07:17 | CONS ---
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 usual suspect in IVDA is staph or strep but pseudomonas and benjamin can also be seen continue with vanco/zosyn at present fevers have improved and WBC is improved today I will order WBC scan as pt c/o pain over the pacer site I will also order u/s of pacer site to see if there is fluid present 03/20 - GPC growing in all 3 sets of blood cx from 03/17, await ID MRSA in nasal continue with vanco/zosyn pt was seen in this hospital last month under a different MRN and he was evaluated for endocarditis at that time he had corynebacterium in two different sets of blood cx and had a MADINA which was neg for vegetations he was give two weeks of ceftriaxone for pneumonia, they also wondered if he had septic emboli or PE at that time he got an IVC filter but were planning to remove it because he did not have a PE but he left AMA u/s of around pacer site was neg for fluid collection WBC scan is pending 03/21 - WBC scan only has activity in the lung s.aureus is in the blood repeat blood cx on 03/18 are NGTD, repeat again continue with vanco, d/c zosyn 2) IVDA pt states he was tested in the last 1-2 months and was neg for HIV and he does not share his needles no hx of hepatitis either I will check into his prior hospitalization here that if it exists is under another MR# / - pt has another MRN and his HIV was neg in february he had corynebacterium in two different sets of blood cx then 3) pulmonary infiltrates PACS system is not working on two different computers, I need to see his CT's and CXR to see if these are c/w septic emboli or not vanco/zosyn should cover if he has pneumonia rather than septic emboli procalcitonin has been ordered also 03/20 - his prior chest CT last month shows that he has waxing and waning of pulmonary infiltrates and his cavitary lesions have improved slightly his pulmonary infiltrates are patchy and somewhat large which would be atypical for septic emboli his procalcitonin is very high but bacteremia will also elevated it continue with vanco/zosyn will check for atypical organisms with serology 03/21 - pt is able to bring up some phlegm will order cx s.aureus is likely the culprit continue with vanco, d/c zosyn but add levaquin for atypical coverage 4) ARF 03/21 this is improving Consultation Date/Type/Reason Admit Date/Time March 17, 2019 at 15:13 Initial Consult Date 03/19/19 Type of Consult ID Requesting Provider: ROBY MILLER MD Date/Time of Note DATE: 03/21/19 TIME: 07:11 24 HR Interval Summary Free Text/Dictation pt has cough somewhat productive of grayish phlegm when he blows his nose he gets dark blood no N, V appetite is good loose stools but not frequent Exam/Review of Systems Exam Vitals Vital Signs Date Temp Pulse Resp B/P (MAP) Pulse Ox O2 O2 Flow FiO2 Time Delivery Rate 03/21/19 89 04:00 03/21/19 98.3 17 111/61 97 03:32 (78) 03/21/19 12.0 01:34 03/20/19 Simple 20:00 Mask 03/17/19 100 17:33 Intake and Output 03/20/19 03/20/19 03/21/19 1515:00 23:00 07:00 IntakeIntake Total 700 ml 500 ml OutputOutput Total 800 ml 1350 ml BalanceBalance -100 ml -850 ml Constitutional: alert, oriented Eyes: nl sclera ENMT: mucosa pink and moist Respiratory: clear to auscultation Cardiovascular: regular rate and rhythm Gastrointestinal: soft, non-tender Results Result Diagram: 03/21/19 0527 03/21/19 0528 Results 24hrs Laboratory Tests Test 03/21/19 05:27 03/21/19 05:28 03/21/19 05:29 White Blood Count 12.6 H Red Blood Count 4.20 L Hemoglobin 10.9 L Hematocrit 34.8 L Mean Corpuscular Volume 82.9 Mean Corpuscular Hemoglobin 26.0 L Mean Corpuscular Hemoglobin Concent 31.3 L Red Cell Distribution Width 15.7 H Platelet Count 151 Mean Platelet Volume 10.4 Immature Granulocytes % 1.000 H Neutrophils % 75.6 Lymphocytes % 11.3 L Monocytes % 6.6 Eosinophils % 4.9 Basophils % 0.6 Nucleated Red Blood Cells % 0.6 H Immature Granulocytes # 0.130 H Neutrophils # 9.5 H Lymphocytes # 1.4 Monocytes # 0.8 Eosinophils # 0.6 H Basophils # 0.1 Nucleated Red Blood Cells # 0.1 H Sodium Level 138 Potassium Level 4.2 Chloride Level 109 Carbon Dioxide Level 20 L Anion Gap 9 Blood Urea Nitrogen 42 H Creatinine 1.96 H Est Glomerular Filtrat Rate mL/min 40 L Glucose Level 113 Calcium Level 8.5 Total Bilirubin 1.7 H Direct Bilirubin 1.00 H Indirect Bilirubin 0.7 Aspartate Amino Transf (AST/SGOT) 101 H Alanine Aminotransferase (ALT/SGPT) 63 Alkaline Phosphatase 185 H Total Protein 8.7 H Albumin 3.2 L Globulin 5.50 H Albumin/Globulin Ratio 0.58 Random Vancomycin Level 10.2 Medications Medication Current Medications IV Flush (NS 3 ml) 3 ml PER PROTOCOL IV ; Start 03/17/19 at 15:00 Oxycodone/ Acetaminophen (Percocet (5/ 325)) 2 tab Q6H PRN PO .SEVERE PAIN 7-10 Last administered on 03/20/19at 10:05; Admin Dose 2 TAB; Start 03/17/19 at 15:00 Vancomycin HCl (Vanco Iv Per Pharmacy) VANCOMYCIN PER PHARMACY PER PROTOCOL XX ; Start 03/17/19 at 15:00 Vancomycin HCl 1.5 gm/Sodium Chloride 250 ml @ 83.333 mls/ hr Q24H IVPB Last administered on 03/18/19at 22:25; Admin Dose 83.333 MLS/HR; Start 03/18/19 at 22:00; Status Hold Morphine Sulfate (morphine) 2 mg Q4H PRN IV SEVERE PAIN LEVEL 7-10 Last administered on 03/21/19at 05:15; Admin Dose 2 MG; Start 03/18/19 at 12:00 Enoxaparin Sodium (Lovenox) 40 mg DAILY SC Last administered on 03/20/19at 08:34; Admin Dose 40 MG; Start 03/18/19 at 15:30 Piperacillin Sod/ Tazobactam Sod 100 ml @ 200 mls/hr Q8 IVPB Last administered on 03/21/19at 05:00; Admin Dose 200 MLS/HR; Start 03/19/19 at 14:00 Furosemide (Lasix) 20 mg DAILY PO Last administered on 03/20/19at 08:30; Admin Dose 20 MG; Start 03/20/19 at 09:00 Albuterol/ Ipratropium (Duoneb) 3 ml Q4H RESP THERAPY PRN HHN SHORTNESS OF BREATH Last administered on 03/20/19at 12:03; Admin Dose 3 ML; Start 03/20/19 at 11:00 JANETH LOGAN MD March 21, 2019 07:17
[2019-03-21] MEDS ORDERED: LEVOFLOXACIN 500 MG TAB PO ONE (07:30)
[2019-03-21] MEDS: FUROSEMIDE 20 MG TAB PO SCH (08:05)
--- NOTE | 2019-03-21 08:17 | PN ---
DATE: 03/21/2019 SUBJECTIVE: The patient continues to be in worsening respiratory failure. Currently on face mask at 12 liters. No other events noted. The patient's urinary output has improved. OBJECTIVE: VITAL SIGNS: Blood pressure is 121/75, pulse 89, respirations 22, temperature 98.1. HEENT: Head is normocephalic. NECK: Supple. HEART: Regular rate. LUNGS: Show diminished breath sounds at the base. ABDOMEN: Soft, nontender to palpation without rebound or guarding. EXTREMITIES: Negative for clubbing, cyanosis, no edema. DERMATOLOGIC: No rashes. MUSCULOSKELETAL: No joint effusion. NEUROLOGIC: No change in exam. MEDICATIONS: Reviewed. LABORATORY DATA: Has been reviewed. ASSESSMENT AND PLAN: 1. Nonoliguric acute kidney injury with previous baseline creatinine of 1.16 mg/dL. Etiology of acut e kidney injury is secondary to acute tubular necrosis due to contrast-associated nephropathy. The p atient is currently in recovery phase of acute tubular necrosis. Urinary output has improved. Jewell nue current treatment plans, supportive care, renally dose all meds. 3. Anemia. Monitor hemoglobin and hematocrit levels. 4. Mineral bone disorder, monitor calcium and phosphorus levels. 5. Hypernatremia secondary to acute kidney injury, resolved. Continue to monitor. 6. Acute hypoxic respiratory failure secondary to pneumonia, septic emboli. The patient's respirato ry status continues to decline. Continue to monitor. Follow up with pulmonary. Continue oxygen, ne bulizers, antibiotics. 7. 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 Continue to monitor. Follow u p with cardiology. 8. Acute diastolic heart failure. Continue medical management. Continue diuretic regimen. 9. Elevated troponin likely NSTEMI type 2. Continue to monitor. 10. History of arrhythmia, status post pacemaker placement. 11. Endocarditis. Patient seen by CT surgery. Continue to monitor. Follow up recommendations. Dictated By: ELSIE CHRISTENSEN DO NR/NTS Conf#: [id number] DID#: [id number] CC: ROBY MILLER MD;*EndCC*
[2019-03-21] MEDS: ENOXAPARIN 40 MG/0.4 ML SYG SC SCH (08:19)
[2019-03-21] MEDS: ALBUTEROL/IPRATROPIUM (NEB) 3 ML AMP HHN PRN (10:57)
[2019-03-21] MEDS: VANCOMYCIN HCL 1.5 GM in SOD CHLORIDE 0.9% 250 ML IVPB SCH (12:20)
--- NOTE | 2019-03-21 12:42 | PN ---
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 Daily cultures Acute hypoxic respiratory failure with fever/sepsis: - 2/2 pneumoina and septic embolus as seen on CT-A. Continue abx. Given septic embolus not VTE will not give anticoagulation - O2 as needed CLAUDIA: - Likely from sepsis, perhaps immunologic phenomenon from endocarditis - Imaging suggests CKD H/o valve replacements and PPM; - Stable Result Diagram: 03/21/19 0527 03/21/19 0528 Results 24hrs Laboratory Tests Test 03/21/19 05:27 03/21/19 05:28 03/21/19 05:29 White Blood Count 12.6 H Red Blood Count 4.20 L Hemoglobin 10.9 L Hematocrit 34.8 L Mean Corpuscular Volume 82.9 Mean Corpuscular Hemoglobin 26.0 L Mean Corpuscular Hemoglobin Concent 31.3 L Red Cell Distribution Width 15.7 H Platelet Count 151 Mean Platelet Volume 10.4 Immature Granulocytes % 1.000 H Neutrophils % 75.6 Lymphocytes % 11.3 L Monocytes % 6.6 Eosinophils % 4.9 Basophils % 0.6 Nucleated Red Blood Cells % 0.6 H Immature Granulocytes # 0.130 H Neutrophils # 9.5 H Lymphocytes # 1.4 Monocytes # 0.8 Eosinophils # 0.6 H Basophils # 0.1 Nucleated Red Blood Cells # 0.1 H Phosphorus Level 4.4 Magnesium Level 2.1 Sodium Level 138 Potassium Level 4.2 Chloride Level 109 Carbon Dioxide Level 20 L Anion Gap 9 Blood Urea Nitrogen 42 H Creatinine 1.96 H Est Glomerular Filtrat Rate mL/min 40 L Glucose Level 113 Calcium Level 8.5 Total Bilirubin 1.7 H Direct Bilirubin 1.00 H Indirect Bilirubin 0.7 Aspartate Amino Transf (AST/SGOT) 101 H Alanine Aminotransferase (ALT/SGPT) 63 Alkaline Phosphatase 185 H Total Protein 8.7 H Albumin 3.2 L Globulin 5.50 H Albumin/Globulin Ratio 0.58 Random Vancomycin Level 10.2 Subjective 24 Hr Interval Summary Free Text/Dictation Breathing improving Hypoxia improving 85% on RA now Feels a bit better Exam/Review of Systems Exam Vitals Vital Signs Date Temp Pulse Resp B/P (MAP) Pulse Ox O2 O2 Flow FiO2 Time Delivery Rate 03/21/19 97.9 94 20 125/75 92 Nasal 11:51 (92) Cannula 03/21/19 5.0 10:58 03/17/19 100 17:33 Intake and Output 03/20/19 03/20/19 03/21/19 1515:00 23:00 07:00 IntakeIntake Total 100 ml 700 ml 500 ml OutputOutput Total 800 ml 1350 ml BalanceBalance 100 ml -100 ml -850 ml Results Results 24hrs Laboratory Tests Test 03/21/19 05:27 03/21/19 05:28 03/21/19 05:29 White Blood Count 12.6 H Red Blood Count 4.20 L Hemoglobin 10.9 L Hematocrit 34.8 L Mean Corpuscular Volume 82.9 Mean Corpuscular Hemoglobin 26.0 L Mean Corpuscular Hemoglobin Concent 31.3 L Red Cell Distribution Width 15.7 H Platelet Count 151 Mean Platelet Volume 10.4 Immature Granulocytes % 1.000 H Neutrophils % 75.6 Lymphocytes % 11.3 L Monocytes % 6.6 Eosinophils % 4.9 Basophils % 0.6 Nucleated Red Blood Cells % 0.6 H Immature Granulocytes # 0.130 H Neutrophils # 9.5 H Lymphocytes # 1.4 Monocytes # 0.8 Eosinophils # 0.6 H Basophils # 0.1 Nucleated Red Blood Cells # 0.1 H Phosphorus Level 4.4 Magnesium Level 2.1 Sodium Level 138 Potassium Level 4.2 Chloride Level 109 Carbon Dioxide Level 20 L Anion Gap 9 Blood Urea Nitrogen 42 H Creatinine 1.96 H Est Glomerular Filtrat Rate mL/min 40 L Glucose Level 113 Calcium Level 8.5 Total Bilirubin 1.7 H Direct Bilirubin 1.00 H Indirect Bilirubin 0.7 Aspartate Amino Transf (AST/SGOT) 101 H Alanine Aminotransferase (ALT/SGPT) 63 Alkaline Phosphatase 185 H Total Protein 8.7 H Albumin 3.2 L Globulin 5.50 H Albumin/Globulin Ratio 0.58 Random Vancomycin Level 10.2 Medications Medication Current Medications IV Flush (NS 3 ml) 3 ml PER PROTOCOL IV ; Start 03/17/19 at 15:00 Oxycodone/ Acetaminophen (Percocet (5/ 325)) 2 tab Q6H PRN PO .SEVERE PAIN 7-10 Last administered on 03/20/19at 10:05; Admin Dose 2 TAB; Start 03/17/19 at 15:00 Vancomycin HCl (Vanco Iv Per Pharmacy) VANCOMYCIN PER PHARMACY PER PROTOCOL XX ; Start 03/17/19 at 15:00 Morphine Sulfate (morphine) 2 mg Q4H PRN IV SEVERE PAIN LEVEL 7-10 Last administered on 03/21/19at 10:37; Admin Dose 2 MG; Start 03/18/19 at 12:00 Enoxaparin Sodium (Lovenox) 40 mg DAILY SC Last administered on 03/21/19at 08:19; Admin Dose 40 MG; Start 03/18/19 at 15:30 Furosemide (Lasix) 20 mg DAILY PO Last administered on 03/21/19 08:05; Admin Dose 20 MG; Start 03/20/19 at 09:00 Albuterol/ Ipratropium (Duoneb) 3 ml Q4H RESP THERAPY PRN HHN SHORTNESS OF BREATH Last administered on 03/21/19at 10:57; Admin Dose 3 ML; Start 03/20/19 at 11:00 Levofloxacin (Levaquin) 500 mg DAILY@06 PO ; Start 03/22/19 at 06:00 Vancomycin HCl 1.5 gm/Sodium Chloride 250 ml @ 83.333 mls/ hr Q24H IVPB Last administered on 03/21/19at 12:20; Admin Dose 83.333 MLS/HR; Start 03/21/19 at 12:00 ROBY MILLER MD March 21, 2019 12:42
--- NOTE | 2019-03-21 14:25 | CONS ---
Consult Date/Type/Reason Admit Date/Time March 17, 2019 at 15:13 Initial Consult Date 03/17/19 Type of Consultation: cv Requesting Provider: ROBY MILLER MD Date/Time of Note DATE: 03/21/19 TIME: 14:23 Subjective Interventional cardiology follow-up progress note Subjective: Discussed with the staff and telemetry was reviewed. Patient remains in /NSR Discussed with physicians Patient has less respiratory distress and in on oxygen NC only Objective: General: Young gentleman no acute distress HEENT: NC/AT. pupils are equal. round. NECK: no stridor. CV: RRR systolic murmur; no gallop or rubs. PULM: +rhonchi. GI: SOFT, NT, ND, no rebound or guarding Extremity: trace B/L LE edema. no clubbing. neuro: awake and alert, OX3. Psych: Calm now rectal: deferred Echocardiogram was personally reviewed which showed: There is severe enlargement of right atrium. Severe enlargement of right ventricle. Normal left ventricular cavity size. Normal left ventricular wall thickness. Moderate global left ventricular systolic dysfunction. Paradoxical septal motion consistent with IVCD or bundle branch block. Ejection fraction is visually estimated at 45 %. Tissue Doppler/Mitral Doppler indices are consistent with restrictive physiology with markedly elevated left atrial pressure (Stage III-IV diastolic dysfunction). Mild mitral leaflet calcification. Mild mitral annular calcification. Trace mitral regurgitation. No hemodynamically significant aortic stenosis by doppler. Non coronary cusp appears moderately calcified. Trileaflet aortic valve. Estimated peak PA systolic pressure 53 mmHg. Tricuspid valve repair appears moderately thickened. There is moderate to severe tricuspid regurgitation. Possible echogenic structure is seen on the tricuspid valve with vegetation. Inferior vena cava without respiratory collapse, however, patient on ventilator. CT pulmonary angiogram done in the emergency room showed: Extremely limited evaluation of the segmental and subsegmental pulmonary arteries and lung parenchyma secondary to motion. Repeat exam can be considered. Potential nonocclusive filling defect in the right descending pulmonary artery, suggesting pulmonary embolus. Evaluation is suboptimal secondary to motion. Multiple prominent lymph nodes in the mediastinum. Etiology is uncertain. These could reflect reactive lymph nodes. Diffuse mild fat stranding of the mediastinal fat. Finding could reflect inflammation or potentially scarring from prior surgery. Extensive ground-glass opacities throughout both lungs. Findings suggest multifocal infection/inflammation. Atypical infection is not excluded. 4.3 cm ground-glass nodule in the superior segment of the right lower lobe and 1.5 cm subpleural ground-glass nodule in the posterior left upper lobe. These likely reflect inflammatory nodules. Close continued follow-up with repeat exam in 1 month to assess stability can be considered. 1.9 cm bleb or cavitation containing an 8 mm nodule versus nodular debris. Mycetoma is not excluded. A few additional scattered blebs or cavitations in the right upper lobe, right middle lobe and right lower lobe. Prominent appearance of a partially visualized liver and spleen. Findings could reflect hepatic splenomegaly of uncertain etiology. If further characterization is needed ultrasound or CT of the abdomen could be helpful. Ultrasound lower extremity did not show any DVT Objective Vitals Vital Signs Date Temp Pulse Resp B/P (MAP) Pulse Ox O2 O2 Flow FiO2 Time Delivery Rate 03/21/19 94 13:19 03/21/19 97.9 20 125/75 92 Nasal 11:51 (92) Cannula 03/21/19 5.0 10:58 03/17/19 100 17:33 Intake and Output 03/20/19 03/20/19 03/21/19 1515:00 23:00 07:00 IntakeIntake Total 100 ml 700 ml 500 ml OutputOutput Total 800 ml 1350 ml BalanceBalance 100 ml -100 ml -850 ml Results/Medications Result Diagram: 03/21/19 0527 03/21/19 0528 Results 24 hrs Laboratory Tests Test 03/21/19 05:27 03/21/19 05:28 03/21/19 05:29 White Blood Count 12.6 H Red Blood Count 4.20 L Hemoglobin 10.9 L Hematocrit 34.8 L Mean Corpuscular Volume 82.9 Mean Corpuscular Hemoglobin 26.0 L Mean Corpuscular Hemoglobin Concent 31.3 L Red Cell Distribution Width 15.7 H Platelet Count 151 Mean Platelet Volume 10.4 Immature Granulocytes % 1.000 H Neutrophils % 75.6 Lymphocytes % 11.3 L Monocytes % 6.6 Eosinophils % 4.9 Basophils % 0.6 Nucleated Red Blood Cells % 0.6 H Immature Granulocytes # 0.130 H Neutrophils # 9.5 H Lymphocytes # 1.4 Monocytes # 0.8 Eosinophils # 0.6 H Basophils # 0.1 Nucleated Red Blood Cells # 0.1 H Phosphorus Level 4.4 Magnesium Level 2.1 Sodium Level 138 Potassium Level 4.2 Chloride Level 109 Carbon Dioxide Level 20 L Anion Gap 9 Blood Urea Nitrogen 42 H Creatinine 1.96 H Est Glomerular Filtrat Rate mL/min 40 L Glucose Level 113 Calcium Level 8.5 Total Bilirubin 1.7 H Direct Bilirubin 1.00 H Indirect Bilirubin 0.7 Aspartate Amino Transf (AST/SGOT) 101 H Alanine Aminotransferase (ALT/SGPT) 63 Alkaline Phosphatase 185 H Total Protein 8.7 H Albumin 3.2 L Globulin 5.50 H Albumin/Globulin Ratio 0.58 Random Vancomycin Level 10.2 Home Meds Reported Medications Aspirin* (Aspirin* EC) 81 Mg Tablet.dr, 81 MG PO DAILY, TAB TAKE 2 OR 3 TIMES A DAY 04/27/18 Medications Current Medications IV Flush (NS 3 ml) 3 ml PER PROTOCOL IV ; Start 03/17/19 at 15:00 Oxycodone/ Acetaminophen (Percocet (5/ 325)) 2 tab Q6H PRN PO .SEVERE PAIN 7-10 Last administered on 03/20/19 10:05; Admin Dose 2 TAB; Start 03/17/19 at 15:00 Vancomycin HCl (Vanco Iv Per Pharmacy) VANCOMYCIN PER PHARMACY PER PROTOCOL XX ; Start 03/17/19 at 15:00 Morphine Sulfate (morphine) 2 mg Q4H PRN IV SEVERE PAIN LEVEL 7-10 Last administered on 03/21/19at 10:37; Admin Dose 2 MG; Start 03/18/19 at 12:00 Enoxaparin Sodium (Lovenox) 40 mg DAILY SC Last administered on 03/21/19 08:19; Admin Dose 40 MG; Start 03/18/19 at 15:30 Furosemide (Lasix) 20 mg DAILY PO Last administered on 03/21/19at 08:05; Admin Dose 20 MG; Start 03/20/19 at 09:00 Albuterol/ Ipratropium (Duoneb) 3 ml Q4H RESP THERAPY PRN HHN SHORTNESS OF BREATH Last administered on 03/21/19at 10:57; Admin Dose 3 ML; Start 03/20/19 at 11:00 Levofloxacin (Levaquin) 500 mg DAILY@06 PO ; Start 03/22/19 at 06:00 Vancomycin HCl 1.5 gm/Sodium Chloride 250 ml @ 83.333 mls/ hr Q24H IVPB Last administered on 5/17/19at 12:20; Admin Dose 83.333 MLS/HR; Start 03/21/19 at 12:00 Assessment/Plan Hospital Course (Demo Recall) 1. History of tricuspid valve replacement for endocarditis 2. 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 Fever chills respiratory distress rule out endocarditis of tricuspid valve versus others 4. Pneumonia 5. Possible pulmonary emboli ? related to septic emboli versus others 6. Respiratory distress 7. History of heart block status post permanent pacemaker 8. Acute renal failure: Probably due to ATN 9. Mildly abnormal troponin secondary to above 10. Sepsis secondary to above Recommendations: Antibiotic management as per ID rec Continue with oxygen supplement. No evidence of DVT seen on LE ultrasound Thank you for his referral. We will continue to follow along with you as needed over the weekend LON MENDOZA MD [facility] LON MENDOZA MD March 21, 2019 14:25
[2019-03-22] VITALS (13 sets, daily range): BP systolic 119–149; BP diastolic 74–99; PULSE 83–104; RESP 18–22
[2019-03-22] MEDS: morphine 2 MG INJ IV PRN ×4 (03:27→21:45)
[2019-03-22] MEDS: LEVOFLOXACIN 500 MG TAB PO SCH (05:28)
[2019-03-22] MEDS: FUROSEMIDE 20 MG TAB PO SCH (09:05)
--- NOTE | 2019-03-22 10:46 | PN ---
DATE: 03/22/2019 SUBJECTIVE: The patient is clinically improving, currently on 4 liters nasal cannula. No other even ts noted. OBJECTIVE: VITAL SIGNS: Blood pressure is 149/83, respiration 19, pulse 83, temperature 97.8. HEENT: Head is normocephalic. NECK: Supple. HEART: Regular rate. LUNGS: Show diminished breath sounds at the base. ABDOMEN: Soft, nontender to palpation without rebound or guarding. EXTREMITIES: Negative for clubbing, cyanosis, no edema. DERMATOLOGIC: No rashes. MUSCULOSKELETAL: No joint effusions. NEUROLOGIC: No change in exam. MEDICATIONS: Have been reviewed. LABORATORY DATA: Has been reviewed. ASSESSMENT AND PLAN: 1. Nonoliguric acute kidney injury with previous baseline creatinine 1.16 mg/dL. Etiology of acute kidney injury is secondary to acute tubular necrosis due to contrast-associated nephropathy. The pat ient currently is in recovery phase of acute tubular necrosis. Continue current plans, supportive ca re, renally dose all meds. 2. Anemia. Monitor hemoglobin and hematocrit levels. 3. Mineral bone disorder. Monitor calcium and phosphorus levels. 4. Hyponatremia secondary to acute kidney injury causing decreased free water urine excretion. Cont inue to monitor. 5. Acute hypoxemic respiratory failure secondary to pneumonia, septic emboli. The patient's respira tory status is improved. Continue current medical management. Continue oxygen and nebulizers, antib iotics. 6. Endocarditis. Continue to monitor, continue antibiotics. Follow up with CT surgery. 7. Acute diastolic heart failure. Continue medical management. Continue diuretic therapy. 8. NSTEMI type 2. 9. History of arrhythmia. Continue to monitor. Dictated By: ELSIE CHRISTENSEN DO NR/NTS Conf#: [id number] DID#: [id number] CC: ROBY MILLER MD;*EndCC*
[2019-03-22] MEDS: VANCOMYCIN HCL 1.5 GM in SOD CHLORIDE 0.9% 250 ML IVPB SCH (12:44)
--- NOTE | 2019-03-22 14:51 | PN ---
Date/Time of Note Date/Time of Note DATE: 03/22/19 TIME: 14:46 Assessment/Plan VTE Prophylaxis Risk score (from Ns)>0 risk: 3 SCD applied (from Nsg): Yes Pharmacological prophylaxis: heparin Lines/Catheters IV Catheter Type (from Nrs): Saline Lock Urinary Cath still in place: No Assessment/Plan Hospital Course EXAM: Uncomfortable appearing, a bit tachypneic Lungs clear Tachy, regular PPM No edema 28 yo male with h/o valve replacements and PPM following endocarditis in 2017 (specifics unclear) who presents today with fever, tachypnea, and hypoxia with pulmonary infiltrates following IV meth use Endocarditis: - 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 Daily cultures Acute hypoxic respiratory failure with fever/sepsis: - Repeat CXR given worsenign stauts today - 2/2 pneumoina and septic embolus as seen on CT-A. Continue abx. Given septic embolus not VTE will not give anticoagulation - O2 as needed CLAUDIA: - Likely from sepsis, perhaps immunologic phenomenon from endocarditis - Imaging suggests CKD H/o valve replacements and PPM; - Stable Result Diagram: 03/22/1952703/22/19527 Results 24hrs Laboratory Tests Test 03/22/19 05:28 White Blood Count 11.3 H Red Blood Count 4.15 L Hemoglobin 10.9 L Hematocrit 34.1 L Mean Corpuscular Volume 82.2 Mean Corpuscular Hemoglobin 26.3 L Mean Corpuscular Hemoglobin Concent 32.0 Red Cell Distribution Width 15.7 H Platelet Count 158 Mean Platelet Volume 10.4 Immature Granulocytes % 4.200 H Neutrophils % 67.2 Lymphocytes % 13.6 L Monocytes % 10.3 Eosinophils % 4.1 Basophils % 0.6 Nucleated Red Blood Cells % 1.4 H Immature Granulocytes # 0.470 H Neutrophils # 7.6 H Lymphocytes # 1.5 Monocytes # 1.2 H Eosinophils # 0.5 Basophils # 0.1 Nucleated Red Blood Cells # 0.2 H Sodium Level 133 L Potassium Level 4.0 Chloride Level 104 Carbon Dioxide Level 22 Anion Gap 7 Blood Urea Nitrogen 31 #H Creatinine 1.46 H Est Glomerular Filtrat Rate mL/min 57 L Glucose Level 104 Calcium Level 8.5 Subjective 24 Hr Interval Summary Free Text/Dictation Respiratory status worsening more SOB, tachypnea Exam/Review of Systems Exam Vitals Vital Signs Date Temp Pulse Resp B/P (MAP) Pulse Ox O2 O2 Flow FiO2 Time Delivery Rate 03/22/19 89 12:01 03/22/19 98.8 20 138/99 97 Nasal 12:00 (112) Cannula 03/22/19 2.0 08:11 Intake and Output 03/21/19 03/21/19 03/22/19 1515:00 23:00 07:00 IntakeIntake Total 1650 ml OutputOutput Total 1800 ml 400 ml BalanceBalance -150 ml -400 ml Results Results 24hrs Laboratory Tests Test 03/22/19 05:28 White Blood Count 11.3 H Red Blood Count 4.15 L Hemoglobin 10.9 L Hematocrit 34.1 L Mean Corpuscular Volume 82.2 Mean Corpuscular Hemoglobin 26.3 L Mean Corpuscular Hemoglobin Concent 32.0 Red Cell Distribution Width 15.7 H Platelet Count 158 Mean Platelet Volume 10.4 Immature Granulocytes % 4.200 H Neutrophils % 67.2 Lymphocytes % 13.6 L Monocytes % 10.3 Eosinophils % 4.1 Basophils % 0.6 Nucleated Red Blood Cells % 1.4 H Immature Granulocytes # 0.470 H Neutrophils # 7.6 H Lymphocytes # 1.5 Monocytes # 1.2 H Eosinophils # 0.5 Basophils # 0.1 Nucleated Red Blood Cells # 0.2 H Sodium Level 133 L Potassium Level 4.0 Chloride Level 104 Carbon Dioxide Level 22 Anion Gap 7 Blood Urea Nitrogen 31 #H Creatinine 1.46 H Est Glomerular Filtrat Rate mL/min 57 L Glucose Level 104 Calcium Level 8.5 Medications Medication Current Medications IV Flush (NS 3 ml) 3 ml PER PROTOCOL IV ; Start 03/17/19 at 15:00 Oxycodone/ Acetaminophen (Percocet (5/ 325)) 2 tab Q6H PRN PO .SEVERE PAIN 7-10 Last administered on 03/20/19at 10:05; Admin Dose 2 TAB; Start 03/17/19 at 15:00 Vancomycin HCl (Vanco Iv Per Pharmacy) VANCOMYCIN PER PHARMACY PER PROTOCOL XX ; Start 03/17/19 at 15:00 Morphine Sulfate (morphine) 2 mg Q4H PRN IV SEVERE PAIN LEVEL 7-10 Last administered on 03/22/19at 12:53; Admin Dose 2 MG; Start 5/14/19 at 12:00 Enoxaparin Sodium (Lovenox) 40 mg DAILY SC Last administered on 03/21/19 08:19; Admin Dose 40 MG; Start 03/18/19 at 15:30; Status Hold Furosemide (Lasix) 20 mg DAILY PO Last administered on 03/22/19at 09:05; Admin Dose 20 MG; Start 03/20/19 at 09:00 Albuterol/ Ipratropium (Duoneb) 3 ml Q4H RESP THERAPY PRN HHN SHORTNESS OF BREATH Last administered on 03/21/19at 10:57; Admin Dose 3 ML; Start 03/20/19 at 11:00 Levofloxacin (Levaquin) 500 mg DAILY@06 PO Last administered on 03/22/19at 05:28; Admin Dose 500 MG; Start 03/22/19 at 06:00 Vancomycin HCl 1.5 gm/Sodium Chloride 250 ml @ 83.333 mls/ hr Q24H IVPB Last administered on 03/22/19at 12:44; Admin Dose 83.333 MLS/HR; Start 03/21/19 at 12:00 ROBY MILLER MD March 22, 2019 14:51
[2019-03-23] VITALS (12 sets, daily range): BP systolic 120–143; BP diastolic 74–94; PULSE 62–110; RESP 17–20
[2019-03-23] MEDS: LEVOFLOXACIN 500 MG TAB PO SCH (06:02)
[2019-03-23] MEDS: morphine 2 MG INJ IV PRN ×2 (08:31→17:28)
[2019-03-23] MEDS: FUROSEMIDE 20 MG TAB PO SCH (08:36)
[2019-03-23] MEDS: CEFTRIAXONE 2 GM/50 ML (PMX) 50 ML IVPB SCH (12:18)
--- NOTE | 2019-03-23 12:56 | PN ---
Date/Time of Note Date/Time of Note DATE: 03/23/19 TIME: 12:55 Assessment/Plan VTE Prophylaxis Risk score (from Nsg)>0 risk: 3 SCD applied (from Nsg): Yes Pharmacological prophylaxis: heparin Lines/Catheters IV Catheter Type (from Nrsg): Saline Lock Urinary Cath still in place: No Assessment/Plan Hospital Course EXAM: Uncomfortable appearing, a bit tachypneic Lungs clear Tachy, regular PPM No edema 28 yo male with h/o valve replacements and PPM following endocarditis in 2017 (specifics unclear) who presents today with fever, tachypnea, and hypoxia with pulmonary infiltrates following IV meth use Endocarditis with Staph Aureus bacteremia: - 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 Daily cultures Acute hypoxic respiratory failure with fever/sepsis: - 2/2 pneumoina and septic embolus as seen on CT-A. Continue abx per Dr Hastings. Given septic embolus not VTE will not give anticoagulation - O2 as needed CLAUDIA: - Likely from sepsis, perhaps immunologic phenomenon from endocarditis - Imaging suggests CKD H/o valve replacements and PPM; - Stable Result Diagram: 03/22/1952703/22/19527 Subjective 24 Hr Interval Summary Free Text/Dictation Stable Breathing improved a bit Exam/Review of Systems Exam Vitals Vital Signs Date Temp Pulse Resp B/P (MAP) Pulse Ox O2 O2 Flow FiO2 Time Delivery Rate 03/23/19 98.5 103 20 141/90 95 Nasal 11:14 (107) Cannula 03/23/19 5.0 04:06 Intake and Output 03/22/19 03/22/19 03/23/19 1515:00 23:00 07:00 IntakeIntake Total 1800 ml 2500 ml OutputOutput Total 450 ml 2600 ml 2650 ml BalanceBalance -450 ml -800 ml -150 ml Medications Medication Current Medications IV Flush (NS 3 ml) 3 ml PER PROTOCOL IV ; Start 03/17/19 at 15:00 Oxycodone/ Acetaminophen (Percocet (5/ 325)) 2 tab Q6H PRN PO .SEVERE PAIN 7-10 Last administered on 03/20/19at 10:05; Admin Dose 2 TAB; Start 03/17/19 at 15:00 Morphine Sulfate (morphine) 2 mg Q4H PRN IV SEVERE PAIN LEVEL 7-10 Last administered on 03/23/19 08:31; Admin Dose 2 MG; Start 03/18/19 at 12:00 Enoxaparin Sodium (Lovenox) 40 mg DAILY SC Last administered on 03/21/19 08:19; Admin Dose 40 MG; Start 03/18/19 at 15:30; Status Hold Furosemide (Lasix) 20 mg DAILY PO Last administered on 03/23/19 08:36; Admin Dose 20 MG; Start 03/20/19 at 09:00 Albuterol/ Ipratropium (Duoneb) 3 ml Q4H RESP THERAPY PRN HHN SHORTNESS OF BREATH Last administered on 03/21/19 10:57; Admin Dose 3 ML; Start 03/20/19 at 11:00 Levofloxacin (Levaquin) 500 mg DAILY@06 PO Last administered on 03/23/19 06:02; Admin Dose 500 MG; Start 03/22/19 at 06:00 Ceftriaxone Sodium 50 ml @ 100 mls/hr Q24H IVPB Last administered on 03/23/19 12:18; Admin Dose 100 MLS/HR; Start 03/23/19 at 11:00 ROBY MILLER MD March 23, 2019 12:56
--- NOTE | 2019-03-23 13:41 | PN ---
DATE: 03/23/2019 SUBJECTIVE: The patient is stable. The patient remains on 4 liters nasal cannula. Continues to hav e episodes of hypoxemia. No other events noted. OBJECTIVE: VITAL SIGNS: Blood pressure is 143/92, respirations 20, pulse 62, temperature 98.0. HEENT: Head is normocephalic. NECK: Supple. HEART: Regular rate. LUNGS: Show diminished breath sounds at the base. ABDOMEN: Soft, nontender to palpation without rebound or guarding. EXTREMITIES: Negative for clubbing, cyanosis. Trace edema. DERMATOLOGIC: No rashes. MUSCULOSKELETAL: No joint effusions. NEUROLOGIC: No change in exam. MEDICATIONS: The patient's medications have been reviewed. LABORATORY DATA: Has been reviewed. ASSESSMENT AND PLAN: 1. Nonoliguric acute kidney injury. Previous baseline creatinine 1.16 mg per deciliter. Etiology o f acute kidney injury is secondary to acute tubular necrosis due to contrast-associated nephropathy. The patient is in recovery phase of acute tubular necrosis. Continue current treatment plan and sup portive care, renally dose all medication. 2. Anemia. Monitor hemoglobin and hematocrit levels. 3. Mineral bone disorder, monitor calcium and phosphorus levels. 4. Hyponatremia secondary to acute kidney injury causing decreased free water urinary excretion. Co ntinue to monitor. 5. Acute hypoxemic respiratory failure secondary to pneumonia, septic emboli. The patient's respira tory status is stable. Continue current treatment plan. 6. Endocarditis. Continue current antibiotic regimen. 7. Acute diastolic heart failure. Continue medical management, continue diuretic therapy. 8. Non-STEMI, type 2. 9. History of arrhythmia. Continue to monitor. Dictated By: ELSIE CHRISTENSEN DO NR/NTS Conf#: [id number] DID#: [id number] CC: LON MENDOZA MD; ROBY MILLER MD;*End*
[2019-03-23] MEDS: ACETYLCYSTEINE 20% 4 ML VIAL NEB SCH (22:32)
[2019-03-23] MEDS: ALBUTEROL/IPRATROPIUM (NEB) 3 ML AMP HHN PRN (22:32)
[2019-03-23] MEDS: GUAIFENESIN/DM 5ML CUP PO PRN (23:58)
[2019-03-24] VITALS (11 sets, daily range): BP systolic 115–141; BP diastolic 76–89; PULSE 57–115; RESP 17–20
[2019-03-24] MEDS: ACETYLCYSTEINE 20% 4 ML VIAL NEB SCH ×5 (01:40→19:44)
[2019-03-24] MEDS: ALBUTEROL/IPRATROPIUM (NEB) 3 ML AMP HHN PRN (01:40)
[2019-03-24] MEDS: morphine 2 MG INJ IV PRN ×3 (02:06→19:01)
[2019-03-24] MEDS: LEVOFLOXACIN 500 MG TAB PO SCH (06:05)
[2019-03-24] MEDS ORDERED: ALBUTEROL/IPRATROPIUM (NEB) 3 ML AMP HHN PRN ×2 (06:30→08:00)
--- NOTE | 2019-03-24 07:02 | CONS ---
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 usual suspect in IVDA is staph or strep but pseudomonas and benjamin can also be seen continue with vanco/zosyn at present fevers have improved and WBC is improved today I will order WBC scan as pt c/o pain over the pacer site I will also order u/s of pacer site to see if there is fluid present 03/20 - GPC growing in all 3 sets of blood cx from 03/17, await ID MRSA in nasal continue with vanco/zosyn pt was seen in this hospital last month under a different MRN and he was evaluated for endocarditis at that time he had corynebacterium in two different sets of blood cx and had a MADINA which was neg for vegetations he was give two weeks of ceftriaxone for pneumonia, they also wondered if he had septic emboli or PE at that time he got an IVC filter but were planning to remove it because he did not have a PE but he left AMA u/s of around pacer site was neg for fluid collection WBC scan is pending 03/21 - WBC scan only has activity in the lung s.aureus is in the blood repeat blood cx on 03/18 are NGTD, repeat again continue with vanco, d/c zosyn 03/24- MSSA in blood, vanco stopped yesterday and switched to ceftriaxone 2gm q24 hours repeat blood cx all remain NGTD 2) IVDA pt states he was tested in the last 1-2 months and was neg for HIV and he does not share his needles no hx of hepatitis either I will check into his prior hospitalization here that if it exists is under another MR# / - pt has another MRN and his HIV was neg in february he had corynebacterium in two different sets of blood cx then 3) pulmonary infiltrates PACS system is not working on two different computers, I need to see his CT's and CXR to see if these are c/w septic emboli or not vanco/zosyn should cover if he has pneumonia rather than septic emboli procalcitonin has been ordered also 03/20 - his prior chest CT last month shows that he has waxing and waning of pulmonary infiltrates and his cavitary lesions have improved slightly his pulmonary infiltrates are patchy and somewhat large which would be atypical for septic emboli his procalcitonin is very high but bacteremia will also elevated it continue with vanco/zosyn will check for atypical organisms with serology 03/21 - pt is able to bring up some phlegm will order cx s.aureus is likely the culprit continue with vanco, d/c zosyn but add levaquin for atypical coverage 03/24 - sputum cx has c.alb only continue with levaquin and ceftriaxone, legionella was neg 4) ARF 03/21 this is improving 03/24 - resolved Consultation Date/Type/Reason Admit Date/Time March 17, 2019 at 15:13 Initial Consult Date 03/19/19 Type of Consult ID Requesting Provider: ROBY MILLER MD Date/Time of Note DATE: 03/24/19 TIME: 06:58 24 HR Interval Summary Free Text/Dictation pt's breathing is a bit better his CP is better too but has pain whenever he coughs no N, V, dysphagia one BM yesterday it was loose, no abd pain Exam/Review of Systems Exam Vitals Vital Signs Date Temp Pulse Resp B/P (MAP) Pulse Ox O2 O2 Flow FiO2 Time Delivery Rate 03/24/19 102 04:00 03/24/19 98.1 17 137/88 96 03:47 (104) 03/24/19 4.0 01:40 03/24/19 Nasal 01:40 Cannula Intake and Output 03/23/19 03/23/19 03/24/19 1515:00 23:00 07:00 IntakeIntake Total 50 ml 2400 ml 2000 ml OutputOutput Total 1750 ml BalanceBalance 50 ml 650 ml 2000 ml Constitutional: alert, oriented Eyes: nl sclera ENMT: mucosa pink and moist Respiratory: clear to auscultation Cardiovascular: regular rate and rhythm Gastrointestinal: soft, non-tender Results Result Diagram: 03/24/19 0446 03/24/19 0446 Results 24hrs Laboratory Tests Test 03/24/19 04:46 White Blood Count 16.6 #H Red Blood Count 4.45 L Hemoglobin 11.7 L Hematocrit 35.9 L Mean Corpuscular Volume 80.7 L Mean Corpuscular Hemoglobin 26.3 L Mean Corpuscular Hemoglobin Concent 32.6 Red Cell Distribution Width 15.4 H Platelet Count 218 # Mean Platelet Volume 9.8 Immature Granulocytes % 5.200 H Neutrophils % Lymphocytes % Monocytes % Eosinophils % Basophils % Nucleated Red Blood Cells % 0.2 H Immature Granulocytes # 0.860 H Neutrophils # Lymphocytes # Monocytes # Eosinophils # Basophils # Nucleated Red Blood Cells # Sodium Level 134 L Potassium Level 4.1 Chloride Level 103 Carbon Dioxide Level 21 Anion Gap 10 Blood Urea Nitrogen 19 # Creatinine 1.08 Est Glomerular Filtrat Rate mL/min > 60 Glucose Level 93 Calcium Level 8.4 Phosphorus Level 4.0 Magnesium Level 1.6 L Medications Medication Current Medications IV Flush (NS 3 ml) 3 ml PER PROTOCOL IV ; Start 03/17/19 at 15:00 Oxycodone/ Acetaminophen (Percocet (5/ 325)) 2 tab Q6H PRN PO .SEVERE PAIN 7-10 Last administered on 03/20/19 10:05; Admin Dose 2 TAB; Start 03/17/19 at 15:00 Morphine Sulfate (morphine) 2 mg Q4H PRN IV SEVERE PAIN LEVEL 7-10 Last adm inistered on 03/24/19 02:06; Admin Dose 2 MG; Start 03/18/19 at 12:00 Enoxaparin Sodium (Lovenox) 40 mg DAILY SC Last administered on 03/21/19 08:19; Admin Dose 40 MG; Start 03/18/19 at 15:30; Status Hold Furosemide (Lasix) 20 mg DAILY PO Last administered on 03/23/19 08:36; Admin Dose 20 MG; Start 03/20/19 at 09:00 Levofloxacin (Levaquin) 500 mg DAILY@06 PO Last administered on 03/24/19 0 6:05; Admin Dose 500 MG; Start 03/22/19 at 06:00 Ceftriaxone Sodium 50 ml @ 100 mls/hr Q24H IVPB Last administered on 03/23/19 12:18; Admin Dose 100 MLS/HR; Start 03/23/19 at 11:00 Acetylcysteine (Mucomyst) 2 ml Q6H RESP THERAPY NEB Last administered on 03/24/19at 01:40; Admin Dose 2 ML; Start 03/23/19 at 22:00; Stop 03/25/19 at 14:00 Guaifenesin/ Dextromethorphan (Robitussin Dm Liquid Cup) 5 ml Q4H PRN PO COUGH Last administered on 5/19/19at 23:58; Admin Dose 5 ML; Start 03/23/19 at 22:00 Albuterol/ Ipratropium (Duoneb) 3 ml Q4H RESP THERAPY PRN HHN SHORTNESS OF BREATH; Start 03/24/19 at 06:30 Albuterol/ Ipratropium (Duoneb) 3 ml Q6H RESP THERAPY HHN ; Start 03/24/19 at 08:00; Stop 03/25/19 at 14:00 JANETH LOGAN MD March 24, 2019 07:02
[2019-03-24] MEDS: ALBUTEROL/IPRATROPIUM (NEB) 3 ML AMP HHN SCH ×4 (07:59→19:44)
[2019-03-24] MEDS: FUROSEMIDE 20 MG TAB PO SCH (08:30)
[2019-03-24] MEDS ORDERED: MAGNESIUM SULFATE 2 GM/50 ML 50 ML IVPB ONE (09:30)
--- NOTE | 2019-03-24 10:29 | PN ---
DATE: 03/24/2019 SUBJECTIVE: The patient is stable, no events overnight. No fevers, chills, nausea, vomiting. The p atient is currently stable on 4 liters nasal cannula. No other events noted. OBJECTIVE: VITAL SIGNS: Blood pressure is 137/89, pulse 101, respirations 20, temperature 98.6. HEENT: Head is normocephalic. NECK: Supple. HEART: Regular rate. LUNGS: Show diminished breath sounds at base. ABDOMEN: Soft, nontender to palpation without rebound or guarding. EXTREMITIES: Negative for clubbing, cyanosis. Trace edema. DERMATOLOGIC: No rashes. MUSCULOSKELETAL: No joint effusion. NEUROLOGIC: No change in exam. MEDICATIONS: Have been reviewed. LABORATORY DATA: Has been reviewed. ASSESSMENT AND PLAN: 1. Nonoliguric acute kidney injury with previous baseline creatinine 1.16 mg/dL. Etiology is acute kidney injury is secondary to hemodynamics, contrast-associated nephropathy. The patient's renal fu nction is returning back to baseline. Continue current treatment plan. Renally dose all meds. 2. Anemia. Monitor hemoglobin and hematocrit levels. 3. Mineral bone disorder. Monitor calcium and phosphorus levels. 4. Hypernatremia, mild. Continue to monitor. 5. Acute hypoxic respiratory failure secondary to pneumonia, septic emboli. Continue current medica l management. 6. Endocarditis. Continue current antibiotic regimen. 7. Acute diastolic heart failure. The patient is currently on diuretic therapy. Continue. 8. NSTEMI type 2. 9. History of arrhythmia. Continue to monitor. Dictated By: ELSIE PEREZ/NTS Conf#: [id number] DID#: [id number] CC: ROBY MILLER MD;*EndCC*
[2019-03-24] MEDS: GUAIFENESIN/DM 5ML CUP PO PRN ×3 (10:39→22:15)
[2019-03-24] MEDS: CEFTRIAXONE 2 GM/50 ML (PMX) 50 ML IVPB SCH (12:53)
--- NOTE | 2019-03-24 13:18 | PN ---
Date/Time of Note Date/Time of Note DATE: 03/24/19 TIME: 13:14 Assessment/Plan VTE Prophylaxis Risk score (from Ns)>0 risk: 3 SCD applied (from Ns): Yes Pharmacological prophylaxis: other Lines/Catheters IV Catheter Type (from Nrs): Saline Lock Urinary Cath still in place: No Assessment/Plan Hospital Course S: Patient with some cough and tachycardia. Seen by renal and ID teams earlier today. No fevers overnight. O: VS - see below EXAM: Lying in bed, no acute distress Lungs clear Tachy, regular PPM No edema A/P: 28 yo male with h/o valve replacements and PPM following endocarditis in 2017 (specifics unclear) who presented with fever, tachypnea, and hypoxia with pulmonary infiltrates following IV meth use. 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 Repeat cultures negative to date. -Per ID team continue 2 g ceftriaxone and levaquin. -Daily cultures per ID recs # Acute hypoxic respiratory failure with fever/sepsis- 2/2 pneumonia and septic embolus as seen on CT-A. - Continue abx per Dr Hastings. Given septic embolus not VTE we are not giving anticoagulation - Monitor, continue O2 as needed # CLAUDIA:- Likely from sepsis, perhaps immunologic phenomenon from endocarditis, resolving now-of note, imaging suggests CKD -Monitor, follow-up renal recommendations # H/o valve replacements and PPM-presently appears stable -Monitor Result Diagram: 03/24/196 03/24/19 0446 Results 24hrs Laboratory Tests Test 03/24/19 04:46 White Blood Count 16.6 #H Red Blood Count 4.45 L Hemoglobin 11.7 L Hematocrit 35.9 L Mean Corpuscular Volume 80.7 L Mean Corpuscular Hemoglobin 26.3 L Mean Corpuscular Hemoglobin Concent 32.6 Red Cell Distribution Width 15.4 H Platelet Count 218 # Mean Platelet Volume 9.8 Immature Granulocytes % 5.200 H Neutrophils % Segmented Neutrophils % (Manual) 64 Band Neutrophils % (Manual) 17 H Lymphocytes % Lymphocytes % (Manual) 7 L Reactive Lymphocytes % (Manual) 1 H Monocytes % Monocytes % (Manual) 6 Eosinophils % Eosinophils % (Manual) 2 Basophils % Metamyelocytes % (manual) 2 H Myelocytes % (Manual) 1 H Nucleated Red Blood Cells % 1 H Immature Granulocytes # 0.860 H Neutrophils # Neutrophils # (Manual) 11.1 H Band Neutrophils # 2.8 H Lymphocytes (Manual) 1.1 Lymphocytes # Reactive Lymphocytes # 0.1 H Monocytes # Monocytes # (Manual) 0.9 Eosinophils # Basophils # Metamyelocytes # 0.3 H Myelocytes # 0.1 H Nucleated Red Blood Cells # Platelet Estimate NORMAL Polychromasia 1+ Poikilocytosis 1+ Anisocytosis 1+ Sodium Level 134 L Potassium Level 4.1 Chloride Level 103 Carbon Dioxide Level 21 Anion Gap 10 Blood Urea Nitrogen 19 # Creatinine 1.08 Est Glomerular Filtrat Rate mL/min > 60 Glucose Level 93 Calcium Level 8.4 Phosphorus Level 4.0 Magnesium Level 1.6 L Procalcitonin 2.45 H Exam/Review of Systems Exam Vitals Vital Signs Date Temp Pulse Resp B/P (MAP) Pulse Ox O2 O2 Flow FiO2 Time Delivery Rate 03/24/19 97.6 101 19 116/76 94 11:05 (89) 03/24/19 Nasal 2.0 08:32 Cannula Intake and Output 03/23/19 03/23/19 03/24/19 1515:00 23:00 07:00 IntakeIntake Total 50 ml 2400 ml 2000 ml OutputOutput Total 1750 ml BalanceBalance 50 ml 650 ml 2000 ml Results Results 24hrs Laboratory Tests Test 03/24/19 04:46 White Blood Count 16.6 #H Red Blood Count 4.45 L Hemoglobin 11.7 L Hematocrit 35.9 L Mean Corpuscular Volume 80.7 L Mean Corpuscular Hemoglobin 26.3 L Mean Corpuscular Hemoglobin Concent 32.6 Red Cell Distribution Width 15.4 H Platelet Count 218 # Mean Platelet Volume 9.8 Immature Granulocytes % 5.200 H Neutrophils % Segmented Neutrophils % (Manual) 64 Band Neutrophils % (Manual) 17 H Lymphocytes % Lymphocytes % (Manual) 7 L Reactive Lymphocytes % (Manual) 1 H Monocytes % Monocytes % (Manual) 6 Eosinophils % Eosinophils % (Manual) 2 Basophils % Metamyelocytes % (manual) 2 H Myelocytes % (Manual) 1 H Nucleated Red Blood Cells % 1 H Immature Granulocytes # 0.860 H Neutrophils # Neutrophils # (Manual) 11.1 H Band Neutrophils # 2.8 H Lymphocytes (Manual) 1.1 Lymphocytes # Reactive Lymphocytes # 0.1 H Monocytes # Monocytes # (Manual) 0.9 Eosinophils # Basophils # Metamyelocytes # 0.3 H Myelocytes # 0.1 H Nucleated Red Blood Cells # Platelet Estimate NORMAL Polychromasia 1+ Poikilocytosis 1+ Anisocytosis 1+ Sodium Level 134 L Potassium Level 4.1 Chloride Level 103 Carbon Dioxide Level 21 Anion Gap 10 Blood Urea Nitrogen 19 # Creatinine 1.08 Est Glomerular Filtrat Rate mL/min > 60 Glucose Level 93 Calcium Level 8.4 Phosphorus Level 4.0 Magnesium Level 1.6 L Procalcitonin 2.45 H Medications Medication Current Medications IV Flush (NS 3 ml) 3 ml PER PROTOCOL IV ; Start 03/17/19 at 15:00 Enoxaparin Sodium (Lovenox) 40 mg DAILY SC Last administered on 03/21/19 08:19; Admin Dose 40 MG; Start 03/18/19 at 15:30; Status Hold Furosemide (Lasix) 20 mg DAILY PO Last administered on 03/24/19 08:30; Admin Dose 20 MG; Start 03/20/19 at 09:00 Levofloxacin (Levaquin) 500 mg DAILY@06 PO Last administered on 03/24/19at 06:05; Admin Dose 500 MG; Start 03/22/19 at 06:00 Ceftriaxone Sodium 50 ml @ 100 mls/hr Q24H IVPB Last administered on 03/24/19at 12:53; Admin Dose 100 MLS/HR; Start 03/23/19 at 11:00 Acetylcysteine (Mucomyst) 2 ml Q6H RESP THERAPY NEB Last administered on 03/24/19at 01:40; Admin Dose 2 ML; Start 03/23/19 at 22:00; Stop 03/25/19 at 14:00 Guaifenesin/ Dextromethorphan (Robitussin Dm Liquid Cup) 5 ml Q4H PRN PO COUGH Last administered on 03/24/19at 10:39; Admin Dose 5 ML; Start 03/23/19 at 22:00 Albuterol/ Ipratropium (Duoneb) 3 ml Q4H RESP THERAPY PRN HHN SHORTNESS OF BREATH; Start 03/24/19 at 06:30 Albuterol/ Ipratropium (Duoneb) 3 ml Q6H RESP THERAPY HHN Last administered on 03/24/19at 07:59; Admin Dose 3 ML; Start 03/24/19 at 08:00; Stop 03/25/19 at 14:00 Phenol (Cepastat Lozenge) 1 lozenge Q1H PRN MT COUGH; Start 03/24/19 at 13:30; Status UNV Morphine Sulfate (morphine) 1 mg Q4H PRN IV SEVERE PAIN LEVEL 7-10; Start 03/24/19 at 16:00; Status UNV Oxycodone/ Acetaminophen (Percocet (5/ 325)) 1 tab Q6H PRN PO .SEVERE PAIN 7- 10; Start 03/24/19 at 15:00; Status UNV ROWAN OVALLE March 24, 2019 13:18
[2019-03-24] MEDS: OXYCODONE/ACETAMINOPHEN (5/325) TAB PO PRN (22:15)
[2019-03-25] VITALS (13 sets, daily range): BP systolic 118–140; BP diastolic 78–89; PULSE 90–105; RESP 18–20
[2019-03-25] MEDS: ACETYLCYSTEINE 20% 4 ML VIAL NEB SCH ×3 (01:23→14:00)
[2019-03-25] MEDS: ALBUTEROL/IPRATROPIUM (NEB) 3 ML AMP HHN SCH ×3 (01:23→14:42)
[2019-03-25] MEDS: LEVOFLOXACIN 500 MG TAB PO SCH (05:48)
[2019-03-25] MEDS: morphine 2 MG INJ IV PRN ×3 (05:48→20:05)
--- NOTE | 2019-03-25 07:08 | CONS ---
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 usual suspect in IVDA is staph or strep but pseudomonas and benjamin can also be seen continue with vanco/zosyn at present fevers have improved and WBC is improved today I will order WBC scan as pt c/o pain over the pacer site I will also order u/s of pacer site to see if there is fluid present 03/20 - GPC growing in all 3 sets of blood cx from 03/17, await ID MRSA in nasal continue with vanco/zosyn pt was seen in this hospital last month under a different MRN and he was evaluated for endocarditis at that time he had corynebacterium in two different sets of blood cx and had a MADINA which was neg for vegetations he was give two weeks of ceftriaxone for pneumonia, they also wondered if he had septic emboli or PE at that time he got an IVC filter but were planning to remove it because he did not have a PE but he left AMA u/s of around pacer site was neg for fluid collection WBC scan is pending 03/21 - WBC scan only has activity in the lung s.aureus is in the blood repeat blood cx on 03/18 are NGTD, repeat again continue with vanco, d/c zosyn 03/24- MSSA in blood, vanco stopped yesterday and switched to ceftriaxone 2gm q24 hours repeat blood cx all remain NGTD 03/25 - low grade temp noted, to repeat CXR procalcitonin was greatly improved but will repeat in a.m. continue with just ceftriaxone, all repeat blood cx are NGTD 2) IVDA pt states he was tested in the last 1-2 months and was neg for HIV and he does not share his needles no hx of hepatitis either I will check into his prior hospitalization here that if it exists is under another MR# / - pt has another MRN and his HIV was neg in february he had corynebacterium in two different sets of blood cx then 3) pulmonary infiltrates PACS system is not working on two different computers, I need to see his CT's and CXR to see if these are c/w septic emboli or not vanco/zosyn should cover if he has pneumonia rather than septic emboli procalcitonin has been ordered also 03/20 - his prior chest CT last month shows that he has waxing and waning of pulmonary infiltrates and his cavitary lesions have improved slightly his pulmonary infiltrates are patchy and somewhat large which would be atypical for septic emboli his procalcitonin is very high but bacteremia will also elevated it continue with vanco/zosyn will check for atypical organisms with serology 03/21 - pt is able to bring up some phlegm will order cx s.aureus is likely the culprit continue with vanco, d/c zosyn but add levaquin for atypical coverage 03/24 - sputum cx has c.alb only continue with levaquin and ceftriaxone, legionella was neg 03/25 - mycoplasma IgG was elevated but no IgM sent and at this time results would be back after he has finished his levaquin day 03/11 of levaquin 4) ARF 03/21 this is improving 03/24 - resolved Consultation Date/Type/Reason Admit Date/Time March 17, 2019 at 15:13 Initial Consult Date 03/19/19 Type of Consult ID Requesting Provider: ROBY MILLER MD Date/Time of Note DATE: 03/25/19 TIME: 07:04 24 HR Interval Summary Free Text/Dictation pt had comfortable night but used face mask instead of NC no V, D Exam/Review of Systems Exam Vitals Vital Signs Date Temp Pulse Resp B/P (MAP) Pulse Ox O2 O2 Flow FiO2 Time Delivery Rate 03/25/19 98.7 94 19 137/89 95 04:01 (105) 03/25/19 10.0 03:57 03/25/19 Simple 01:23 Mask Intake and Output 03/24/19 03/24/19 03/25/19 1515:00 23:00 07:00 IntakeIntake Total 50 ml 2400 ml 2000 ml OutputOutput Total 2700 ml 2800 ml BalanceBalance 50 ml -300 ml -800 ml Respiratory: clear to auscultation Cardiovascular: regular rate and rhythm Gastrointestinal: soft, non-tender Results Result Diagram: 03/25/19 0506 03/24/19 0446 Results 24hrs Laboratory Tests Test 03/25/19 05:05 03/25/19 05:06 Phosphorus Level 5.4 H Magnesium Level 2.0 White Blood Count 16.6 H Red Blood Count 4.30 L Hemoglobin 11.2 L Hematocrit 34.8 L Mean Corpuscular Volume 80.9 L Mean Corpuscular Hemoglobin 26.0 L Mean Corpuscular Hemoglobin Concent 32.2 Red Cell Distribution Width 15.7 H Platelet Count 231 Mean Platelet Volume 9.5 Immature Granulocytes % 2.500 H Neutrophils % 78.4 H Lymphocytes % 12.0 L Monocytes % 5.5 Eosinophils % 1.1 Basophils % 0.5 Nucleated Red Blood Cells % 0.1 H Immature Granulocytes # 0.420 H Neutrophils # 13.0 H Lymphocytes # 2.0 Monocytes # 0.9 Eosinophils # 0.2 Basophils # 0.1 Nucleated Red Blood Cells # 0.0 Medications Medication Current Medications IV Flush (NS 3 ml) 3 ml PER PROTOCOL IV ; Start 03/17/19 at 15:00 Enoxaparin Sodium (Lovenox) 40 mg DAILY SC Last administered on 03/21/19at 08:19; Admin Dose 40 MG; Start 03/18/19 at 15:30; Status Hold Furosemide (Lasix) 20 mg DAILY PO Last administered on 03/24/19at 08:30; Admin Dose 20 MG; Start 03/20/19 at 09:00 Levofloxacin (Levaquin) 500 mg DAILY@06 PO Last administered on 03/25/19at 05:48; Admin Dose 500 MG; Start 03/22/19 at 06:00 Ceftriaxone Sodium 50 ml @ 100 mls/hr Q24H IVPB Last administered on 03/24/19at 12:53; Admin Dose 100 MLS/HR; Start 03/23/19 at 11:00 Acetylcysteine (Mucomyst) 2 ml Q6H RESP THERAPY NEB Last administered on 03/24/19at 14:20; Admin Dose 2 ML; Start 03/23/19 at 22:00; Stop 03/25/19 at 14:00 Guaifenesin/ Dextromethorphan (Robitussin Dm Liquid Cup) 5 ml Q4H PRN PO COUGH Last administered on 03/24/19at 22:15; Admin Dose 5 ML; Start 03/23/19 at 22:00 Albuterol/ Ipratropium (Duoneb) 3 ml Q4H RESP THERAPY PRN HHN SHORTNESS OF BREATH; Start 03/24/19 at 06:30 Albuterol/ Ipratropium (Duoneb) 3 ml Q6H RESP THERAPY HHN Last administered on 03/25/19at 01:23; Admin Dose 3 ML; Start 03/24/19 at 08:00; Stop 03/25/19 at 14:00 Phenol (Cepastat Lozenge) 1 lozenge Q1H PRN MT COUGH; Start 03/24/19 at 13:30 Morphine Sulfate (morphine) 1 mg Q4H PRN IV SEVERE PAIN LEVEL 7-10 Last a dministered on 03/25/19at 05:48; Admin Dose 1 MG; Start 03/24/19 at 16:00 Oxycodone/ Acetaminophen (Percocet (5/ 325)) 1 tab Q6H PRN PO .SEVERE PAIN 7-10 Last administered on 03/24/19at 22:15; Admin Dose 1 TAB; Start 03/24/19 at 15:00 JANETH LOGAN MD March 25, 2019 07:08
[2019-03-25] MEDS: FUROSEMIDE 20 MG TAB PO SCH (09:04)
--- NOTE | 2019-03-25 09:18 | PN ---
DATE: 03/25/2019 SUBJECTIVE: The patient is stable, no events overnight. OBJECTIVE: VITAL SIGNS: Blood pressure is 127/78, pulse is 94, respirations 18, temperature 98.4. HEENT: Head is normocephalic. NECK: Supple. HEART: Regular rate. LUNGS: Show diminished breath sounds at the base. ABDOMEN: Soft, nontender to palpation without rebound or guarding. EXTREMITIES: Negative for clubbing, cyanosis, no edema. DERMATOLOGIC: No rashes. MUSCULOSKELETAL: No joint effusion. NEUROLOGIC: No change in exam. MEDICATIONS: Reviewed. LABORATORY DATA: Reviewed. ASSESSMENT AND PLAN: 1. Nonoliguric acute kidney injury with previous baseline creatinine of 1.16 mg/dL. Etiology of acu te kidney injury is secondary to hemodynamics and contrast associated nephropathy. Renal function is improved. Continue current treatment plan, supportive care, renally dose all medications. 2. Anemia. Continue to monitor hemoglobin and hematocrit levels. 3. Mineral bone disorder. Continue to monitor calcium and phosphorus levels. 4. Hypernatremia, improved. 5. Acute hypoxemic respiratory failure secondary to pneumonia, septic emboli. Continue medical joselito gement. Continue supplemental oxygen. Continue antibiotics. 6. Endocarditis. Continue current antibiotic regimen. 7. Acute diastolic heart failure. Continue medical management. 8. Non-ST elevation myocardial infarction type 2. 9. History of arrhythmia. Continue to monitor. Dictated By: ELSIE CHRISTENSEN DO NR/NTS Conf#: [id number] DID#: [id number] CC: LON MENDOZA MD; ROBY MILLER MD; ROWAN OVALLE;*End*
[2019-03-25] MEDS: CEFTRIAXONE 2 GM/50 ML (PMX) 50 ML IVPB SCH (11:05)
--- NOTE | 2019-03-25 12:54 | PN ---
Date/Time of Note Date/Time of Note DATE: 03/25/19 TIME: 12:44 Assessment/Plan VTE Prophylaxis Risk score (from Ns)>0 risk: 3 SCD applied (from Nsg): Yes Pharmacological prophylaxis: other Lines/Catheters IV Catheter Type (from Nrs): Saline Lock Urinary Cath still in place: No Assessment/Plan Hospital Course S: Patient with some cough and tachycardia. Seen by renal and ID teams earlier today. No fevers overnight. O: VS - see below EXAM: Lying in bed, no acute distress Lungs clear Tachy, regular PPM No edema A/P: 28 yo male with h/o valve replacements and PPM following endocarditis in 2017 (specifics unclear) who presented with fever, tachypnea, and hypoxia with pulmonary infiltrates following IV meth use. 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 Repeat cultures negative to date. -Per ID team continue 2 g ceftriaxone (until May 04) and levaquin (until March 28) for now. -Daily cultures per ID recs # Acute hypoxic respiratory failure with fever/sepsis- 2/2 pneumonia and septic embolus as seen on CT-A. - Continue abx per Dr Hastings. Given septic embolus not VTE we are not giving anticoagulation - Monitor, continue O2 as needed - Continue antitussives as needed for cough # CLAUDIA:- Likely from sepsis, perhaps immunologic phenomenon from endocarditis, resolving now-of note, imaging suggests CKD -Monitor, follow-up renal recommendations # H/o valve replacements and PPM-presently appears stable -Monitor Result Diagram: 03/25/19 0506 03/25/19 0506 Results 24hrs Laboratory Tests Test 03/25/19 05:05 03/25/19 05:06 Phosphorus Level 5.4 H Magnesium Level 2.0 White Blood Count 16.6 H Red Blood Count 4.30 L Hemoglobin 11.2 L Hematocrit 34.8 L Mean Corpuscular Volume 80.9 L Mean Corpuscular Hemoglobin 26.0 L Mean Corpuscular Hemoglobin Concent 32.2 Red Cell Distribution Width 15.7 H Platelet Count 231 Mean Platelet Volume 9.5 Immature Granulocytes % 2.500 H Neutrophils % 78.4 H Lymphocytes % 12.0 L Monocytes % 5.5 Eosinophils % 1.1 Basophils % 0.5 Nucleated Red Blood Cells % 0.1 H Immature Granulocytes # 0.420 H Neutrophils # 13.0 H Lymphocytes # 2.0 Monocytes # 0.9 Eosinophils # 0.2 Basophils # 0.1 Nucleated Red Blood Cells # 0.0 Sodium Level 136 Potassium Level 4.6 Chloride Level 105 Carbon Dioxide Level 23 Anion Gap 8 Blood Urea Nitrogen 19 Creatinine 1.14 Est Glomerular Filtrat Rate mL/min > 60 Glucose Level 91 Calcium Level 8.5 Exam/Review of Systems Exam Vitals Vital Signs Date Temp Pulse Resp B/P (MAP) Pulse Ox O2 O2 Flow FiO2 Time Delivery Rate 03/25/19 97.5 90 19 129/82 96 11:35 (98) 03/25/19 Simple 6.0 09:07 Mask Intake and Output 03/24/19 03/24/19 03/25/19 1515:00 23:00 07:00 IntakeIntake Total 50 ml 2400 ml 2000 ml OutputOutput Total 2700 ml 2800 ml BalanceBalance 50 ml -300 ml -800 ml Results Results 24hrs Laboratory Tests Test 03/25/19 05:05 03/25/19 05:06 Phosphorus Level 5.4 H Magnesium Level 2.0 White Blood Count 16.6 H Red Blood Count 4.30 L Hemoglobin 11.2 L Hematocrit 34.8 L Mean Corpuscular Volume 80.9 L Mean Corpuscular Hemoglobin 26.0 L Mean Corpuscular Hemoglobin Concent 32.2 Red Cell Distribution Width 15.7 H Platelet Count 231 Mean Platelet Volume 9.5 Immature Granulocytes % 2.500 H Neutrophils % 78.4 H Lymphocytes % 12.0 L Monocytes % 5.5 Eosinophils % 1.1 Basophils % 0.5 Nucleated Red Blood Cells % 0.1 H Immature Granulocytes # 0.420 H Neutrophils # 13.0 H Lymphocytes # 2.0 Monocytes # 0.9 Eosinophils # 0.2 Basophils # 0.1 Nucleated Red Blood Cells # 0.0 Sodium Level 136 Potassium Level 4.6 Chloride Level 105 Carbon Dioxide Level 23 Anion Gap 8 Blood Urea Nitrogen 19 Creatinine 1.14 Est Glomerular Filtrat Rate mL/min > 60 Glucose Level 91 Calcium Level 8.5 Medications Medication Current Medications IV Flush (NS 3 ml) 3 ml PER PROTOCOL IV ; Start 03/17/19 at 15:00 Enoxaparin Sodium (Lovenox) 40 mg DAILY SC Last administered on 03/21/19at 08:19; Admin Dose 40 MG; Start 03/18/19 at 15:30; Status Hold Furosemide (Lasix) 20 mg DAILY PO Last administered on 03/25/19 09:04; Admin Dose 20 MG; Start 03/20/19 at 09:00 Levofloxacin (Levaquin) 500 mg DAILY@06 PO Last administered on 03/25/19 05:48; Admin Dose 500 MG; Start 03/22/19 at 06:00 Ceftriaxone Sodium 50 ml @ 100 mls/hr Q24H IVPB Last administered on 03/25/19 11:05; Admin Dose 100 MLS/HR; Start 03/23/19 at 11:00 Acetylcysteine (Mucomyst) 2 ml Q6H RESP THERAPY NEB Last administered on 03/24/19 14:20; Admin Dose 2 ML; Start 03/23/19 at 22:00; Stop 03/25/19 at 14:00 Guaifenesin/ Dextromethorphan (Robitussin Dm Liquid Cup) 5 ml Q4H PRN PO COUGH Last administered on 03/24/19 22:15; Admin Dose 5 ML; Start 03/23/19 at 22:00 Albuterol/ Ipratropium (Duoneb) 3 ml Q4H RESP THERAPY PRN HHN SHORTNESS OF BREATH; Start 03/24/19 at 06:30 Albuterol/ Ipratropium (Duoneb) 3 ml Q6H RESP THERAPY HHN Last administered on 03/25/19 01:23; Admin Dose 3 ML; Start 03/24/19 at 08:00; Stop 03/25/19 at 14:00 Phenol (Cepastat Lozenge) 1 lozenge Q1H PRN MT COUGH; Start 03/24/19 at 13:30 Morphine Sulfate (morphine) 1 mg Q4H PRN IV SEVERE PAIN LEVEL 7-10 Last adminis tered on 03/25/19 05:48; Admin Dose 1 MG; Start 03/24/19 at 16:00 Oxycodone/ Acetaminophen (Percocet (5/ 325)) 1 tab Q6H PRN PO .SEVERE PAIN 7-10 Last administered on 03/24/19 22:15; Admin Dose 1 TAB; Start 03/24/19 at 15:00 ROWAN OVALLE March 25, 2019 12:54
[2019-03-25] MEDS: GUAIFENESIN/DM 5ML CUP PO PRN ×2 (14:21→21:54)
[2019-03-25] MEDS: CEPASTAT LOZENGE MT PRN ×2 (14:21→21:54)
[2019-03-25] MEDS: OXYCODONE/ACETAMINOPHEN (5/325) TAB PO PRN (23:24)
[2019-03-26] VITALS (11 sets, daily range): BP systolic 127–156; BP diastolic 69–96; PULSE 51–111; RESP 16–18
[2019-03-26] MEDS: morphine 2 MG INJ IV PRN ×5 (01:45→21:17)
[2019-03-26] MEDS: LEVOFLOXACIN 500 MG TAB PO SCH (06:47)
--- NOTE | 2019-03-26 07:34 | CONS ---
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 usual suspect in IVDA is staph or strep but pseudomonas and benjamin can also be seen continue with vanco/zosyn at present fevers have improved and WBC is improved today I will order WBC scan as pt c/o pain over the pacer site I will also order u/s of pacer site to see if there is fluid present 03/20 - GPC growing in all 3 sets of blood cx from 03/17, await ID MRSA in nasal continue with vanco/zosyn pt was seen in this hospital last month under a different MRN and he was evaluated for endocarditis at that time he had corynebacterium in two different sets of blood cx and had a MADINA which was neg for vegetations he was give two weeks of ceftriaxone for pneumonia, they also wondered if he had septic emboli or PE at that time he got an IVC filter but were planning to remove it because he did not have a PE but he left AMA u/s of around pacer site was neg for fluid collection WBC scan is pending 03/21 - WBC scan only has activity in the lung s.aureus is in the blood repeat blood cx on 03/18 are NGTD, repeat again continue with vanco, d/c zosyn 03/24- MSSA in blood, vanco stopped yesterday and switched to ceftriaxone 2gm q24 hours repeat blood cx all remain NGTD 03/25 - low grade temp noted, to repeat CXR procalcitonin was greatly improved but will repeat in a.m. continue with just ceftriaxone, all repeat blood cx are NGTD 03/26 - procalcitonin is pending but CXR from yesterday was slightly improved WBC is still elevated and higher today, clinically pt is much improved I saw that in january he had a marginal positive IgM cocci titer, to repeat this if procalcitonin is higher to broaden pulmonary coverage 2) IVDA pt states he was tested in the last 1-2 months and was neg for HIV and he does not share his needles no hx of hepatitis either I will check into his prior hospitalization here that if it exists is under another MR# / - pt has another MRN and his HIV was neg in february he had corynebacterium in two different sets of blood cx then 3) pulmonary infiltrates PACS system is not working on two different computers, I need to see his CT's and CXR to see if these are c/w septic emboli or not vanco/zosyn should cover if he has pneumonia rather than septic emboli procalcitonin has been ordered also 03/20 - his prior chest CT last month shows that he has waxing and waning of pulmonary infiltrates and his cavitary lesions have improved slightly his pulmonary infiltrates are patchy and somewhat large which would be atypical for septic emboli his procalcitonin is very high but bacteremia will also elevated it continue with vanco/zosyn will check for atypical organisms with serology 03/21 - pt is able to bring up some phlegm will order cx s.aureus is likely the culprit continue with vanco, d/c zosyn but add levaquin for atypical coverage 03/24 - sputum cx has c.alb only continue with levaquin and ceftriaxone, legionella was neg 03/25 - mycoplasma IgG was elevated but no IgM sent and at this time results would be back after he has finished his levaquin day 03/11 of levaquin 03/26 - day 6/ of levaquin CXR is improved check cocci titers since he had an equivocal IgM titer in january 2019 4) ARF 03/21 this is improving 03/24 - resolved 5) leukocytosis 03/26 - pt is clinically improved one of his legs is slightly swollen but not tender and he had a neg LE venous doppler on 03/17 no diarrhea, so c.dif is unlikely no urinary c/o but will repeat u/a and urine cx will check cocci titers since pt had an equivocal IgM titer in january 2019 check RPR pt had a neg HIV test in january 2019 and HIV would not be cause of leukocytosis Consultation Date/Type/Reason Admit Date/Time March 17, 2019 at 15:13 Initial Consult Date 03/19/19 Type of Consult ID Requesting Provider: ROBY MLILER MD Date/Time of Note DATE: 03/26/19 TIME: 07:16 24 HR Interval Summary Free Text/Dictation pt states he is feeling a bit better and breathing is a bit easier no N, V no stools in last 24 hours no dysuria appetite is good Exam/Review of Systems Exam Vitals Vital Signs Date Temp Pulse Resp B/P (MAP) Pulse Ox O2 O2 Flow FiO2 Time Delivery Rate 03/26/19 93 04:41 03/26/19 97.5 18 128/89 96 Mask 04:16 (102) 03/26/19 10.0 02:47 Intake and Output 03/25/19 03/25/19 03/26/19 1515:00 23:00 07:00 IntakeIntake Total 50 ml 2200 ml 2000 ml OutputOutput Total 2400 ml 2600 ml BalanceBalance 50 ml -200 ml -600 ml Constitutional: alert Eyes: nl sclera ENMT: mucosa pink and moist Respiratory: clear to auscultation Cardiovascular: regular rate and rhythm Gastrointestinal: soft, non-tender Extremities: other (R calf is slightly larger than L) Results Result Diagram: 03/26/19 0539 03/25/19 0506 Results 24hrs Laboratory Tests Test 03/26/19 05:39 White Blood Count 19.0 H Red Blood Count 4.26 L Hemoglobin 11.3 L Hematocrit 35.0 L Mean Corpuscular Volume 82.2 Mean Corpuscular Hemoglobin 26.5 L Mean Corpuscular Hemoglobin Concent 32.3 Red Cell Distribution Width 15.5 H Platelet Count 265 Mean Platelet Volume 9.3 Immature Granulocytes % 1.700 H Neutrophils % 80.6 H Lymphocytes % 11.5 L Monocytes % 4.7 Eosinophils % 1.0 Basophils % 0.5 Nucleated Red Blood Cells % 0.0 Immature Granulocytes # 0.320 H Neutrophils # 15.3 H Lymphocytes # 2.2 Monocytes # 0.9 Eosinophils # 0.2 Basophils # 0.1 Nucleated Red Blood Cells # 0.0 Medications Medication Current Medications IV Flush (NS 3 ml) 3 ml PER PROTOCOL IV ; Start 03/17/19 at 15:00 Enoxaparin Sodium (Lovenox) 40 mg DAILY SC Last administered on 03/21/19at 08:19; Admin Dose 40 MG; Start 03/18/19 at 15:30; Status Hold Furosemide (Lasix) 20 mg DAILY PO Last administered on 03/25/19at 09:04; Admin Dose 20 MG; Start 03/20/19 at 09:00 Levofloxacin (Levaquin) 500 mg DAILY@06 PO Last administered on 03/26/19at 06:47; Admin Dose 500 MG; Start 03/22/19 at 06:00 Ceftriaxone Sodium 50 ml @ 100 mls/hr Q24H IVPB Last administered on 03/25/19 11:05; Admin Dose 100 MLS/HR; Start 03/23/19 at 11:00 Guaifenesin/ Dextromethorphan (Robitussin Dm Liquid Cup) 5 ml Q4H PRN PO COUGH Last administered on 03/25/19 21:54; Admin Dose 5 ML; Start 03/23/19 at 22:00 Albuterol/ Ipratropium (Duoneb) 3 ml Q4H RESP THERAPY PRN HHN SHORTNESS OF BREATH; Start 03/24/19 at 06:30 Phenol (Cepastat Lozenge) 1 lozenge Q1H PRN MT COUGH Last administered on 03/25/19 21:54; Admin Dose 1 LOZENGE; Start 03/24/19 at 13:30 Morphine Sulfate (morphine) 1 mg Q4H PRN IV SEVERE PAIN LEVEL 7-10 Last administered on 03/26/19 01:45; Admin Dose 1 MG; Start 03/24/19 at 16:00 Oxycodone/ Acetaminophen (Percocet (5/ 325)) 1 tab Q6H PRN PO .SEVERE PAIN 7-10 Last administered on 03/25/19 23:24; Admin Dose 1 TAB; Start 03/24/19 at 15:00 JANETH LOGAN MD March 26, 2019 07:27
[2019-03-26] MEDS: FUROSEMIDE 20 MG TAB PO SCH (08:42)
--- NOTE | 2019-03-26 09:02 | PN ---
DATE: 03/26/2019 SUBJECTIVE: The patient is stable. No events overnight. The patient remains on facemask. OBJECTIVE: VITAL SIGNS: Blood pressure is 139/76, respirations 16, pulse 100, temperature 98.3. HEENT: Head is normocephalic. NECK: Supple. HEART: Regular rate. LUNGS: Show diminished breath sounds at the base. ABDOMEN: Soft, nontender to palpation without rebound or guarding. EXTREMITIES: Negative for clubbing, cyanosis, no edema. DERMATOLOGIC: No rashes. MUSCULOSKELETAL: No joint effusion. NEUROLOGIC: No change in exam. MEDICATIONS: Reviewed. LABORATORY DATA: Reviewed. ASSESSMENT AND PLAN: 1. Nonoliguric acute kidney injury with previous baseline creatinine of 1.16 mg/dL. Etiology of acu te kidney injury is secondary to hemodynamics, contrast-associated nephropathy. Renal function is im proved. Continue to monitor. 2. Anemia. Monitor hemoglobin and hematocrit levels. 3. Mineral bone disorder, monitor calcium and phosphorus levels. 4. Hypernatremia, improved. 5. Acute hypoxemic respiratory failure secondary to pneumonia, septic emboli. Continue to monitor. Continue supplemental oxygen, continue antibiotic therapy. 6. Endocarditis continue current antibiotic regimen. 7. Acute diastolic heart failure. Continue medical management. 8. Non-ST elevation myocardial infarction type 2. 9. History of arrhythmia. Continue to monitor. Dictated By: ELSIE CHRISTENSEN DO NR/NTS Conf#: [id number] DID#: [id number] CC: LON MENDOZA MD; ROBY MILLER MD; ROWAN OVALLE;*EndCC*
--- NOTE | 2019-03-26 10:40 | PN ---
Date/Time of Note Date/Time of Note DATE: 03/26/19 TIME: 10:36 Assessment/Plan VTE Prophylaxis Risk score (from Nsg)>0 risk: 3 SCD applied (from Nsg): Yes Pharmacological prophylaxis: other Lines/Catheters IV Catheter Type (from Nrsg): Saline Lock Urinary Cath still in place: No Assessment/Plan Hospital Course S: Patient seen by ID team this morning, no fevers overnight. O: VS - see below EXAM: Lying in bed, no acute distress Lungs clear S1, S2 heard PPM No edema A/P: 28 yo male with h/o valve replacements and PPM following endocarditis in 2017 (specifics unclear) who presented with fever, tachypnea, and hypoxia with pulmonary infiltrates following IV meth use. 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 Repeat cultures negative to date. -Per ID team continue 2 g ceftriaxone (until May 04) and levaquin (until March 28) for now. -Daily cultures per ID recs # Acute hypoxic respiratory failure with fever/sepsis- 2/2 pneumonia and septic embolus as seen on CT-A. - Continue abx per Dr Hastings. Given septic embolus not VTE we are not giving anticoagulation - Monitor, continue O2 as needed - Continue antitussives as needed for cough # CLAUDIA:- Likely from sepsis, perhaps immunologic phenomenon from endocarditis, resolving now-of note, imaging suggests CKD -Monitor, follow-up renal recommendations # H/o valve replacements and PPM-presently appears stable -Monitor Dispo: As mentioned above will need antibiotics for the dates listed. If patient can be transitioned to oral p.o. antibiotics, ID team recommends close follow-up at preferably in ID clinic, case technician is working on possible options for this. Result Diagram: 03/26/19 0539 03/26/19 0539 Results 24hrs Laboratory Tests Test 03/26/19 05:39 White Blood Count 19.0 H Red Blood Count 4.26 L Hemoglobin 11.3 L Hematocrit 35.0 L Mean Corpuscular Volume 82.2 Mean Corpuscular Hemoglobin 26.5 L Mean Corpuscular Hemoglobin Concent 32.3 Red Cell Distribution Width 15.5 H Platelet Count 265 Mean Platelet Volume 9.3 Immature Granulocytes % 1.700 H Neutrophils % 80.6 H Lymphocytes % 11.5 L Monocytes % 4.7 Eosinophils % 1.0 Basophils % 0.5 Nucleated Red Blood Cells % 0.0 Immature Granulocytes # 0.320 H Neutrophils # 15.3 H Lymphocytes # 2.2 Monocytes # 0.9 Eosinophils # 0.2 Basophils # 0.1 Nucleated Red Blood Cells # 0.0 Sodium Level 135 Potassium Level 4.7 Chloride Level 102 Carbon Dioxide Level 26 Anion Gap 7 Blood Urea Nitrogen 17 Creatinine 1.18 Est Glomerular Filtrat Rate mL/min > 60 Glucose Level 100 Calcium Level 8.4 Total Bilirubin 0.8 Direct Bilirubin 0.00 Indirect Bilirubin 0.8 Aspartate Amino Transf (AST/SGOT) 42 Alanine Aminotransferase (ALT/SGPT) 30 Alkaline Phosphatase 262 H Total Protein 8.7 H Albumin 3.1 L Globulin 5.60 H Albumin/Globulin Ratio 0.55 Exam/Review of Systems Exam Vitals Vital Signs Date Temp Pulse Resp B/P (MAP) Pulse Ox O2 O2 Flow FiO2 Time Delivery Rate 03/26/19 95 08:00 03/26/19 98.3 16 139/76 95 07:18 (97) 03/26/19 Mask 04:16 03/26/19 10.0 02:47 Intake and Output 03/25/19 03/25/19 03/26/19 1515:00 23:00 07:00 IntakeIntake Total 50 ml 2200 ml 2000 ml OutputOutput Total 2400 ml 2600 ml BalanceBalance 50 ml -200 ml -600 ml Results Results 24hrs Laboratory Tests Test 03/26/19 05:39 White Blood Count 19.0 H Red Blood Count 4.26 L Hemoglobin 11.3 L Hematocrit 35.0 L Mean Corpuscular Volume 82.2 Mean Corpuscular Hemoglobin 26.5 L Mean Corpuscular Hemoglobin Concent 32.3 Red Cell Distribution Width 15.5 H Platelet Count 265 Mean Platelet Volume 9.3 Immature Granulocytes % 1.700 H Neutrophils % 80.6 H Lymphocytes % 11.5 L Monocytes % 4.7 Eosinophils % 1.0 Basophils % 0.5 Nucleated Red Blood Cells % 0.0 Immature Granulocytes # 0.320 H Neutrophils # 15.3 H Lymphocytes # 2.2 Monocytes # 0.9 Eosinophils # 0.2 Basophils # 0.1 Nucleated Red Blood Cells # 0.0 Sodium Level 135 Potassium Level 4.7 Chloride Level 102 Carbon Dioxide Level 26 Anion Gap 7 Blood Urea Nitrogen 17 Creatinine 1.18 Est Glomerular Filtrat Rate mL/min > 60 Glucose Level 100 Calcium Level 8.4 Total Bilirubin 0.8 Direct Bilirubin 0.00 Indirect Bilirubin 0.8 Aspartate Amino Transf (AST/SGOT) 42 Alanine Aminotransferase (ALT/SGPT) 30 Alkaline Phosphatase 262 H Total Protein 8.7 H Albumin 3.1 L Globulin 5.60 H Albumin/Globulin Ratio 0.55 Medications Medication Current Medications IV Flush (NS 3 ml) 3 ml PER PROTOCOL IV ; Start 03/17/19 at 15:00 Enoxaparin Sodium (Lovenox) 40 mg DAILY SC Last administered on 03/21/19 08:19; Admin Dose 40 MG; Start 03/18/19 at 15:30; Status Hold Furosemide (Lasix) 20 mg DAILY PO Last administered on 03/26/19 08:42; Admin Dose 20 MG; Start 03/20/19 at 09:00 Levofloxacin (Levaquin) 500 mg DAILY@06 PO Last administered on 03/26/19 06:47; Admin Dose 500 MG; Start 03/22/19 at 06:00 Ceftriaxone Sodium 50 ml @ 100 mls/hr Q24H IVPB Last administered on 03/25/19at 11:05; Admin Dose 100 MLS/HR; Start 03/23/19 at 11:00 Guaifenesin/ Dextromethorphan (Robitussin Dm Liquid Cup) 5 ml Q4H PRN PO COUGH Last administered on 03/25/19at 21:54; Admin Dose 5 ML; Start 03/23/19 at 22:00 Albuterol/ Ipratropium (Duoneb) 3 ml Q4H RESP THERAPY PRN HHN SHORTNESS OF BREATH; Start 03/24/19 at 06:30 Phenol (Cepastat Lozenge) 1 lozenge Q1H PRN MT COUGH Last administered on 21:54; Admin Dose 1 LOZENGE; Start 03/24/19 at 13:30 Morphine Sulfate (morphine) 1 mg Q4H PRN IV SEVERE PAIN LEVEL 7-10 Last administered on 03/26/19at 08:43; Admin Dose 1 MG; Start 03/24/19 at 16:00 Oxycodone/ Acetaminophen (Percocet (5/ 325)) 1 tab Q6H PRN PO .SEVERE PAIN 7-10 Last administered on 03/25/19 23:24; Admin Dose 1 TAB; Start 03/24/19 at 15:00 ROWAN OVALLE March 26, 2019 10:40
[2019-03-26] MEDS: GUAIFENESIN/DM 5ML CUP PO PRN ×3 (10:59→21:17)
[2019-03-26] MEDS: CEPASTAT LOZENGE MT PRN ×3 (10:59→19:40)
[2019-03-26] MEDS: CEFTRIAXONE 2 GM/50 ML (PMX) 50 ML IVPB SCH (11:01)
[2019-03-26] MEDS: ALBUTEROL/IPRATROPIUM (NEB) 3 ML AMP HHN SCH ×2 (16:19→21:49)
[2019-03-27] VITALS (11 sets, daily range): BP systolic 105–139; BP diastolic 62–82; PULSE 51–114; RESP 18–21
[2019-03-27] MEDS: ALBUTEROL/IPRATROPIUM (NEB) 3 ML AMP HHN SCH ×6 (00:33→20:04)
[2019-03-27] MEDS: GUAIFENESIN/DM 5ML CUP PO PRN ×5 (02:16→17:34)
[2019-03-27] MEDS: CEPASTAT LOZENGE MT PRN ×5 (02:20→23:38)
[2019-03-27] MEDS: morphine 2 MG INJ IV PRN ×5 (03:04→21:29)
--- NOTE | 2019-03-27 07:28 | CONS ---
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 usual suspect in IVDA is staph or strep but pseudomonas and benjamin can also be seen continue with vanco/zosyn at present fevers have improved and WBC is improved today I will order WBC scan as pt c/o pain over the pacer site I will also order u/s of pacer site to see if there is fluid present 03/20 - GPC growing in all 3 sets of blood cx from 03/17, await ID MRSA in nasal continue with vanco/zosyn pt was seen in this hospital last month under a different MRN and he was evaluated for endocarditis at that time he had corynebacterium in two different sets of blood cx and had a MADINA which was neg for vegetations he was give two weeks of ceftriaxone for pneumonia, they also wondered if he had septic emboli or PE at that time he got an IVC filter but were planning to remove it because he did not have a PE but he left AMA u/s of around pacer site was neg for fluid collection WBC scan is pending 03/21 - WBC scan only has activity in the lung s.aureus is in the blood repeat blood cx on 03/18 are NGTD, repeat again continue with vanco, d/c zosyn 03/24- MSSA in blood, vanco stopped yesterday and switched to ceftriaxone 2gm q24 hours repeat blood cx all remain NGTD 03/25 - low grade temp noted, to repeat CXR procalcitonin was greatly improved but will repeat in a.m. continue with just ceftriaxone, all repeat blood cx are NGTD 03/26 - procalcitonin is pending but CXR from yesterday was slightly improved WBC is still elevated and higher today, clinically pt is much improved I saw that in january he had a marginal positive IgM cocci titer, to repeat this if procalcitonin is higher to broaden pulmonary coverage 03/27 - procalcitonin continues to improve, doubt he has pneumonia failing current therapy await repeat cocci titers to repeat blood cx again x1 2) IVDA pt states he was tested in the last 1-2 months and was neg for HIV and he does not share his needles no hx of hepatitis either I will check into his prior hospitalization here that if it exists is under another MR# - pt has another MRN and his HIV was neg in february he had corynebacterium in two different sets of blood cx then 3) pulmonary infiltrates PACS system is not working on two different computers, I need to see his CT's and CXR to see if these are c/w septic emboli or not vanco/zosyn should cover if he has pneumonia rather than septic emboli procalcitonin has been ordered also 03/20 - his prior chest CT last month shows that he has waxing and waning of pulmonary infiltrates and his cavitary lesions have improved slightly his pulmonary infiltrates are patchy and somewhat large which would be atypical for septic emboli his procalcitonin is very high but bacteremia will also elevated it continue with vanco/zosyn will check for atypical organisms with serology 03/21 - pt is able to bring up some phlegm will order cx s.aureus is likely the culprit continue with vanco, d/c zosyn but add levaquin for atypical coverage 03/24 - sputum cx has c.alb only continue with levaquin and ceftriaxone, legionella was neg 03/25 - mycoplasma IgG was elevated but no IgM sent and at this time results would be back after he has finished his levaquin day 03/11 of levaquin 03/26 - day 6/ of levaquin CXR is improved check cocci titers since he had an equivocal IgM titer in january 201903/27 - today is last day of his oral levaquin await cocci titers 4) ARF 03/21 this is improving 03/24 - resolved 5) leukocytosis 03/26 - pt is clinically improved one of his legs is slightly swollen but not tender and he had a neg LE venous doppler on 03/17 no diarrhea, so c.dif is unlikely no urinary c/o but will repeat u/a and urine cx will check cocci titers since pt had an equivocal IgM titer in january 2019 check RPR pt had a neg HIV test in january 2019 and HIV would not be cause of leukocytosis 03/27 - increasing alk phos, but pt is asymptomatic, will order RUQ u/s increasing WBC but decreasing procalcitonin, repeat both in a.m. get blood cx x1, urine cx is NGTD IV sites look ok consider adding oral diflucan Consultation Date/Type/Reason Admit Date/Time March 17, 2019 at 15:13 Initial Consult Date 03/19/19 Type of Consult ID Requesting Provider: ROBY MILLER MD Date/Time of Note DATE: 03/27/19 TIME: 07:22 24 HR Interval Summary Free Text/Dictation pt is asleep, did not wake up spoke to nurse no new issues overnight no V, D still coughing Exam/Review of Systems Exam Vitals Vital Signs Date Temp Pulse Resp B/P (MAP) Pulse Ox O2 O2 Flow FiO2 Time Delivery Rate 03/27/19 95 10.0 05:28 03/27/19 114 04:00 03/27/19 99.5 20 132/82 04:00 (99) 03/27/19 Simple 02:20 Mask Intake and Output 03/26/19 03/26/19 03/27/19 1515:00 23:00 07:00 IntakeIntake Total 360 ml 2000 ml 1800 ml OutputOutput Total 400 ml 1200 ml 1500 ml BalanceBalance -40 ml 800 ml 300 ml Exam asleep Respiratory: clear to auscultation Cardiovascular: regular rate and rhythm Gastrointestinal: soft Results Result Diagram: 03/27/19 0546 03/27/19 0546 Results 24hrs Laboratory Tests Test 03/26/19 12:35 03/26/19 15:00 03/26/19 16:33 03/27/19 05:46 Lab Scanned Report REFERENCE LAB Urine Color YELLOW Urine Clarity CLEAR Urine pH 5.0 Urine Specific 1.006 [place] Urine Ketones NEGATIVE Urine Nitrite NEGATIVE Urine Bilirubin NEGATIVE Urine Urobilinogen NEGATIVE Urine Leukocyte TRACE A Esterase Urine Microscopic 25 H RBC Urine Microscopic 9 H WBC Urine Bacteria FEW A Urine Hemoglobin 3+ H Urine Glucose NEGATIVE Urine Total NEGATIVE Protein Hemoglobin 10.6 L 10.7 L Hematocrit 33.5 L 33.2 L White Blood Count 20.1 H Red Blood Count 4.08 L Mean Corpuscular 81.4 L Volume Mean Corpuscular 26.2 L Hemoglobin Mean Corpuscular 32.2 Hemoglobin Concent Red Cell 15.1 H Distribution Width Platelet Count 268 Mean Platelet 9.3 Volume Immature 1.200 H Granulocytes % Neutrophils % 84.8 H Lymphocytes % 8.6 L Monocytes % 4.6 Eosinophils % 0.4 Basophils % 0.4 Nucleated Red 0.0 Blood Cells % Immature 0.240 H Granulocytes # Neutrophils # 17.1 H Lymphocytes # 1.7 Monocytes # 0.9 Eosinophils # 0.1 Basophils # 0.1 Nucleated Red 0.0 Blood Cells # Sodium Level 134 L Potassium Level 4.6 Chloride Level 99 Carbon Dioxide 27 Level Anion Gap 8 Blood Urea 24 H Nitrogen Creatinine 1.18 Est Glomerular > 60 Filtrat Rate mL/min Glucose Level 113 Calcium Level 8.2 L Medications Medication Current Medications IV Flush (NS 3 ml) 3 ml PER PROTOCOL IV ; Start 03/17/19 at 15:00 Enoxaparin Sodium (Lovenox) 40 mg DAILY SC Last administered on 03/21/19 08:19; Admin Dose 40 MG; Start 03/18/19 at 15:30; Status Hold Furosemide (Lasix) 20 mg DAILY PO Last administered on 03/26/19 08:42; Admin Dose 20 MG; Start 03/20/19 at 09:00 Ceftriaxone Sodium 50 ml @ 100 mls/hr Q24H IVPB Last administered on 03/26/19 11:01; Admin Dose 100 MLS/HR; Start 03/23/19 at 11:00 Guaifenesin/ Dextromethorphan (Robitussin Dm Liquid Cup) 5 ml Q4H PRN PO COUGH Last administered on 03/27/19 06:29; Admin Dose 5 ML; Start 03/23/19 at 22:00 Phenol (Cepastat Lozenge) 1 lozenge Q1H PRN MT COUGH Last administered on 03/27/19 02:20; Admin Dose 1 LOZENGE; Start 03/24/19 at 13:30 Morphine Sulfate (morphine) 1 mg Q4H PRN IV SEVERE PAIN LEVEL 7-10 Last administered on 03/27/19 03:04; Admin Dose 1 MG; Start 03/24/19 at 16:00 Oxycodone/ Acetaminophen (Percocet (5/ 325)) 1 tab Q6H PRN PO .SEVERE PAIN 7-10 Last administered on 03/25/19 23:24; Admin Dose 1 TAB; Start 03/24/19 at 15:00 Albuterol/ Ipratropium (Duoneb) 3 ml Q4H RESP THERAPY HHN Last administered on 03/27/19 00:33; Admin Dose 3 ML; Start 03/26/19 at 16:30 JANETH LOGAN MD March 27, 2019 07:27
--- NOTE | 2019-03-27 08:53 | PN ---
DATE: 03/27/2019 SUBJECTIVE: The patient is in serious but stable condition. The patient remains on facemask. No ot her events noted. OBJECTIVE: VITAL SIGNS: Blood pressure is 114/77, pulse 101, respirations 20, temperature 97.2. HEENT: Head is normocephalic. NECK: Supple. HEART: Regular rate. LUNGS: Show diminished breath sounds at the base. ABDOMEN: Soft, nontender to palpation without rebound or guarding. EXTREMITIES: Negative for clubbing, cyanosis, no edema. DERMATOLOGIC: No rashes. MUSCULOSKELETAL: No joint effusion. NEUROLOGIC: No change in exam. MEDICATIONS: Reviewed. LABORATORY DATA: Reviewed. ASSESSMENT AND PLAN: 1. Nonoliguric acute kidney injury with previous baseline creatinine of 1.16 mg/dL. Etiology of acu te kidney injury is secondary to hemodynamics, contrast-associated nephropathy. Renal function is im proved. Continue to monitor. 2. Anemia. Continue to monitor hemoglobin and hematocrit levels. 3. Mineral bone disorder, monitor calcium and phosphorus levels. 4. Hypernatremia, improved. 5. Acute hypoxemic respiratory failure secondary to pneumonia, septic emboli. Continue to monitor. Continue supplemental oxygen. Continue antibiotic therapy. 6. Endocarditis. Continue current antibiotic regimen. 7. Acute diastolic heart failure. Continue current medical management. 8. Non-ST elevation myocardial infarction type 2. 9. History of arrhythmia. Continue to monitor. Dictated By: ELSIE CHRISTENSEN DO NR/NTS Conf#: [id number] DID#: [id number] CC: ROBY MILLER MD; LON MENDOZA MD; ROWAN OVALLE;*End*
[2019-03-27] MEDS: FUROSEMIDE 20 MG TAB PO SCH (10:00)
--- NOTE | 2019-03-27 11:01 | PN ---
Date/Time of Note Date/Time of Note DATE: 03/27/19 TIME: 11:00 Assessment/Plan VTE Prophylaxis Risk score (from Nsg)>0 risk: 2 SCD applied (from Nsg): Yes Pharmacological prophylaxis: other Lines/Catheters IV Catheter Type (from Nrsg): Saline Lock Urinary Cath still in place: No Assessment/Plan Hospital Course S: Patient still with occasional hemoptysis, seen by ID team this morning. Since yesterday back on breathing treatments every 4 [id number] with some slightly better relief of his shortness of breath and cough symptoms. O: VS - see below EXAM: Lying in bed, wearing simple mask PERRL, EOMI Supple Slightly distant breath sounds bilaterally S1, S2 heard PPM No edema A/P: 28 yo male with h/o valve replacements and PPM following endocarditis in 2017 (specifics unclear) who presented with fever, tachypnea, and hypoxia with pulmonary infiltrates following IV meth use, with positive endocarditis again. 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 Repeat cultures negative to date. -Per ID team continue 2 g ceftriaxone (until May 04) and levaquin (until March 28) for now. -cultures per ID recs # Acute hypoxic respiratory failure with fever/sepsis- 2/2 pneumonia and septic embolus as seen on CT-A. - Continue abx per Dr Hastings. Given septic embolus not VTE we are not giving anticoagulation - Monitor, continue O2 as needed - Continue antitussives as needed for cough # CLAUDIA:- Likely from sepsis, perhaps immunologic phenomenon from endocarditis, resolving now-of note, imaging suggests CKD -Monitor, follow-up renal recommendations # H/o valve replacements and PPM-presently appears stable -Monitor Dispo: As mentioned above will need antibiotics for the dates listed. If patient can be transitioned to oral p.o. antibiotics, ID team recommends close follow-up at preferably in ID clinic, corrections caseworker is working on clinic options for this as well as SNF placement. Result Diagram: 03/27/19 0546 03/27/19 0546 Results 24hrs Laboratory Tests Test 03/26/19 12:35 03/26/19 15:00 03/26/19 16:33 03/27/19 05:46 Lab Scanned Report REFERENCE LAB Urine Color YELLOW Urine Clarity CLEAR Urine pH 5.0 Urine Specific 1.006 [place] Urine Ketones NEGATIVE Urine Nitrite NEGATIVE Urine Bilirubin NEGATIVE Urine Urobilinogen NEGATIVE Urine Leukocyte TRACE A Esterase Urine Microscopic 25 H RBC Urine Microscopic 9 H WBC Urine Bacteria FEW A Urine Hemoglobin 3+ H Urine Glucose NEGATIVE Urine Total NEGATIVE Protein Hemoglobin 10.6 L 10.7 L Hematocrit 33.5 L 33.2 L White Blood Count 20.1 H Red Blood Count 4.08 L Mean Corpuscular 81.4 L Volume Mean Corpuscular 26.2 L Hemoglobin Mean Corpuscular 32.2 Hemoglobin Concent Red Cell 15.1 H Distribution Width Platelet Count 268 Mean Platelet 9.3 Volume Immature 1.200 H Granulocytes % Neutrophils % 84.8 H Lymphocytes % 8.6 L Monocytes % 4.6 Eosinophils % 0.4 Basophils % 0.4 Nucleated Red 0.0 Blood Cells % Immature 0.240 H Granulocytes # Neutrophils # 17.1 H Lymphocytes # 1.7 Monocytes # 0.9 Eosinophils # 0.1 Basophils # 0.1 Nucleated Red 0.0 Blood Cells # Sodium Level 134 L Potassium Level 4.6 Chloride Level 99 Carbon Dioxide 27 Level Anion Gap 8 Blood Urea 24 H Nitrogen Creatinine 1.18 Est Glomerular > 60 Filtrat Rate mL/min Glucose Level 113 Calcium Level 8.2 L Exam/Review of Systems Exam Vitals Vital Signs Date Temp Pulse Resp B/P (MAP) Pulse Ox O2 O2 Flow FiO2 Time Delivery Rate 03/27/19 97.2 98 20 118/76 100 Mask 10:55 (90) 03/27/19 10.0 10:17 Intake and Output 03/26/19 03/26/19 03/27/19 1515:00 23:00 07:00 IntakeIntake Total 360 ml 2000 ml 1800 ml OutputOutput Total 400 ml 1200 ml 1500 ml BalanceBalance -40 ml 800 ml 300 ml Results Results 24hrs Laboratory Tests Test 03/26/19 12:35 03/26/19 15:00 03/26/19 16:33 03/27/19 05:46 Lab Scanned Report REFERENCE LAB Urine Color YELLOW Urine Clarity CLEAR Urine pH 5.0 Urine Specific 1.006 [place] Urine Ketones NEGATIVE Urine Nitrite NEGATIVE Urine Bilirubin NEGATIVE Urine Urobilinogen NEGATIVE Urine Leukocyte TRACE A Esterase Urine Microscopic 25 H RBC Urine Microscopic 9 H WBC Urine Bacteria FEW A Urine Hemoglobin 3+ H Urine Glucose NEGATIVE Urine Total NEGATIVE Protein Hemoglobin 10.6 L 10.7 L Hematocrit 33.5 L 33.2 L White Blood Count 20.1 H Red Blood Count 4.08 L Mean Corpuscular 81.4 L Volume Mean Corpuscular 26.2 L Hemoglobin Mean Corpuscular 32.2 Hemoglobin Concent Red Cell 15.1 H Distribution Width Platelet Count 268 Mean Platelet 9.3 Volume Immature 1.200 H Granulocytes % Neutrophils % 84.8 H Lymphocytes % 8.6 L Monocytes % 4.6 Eosinophils % 0.4 Basophils % 0.4 Nucleated Red 0.0 Blood Cells % Immature 0.240 H Granulocytes # Neutrophils # 17.1 H Lymphocytes # 1.7 Monocytes # 0.9 Eosinophils # 0.1 Basophils # 0.1 Nucleated Red 0.0 Blood Cells # Sodium Level 134 L Potassium Level 4.6 Chloride Level 99 Carbon Dioxide 27 Level Anion Gap 8 Blood Urea 24 H Nitrogen Creatinine 1.18 Est Glomerular > 60 Filtrat Rate mL/min Glucose Level 113 Calcium Level 8.2 L Medications Medication Current Medications IV Flush (NS 3 ml) 3 ml PER PROTOCOL IV ; Start 03/17/19 at 15:00 Enoxaparin Sodium (Lovenox) 40 mg DAILY SC Last administered on 03/21/19 08:19; Admin Dose 40 MG; Start 03/18/19 at 15:30; Status Hold Furosemide (Lasix) 20 mg DAILY PO Last administered on 03/27/19 10:00; Admin Dose 20 MG; Start 03/20/19 at 09:00 Ceftriaxone Sodium 50 ml @ 100 mls/hr Q24H IVPB Last administered on 03/26/19at 11:01; Admin Dose 100 MLS/HR; Start 03/23/19 at 11:00 Guaifenesin/ Dextromethorphan (Robitussin Dm Liquid Cup) 5 ml Q4H PRN PO COUGH Last administered on 03/27/19 09:59; Admin Dose 5 ML; Start 03/23/19 at 22:00 Phenol (Cepastat Lozenge) 1 lozenge Q1H PRN MT COUGH Last administered on 03/27/19 02:20; Admin Dose 1 LOZENGE; Start 03/24/19 at 13:30 Morphine Sulfate (morphine) 1 mg Q4H PRN IV SEVERE PAIN LEVEL 7-10 Last adminis tered on 03/27/19 09:59; Admin Dose 1 MG; Start 5/20/19 at 16:00 Oxycodone/ Acetaminophen (Percocet (5/ 325)) 1 tab Q6H PRN PO .SEVERE PAIN 7-10 Last administered on 03/25/19at 23:24; Admin Dose 1 TAB; Start 03/24/19 at 15:00 Albuterol/ Ipratropium (Duoneb) 3 ml Q4H RESP THERAPY HHN Last administered on 03/27/19at 00:33; Admin Dose 3 ML; Start 03/26/19 at 16:30 ROWAN OVALLE March 27, 2019 11:01
[2019-03-27] MEDS: FLUCONAZOLE 200 MG TAB PO SCH (11:48)
[2019-03-27] MEDS: CEFTRIAXONE 2 GM/50 ML (PMX) 50 ML IVPB SCH (11:48)
[2019-03-27] MEDS: SENNA TAB PO SCH (21:29)
[2019-03-28] VITALS (12 sets, daily range): BP systolic 110–143; BP diastolic 56–80; PULSE 67–103; RESP 17–23
[2019-03-28] MEDS: ALBUTEROL/IPRATROPIUM (NEB) 3 ML AMP HHN SCH ×6 (00:55→20:44)
[2019-03-28] MEDS: GUAIFENESIN/DM 5ML CUP PO PRN ×4 (02:19→20:27)
[2019-03-28] MEDS: morphine 2 MG INJ IV PRN ×4 (02:19→20:27)
--- NOTE | 2019-03-28 07:05 | CONS ---
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 usual suspect in IVDA is staph or strep but pseudomonas and benjamin can also be seen continue with vanco/zosyn at present fevers have improved and WBC is improved today I will order WBC scan as pt c/o pain over the pacer site I will also order u/s of pacer site to see if there is fluid present 03/20 - GPC growing in all 3 sets of blood cx from 03/17, await ID MRSA in nasal continue with vanco/zosyn pt was seen in this hospital last month under a different MRN and he was evaluated for endocarditis at that time he had corynebacterium in two different sets of blood cx and had a MADINA which was neg for vegetations he was give two weeks of ceftriaxone for pneumonia, they also wondered if he had septic emboli or PE at that time he got an IVC filter but were planning to remove it because he did not have a PE but he left AMA u/s of around pacer site was neg for fluid collection WBC scan is pending 03/21 - WBC scan only has activity in the lung s.aureus is in the blood repeat blood cx on 03/18 are NGTD, repeat again continue with vanco, d/c zosyn 03/24- MSSA in blood, vanco stopped yesterday and switched to ceftriaxone 2gm q24 hours repeat blood cx all remain NGTD 03/25 - low grade temp noted, to repeat CXR procalcitonin was greatly improved but will repeat in a.m. continue with just ceftriaxone, all repeat blood cx are NGTD 03/26 - procalcitonin is pending but CXR from yesterday was slightly improved WBC is still elevated and higher today, clinically pt is much improved I saw that in january he had a marginal positive IgM cocci titer, to repeat this if procalcitonin is higher to broaden pulmonary coverage 03/27 - procalcitonin continues to improve, doubt he has pneumonia failing current therapy await repeat cocci titers to repeat blood cx again x1 03/28 - stable 2) IVDA pt states he was tested in the last 1-2 months and was neg for HIV and he does not share his needles no hx of hepatitis either I will check into his prior hospitalization here that if it exists is under another MR# / - pt has another MRN and his HIV was neg in february he had corynebacterium in two different sets of blood cx then 3) pulmonary infiltrates PACS system is not working on two different computers, I need to see his CT's and CXR to see if these are c/w septic emboli or not vanco/zosyn should cover if he has pneumonia rather than septic emboli procalcitonin has been ordered also 03/20 - his prior chest CT last month shows that he has waxing and waning of pulmonary infiltrates and his cavitary lesions have improved slightly his pulmonary infiltrates are patchy and somewhat large which would be atypical for septic emboli his procalcitonin is very high but bacteremia will also elevated it continue with vanco/zosyn will check for atypical organisms with serology 03/21 - pt is able to bring up some phlegm will order cx s.aureus is likely the culprit continue with vanco, d/c zosyn but add levaquin for atypical coverage 03/24 - sputum cx has c.alb only continue with levaquin and ceftriaxone, legionella was neg 03/25 - mycoplasma IgG was elevated but no IgM sent and at this time results would be back after he has finished his levaquin day 03/11 of levaquin 03/26 - day 6/ of levaquin CXR is improved check cocci titers since he had an equivocal IgM titer in january 201903/27 - today is last day of his oral levaquin await cocci titers 4) ARF 03/21 this is improving 03/24 - resolved 5) leukocytosis 03/26 - pt is clinically improved one of his legs is slightly swollen but not tender and he had a neg LE venous doppler on 03/17 no diarrhea, so c.dif is unlikely no urinary c/o but will repeat u/a and urine cx will check cocci titers since pt had an equivocal IgM titer in january 2019 check RPR pt had a neg HIV test in january 2019 and HIV would not be cause of leukocytosis 03/27 - increasing alk phos, but pt is asymptomatic, will order RUQ u/s increasing WBC but decreasing procalcitonin, repeat both in a.m. get blood cx x1, urine cx is NGTD IV sites look ok consider adding oral diflucan 03/28 - improved WBC abd u/s shows borderline GB wall thickening and minimally increase CBD diameter, likely not significant continue with just ceftriaxone AF last 24 hours Consultation Date/Type/Reason Admit Date/Time March 17, 2019 at 15:13 Initial Consult Date 03/19/19 Type of Consult ID Requesting Provider: ROBY MILLER MD Date/Time of Note DATE: 03/28/19 TIME: 07:02 24 HR Interval Summary Free Text/Dictation stable no new issues Exam/Review of Systems Exam Vitals Vital Signs Date Temp Pulse Resp B/P (MAP) Pulse Ox O2 O2 Flow FiO2 Time Delivery Rate 03/28/19 90 04:00 03/28/19 98.3 21 127/77 98 03:31 (94) 03/28/19 8.0 00:55 03/27/19 Simple 22:18 Mask Intake and Output 03/27/19 03/27/19 03/28/19 1515:00 23:00 07:00 IntakeIntake Total 50 ml 2000 ml OutputOutput Total 2000 ml BalanceBalance 50 ml 0 ml Respiratory: clear to auscultation Cardiovascular: regular rate and rhythm Gastrointestinal: soft, non-tender Results Result Diagram: 03/28/19 0520 03/28/19 0520 Results 24hrs Laboratory Tests Test 03/28/19 05:20 White Blood Count 12.9 #H Red Blood Count 3.62 L Hemoglobin 9.5 L Hematocrit 29.8 L Mean Corpuscular Volume 82.3 Mean Corpuscular Hemoglobin 26.2 L Mean Corpuscular Hemoglobin Concent 31.9 L Red Cell Distribution Width 14.8 H Platelet Count 262 Mean Platelet Volume 9.4 Immature Granulocytes % 0.900 H Neutrophils % 75.3 Lymphocytes % 15.0 Monocytes % 5.0 Eosinophils % 3.2 Basophils % 0.6 Nucleated Red Blood Cells % 0.0 Immature Granulocytes # 0.120 H Neutrophils # 9.7 H Lymphocytes # 1.9 Monocytes # 0.6 Eosinophils # 0.4 Basophils # 0.1 Nucleated Red Blood Cells # 0.0 Sodium Level 135 Potassium Level 4.0 Chloride Level 100 Carbon Dioxide Level 28 Anion Gap 7 Blood Urea Nitrogen 23 H Creatinine 1.09 Est Glomerular Filtrat Rate mL/min > 60 Glucose Level 117 Calcium Level 8.3 L Total Bilirubin 0.6 Direct Bilirubin 0.00 Indirect Bilirubin 0.6 Gamma Glutamyl Transpeptidase 80 H Aspartate Amino Transf (AST/SGOT) 43 Alanine Aminotransferase (ALT/SGPT) 23 Alkaline Phosphatase 221 H Total Protein 8.3 H Albumin 3.0 L Globulin 5.30 H Albumin/Globulin Ratio 0.56 Procalcitonin 1.04 H Medications Medication Current Medications IV Flush (NS 3 ml) 3 ml PER PROTOCOL IV ; Start 03/17/19 at 15:00 Enoxaparin Sodium (Lovenox) 40 mg DAILY SC Last administered on 03/21/19 08:19; Admin Dose 40 MG; Start 03/18/19 at 15:30; Status Hold Furosemide (Lasix) 20 mg DAILY PO Last administered on 03/27/19 10:00; Admin Dose 20 MG; Start 03/20/19 at 09:00 Ceftriaxone Sodium 50 ml @ 100 mls/hr Q24H IVPB Last administered on 03/27/19 11:48; Admin Dose 100 MLS/HR; Start 03/23/19 at 11:00 Guaifenesin/ Dextromethorphan (Robitussin Dm Liquid Cup) 5 ml Q4H PRN PO COUGH Last administered on 03/28/19 02:19; Admin Dose 5 ML; Start 03/23/19 at 22:00 Phenol (Cepastat Lozenge) 1 lozenge Q1H PRN MT COUGH Last administered on 03/27/19 23:38; Admin Dose 1 LOZENGE; Start 03/24/19 at 13:30 Morphine Sulfate (morphine) 1 mg Q4H PRN IV SEVERE PAIN LEVEL 7-10 Last administered on 03/28/19 02:19; Admin Dose 1 MG; Start 03/24/19 at 16:00 Oxycodone/ Acetaminophen (Percocet (5/ 325)) 1 tab Q6H PRN PO .SEVERE PAIN 7-10 Last administered on 03/25/19 23:24; Admin Dose 1 TAB; Start 03/24/19 at 15:00 Albuterol/ Ipratropium (Duoneb) 3 ml Q4H RESP THERAPY HHN Last administered on 03/27/19 20:04; Admin Dose 3 ML; Start 03/26/19 at 16:30 Fluconazole (Diflucan) 200 mg DAILY PO Last administered on 03/27/19 11:48; Admin Dose 200 MG; Start 5/23/19 at 11:30 Senna (Senokot) 1 tab BID PO Last administered on 03/27/19at 21:29; Admin Dose 1 TAB; Start 03/27/19 at 21:00 Docusate Sodium (Colace) 100 mg BID PRN PO CONSTIPATION; Start 03/27/19 at 15:30 JANETH LOGAN MD March 28, 2019 07:05
--- NOTE | 2019-03-28 09:03 | PN ---
DATE: 03/28/2019 SUBJECTIVE: The patient remains on respiratory distress, hypoxemic on facemask. The patient is able to answer simple questions. No other events noted. OBJECTIVE: VITAL SIGNS: Blood pressure is 118/77, respirations 19, pulse 90, temperature 97.9. HEENT: Head is normocephalic. NECK: Supple. HEART: Regular rate. LUNGS: Show diminished breath sounds at the base. ABDOMEN: Soft, nontender to palpation without rebound or guarding. EXTREMITIES: Negative for clubbing, cyanosis, no edema. DERMATOLOGIC: No rashes. MUSCULOSKELETAL: No joint effusion. NEUROLOGIC: No change in exam. MEDICATIONS: The patient's medications have been reviewed. LABORATORY DATA: Reviewed. ASSESSMENT AND PLAN: 1. Nonoliguric acute kidney injury with previous baseline creatinine of 1.16 mg/dL. Etiology of acu te kidney injury is secondary to hemodynamics, contrast-associated nephropathy. Renal function is im proved. Continue current treatment plan, supportive care, renally dose all medications. 2. Anemia. Continue to monitor hemoglobin and hematocrit levels. 3. Mineral bone disorder, monitor calcium and phosphorus levels. 4. Hypernatremia, improved. 5. Acute hypoxemic respiratory failure secondary to pneumonia, septic emboli. Continue to monitor. Continue supplemental oxygen and facemask. Continue antibiotics. 6. Endocarditis, continue current antibiotic regimen. Follow up with infectious disease. 7. Acute diastolic heart failure. Continue current medical management. The patient appears euvolem ic. 8. Non-ST elevation myocardial infarction type 2. 9. History of arrhythmia. Dictated By: ELSIE CHRISTENSEN DO NR/NTS Conf#: [id number] DID#: [id number] CC: ROBY MILLER MD; LON MENDOZA MD; ROWAN OVALLE;*EndCC*
[2019-03-28] MEDS: SENNA TAB PO SCH ×2 (09:15→20:27)
[2019-03-28] MEDS: FLUCONAZOLE 200 MG TAB PO SCH (09:15)
[2019-03-28] MEDS: FUROSEMIDE 20 MG TAB PO SCH (09:15)
--- NOTE | 2019-03-28 11:40 | PN ---
Date/Time of Note Date/Time of Note DATE: 03/28/19 TIME: 11:36 Assessment/Plan VTE Prophylaxis Risk score (from Ns)>0 risk: 1 SCD applied (from Ns): Yes Pharmacological prophylaxis: NA/contraindicated Pharm contraindication: bleeding Lines/Catheters IV [facility] Saline Lock Urinary Cath still in place: No Assessment/Plan Hospital Course S: Patient still with occasional hemoptysis, although slightly less in amount since yesterday after Lovenox was stopped. Still on oxygen supplementation. Seen by renal, social media marketing specialist, and infectious disease teams earlier today. O: VS - see below EXAM: Lying in bed, wearing simple mask PERRL, EOMI Supple Slightly distant breath sounds bilaterally S1, S2 heard PPM No edema A/P: 28 yo male with h/o valve replacements and PPM following endocarditis in 2017 (specifics unclear) who presented with fever, tachypnea, and hypoxia with pulmonary infiltrates following IV meth use, with positive endocarditis again. 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 Repeat cultures negative to date. -Per ID team continue 2 g ceftriaxone (until May 04) and levaquin (until March 28) for now. -cultures per ID recs # Acute hypoxic respiratory failure with fever/sepsis- 2/2 pneumonia and septic embolus as seen on CTA performed earlier this admission although a suboptimal- patient again on admission in January 2019 was diagnosed with pulmonary embolism and was sent home with Eliquis at that time, unclear he has been compliant with this at home however. - Continue abx per Dr Hastings. -We will recheck CTA chest since patient is having some hemoptysis which is slightly worsened overall since admission, and given his history of septic emboli and/or pulmonary embolism-off of anticoagulation presently secondary to septic emboli being the possible source as well as the hemoptysis. - Monitor, continue O2 as needed - Continue antitussives as needed for cough # CLAUDIA: Resolving now, occurred earlier likely from sepsis, perhaps immunologic phenomenon from endocarditis -Monitor, follow-up renal recommendations # H/o valve replacements and PPM-presently appears stable -Monitor Dispo: As mentioned above will need antibiotics for the dates listed. If patient can be transitioned to oral p.o. antibiotics, ID team recommends close follow-up at preferably in ID clinic, caser is working on clinic options for this, as well as SNF placement if patient can preferably get that. Result Diagram: 03/28/1920 03/28/1920 Results 24hrs Laboratory Tests Test 03/28/19 05:20 White Blood Count 12.9 #H Red Blood Count 3.62 L Hemoglobin 9.5 L Hematocrit 29.8 L Mean Corpuscular Volume 82.3 Mean Corpuscular Hemoglobin 26.2 L Mean Corpuscular Hemoglobin Concent 31.9 L Red Cell Distribution Width 14.8 H Platelet Count 262 Mean Platelet Volume 9.4 Immature Granulocytes % 0.900 H Neutrophils % 75.3 Lymphocytes % 15.0 Monocytes % 5.0 Eosinophils % 3.2 Basophils % 0.6 Nucleated Red Blood Cells % 0.0 Immature Granulocytes # 0.120 H Neutrophils # 9.7 H Lymphocytes # 1.9 Monocytes # 0.6 Eosinophils # 0.4 Basophils # 0.1 Nucleated Red Blood Cells # 0.0 Sodium Level 135 Potassium Level 4.0 Chloride Level 100 Carbon Dioxide Level 28 Anion Gap 7 Blood Urea Nitrogen 23 H Creatinine 1.09 Est Glomerular Filtrat Rate mL/min > 60 Glucose Level 117 Calcium Level 8.3 L Total Bilirubin 0.6 Direct Bilirubin 0.00 Indirect Bilirubin 0.6 Gamma Glutamyl Transpeptidase 80 H Aspartate Amino Transf (AST/SGOT) 43 Alanine Aminotransferase (ALT/SGPT) 23 Alkaline Phosphatase 221 H Total Protein 8.3 H Albumin 3.0 L Globulin 5.30 H Albumin/Globulin Ratio 0.56 Procalcitonin 1.04 H Exam/Review of Systems Exam Vitals Vital Signs Date Temp Pulse Resp B/P (MAP) Pulse Ox O2 O2 Flow FiO2 Time Delivery Rate 03/28/19 98.1 95 19 110/65 96 Mask 11:02 (80) 03/28/19 10.0 09:00 Intake and Output 03/27/19 03/27/19 03/28/19 1515:00 23:00 07:00 IntakeIntake Total 50 ml 2000 ml 2200 ml OutputOutput Total 2000 ml 1800 ml BalanceBalance 50 ml 0 ml 400 ml Results Results 24hrs Laboratory Tests Test 03/28/19 05:20 White Blood Count 12.9 #H Red Blood Count 3.62 L Hemoglobin 9.5 L Hematocrit 29.8 L Mean Corpuscular Volume 82.3 Mean Corpuscular Hemoglobin 26.2 L Mean Corpuscular Hemoglobin Concent 31.9 L Red Cell Distribution Width 14.8 H Platelet Count 262 Mean Platelet Volume 9.4 Immature Granulocytes % 0.900 H Neutrophils % 75.3 Lymphocytes % 15.0 Monocytes % 5.0 Eosinophils % 3.2 Basophils % 0.6 Nucleated Red Blood Cells % 0.0 Immature Granulocytes # 0.120 H Neutrophils # 9.7 H Lymphocytes # 1.9 Monocytes # 0.6 Eosinophils # 0.4 Basophils # 0.1 Nucleated Red Blood Cells # 0.0 Sodium Level 135 Potassium Level 4.0 Chloride Level 100 Carbon Dioxide Level 28 Anion Gap 7 Blood Urea Nitrogen 23 H Creatinine 1.09 Est Glomerular Filtrat Rate mL/min > 60 Glucose Level 117 Calcium Level 8.3 L Total Bilirubin 0.6 Direct Bilirubin 0.00 Indirect Bilirubin 0.6 Gamma Glutamyl Transpeptidase 80 H Aspartate Amino Transf (AST/SGOT) 43 Alanine Aminotransferase (ALT/SGPT) 23 Alkaline Phosphatase 221 H Total Protein 8.3 H Albumin 3.0 L Globulin 5.30 H Albumin/Globulin Ratio 0.56 Procalcitonin 1.04 H Medications Medication Current Medications IV Flush (NS 3 ml) 3 ml PER PROTOCOL IV ; Start 03/17/19 at 15:00 Enoxaparin Sodium (Lovenox) 40 mg DAILY SC Last administered on 03/21/19 08:19; Admin Dose 40 MG; Start 03/18/19 at 15:30; Status Hold Furosemide (Lasix) 20 mg DAILY PO Last administered on 03/28/19 09:15; Admin Dose 20 MG; Start 03/20/19 at 09:00 Ceftriaxone Sodium 50 ml @ 100 mls/hr Q24H IVPB Last administered on 03/27/19at 11:48; Admin Dose 100 MLS/HR; Start 03/23/19 at 11:00 Guaifenesin/ Dextromethorphan (Robitussin Dm Liquid Cup) 5 ml Q4H PRN PO COUGH Last administered on 03/28/19 09:15; Admin Dose 5 ML; Start 03/23/19 at 22:00 Phenol (Cepastat Lozenge) 1 lozenge Q1H PRN MT COUGH Last administered on 03/27/19at 23:38; Admin Dose 1 LOZENGE; Start 03/24/19 at 13:30 Morphine Sulfate (morphine) 1 mg Q4H PRN IV SEVERE PAIN LEVEL 7-10 Last administered on 03/28/19 09:16; Admin Dose 1 MG; Start 03/24/19 at 16:00 Oxycodone/ Acetaminophen (Percocet (5/ 325)) 1 tab Q6H PRN PO .SEVERE PAIN 7-10 Last administered on 03/25/19 23:24; Admin Dose 1 TAB; Start 03/24/19 at 15:00 Albuterol/ Ipratropium (Duoneb) 3 ml Q4H RESP THERAPY HHN Last administered on 03/28/19 08:54; Admin Dose 3 ML; Start 03/26/19 at 16:30 Fluconazole (Diflucan) 200 mg DAILY PO Last administered on 03/28/19 09:15; Admin Dose 200 MG; Start 03/27/19 at 11:30 Senna (Senokot) 1 tab BID PO Last administered on 03/28/19 09:15; Admin Dose 1 TAB; Start 03/27/19 at 21:00 Docusate Sodium (Colace) 100 mg BID PRN PO CONSTIPATION; Start 03/27/19 at 15:30 ROWAN OVALLE March 28, 2019 11:40
[2019-03-28] MEDS: CEFTRIAXONE 2 GM/50 ML (PMX) 50 ML IVPB SCH (12:20)
[2019-03-28] MEDS: CEPASTAT LOZENGE MT PRN ×2 (12:20→16:28)
[2019-03-28] MEDS ORDERED: SOD CHLORIDE 0.9% 100 ML ONE (15:07)
[2019-03-28] MEDS ORDERED: IOHEXOL 100 ML ONE (15:08)
[2019-03-28] MEDS ORDERED: ENOXAPARIN 80 MG/0.8 ML SYG SC SCH (18:00)
[2019-03-29] VITALS (11 sets, daily range): BP systolic 115–133; BP diastolic 67–88; PULSE 54–102; RESP 18–21
[2019-03-29] MEDS: ALBUTEROL/IPRATROPIUM (NEB) 3 ML AMP HHN SCH ×6 (01:43→21:38)
[2019-03-29] MEDS: CEPASTAT LOZENGE MT PRN (02:10)
[2019-03-29] MEDS: GUAIFENESIN/DM 5ML CUP PO PRN ×5 (02:10→22:29)
[2019-03-29] MEDS: morphine 2 MG INJ IV PRN ×5 (02:11→22:29)
--- NOTE | 2019-03-29 07:37 | CONS ---
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 usual suspect in IVDA is staph or strep but pseudomonas and benjamin can also be seen continue with vanco/zosyn at present fevers have improved and WBC is improved today I will order WBC scan as pt c/o pain over the pacer site I will also order u/s of pacer site to see if there is fluid present 03/20 - GPC growing in all 3 sets of blood cx from 03/17, await ID MRSA in nasal continue with vanco/zosyn pt was seen in this hospital last month under a different MRN and he was evaluated for endocarditis at that time he had corynebacterium in two different sets of blood cx and had a MADINA which was neg for vegetations he was give two weeks of ceftriaxone for pneumonia, they also wondered if he had septic emboli or PE at that time he got an IVC filter but were planning to remove it because he did not have a PE but he left AMA u/s of around pacer site was neg for fluid collection WBC scan is pending 03/21 - WBC scan only has activity in the lung s.aureus is in the blood repeat blood cx on 03/18 are NGTD, repeat again continue with vanco, d/c zosyn 03/24- MSSA in blood, vanco stopped yesterday and switched to ceftriaxone 2gm q24 hours repeat blood cx all remain NGTD 03/25 - low grade temp noted, to repeat CXR procalcitonin was greatly improved but will repeat in a.m. continue with just ceftriaxone, all repeat blood cx are NGTD 03/26 - procalcitonin is pending but CXR from yesterday was slightly improved WBC is still elevated and higher today, clinically pt is much improved I saw that in january he had a marginal positive IgM cocci titer, to repeat this if procalcitonin is higher to broaden pulmonary coverage 03/27 - procalcitonin continues to improve, doubt he has pneumonia failing current therapy await repeat cocci titers to repeat blood cx again x1 03/28 - stable 03/29 - repeat blood cx remain neg continue with ceftriaxone 2) IVDA pt states he was tested in the last 1-2 months and was neg for HIV and he does not share his needles no hx of hepatitis either I will check into his prior hospitalization here that if it exists is under another MR# / - pt has another MRN and his HIV was neg in february he had corynebacterium in two different sets of blood cx then 3) pulmonary infiltrates PACS system is not working on two different computers, I need to see his CT's and CXR to see if these are c/w septic emboli or not vanco/zosyn should cover if he has pneumonia rather than septic emboli procalcitonin has been ordered also 03/20 - his prior chest CT last month shows that he has waxing and waning of pulmonary infiltrates and his cavitary lesions have improved slightly his pulmonary infiltrates are patchy and somewhat large which would be atypical for septic emboli his procalcitonin is very high but bacteremia will also elevated it continue with vanco/zosyn will check for atypical organisms with serology 03/21 - pt is able to bring up some phlegm will order cx s.aureus is likely the culprit continue with vanco, d/c zosyn but add levaquin for atypical coverage 03/24 - sputum cx has c.alb only continue with levaquin and ceftriaxone, legionella was neg 03/25 - mycoplasma IgG was elevated but no IgM sent and at this time results would be back after he has finished his levaquin day 03/11 of levaquin 03/26 - day 6/ of levaquin CXR is improved check cocci titers since he had an equivocal IgM titer in january 201903/27 - today is last day of his oral levaquin await cocci titers 03/29 - pt has new areas of probable septic emboli pt had his lovenox stopped and is now re-started cause of new septic emboli are either due to ongoing infection of TV, which would indicate he needs surgery or due to a hypercoagulable state and in SBE the development of APLA can occur so will order this test in a.m. I will also repeat LE venous dopplers (pt already has an IVC filter in 4) ARF 03/21 this is improving 03/24 - resolved 5) leukocytosis 03/26 - pt is clinically improved one of his legs is slightly swollen but not tender and he had a neg LE venous doppler on 03/17 no diarrhea, so c.dif is unlikely no urinary c/o but will repeat u/a and urine cx will check cocci titers since pt had an equivocal IgM titer in january 2019 check RPR pt had a neg HIV test in january 2019 and HIV would not be cause of leukocytosis 03/27 - increasing alk phos, but pt is asymptomatic, will order RUQ u/s increasing WBC but decreasing procalcitonin, repeat both in a.m. get blood cx x1, urine cx is NGTD IV sites look ok consider adding oral diflucan 03/28 - improved WBC abd u/s shows borderline GB wall thickening and minimally increase CBD diameter, likely not significant continue with just ceftriaxone AF last 24 hours Consultation Date/Type/Reason Admit Date/Time March 17, 2019 at 15:13 Initial Consult Date 03/19/19 Type of Consult ID Requesting Provider: ROBY MILLER MD Date/Time of Note DATE: 03/29/19 TIME: 07:33 24 HR Interval Summary Free Text/Dictation pt is on less O2 still has some hemopytsis and upper chest pain no N, V, D appetite is good Exam/Review of Systems Exam Vitals Vital Signs Date Temp Pulse Resp B/P (MAP) Pulse Ox O2 O2 Flow FiO2 Time Delivery Rate 03/29/19 98.4 100 20 131/88 100 07:26 (102) 03/29/19 6.0 01:43 03/29/19 Simple 01:43 Mask Intake and Output 03/28/19 03/28/19 03/29/19 1515:00 23:00 07:00 IntakeIntake Total 50 ml 2500 ml 2300 ml OutputOutput Total 2000 ml 2500 ml BalanceBalance 50 ml 500 ml -200 ml Constitutional: alert, oriented Eyes: nl sclera Respiratory: clear to auscultation Cardiovascular: regular rate and rhythm Gastrointestinal: soft, non-tender Results Result Diagram: 03/29/19 0539 03/29/19 0539 Results 24hrs Laboratory Tests Test 03/29/19 05:39 03/29/19 05:40 White Blood Count 12.0 H Red Blood Count 3.83 L Hemoglobin 10.1 L Hematocrit 31.2 L Mean Corpuscular Volume 81.5 L Mean Corpuscular Hemoglobin 26.4 L Mean Corpuscular Hemoglobin Concent 32.4 Red Cell Distribution Width 15.0 H Platelet Count 306 Mean Platelet Volume 9.3 Immature Granulocytes % 0.700 H Neutrophils % 75.7 Lymphocytes % 14.9 L Monocytes % 5.9 Eosinophils % 2.2 Basophils % 0.6 Nucleated Red Blood Cells % 0.0 Immature Granulocytes # 0.080 H Neutrophils # 9.1 H Lymphocytes # 1.8 Monocytes # 0.7 Eosinophils # 0.3 Basophils # 0.1 Nucleated Red Blood Cells # 0.0 Sodium Level 135 Potassium Level 4.0 Chloride Level 100 Carbon Dioxide Level 28 Anion Gap 7 Blood Urea Nitrogen 18 Creatinine 1.05 Est Glomerular Filtrat Rate mL/min > 60 Glucose Level 107 Calcium Level 8.5 Phosphorus Level 4.6 Magnesium Level 1.8 Medications Medication Current Medications IV Flush (NS 3 ml) 3 ml PER PROTOCOL IV ; Start 03/17/19 at 15:00 Enoxaparin Sodium (Lovenox) 40 mg DAILY SC Last administered on 03/21/19 08:19; Admin Dose 40 MG; Start 03/18/19 at 15:30; Status Hold Furosemide (Lasix) 20 mg DAILY PO Last administered on 03/28/19 09:15; Admin Dose 20 MG; Start 03/20/19 at 09:00 Ceftriaxone Sodium 50 ml @ 100 mls/hr Q24H IVPB Last administered on 03/28/19 12:20; Admin Dose 100 MLS/HR; Start 03/23/19 at 11:00 Guaifenesin/ Dextromethorphan (Robitussin Dm Liquid Cup) 5 ml Q4H PRN PO COUGH Last administered on 03/29/19 02:10; Admin Dose 5 ML; Start 03/23/19 at 22:00 Phenol (Cepastat Lozenge) 1 lozenge Q1H PRN MT COUGH Last administered on 03/29/19 02:10; Admin Dose 1 LOZENGE; Start 03/24/19 at 13:30 Morphine Sulfate (morphine) 1 mg Q4H PRN IV SEVERE PAIN LEVEL 7-10 Last administered on 03/29/19 02:11; Admin Dose 1 MG; Start 03/24/19 at 16:00 Oxycodone/ Acetaminophen (Percocet (5/ 325)) 1 tab Q6H PRN PO .SEVERE PAIN 7-10 Last administered on 03/25/19 23:24; Admin Dose 1 TAB; Start 03/24/19 at 15:00 Albuterol/ Ipratropium (Duoneb) 3 ml Q4H RESP THERAPY HHN Last administered on 03/29/19at 04:21; Admin Dose 3 ML; Start 03/26/19 at 16:30 Fluconazole (Diflucan) 200 mg DAILY PO Last administered on 03/28/19at 09:15; Admin Dose 200 MG; Start 03/27/19 at 11:30 Senna (Senokot) 1 tab BID PO Last administered on 03/28/19at 20:27; Admin Dose 1 TAB; Start 03/27/19 at 21:00 Docusate Sodium (Colace) 100 mg BID PRN PO CONSTIPATION; Start 03/27/19 at 15:30 Apixaban (Eliquis) 5 mg BID PO ; Start 03/29/19 at 09:00 JANETH LOGAN MD March 29, 2019 07:37
--- NOTE | 2019-03-29 08:27 | PN ---
DATE: 03/29/2019 SUBJECTIVE: The patient remains in serious condition on a simple facemask. No other acute events no [place] overnight. No hemoptysis, hematemesis, or hematochezia. OBJECTIVE: VITAL SIGNS: Blood pressure is 131/88, respirations 20, pulse 100, temperature 98.4. HEENT: Head is normocephalic. NECK: Supple. HEART: Regular rate. LUNGS: Show diminished breath sounds at the base. ABDOMEN: Soft, nontender to palpation without rebound or guarding. EXTREMITIES: Negative for clubbing, cyanosis, no edema. DERMATOLOGIC: No rashes. MUSCULOSKELETAL: No joint effusion. NEUROLOGIC: No change in exam. MEDICATIONS: Reviewed. LABORATORY DATA: Reviewed. ASSESSMENT AND PLAN: 1. Nonoliguric acute kidney injury with previous baseline creatinine of 1.16 mg/dL. Etiology of acu te kidney injury is secondary to hemodynamics. Renal function is improved. Continue to monitor. 2. Anemia. Monitor hemoglobin and hematocrit levels. 3. Mineral bone disorder, monitor calcium and phosphorus levels. 4. Hypernatremia, improved. 5. Acute hypoxemic respiratory failure secondary to pneumonia, septic emboli. Continue to monitor. Continue supplemental oxygen, facemask and antibiotics. 6. Endocarditis continue current antibiotic regimen. 7. [id number] myocardial infarction. Continue to monitor. 8. History of arrhythmia. 9. We will follow the patient as needed. Dictated By: ELSIE CHRISTENSEN DO NR/NTS Conf#: [id number] DID#: [id number] CC: ROBY MILLER MD; ROWAN OVALLE; BONIFACIO BANKS MD;*End*
[2019-03-29] MEDS: FLUCONAZOLE 200 MG TAB PO SCH (08:38)
[2019-03-29] MEDS: APIXABAN 5 MG TABLET PO SCH ×2 (08:38→20:30)
[2019-03-29] MEDS: SENNA TAB PO SCH ×2 (08:39→20:36)
[2019-03-29] MEDS: FUROSEMIDE 20 MG TAB PO SCH (08:39)
--- NOTE | 2019-03-29 09:29 | CONS ---
Assessment/Plan Assessment/Plan Assessment/Plan (Daily) Assessment and recommendations; next 1. 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 2. Pneumonia likely septic embolism to lungs. 3. Acute on chronic probably embolism, difficult to assess whether it is thromboembolic in etiology versus septic emboli to lungs. 4. Minimal hemoptysis. That should not be a contra indication to anticoagulation. Continue current supportive care. Agree with initiation of anti-coagulation. Consultation Date/Type/Reason Admit Date/Time March 17, 2019 at 15:13 Date of Consultation: March 29, 2019 Type of Consult Pulmonary Patient is a 28-year-old male who was admitted on the of this month with complaints of fever and chills after using intravenous methamphetamine prior to admission. Patient is been diagnosed with endocarditis and is currently on appropriate antimicrobial regimen. CT chest was done yesterday which is showing what appears to be acute on chronic right-sided pulmonary embolic disease. Patient is complaining very scant hemoptysis and according to him is feeling much better since admission. Denies any chest pain, compress very mild shortness of breath. Past medical history; 1. History of sternotomy with valve replacement. Likely tricuspid valve. 2. History of active intravenous drug use. Medications; reviewed. Allergies; none. Social history; positive for drug abuse. Family history; noncontributory. Occupational history; patient is on disability. Review of systems; denies any headache, seizures, visual changes. Any chest pain, complains of very minimal cough with very minimal hemoptysis. Denies any abdominal pain, nausea vomiting. Any fever chills. Any back pain. Any skin changes. Appears very minimal weight loss. Denies any melena hematochezia. General exam; young male, awake alert, currently no distress. Laying co mfortably in bed. Date/Time of Note DATE: 03/29/19 TIME: 09:26 Past Medical History Home Meds Reported Medications Aspirin* (Aspirin* EC) 81 Mg Tablet.dr, 81 MG PO DAILY, TAB TAKE 2 OR 3 TIMES A DAY 04/27/18 Medications Current Medications IV Flush (NS 3 ml) 3 ml PER PROTOCOL IV ; Start 03/17/19 at 15:00 Enoxaparin Sodium (Lovenox) 40 mg DAILY SC Last administered on 5/17/19at 08:19; Admin Dose 40 MG; Start 03/18/19 at 15:30; Status Hold Furosemide (Lasix) 20 mg DAILY PO Last administered on 03/29/19 08:39; Admin Dose 20 MG; Start 03/20/19 at 09:00 Ceftriaxone Sodium 50 ml @ 100 mls/hr Q24H IVPB Last administered on 03/28/19 12:20; Admin Dose 100 MLS/HR; Start 03/23/19 at 11:00 Guaifenesin/ Dextromethorphan (Robitussin Dm Liquid Cup) 5 ml Q4H PRN PO COUGH Last administered on 03/29/19 08:38; Admin Dose 5 ML; Start 03/23/19 at 22:00 Phenol (Cepastat Lozenge) 1 lozenge Q1H PRN MT COUGH Last administered on 03/29/19 02:10; Admin Dose 1 LOZENGE; Start 03/24/19 at 13:30 Morphine Sulfate (morphine) 1 mg Q4H PRN IV SEVERE PAIN LEVEL 7-10 Last administered on 03/29/19 08:39; Admin Dose 1 MG; Start 03/24/19 at 16:00 Oxycodone/ Acetaminophen (Percocet (5/ 325)) 1 tab Q6H PRN PO .SEVERE PAIN 7-10 Last administered on 03/25/19 23:24; Admin Dose 1 TAB; Start 03/24/19 at 15:00 Albuterol/ Ipratropium (Duoneb) 3 ml Q4H RESP THERAPY HHN Last administered on 03/29/19 04:21; Admin Dose 3 ML; Start 03/26/19 at 16:30 Fluconazole (Diflucan) 200 mg DAILY PO Last administered on 03/29/19 08:38; Admin Dose 200 MG; Start 03/27/19 at 11:30 Senna (Senokot) 1 tab BID PO Last administered on 03/28/19 20:27; Admin Dose 1 TAB; Start 03/27/19 at 21:00 Docusate Sodium (Colace) 100 mg BID PRN PO CONSTIPATION; Start 03/27/19 at 15:30 Apixaban (Eliquis) 5 mg BID PO Last administered on 03/29/19 08:38; Admin Dose 5 MG; Start 03/29/19 at 09:00 Allergies: Coded Allergies: No Known Allergy (Unverified , 05/18/18) Social History Alcohol Use: none Smoking Status: Current every day smoker Drug Use: none Exam/Review of Systems Exam Vitals Vital Signs Date Temp Pulse Resp B/P (MAP) Pulse Ox O2 O2 Flow FiO2 Time Delivery Rate 03/29/19 99 08:12 03/29/19 98.4 20 131/88 100 07:26 (102) 03/29/19 6.0 01:43 03/29/19 Simple 01:43 Mask Intake and Output 03/28/19 03/28/19 03/29/19 1515:00 23:00 07:00 IntakeIntake Total 50 ml 2500 ml 2300 ml OutputOutput Total 2000 ml 2500 ml BalanceBalance 50 ml 500 ml -200 ml Exam H EENT exam; supple neck, no JVD. No lymphadenopathy. Midline trachea. No thyromegaly. Patient has fair dentition. No neck masses. Chest exam; diminished but clear breath sounds. S1-S2 audible, no murmurs. There is a well-healed sternal scar. Abdomen exam; soft, nontender. No organomegaly. Bowel sounds are audible. Extremity exam; no peripheral edema clubbing. Patient does have multiple skin pockmarks. [employer] exam; no focal deficit. Results Result Diagram: 03/29/19 0539 03/29/19 0539 Results 24hrs Laboratory Tests Test 03/29/19 05:39 03/29/19 05:40 White Blood Count 12.0 H Red Blood Count 3.83 L Hemoglobin 10.1 L Hematocrit 31.2 L Mean Corpuscular Volume 81.5 L Mean Corpuscular Hemoglobin 26.4 L Mean Corpuscular Hemoglobin Concent 32.4 Red Cell Distribution Width 15.0 H Platelet Count 306 Mean Platelet Volume 9.3 Immature Granulocytes % 0.700 H Neutrophils % 75.7 Lymphocytes % 14.9 L Monocytes % 5.9 Eosinophils % 2.2 Basophils % 0.6 Nucleated Red Blood Cells % 0.0 Immature Granulocytes # 0.080 H Neutrophils # 9.1 H Lymphocytes # 1.8 Monocytes # 0.7 Eosinophils # 0.3 Basophils # 0.1 Nucleated Red Blood Cells # 0.0 Sodium Level 135 Potassium Level 4.0 Chloride Level 100 Carbon Dioxide Level 28 Anion Gap 7 Blood Urea Nitrogen 18 Creatinine 1.05 Est Glomerular Filtrat Rate mL/min > 60 Glucose Level 107 Calcium Level 8.5 Phosphorus Level 4.6 Magnesium Level 1.8 Medications Medication Current Medications IV Flush (NS 3 ml) 3 ml PER PROTOCOL IV ; Start 03/17/19 at 15:00 Enoxaparin Sodium (Lovenox) 40 mg DAILY SC Last administered on 03/21/19 08:19; Admin Dose 40 MG; Start 03/18/19 at 15:30; Status Hold Furosemide (Lasix) 20 mg DAILY PO Last administered on 03/29/19 08:39; Admin Dose 20 MG; Start 03/20/19 at 09:00 Ceftriaxone Sodium 50 ml @ 100 mls/hr Q24H IVPB Last administered on 03/28/19 12:20; Admin Dose 100 MLS/HR; Start 03/23/19 at 11:00 Guaifenesin/ Dextromethorphan (Robitussin Dm Liquid Cup) 5 ml Q4H PRN PO COUGH Last administered on 03/29/19 08:38; Admin Dose 5 ML; Start 03/23/19 at 22:00 Phenol (Cepastat Lozenge) 1 lozenge Q1H PRN MT COUGH Last administered on 03/29/19 02:10; Admin Dose 1 LOZENGE; Start 03/24/19 at 13:30 Morphine Sulfate (morphine) 1 mg Q4H PRN IV SEVERE PAIN LEVEL 7-10 Last administered on 03/29/19 08:39; Admin Dose 1 MG; Start 03/24/19 at 16:00 Oxycodone/ Acetaminophen (Percocet (5/ 325)) 1 tab Q6H PRN PO .SEVERE PAIN 7-10 Last administered on 03/25/19 23:24; Admin Dose 1 TAB; Start 03/24/19 at 15:00 Albuterol/ Ipratropium (Duoneb) 3 ml Q4H RESP THERAPY HHN Last administered on 03/29/19 04:21; Admin Dose 3 ML; Start 03/26/19 at 16:30 Fluconazole (Diflucan) 200 mg DAILY PO Last administered on 03/29/19 08:38; Admin Dose 200 MG; Start 03/27/19 at 11:30 Senna (Senokot) 1 tab BID PO Last administered on 03/28/19at 20:27; Admin Dose 1 TAB; Start 03/27/19 at 21:00 Docusate Sodium (Colace) 100 mg BID PRN PO CONSTIPATION; Start 03/27/19 at 15:30 Apixaban (Eliquis) 5 mg BID PO Last administered on 03/29/19at 08:38; Admin Dose 5 MG; Start 03/29/19 at 09:00 CARLOS TRIVEDI March 29, 2019 09:29
[2019-03-29] MEDS: CEFTRIAXONE 2 GM/50 ML (PMX) 50 ML IVPB SCH (11:56)
--- NOTE | 2019-03-29 12:43 | PN ---
Date/Time of Note Date/Time of Note DATE: 03/29/19 TIME: 12:37 Assessment/Plan VTE Prophylaxis Risk score (from Ns)>0 risk: 2 SCD applied (from Ns): No SCD contraindicated: other Pharmacological prophylaxis: apixaban Lines/Catheters IV C[facility]ter [facility]from [facility]): Mid Line Urinary Cath still in place: No Assessment/Plan Hospital Course S: Patient had CTA performed yesterday with multiple emboli noted. Seen by infectious disease and pulmonary teams today. Waiting to be seen by hematology oncology teams. Per nursing staff with no present hemoptysis today, back on full dose anticoagulation with Eliquis now. O: VS - see below EXAM: Lying in bed, wearing simple mask PERRL, EOMI Supple Slightly distant breath sounds bilaterally S1, S2 heard PPM No edema CTA chest March 28, 2019 iMPRESSION: 1. Complete occlusion of the left lower lobe pulmonary artery. 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 Interval new thrombus and complete occlusion of the left upper lobe pulmonary artery. 2. New multifocal peripheral consolidations in the left apex, suspicious for pulmonary infarcts given the new occlusion of the left upper lobe pulmonary. 3. New increased prevascular adenopathy measuring up to 34 mm. Prominent hilar adenopathy bilaterally measuring up to 18 mm in short axis diameter. Partially cavitary nodules in the right upper lobe and right middle lobe, as discussed above. 4. Decrease in diffuse ground-glass and consolidation of the left lower lobe with residual centrilobular ground-glass densities and scarring. Decreased consolidation in the right lower lobe with scarring, traction bronchiectasis and cystic change. Given the combined findings of mediastinal and hilar soft tissue/adenopathy, pulmonary artery occlusions, multifocal consolidations and cavitary nodules, differential considerations include Behcet's disease, vasculitides including Luis's granulomatosis, alveolar sarcoidosis, and infectious etiologies including septic emboli, fungal and mycobacterial etiologies depending on patient's compromised immune status and degree of immunosuppression. 5. Mild increased right pleural effusion. 6. Mild cardiomegaly with relative enlargement of the right atrial chamber. 7. Status post left-sided pacer with dual chamber leads. 8. Borderline splenomegaly. A/P: 28 yo male with h/o valve replacements and PPM following endocarditis in 2017 (specifics unclear) who presented with fever, tachypnea, and hypoxia with pulmonary infiltrates following IV meth use, with positive endocarditis again. 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 Repeat cultures negative to date. -Per ID team continue 2 g ceftriaxone (until May 04) and levaquin (until March 28) for now. -cultures per ID recs # Acute hypoxic respiratory failure with fever/sepsis- 2/2 pneumonia and likely septic embolus as seen on CTA performed both earlier this admission, and again in fact even worse on repeat CTA chest yesterday. Of note, patient in January 2019 was diagnosed with pulmonary embolism and was sent home with Eliquis at that time, unclear he has been compliant with this at home however. - Continue abx per Dr Hastings, they are also checking antiphospholipid antibody to rule out potential hypercoagulable state because of his emboli. Other consideration is patient could be having tricuspid valve endocarditis causing this -Received Lovenox 80 mg x 1 yesterday, back on Eliquis 5 mg twice daily continue for now and follow-up further ID, pulmonary, and hematology oncology recommendations - Monitor, continue O2 as needed - Continue antitussives as needed for cough # CLAUDIA: Resolving now -Monitor, follow-up renal recommendations # H/o valve replacements and PPM-presently appears stable -Monitor Dispo: As mentioned above will need antibiotics for the dates listed. If patient can be transitioned to oral p.o. antibiotics, ID team recommends close follow-up at preferably in ID clinic, case worker is working on clinic options for this, as well as SNF placement if patient can preferably get that. Result Diagram: 03/29/19 0539 03/29/19 0539 Results 24hrs Laboratory Tests Test 03/29/19 05:39 03/29/19 05:40 White Blood Count 12.0 H Red Blood Count 3.83 L Hemoglobin 10.1 L Hematocrit 31.2 L Mean Corpuscular Volume 81.5 L Mean Corpuscular Hemoglobin 26.4 L Mean Corpuscular Hemoglobin Concent 32.4 Red Cell Distribution Width 15.0 H Platelet Count 306 Mean Platelet Volume 9.3 Immature Granulocytes % 0.700 H Neutrophils % 75.7 Lymphocytes % 14.9 L Monocytes % 5.9 Eosinophils % 2.2 Basophils % 0.6 Nucleated Red Blood Cells % 0.0 Immature Granulocytes # 0.080 H Neutrophils # 9.1 H Lymphocytes # 1.8 Monocytes # 0.7 Eosinophils # 0.3 Basophils # 0.1 Nucleated Red Blood Cells # 0.0 Sodium Level 135 Potassium Level 4.0 Chloride Level 100 Carbon Dioxide Level 28 Anion Gap 7 Blood Urea Nitrogen 18 Creatinine 1.05 Est Glomerular Filtrat Rate mL/min > 60 Glucose Level 107 Calcium Level 8.5 Phosphorus Level 4.6 Magnesium Level 1.8 Exam/Review of Systems Exam Vitals Vital Signs Date Temp Pulse Resp B/P (MAP) Pulse Ox O2 O2 Flow FiO2 Time Delivery Rate 03/29/19 94 12:07 03/29/19 97.8 20 120/83 97 11:18 (95) 03/29/19 Simple 8.0 08:38 Mask Intake and Output 03/28/19 03/28/19 03/29/19 1515:00 23:00 07:00 IntakeIntake Total 50 ml 2500 ml 2300 ml OutputOutput Total 2000 ml 2500 ml BalanceBalance 50 ml 500 ml -200 ml Results Results 24hrs Laboratory Tests Test 03/29/19 05:39 03/29/19 05:40 White Blood Count 12.0 H Red Blood Count 3.83 L Hemoglobin 10.1 L Hematocrit 31.2 L Mean Corpuscular Volume 81.5 L Mean Corpuscular Hemoglobin 26.4 L Mean Corpuscular Hemoglobin Concent 32.4 Red Cell Distribution Width 15.0 H Platelet Count 306 Mean Platelet Volume 9.3 Immature Granulocytes % 0.700 H Neutrophils % 75.7 Lymphocytes % 14.9 L Monocytes % 5.9 Eosinophils % 2.2 Basophils % 0.6 Nucleated Red Blood Cells % 0.0 Immature Granulocytes # 0.080 H Neutrophils # 9.1 H Lymphocytes # 1.8 Monocytes # 0.7 Eosinophils # 0.3 Basophils # 0.1 Nucleated Red Blood Cells # 0.0 Sodium Level 135 Potassium Level 4.0 Chloride Level 100 Carbon Dioxide Level 28 Anion Gap 7 Blood Urea Nitrogen 18 Creatinine 1.05 Est Glomerular Filtrat Rate mL/min > 60 Glucose Level 107 Calcium Level 8.5 Phosphorus Level 4.6 Magnesium Level 1.8 Medications Medication Current Medications IV Flush (NS 3 ml) 3 ml PER PROTOCOL IV ; Start 03/17/19 at 15:00 Enoxaparin Sodium (Lovenox) 40 mg DAILY SC Last administered on 03/21/19at 08:19; Admin Dose 40 MG; Start 03/18/19 at 15:30; Status Hold Furosemide (Lasix) 20 mg DAILY PO Last administered on 03/29/19 08:39; Admin Dose 20 MG; Start 03/20/19 at 09:00 Ceftriaxone Sodium 50 ml @ 100 mls/hr Q24H IVPB Last administered on 03/29/19 11:56; Admin Dose 100 MLS/HR; Start 03/23/19 at 11:00 Guaifenesin/ Dextromethorphan (Robitussin Dm Liquid Cup) 5 ml Q4H PRN PO COUGH Last administered on 03/29/19 08:38; Admin Dose 5 ML; Start 03/23/19 at 22:00 Phenol (Cepastat Lozenge) 1 lozenge Q1H PRN MT COUGH Last administered on 03/29/19 02:10; Admin Dose 1 LOZENGE; Start 03/24/19 at 13:30 Morphine Sulfate (morphine) 1 mg Q4H PRN IV SEVERE PAIN LEVEL 7-10 Last administered on 03/29/19 08:39; Admin Dose 1 MG; Start 03/24/19 at 16:00 Oxycodone/ Acetaminophen (Percocet (5/ 325)) 1 tab Q6H PRN PO .SEVERE PAIN 7-10 Last administered on 03/25/19 23:24; Admin Dose 1 TAB; Start 03/24/19 at 15:00 Albuterol/ Ipratropium (Duoneb) 3 ml Q4H RESP THERAPY HHN Last administered on 03/29/19 04:21; Admin Dose 3 ML; Start 03/26/19 at 16:30 Fluconazole (Diflucan) 200 mg DAILY PO Last administered on 03/29/19 08:38; Admin Dose 200 MG; Start 03/27/19 at 11:30 Senna (Senokot) 1 tab BID PO Last administered on 03/28/19 20:27; Admin Dose 1 TAB; Start 03/27/19 at 21:00 Docusate Sodium (Colace) 100 mg BID PRN PO CONSTIPATION; Start 03/27/19 at 15:30 Apixaban (Eliquis) 5 mg BID PO Last administered on 03/29/19 08:38; Admin Dose 5 MG; Start 03/29/19 at 09:00 ORWAN OVALLE March 29, 2019 12:43
[2019-03-29] MEDS: OXYCODONE/ACETAMINOPHEN (5/325) TAB PO PRN (20:31)
--- NOTE | 2019-03-29 22:21 | CONS ---
DATE OF ADMISSION: 03/17/2019 DATE OF CONSULTATION: REASON FOR CONSULTATION: Thrombophilia. ATTENDING PHYSICIAN: Willie Welch MD. HISTORY OF PRESENT ILLNESS: The patient is a 28-year-old man with a history of intravenous drug abus e, admitted for fever, tachypnea and hypoxia with pulmonary infiltrates noted after recent drug use. The patient on CT pulmonary angiogram was noted to have a filling defect with occlusion of the left lower lobe pulmonary artery as well as chronic occlusion of the right lower lobe pulmonary artery and a complete occlusion of the left upper lobe pulmonary artery. All of this despite previous IVC filt er and today's lower extremity ultrasound showing no evidence of deep vein thrombosis bilaterally. T he patient is currently lethargic, unable to give any detail of history and therefore, history was ob tained through careful review of the medical chart. PAST MEDICAL HISTORY: As noted above. PAST SURGICAL HISTORY: Includes valve replacement. ALLERGIES: THE PATIENT HAS NO KNOWN DRUG ALLERGIES. MEDICATIONS: Per the reconciliation. FAMILY HISTORY: Negative for any malignancy. SOCIAL HISTORY: The patient has history of tobacco abuse, alcohol abuse and intravenous drug abuse. REVIEW OF SYSTEMS: Unobtainable at this time. PHYSICAL EXAMINATION: VITAL SIGNS: Afebrile, temperature 97.9, heart rate 92, blood pressure 117/74, respiratory rate of 1 8. GENERAL: The patient is a chronically ill-appearing man, somnolent, in no respiratory distress. HEENT: Throat examination shows pupils equal, round, reactive to light. Extraocular movements intac t with anicteric sclerae. Moist mucous membranes. NECK: Trachea midline with no bruits bilaterally. CHEST: Clear to auscultation bilaterally. No wheezes, rubs or crackles. CARDIAC: Regular rate, normal S1 and S2 with no murmurs. LUNGS: Decreased breath sounds bibasilar. ABDOMEN: Soft, nontender, nondistended. EXTREMITIES: Shows clubbing, cyanosis, or edema. LABORATORY DATA: White blood cell count of 12, hemoglobin 10.1, MCV of 81, platelet count of 306, BU N is 18, creatinine of 1. ASSESSMENT AND PLAN: A 28-year-old man with history of intravenous drug abuse, now noted to have pul monary emboli. 2. Pulmonary emboli. The patient has since been started on anticoagulation and deep vein thrombosis examinations have been negative. Therefore, in consideration of ongoing emboli despite placement of IVC filter, there can be several possibilities either, one, this is actually a new formation of pulm onary embolus with possible valve embolism, but per cardiology, there is no obvious evidence of throm bosis. Other consideration might be that of thrombosis of the IVC filter itself but in regards to hi s lower extremities, no swelling that would be suggestive of this. In discussion with radiology, CT scan of abdomen and pelvis with IV contrast would be best to evaluate this possibility. Otherwise, w ould continue with anticoagulation. 3. Thrombophilia. The patient will be further evaluated with antiphospholipid syndrome and activate d protein C resistance. 4. Intravenous drug abuse. Currently, the patient is somnolent without any obvious evidence of with drawal. We will continue to follow with supportive care as needed. Thank you very much, Dr. Welch, for allowing me to participate in the care of this patient. We will c ontinue to follow the patient with you. Dictated By: INA SCHAEFER MD CH/NTS Conf#: [id number] DID#: [id number] CC: ROBY MILLER MD;*EndCC*
[2019-03-30] VITALS (12 sets, daily range): BP systolic 115–154; BP diastolic 65–88; PULSE 80–112; RESP 18–20
[2019-03-30] MEDS: ALBUTEROL/IPRATROPIUM (NEB) 3 ML AMP HHN SCH ×6 (01:49→19:36)
[2019-03-30] MEDS: morphine 2 MG INJ IV PRN ×5 (04:12→20:59)
[2019-03-30] MEDS: GUAIFENESIN/DM 5ML CUP PO PRN ×4 (04:12→16:43)
--- NOTE | 2019-03-30 07:45 | CONS ---
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 usual suspect in IVDA is staph or strep but pseudomonas and benjamin can also be seen continue with vanco/zosyn at present fevers have improved and WBC is improved today I will order WBC scan as pt c/o pain over the pacer site I will also order u/s of pacer site to see if there is fluid present 03/20 - GPC growing in all 3 sets of blood cx from 03/17, await ID MRSA in nasal continue with vanco/zosyn pt was seen in this hospital last month under a different MRN and he was evaluated for endocarditis at that time he had corynebacterium in two different sets of blood cx and had a MADINA which was neg for vegetations he was give two weeks of ceftriaxone for pneumonia, they also wondered if he had septic emboli or PE at that time he got an IVC filter but were planning to remove it because he did not have a PE but he left AMA u/s of around pacer site was neg for fluid collection WBC scan is pending 03/21 - WBC scan only has activity in the lung s.aureus is in the blood repeat blood cx on 03/18 are NGTD, repeat again continue with vanco, d/c zosyn 03/24- MSSA in blood, vanco stopped yesterday and switched to ceftriaxone 2gm q24 hours repeat blood cx all remain NGTD 03/25 - low grade temp noted, to repeat CXR procalcitonin was greatly improved but will repeat in a.m. continue with just ceftriaxone, all repeat blood cx are NGTD 03/26 - procalcitonin is pending but CXR from yesterday was slightly improved WBC is still elevated and higher today, clinically pt is much improved I saw that in january he had a marginal positive IgM cocci titer, to repeat this if procalcitonin is higher to broaden pulmonary coverage 03/27 - procalcitonin continues to improve, doubt he has pneumonia failing current therapy await repeat cocci titers to repeat blood cx again x1 03/28 - stable 03/29 - repeat blood cx remain neg continue with ceftriaxone 03/30 - WBC has normalized since back on anti-coagulation day of ceftriaxone 2) IVDA pt states he was tested in the last 1-2 months and was neg for HIV and he does not share his needles no hx of hepatitis either I will check into his prior hospitalization here that if it exists is under another MR# / - pt has another MRN and his HIV was neg in february he had corynebacterium in two different sets of blood cx then 3) pulmonary infiltrates PACS system is not working on two different computers, I need to see his CT's and CXR to see if these are c/w septic emboli or not vanco/zosyn should cover if he has pneumonia rather than septic emboli procalcitonin has been ordered also 03/20 - his prior chest CT last month shows that he has waxing and waning of pulmonary infiltrates and his cavitary lesions have improved slightly his pulmonary infiltrates are patchy and somewhat large which would be atypical for septic emboli his procalcitonin is very high but bacteremia will also elevated it continue with vanco/zosyn will check for atypical organisms with serology 03/21 - pt is able to bring up some phlegm will order cx s.aureus is likely the culprit continue with vanco, d/c zosyn but add levaquin for atypical coverage 03/24 - sputum cx has c.alb only continue with levaquin and ceftriaxone, legionella was neg 03/25 - mycoplasma IgG was elevated but no IgM sent and at this time results would be back after he has finished his levaquin day 03/11 of levaquin 03/26 - day 6/ of levaquin CXR is improved check cocci titers since he had an equivocal IgM titer in january 201903/27 - today is last day of his oral levaquin await cocci titers 03/29 - pt has new areas of probable septic emboli pt had his lovenox stopped and is now re-started cause of new septic emboli are either due to ongoing infection of TV, which would indicate he needs surgery or due to a hypercoagulable state and in SBE the development of APLA can occur so will order this test in a.m. I will also repeat LE venous dopplers (pt already has an IVC filter in 03/30 - venous dopplers to UE and LE were negative no swelling of legs WBC has normalized since anti-coagulation was started await repeat 2d echo 4) ARF 03/21 this is improving 03/24 - resolved 5) leukocytosis 03/26 - pt is clinically improved one of his legs is slightly swollen but not tender and he had a neg LE venous doppler on 03/17 no diarrhea, so c.dif is unlikely no urinary c/o but will repeat u/a and urine cx will check cocci titers since pt had an equivocal IgM titer in january 2019 check RPR pt had a neg HIV test in january 2019 and HIV would not be cause of leukocytosis 03/27 - increasing alk phos, but pt is asymptomatic, will order RUQ u/s increasing WBC but decreasing procalcitonin, repeat both in a.m. 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 Consultation Date/Type/Reason Admit Date/Time March 17, 2019 at 15:13 Initial Consult Date 03/19/19 Type of Consult ID Requesting Provider: ROBY MILLER MD Date/Time of Note DATE: 03/30/19 TIME: 07:36 24 HR Interval Summary Free Text/Dictation spoke to nurse no N, V still has CP and gets MS occasional blood tinged sputum eating well Exam/Review of Systems Exam Vitals Vital Signs Date Temp Pulse Resp B/P (MAP) Pulse Ox O2 O2 Flow FiO2 Time Delivery Rate 03/30/19 91 19 98 Simple 8.0 04:53 Mask 03/30/19 98.2 126/71 04:32 (89) Intake and Output 03/29/19 03/29/19 03/30/19 1515:00 23:00 07:00 IntakeIntake Total 1000 ml OutputOutput Total 1500 ml BalanceBalance -500 ml Exam asleep Respiratory: clear to auscultation Cardiovascular: regular rate and rhythm Gastrointestinal: soft, non-tender Results Result Diagram: 03/30/19 0537 03/30/19 0537 Results 24hrs Laboratory Tests Test 03/30/19 05:37 White Blood Count 9.6 Red Blood Count 3.52 L Hemoglobin 9.3 L Hematocrit 29.4 L Mean Corpuscular Volume 83.5 Mean Corpuscular Hemoglobin 26.4 L Mean Corpuscular Hemoglobin Concent 31.6 L Red Cell Distribution Width 14.9 H Platelet Count 307 Mean Platelet Volume 9.4 Immature Granulocytes % 0.600 H Neutrophils % 72.4 Lymphocytes % 15.6 Monocytes % 6.3 Eosinophils % 4.5 Basophils % 0.6 Nucleated Red Blood Cells % 0.0 Immature Granulocytes # 0.060 H Neutrophils # 7.0 Lymphocytes # 1.5 Monocytes # 0.6 Eosinophils # 0.4 Basophils # 0.1 Nucleated Red Blood Cells # 0.0 Sodium Level 136 Potassium Level 3.7 Chloride Level 101 Carbon Dioxide Level 28 Anion Gap 7 Blood Urea Nitrogen 18 Creatinine 1.01 Est Glomerular Filtrat Rate mL/min > 60 Glucose Level 142 Calcium Level 8.3 L Medications Medication Current Medications IV Flush (NS 3 ml) 3 ml PER PROTOCOL IV ; Start 03/17/19 at 15:00 Enoxaparin Sodium (Lovenox) 40 mg DAILY SC Last administered on 03/21/19 08:19; Admin Dose 40 MG; Start 03/18/19 at 15:30; Status Hold Furosemide (Lasix) 20 mg DAILY PO Last administered on 03/29/19 08:39; Admin Dose 20 MG; Start 03/20/19 at 09:00 Ceftriaxone Sodium 50 ml @ 100 mls/hr Q24H IVPB Last administered on 03/29/19 11:56; Admin Dose 100 MLS/HR; Start 03/23/19 at 11:00 Guaifenesin/ Dextromethorphan (Robitussin Dm Liquid Cup) 5 ml Q4H PRN PO COUGH Last administered on 03/30/19 04:12; Admin Dose 5 ML; Start 03/23/19 at 22:00 Phenol (Cepastat Lozenge) 1 lozenge Q1H PRN MT COUGH Last administered on 03/29/19 02:10; Admin Dose 1 LOZENGE; Start 03/24/19 at 13:30 Morphine Sulfate (morphine) 1 mg Q4H PRN IV SEVERE PAIN LEVEL 7-10 Last administered on 03/30/19 04:12; Admin Dose 1 MG; Start 03/24/19 at 16:00 Oxycodone/ Acetaminophen (Percocet (5/ 325)) 1 tab Q6H PRN PO .SEVERE PAIN 7-10 Last administered on 5/25/19at 20:31; Admin Dose 1 TAB; Start 03/24/19 at 15:00 Albuterol/ Ipratropium (Duoneb) 3 ml Q4H RESP THERAPY HHN Last administered on 03/30/19at 04:53; Admin Dose 3 ML; Start 03/26/19 at 16:30 Fluconazole (Diflucan) 200 mg DAILY PO Last administered on 03/29/19at 08:38; Admin Dose 200 MG; Start 03/27/19 at 11:30 Senna (Senokot) 1 tab BID PO Last administered on 03/28/19at 20:27; Admin Dose 1 TAB; Start 03/27/19 at 21:00 Docusate Sodium (Colace) 100 mg BID PRN PO CONSTIPATION; Start 03/27/19 at 15:30 Apixaban (Eliquis) 5 mg BID PO Last administered on 03/29/19at 20:30; Admin Dose 5 MG; Start 03/29/19 at 09:00 JANETH LOGAN MD March 30, 2019 07:45
[2019-03-30] MEDS: FLUCONAZOLE 200 MG TAB PO SCH (08:19)
[2019-03-30] MEDS: SENNA TAB PO SCH ×2 (08:19→20:11)
[2019-03-30] MEDS: APIXABAN 5 MG TABLET PO SCH ×2 (08:19→20:11)
[2019-03-30] MEDS: FUROSEMIDE 20 MG TAB PO SCH (08:19)
--- NOTE | 2019-03-30 09:59 | CONS ---
Assessment/Plan Assessment/Plan Assessment/Plan (Daily) Assessment and recommendations; 1. 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 2. History of tricuspid valve replacement. 3. Bilateral pneumonia, likely septic embolism to lungs. 4. Pulmonary embolism possibly thromboembolic versus vegetation. 5. Mild hemoptysis with interval resolution. Continue with supportive care. Continue anticoagulation. Consultation Date/Type/Reason Admit Date/Time March 17, 2019 at 15:13 Initial Consult Date 03/29/19 Type of Consult Pulmonary Patient is a 28-year-old male who was admitted on the of this month with complaints of fever and chills after using intravenous methamphetamine prior to admission. Patient is been diagnosed with endocarditis and is currently on appropriate antimicrobial regimen. CT chest was done yesterday which is showing what appears to be acute on chronic right-sided pulmonary embolic disease. Patient is complaining very scant hemoptysis and according to him is feeling much better since admission. Denies any chest pain, compress very mild shortness of breath. Past medical history; 1. History of sternotomy with valve replacement. Likely tricuspid valve. 2. History of active intravenous drug use. Medications; reviewed. Allergies; none. Social history; positive for drug abuse. Family history; noncontributory. Occupational history; patient is on disability. Review of systems; denies any headache, seizures, visual changes. Any chest pain, complains of very minimal cough with very minimal hemoptysis. Denies any abdominal pain, nausea vomiting. Any fever chills. Any back pain. Any skin changes. Appears very minimal weight loss. Denies any melena hematochezia. General exam; young male, awake alert, currently no distress. Laying comfortably in bed. Requesting Provider: ROBY MILLER MD Date/Time of Note DATE: 03/30/19 TIME: 09:57 24 HR Interval Summary Free Text/Dictation Patient's condition is stable. Remains awake and alert. Denies any shortness of breath, cough, denies any further hemoptysis. General exam; young male, awake alert, currently in no distress. Exam/Review of Systems Exam Vitals Vital Signs Date Temp Pulse Resp B/P (MAP) Pulse Ox O2 O2 Flow FiO2 Time Delivery Rate 03/30/19 85 18 98 Simple 6.0 08:45 Mask 03/30/19 97.7 119/86 07:50 (97) Intake and Output 03/29/19 03/29/19 03/30/19 1515:00 23:00 07:00 IntakeIntake Total 1000 ml OutputOutput Total 1500 ml BalanceBalance -500 ml Exam HEENT exam; supple neck, no JVD. No lymphadenopathy. Midline trachea. No thyromegaly. Pharynx is clear. Patient has fair dentition. No neck masses. Chest exam; diminished breath sounds bilaterally. There is a well-healed sternal scar. S1-S2 audible, no murmurs. Regular rhythm. Abdomen exam; soft, nontender. No organomegaly. Bowel sounds audible. Extremity exam; peripheral edema. Patient does have multiple skin pockmarks. 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 Results Result Diagram: 03/30/1953603/30/19 0537 Results 24hrs Laboratory Tests Test 03/30/19 05:37 White Blood Count 9.6 Red Blood Count 3.52 L Hemoglobin 9.3 L Hematocrit 29.4 L Mean Corpuscular Volume 83.5 Mean Corpuscular Hemoglobin 26.4 L Mean Corpuscular Hemoglobin Concent 31.6 L Red Cell Distribution Width 14.9 H Platelet Count 307 Mean Platelet Volume 9.4 Immature Granulocytes % 0.600 H Neutrophils % 72.4 Lymphocytes % 15.6 Monocytes % 6.3 Eosinophils % 4.5 Basophils % 0.6 Nucleated Red Blood Cells % 0.0 Immature Granulocytes # 0.060 H Neutrophils # 7.0 Lymphocytes # 1.5 Monocytes # 0.6 Eosinophils # 0.4 Basophils # 0.1 Nucleated Red Blood Cells # 0.0 Sodium Level 136 Potassium Level 3.7 Chloride Level 101 Carbon Dioxide Level 28 Anion Gap 7 Blood Urea Nitrogen 18 Creatinine 1.01 Est Glomerular Filtrat Rate mL/min > 60 Glucose Level 142 Calcium Level 8.3 L Medications Medication Current Medications IV Flush (NS 3 ml) 3 ml PER PROTOCOL IV ; Start 03/17/19 at 15:00 Enoxaparin Sodium (Lovenox) 40 mg DAILY SC Last administered on 03/21/19at 08:19; Admin Dose 40 MG; Start 03/18/19 at 15:30; Status Hold Furosemide (Lasix) 20 mg DAILY PO Last administered on 03/30/19at 08:19; Admin Dose 20 MG; Start 03/20/19 at 09:00 Ceftriaxone Sodium 50 ml @ 100 mls/hr Q24H IVPB Last administered on 03/29/19 11:56; Admin Dose 100 MLS/HR; Start 03/23/19 at 11:00 Guaifenesin/ Dextromethorphan (Robitussin Dm Liquid Cup) 5 ml Q4H PRN PO COUGH Last administered on 03/30/19 08:26; Admin Dose 5 ML; Start 03/23/19 at 22:00 Phenol (Cepastat Lozenge) 1 lozenge Q1H PRN MT COUGH Last administered on 03/29/19 02:10; Admin Dose 1 LOZENGE; Start 03/24/19 at 13:30 Morphine Sulfate (morphine) 1 mg Q4H PRN IV SEVERE PAIN LEVEL 7-10 Last admin istered on 03/30/19 08:27; Admin Dose 1 MG; Start 03/24/19 at 16:00 Oxycodone/ Acetaminophen (Percocet (5/ 325)) 1 tab Q6H PRN PO .SEVERE PAIN 7-10 Last administered on 03/29/19 20:31; Admin Dose 1 TAB; Start 03/24/19 at 15:00 Albuterol/ Ipratropium (Duoneb) 3 ml Q4H RESP THERAPY HHN Last administered on 03/30/19 08:45; Admin Dose 3 ML; Start 03/26/19 at 16:30 Fluconazole (Diflucan) 200 mg DAILY PO Last administered on 03/30/19 08:19; Admin Dose 200 MG; Start 03/27/19 at 11:30 Senna (Senokot) 1 tab BID PO Last administered on 03/30/19 08:19; Admin Dose 1 TAB; Start 03/27/19 at 21:00 Docusate Sodium (Colace) 100 mg BID PRN PO CONSTIPATION; Start 03/27/19 at 15:30 Apixaban (Eliquis) 5 mg BID PO Last administered on 03/30/19 08:19; Admin Dose 5 MG; Start 03/29/19 at 09:00 Iohexol ((Gastrografin therapeutic equivalent)) 900 [address] ONCE PO ; Start 03/30/19 at 11:00; Stop 03/30/19 at 11:01 CARLOS TRIVEDI March 30, 2019 09:59
--- NOTE | 2019-03-30 10:32 | PN ---
Date/Time of Note Date/Time of Note DATE: 03/30/19 TIME: 10:25 Assessment/Plan VTE Prophylaxis Risk score (from Ns)>0 risk: 2 SCD applied (from Ns): No SCD contraindicated: other Pharmacological prophylaxis: apixaban Lines/Catheters [facility] Saline Lock Urinary Cath still in place: No Assessment/Plan Hospital Course S: Patient had no acute events overnight. Seen by hematology oncology team yesterday, and by ID and pulmonary teams this morning. Now waiting for CT scan abdomen pelvis. O: VS - see below EXAM: Lying in bed, NAD PERRL, EOMI Supple Slightly distant breath sounds bilaterally S1, S2 heard PPM No edema CTA chest March 28, 2019 iMPRESSION: 1. Complete occlusion of the left lower lobe pulmonary artery. 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 Interval new thrombus and complete occlusion of the left upper lobe pulmonary artery. 2. New multifocal peripheral consolidations in the left apex, suspicious for pulmonary infarcts given the new occlusion of the left upper lobe pulmonary. 3. New increased prevascular adenopathy measuring up to 34 mm. Prominent hilar adenopathy bilaterally measuring up to 18 mm in short axis diameter. Partially cavitary nodules in the right upper lobe and right middle lobe, as discussed above. 4. Decrease in diffuse ground-glass and consolidation of the left lower lobe with residual centrilobular ground-glass densities and scarring. Decreased consolidation in the right lower lobe with scarring, traction bronchiectasis and cystic change. Given the combined findings of mediastinal and hilar soft tissue/adenopathy, pulmonary artery occlusions, multifocal consolidations and cavitary nodules, differential considerations include Behcet's disease, vasculitides including Luis's granulomatosis, alveolar sarcoidosis, and infectious etiologies including septic emboli, fungal and mycobacterial etiologies depending on patient's compromised immune status and degree of immunosuppression. 5. Mild increased right pleural effusion. 6. Mild cardiomegaly with relative enlargement of the right atrial chamber. 7. Status post left-sided pacer with dual chamber leads. 8. Borderline splenomegaly. A/P: 28 yo male with h/o valve replacements and PPM following endocarditis in 2017 (specifics unclear) who presented with fever, tachypnea, and hypoxia with pulmonary infiltrates following IV meth use, with positive endocarditis again. 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 Repeat cultures negative to date. -Per ID team continue 2 g ceftriaxone (until May 04) and levaquin (until March 28) for now. -cultures per ID recs # Acute hypoxic respiratory failure with fever/sepsis- 2/2 pneumonia and likely septic embolus as seen on CTA performed both earlier this admission, and again in fact even worse on repeat CTA chest performed 2 days ago. Of note, patient in January 2019 was diagnosed with pulmonary embolism and was sent home with Eliquis at that time, unclear he has been compliant with this at home however. - Continue abx per Dr Hastings, they are also checking antiphospholipid antibody to rule out potential hypercoagulable state because of his emboli. Also check a protein C. Other consideration is patient could be tricuspid valve endocarditis etiology -Continue Eliquis 5 mg twice daily, follow-up further ID, pulmonary, and hematology oncology recommendations -hematology oncology team is recommending CT abdomen pelvis with IV contrast for further evaluation of the IVC filter and other anatomy for possible embolism source. - Monitor, continue O2 as needed - Continue antitussives as needed for cough # CLAUDIA: Resolving now -Monitor, follow-up renal recommendations # H/o valve replacements and PPM-presently appears stable -Monitor Dispo: As mentioned above will need antibiotics for the dates listed. If patient can be transitioned to oral p.o. antibiotics, ID team recommends close follow-up at preferably in ID clinic, field case manager is working on clinic options for this, as well as SNF placement if patient can preferably get that. Result Diagram: 03/30/19 0537 03/30/19 0537 Results 24hrs Laboratory Tests Test 03/30/19 05:37 White Blood Count 9.6 Red Blood Count 3.52 L Hemoglobin 9.3 L Hematocrit 29.4 L Mean Corpuscular Volume 83.5 Mean Corpuscular Hemoglobin 26.4 L Mean Corpuscular Hemoglobin Concent 31.6 L Red Cell Distribution Width 14.9 H Platelet Count 307 Mean Platelet Volume 9.4 Immature Granulocytes % 0.600 H Neutrophils % 72.4 Lymphocytes % 15.6 Monocytes % 6.3 Eosinophils % 4.5 Basophils % 0.6 Nucleated Red Blood Cells % 0.0 Immature Granulocytes # 0.060 H Neutrophils # 7.0 Lymphocytes # 1.5 Monocytes # 0.6 Eosinophils # 0.4 Basophils # 0.1 Nucleated Red Blood Cells # 0.0 Sodium Level 136 Potassium Level 3.7 Chloride Level 101 Carbon Dioxide Level 28 Anion Gap 7 Blood Urea Nitrogen 18 Creatinine 1.01 Est Glomerular Filtrat Rate mL/min > 60 Glucose Level 142 Calcium Level 8.3 L Exam/Review of Systems Exam Vitals Vital Signs Date Temp Pulse Resp B/P (MAP) Pulse Ox O2 O2 Flow FiO2 Time Delivery Rate 03/30/19 85 18 98 Simple 6.0 08:45 Mask 03/30/19 97.7 119/86 07:50 (97) Intake and Output 03/29/19 03/29/19 03/30/19 1515:00 23:00 07:00 IntakeIntake Total 1000 ml OutputOutput Total 1500 ml BalanceBalance -500 ml Results Results 24hrs Laboratory Tests Test 03/30/19 05:37 White Blood Count 9.6 Red Blood Count 3.52 L Hemoglobin 9.3 L Hematocrit 29.4 L Mean Corpuscular Volume 83.5 Mean Corpuscular Hemoglobin 26.4 L Mean Corpuscular Hemoglobin Concent 31.6 L Red Cell Distribution Width 14.9 H Platelet Count 307 Mean Platelet Volume 9.4 Immature Granulocytes % 0.600 H Neutrophils % 72.4 Lymphocytes % 15.6 Monocytes % 6.3 Eosinophils % 4.5 Basophils % 0.6 Nucleated Red Blood Cells % 0.0 Immature Granulocytes # 0.060 H Neutrophils # 7.0 Lymphocytes # 1.5 Monocytes # 0.6 Eosinophils # 0.4 Basophils # 0.1 Nucleated Red Blood Cells # 0.0 Sodium Level 136 Potassium Level 3.7 Chloride Level 101 Carbon Dioxide Level 28 Anion Gap 7 Blood Urea Nitrogen 18 Creatinine 1.01 Est Glomerular Filtrat Rate mL/min > 60 Glucose Level 142 Calcium Level 8.3 L Medications Medication Current Medications IV Flush (NS 3 ml) 3 ml PER PROTOCOL IV ; Start 03/17/19 at 15:00 Enoxaparin Sodium (Lovenox) 40 mg DAILY SC Last administered on 03/21/19at 08:19; Admin Dose 40 MG; Start 03/18/19 at 15:30; Status Hold Furosemide (Lasix) 20 mg DAILY PO Last administered on 03/30/19at 08:19; Admin Dose 20 MG; Start 03/20/19 at 09:00 Ceftriaxone Sodium 50 ml @ 100 mls/hr Q24H IVPB Last administered on 03/29/19 11:56; Admin Dose 100 MLS/HR; Start 03/23/19 at 11:00 Guaifenesin/ Dextromethorphan (Robitussin Dm Liquid Cup) 5 ml Q4H PRN PO COUGH Last administered on 03/30/19 08:26; Admin Dose 5 ML; Start 03/23/19 at 22:00 Phenol (Cepastat Lozenge) 1 lozenge Q1H PRN MT COUGH Last administered on 03/29/19 02:10; Admin Dose 1 LOZENGE; Start 03/24/19 at 13:30 Morphine Sulfate (morphine) 1 mg Q4H PRN IV SEVERE PAIN LEVEL 7-10 Last administered on 03/30/19 08:27; Admin Dose 1 MG; Start 03/24/19 at 16:00 Oxycodone/ Acetaminophen (Percocet (5/ 325)) 1 tab Q6H PRN PO .SEVERE PAIN 7-10 Last administered on 03/29/19 20:31; Admin Dose 1 TAB; Start 03/24/19 at 15:00 Albuterol/ Ipratropium (Duoneb) 3 ml Q4H RESP THERAPY HHN Last administered on 03/30/19 08:45; Admin Dose 3 ML; Start 03/26/19 at 16:30 Fluconazole (Diflucan) 200 mg DAILY PO Last administered on 03/30/19 08:19; Admin Dose 200 MG; Start 03/27/19 at 11:30 Senna (Senokot) 1 tab BID PO Last administered on 03/30/19 08:19; Admin Dose 1 TAB; Start 03/27/19 at 21:00 Docusate Sodium (Colace) 100 mg BID PRN PO CONSTIPATION; Start 03/27/19 at 15:30 Apixaban (Eliquis) 5 mg BID PO Last administered on 03/30/19 08:19; Admin Dose 5 MG; Start 03/29/19 at 09:00 Iohexol ((Gastrografin therapeutic equivalent)) 900 ml G[address]IOR TO CT ONCE PO ; Start 03/30/19 at 11:00; Stop 03/30/19 at 11:01 ROWAN OVALLE March 30, 2019 10:32
[2019-03-30] MEDS ORDERED: IOHEXOL 14.3 MG(I)/ML (ADULT) BTL PO ONE (11:00)
[2019-03-30] MEDS: CEFTRIAXONE 2 GM/50 ML (PMX) 50 ML IVPB SCH (11:55)
[2019-03-30] MEDS ORDERED: IOHEXOL 300MG/ML 150 ML BTL ONE (14:15)
[2019-03-30] MEDS ORDERED: SOD CHLORIDE 0.9% 100 ML ONE (14:15)
--- NOTE | 2019-03-30 15:40 | PN ---
Date/Time of Note Date/Time of Note DATE: 03/30/19 TIME: 15:38 Assessment/Plan VTE Prophylaxis Risk score (from [facility])>0 risk: 2 SCD applied (from [facility]): No SCD contraindicated: other Pharmacological prophylaxis: apixaban Lines/Catheters IV [facility]ter [facility] (from [facility]): Saline Lock Urinary Cath still in place: No Assessment/Plan Assessment/Plan 28-year-old man with history of intravenous drug abuse, now noted to have pulmonary emboli. > Pulmonary emboli Patient has since been started on anticoagulation and deep vein thrombosis examinations have been negative. CT scan of abdomen and pelvis with IV contrast discussed with radiology and will follow-up results Otherwise, would continue with anticoagulation. > Thrombophilia Evaluation for antiphospholipid syndrome and activated protein C resistance is pending > Intravenous drug abuse Currently, the patient is without any obvious evidence of withdrawal. Supportive care as needed. Result Diagram: 03/30/19 0537 03/30/19 0537 Results 24hrs Laboratory Tests Test 03/30/19 05:37 White Blood Count 9.6 Red Blood Count 3.52 L Hemoglobin 9.3 L Hematocrit 29.4 L Mean Corpuscular Volume 83.5 Mean Corpuscular Hemoglobin 26.4 L Mean Corpuscular Hemoglobin Concent 31.6 L Red Cell Distribution Width 14.9 H Platelet Count 307 Mean Platelet Volume 9.4 Immature Granulocytes % 0.600 H Neutrophils % 72.4 Lymphocytes % 15.6 Monocytes % 6.3 Eosinophils % 4.5 Basophils % 0.6 Nucleated Red Blood Cells % 0.0 Immature Granulocytes # 0.060 H Neutrophils # 7.0 Lymphocytes # 1.5 Monocytes # 0.6 Eosinophils # 0.4 Basophils # 0.1 Nucleated Red Blood Cells # 0.0 Sodium Level 136 Potassium Level 3.7 Chloride Level 101 Carbon Dioxide Level 28 Anion Gap 7 Blood Urea Nitrogen 18 Creatinine 1.01 Est Glomerular Filtrat Rate mL/min > 60 Glucose Level 142 Calcium Level 8.3 L Subjective 24 Hr Interval Summary Free Text/Dictation Patient is awake, alert responsive Exam/Review of Systems Exam Vitals Vital Signs Date Temp Pulse Resp B/P (MAP) Pulse Ox O2 O2 Flow FiO2 Time Delivery Rate 03/30/19 98.0 99 19 134/75 97 15:20 (94) 03/30/19 Simple 6.0 08:45 Mask Intake and Output 03/29/19 03/29/19 03/30/19 1515:00 23:00 07:00 IntakeIntake Total 1000 ml OutputOutput Total 1500 ml BalanceBalance -500 ml Constitutional: alert, oriented Head: normocephalic, atraumatic Eyes: nl conjunctiva, EOMI Neck: supple, non-tender Respiratory: clear to auscultation, normal air movement Cardiovascular: regular rate and rhythm, nl pulses Gastrointestinal: soft, non-tender Extremities: normal pulses Results Results 24hrs Laboratory Tests Test 03/30/19 05:37 White Blood Count 9.6 Red Blood Count 3.52 L Hemoglobin 9.3 L Hematocrit 29.4 L Mean Corpuscular Volume 83.5 Mean Corpuscular Hemoglobin 26.4 L Mean Corpuscular Hemoglobin Concent 31.6 L Red Cell Distribution Width 14.9 H Platelet Count 307 Mean Platelet Volume 9.4 Immature Granulocytes % 0.600 H Neutrophils % 72.4 Lymphocytes % 15.6 Monocytes % 6.3 Eosinophils % 4.5 Basophils % 0.6 Nucleated Red Blood Cells % 0.0 Immature Granulocytes # 0.060 H Neutrophils # 7.0 Lymphocytes # 1.5 Monocytes # 0.6 Eosinophils # 0.4 Basophils # 0.1 Nucleated Red Blood Cells # 0.0 Sodium Level 136 Potassium Level 3.7 Chloride Level 101 Carbon Dioxide Level 28 Anion Gap 7 Blood Urea Nitrogen 18 Creatinine 1.01 Est Glomerular Filtrat Rate mL/min > 60 Glucose Level 142 Calcium Level 8.3 L Medications Medication Current Medications IV Flush (NS 3 ml) 3 ml PER PROTOCOL IV ; Start 03/17/19 at 15:00 Enoxaparin Sodium (Lovenox) 40 mg DAILY SC Last administered on 03/21/19at 08:19; Admin Dose 40 MG; Start 03/18/19 at 15:30; Status Hold Furosemide (Lasix) 20 mg DAILY PO Last administered on 03/30/19at 08:19; Admin Dose 20 MG; Start 03/20/19 at 09:00 Ceftriaxone Sodium 50 ml @ 100 mls/hr Q24H IVPB Last administered on 03/30/19at 11:55; Admin Dose 100 MLS/HR; Start 03/23/19 at 11:00 Guaifenesin/ Dextromethorphan (Robitussin Dm Liquid Cup) 5 ml Q4H PRN PO COUGH Last administered on 03/30/19 12:33; Admin Dose 5 ML; Start 03/23/19 at 22:00 Phenol (Cepastat Lozenge) 1 lozenge Q1H PRN MT COUGH Last administered on 03/29/19 02:10; Admin Dose 1 LOZENGE; Start 03/24/19 at 13:30 Morphine Sulfate (morphine) 1 mg Q4H PRN IV SEVERE PAIN LEVEL 7-10 Last administered on 03/30/19 12:34; Admin Dose 1 MG; Start 03/24/19 at 16:00 Oxycodone/ Acetaminophen (Percocet (5/ 325)) 1 tab Q6H PRN PO .SEVERE PAIN 7-10 Last administered on 03/29/19 20:31; Admin Dose 1 TAB; Start 03/24/19 at 15:00 Albuterol/ Ipratropium (Duoneb) 3 ml Q4H RESP THERAPY HHN Last administered on 03/30/19 13:10; Admin Dose 3 ML; Start 03/26/19 at 16:30 Fluconazole (Diflucan) 200 mg DAILY PO Last administered on 03/30/19 08:19; Admin Dose 200 MG; Start 03/27/19 at 11:30 Senna (Senokot) 1 tab BID PO Last administered on 03/30/19 08:19; Admin Dose 1 TAB; Start 03/27/19 at 21:00 Docusate Sodium (Colace) 100 mg BID PRN PO CONSTIPATION; Start 03/27/19 at 15: 30 Apixaban (Eliquis) 5 mg BID PO Last administered on 03/30/19 08:19; Admin Dose 5 MG; Start 03/29/19 at 09:00 INA SCHAEFER MD March 30, 2019 15:40
[2019-03-30] MEDS ORDERED: ACETYLCYSTEINE 20% 4 ML VIAL NEB SCH (16:00)
[2019-03-30] MEDS: CEPASTAT LOZENGE MT PRN ×2 (16:07→18:38)
[2019-03-30] MEDS: OXYCODONE/ACETAMINOPHEN (5/325) TAB PO PRN (19:42)
[2019-03-30] MEDS: GUAIFENESIN/CODEINE 5ML CUP PO PRN (20:59)
[2019-03-30] MEDS: IPRATROPIUM (NEB) 0.5 MG/2.5 ML AMP HHN SCH (21:00)
[2019-03-30] MEDS: LEVALBUTEROL (NEB) 1.25 MG/0.5 ML AMP HHN SCH (21:00)
[2019-03-31] VITALS (12 sets, daily range): BP systolic 106–135; BP diastolic 62–88; PULSE 68–108; RESP 17–19
[2019-03-31] MEDS: IPRATROPIUM (NEB) 0.5 MG/2.5 ML AMP HHN SCH ×6 (00:35→20:46)
[2019-03-31] MEDS: LEVALBUTEROL (NEB) 1.25 MG/0.5 ML AMP HHN SCH ×6 (00:35→20:46)
[2019-03-31] MEDS: morphine 2 MG INJ IV PRN ×5 (00:56→21:06)
[2019-03-31] MEDS: GUAIFENESIN/CODEINE 5ML CUP PO PRN ×2 (00:56→05:07)
--- NOTE | 2019-03-31 07:39 | CONS ---
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 usual suspect in IVDA is staph or strep but pseudomonas and benjamin can also be seen continue with vanco/zosyn at present fevers have improved and WBC is improved today I will order WBC scan as pt c/o pain over the pacer site I will also order u/s of pacer site to see if there is fluid present 03/20 - GPC growing in all 3 sets of blood cx from 03/17, await ID MRSA in nasal continue with vanco/zosyn pt was seen in this hospital last month under a different MRN and he was evaluated for endocarditis at that time he had corynebacterium in two different sets of blood cx and had a MADINA which was neg for vegetations he was give two weeks of ceftriaxone for pneumonia, they also wondered if he had septic emboli or PE at that time he got an IVC filter but were planning to remove it because he did not have a PE but he left AMA u/s of around pacer site was neg for fluid collection WBC scan is pending 03/21 - WBC scan only has activity in the lung s.aureus is in the blood repeat blood cx on 03/18 are NGTD, repeat again continue with vanco, d/c zosyn 03/24- MSSA in blood, vanco stopped yesterday and switched to ceftriaxone 2gm q24 hours repeat blood cx all remain NGTD 03/25 - low grade temp noted, to repeat CXR procalcitonin was greatly improved but will repeat in a.m. continue with just ceftriaxone, all repeat blood cx are NGTD 03/26 - procalcitonin is pending but CXR from yesterday was slightly improved WBC is still elevated and higher today, clinically pt is much improved I saw that in january he had a marginal positive IgM cocci titer, to repeat this if procalcitonin is higher to broaden pulmonary coverage 03/27 - procalcitonin continues to improve, doubt he has pneumonia failing current therapy await repeat cocci titers to repeat blood cx again x1 03/28 - stable 03/29 - repeat blood cx remain neg continue with ceftriaxone 03/30 - WBC has normalized since back on anti-coagulation day of ceftriaxone 03/31 - CT abd/pelv shows clot above the IVC filter and improved LL infiltrates 2) IVDA pt states he was tested in the last 1-2 months and was neg for HIV and he does not share his needles no hx of hepatitis either I will check into his prior hospitalization here that if it exists is under another MR# 5/ - pt has another MRN and his HIV was neg in february he had corynebacterium in two different sets of blood cx then 3) pulmonary infiltrates PACS system is not working on two different computers, I need to see his CT's and CXR to see if these are c/w septic emboli or not vanco/zosyn should cover if he has pneumonia rather than septic emboli procalcitonin has been ordered also 03/20 - his prior chest CT last month shows that he has waxing and waning of pulmonary infiltrates and his cavitary lesions have improved slightly his pulmonary infiltrates are patchy and somewhat large which would be atypical for septic emboli his procalcitonin is very high but bacteremia will also elevated it continue with vanco/zosyn will check for atypical organisms with serology 03/21 - pt is able to bring up some phlegm will order cx s.aureus is likely the culprit continue with vanco, d/c zosyn but add levaquin for atypical coverage 03/24 - sputum cx has c.alb only continue with levaquin and ceftriaxone, legionella was neg 03/25 - mycoplasma IgG was elevated but no IgM sent and at this time results would be back after he has finished his levaquin day 03/11 of levaquin 03/26 - day 6/ of levaquin CXR is improved check cocci titers since he had an equivocal IgM titer in january 201903/27 - today is last day of his oral levaquin await cocci titers 03/29 - pt has new areas of probable septic emboli pt had his lovenox stopped and is now re-started cause of new septic emboli are either due to ongoing infection of TV, which would indicate he needs surgery or due to a hypercoagulable state and in SBE the development of APLA can occur so will order this test in a.m. I will also repeat LE venous dopplers (pt already has an IVC filter in 03/30 - venous dopplers to UE and LE were negative no swelling of legs WBC has normalized since anti-coagulation was started await repeat 2d echo 03/31 - hemoptysis noted but minimal decrease in Hgb continue with anti-coagulation repeat procalcitonin in a.m., improved LL infiltrates noted on CT abd/pelv 4) ARF 03/21 this is improving 03/24 - resolved 5) leukocytosis 03/26 - pt is clinically improved one of his legs is slightly swollen but not tender and he had a neg LE venous doppler on 03/17 no diarrhea, so c.dif is unlikely no urinary c/o but will repeat u/a and urine cx will check cocci titers since pt had an equivocal IgM titer in january 2019 check RPR pt had a neg HIV test in january 2019 and HIV would not be cause of leukocytosis 03/27 - increasing alk phos, but pt is asymptomatic, will order RUQ u/s increasing WBC but decreasing procalcitonin, repeat both in a.m. 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 Consultation Date/Type/Reason Admit Date/Time March 17, 2019 at 15:13 Initial Consult Date 03/19/19 Type of Consult ID Requesting Provider: ROBY MILLER MD Date/Time of Note DATE: 03/31/19 TIME: 07:33 24 HR Interval Summary Free Text/Dictation pt states he was coughing up blood post CT scan nurse reports mask had to be changed several times due to blood on it no SOB, N, V no D, abd pain Exam/Review of Systems Exam Vitals Vital Signs Date Temp Pulse Resp B/P (MAP) Pulse Ox O2 O2 Flow FiO2 Time Delivery Rate 03/31/19 98.9 78 18 110/67 100 Mask 07:26 (81) 03/31/19 8.0 05:35 Intake and Output 03/30/19 03/30/19 03/31/19 1515:00 23:00 07:00 IntakeIntake Total 1500 ml 1000 ml OutputOutput Total 1300 ml 2200 ml BalanceBalance 200 ml -1200 ml Constitutional: alert, oriented Respiratory: clear to auscultation Cardiovascular: regular rate and rhythm Gastrointestinal: soft, non-tender Results Result Diagram: 03/31/19 0546 03/31/19 0546 Results 24hrs Laboratory Tests Test 03/31/19 05:46 White Blood Count 8.9 Red Blood Count 3.43 L Hemoglobin 9.1 L Hematocrit 28.9 L Mean Corpuscular Volume 84.3 Mean Corpuscular Hemoglobin 26.5 L Mean Corpuscular Hemoglobin Concent 31.5 L Red Cell Distribution Width 15.1 H Platelet Count 318 Mean Platelet Volume 9.4 Immature Granulocytes % 0.700 H Neutrophils % 69.8 Lymphocytes % 19.4 Monocytes % 6.2 Eosinophils % 3.0 Basophils % 0.9 Nucleated Red Blood Cells % 0.0 Immature Granulocytes # 0.060 H Neutrophils # 6.2 Lymphocytes # 1.7 Monocytes # 0.6 Eosinophils # 0.3 Basophils # 0.1 Nucleated Red Blood Cells # 0.0 Sodium Level 137 Potassium Level 4.7 Chloride Level 99 Carbon Dioxide Level 32 H Anion Gap 6 Blood Urea Nitrogen 28 H Creatinine 1.15 Est Glomerular Filtrat Rate mL/min > 60 Glucose Level 106 Calcium Level 8.7 Medications Medication Current Medications IV Flush (NS 3 ml) 3 ml PER PROTOCOL IV ; Start 03/17/19 at 15:00 Enoxaparin Sodium (Lovenox) 40 mg DAILY SC Last administered on 03/21/19at 08 :19; Admin Dose 40 MG; Start 03/18/19 at 15:30; Status Hold Furosemide (Lasix) 20 mg DAILY PO Last administered on 03/30/19 08:19; Admin Dose 20 MG; Start 03/20/19 at 09:00 Ceftriaxone Sodium 50 ml @ 100 mls/hr Q24H IVPB Last administered on 03/30/19at 11:55; Admin Dose 100 MLS/HR; Start 03/23/19 at 11:00 Guaifenesin/ Dextromethorphan (Robitussin Dm Liquid Cup) 5 ml Q4H PRN PO COUGH Last administered on 03/30/19at 16:43; Admin Dose 5 ML; Start 03/23/19 at 22:00 Phenol (Cepastat Lozenge) 1 lozenge Q1H PRN MT COUGH Last administered on 03/30/19at 18:38; Admin Dose 1 LOZENGE; Start 03/24/19 at 13:30 Morphine Sulfate (morphine) 1 mg Q4H PRN IV SEVERE PAIN LEVEL 7-10 Last administered on 03/31/19at 05:07; Admin Dose 1 MG; Start 03/24/19 at 16:00 Oxycodone/ Acetaminophen (Percocet (5/ 325)) 1 tab Q6H PRN PO .SEVERE PAIN 7-10 Last administered on 03/30/19at 19:42; Admin Dose 1 TAB; Start 03/24/19 at 15:00 Fluconazole (Diflucan) 200 mg DAILY PO Last administered on 03/30/19 08:19; Admin Dose 200 MG; Start 03/27/19 at 11:30 Senna (Senokot) 1 tab BID PO Last administered on 03/30/19 08:19; Admin Dose 1 TAB; Start 03/27/19 at 21:00 Docusate Sodium (Colace) 100 mg BID PRN PO CONSTIPATION; Start 03/27/19 at 15:30 Apixaban (Eliquis) 5 mg BID PO Last administered on 03/30/19at 08:19; Admin Dose 5 MG; Start 03/29/19 at 09:00 Levalbuterol (Xopenex Neb) 1.25 mg Q4H RESP THERAPY HHN ; Start 03/30/19 at 21:00 Ipratropium [place] (Atrovent 0.02% (Neb)) 0.5 mg Q4H RESP THERAPY HHN ; Start 03/30/19 at 21:00 Guaifenesin/ Codeine Phosphate (Robitussin Ac Liquid Cup) 10 ml Q4H PRN PO COU GH Last administered on 03/31/19at 05:07; Admin Dose 10 ML; Start 03/30/19 at 21:00; Stop 03/31/19 at 08:00 JANETH LOGAN MD March 31, 2019 07:39
[2019-03-31] MEDS ORDERED: GUAIFENESIN/CODEINE 5ML CUP PO PRN (08:00)
--- NOTE | 2019-03-31 09:14 | PN ---
Date/Time of Note Date/Time of Note DATE: 03/31/19 TIME: 09:10 Assessment/Plan VTE Prophylaxis Risk score (from Ns)>0 risk: 2 SCD applied (from [facility]): No SCD contraindicated: other Pharmacological prophylaxis: apixaban Lines/Catheters IV Catheter Type (from [facility] Saline Lock Urinary Cath still in place: No Assessment/Plan Hospital Course S: Patient had some more hemoptysis last night, Eliquis was held. Per nursing staff no reports of hemoptysis this morning. CT abdomen pelvis was performed yesterday with results reviewed O: VS - see below EXAM: Lying in bed, NAD PERRL, EOMI Supple Slightly distant breath sounds bilaterally S1, S2 heard PPM No edema CTA chest March 28, 2019 iMPRESSION: 1. Complete occlusion of the left lower lobe pulmonary artery. 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 Interval new thrombus and complete occlusion of the left upper lobe pulmonary artery. 2. New multifocal peripheral consolidations in the left apex, suspicious for pulmonary infarcts given the new occlusion of the left upper lobe pulmonary. 3. New increased prevascular adenopathy measuring up to 34 mm. Prominent hilar adenopathy bilaterally measuring up to 18 mm in short axis diameter. Partially cavitary nodules in the right upper lobe and right middle lobe, as discussed above. 4. Decrease in diffuse ground-glass and consolidation of the left lower lobe with residual centrilobular ground-glass densities and scarring. Decreased consolidation in the right lower lobe with scarring, traction bronchiectasis and cystic change. Given the combined findings of mediastinal and hilar soft tissue/adenopathy, pulmonary artery occlusions, multifocal consolidations and cavitary nodules, differential considerations include Behcet's disease, vasculitides including Luis's granulomatosis, alveolar sarcoidosis, and infectious etiologies including septic emboli, fungal and mycobacterial etiologies depending on patient's compromised immune status and degree of immunosuppression. 5. Mild increased right pleural effusion. 6. Mild cardiomegaly with relative enlargement of the right atrial chamber. 7. Status post left-sided pacer with dual chamber leads. 8. Borderline splenomegaly. CT abdomen pelvis IV contrast: IMPRESSION: 1. This patient has an IVC filter in place in the infrarenal cava. There is a 1.3 x 0.9 cm clot above the IVC filter attach to the tip. No significant clot is noted inferior to the IVC filter. 2. Persistent right lower lobe pulmonary embolus. 3. Improving patchy nodular bilateral lower lobe infiltrates. There is residual bronchiectasis in both lower lobes and scattered blebs. 4. Decreasing right pleural effusion. 5. Mild cardiomegaly. 6. Heterogeneous fatty infiltration of the liver with hepatomegaly. This may be partially due to venous congestion. . 7. Contracted gallbladder with mild wall thickening. Recommend further evaluation with ultrasound and clinical correlation to exclude cholecystitis. 8. Infiltration of the mesentery and small ascites in the abdomen pelvis. No abscess or free air. 9. Moderate constipation. 10. Appendix not visualized. 11. Stable lytic/cystic lesion in the proximal left femur. A/P: 28 yo male with h/o valve replacements and PPM following endocarditis in 2017 (specifics unclear) who presented with fever, tachypnea, and hypoxia with pulmonary infiltrates following IV meth use, with positive endocarditis again. 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 Repeat cultures negative to date. -Per ID team continue 2 g ceftriaxone (until May 04) and completed Levaquin on March 28. -cultures per ID recs # Acute hypoxic respiratory failure with fever/sepsis- 2/2 pneumonia and likely septic embolus as seen on CTA performed both earlier this admission, and again in fact even worse on repeat CTA chest performed 3 days ago. Of note, patient in January 2019 was diagnosed with pulmonary embolism and was sent home with Eliquis at that time, unclear he has been compliant with this at home however. - Continue abx per Dr Hastings, they are also checking antiphospholipid antibody to rule out potential hypercoagulable state because of his emboli. Follow-up protein C. Other consideration is patient could be tricuspid valve endocarditis etiology. -Continue Eliquis 5 mg twice daily, follow-up further ID, pulmonary, and hematology oncology recommendations - Monitor, continue O2 as needed - Continue antitussives as needed for cough # CLAUDIA: Resolving now -Monitor, follow-up renal recommendations # H/o valve replacements and PPM-presently appears stable -Monitor Dispo: As mentioned above, when patient ready for discharge will need antibi otics for the dates listed. If patient can be transitioned to oral p.o. antibiotics, ID team recommends close follow-up at preferably in ID clinic, rn field case manager is working on clinic options for this, as well as SNF placement if patient can preferably get that. Patient will also need Eliquis. Result Diagram: 03/31/19 0546 03/31/19 0546 Results 24hrs Laboratory Tests Test 03/31/19 05:46 White Blood Count 8.9 Red Blood Count 3.43 L Hemoglobin 9.1 L Hematocrit 28.9 L Mean Corpuscular Volume 84.3 Mean Corpuscular Hemoglobin 26.5 L Mean Corpuscular Hemoglobin Concent 31.5 L Red Cell Distribution Width 15.1 H Platelet Count 318 Mean Platelet Volume 9.4 Immature Granulocytes % 0.700 H Neutrophils % 69.8 Lymphocytes % 19.4 Monocytes % 6.2 Eosinophils % 3.0 Basophils % 0.9 Nucleated Red Blood Cells % 0.0 Immature Granulocytes # 0.060 H Neutrophils # 6.2 Lymphocytes # 1.7 Monocytes # 0.6 Eosinophils # 0.3 Basophils # 0.1 Nucleated Red Blood Cells # 0.0 Sodium Level 137 Potassium Level 4.7 Chloride Level 99 Carbon Dioxide Level 32 H Anion Gap 6 Blood Urea Nitrogen 28 H Creatinine 1.15 Est Glomerular Filtrat Rate mL/min > 60 Glucose Level 106 Calcium Level 8.7 Exam/Review of Systems Exam Vitals Vital Signs Date Temp Pulse Resp B/P (MAP) Pulse Ox O2 O2 Flow FiO2 Time Delivery Rate 03/31/19 85 08:27 03/31/19 98.9 18 110/67 100 Mask 07:26 (81) 03/31/19 8.0 05:35 Intake and Output 03/30/19 03/30/19 03/31/19 1515:00 23:00 07:00 IntakeIntake Total 1500 ml 1000 ml OutputOutput Total 1300 ml 2200 ml BalanceBalance 200 ml -1200 ml Results Results 24hrs Laboratory Tests Test 03/31/19 05:46 White Blood Count 8.9 Red Blood Count 3.43 L Hemoglobin 9.1 L Hematocrit 28.9 L Mean Corpuscular Volume 84.3 Mean Corpuscular Hemoglobin 26.5 L Mean Corpuscular Hemoglobin Concent 31.5 L Red Cell Distribution Width 15.1 H Platelet Count 318 Mean Platelet Volume 9.4 Immature Granulocytes % 0.700 H Neutrophils % 69.8 Lymphocytes % 19.4 Monocytes % 6.2 Eosinophils % 3.0 Basophils % 0.9 Nucleated Red Blood Cells % 0.0 Immature Granulocytes # 0.060 H Neutrophils # 6.2 Lymphocytes # 1.7 Monocytes # 0.6 Eosinophils # 0.3 Basophils # 0.1 Nucleated Red Blood Cells # 0.0 Sodium Level 137 Potassium Level 4.7 Chloride Level 99 Carbon Dioxide Level 32 H Anion Gap 6 Blood Urea Nitrogen 28 H Creatinine 1.15 Est Glomerular Filtrat Rate mL/min > 60 Glucose Level 106 Calcium Level 8.7 Medications Medication Current Medications IV Flush (NS 3 ml) 3 ml PER PROTOCOL IV ; Start 03/17/19 at 15:00 Enoxaparin Sodium (Lovenox) 40 mg DAILY SC Last administered on 03/21/19 08:1 9; Admin Dose 40 MG; Start 03/18/19 at 15:30; Status Hold Furosemide (Lasix) 20 mg DAILY PO Last administered on 03/30/19 08:19; Admin Dose 20 MG; Start 03/20/19 at 09:00 Ceftriaxone Sodium 50 ml @ 100 mls/hr Q24H IVPB Last administered on 03/30/19 11:55; Admin Dose 100 MLS/HR; Start 03/23/19 at 11:00 Guaifenesin/ Dextromethorphan (Robitussin Dm Liquid Cup) 5 ml Q4H PRN PO COUGH Last administered on 03/30/19 16:43; Admin Dose 5 ML; Start 03/23/19 at 22:00 Phenol (Cepastat Lozenge) 1 lozenge Q1H PRN MT COUGH Last administered on 03/30/19 18:38; Admin Dose 1 LOZENGE; Start 03/24/19 at 13:30 Morphine Sulfate (morphine) 1 mg Q4H PRN IV SEVERE PAIN LEVEL 7-10 Last administered on 03/31/19 05:07; Admin Dose 1 MG; Start 03/24/19 at 16:00 Oxycodone/ Acetaminophen (Percocet (5/ 325)) 1 tab Q6H PRN PO .SEVERE PAIN 7-10 Last administered on 03/30/19 19:42; Admin Dose 1 TAB; Start 03/24/19 at 15:00 Fluconazole (Diflucan) 200 mg DAILY PO Last administered on 03/30/19 08:19; Admin Dose 200 MG; Start 03/27/19 at 11:30 Senna (Senokot) 1 tab BID PO Last administered on 03/30/19 08:19; Admin Dose 1 TAB; Start 03/27/19 at 21:00 Docusate Sodium (Colace) 100 mg BID PRN PO CONSTIPATION; Start 03/27/19 at 15:30 Apixaban (Eliquis) 5 mg BID PO Last administered on 03/30/19at 08:19; Admin Dose 5 MG; Start 03/29/19 at 09:00 Levalbuterol (Xopenex Neb) 1.25 mg Q4H RESP THERAPY HHN Last administered on 03/31/19 09:05; Admin Dose 1.25 MG; Start 03/30/19 at 21:00 Ipratropium [place] (Atrovent 0.02% (Neb)) 0.5 mg Q4H RESP THERAPY HHN Last administered on 03/31/19at 09:05; Admin Dose 0.5 MG; Start 03/30/19 at 21:00 ROWAN OVALLE March 31, 2019 09:14
[2019-03-31] MEDS: SENNA TAB PO SCH ×2 (09:36→21:02)
[2019-03-31] MEDS: FLUCONAZOLE 200 MG TAB PO SCH (09:36)
[2019-03-31] MEDS: APIXABAN 5 MG TABLET PO SCH (09:37)
[2019-03-31] MEDS: FUROSEMIDE 20 MG TAB PO SCH (09:37)
[2019-03-31] MEDS: GUAIFENESIN/DM 5ML CUP PO PRN ×3 (09:50→19:42)
[2019-03-31] MEDS: CEPASTAT LOZENGE MT PRN ×5 (09:50→19:43)
[2019-03-31] MEDS: CEFTRIAXONE 2 GM/50 ML (PMX) 50 ML IVPB SCH (11:35)
[2019-03-31] MEDS: OXYCODONE/ACETAMINOPHEN (5/325) TAB PO PRN (12:06)
--- NOTE | 2019-03-31 12:38 | CONS ---
Assessment/Plan Assessment/Plan Assessment/Plan (Daily) Assessment and recommendations; 1. Patient admitted with endocarditis with septic embolism to lungs with significant persistent hemoptysis. Possibly some element of vasculitis. 2. Negative lower extremity ultrasound for DVT. 3. Prior history of tricuspid valve replacement due to endocarditis. 4. Active drug abuse. 5. Stable hematocrit. Discontinue further anticoagulation. Trial of Solu-Medrol 40 mg every 8 hours at least for 6 doses. Consultation Date/Type/Reason Admit Date/Time March 17, 2019 at 15:13 Initial Consult Date 03/29/19 Type of Consult Pulmonary Patient is a 28-year-old male who was admitted on the of this month with complaints of fever and chills after using intravenous methamphetamine prior to admission. Patient is been diagnosed with endocarditis and is currently on appropriate antimicrobial regimen. CT chest was done yesterday which is showing what appears to be acute on chronic right-sided pulmonary embolic disease. Patient is complaining very scant hemoptysis and according to him is feeling much better since admission. Denies any chest pain, compress very mild shortness of breath. Past medical history; 1. History of sternotomy with valve replacement. Likely tricuspid valve. 2. History of active intravenous drug use. Medications; reviewed. Allergies; none. Social history; positive for drug abuse. Family history; noncontributory. Occupational history; patient is on disability. Review of systems; denies any headache, seizures, visual changes. Any chest pain, complains of very minimal cough with very minimal hemoptysis. Denies any abdominal pain, nausea vomiting. Any fever chills. Any back pain. Any skin changes. Appears very minimal weight loss. Denies any melena hematochezia. General exam; young male, awake alert, currently no distress. Laying comfo rtably in bed. Requesting Provider: ROBY MILLER MD Date/Time of Note DATE: 03/31/19 TIME: 12:36 24 HR Interval Summary Free Text/Dictation Patient condition is tenuous at best. Still complaining of significant inte rmittent hemoptysis. General exam; young male, awake alert, currently no distress. Exam/Review of Systems Exam Vitals Vital Signs Date Temp Pulse Resp B/P (MAP) Pulse Ox O2 O2 Flow FiO2 Time Delivery Rate 03/31/19 92 12:25 03/31/19 98.5 18 123/76 96 Mask 11:24 (92) 03/31/19 7.0 09:05 Intake and Output 03/30/19 03/30/19 03/31/19 1515:00 23:00 07:00 IntakeIntake Total 1500 ml 1000 ml OutputOutput Total 1300 ml 2200 ml BalanceBalance 200 ml -1200 ml Exam H EENT exam; supple neck, no JVD. No lymphadenopathy. Midline trachea. No thyromegaly. Patient has fair dentition. No neck masses. Chest exam; diminished but clear breath sounds. S1-S2 audible, no murmurs. There is a well-healed sternal scar. Abdomen exam; soft, nontender. No organomegaly. Bowel sounds audible. Extremity exam; no peripheral edema clubbing. [employer] exam; no focal deficit. Results Result Diagram: 03/31/19 0546 03/31/19 0546 Results 24hrs Laboratory Tests Test 03/31/19 05:46 White Blood Count 8.9 Red Blood Count 3.43 L Hemoglobin 9.1 L Hematocrit 28.9 L Mean Corpuscular Volume 84.3 Mean Corpuscular Hemoglobin 26.5 L Mean Corpuscular Hemoglobin Concent 31.5 L Red Cell Distribution Width 15.1 H Platelet Count 318 Mean Platelet Volume 9.4 Immature Granulocytes % 0.700 H Neutrophils % 69.8 Lymphocytes % 19.4 Monocytes % 6.2 Eosinophils % 3.0 Basophils % 0.9 Nucleated Red Blood Cells % 0.0 Immature Granulocytes # 0.060 H Neutrophils # 6.2 Lymphocytes # 1.7 Monocytes # 0.6 Eosinophils # 0.3 Basophils # 0.1 Nucleated Red Blood Cells # 0.0 Sodium Level 137 Potassium Level 4.7 Chloride Level 99 Carbon Dioxide Level 32 H Anion Gap 6 Blood Urea Nitrogen 28 H Creatinine 1.15 Est Glomerular Filtrat Rate mL/min > 60 Glucose Level 106 Calcium Level 8.7 Medications Medication Current Medications IV Flush (NS 3 ml) 3 ml PER PROTOCOL IV ; Start 03/17/19 at 15:00 Furosemide (Lasix) 20 mg DAILY PO Last administered on 03/31/19at 09:37; Admin Dose 20 MG; Start 03/20/19 at 09:00 Ceftriaxone Sodium 50 ml @ 100 mls/hr Q24H IVPB Last administered on 03/31/19at 11:35; Admin Dose 100 MLS/HR; Start 03/23/19 at 11:00 Guaifenesin/ Dextromethorphan (Robitussin Dm Liquid Cup) 5 ml Q4H PRN PO COUGH Last administered on 03/31/19 09:50; Admin Dose 5 ML; Start 03/23/19 at 22:00 Phenol (Cepastat Lozenge) 1 lozenge Q1H PRN MT COUGH Last administered on 03/31/19 11:35; Admin Dose 1 LOZENGE; Start 03/24/19 at 13:30 Morphine Sulfate (morphine) 1 mg Q4H PRN IV SEVERE PAIN LEVEL 7-10 Last administered on 03/31/19 09:50; Admin Dose 1 MG; Start 03/24/19 at 16:00 Oxycodone/ Acetaminophen (Percocet (5/ 325)) 1 tab Q6H PRN PO .SEVERE PAIN 7-10 Last administered on 03/31/19 12:06; Admin Dose 1 TAB; Start 03/24/19 at 15:00 Fluconazole (Diflucan) 200 mg DAILY PO Last administered on 03/31/19 09:36; Admin Dose 200 MG; Start 03/27/19 at 11:30 Senna (Senokot) 1 tab BID PO Last administered on 03/31/19 09:36; Admin Dose 1 TAB; Start 03/27/19 at 21:00 Docusate Sodium (Colace) 100 mg BID PRN PO CONSTIPATION; Start 03/27/19 at 15:30 Levalbuterol (Xopenex Neb) 1.25 mg Q4H RESP THERAPY HHN Last administered on 03/31/19 09:05; Admin Dose 1.25 MG; Start 03/30/19 at 21:00 Ipratropium [place] (Atrovent 0.02% (Neb)) 0.5 mg Q4H RESP THERAPY HHN Last administered on 03/31/19 09:05; Admin Dose 0.5 MG; Start 03/30/19 at 21:00 CARLOS TRIVEDI March 31, 2019 12:38
[2019-03-31] MEDS: METHYLPREDNISOLONE 40 MG INJ IV SCH ×2 (14:20→21:05)
--- NOTE | 2019-03-31 15:50 | PN ---
Date/Time of Note Date/Time of Note DATE: 03/31/19 TIME: 15:48 Assessment/Plan VTE Prophylaxis [place] [facility] risk: 2 [place]CD applied [place] [facility] [place] No SCD contraindicated: other Pharmacological prophylaxis: apixaban Lines/Catheters IV Catheter Type (from [facility] Saline Lock Urinary Cath still in place: No Assessment/Plan Assessment/Plan 28-year-old man with history of intravenous drug abuse, now noted to have pulmonary emboli. > Pulmonary emboli Patient has since been started on anticoagulation and deep vein thrombosis examinations have been negative. CT scan of abdomen and pelvis with IV contrast revealed clot on end of IVC filter which likely explains PE despite negative dopplers Obviously continue with anticoagulation. Results were discussed with patient and he is aware of need for anticoagulation > Thrombophilia Evaluation for antiphospholipid syndrome and activated protein C resistance is pending > Intravenous drug abuse Currently, the patient is without any obvious evidence of withdrawal. Supportive care as needed. 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 Result Diagram: 03/31/19 0546 03/31/19 0546 Results 24hrs Laboratory Tests Test 03/31/19 05:46 White Blood Count 8.9 Red Blood Count 3.43 L Hemoglobin 9.1 L Hematocrit 28.9 L Mean Corpuscular Volume 84.3 Mean Corpuscular Hemoglobin 26.5 L Mean Corpuscular Hemoglobin Concent 31.5 L Red Cell Distribution Width 15.1 H Platelet Count 318 Mean Platelet Volume 9.4 Immature Granulocytes % 0.700 H Neutrophils % 69.8 Lymphocytes % 19.4 Monocytes % 6.2 Eosinophils % 3.0 Basophils % 0.9 Nucleated Red Blood Cells % 0.0 Immature Granulocytes # 0.060 H Neutrophils # 6.2 Lymphocytes # 1.7 Monocytes # 0.6 Eosinophils # 0.3 Basophils # 0.1 Nucleated Red Blood Cells # 0.0 Sodium Level 137 Potassium Level 4.7 Chloride Level 99 Carbon Dioxide Level 32 H Anion Gap 6 Blood Urea Nitrogen 28 H Creatinine 1.15 Est Glomerular Filtrat Rate mL/min > 60 Glucose Level 106 Calcium Level 8.7 Subjective 24 Hr Interval Summary Free Text/Dictation Patient awake, alert, responsive, watching television Exam/Review of Systems Exam Vitals Vital Signs Date Temp Pulse Resp B/P (MAP) Pulse Ox O2 O2 Flow FiO2 Time Delivery Rate 03/31/19 98.2 72 18 123/62 98 15:45 (82) 03/31/19 Simple 7.0 13:46 Mask Intake and Output 03/30/19 03/30/19 03/31/19 1515:00 23:00 07:00 IntakeIntake Total 1500 ml 1000 ml OutputOutput Total 1300 ml 2200 ml BalanceBalance 200 ml -1200 ml Constitutional: alert, oriented Psych: no complaints Head: normocephalic, atraumatic Eyes: nl conjunctiva, EOMI Neck: supple, non-tender Respiratory: clear to auscultation, normal air movement Cardiovascular: regular rate and rhythm, nl pulses Gastrointestinal: soft, non-tender Results Results 24hrs Laboratory Tests Test 03/31/19 05:46 White Blood Count 8.9 Red Blood Count 3.43 L Hemoglobin 9.1 L Hematocrit 28.9 L Mean Corpuscular Volume 84.3 Mean Corpuscular Hemoglobin 26.5 L Mean Corpuscular Hemoglobin Concent 31.5 L Red Cell Distribution Width 15.1 H Platelet Count 318 Mean Platelet Volume 9.4 Immature Granulocytes % 0.700 H Neutrophils % 69.8 Lymphocytes % 19.4 Monocytes % 6.2 Eosinophils % 3.0 Basophils % 0.9 Nucleated Red Blood Cells % 0.0 Immature Granulocytes # 0.060 H Neutrophils # 6.2 Lymphocytes # 1.7 Monocytes # 0.6 Eosinophils # 0.3 Basophils # 0.1 Nucleated Red Blood Cells # 0.0 Sodium Level 137 Potassium Level 4.7 Chloride Level 99 Carbon Dioxide Level 32 H Anion Gap 6 Blood Urea Nitrogen 28 H Creatinine 1.15 Est Glomerular Filtrat Rate mL/min > 60 Glucose Level 106 Calcium Level 8.7 Medications Medication Current Medications IV Flush (NS 3 ml) 3 ml PER PROTOCOL IV ; Start 03/17/19 at 15:00 Furosemide (Lasix) 20 mg DAILY PO Last administered on 03/31/19at 09:37; Admin Dose 20 MG; Start 03/20/19 at 09:00 Ceftriaxone Sodium 50 ml @ 100 mls/hr Q24H IVPB Last administered on 03/31/19at 11:35; Admin Dose 100 MLS/HR; Start 03/23/19 at 11:00 Guaifenesin/ Dextromethorphan (Robitussin Dm Liquid Cup) 5 ml Q4H PRN PO COUGH Last administered on 03/31/19 14:20; Admin Dose 5 ML; Start 03/23/19 at 22:00 Phenol (Cepastat Lozenge) 1 lozenge Q1H PRN MT COUGH Last administered on 03/31/19 14:20; Admin Dose 1 LOZENGE; Start 03/24/19 at 13:30 Morphine Sulfate (morphine) 1 mg Q4H PRN IV SEVERE PAIN LEVEL 7-10 Last administered on 03/31/19 14:20; Admin Dose 1 MG; Start 03/24/19 at 16:00 Oxycodone/ Acetaminophen (Percocet (5/ 325)) 1 tab Q6H PRN PO .SEVERE PAIN 7-10 Last administered on 03/31/19 12:06; Admin Dose 1 TAB; Start 03/24/19 at 15:00 Fluconazole (Diflucan) 200 mg DAILY PO Last administered on 03/31/19 09:36; Admin Dose 200 MG; Start 03/27/19 at 11:30 Senna (Senokot) 1 tab BID PO Last administered on 03/31/19 09:36; Admin Dose 1 TAB; Start 03/27/19 at 21:00 Docusate Sodium (Colace) 100 mg BID PRN PO CONSTIPATION; Start 03/27/19 at 15:30 Levalbuterol (Xopenex Neb) 1.25 mg Q4H RESP THERAPY HHN Last administered on 03/31/19 13:46; Admin Dose 1.25 MG; Start 03/30/19 at 21:00 Ipratropium [place] (Atrovent 0.02% (Neb)) 0.5 mg Q4H RESP THERAPY HHN Last administered on 03/31/19 13:45; Admin Dose 0.5 MG; Start 03/30/19 at 21:00 Methylprednisolone Sodium Succinate (Solu-Medrol) 40 mg Q8 IV Last administered on 03/31/19 14:20; Admin Dose 40 MG; Start 03/31/19 at 14:00 INA SCHAEFER MD March 31, 2019 15:50
[2019-03-31] MEDS ORDERED: ONDANSETRON INJ 8 MG in DEXTROSE 5% 50 ML IV PRN (17:00)
[2019-04-01] VITALS (12 sets, daily range): BP systolic 100–127; BP diastolic 59–74; PULSE 68–111; RESP 18–20
[2019-04-01] MEDS: LEVALBUTEROL (NEB) 1.25 MG/0.5 ML AMP HHN SCH ×6 (00:56→20:29)
[2019-04-01] MEDS: IPRATROPIUM (NEB) 0.5 MG/2.5 ML AMP HHN SCH ×6 (00:56→20:29)
[2019-04-01] MEDS: morphine 2 MG INJ IV PRN ×4 (02:04→19:58)
[2019-04-01] MEDS: METHYLPREDNISOLONE 40 MG INJ IV SCH ×3 (06:17→21:56)
[2019-04-01] MEDS: SENNA TAB PO SCH ×2 (09:09→21:56)
[2019-04-01] MEDS: FUROSEMIDE 20 MG TAB PO SCH (09:10)
[2019-04-01] MEDS: FLUCONAZOLE 200 MG TAB PO SCH (09:10)
--- NOTE | 2019-04-01 10:04 | RADRPT ---
Echocardiogram Report Patient Name: COLLETTE BOWMANPatient ID: [id number] : 1990 (28y 5m)Study Date: 03/29/2019 10:33:06 AM Gender: Kulwantcession #: [id number] Tech: KULWANT Location: [facility] Ref.Physician: JANETH LOGAN Height(Cm): 196 BSA: 2.11Weight(Kg): 81.6 Quality: AdequateOrder Physician: JANETH LOGAN Account #: Procedures: Echocardiographic Report: Transthoracic echocardiogram with complete 2D, M-Mode, and doppler examination. Indications: Sepsis. Measurements: 2D/M Mode Doppler Measurement Value Normal Range Measurement Value Normal Range LVIDd 2D 3.5 [ 4.2 - 5.8 ] cm AV Peak Gurinder 1.2 [ 100.0 - 170.0 ] cm/sec LVIDs 2D 2.5 [ 2.5 - 4.0 ] cm AV Peak PG 5.0 [ 2.0 - 9.0 ] mmHg LVPWd 2D 1.5 [ 0.6 - 1.0 ] cm LVOT Peak Gurinder 0.9 [ 70.0 - 110.0 ] cm/sec IVSd 2D 1.5 [ 0.6 - 1.0 ] cm LVOT Peak PG 4.0 [ 2.0 - 6.0 ] mmHg AoR Diam 2D 3.2 [ 2.6 - 3.4 ] cm Lat E` Gurinder 0.1 [ 10.0 - 15.0 ] cm/sec EF 2D 57.2 [ 52.0 - 72.0 ] percent TR Peak Gurinder 3.0 [ 100.0 - 280.0 ] cm/sec LA Dimen 2D 4.0 [ 3.0 - 4.0 ] cm TR Peak PG 37.0 mmHg PV Peak Gurinder 0.8 [ 40.0 - 80.0 ] cm/sec PV Peak PG 3.0 mmHg RVSP 57.0 [ 10.0 - 36.0 ] mmHg RA Pressure 20.0 mmHg Findings: Left Ventricle: Lower limits of normal systolic function. Normal left ventricular cavity size. Moderate concentric left ventricular hypertrophy. Paradoxical septal motion consistent with IVCD or bundle branch block. Ejection fraction is visually estimated at 45-50 %. Tissue Doppler/Mitral Doppler indices are indeterminate in this study due to the presence of tachycardia. Right Ventricle: Severe enlargement of right ventricle. Left Atrium: The left atrium is normal in size. Right Atrium: There is severe enlargement of right atrium. Atrial septum bowed toward the left, consistent with elevated right atrial pressures. Atrial Septum: Normal atrial septum. Mitral Valve: Mild mitral annular calcification. Trace mitral regurgitation. Aortic Valve: No significant aortic stenosis or insufficiency. Normal trileaflet aortic valve structure. Tricuspid Valve: The estimated Peak RVSP is 57 mmHg. This appears to be a TV replacement (stented) one cusp does not appear to move and one appears to be moderately thickened and does not appear to open fully. In the RVIT images the valves do not appear to close properly and there appears to be severe TR. There appears to be echogenic structures seen on both tricuspid valves consistent with vegetations. These abnormalities are also consistent with TV stenosis but the inflow is eccentric. Pulmonic Valve: Normal pulmonic valve appearance. Pericardium: Normal pericardium with no significant pericardial effusion. Aorta: Normal aortic root. IVC: Dilated IVC without respiratory collapse consistent with elevated right atrial pressure. Pulmonary Artery: Normal pulmonary artery size. Conclusions: Severe enlargement of right ventricle. There is severe enlargement of right atrium. Atrial septum bowed toward the left, consistent with elevated right atrial pressures. Lower limits of normal systolic function. Normal left ventricular cavity size. Moderate concentric left ventricular hypertrophy. Paradoxical septal motion consistent with IVCD or bundle branch block. Ejection fraction is visually estimated at 45-50 %. Tissue Doppler/Mitral Doppler indices are indeterminate in this study due to the presence of tachycardia. Mild mitral annular calcification. Trace mitral regurgitation. No significant aortic stenosis or insufficiency. Normal trileaflet aortic valve structure. The estimated Peak RVSP is 57 mmHg. This appears to be a TV replacement (stented) one cusp does not appear to move and one appears to be moderately thickened and does not appear to open fully. In the RVIT images the valves do not appear to close properly and there appears to be severe TR. There appears to be echogenic structures seen on both tricuspid valves consistent with vegetations. These abnormalities are also consistent with TV stenosis but the inflow is eccentric. Dilated IVC without respiratory collapse consistent with elevated right atrial pressure. Electronically Signed By: Andrea Upton 2019-04-01 10:03:15 PDT
--- NOTE | 2019-04-01 10:37 | CONS ---
Assessment/Plan Assessment/Plan Assessment/Plan (Daily) Assessment and recommendations; 1. Patient with history of endocarditis status post mitral valve replacement in the past admitted for recurrent endocarditis with septic emboli to lungs with with bilateral pneumonia as well. 2. 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 No further hemoptysis since yesterday afternoon. 3. History of active drug abuse. 4. History of anemia. Continue current supportive care. Consultation Date/Type/Reason Admit Date/Time March 17, 2019 at 15:13 Initial Consult Date 03/29/19 Type of Consult Pulmonary Patient is a 28-year-old male who was admitted on the of this month with complaints of fever and chills after using intravenous methamphetamine prior to admission. Patient is been diagnosed with endocarditis and is currently on appropriate antimicrobial regimen. CT chest was done yesterday which is showing what appears to be acute on chronic right-sided pulmonary embolic disease. Patient is complaining very scant hemoptysis and according to him is feeling much better since admission. Denies any chest pain, compress very mild shortness of breath. Past medical history; 1. History of sternotomy with valve replacement. Likely tricuspid valve. 2. History of active intravenous drug use. Medications; reviewed. Allergies; none. Social history; positive for drug abuse. Family history; noncontributory. Occupational history; patient is on disability. Review of systems; denies any headache, seizures, visual changes. Any chest pain, complains of very minimal cough with very minimal hemoptysis. Denies any abdominal pain, nausea vomiting. Any fever chills. Any back pain. Any skin changes. Appears very minimal weight loss. Denies any melena hematochezia. General exam; young male, awake alert, currently no distress. Laying com fortably in bed. Requesting Provider: ROBY MILLER MD Date/Time of Note DATE: 04/01/19 TIME: 10:34 24 HR Interval Summary Free Text/Dictation Patient's condition is stable. No further hemoptysis. Denies any shortness of breath, chest pain. General exam; young male, awake alert, currently in no distress. Exam/Review of Systems Exam Vitals Vital Signs Date Temp Pulse Resp B/P (MAP) Pulse Ox O2 O2 Flow FiO2 Time Delivery Rate 04/01/19 103 08:29 04/01/19 20 96 Nasal 3.0 08:12 Cannula 04/01/19 98.3 107/67 07:26 (80) 04/01/19 00:56 Intake and Output 03/31/19 03/31/19 04/01/19 1515:00 23:00 07:00 IntakeIntake Total 410 ml 1880 ml 800 ml OutputOutput Total 1150 ml 1850 ml 2000 ml BalanceBalance -740 ml 30 ml -1200 ml Exam H EENT exam; supple neck, no JVD. No lymphadenopathy. Midline trachea. No thyromegaly. Patient has fair dentition. No neck masses. Chest exam; diminished but clear breath sounds. S1-S2 audible, no murmurs. There is a well-healed sternal scar. Abdomen exam; soft, nontender. No organomegaly. Bowel sounds are audible. Extremity exam; no peripheral edema clubbing. TARGET MAN exam; no focal deficit. Results Result Diagram: 04/01/19 0451 03/31/19 0546 Results 24hrs Laboratory Tests Test 04/01/19 04:51 White Blood Count 4.8 # Red Blood Count 3.05 L Hemoglobin 8.0 L Hematocrit 25.4 L Mean Corpuscular Volume 83.3 Mean Corpuscular Hemoglobin 26.2 L Mean Corpuscular Hemoglobin Concent 31.5 L Red Cell Distribution Width 14.7 H Platelet Count 297 Mean Platelet Volume 9.6 Immature Granulocytes % 0.600 H Neutrophils % 87.8 H Lymphocytes % 10.6 L Monocytes % 1.0 Eosinophils % 0.0 Basophils % 0.0 Nucleated Red Blood Cells % 0.0 Immature Granulocytes # 0.030 Neutrophils # 4.2 Lymphocytes # 0.5 L Monocytes # 0.1 L Eosinophils # 0.0 Basophils # 0.0 Nucleated Red Blood Cells # 0.0 Procalcitonin 0.62 H Medications Medication Current Medications IV Flush (NS 3 ml) 3 ml PER PROTOCOL IV ; Start 03/17/19 at 15:00 Furosemide (Lasix) 20 mg DAILY PO Last administered on 04/01/19at 09:10; Admin Dose 20 MG; Start 03/20/19 at 09:00 Ceftriaxone Sodium 50 ml @ 100 mls/hr Q24H IVPB Last administered on 03/31/19at 11:35; Admin Dose 100 MLS/HR; Start 03/23/19 at 11:00 Guaifenesin/ Dextromethorphan (Robitussin Dm Liquid Cup) 5 ml Q4H PRN PO COUGH Last administered on 03/31/19 19:42; Admin Dose 5 ML; Start 03/23/19 at 22:00 Phenol (Cepastat Lozenge) 1 lozenge Q1H PRN MT COUGH Last administered on 03/31/19 19:43; Admin Dose 1 LOZENGE; Start 03/24/19 at 13:30 Morphine Sulfate (morphine) 1 mg Q4H PRN IV SEVERE PAIN LEVEL 7-10 Last administered on 04/01/19 09:18; Admin Dose 1 MG; Start 03/24/19 at 16:00 Oxycodone/ Acetaminophen (Percocet (5/ 325)) 1 tab Q6H PRN PO .SEVERE PAIN 7-10 Last administered on 03/31/19 12:06; Admin Dose 1 TAB; Start 03/24/19 at 15:00 Fluconazole (Diflucan) 200 mg DAILY PO Last administered on 04/01/19 09:10; Admin Dose 200 MG; Start 03/27/19 at 11:30 Senna (Senokot) 1 tab BID PO Last administered on 04/01/19 09:09; Admin Dose 1 TAB; Start 03/27/19 at 21:00 Docusate Sodium (Colace) 100 mg BID PRN PO CONSTIPATION; Start 03/27/19 at 15:30 Levalbuterol (Xopenex Neb) 1.25 mg Q4H RESP THERAPY HHN Last administered on 04/01/19 08:12; Admin Dose 1.25 MG; Start 03/30/19 at 21:00 Ipratropium [place] (Atrovent 0.02% (Neb)) 0.5 mg Q4H RESP THERAPY HHN Last administered on 04/01/19 08:12; Admin Dose 0.5 MG; Start 03/30/19 at 21:00 Methylprednisolone Sodium Succinate (Solu-Medrol) 40 mg Q8 IV Last administered on 04/01/19 06:17; Admin Dose 40 MG; Start 03/31/19 at 14:00 Ondansetron HCl 8 mg/Dextrose 54 ml @ 108 mls/hr Q6H PRN IV NAUSEA AND/OR VOMITING Last administered on 03/31/19at 21:03; Admin Dose 108 MLS/HR; Start 03/31/19 at 17:00 CARLOS TRIVEDI April 01, 2019 10:37
[2019-04-01] MEDS: CEFTRIAXONE 2 GM/50 ML (PMX) 50 ML IVPB SCH (11:59)
[2019-04-01] MEDS: GUAIFENESIN/DM 5ML CUP PO PRN ×2 (14:15→19:10)
[2019-04-01] MEDS: CEPASTAT LOZENGE MT PRN ×2 (14:15→19:11)
--- NOTE | 2019-04-01 16:10 | PN ---
Date/Time of Note Date/Time of Note DATE: 04/01/19 TIME: 15:53 Assessment/Plan VTE Prophylaxis Risk score (from Ns)>0 risk: 3 SCD applied (from [facility]s): No SCD contraindicated: other (not contraindicated) Pharmacological prophylaxis: apixaban Lines/Catheters [facility]from [facility] Saline Lock Urinary Cath still in place: No Assessment/Plan Assessment/Plan 28 yo man with h/o valve replacements and PPM following endocarditis in 2017; and chronic pulmonary embolism who presented with fever, tachypnea, and hypoxia with pulmonary infiltrates following IV meth use #Tricuspid valve vegetations? - Patient had possible tricuspid valve vegetations last admission also. MADINA was indeterminate. - He doesn't seem to meet Nye criteria for endocarditis. - Will defer antibiotics to ID. Current recommendation is a 42 day course of ceftriaxone (until May 04) for likely endocarditis. # Acute hypoxic respiratory failure with fever/sepsis - Secondary to chronic pulmonary embolism, noncompliant with Eliquis after last hospital discharge. - antiphospholipid antibody and protein C was ordered, although hypercoagulable workup is usually not done during treatment of active thrombosis. - Continue Eliquis 5 mg twice daily. Likely will need indefinite antico agulation. - Patient has been requiring 2L oxygen at rest while inpatient. However, note that last time he left AMA he was living at his mother's house somewhat functional on room air for over a month. - Continue antitussives as needed for cough #IVC filter - IVC filter was placed last admission although not indicated. It's developing a little thrombus on it which is typical. - Ordered IVC removal now. # CLAUDIA: Resolving now Dispo: Will need home oxygen and oral Eliquis after discharge. Tentative plan to treat for endocarditis per ID. Result Diagram: 04/01/19 0451 03/31/19 0546 Subjective 24 Hr Interval Summary Free Text/Dictation Eliquis was held for "hemoptysis" despite well characterized pulmonary embolisms on CT. Will resume. Otherwise patient doing well. Saturating well on 2L NC. Exam/Review of Systems Exam Vitals Vital Signs Date Temp Pulse Resp B/P (MAP) Pulse Ox O2 O2 Flow FiO2 Time Delivery Rate 04/01/19 98.0 100 20 127/74 94 15:33 (91) 04/01/19 Nasal 3.0 08:12 Cannula 04/01/19 00:56 Intake and Output 03/31/19 03/31/19 04/01/19 1515:00 23:00 07:00 IntakeIntake Total 410 ml 1880 ml 800 ml OutputOutput Total 1150 ml 1850 ml 2000 ml BalanceBalance -740 ml 30 ml -1200 ml Exam Gen: Well appearing man awake, alert, lying in bed. Eyes: Non icteric HEENT: Moist mucous membranes, clear oropharynx Card: Regular rate and rhythm, no murmurs Pulm: Coarse lung sounds bilaterally but no wheezing. Breathing comfortably on 2L nasal cannula. Abd: Soft, nondistended, nontender. Ext: No cyanosis/clubbing/edema Results Results 24hrs Laboratory Tests Test 04/01/19 04:51 White Blood Count 4.8 # Red Blood Count 3.05 L Hemoglobin 8.0 L Hematocrit 25.4 L Mean Corpuscular Volume 83.3 Mean Corpuscular Hemoglobin 26.2 L Mean Corpuscular Hemoglobin Concent 31.5 L Red Cell Distribution Width 14.7 H Platelet Count 297 Mean Platelet Volume 9.6 Immature Granulocytes % 0.600 H Neutrophils % 87.8 H Lymphocytes % 10.6 L Monocytes % 1.0 Eosinophils % 0.0 Basophils % 0.0 Nucleated Red Blood Cells % 0.0 Immature Granulocytes # 0.030 Neutrophils # 4.2 Lymphocytes # 0.5 L Monocytes # 0.1 L Eosinophils # 0.0 Basophils # 0.0 Nucleated Red Blood Cells # 0.0 Procalcitonin 0.62 H Medications Medication Current Medications IV Flush (NS 3 ml) 3 ml PER PROTOCOL IV ; Start 03/17/19 at 15:00 Furosemide (Lasix) 20 mg DAILY PO Last administered on 04/01/19at 09:10; Admin Dose 20 MG; Start 03/20/19 at 09:00 Ceftriaxone Sodium 50 ml @ 100 mls/hr Q24H IVPB Last administered on 04/01/19at 11:59; Admin Dose 100 MLS/HR; Start 03/23/19 at 11:00 Guaifenesin/ Dextromethorphan (Robitussin Dm Liquid Cup) 5 ml Q4H PRN PO COUGH Last administered on 04/01/19at 14:15; Admin Dose 5 ML; Start 03/23/19 at 22:00 Phenol (Cepastat Lozenge) 1 lozenge Q1H PRN MT COUGH Last administered on 04/01/19 14:15; Admin Dose 1 LOZENGE; Start 03/24/19 at 13:30 Morphine Sulfate (morphine) 1 mg Q4H PRN IV SEVERE PAIN LEVEL 7-10 Last administered on 04/01/19 14:29; Admin Dose 1 MG; Start 03/24/19 at 16:00 Oxycodone/ Acetaminophen (Percocet (5/ 325)) 1 tab Q6H PRN PO .SEVERE PAIN 7-10 Last administered on 03/31/19 12:06; Admin Dose 1 TAB; Start 03/24/19 at 15:00 Fluconazole (Diflucan) 200 mg DAILY PO Last administered on 04/01/19 09:10; Admin Dose 200 MG; Start 03/27/19 at 11:30 Senna (Senokot) 1 tab BID PO Last administered on 04/01/19 09:09; Admin Dose 1 TAB; Start 03/27/19 at 21:00 Docusate Sodium (Colace) 100 mg BID PRN PO CONSTIPATION; Start 03/27/19 at 15:30 Levalbuterol (Xopenex Neb) 1.25 mg Q4H RESP THERAPY HHN Last administered on 04/01/19 08:12; Admin Dose 1.25 MG; Start 03/30/19 at 21:00 Ipratropium [place] (Atrovent 0.02% (Neb)) 0.5 mg Q4H RESP THERAPY HHN Last administered on 04/01/19 14:07; Admin Dose 0.5 MG; Start 03/30/19 at 21:00 Methylprednisolone Sodium Succinate (Solu-Medrol) 40 mg Q8 IV Last administered on 04/01/19 14:15; Admin Dose 40 MG; Start 03/31/19 at 14:00 Ondansetron HCl 8 mg/Dextrose 54 ml @ 108 mls/hr Q6H PRN IV NAUSEA AND/OR VOMITING Last administered on 03/31/19 21:03; Admin Dose 108 MLS/HR; Start 03/31/19 at 17:00 Apixaban (Eliquis) 5 mg BID PO ; Start 04/01/19 at 21:00; Status UNV ALEX CLARKE MD April 01, 2019 16:10
--- NOTE | 2019-04-01 19:02 | PN ---
DATE: 04/01/2019 SUBJECTIVE: The patient states he is experiencing chest pain not necessarily pleuritic in nature. S tates he has had some hemoptysis in the last day or 2. The patient denies fevers or night sweats. No complaints of abdominal pain. OBJECTIVE: GENERAL: The patient is a well-developed, but chronically appearing male who is in some pain at this time. VITAL SIGNS: Temperature 98, pulse 102 per minute and regular, respirations 19, blood pressure 127/7 4, pulse oximetry 95% on 3 liters by nasal cannula. SKIN: No ecchymosis or petechiae. There are multiple tattoos as well as some small abscesses sugges ting skin injections. HEENT: Normocephalic. No evidence of trauma. The pupils are equal, round and reactive to light and accommodation. Sclerae are nonicteric. Oral mucosa is moist without lesions. Tongue is well papil lated. No gingival hyperplasia, no hypertrophy of Waldeyer's ring, no Bateman spots seen. NECK: Supple. No jugular venous distention or thyroid enlargement. CHEST: Decreased breath sounds throughout, but no rhonchi, wheezes, rales or rubs. The patient does appear to be splinting somewhat on the right side. HEART: Sinus tachycardia. No S3 or S4 or murmurs. No rubs. ABDOMEN: Flat and soft. I cannot appreciate spleen tip. There is no ascites. EXTREMITIES: No clubbing or cyanosis. No palpable cords or Homans sign. NEUROLOGIC: Normal. LABORATORY DATA: White count is 4800 with an absolute neutrophil count of 4200, hemoglobin 8, hemato crit 25.4 and platelet count 297,000. Sodium 137, potassium 4.7, creatinine 1.15, BUN 28. Urinalysis on 03/26/2019 does show 3+ hemoglobin. ASSESSMENT: 1. 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 2. Pulmonary emboli. 3. Pulmonary infiltrates, may be related to septic emboli. DISCUSSION: The patient continues on antibiotics and white count is dropping. He is receiving antic oagulation with apixaban, which may be contributing to the patient's hemoptysis. There has been a slow decrease in hemoglobin. At the same time, there has not obvious increase in in direct bilirubin, but the patient could have some degree of hemolysis due to red blood cell fragmenta tion due to endocarditis. We will obtain pro time, PTT and fibrinogen. We will also repeat liver functions including an LDH an d haptoglobin. Dictated By: BONIFACIO BANKS MD SR/NTS Conf#: [id number] DID#: [id number] CC: ROBY MILLER MD; ALEX CLARKE MD;*EndCC*
[2019-04-01] MEDS: APIXABAN 5 MG TABLET PO SCH (21:56)
[2019-04-02] VITALS (12 sets, daily range): BP systolic 112–124; BP diastolic 60–80; PULSE 78–110; RESP 2–20
[2019-04-02] MEDS: LEVALBUTEROL (NEB) 1.25 MG/0.5 ML AMP HHN SCH ×6 (01:10→21:02)
[2019-04-02] MEDS: IPRATROPIUM (NEB) 0.5 MG/2.5 ML AMP HHN SCH ×6 (01:10→21:02)
[2019-04-02] MEDS: morphine 2 MG INJ IV PRN ×5 (01:45→23:52)
[2019-04-02] MEDS: METHYLPREDNISOLONE 40 MG INJ IV SCH ×3 (06:51→21:30)
--- NOTE | 2019-04-02 07:19 | CONS ---
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 usual suspect in IVDA is staph or strep but pseudomonas and benjamin can also be seen continue with vanco/zosyn at present fevers have improved and WBC is improved today I will order WBC scan as pt c/o pain over the pacer site I will also order u/s of pacer site to see if there is fluid present 03/20 - GPC growing in all 3 sets of blood cx from 03/17, await ID MRSA in nasal continue with vanco/zosyn pt was seen in this hospital last month under a different MRN and he was evaluated for endocarditis at that time he had corynebacterium in two different sets of blood cx and had a MADINA which was neg for vegetations he was give two weeks of ceftriaxone for pneumonia, they also wondered if he had septic emboli or PE at that time he got an IVC filter but were planning to remove it because he did not have a PE but he left AMA u/s of around pacer site was neg for fluid collection WBC scan is pending 03/21 - WBC scan only has activity in the lung s.aureus is in the blood repeat blood cx on 03/18 are NGTD, repeat again continue with vanco, d/c zosyn 03/24- MSSA in blood, vanco stopped yesterday and switched to ceftriaxone 2gm q24 hours repeat blood cx all remain NGTD 03/25 - low grade temp noted, to repeat CXR procalcitonin was greatly improved but will repeat in a.m. continue with just ceftriaxone, all repeat blood cx are NGTD 03/26 - procalcitonin is pending but CXR from yesterday was slightly improved WBC is still elevated and higher today, clinically pt is much improved I saw that in january he had a marginal positive IgM cocci titer, to repeat this if procalcitonin is higher to broaden pulmonary coverage 03/27 - procalcitonin continues to improve, doubt he has pneumonia failing current therapy await repeat cocci titers to repeat blood cx again x1 03/28 - stable 03/29 - repeat blood cx remain neg continue with ceftriaxone 03/30 - WBC has normalized since back on anti-coagulation day of ceftriaxone 03/31 - CT abd/pelv shows clot above the IVC filter and improved LL infiltrates 04/02 - stable day of ceftriaxone 2) IVDA pt states he was tested in the last 1-2 months and was neg for HIV and he does not share his needles no hx of hepatitis either I will check into his prior hospitalization here that if it exists is under another MR# 5/ - pt has another MRN and his HIV was neg in february he had corynebacterium in two different sets of blood cx then 3) pulmonary infiltrates PACS system is not working on two different computers, I need to see his CT's and CXR to see if these are c/w septic emboli or not vanco/zosyn should cover if he has pneumonia rather than septic emboli procalcitonin has been ordered also 03/20 - his prior chest CT last month shows that he has waxing and waning of pulmonary infiltrates and his cavitary lesions have improved slightly his pulmonary infiltrates are patchy and somewhat large which would be atypical for septic emboli his procalcitonin is very high but bacteremia will also elevated it continue with vanco/zosyn will check for atypical organisms with serology 03/21 - pt is able to bring up some phlegm will order cx s.aureus is likely the culprit continue with vanco, d/c zosyn but add levaquin for atypical coverage 03/24 - sputum cx has c.alb only continue with levaquin and ceftriaxone, legionella was neg 03/25 - mycoplasma IgG was elevated but no IgM sent and at this time results would be back after he has finished his levaquin day 03/11 of levaquin 03/26 - day 6/ of levaquin CXR is improved check cocci titers since he had an equivocal IgM titer in january 201903/27 - today is last day of his oral levaquin await cocci titers 03/29 - pt has new areas of probable septic emboli pt had his lovenox stopped and is now re-started cause of new septic emboli are either due to ongoing infection of TV, which would indicate he needs surgery or due to a hypercoagulable state and in SBE the development of APLA can occur so will order this test in a.m. I will also repeat LE venous dopplers (pt already has an IVC filter in 03/30 - venous dopplers to UE and LE were negative no swelling of legs WBC has normalized since anti-coagulation was started await repeat 2d echo 03/31 - hemoptysis noted but minimal decrease in Hgb continue with anti-coagulation repeat procalcitonin in a.m., improved LL infiltrates noted on CT abd/pelv 04/02 - decrease in procalcitonin Hgb now at 7.9 4) ARF 03/21 this is improving 03/24 - resolved 5) leukocytosis 03/26 - pt is clinically improved one of his legs is slightly swollen but not tender and he had a neg LE venous doppler on 03/17 no diarrhea, so c.dif is unlikely no urinary c/o but will repeat u/a and urine cx will check cocci titers since pt had an equivocal IgM titer in january 2019 check RPR pt had a neg HIV test in january 2019 and HIV would not be cause of leukocytosis 03/27 - increasing alk phos, but pt is asymptomatic, will order RUQ u/s increasing WBC but decreasing procalcitonin, repeat both in a.m. 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 Consultation Date/Type/Reason Admit Date/Time March 17, 2019 at 15:13 Initial Consult Date 03/19/19 Type of Consult ID Requesting Provider: ROBY MILLER MD Date/Time of Note DATE: 04/02/19 TIME: 07:15 24 HR Interval Summary Free Text/Dictation pt states he is coughing less blood, just specks of it now on NC for O2 at 3L no N, V less pain to chest, no mostly on left upper chest area no D eating ok Exam/Review of Systems Exam Vitals Vital Signs Date Temp Pulse Resp B/P (MAP) Pulse Ox O2 O2 Flow FiO2 Time Delivery Rate 04/02/19 95 04:49 04/02/19 96 3.0 04:38 04/02/19 98.4 18 123/75 04:00 (91) 04/02/19 Nasal 01:10 Cannula 04/01/19 00:56 Intake and Output 04/01/19 04/01/19 04/02/19 1515:00 23:00 07:00 IntakeIntake Total 950 ml 1200 ml OutputOutput Total 1250 ml 2200 ml BalanceBalance -300 ml -1000 ml Constitutional: alert, oriented Eyes: nl sclera Respiratory: clear to auscultation Cardiovascular: regular rate and rhythm Gastrointestinal: soft, non-tender Results Result Diagram: 04/02/19 0512 04/02/19 0512 Results 24hrs Laboratory Tests Test 04/02/19 05:12 White Blood Count 12.5 #H Red Blood Count 2.99 L Hemoglobin 7.9 L Hematocrit 25.4 L Mean Corpuscular Volume 84.9 Mean Corpuscular Hemoglobin 26.4 L Mean Corpuscular Hemoglobin Concent 31.1 L Red Cell Distribution Width 15.2 H Platelet Count 353 Mean Platelet Volume 9.8 Immature Granulocytes % 1.100 H Neutrophils % 91.9 H Lymphocytes % 5.6 L Monocytes % 1.3 Eosinophils % 0.0 Basophils % 0.1 Nucleated Red Blood Cells % 0.0 Immature Granulocytes # 0.140 H Neutrophils # 11.4 H Lymphocytes # 0.7 L Monocytes # 0.2 L Eosinophils # 0.0 Basophils # 0.0 Nucleated Red Blood Cells # 0.0 Prothrombin Time 17.0 H Prothrombin Time Ratio 1.3 INR International Normalized Ratio 1.37 Activated Partial Thromboplast Time 39.7 H Fibrinogen 404.0 Sodium Level 136 Potassium Level 5.0 Chloride Level 99 Carbon Dioxide Level 29 Anion Gap 8 Blood Urea Nitrogen 35 H Creatinine 0.98 Est Glomerular Filtrat Rate mL/min > 60 Glucose Level 165 Calcium Level 8.8 Phosphorus Level 4.0 Magnesium Level 1.8 Total Bilirubin 0.4 Direct Bilirubin 0.00 Indirect Bilirubin 0.4 Aspartate Amino Transf (AST/SGOT) 37 Alanine Aminotransferase (ALT/SGPT) 20 Alkaline Phosphatase 229 H Total Protein 8.9 H Albumin 3.5 Globulin 5.40 H Albumin/Globulin Ratio 0.64 Medications Medication Current Medications IV Flush (NS 3 ml) 3 ml PER PROTOCOL IV ; Start 03/17/19 at 15:00 Furosemide (Lasix) 20 mg DAILY PO Last administered on 04/01/19at 09:10; Admin Dose 20 MG; Start 03/20/19 at 09:00 Ceftriaxone Sodium 50 ml @ 100 mls/hr Q24H IVPB Last administered on 04/01/19at 11:59; Admin Dose 100 MLS/HR; Start 03/23/19 at 11:00 Guaifenesin/ Dextromethorphan (Robitussin Dm Liquid Cup) 5 ml Q4H PRN PO COUGH Last administered on 04/01/19 19:10; Admin Dose 5 ML; Start 03/23/19 at 22:00 Phenol (Cepastat Lozenge) 1 lozenge Q1H PRN MT COUGH Last administered on 04/01/19 19:11; Admin Dose 1 LOZENGE; Start 03/24/19 at 13:30 Morphine Sulfate (morphine) 1 mg Q4H PRN IV SEVERE PAIN LEVEL 7-10 Last administered on 04/02/19 06:52; Admin Dose 1 MG; Start 03/24/19 at 16:00 Oxycodone/ Acetaminophen (Percocet (5/ 325)) 1 tab Q6H PRN PO .SEVERE PAIN 7-10 Last administered on 03/31/19 12:06; Admin Dose 1 TAB; Start 03/24/19 at 15:00 Fluconazole (Diflucan) 200 mg DAILY PO Last administered on 04/01/19 09:10; Admin Dose 200 MG; Start 03/27/19 at 11:30 Senna (Senokot) 1 tab BID PO Last administered on 04/01/19 21:56; Admin Dose 1 TAB; Start 03/27/19 at 21:00 Docusate Sodium (Colace) 100 mg BID PRN PO CONSTIPATION; Start 03/27/19 at 15:30 Levalbuterol (Xopenex Neb) 1.25 mg Q4H RESP THERAPY HHN Last administered on 04/02/19 01:10; Admin Dose 1.25 MG; Start 03/30/19 at 21:00 Ipratropium [place] (Atrovent 0.02% (Neb)) 0.5 mg Q4H RESP THERAPY HHN Last administered on 04/02/19 01:10; Admin Dose 0.5 MG; Start 03/30/19 at 21:00 Methylprednisolone Sodium Succinate (Solu-Medrol) 40 mg Q8 IV Last administered on 04/02/19 06:51; Admin Dose 40 MG; Start 03/31/19 at 14:00 Ondansetron HCl 8 mg/Dextrose 54 ml @ 108 mls/hr Q6H PRN IV NAUSEA AND/OR VOMITING Last administered on 03/31/19at 21:03; Admin Dose 108 MLS/HR; Start 03/31/19 at 17:00 Apixaban (Eliquis) 5 mg BID PO Last administered on 04/01/19at 21:56; Admin Dose 5 MG; Start 04/01/19 at 21:00 JANETH LOGAN MD April 02, 2019 07:19
[2019-04-02] MEDS: FLUCONAZOLE 200 MG TAB PO SCH (08:12)
[2019-04-02] MEDS: FUROSEMIDE 20 MG TAB PO SCH (08:12)
[2019-04-02] MEDS: APIXABAN 5 MG TABLET PO SCH (08:12)
[2019-04-02] MEDS: SENNA TAB PO SCH ×2 (08:12→21:00)
--- NOTE | 2019-04-02 09:57 | CONS ---
Assessment/Plan Assessment/Plan Assessment/Plan (Daily) Assessment and recommendations; 1. 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 With septic embolism to lungs. Embolism is likely from bacterial vegetations rather than thrombo-embolic in etiology. 2. Hemoptysis from possible underlying vasculitis as well as necrotizing pneumonia, patient has responded significantly to Solu-Medrol with disc ontinuation of anticoagulation. 3. 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 4. Negative lower extremity ultrasound for DVT. Continue current supportive care. Steroid taper in 24 hours to oral prednisone. Continue to hold anticoagulation. Consultation Date/Type/Reason Admit Date/Time March 17, 2019 at 15:13 Initial Consult Date 03/29/19 Type of Consult Pulmonary Patient is a 28-year-old male who was admitted on the of this month with complaints of fever and chills after using intravenous methamphetamine prior to admission. Patient is been diagnosed with endocarditis and is currently on appropriate antimicrobial regimen. CT chest was done yesterday which is showing what appears to be acute on chronic right-sided pulmonary embolic disease. Patient is complaining very scant hemoptysis and according to him is feeling much better since admission. Denies any chest pain, compress very mild shortnes s of breath. Past medical history; 1. History of sternotomy with valve replacement. Likely tricuspid valve. 2. History of active intravenous drug use. Medications; reviewed. Allergies; none. Social history; positive for drug abuse. Family history; noncontributory. Occupational history; patient is on disability. Review of systems; denies any headache, seizures, visual changes. Any chest brock n, complains of very minimal cough with very minimal hemoptysis. Denies any abdominal pain, nausea vomiting. Any fever chills. Any back pain. Any skin changes. Appears very minimal weight loss. Denies any melena hematochezia. General exam; young male, awake alert, currently no distress. Laying comfortably in bed. Requesting Provider: ROBY MILLER MD Date/Time of Note DATE: 04/02/19 TIME: 09:54 24 HR Interval Summary Free Text/Dictation Patient's condition is stable. Had a very scant episode of hemoptysis last night without any further recurrence. Denies any shortness of breath, chest pain, coughing. General exam; young male, awake alert, currently in no distress. Exam/Review of Systems Exam Vitals Vital Signs Date Temp Pulse Resp B/P (MAP) Pulse Ox O2 O2 Flow FiO2 Time Delivery Rate 04/02/19 78 08:27 04/02/19 Nasal 3.0 08:00 Cannula 04/02/19 98.3 2 124/77 94 07:48 (93) 04/01/19 00:56 Intake and Output 04/01/19 04/01/19 04/02/19 1515:00 23:00 07:00 IntakeIntake Total 950 ml 1200 ml OutputOutput Total 1250 ml 2200 ml BalanceBalance -300 ml -1000 ml Exam H EENT exam; supple neck, no JVD. No lymphadenopathy. Midline trachea. No thyromegaly. Patient has fair dentition. No neck masses. Chest exam; clear to auscultation. There is a well-healed sternal scar. Regular rhythm. No murmurs. Abdomen exam; soft, no organomegaly. Nontender. Bowel sounds audible. Extremity exam; no peripheral edema clubbing. [employer] exam; no focal deficit. Results Result Diagram: 04/02/19 0512 04/02/19 0512 Results 24hrs Laboratory Tests Test 04/02/19 05:12 White Blood Count 12.5 #H Red Blood Count 2.99 L Hemoglobin 7.9 L Hematocrit 25.4 L Mean Corpuscular Volume 84.9 Mean Corpuscular Hemoglobin 26.4 L Mean Corpuscular Hemoglobin Concent 31.1 L Red Cell Distribution Width 15.2 H Platelet Count 353 Mean Platelet Volume 9.8 Immature Granulocytes % 1.100 H Neutrophils % 91.9 H Lymphocytes % 5.6 L Monocytes % 1.3 Eosinophils % 0.0 Basophils % 0.1 Nucleated Red Blood Cells % 0.0 Immature Granulocytes # 0.140 H Neutrophils # 11.4 H Lymphocytes # 0.7 L Monocytes # 0.2 L Eosinophils # 0.0 Basophils # 0.0 Nucleated Red Blood Cells # 0.0 Prothrombin Time 17.0 H Prothrombin Time Ratio 1.3 INR International Normalized Ratio 1.37 Activated Partial Thromboplast Time 39.7 H Fibrinogen 404.0 Sodium Level 136 Potassium Level 5.0 Chloride Level 99 Carbon Dioxide Level 29 Anion Gap 8 Blood Urea Nitrogen 35 H Creatinine 0.98 Est Glomerular Filtrat Rate mL/min > 60 Glucose Level 165 Calcium Level 8.8 Phosphorus Level 4.0 Magnesium Level 1.8 Total Bilirubin 0.4 Direct Bilirubin 0.00 Indirect Bilirubin 0.4 Aspartate Amino Transf (AST/SGOT) 37 Alanine Aminotransferase (ALT/SGPT) 20 Alkaline Phosphatase 229 H Lactate Dehydrogenase 751 H Total Protein 8.9 H Albumin 3.5 Globulin 5.40 H Albumin/Globulin Ratio 0.64 Medications Medication Current Medications IV Flush (NS 3 ml) 3 ml PER PROTOCOL IV ; Start 03/17/19 at 15:00 Furosemide (Lasix) 20 mg DAILY PO Last administered on 04/02/19 08:12; Admin Dose 20 MG; Start 03/20/19 at 09:00 Ceftriaxone Sodium 50 ml @ 100 mls/hr Q24H IVPB Last administered on 04/01/19 11:59; Admin Dose 100 MLS/HR; Start 03/23/19 at 11:00 Guaifenesin/ Dextromethorphan (Robitussin Dm Liquid Cup) 5 ml Q4H PRN PO COUGH Last administered on 04/01/19 19:10; Admin Dose 5 ML; Start 03/23/19 at 22:00 Phenol (Cepastat Lozenge) 1 lozenge Q1H PRN MT COUGH Last administered on 04/01/19 19:11; Admin Dose 1 LOZENGE; Start 03/24/19 at 13:30 Morphine Sulfate (morphine) 1 mg Q4H PRN IV SEVERE PAIN LEVEL 7-10 Last administered on 04/02/19 06:52; Admin Dose 1 MG; Start 03/24/19 at 16:00 Oxycodone/ Acetaminophen (Percocet (5/ 325)) 1 tab Q6H PRN PO .SEVERE PAIN 7-10 Last administered on 03/31/19 12:06; Admin Dose 1 TAB; Start 03/24/19 at 15:00 Fluconazole (Diflucan) 200 mg DAILY PO Last administered on 04/02/19 08:12; Admin Dose 200 MG; Start 03/27/19 at 11:30 Senna (Senokot) 1 tab BID PO Last administered on 04/02/19 08:12; Admin Dose 1 TAB; Start 03/27/19 at 21:00 Docusate Sodium (Colace) 100 mg BID PRN PO CONSTIPATION; Start 03/27/19 at 15:30 Levalbuterol (Xopenex Neb) 1.25 mg Q4H RESP THERAPY HHN Last administered on 04/02/19 09:13; Admin Dose 1.25 MG; Start 03/30/19 at 21:00 Ipratropium [place] (Atrovent 0.02% (Neb)) 0.5 mg Q4H RESP THERAPY HHN Last administered on 04/02/19 09:13; Admin Dose 0.5 MG; Start 03/30/19 at 21:00 Methylprednisolone Sodium Succinate (Solu-Medrol) 40 mg Q8 IV Last administered on 04/02/19 06:51; Admin Dose 40 MG; Start 03/31/19 at 14:00 Ondansetron HCl 8 mg/Dextrose 54 ml @ 108 mls/hr Q6H PRN IV NAUSEA AND/OR VOMITING Last administered on 03/31/19 21:03; Admin Dose 108 MLS/HR; Start 03/31/19 at 17:00 Apixaban (Eliquis) 5 mg BID PO Last administered on 04/02/19 08:12; Admin Dose 5 MG; Start 04/01/19 at 21:00 CARLOS TRIVEDI April 02, 2019 09:57
[2019-04-02] MEDS: CEFTRIAXONE 2 GM/50 ML (PMX) 50 ML IVPB SCH (11:30)
--- NOTE | 2019-04-02 14:04 | PN ---
DATE: 04/02/2019 SUBJECTIVE: The patient continues to complain of diffuse pain as well as cough. The patient has not had any shaking chills. OBJECTIVE: GENERAL: The patient is a well-developed, but ill-appearing male who is in some discomfort. VITAL SIGNS: Temperature 97.7 orally, pulse 92 per minute and regular, respirations 20, blood pressu re 116/80 and pulse oximetry is 98% on room air. SKIN: There are scattered tattoos. No ecchymosis, petechiae or rashes. Skin is pale. HEENT: Normocephalic. No evidence of trauma. Pupils are equal, round, reactive to light and accomm odation. Sclerae are nonicteric. Oral mucosa is moist without lesions. Oral mucosa and conjunctiva e are pale. NECK: Supple. No jugular venous distention or thyroid enlargement. CHEST: Clear to auscultation and percussion. No rhonchi, wheezes, rales or rubs. HEART: Regular sinus rhythm. No S3 or S4. No rubs. ABDOMEN: Soft. No masses or ascites. EXTREMITIES: No clubbing. No edema or cyanosis. No palpable cords or Homans sign. NEUROLOGIC: Normal. LABORATORY DATA: White blood cell count today is 12,500, hemoglobin 7.9, hematocrit 25.4 and platele t count 353,000. Sodium 136, potassium 5, creatinine 0.98. Total bilirubin 0.5, direct bilirubin 0. LDH is 751. Pro time is 17 seconds, INR 1.37, PTT is 39.7 seconds, fibrinogen 404. ASSESSMENT: 1. 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 2. Pulmonary emboli. 3. Pulmonary infiltrates which may be related to septic emboli. The patient does not have obvious DIC. His hemoglobin, however, does continue to drift down. There is no obvious increase blood loss while taking apixaban. We will check in erythropoietin level on blood drawn this a.m. and start erythropoietin 10,000 units 3 times a week. Dictated By: BONIFACIO BANKS MD SR/NTS Conf#: [id number] DID#: [id number] CC: ALEX CLARKE MD; ROBY MILLER MD;*End*
--- NOTE | 2019-04-02 15:26 | PN ---
Date/Time of Note Date/Time of Note DATE: 04/02/19 TIME: 15:22 Assessment/Plan VTE Prophylaxis Risk score (from Ns)>0 risk: 2 SCD applied (from [place]): No SCD contraindicated: other (no) Pharmacological prophylaxis: heparin Lines/Catheters IV Catheter Type (from [facility]): [place] Urinary Cath still in place: No Assessment/Plan Assessment/Plan 28 yo man with h/o valve replacements and PPM following endocarditis in 2017; and chronic pulmonary embolism who presented with fever, tachypnea, and hypoxia with pulmonary infiltrates following IV meth use #IVC filter thrombus. - IVC filter placed last admission (not indicated at the time and not indicated now). - Now filter has developed a 1x1 cm thrombus at the tip, which is a contraindication for removal. - Will start heparin gtt for 5-[address] abdomen. - Will need to remove this IVC filter prior to discharge to prevent further iatrogenic complications. #Tricuspid valve vegetations? - Patient had possible tricuspid valve vegetations last admission also. MADINA was indeterminate. - He doesn't seem to meet Nye criteria for endocarditis. - Will defer antibiotics to ID. Current recommendation is a 42 day course of ceftriaxone (until May 04) for likely endocarditis. # Acute hypoxic respiratory failure with fever/sepsis - Secondary to chronic pulmonary embolism, noncompliant with Eliquis after last hospital discharge. - antiphospholipid antibody and protein C was ordered, although hypercoagulable workup is usually not done during treatment of active thrombosis. - Continue Eliquis 5 mg twice daily. Likely will need indefinite anticoagulation. - Patient has been requiring 2L oxygen at rest while inpatient. However, note that last time he left [facility] he was living at his mother's house somewhat functional on room air for over a month. - Continue antitussives as needed for cough # CLAUDIA: Resolving now Dispo: Heparin gtt until IVC filter can be removed, then complete a course of IV ceftriaxone. Result Diagram: 04/02/19 0512 04/02/19 0512 Subjective 24 Hr Interval Summary Free Text/Dictation No acute overnight events. Patient sleeping comfortably. Exam/Review of Systems Exam Vitals Vital Signs Date Temp Pulse Resp B/P (MAP) Pulse Ox O2 O2 Flow FiO2 Time Delivery Rate 04/02/19 98.0 95 20 112/60 95 15:14 (77) 04/02/19 3.0 15:06 5/29/19 Nasal 14:08 Cannula 04/01/19 00:56 Intake and Output 04/01/19 04/01/19 04/02/19 1515:00 23:00 07:00 IntakeIntake Total 950 ml 1200 ml OutputOutput Total 1250 ml 2200 ml BalanceBalance -300 ml -1000 ml Exam Gen: Well appearing man sleeping comfortably. Eyes: Non icteric HEENT: Moist mucous membranes, clear oropharynx Card: Regular rate and rhythm, no murmurs Pulm: Coarse lung sounds bilaterally but no wheezing. Breathing comfortably on 2L nasal cannula. Abd: Soft, nondistended, nontender. Ext: No cyanosis/clubbing/edema Results Results 24hrs Laboratory Tests Test 04/02/19 05:12 White Blood Count 12.5 #H Red Blood Count 2.99 L Hemoglobin 7.9 L Hematocrit 25.4 L Mean Corpuscular Volume 84.9 Mean Corpuscular Hemoglobin 26.4 L Mean Corpuscular Hemoglobin Concent 31.1 L Red Cell Distribution Width 15.2 H Platelet Count 353 Mean Platelet Volume 9.8 Immature Granulocytes % 1.100 H Neutrophils % 91.9 H Lymphocytes % 5.6 L Monocytes % 1.3 Eosinophils % 0.0 Basophils % 0.1 Nucleated Red Blood Cells % 0.0 Immature Granulocytes # 0.140 H Neutrophils # 11.4 H Lymphocytes # 0.7 L Monocytes # 0.2 L Eosinophils # 0.0 Basophils # 0.0 Nucleated Red Blood Cells # 0.0 Prothrombin Time 17.0 H Prothrombin Time Ratio 1.3 INR International Normalized Ratio 1.37 Activated Partial Thromboplast Time 39.7 H Fibrinogen 404.0 Sodium Level 136 Potassium Level 5.0 Chloride Level 99 Carbon Dioxide Level 29 Anion Gap 8 Blood Urea Nitrogen 35 H Creatinine 0.98 Est Glomerular Filtrat Rate mL/min > 60 Glucose Level 165 Calcium Level 8.8 Phosphorus Level 4.0 Magnesium Level 1.8 Total Bilirubin 0.4 Direct Bilirubin 0.00 Indirect Bilirubin 0.4 Aspartate Amino Transf (AST/SGOT) 37 Alanine Aminotransferase (ALT/SGPT) 20 Alkaline Phosphatase 229 H Lactate Dehydrogenase 751 H Total Protein 8.9 H Albumin 3.5 Globulin 5.40 H Albumin/Globulin Ratio 0.64 Medications Medication Current Medications IV Flush (NS 3 ml) 3 ml PER PROTOCOL IV ; Start 03/17/19 at 15:00 Furosemide (Lasix) 20 mg DAILY PO Last administered on 04/02/19 08:12; Admin Dose 20 MG; Start 03/20/19 at 09:00 Ceftriaxone Sodium 50 ml @ 100 mls/hr Q24H IVPB Last administered on 04/02/19 11:30; Admin Dose 100 MLS/HR; Start 03/23/19 at 11:00 Guaifenesin/ Dextromethorphan (Robitussin Dm Liquid Cup) 5 ml Q4H PRN PO COUGH Last administered on 04/01/19 19:10; Admin Dose 5 ML; Start 03/23/19 at 22:00 Phenol (Cepastat Lozenge) 1 lozenge Q1H PRN MT COUGH Last administered on 04/01/19 19:11; Admin Dose 1 LOZENGE; Start 03/24/19 at 13:30 Morphine Sulfate (morphine) 1 mg Q4H PRN IV SEVERE PAIN LEVEL 7-10 Last administered on 04/02/19 13:05; Admin Dose 1 MG; Start 03/24/19 at 16:00 Oxycodone/ Acetaminophen (Percocet (5/ 325)) 1 tab Q6H PRN PO .SEVERE PAIN 7-10 Last administered on 03/31/19 12:06; Admin Dose 1 TAB; Start 03/24/19 at 15:00 Fluconazole (Diflucan) 200 mg DAILY PO Last administered on 04/02/19 08:12; Admin Dose 200 MG; Start 03/27/19 at 11:30 Senna (Senokot) 1 tab BID PO Last administered on 04/02/19 08:12; Admin Dose 1 TAB; Start 03/27/19 at 21:00 Docusate Sodium (Colace) 100 mg BID PRN PO CONSTIPATION; Start 03/27/19 at 15:30 Levalbuterol (Xopenex Neb) 1.25 mg Q4H RESP THERAPY HHN Last administered on 04/02/19 14:08; Admin Dose 1.25 MG; Start 03/30/19 at 21:00 Ipratropium [place] (Atrovent 0.02% (Neb)) 0.5 mg Q4H RESP THERAPY HHN Last administered on 04/02/19 14:08; Admin Dose 0.5 MG; Start 03/30/19 at 21:00 Methylprednisolone Sodium Succinate (Solu-Medrol) 40 mg Q8 IV Last administered on 04/02/19at 13:51; Admin Dose 40 MG; Start 03/31/19 at 14:00 Ondansetron HCl 8 mg/Dextrose 54 ml @ 108 mls/hr Q6H PRN IV NAUSEA AND/OR VOMITING Last administered on 03/31/19at 21:03; Admin Dose 108 MLS/HR; Start 03/31/19 at 17:00 Apixaban (Eliquis) 5 mg BID PO Last administered on 04/02/19at 08:12; Admin Dose 5 MG; Start 04/01/19 at 21:00 Epoetin Jamey-epbx (Retacrit (Non-Esrd)) 10,000 unit MoWeFr@1700 SC ; Start 04/02/19 at 17:00 ALEX CLARKE MD April 02, 2019 15:26
[2019-04-02] MEDS ORDERED: HEPARIN 1000 UNITS/ML 10 ML INJ IV PRN (15:30)
[2019-04-02] MEDS ORDERED: HEPARIN 1000 UNITS/ML 10 ML INJ IV ONE (15:30)
[2019-04-02] MEDS: HEPARIN 25000 UNITS/250 ML 250 ML IV SCH (16:56)
[2019-04-02] MEDS: EPOETIN ALFA-EPBX (NON-ESRD 10,000 UNIT/ML VIAL SC SCH (17:39)
[2019-04-02] MEDS: GUAIFENESIN/DM 5ML CUP PO PRN (22:41)
[2019-04-03] VITALS (11 sets, daily range): BP systolic 111–129; BP diastolic 58–77; PULSE 92–115; RESP 16–18; Ht 167.6 cm; Wt 82.7 kg
[2019-04-03] MEDS: IPRATROPIUM (NEB) 0.5 MG/2.5 ML AMP HHN SCH ×6 (01:33→20:52)
[2019-04-03] MEDS: LEVALBUTEROL (NEB) 1.25 MG/0.5 ML AMP HHN SCH ×6 (01:33→20:52)
[2019-04-03] MEDS: morphine 2 MG INJ IV PRN ×5 (04:36→22:45)
[2019-04-03] MEDS: METHYLPREDNISOLONE 40 MG INJ IV SCH (06:03)
[2019-04-03] MEDS: HEPARIN 25000 UNITS/250 ML 250 ML IV SCH ×3 (06:54→22:43)
[2019-04-03] MEDS: SENNA TAB PO SCH ×2 (09:07→20:21)
[2019-04-03] MEDS: FUROSEMIDE 20 MG TAB PO SCH (09:07)
[2019-04-03] MEDS: FLUCONAZOLE 200 MG TAB PO SCH (09:07)
--- NOTE | 2019-04-03 10:44 | CONS ---
Consultation Date/Type/Reason Admit Date/Time March 17, 2019 at 15:13 Initial Consult Date 03/29/19 Type of Consult Pulmonary Patient is a 28-year-old male who was admitted on the of this month with complaints of fever and chills after using intravenous methamphetamine prior to admission. Patient is been diagnosed with endocarditis and is currently on appropriate antimicrobial regimen. CT chest was done yesterday which is showing what appears to be acute on chronic right-sided pulmonary embolic disease. Patient is complaining very scant hemoptysis and according to him is feeling much better since admission. Denies any chest pain, compress very mild shortness of breath. Past medical history; 1. History of sternotomy with valve replacement. Likely tricuspid valve. 2. History of active intravenous drug use. Medications; reviewed. Allergies; none. Social history; positive for drug abuse. Family history; noncontributory. Occupational history; patient is on disability. Review of systems; denies any headache, seizures, visual changes. Any chest pain, complains of very minimal cough with very minimal hemoptysis. Denies any abdominal pain, nausea vomiting. Any fever chills. Any back pain. Any skin changes. Appears very minimal weight loss. Denies any melena hematochezia. General exam; young male, awake alert, currently no distress. Laying comfortably in bed. Requesting Provider: ROBY MILLER MD Date/Time of Note DATE: 04/03/19 TIME: 10:42 24 HR Interval Summary Free Text/Dictation Patient's condition is stable. No further hemoptysis. Denies any shortness of breath. General exam; young male, awake alert, currently no distress. H EENT exam; supple neck, no neck masses. Pharynx is clear. Patient has fair dentition. Chest exam; clear to auscultation. S1-S2 audible, no murmurs. Regular rhythm. There is a well-healed sternal scar. Abdomen exam; soft, nontender. No organomegaly. Bowel sounds audible. Extremity exam; no peripheral edema clubbing. [employer]CHIVES DIRECTOR exam; focal deficit. Assessment and recommendations; 1. 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 2. Hemoptysis with significant interval improvement on Solu-Medrol, patient taken off anticoagulation. Pulmonary embolism is septic emboli to lungs rather than thromboembolic in etiology. 3. Prior history of tricuspid valve replacement. 4. Mild anemia. Continue current supportive care. Discontinue Solu-Medrol and start prednisone 30 mg daily. Exam/Review of Systems Exam Vitals Vital Signs Date Temp Pulse Resp B/P (MAP) Pulse Ox O2 O2 Flow FiO2 Time Delivery Rate 04/03/19 Nasal 09:00 Cannula 04/03/19 92 08:23 04/03/19 3.0 08:14 04/03/19 18 97 08:14 04/03/19 98.1 129/72 04:54 (91) 04/01/19 00:56 Intake and Output 04/02/19 04/02/19 04/03/19 1515:00 23:00 07:00 IntakeIntake Total 2750 ml OutputOutput Total 3100 ml BalanceBalance -350 ml Results Result Diagram: 04/03/1921 04/03/19520 Results 24hrs Laboratory Tests Test 04/02/19 23:01 04/03/19 05:21 Activated Partial Thromboplast Time 71.6 *H 45.7 H White Blood Count 12.2 H Red Blood Count 3.05 L Hemoglobin 8.1 L Hematocrit 25.9 L Mean Corpuscular Volume 84.9 Mean Corpuscular Hemoglobin 26.6 L Mean Corpuscular Hemoglobin Concent 31.3 L Red Cell Distribution Width 15.6 H Platelet Count 352 Mean Platelet Volume 9.7 Immature Granulocytes % 1.100 H Neutrophils % 90.7 H Lymphocytes % 6.1 L Monocytes % 2.0 Eosinophils % 0.0 Basophils % 0.1 Nucleated Red Blood Cells % 0.0 Immature Granulocytes # 0.140 H Neutrophils # 11.1 H Lymphocytes # 0.8 Monocytes # 0.3 Eosinophils # 0.0 Basophils # 0.0 Nucleated Red Blood Cells # 0.0 Sodium Level 136 Potassium Level 4.3 Chloride Level 101 Carbon Dioxide Level 29 Anion Gap 6 Blood Urea Nitrogen 40 H Creatinine 0.95 Est Glomerular Filtrat Rate mL/min > 60 Glucose Level 160 Calcium Level 8.8 Total Bilirubin 0.3 Direct Bilirubin 0.00 Indirect Bilirubin 0.3 Aspartate Amino Transf (AST/SGOT) 30 Alanine Aminotransferase (ALT/SGPT) 26 Alkaline Phosphatase 219 H Total Protein 8.5 H Albumin 3.3 Globulin 5.20 H Albumin/Globulin Ratio 0.63 Procalcitonin 0.24 H Medications Medication Current Medications IV Flush (NS 3 ml) 3 ml PER PROTOCOL IV ; Start 03/17/19 at 15:00 Furosemide (Lasix) 20 mg DAILY PO Last administered on 04/03/19 09:07; Admin Dose 20 MG; Start 03/20/19 at 09:00 Ceftriaxone Sodium 50 ml @ 100 mls/hr Q24H IVPB Last administered on 04/02/19 11:30; Admin Dose 100 MLS/HR; Start 03/23/19 at 11:00 Guaifenesin/ Dextromethorphan (Robitussin Dm Liquid Cup) 5 ml Q4H PRN PO COUGH Last administered on 04/02/19 22:41; Admin Dose 5 ML; Start 03/23/19 at 22:00 Phenol (Cepastat Lozenge) 1 lozenge Q1H PRN MT COUGH Last administered on 04/01/19 19:11; Admin Dose 1 LOZENGE; Start 03/24/19 at 13:30 Morphine Sulfate (morphine) 1 mg Q4H PRN IV SEVERE PAIN LEVEL 7-10 Last administered on 04/03/19 09:23; Admin Dose 1 MG; Start 03/24/19 at 16:00 Oxycodone/ Acetaminophen (Percocet (5/ 325)) 1 tab Q6H PRN PO .SEVERE PAIN 7-10 Last administered on 03/31/19 12:06; Admin Dose 1 TAB; Start 03/24/19 at 15:00 Fluconazole (Diflucan) 200 mg DAILY PO Last administered on 04/03/19 09:07; Admin Dose 200 MG; Start 03/27/19 at 11:30 Senna (Senokot) 1 tab BID PO Last administered on 04/03/19 09:07; Admin Dose 1 TAB; Start 03/27/19 at 21:00 Docusate Sodium (Colace) 100 mg BID PRN PO CONSTIPATION; Start 03/27/19 at 15:30 Levalbuterol (Xopenex Neb) 1.25 mg Q4H RESP THERAPY HHN Last administered on 04/03/19 08:12; Admin Dose 1.25 MG; Start 03/30/19 at 21:00 Ipratropium [place] (Atrovent 0.02% (Neb)) 0.5 mg Q4H RESP THERAPY HHN Last administered on 04/03/19 08:12; Admin Dose 0.5 MG; Start 03/30/19 at 21:00 Methylprednisolone Sodium Succinate (Solu-Medrol) 40 mg Q8 IV Last administered on 04/03/19 06:03; Admin Dose 40 MG; Start 03/31/19 at 14:00 Ondansetron HCl 8 mg/Dextrose 54 ml @ 108 mls/hr Q6H PRN IV NAUSEA AND/OR VOMITING Last administered on 03/31/19 21:03; Admin Dose 108 MLS/HR; Start 03/31/19 at 17:00 Apixaban (Eliquis) 5 mg BID PO Last administered on 04/02/19 08:12; Admin Dose 5 MG; Start 04/01/19 at 21:00; Status Hold Epoetin Jamey-epbx (Retacrit (Non-Esrd)) 10,000 unit MoWeFr@1700 SC Last administered on 04/02/19 17:39; Admin Dose 10,000 UNIT; Start 04/02/19 at 17:00 Heparin Sodium (Porcine) (Heparin (1000 Units/ml)) 6,600 unit PER PROTOCOL PRN IV aPTT<47 Last administered on 04/03/19 06:55; Admin Dose 6,600 UNIT; Start 04/02/19 at 15:30 Heparin Sodium (Porcine) 250 ml @ 14.76 mls/ hr PER PROTOCOL IV Last administered on 04/03/19 09:19; Admin Dose 18 MLS/HR; Start 04/02/19 at 16:00 CARLOS TRIVEDI April 03, 2019 10:44
--- NOTE | 2019-04-03 12:20 | PN ---
Date/Time of Note Date/Time of Note DATE: 04/03/19 TIME: 12:18 Assessment/Plan VTE Prophylaxis Risk score (from Ns)>0 risk: 1 SCD applied (from [facility] [place] No SCD contraindicated: other (no) Pharmacological prophylaxis: heparin Lines/Catheters IV [facility]ter Type (from [facility]): Peripheral IV Urinary Cath still in place: No Assessment/Plan Assessment/Plan 28 yo man with h/o valve replacements and PPM following endocarditis in 2017; and chronic pulmonary embolism who presented with fever, tachypnea, and hypoxia with pulmonary infiltrates following IV meth use #IVC filter thrombus. - IVC filter placed last admission (not indicated at the time and not indicated now). - Now filter has developed a 1x1 cm thrombus at the tip, which is a contraindication for removal. - Will start heparin gtt for 5-[address] abdomen. - Will need to remove this IVC filter prior to discharge to prevent further iatrogenic complications. #Tricuspid valve vegetation - Patient had possible tricuspid valve vegetations last admission also. MADINA was indeterminate. - Will defer antibiotics to ID. Current recommendation is a 42 day course of ceftriaxone (until May 04) for likely endocarditis. # Acute hypoxic respiratory failure with fever/sepsis - Secondary to chronic pulmonary embolism, noncompliant with Eliquis after last hospital discharge. - antiphospholipid antibody and protein C was ordered, although hypercoagulable workup is usually not done during treatment of active thrombosis. - Currently on heparin gtt until IVC thrombus has resolved. When heparin gtt is stopped, resume Eliquis indefinitely. - Patient has been requiring 2L oxygen at rest while inpatient. However, note that last time he left A he was living at his mother's house somewhat functional on room air for over a month. - Continue antitussives as needed for cough # CLAUDIA: Resolving now Dispo: Heparin gtt until IVC filter can be removed, then complete a course of IV ceftriaxone. Result Diagram: 04/03/1952004/03/19520 Subjective 24 Hr Interval Summary Free Text/Dictation The patient is sleeping comfortably. Started on heparin gtt last night uneventfully. Exam/Review of Systems Exam Vitals Vital Signs Date Temp Pulse Resp B/P (MAP) Pulse Ox O2 O2 Flow FiO2 Time Delivery Rate 04/03/19 97.8 100 16 122/77 92 11:36 (92) 04/03/19 Nasal 09:00 Cannula 04/03/19 3.0 08:14 04/01/19 00:56 Intake and Output 04/02/19 04/02/19 04/03/19 1414:59 22:59 06:59 IntakeIntake Total 2750 ml OutputOutput Total 3100 ml BalanceBalance -350 ml Exam Gen: Well appearing man sleeping comfortably. Eyes: Non icteric HEENT: Moist mucous membranes, clear oropharynx Card: Regular rate and rhythm, no murmurs Pulm: Coarse lung sounds bilaterally but no wheezing. Breathing comfortably on 2L nasal cannula. Abd: Soft, nondistended, nontender. Ext: No cyanosis/clubbing/edema Results Results 24hrs Laboratory Tests Test 04/02/19 23:01 04/03/19 05:21 Activated Partial Thromboplast Time 71.6 *H 45.7 H White Blood Count 12.2 H Red Blood Count 3.05 L Hemoglobin 8.1 L Hematocrit 25.9 L Mean Corpuscular Volume 84.9 Mean Corpuscular Hemoglobin 26.6 L Mean Corpuscular Hemoglobin Concent 31.3 L Red Cell Distribution Width 15.6 H Platelet Count 352 Mean Platelet Volume 9.7 Immature Granulocytes % 1.100 H Neutrophils % 90.7 H Lymphocytes % 6.1 L Monocytes % 2.0 Eosinophils % 0.0 Basophils % 0.1 Nucleated Red Blood Cells % 0.0 Immature Granulocytes # 0.140 H Neutrophils # 11.1 H Lymphocytes # 0.8 Monocytes # 0.3 Eosinophils # 0.0 Basophils # 0.0 Nucleated Red Blood Cells # 0.0 Sodium Level 136 Potassium Level 4.3 Chloride Level 101 Carbon Dioxide Level 29 Anion Gap 6 Blood Urea Nitrogen 40 H Creatinine 0.95 Est Glomerular Filtrat Rate mL/min > 60 Glucose Level 160 Calcium Level 8.8 Total Bilirubin 0.3 Direct Bilirubin 0.00 Indirect Bilirubin 0.3 Aspartate Amino Transf (AST/SGOT) 30 Alanine Aminotransferase (ALT/SGPT) 26 Alkaline Phosphatase 219 H Total Protein 8.5 H Albumin 3.3 Globulin 5.20 H Albumin/Globulin Ratio 0.63 Procalcitonin 0.24 H Medications Medication Current Medications IV Flush (NS 3 ml) 3 ml PER PROTOCOL IV ; Start 03/17/19 at 15:00 Furosemide (Lasix) 20 mg DAILY PO Last administered on 04/03/19at 09:07; Admin Dose 20 MG; Start 03/20/19 at 09:00 Ceftriaxone Sodium 50 ml @ 100 mls/hr Q24H IVPB Last administered on 04/02/19 11:30; Admin Dose 100 MLS/HR; Start 03/23/19 at 11:00 Guaifenesin/ Dextromethorphan (Robitussin Dm Liquid Cup) 5 ml Q4H PRN PO COUGH Last administered on 04/02/19 22:41; Admin Dose 5 ML; Start 03/23/19 at 22:00 Phenol (Cepastat Lozenge) 1 lozenge Q1H PRN MT COUGH Last administered on 04/01/19 19:11; Admin Dose 1 LOZENGE; Start 03/24/19 at 13:30 Morphine Sulfate (morphine) 1 mg Q4H PRN IV SEVERE PAIN LEVEL 7-10 Last administered on 04/03/19 09:23; Admin Dose 1 MG; Start 03/24/19 at 16:00 Oxycodone/ Acetaminophen (Percocet (5/ 325)) 1 tab Q6H PRN PO .SEVERE PAIN 7-10 Last administered on 03/31/19 12:06; Admin Dose 1 TAB; Start 03/24/19 at 15:00 Fluconazole (Diflucan) 200 mg DAILY PO Last administered on 04/03/19 09:07; Admin Dose 200 MG; Start 03/27/19 at 11:30 Senna (Senokot) 1 tab BID PO Last administered on 04/03/19 09:07; Admin Dose 1 TAB; Start 03/27/19 at 21:00 Docusate Sodium (Colace) 100 mg BID PRN PO CONSTIPATION; Start 03/27/19 at 15:30 Levalbuterol (Xopenex Neb) 1.25 mg Q4H RESP THERAPY HHN Last administered on 04/03/19 08:12; Admin Dose 1.25 MG; Start 03/30/19 at 21:00 Ipratropium [place] (Atrovent 0.02% (Neb)) 0.5 mg Q4H RESP THERAPY HHN Last administered on 04/03/19 08:12; Admin Dose 0.5 MG; Start 03/30/19 at 21:00 Ondansetron HCl 8 mg/Dextrose 54 ml @ 108 mls/hr Q6H PRN IV NAUSEA AND/OR VOMITING Last administered on 03/31/19 21:03; Admin Dose 108 MLS/HR; Start 03/31/19 at 17:00 Apixaban (Eliquis) 5 mg BID PO Last administered on 04/02/19 08:12; Admin Dose 5 MG; Start 04/01/19 at 21:00; Status Hold Epoetin Jamey-epbx (Retacrit (Non-Esrd)) 10,000 unit MoWeFr@1700 SC Last administered on 04/02/19 17:39; Admin Dose 10,000 UNIT; Start 04/02/19 at 17:00 Heparin Sodium (Porcine) (Heparin (1000 Units/ml)) 6,600 unit PER PROTOCOL PRN IV aPTT<47 Last administered on 04/03/19 06:55; Admin Dose 6,600 UNIT; Start 04/02/19 at 15:30 Heparin Sodium (Porcine) 250 ml @ 14.76 mls/ hr PER PROTOCOL IV Last administered on 04/03/19 09:19; Admin Dose 18 MLS/HR; Start 04/02/19 at 16:00 Prednisone (Prednisone) 30 mg DAILY PO ; Start 04/04/19 at 09:00 ALEX CLARKE MD April 03, 2019 12:20
[2019-04-03] MEDS: CEFTRIAXONE 2 GM/50 ML (PMX) 50 ML IVPB SCH (12:26)
--- NOTE | 2019-04-03 15:16 | PN ---
Date/Time of Note Date/Time of Note DATE: 04/03/19 TIME: 15:08 Assessment/Plan VTE Prophylaxis Risk score (from [facility] [place]0 risk: 1 SCD applied (from [facility] [place]): No SCD contraindicated: other (per primary MD) Pharmacological prophylaxis: heparin Lines/Catheters IV Catheter Type (from [facility]): Peripheral IV Urinary Cath still in place: No Assessment/Plan Assessment/Plan Hgb stable at about 8. EPO has been started while the EPO assay is pending. No fever presently. I will check reticulocyte count later. Continue to treat endocarditis and PE as already being done. Result Diagram: 04/03/1952004/03/19520 Results 24hrs Laboratory Tests Test 04/02/19 23:01 04/03/19 05:21 04/03/19 13:50 Activated Partial Thromboplast Time 71.6 *H 45.7 H 55.8 H White Blood Count 12.2 H Red Blood Count 3.05 L Hemoglobin 8.1 L Hematocrit 25.9 L Mean Corpuscular Volume 84.9 Mean Corpuscular Hemoglobin 26.6 L Mean Corpuscular Hemoglobin Concent 31.3 L Red Cell Distribution Width 15.6 H Platelet Count 352 Mean Platelet Volume 9.7 Immature Granulocytes % 1.100 H Neutrophils % 90.7 H Lymphocytes % 6.1 L Monocytes % 2.0 Eosinophils % 0.0 Basophils % 0.1 Nucleated Red Blood Cells % 0.0 Immature Granulocytes # 0.140 H Neutrophils # 11.1 H Lymphocytes # 0.8 Monocytes # 0.3 Eosinophils # 0.0 Basophils # 0.0 Nucleated Red Blood Cells # 0.0 Sodium Level 136 Potassium Level 4.3 Chloride Level 101 Carbon Dioxide Level 29 Anion Gap 6 Blood Urea Nitrogen 40 H Creatinine 0.95 Est Glomerular Filtrat Rate mL/min > 60 Glucose Level 160 Calcium Level 8.8 Total Bilirubin 0.3 Direct Bilirubin 0.00 Indirect Bilirubin 0.3 Aspartate Amino Transf (AST/SGOT) 30 Alanine Aminotransferase (ALT/SGPT) 26 Alkaline Phosphatase 219 H Total Protein 8.5 H Albumin 3.3 Globulin 5.20 H Albumin/Globulin Ratio 0.63 Procalcitonin 0.24 H Subjective 24 Hr Interval Summary Free Text/Dictation Pt resting quietly now. Exam/Review of Systems Exam Vitals Vital Signs Date Temp Pulse Resp B/P (MAP) Pulse Ox O2 O2 Flow FiO2 Time Delivery Rate 04/03/19 93 18 96 Nasal 2.0 13:29 Cannula 04/03/19 97.8 122/77 11:36 (92) 04/01/19 00:56 Intake and Output 04/02/19 04/02/19 04/03/19 1515:00 23:00 07:00 IntakeIntake Total 2750 ml OutputOutput Total 3100 ml BalanceBalance -350 ml Constitutional: other (resting quietly) Head: normocephalic Eyes: other (moderate pallor) Neck: supple Respiratory: clear to auscultation Cardiovascular: regular rate and rhythm Gastrointestinal: soft, non-tender Results Results 24hrs Laboratory Tests Test 04/02/19 23:01 04/03/19 05:21 04/03/19 13:50 Activated Partial Thromboplast Time 71.6 *H 45.7 H 55.8 H White Blood Count 12.2 H Red Blood Count 3.05 L Hemoglobin 8.1 L Hematocrit 25.9 L Mean Corpuscular Volume 84.9 Mean Corpuscular Hemoglobin 26.6 L Mean Corpuscular Hemoglobin Concent 31.3 L Red Cell Distribution Width 15.6 H Platelet Count 352 Mean Platelet Volume 9.7 Immature Granulocytes % 1.100 H Neutrophils % 90.7 H Lymphocytes % 6.1 L Monocytes % 2.0 Eosinophils % 0.0 Basophils % 0.1 Nucleated Red Blood Cells % 0.0 Immature Granulocytes # 0.140 H Neutrophils # 11.1 H Lymphocytes # 0.8 Monocytes # 0.3 Eosinophils # 0.0 Basophils # 0.0 Nucleated Red Blood Cells # 0.0 Sodium Level 136 Potassium Level 4.3 Chloride Level 101 Carbon Dioxide Level 29 Anion Gap 6 Blood Urea Nitrogen 40 H Creatinine 0.95 Est Glomerular Filtrat Rate mL/min > 60 Glucose Level 160 Calcium Level 8.8 Total Bilirubin 0.3 Direct Bilirubin 0.00 Indirect Bilirubin 0.3 Aspartate Amino Transf (AST/SGOT) 30 Alanine Aminotransferase (ALT/SGPT) 26 Alkaline Phosphatase 219 H Total Protein 8.5 H Albumin 3.3 Globulin 5.20 H Albumin/Globulin Ratio 0.63 Procalcitonin 0.24 H Medications Medication Current Medications IV Flush (NS 3 ml) 3 ml PER PROTOCOL IV ; Start 03/17/19 at 15:00 Furosemide (Lasix) 20 mg DAILY PO Last administered on 04/03/19 09:07; Admin Dose 20 MG; Start 03/20/19 at 09:00 Ceftriaxone Sodium 50 ml @ 100 mls/hr Q24H IVPB Last administered on 04/03/19 12:26; Admin Dose 100 MLS/HR; Start 03/23/19 at 11:00 Guaifenesin/ Dextromethorphan (Robitussin Dm Liquid Cup) 5 ml Q4H PRN PO COUGH Last administered on 04/02/19 22:41; Admin Dose 5 ML; Start 03/23/19 at 22:00 Phenol (Cepastat Lozenge) 1 lozenge Q1H PRN MT COUGH Last administered on 04/01/19 19:11; Admin Dose 1 LOZENGE; Start 03/24/19 at 13:30 Morphine Sulfate (morphine) 1 mg Q4H PRN IV SEVERE PAIN LEVEL 7-10 Last administered on 04/03/19 13:37; Admin Dose 1 MG; Start 03/24/19 at 16:00 Oxycodone/ Acetaminophen (Percocet (5/ 325)) 1 tab Q6H PRN PO .SEVERE PAIN 7-10 Last administered on 03/31/19 12:06; Admin Dose 1 TAB; Start 03/24/19 at 15:00 Fluconazole (Diflucan) 200 mg DAILY PO Last administered on 04/03/19 09:07; Admin Dose 200 MG; Start 03/27/19 at 11:30 Senna (Senokot) 1 tab BID PO Last administered on 04/03/19 09:07; Admin Dose 1 TAB; Start 03/27/19 at 21:00 Docusate Sodium (Colace) 100 mg BID PRN PO CONSTIPATION; Start 03/27/19 at 15:30 Levalbuterol (Xopenex Neb) 1.25 mg Q4H RESP THERAPY HHN Last administered on 04/03/19 13:29; Admin Dose 1.25 MG; Start 03/30/19 at 21:00 Ipratropium [place] (Atrovent 0.02% (Neb)) 0.5 mg Q4H RESP THERAPY HHN Last administered on 04/03/19 13:29; Admin Dose 0.5 MG; Start 03/30/19 at 21:00 Ondansetron HCl 8 mg/Dextrose 54 ml @ 108 mls/hr Q6H PRN IV NAUSEA AND/OR VOMITING Last administered on 03/31/19at 21:03; Admin Dose 108 MLS/HR; Start 03/31/19 at 17:00 Apixaban (Eliquis) 5 mg BID PO Last administered on 04/02/19at 08:12; Admin Dose 5 MG; Start 04/01/19 at 21:00; Status Hold Epoetin Jamey-epbx (Retacrit (Non-Esrd)) 10,000 unit MoWeFr@1700 SC Last administered on 04/02/19at 17:39; Admin Dose 10,000 UNIT; Start 04/02/19 at 17:00 Heparin Sodium (Porcine) (Heparin (1000 Units/ml)) 6,600 unit PER PROTOCOL PRN IV aPTT<47 Last administered on 04/03/19at 06:55; Admin Dose 6,600 UNIT; Start 04/02/19 at 15:30 Heparin Sodium (Porcine) 250 ml @ 14.76 mls/ hr PER PROTOCOL IV Last administered on 04/03/19at 09:19; Admin Dose 18 MLS/HR; Start 04/02/19 at 16:00 Prednisone (Prednisone) 30 mg DAILY PO ; Start 04/04/19 at 09:00 Heparin Sodium (Porcine) (Heparin (5000 Units/1ml)) 3,300 unit ONCE IV ; Start 04/03/19 at 15:30; Status LUIS PRICE MD April 03, 2019 15:16
[2019-04-03] MEDS: HEPARIN 1000 UNITS/ML 10 ML INJ IV PRN (15:24)
[2019-04-03] MEDS ORDERED: HEPARIN 5,000 UNIT/1 ML VIAL IV SCH (15:30)
[2019-04-04] VITALS (11 sets, daily range): BP systolic 104–126; BP diastolic 63–77; PULSE 90–111; RESP 18–19
[2019-04-04] MEDS: LEVALBUTEROL (NEB) 1.25 MG/0.5 ML AMP HHN SCH ×6 (01:17→20:30)
[2019-04-04] MEDS: IPRATROPIUM (NEB) 0.5 MG/2.5 ML AMP HHN SCH ×6 (01:17→20:30)
[2019-04-04] MEDS: morphine 2 MG INJ IV PRN ×4 (05:42→20:24)
[2019-04-04] MEDS: HEPARIN 25000 UNITS/250 ML 250 ML IV SCH ×3 (06:44→22:11)
[2019-04-04] MEDS: HEPARIN 1000 UNITS/ML 10 ML INJ IV PRN (06:44)
--- NOTE | 2019-04-04 07:11 | CONS ---
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 usual suspect in IVDA is staph or strep but pseudomonas and benjamin can also be seen continue with vanco/zosyn at present fevers have improved and WBC is improved today I will order WBC scan as pt c/o pain over the pacer site I will also order u/s of pacer site to see if there is fluid present 03/20 - GPC growing in all 3 sets of blood cx from 03/17, await ID MRSA in nasal continue with vanco/zosyn pt was seen in this hospital last month under a different MRN and he was evaluated for endocarditis at that time he had corynebacterium in two different sets of blood cx and had a MADINA which was neg for vegetations he was give two weeks of ceftriaxone for pneumonia, they also wondered if he had septic emboli or PE at that time he got an IVC filter but were planning to remove it because he did not have a PE but he left AMA u/s of around pacer site was neg for fluid collection WBC scan is pending 03/21 - WBC scan only has activity in the lung s.aureus is in the blood repeat blood cx on 03/18 are NGTD, repeat again continue with vanco, d/c zosyn 03/24- MSSA in blood, vanco stopped yesterday and switched to ceftriaxone 2gm q24 hours repeat blood cx all remain NGTD 03/25 - low grade temp noted, to repeat CXR procalcitonin was greatly improved but will repeat in a.m. continue with just ceftriaxone, all repeat blood cx are NGTD 03/26 - procalcitonin is pending but CXR from yesterday was slightly improved WBC is still elevated and higher today, clinically pt is much improved I saw that in january he had a marginal positive IgM cocci titer, to repeat this if procalcitonin is higher to broaden pulmonary coverage 03/27 - procalcitonin continues to improve, doubt he has pneumonia failing current therapy await repeat cocci titers to repeat blood cx again x1 03/28 - stable 03/29 - repeat blood cx remain neg continue with ceftriaxone 03/30 - WBC has normalized since back on anti-coagulation day of ceftriaxone 03/31 - CT abd/pelv shows clot above the IVC filter and improved LL infiltrates 04/02 - stable day of ceftriaxone 04/04 day of ceftriaxone hemoptysis has abated increase in WBC likely due to steroids procalcitonin is almost neg, repeat this weekend 2) IVDA pt states he was tested in the last 1-2 months and was neg for HIV and he does not share his needles no hx of hepatitis either I will check into his prior hospitalization here that if it exists is under anot her MR# / - pt has another MRN and his HIV was neg in february he had corynebacterium in two different sets of blood cx then 3) pulmonary infiltrates PACS system is not working on two different computers, I need to see his CT's and CXR to see if these are c/w septic emboli or not vanco/zosyn should cover if he has pneumonia rather than septic emboli procalcitonin has been ordered also 03/20 - his prior chest CT last month shows that he has waxing and waning of pulmonary infiltrates and his cavitary lesions have improved slightly his pulmonary infiltrates are patchy and somewhat large which would be atypical for septic emboli his procalcitonin is very high but bacteremia will also elevated it continue with vanco/zosyn will check for atypical organisms with serology 03/21 - pt is able to bring up some phlegm will order cx s.aureus is likely the culprit continue with vanco, d/c zosyn but add levaquin for atypical coverage 03/24 - sputum cx has c.alb only continue with levaquin and ceftriaxone, legionella was neg 03/25 - mycoplasma IgG was elevated but no IgM sent and at this time results would be back after he has finished his levaquin day 03/11 of levaquin 03/26 - day 6/ of levaquin CXR is improved check cocci titers since he had an equivocal IgM titer in january 201903/27 - today is last day of his oral levaquin await cocci titers 03/29 - pt has new areas of probable septic emboli pt had his lovenox stopped and is now re-started cause of new septic emboli are either due to ongoing infection of TV, which would indicate he needs surgery or due to a hypercoagulable state and in SBE the development of APLA can occur so will order this test in a.m. I will also repeat LE venous dopplers (pt already has an IVC filter in 03/30 - venous dopplers to UE and LE were negative no swelling of legs WBC has normalized since anti-coagulation was started await repeat 2d echo 03/31 - hemoptysis noted but minimal decrease in Hgb continue with anti-coagulation repeat procalcitonin in a.m., improved LL infiltrates noted on CT abd/pelv 04/02 - decrease in procalcitonin Hgb now at 7.9 4) ARF 03/21 this is improving 03/24 - resolved 5) leukocytosis 03/26 - pt is clinically improved one of his legs is slightly swollen but not tender and he had a neg LE venous doppler on 03/17 no diarrhea, so c.dif is unlikely no urinary c/o but will repeat u/a and urine cx will check cocci titers since pt had an equivocal IgM titer in january 2019 check RPR pt had a neg HIV test in january 2019 and HIV would not be cause of leukocytosis 03/27 - increasing alk phos, but pt is asymptomatic, will order RUQ u/s increasing WBC but decreasing procalcitonin, repeat both in a.m. 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 Consultation Date/Type/Reason Admit Date/Time March 17, 2019 at 15:13 Initial Consult Date 03/19/19 Type of Consult ID Requesting Provider: ROBY MILLER MD Date/Time of Note DATE: 04/04/19 TIME: 07:09 24 HR Interval Summary Free Text/Dictation spoke to nurse no more hemoptysis still has upper chest pain no V, D Exam/Review of Systems Exam Vitals Vital Signs Date Temp Pulse Resp B/P (MAP) Pulse Ox O2 O2 Flow FiO2 Time Delivery Rate 04/04/19 96 20 95 Nasal 2.0 04:56 Cannula 04/04/19 97.5 104/63 03:54 (77) 04/01/19 00:56 Intake and Output 04/03/19 04/03/19 04/04/19 1515:00 23:00 07:00 IntakeIntake Total 1600 ml 1300 ml OutputOutput Total 1400 ml 1350 ml 2400 ml BalanceBalance 200 ml -50 ml -2400 ml Exam asleep, did not wake up with gentle prodding Respiratory: clear to auscultation Cardiovascular: regular rate and rhythm Gastrointestinal: soft, non-tender Results Result Diagram: 04/04/19 0531 04/04/19 0531 Results 24hrs Laboratory Tests Test 04/03/19 13:50 04/03/19 21:05 04/04/19 05:31 Activated Partial Thromboplast Time 55.8 H 71.8 *H 56.3 H White Blood Count 13.9 H Red Blood Count 3.18 L Hemoglobin 8.3 L Hematocrit 27.1 L Mean Corpuscular Volume 85.2 Mean Corpuscular Hemoglobin 26.1 L Mean Corpuscular Hemoglobin Concent 30.6 L Red Cell Distribution Width 15.9 H Platelet Count 386 Mean Platelet Volume 9.4 Immature Granulocytes % 1.400 H Neutrophils % 80.5 H Lymphocytes % 10.5 L Monocytes % 7.5 Eosinophils % 0.0 Basophils % 0.1 Nucleated Red Blood Cells % 0.0 Immature Granulocytes # 0.200 H Neutrophils # 11.2 H Lymphocytes # 1.5 Monocytes # 1.1 H Eosinophils # 0.0 Basophils # 0.0 Nucleated Red Blood Cells # 0.0 Absolute Reticulocyte Count 0.088 Percent Reticulocyte Count 2.9 H Sodium Level 138 Potassium Level 4.1 Chloride Level 104 Carbon Dioxide Level 28 Anion Gap 6 Blood Urea Nitrogen 39 H Creatinine 0.93 Est Glomerular Filtrat Rate mL/min > 60 Glucose Level 120 # Calcium Level 8.8 Phosphorus Level 3.6 Magnesium Level 1.6 L Total Bilirubin 0.4 Direct Bilirubin 0.00 Indirect Bilirubin 0.4 Aspartate Amino Transf (AST/SGOT) 26 Alanine Aminotransferase (ALT/SGPT) 32 Alkaline Phosphatase 220 H Total Protein 8.3 H Albumin 3.3 Globulin 5.00 H Albumin/Globulin Ratio 0.66 Medications Medication Current Medications IV Flush (NS 3 ml) 3 ml PER PROTOCOL IV ; Start 03/17/19 at 15:00 Furosemide (Lasix) 20 mg DAILY PO Last administered on 04/03/19at 09:07; Admin Dose 20 MG; Start 03/20/19 at 09:00 Ceftriaxone Sodium 50 ml @ 100 mls/hr Q24H IVPB Last administered on 04/03/19 12:26; Admin Dose 100 MLS/HR; Start 03/23/19 at 11:00 Guaifenesin/ Dextromethorphan (Robitussin Dm Liquid Cup) 5 ml Q4H PRN PO COUGH Last administered on 04/02/19 22:41; Admin Dose 5 ML; Start 03/23/19 at 22:00 Phenol (Cepastat Lozenge) 1 lozenge Q1H PRN MT COUGH Last administered on 04/01/19 19:11; Admin Dose 1 LOZENGE; Start 03/24/19 at 13:30 Morphine Sulfate (morphine) 1 mg Q4H PRN IV SEVERE PAIN LEVEL 7-10 Last administered on 04/04/19 05:42; Admin Dose 1 MG; Start 03/24/19 at 16:00 Oxycodone/ Acetaminophen (Percocet (5/ 325)) 1 tab Q6H PRN PO .SEVERE PAIN 7-10 Last administered on 03/31/19 12:06; Admin Dose 1 TAB; Start 03/24/19 at 15:00 Fluconazole (Diflucan) 200 mg DAILY PO Last administered on 04/03/19 09:07; Admin Dose 200 MG; Start 03/27/19 at 11:30 Senna (Senokot) 1 tab BID PO Last administered on 04/03/19 20:21; Admin Dose 1 TAB; Start 03/27/19 at 21:00 Docusate Sodium (Colace) 100 mg BID PRN PO CONSTIPATION; Start 03/27/19 at 15:30 Levalbuterol (Xopenex Neb) 1.25 mg Q4H RESP THERAPY HHN Last administered on 04/04/19 04:55; Admin Dose 1.25 MG; Start 03/30/19 at 21:00 Ipratropium [place] (Atrovent 0.02% (Neb)) 0.5 mg Q4H RESP THERAPY HHN Last administered on 04/04/19 04:55; Admin Dose 0.5 MG; Start 03/30/19 at 21:00 Ondansetron HCl 8 mg/Dextrose 54 ml @ 108 mls/hr Q6H PRN IV NAUSEA AND/OR VOMITING Last administered on 03/31/19 21:03; Admin Dose 108 MLS/HR; Start 03/31/19 at 17:00 Apixaban (Eliquis) 5 mg BID PO Last administered on 04/02/19at 08:12; Admin Dose 5 MG; Start 04/01/19 at 21:00; Status Hold Epoetin Jamey-epbx (Retacrit (Non-Esrd)) 10,000 unit MoWeFr@1700 SC Last administered on 04/02/19at 17:39; Admin Dose 10,000 UNIT; Start 04/02/19 at 17:00 Heparin Sodium (Porcine) (Heparin (1000 Units/ml)) 6,600 unit PER PROTOCOL PRN IV aPTT<47 Last administered on 04/03/19at 06:55; Admin Dose 6,600 UNIT; Start 04/02/19 at 15:30 Prednisone (Prednisone) 30 mg DAILY PO ; Start 04/04/19 at 09:00 Heparin Sodium (Porcine) (Heparin (1000 Units/ml)) 3,300 unit PER PROTOCOL PRN IV aPTT<47-57 Last administered on 04/04/19at 06:44; Admin Dose 3,300 UNIT; Start 04/03/19 at 15:30 Heparin Sodium (Porcine) 250 ml @ 20.5 mls/hr PER PROTOCOL IV Last administered on 04/04/19 06:44; Admin Dose 23 MLS/HR; Start 04/03/19 at 22:30 JANETH LOGAN MD April 04, 2019 07:11
[2019-04-04] MEDS: predniSONE 10 MG TAB PO SCH (08:10)
[2019-04-04] MEDS: SENNA TAB PO SCH ×2 (08:11→20:24)
[2019-04-04] MEDS: FUROSEMIDE 20 MG TAB PO SCH (08:11)
[2019-04-04] MEDS: FLUCONAZOLE 200 MG TAB PO SCH (08:11)
--- NOTE | 2019-04-04 10:27 | PN ---
DATE: 04/04/2019 SUBJECTIVE: The patient continues to experience episodes of chest pain. Occasional hemoptysis is no [place]. No fevers or night sweats. No joint pain. No complaints of abdominal pain. No complaints of left upper quadrant discomfort or early satiety. OBJECTIVE: GENERAL: The patient is a well-developed, chronically ill-appearing male, in no acute distress. VITAL SIGNS: Temperature 97.7 orally, pulse 95 per minute and regular, respirations 19, blood pressu re 119/66, pulse oximetry 96% on room air on 2 liters of oxygen by nasal cannula. SKIN: Multiple tattoos. There are some small resolved abscesses from previous injections. No rashe s, no petechiae. HEENT: Normocephalic. No evidence of trauma. Pupils are equal, round, reactive to light and accomm odation. Sclerae are nonicteric. Oral mucosa is moist without lesions. Tongue is well papillated. There is no gingival hyperplasia, no hypertrophy of [place] ring. NECK: Supple. No jugular venous distention or thyroid enlargement. No carotid bruits. CHEST: Decreased breath sounds throughout, but no rhonchi, wheezes, rales or rubs. No pain on percu ssion of the spine, sternum, clavicles or ribs. HEART: Sinus tachycardia. No S3, S4 or murmurs. No rubs. ABDOMEN: Soft, no masses, no ascites. Bowel sounds are active. EXTREMITIES: No clubbing, edema or cyanosis. No splinter hemorrhage is seen. NEUROLOGIC: No focal neurologic abnormalities. LABORATORY DATA: White count 13,900 with an absolute neutrophil count of 11,200, hemoglobin 8.3, hem atocrit 27.1 and platelet count 386,000. Reticulocyte is 2.9%, but absolute reticulocyte count is only 88,000. Earlier haptoglobin was normal at 132. ASSESSMENT: 1. 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 2. Pulmonary emboli. 3. Pulmonary infiltrates, which may be related to septic emboli. PLAN: Continues on IV antibiotics. Also continues on anticoagulation with apixaban. No new hematol ogic recommendations at this time. Dictated By: BONIFACIO BANKS MD SR/NTS Conf#: [id number] DID#: [id number] CC: ROBY MILLER MD; ALEX CLARKE MD; BONIFACIO BANKS MD;*End*
[2019-04-04] MEDS: CEFTRIAXONE 2 GM/50 ML (PMX) 50 ML IVPB SCH (10:35)
--- NOTE | 2019-04-04 14:12 | PN ---
Date/Time of Note Date/Time of Note DATE: 04/04/19 TIME: 14:11 Assessment/Plan VTE Prophylaxis Risk score (from Nsg)>0 risk: 3 Pharmacological prophylaxis: heparin Lines/Catheters [facility]from [facility] Saline Lock Urinary Cath still in place: No Assessment/Plan Hospital Course 28 yo man with h/o valve replacements and PPM following endocarditis in 2017; and chronic pulmonary embolism who presented with fever, tachypnea, and hypoxia with pulmonary infiltrates following IV meth use #IVC filter thrombus. - IVC filter placed last admission (not indicated at the time and not indicated now). - Now filter has developed a 1x1 cm thrombus at the tip, which is a contraindication for removal. - Will start heparin gtt for 5-[address] abdomen. - Will need to remove this IVC filter prior to discharge to prevent further iatrogenic complications. #Tricuspid valve vegetation - Patient had possible tricuspid valve vegetations last admission also. MADINA was indeterminate. - Will defer antibiotics to ID. Current recommendation is a 42 day course of ceftriaxone (until May 04) for likely endocarditis. # Acute hypoxic respiratory failure with fever/sepsis - Secondary to chronic pulmonary embolism, noncompliant with Eliquis after last hospital discharge. - antiphospholipid antibody and protein C was ordered, although hypercoagulable workup is usually not done during treatment of active thrombosis. - Currently on heparin gtt until IVC thrombus has resolved. When heparin gtt is stopped, resume Eliquis indefinitely. - Patient has been requiring 2L oxygen at rest while inpatient. However, note that last time he left AMA he was living at his mother's house somewhat functional on room air for over a month. - Continue antitussives as needed for cough # CLAUDIA: Resolving now Dispo: Heparin gtt until IVC filter can be removed, then complete a course of IV ceftriaxone. Result Diagram: 04/04/1931 04/04/19530 Results 24hrs Laboratory Tests Test 04/03/19 21:05 04/04/19 05:31 04/04/19 10:01 04/04/19 10:21 Activated 71.8 *H 56.3 H Partial Thrombo plast Time White Blood 13.9 H Count Red Blood Count 3.18 L Hemoglobin 8.3 L Hematocrit 27.1 L Mean 85.2 Corpuscular Volume Mean 26.1 L Corpuscular Hemoglobin Mean 30.6 L Corpuscular Hemoglobin Conc ent Red Cell 15.9 H Distribution Width Platelet Count 386 Mean Platelet 9.4 Volume Immature 1.400 H Granulocytes % Neutrophils % 80.5 H Lymphocytes % 10.5 L Monocytes % 7.5 Eosinophils % 0.0 Basophils % 0.1 Nucleated Red 0.0 Blood Cells % Immature 0.200 H Granulocytes # Neutrophils # 11.2 H Lymphocytes # 1.5 Monocytes # 1.1 H Eosinophils # 0.0 Basophils # 0.0 Nucleated Red 0.0 Blood Cells # Absolute 0.088 Reticulocyte Count Percent 2.9 H Reticulocyte Count Sodium Level 138 Potassium Level 4.1 Chloride Level 104 Carbon Dioxide 28 Level Anion Gap 6 Blood Urea 39 H Nitrogen Creatinine 0.93 Est Glomerular > 60 Filtrat Rate mL/min Glucose Level 120 # Calcium Level 8.8 Phosphorus 3.6 Level Magnesium Level 1.6 L Total Bilirubin 0.4 Direct 0.00 Bilirubin Indirect 0.4 Bilirubin Aspartate Amino 26 Transf (AST/SGO T) Alanine 32 Aminotransferas e (ALT/SGPT) Alkaline 220 H Phosphatase Total Protein 8.3 H Albumin 3.3 Globulin 5.00 H Albumin/Globuli 0.66 n Ratio Lab Scanned REFERENCE LAB REFERENCE LAB Report Test 04/04/19 12:24 04/04/19 12:40 04/04/19 12:45 Lab Scanned REFERENCE LAB REFERENCE LAB REFERENCE LAB Report Subjective 24 Hr Interval Summary Constitutional: no complaints Exam/Review of Systems Exam Vitals Vital Signs Date Temp Pulse Resp B/P (MAP) Pulse Ox O2 O2 Flow FiO2 Time Delivery Rate 04/04/19 92 12:53 04/04/19 98.7 19 126/75 96 11:05 (92) 04/04/19 Nasal 2.0 10:06 Cannula 04/04/19 30 10:06 Intake and Output 04/03/19 04/03/19 04/04/19 1515:00 23:00 07:00 IntakeIntake Total 1600 ml 1300 ml OutputOutput Total 1400 ml 1350 ml 2400 ml BalanceBalance 200 ml -50 ml -2400 ml Constitutional: alert, oriented Respiratory: clear to auscultation Cardiovascular: regular rate and rhythm Gastrointestinal: soft; No distended Musculoskeletal: nl extremities to inspection Results Results 24hrs Laboratory Tests Test 04/03/19 21:05 04/04/19 05:31 04/04/19 10:01 04/04/19 10:21 Activated 71.8 *H 56.3 H Partial Thrombo plast Time White Blood 13.9 H Count Red Blood Count 3.18 L Hemoglobin 8.3 L Hematocrit 27.1 L Mean 85.2 Corpuscular Volume Mean 26.1 L Corpuscular Hemoglobin Mean 30.6 L Corpuscular Hemoglobin Conc ent Red Cell 15.9 H Distribution Width Platelet Count 386 Mean Platelet 9.4 Volume Immature 1.400 H Granulocytes % Neutrophils % 80.5 H Lymphocytes % 10.5 L Monocytes % 7.5 Eosinophils % 0.0 Basophils % 0.1 Nucleated Red 0.0 Blood Cells % Immature 0.200 H Granulocytes # Neutrophils # 11.2 H Lymphocytes # 1.5 Monocytes # 1.1 H Eosinophils # 0.0 Basophils # 0.0 Nucleated Red 0.0 Blood Cells # Absolute 0.088 Reticulocyte Count Percent 2.9 H Reticulocyte Count Sodium Level 138 Potassium Level 4.1 Chloride Level 104 Carbon Dioxide 28 Level Anion Gap 6 Blood Urea 39 H Nitrogen Creatinine 0.93 Est Glomerular > 60 Filtrat Rate mL/min Glucose Level 120 # Calcium Level 8.8 Phosphorus 3.6 Level Magnesium Level 1.6 L Total Bilirubin 0.4 Direct 0.00 Bilirubin Indirect 0.4 Bilirubin Aspartate Amino 26 Transf (AST/SGO T) Alanine 32 Aminotransferas e (ALT/SGPT) Alkaline 220 H Phosphatase Total Protein 8.3 H Albumin 3.3 Globulin 5.00 H Albumin/Globuli 0.66 n Ratio Lab Scanned REFERENCE LAB REFERENCE LAB Report Test 04/04/19 12:24 04/04/19 12:40 04/04/19 12:45 Lab Scanned REFERENCE LAB REFERENCE LAB REFERENCE LAB Report Medications Medication Current Medications IV Flush (NS 3 ml) 3 ml PER PROTOCOL IV ; Start 03/17/19 at 15:00 Furosemide (Lasix) 20 mg DAILY PO Last administered on 04/04/19at 08:11; Admin Dose 20 MG; Start 03/20/19 at 09:00 Ceftriaxone Sodium 50 ml @ 100 mls/hr Q24H IVPB Last administered on 04/04/19at 10:35; Admin Dose 100 MLS/HR; Start 03/23/19 at 11:00 Guaifenesin/ Dextromethorphan (Robitussin Dm Liquid Cup) 5 ml Q4H PRN PO COUGH Last administered on 04/02/19 22:41; Admin Dose 5 ML; Start 03/23/19 at 22:00 Phenol (Cepastat Lozenge) 1 lozenge Q1H PRN MT COUGH Last administered on 04/01/19 19:11; Admin Dose 1 LOZENGE; Start 03/24/19 at 13:30 Morphine Sulfate (morphine) 1 mg Q4H PRN IV SEVERE PAIN LEVEL 7-10 Last administered on 04/04/19 10:36; Admin Dose 1 MG; Start 03/24/19 at 16:00 Oxycodone/ Acetaminophen (Percocet (5/ 325)) 1 tab Q6H PRN PO .SEVERE PAIN 7-10 Last administered on 03/31/19 12:06; Admin Dose 1 TAB; Start 03/24/19 at 15:00 Fluconazole (Diflucan) 200 mg DAILY PO Last administered on 04/04/19 08:11; Admin Dose 200 MG; Start 03/27/19 at 11:30 Senna (Senokot) 1 tab BID PO Last administered on 04/04/19 08:11; Admin Dose 1 TAB; Start 03/27/19 at 21:00 Docusate Sodium (Colace) 100 mg BID PRN PO CONSTIPATION; Start 03/27/19 at 15:30 Levalbuterol (Xopenex Neb) 1.25 mg Q4H RESP THERAPY HHN Last administered on 04/04/19 14:06; Admin Dose 1.25 MG; Start 03/30/19 at 21:00 Ipratropium [place] (Atrovent 0.02% (Neb)) 0.5 mg Q4H RESP THERAPY HHN Last administered on 04/04/19 14:06; Admin Dose 0.5 MG; Start 03/30/19 at 21:00 Ondansetron HCl 8 mg/Dextrose 54 ml @ 108 mls/hr Q6H PRN IV NAUSEA AND/OR VOMITING Last administered on 03/31/19 21:03; Admin Dose 108 MLS/HR; Start 03/31/19 at 17:00 Apixaban (Eliquis) 5 mg BID PO Last administered on 04/02/19 08:12; Admin Dose 5 MG; Start 04/01/19 at 21:00; Status Hold Epoetin Jamey-epbx (Retacrit (Non-Esrd)) 10,000 unit MoWeFr@1700 SC Last administered on 04/02/19 17:39; Admin Dose 10,000 UNIT; Start 04/02/19 at 17:00 Heparin Sodium (Porcine) (Heparin (1000 Units/ml)) 6,600 unit PER PROTOCOL PRN IV aPTT<47 Last administered on 04/03/19 06:55; Admin Dose 6,600 UNIT; Start 04/02/19 at 15:30 Prednisone (Prednisone) 30 mg DAILY PO Last administered on 04/04/19 08:10; Admin Dose 30 MG; Start 04/04/19 at 09:00 Heparin Sodium (Porcine) (Heparin (1000 Units/ml)) 3,300 unit PER PROTOCOL PRN IV aPTT<47-57 Last administered on 04/04/19 06:44; Admin Dose 3,300 UNIT; Start 04/03/19 at 15:30 Heparin Sodium (Porcine) 250 ml @ 20.5 mls/hr PER PROTOCOL IV Last administered on 04/04/19 10:57; Admin Dose 23 MLS/HR; Start 04/03/19 at 22:30 YADIEL HILL April 04, 2019 14:12
[2019-04-04] MEDS ORDERED: MAGNESIUM OXIDE 400 MG TAB PO ONE (14:30)
--- NOTE | 2019-04-04 14:47 | CONS ---
Consult Date/Type/Reason Admit Date/Time March 17, 2019 at 15:13 Initial Consult Date 03/29/19 Type of Consult Pulmonary Requesting Provider: ROBY MILLER MD Date/Time of Note DATE: 04/04/19 TIME: 14:46 Subjective Patient is in no respiratory distress this morning Objective Vital Signs Date Temp Pulse Resp B/P (MAP) Pulse Ox O2 O2 Flow FiO2 Time Delivery Rate 04/04/19 92 12:53 04/04/19 98.7 19 126/75 96 11:05 (92) 04/04/19 Nasal 2.0 10:06 Cannula 04/04/19 30 10:06 Intake and Output 04/03/19 04/03/19 04/04/19 1515:00 23:00 07:00 IntakeIntake Total 1600 ml 1300 ml OutputOutput Total 1400 ml 1350 ml 2400 ml BalanceBalance 200 ml -50 ml -2400 ml Exam GENERAL: VITAL SIGNS: per chart NECK: Supple. No JVD or lymphadenopathy. CARDIAC EXAM: S1, S2. 2 out of 6 systolic ejection murmur CHEST: clear bilaterally, No added sounds, rales or wheezes ABDOMEN: Soft, nontender. No guarding or rebound. EXTREMITIES: No cyanosis, clubbing or edema. NEUROLOGIC: Generalized weakness. No focal deficits. Vent Setting Fraction of Inspired Oxygen pe: 30 Results/Medications Result Diagram: 04/04/1931 04/04/1931 Results 24 hrs Laboratory Tests Test 04/03/19 21:05 04/04/19 05:31 04/04/19 10:01 04/04/19 10:21 Activated 71.8 *H 56.3 H Partial Thrombo plast Time White Blood 13.9 H Count Red Blood Count 3.18 L Hemoglobin 8.3 L Hematocrit 27.1 L Mean 85.2 Corpuscular Volume Mean 26.1 L Corpuscular Hemoglobin Mean 30.6 L Corpuscular Hemoglobin Conc ent Red Cell 15.9 H Distribution Width Platelet Count 386 Mean Platelet 9.4 Volume Immature 1.400 H Granulocytes % Neutrophils % 80.5 H Lymphocytes % 10.5 L Monocytes % 7.5 Eosinophils % 0.0 Basophils % 0.1 Nucleated Red 0.0 Blood Cells % Immature 0.200 H Granulocytes # Neutrophils # 11.2 H Lymphocytes # 1.5 Monocytes # 1.1 H Eosinophils # 0.0 Basophils # 0.0 Nucleated Red 0.0 Blood Cells # Absolute 0.088 Reticulocyte Count Percent 2.9 H Reticulocyte Count Sodium Level 138 Potassium Level 4.1 Chloride Level 104 Carbon Dioxide 28 Level Anion Gap 6 Blood Urea 39 H Nitrogen Creatinine 0.93 Est Glomerular > 60 Filtrat Rate mL/min Glucose Level 120 # Calcium Level 8.8 Phosphorus 3.6 Level Magnesium Level 1.6 L Total Bilirubin 0.4 Direct 0.00 Bilirubin Indirect 0.4 Bilirubin Aspartate Amino 26 Transf (AST/SGO T) Alanine 32 Aminotransferas e (ALT/SGPT) Alkaline 220 H Phosphatase Total Protein 8.3 H Albumin 3.3 Globulin 5.00 H Albumin/Globuli 0.66 n Ratio Lab Scanned REFERENCE LAB REFERENCE LAB Report Test 04/04/19 12:24 04/04/19 12:40 04/04/19 12:45 Lab Scanned REFERENCE LAB REFERENCE LAB REFERENCE LAB Report Medications Current Medications IV Flush (NS 3 ml) 3 ml PER PROTOCOL IV ; Start 03/17/19 at 15:00 Furosemide (Lasix) 20 mg DAILY PO Last administered on 04/04/19at 08:11; Admin Dose 20 MG; Start 03/20/19 at 09:00 Ceftriaxone Sodium 50 ml @ 100 mls/hr Q24H IVPB Last administered on 04/04/19 10:35; Admin Dose 100 MLS/HR; Start 03/23/19 at 11:00 Guaifenesin/ Dextromethorphan (Robitussin Dm Liquid Cup) 5 ml Q4H PRN PO COUGH Last administered on 04/02/19 22:41; Admin Dose 5 ML; Start 03/23/19 at 22:00 Phenol (Cepastat Lozenge) 1 lozenge Q1H PRN MT COUGH Last administered on 04/01/19 19:11; Admin Dose 1 LOZENGE; Start 03/24/19 at 13:30 Morphine Sulfate (morphine) 1 mg Q4H PRN IV SEVERE PAIN LEVEL 7-10 Last administered on 04/04/19 10:36; Admin Dose 1 MG; Start 03/24/19 at 16:00 Oxycodone/ Acetaminophen (Percocet (5/ 325)) 1 tab Q6H PRN PO .SEVERE PAIN 7-10 Last administered on 5/27/19at 12:06; Admin Dose 1 TAB; Start 03/24/19 at 15:00 Fluconazole (Diflucan) 200 mg DAILY PO Last administered on 04/04/19 08:11; Admin Dose 200 MG; Start 03/27/19 at 11:30 Senna (Senokot) 1 tab BID PO Last administered on 04/04/19 08:11; Admin Dose 1 TAB; Start 03/27/19 at 21:00 Docusate Sodium (Colace) 100 mg BID PRN PO CONSTIPATION; Start 03/27/19 at 15:30 Levalbuterol (Xopenex Neb) 1.25 mg Q4H RESP THERAPY HHN Last administered on 04/04/19 14:06; Admin Dose 1.25 MG; Start 03/30/19 at 21:00 Ipratropium [place] (Atrovent 0.02% (Neb)) 0.5 mg Q4H RESP THERAPY HHN Last administered on 04/04/19 14:06; Admin Dose 0.5 MG; Start 03/30/19 at 21:00 Ondansetron HCl 8 mg/Dextrose 54 ml @ 108 mls/hr Q6H PRN IV NAUSEA AND/OR VOMITING Last administered on 03/31/19 21:03; Admin Dose 108 MLS/HR; Start 03/31/19 at 17:00 Apixaban (Eliquis) 5 mg BID PO Last administered on 04/02/19 08:12; Admin Dose 5 MG; Start 04/01/19 at 21:00; Status Hold Epoetin Jamey-epbx (Retacrit (Non-Esrd)) 10,000 unit MoWeFr@1700 SC Last administered on 04/02/19 17:39; Admin Dose 10,000 UNIT; Start 04/02/19 at 17:00 Heparin Sodium (Porcine) (Heparin (1000 Units/ml)) 6,600 unit PER PROTOCOL PRN IV aPTT<47 Last administered on 04/03/19 06:55; Admin Dose 6,600 UNIT; Start 04/02/19 at 15:30 Prednisone (Prednisone) 30 mg DAILY PO Last administered on 04/04/19 08:10; Admin Dose 30 MG; Start 04/04/19 at 09:00 Heparin Sodium (Porcine) (Heparin (1000 Units/ml)) 3,300 unit PER PROTOCOL PRN IV aPTT<47-57 Last administered on 04/04/19at 06:44; Admin Dose 3,300 UNIT; Start 04/03/19 at 15:30 Heparin Sodium (Porcine) 250 ml @ 20.5 mls/hr PER PROTOCOL IV Last administered on 04/04/19at 10:57; Admin Dose 23 MLS/HR; Start 04/03/19 at 22:30 Assessment/Plan Hospital Course (Demo Recall) Assessment 1. Endocarditis with septic emboli, History of tricuspid valve replacement 2. History of intravenous drug abuse 3. Transient hemoptysis now improved currently off anticoagulation Plan 1. Continue antibiotics 2. Continue cardiac recommendations 3. Supplemental O2 as needed CAROLINA BEATTY MD, [facility] April 04, 2019 14:47
[2019-04-04] MEDS: EPOETIN ALFA-EPBX (NON-ESRD 10,000 UNIT/ML VIAL SC SCH (16:19)
[2019-04-05] VITALS (10 sets, daily range): BP systolic 116–129; BP diastolic 53–81; PULSE 61–118; RESP 18–20
[2019-04-05] MEDS: morphine 2 MG INJ IV PRN ×5 (01:10→21:27)
[2019-04-05] MEDS: LEVALBUTEROL (NEB) 1.25 MG/0.5 ML AMP HHN SCH ×6 (01:40→20:44)
[2019-04-05] MEDS: IPRATROPIUM (NEB) 0.5 MG/2.5 ML AMP HHN SCH ×6 (01:40→20:44)
[2019-04-05] MEDS: SENNA TAB PO SCH ×2 (09:58→21:26)
[2019-04-05] MEDS: DOCUSATE SODIUM 100 MG CAP PO PRN (09:58)
[2019-04-05] MEDS: CEPASTAT LOZENGE MT PRN ×3 (09:58→21:26)
[2019-04-05] MEDS: FLUCONAZOLE 200 MG TAB PO SCH (09:58)
[2019-04-05] MEDS: predniSONE 10 MG TAB PO SCH (09:58)
[2019-04-05] MEDS: FUROSEMIDE 20 MG TAB PO SCH (09:58)
[2019-04-05] MEDS: GUAIFENESIN/DM 5ML CUP PO PRN ×3 (09:58→21:26)
[2019-04-05] MEDS: OXYCODONE/ACETAMINOPHEN (5/325) TAB PO PRN ×2 (09:59→16:29)
[2019-04-05] MEDS: CEFTRIAXONE 2 GM/50 ML (PMX) 50 ML IVPB SCH (10:00)
[2019-04-05] MEDS: HEPARIN 25000 UNITS/250 ML 250 ML IV SCH ×2 (11:39→22:27)
--- NOTE | 2019-04-05 11:52 | PN ---
Date/Time of Note Date/Time of Note DATE: 04/05/19 TIME: 11:50 Assessment/Plan VTE Prophylaxis Risk score (from Ns)>0 risk: 2 SCD applied (from [facility] [place]): No SCD contraindicated: other (per primary MD) Pharmacological prophylaxis: heparin Lines/Catheters IV Catheter Type (from [facility]): Saline Lock Urinary Cath still in place: No Assessment/Plan Assessment/Plan Pt continues on treatment for SBE and PE. No new suggestions. Result Diagram: 04/05/1951204/05/19512 Results 24hrs Laboratory Tests Test 04/04/19 12:24 04/04/19 12:40 04/04/19 12:45 04/04/19 13:48 Lab Scanned REFERENCE LAB REFERENCE LAB REFERENCE LAB Report Activated 85.1 *H Partial Thrombo plast Time Test 04/04/19 20:35 04/05/19 05:13 Activated 83.8 *H 69.5 H Partial Thrombo plast Time White Blood 15.5 H Count Red Blood Count 3.26 L Hemoglobin 8.7 L Hematocrit 27.7 L Mean 85.0 Corpuscular Volume Mean 26.7 L Corpuscular Hemoglobin Mean 31.4 L Corpuscular Hemoglobin Conc ent Red Cell 16.1 H Distribution Width Platelet Count 405 Mean Platelet 9.4 Volume Immature 4.100 H Granulocytes % Neutrophils % 66.7 Lymphocytes % 21.1 Monocytes % 7.4 Eosinophils % 0.3 Basophils % 0.4 Nucleated Red 0.6 H Blood Cells % Immature 0.630 H Granulocytes # Neutrophils # 10.3 H Lymphocytes # 3.3 H Monocytes # 1.1 H Eosinophils # 0.1 Basophils # 0.1 Nucleated Red 0.1 H Blood Cells # Sodium Level 138 Potassium Level 4.0 Chloride Level 103 Carbon Dioxide 28 Level Anion Gap 7 Blood Urea 39 H Nitrogen Creatinine 1.04 Est Glomerular > 60 Filtrat Rate mL/min Glucose Level 104 Calcium Level 8.5 Total Bilirubin 0.3 Direct 0.00 Bilirubin Indirect 0.3 Bilirubin Aspartate Amino 29 Transf (AST/SGO T) Alanine 33 Aminotransferas e (ALT/SGPT) Alkaline 193 H Phosphatase Total Protein 8.5 H Albumin 3.2 L Globulin 5.30 H Albumin/Globuli 0.60 n Ratio Subjective 24 Hr Interval Summary Free Text/Dictation Pt is sleeping most of the time , especially after getting morphine Exam/Review of Systems Exam Vitals Vital Signs Date Temp Pulse Resp B/P (MAP) Pulse Ox O2 O2 Flow FiO2 Time Delivery Rate 04/05/19 97.6 61 18 116/53 96 Room Air 11:44 (74) 04/05/19 3.0 08:48 04/04/19 30 10:06 Intake and Output 04/04/19 04/04/19 04/05/19 1515:00 23:00 07:00 IntakeIntake Total 1900 ml 3000 ml 2000 ml OutputOutput Total 2400 ml 1800 ml 3450 ml BalanceBalance -500 ml 1200 ml -1450 ml Constitutional: other (sleeping) ENMT: other (pallor) Neck: supple Respiratory: clear to auscultation, diminished breath sounds Cardiovascular: regular rate and rhythm (rapid rate) Gastrointestinal: soft, non-tender Skin: other (tattooes) Results Results 24hrs Laboratory Tests Test 04/04/19 12:24 04/04/19 12:40 04/04/19 12:45 04/04/19 13:48 Lab Scanned REFERENCE LAB REFERENCE LAB REFERENCE LAB Report Activated 85.1 *H Partial Thrombo plast Time Test 04/04/19 20:35 04/05/19 05:13 Activated 83.8 *H 69.5 H Partial Thrombo plast Time White Blood 15.5 H Count Red Blood Count 3.26 L Hemoglobin 8.7 L Hematocrit 27.7 L Mean 85.0 Corpuscular Volume Mean 26.7 L Corpuscular Hemoglobin Mean 31.4 L Corpuscular Hemoglobin Conc ent Red Cell 16.1 H Distribution Width Platelet Count 405 Mean Platelet 9.4 Volume Immature 4.100 H Granulocytes % Neutrophils % 66.7 Lymphocytes % 21.1 Monocytes % 7.4 Eosinophils % 0.3 Basophils % 0.4 Nucleated Red 0.6 H Blood Cells % Immature 0.630 H Granulocytes # Neutrophils # 10.3 H Lymphocytes # 3.3 H Monocytes # 1.1 H Eosinophils # 0.1 Basophils # 0.1 Nucleated Red 0.1 H Blood Cells # Sodium Level 138 Potassium Level 4.0 Chloride Level 103 Carbon Dioxide 28 Level Anion Gap 7 Blood Urea 39 H Nitrogen Creatinine 1.04 Est Glomerular > 60 Filtrat Rate mL/min Glucose Level 104 Calcium Level 8.5 Total Bilirubin 0.3 Direct 0.00 Bilirubin Indirect 0.3 Bilirubin Aspartate Amino 29 Transf (AST/SGO T) Alanine 33 Aminotransferas e (ALT/SGPT) Alkaline 193 H Phosphatase Total Protein 8.5 H Albumin 3.2 L Globulin 5.30 H Albumin/Globuli 0.60 n Ratio Medications Medication Current Medications IV Flush (NS 3 ml) 3 ml PER PROTOCOL IV ; Start 03/17/19 at 15:00 Furosemide (Lasix) 20 mg DAILY PO Last administered on 04/05/19 09:58; Admin Dose 20 MG; Start 03/20/19 at 09:00 Ceftriaxone Sodium 50 ml @ 100 mls/hr Q24H IVPB Last administered on 04/05/19 10:00; Admin Dose 100 MLS/HR; Start 03/23/19 at 11:00 Guaifenesin/ Dextromethorphan (Robitussin Dm Liquid Cup) 5 ml Q4H PRN PO COUGH Last administered on 04/05/19 09:58; Admin Dose 5 ML; Start 03/23/19 at 22:00 Phenol (Cepastat Lozenge) 1 lozenge Q1H PRN MT COUGH Last administered on 04/05/19 09:58; Admin Dose 1 LOZENGE; Start 03/24/19 at 13:30 Morphine Sulfate (morphine) 1 mg Q4H PRN IV SEVERE PAIN LEVEL 7-10 Last administered on 04/05/19 09:59; Admin Dose 1 MG; Start 03/24/19 at 16:00 Oxycodone/ Acetaminophen (Percocet (5/ 325)) 1 tab Q6H PRN PO .SEVERE PAIN 7-10 Last administered on 04/05/19 09:59; Admin Dose 1 TAB; Start 03/24/19 at 15:00 Fluconazole (Diflucan) 200 mg DAILY PO Last administered on 04/05/19 09:58; Admin Dose 200 MG; Start 03/27/19 at 11:30 Senna (Senokot) 1 tab BID PO Last administered on 04/05/19 09:58; Admin Dose 1 TAB; Start 03/27/19 at 21:00 Docusate Sodium (Colace) 100 mg BID PRN PO CONSTIPATION Last administered on 04/05/19 09:58; Admin Dose 100 MG; Start 03/27/19 at 15:30 Levalbuterol (Xopenex Neb) 1.25 mg Q4H RESP THERAPY HHN Last administered on 04/05/19 08:47; Admin Dose 1.25 MG; Start 03/30/19 at 21:00 Ipratropium [place] (Atrovent 0.02% (Neb)) 0.5 mg Q4H RESP THERAPY HHN Last ad ministered on 04/05/19 08:47; Admin Dose 0.5 MG; Start 03/30/19 at 21:00 Ondansetron HCl 8 mg/Dextrose 54 ml @ 108 mls/hr Q6H PRN IV NAUSEA AND/OR VOMITING Last administered on 03/31/19 21:03; Admin Dose 108 MLS/HR; Start 03/31/19 at 17:00 Apixaban (Eliquis) 5 mg BID PO Last administered on 04/02/19 08:12; Admin Dose 5 MG; Start 04/01/19 at 21:00; Status Hold Epoetin Jamey-epbx (Retacrit (Non-Esrd)) 10,000 unit MoWeFr@1700 SC Last administered on 04/04/19 16:19; Admin Dose 10,000 UNIT; Start 04/02/19 at 17:00 Heparin Sodium (Porcine) (Heparin (1000 Units/ml)) 6,600 unit PER PROTOCOL PRN IV aPTT<47 Last administered on 04/03/19 06:55; Admin Dose 6,600 UNIT; Start 04/02/19 at 15:30 Prednisone (Prednisone) 30 mg DAILY PO Last administered on 04/05/19 09:58; Admin Dose 30 MG; Start 04/04/19 at 09:00 Heparin Sodium (Porcine) (Heparin (1000 Units/ml)) 3,300 unit PER PROTOCOL PRN IV aPTT<47-57 Last administered on 04/04/19 06:44; Admin Dose 3,300 UNIT; Start 04/03/19 at 15:30 Heparin Sodium (Porcine) 250 ml @ 20.5 mls/hr PER PROTOCOL IV Last administered on 04/05/19 11:39; Admin Dose 23 MLS/HR; Start 04/03/19 at 22:30 LUIS HARDIN MD Apr 05, 2019 11:52
--- NOTE | 2019-04-05 15:54 | CONS ---
Consult Date/Type/Reason Admit Date/Time March 17, 2019 at 15:13 Initial Consult Date 03/29/19 Type of Consultation: Pulm Requesting Provider: ROBY MILLER MD Date/Time of Note DATE: 04/05/19 TIME: 15:52 Subjective No events. No c/o Objective Vitals Vital Signs Date Temp Pulse Resp B/P (MAP) Pulse Ox O2 O2 Flow FiO2 Time Delivery Rate 04/05/19 97.6 109 18 117/71 95 Nasal 15:11 (86) Cannula 04/05/19 2.0 12:00 04/04/19 30 10:06 Intake and Output 04/04/19 04/04/19 04/05/19 1515:00 23:00 07:00 IntakeIntake Total 1900 ml 3000 ml 2000 ml OutputOutput Total 2400 ml 1800 ml 3450 ml BalanceBalance -500 ml 1200 ml -1450 ml Exam NECK: Supple. No JVD or lymphadenopathy. CARDIAC EXAM: S1, S2. 2 out of 6 systolic ejection murmur CHEST: clear bilaterally, No added sounds, rales or wheezes ABDOMEN: Soft, nontender. No guarding or rebound. EXTREMITIES: No cyanosis, clubbing or edema. NEUROLOGIC: Generalized weakness. No focal deficits. Results/Medications Result Diagram: 04/05/19 0513 04/05/19 0513 Results 24 hrs Laboratory Tests Test 04/04/19 20:35 04/05/19 05:13 Activated Partial Thromboplast Time 83.8 *H 69.5 H White Blood Count 15.5 H Red Blood Count 3.26 L Hemoglobin 8.7 L Hematocrit 27.7 L Mean Corpuscular Volume 85.0 Mean Corpuscular Hemoglobin 26.7 L Mean Corpuscular Hemoglobin Concent 31.4 L Red Cell Distribution Width 16.1 H Platelet Count 405 Mean Platelet Volume 9.4 Immature Granulocytes % 4.100 H Neutrophils % 66.7 Lymphocytes % 21.1 Monocytes % 7.4 Eosinophils % 0.3 Basophils % 0.4 Nucleated Red Blood Cells % 0.6 H Immature Granulocytes # 0.630 H Neutrophils # 10.3 H Lymphocytes # 3.3 H Monocytes # 1.1 H Eosinophils # 0.1 Basophils # 0.1 Nucleated Red Blood Cells # 0.1 H Sodium Level 138 Potassium Level 4.0 Chloride Level 103 Carbon Dioxide Level 28 Anion Gap 7 Blood Urea Nitrogen 39 H Creatinine 1.04 Est Glomerular Filtrat Rate mL/min > 60 Glucose Level 104 Calcium Level 8.5 Total Bilirubin 0.3 Direct Bilirubin 0.00 Indirect Bilirubin 0.3 Aspartate Amino Transf (AST/SGOT) 29 Alanine Aminotransferase (ALT/SGPT) 33 Alkaline Phosphatase 193 H Total Protein 8.5 H Albumin 3.2 L Globulin 5.30 H Albumin/Globulin Ratio 0.60 Home Meds Reported Medications Aspirin* (Aspirin* EC) 81 Mg Tablet.dr, 81 MG PO DAILY, TAB TAKE 2 OR 3 TIMES A DAY 04/27/18 Medications Current Medications IV Flush (NS 3 ml) 3 ml PER PROTOCOL IV ; Start 03/17/19 at 15:00 Furosemide (Lasix) 20 mg DAILY PO Last administered on 04/05/19 09:58; Admin Dose 20 MG; Start 03/20/19 at 09:00 Ceftriaxone Sodium 50 ml @ 100 mls/hr Q24H IVPB Last administered on 04/05/19 10:00; Admin Dose 100 MLS/HR; Start 03/23/19 at 11:00 Guaifenesin/ Dextromethorphan (Robitussin Dm Liquid Cup) 5 ml Q4H PRN PO COUGH Last administered on 04/05/19 09:58; Admin Dose 5 ML; Start 03/23/19 at 22:00 Phenol (Cepastat Lozenge) 1 lozenge Q1H PRN MT COUGH Last administered on 04/05/19 09:58; Admin Dose 1 LOZENGE; Start 03/24/19 at 13:30 Morphine Sulfate (morphine) 1 mg Q4H PRN IV SEVERE PAIN LEVEL 7-10 Last administered on 04/05/19 09:59; Admin Dose 1 MG; Start 03/24/19 at 16:00 Oxycodone/ Acetaminophen (Percocet (5/ 325)) 1 tab Q6H PRN PO .SEVERE PAIN 7-10 Last administered on 04/05/19 09:59; Admin Dose 1 TAB; Start 03/24/19 at 15:00 Fluconazole (Diflucan) 200 mg DAILY PO Last administered on 04/05/19 09:58; Admin Dose 200 MG; Start 03/27/19 at 11:30 Senna (Senokot) 1 tab BID PO Last administered on 04/05/19 09:58; Admin Dose 1 TAB; Start 03/27/19 at 21:00 Docusate Sodium (Colace) 100 mg BID PRN PO CONSTIPATION Last administered on 04/05/19 09:58; Admin Dose 100 MG; Start 03/27/19 at 15:30 Levalbuterol (Xopenex Neb) 1.25 mg Q4H RESP THERAPY HHN Last administered on 04/05/19 08:47; Admin Dose 1.25 MG; Start 03/30/19 at 21:00 Ipratropium [place] (Atrovent 0.02% (Neb)) 0.5 mg Q4H RESP THERAPY HHN Last administered on 04/05/19 08:47; Admin Dose 0.5 MG; Start 03/30/19 at 21:00 Ondansetron HCl 8 mg/Dextrose 54 ml @ 108 mls/hr Q6H PRN IV NAUSEA AND/OR VOMITING Last administered on 03/31/19 21:03; Admin Dose 108 MLS/HR; Start 03/31/19 at 17:00 Apixaban (Eliquis) 5 mg BID PO Last administered on 04/02/19 08:12; Admin Dose 5 MG; Start 04/01/19 at 21:00; Status Hold Epoetin Jamey-epbx (Retacrit (Non-Esrd)) 10,000 unit MoWeFr@1700 SC Last administered on 04/04/19 16:19; Admin Dose 10,000 UNIT; Start 04/02/19 at 17:00 Heparin Sodium (Porcine) (Heparin (1000 Units/ml)) 6,600 unit PER PROTOCOL PRN IV aPTT<47 Last administered on 04/03/19 06:55; Admin Dose 6,600 UNIT; Start 04/02/19 at 15:30 Prednisone (Prednisone) 30 mg DAILY PO Last administered on 04/05/19 09:58; Admin Dose 30 MG; Start 04/04/19 at 09:00 Heparin Sodium (Porcine) (Heparin (1000 Units/ml)) 3,300 unit PER PROTOCOL PRN IV aPTT<47-57 Last administered on 04/04/19 06:44; Admin Dose 3,300 UNIT; Start 04/03/19 at 15:30 Heparin Sodium (Porcine) 250 ml @ 20.5 mls/hr PER PROTOCOL IV Last administered on 04/05/19at 11:39; Admin Dose 23 MLS/HR; Start 04/03/19 at 22:30 Assessment/Plan Assessment/Plan (Daily) IMP: 1. Endocarditis with septic emboli, History of tricuspid valve replacement 2. History of intravenous drug abuse 3. Transient hemoptysis now improved currently off anticoagulation 4. IVC thrombus RECS: 1. Continue antibiotics 2. Continue cardiac recommendations 3. Supplemental O2 as needed MILO DONG MD Apr 05, 2019 15:54
--- NOTE | 2019-04-05 15:58 | PN ---
Date/Time of Note Date/Time of Note DATE: 04/05/19 TIME: 15:48 Assessment/Plan VTE Prophylaxis Risk score (from [facility] [place])>0 risk: 2 SCD applied (from [facility] [place]): Yes Pharmacological prophylaxis: heparin Lines/Catheters IV Catheter Type (from [facility] Saline Lock Urinary Cath still in place: No Assessment/Plan Hospital Course Assessment and plan 1. IVC filter thrombus. - IVC filter placed last admission (not indicated at the time and not indicated now). - filter has developed a 1x1 cm thrombus at the tip, which is a contraindication for removal. - continue heparin - Plan to remove this IVC filter prior to discharge to prevent complications. 2. Tricuspid valve vegetation (endocarditis) - Patient had possible tricuspid valve vegetations last admission [place]AD[place] was indeterminate. -ABX per ID . Current recommendation is a 42 day course of ceftriaxone (until May 04) for likely endocarditis. 3. Acute hypoxic respiratory failure with fever/sepsis - Secondary to chronic pulmonary embolism, noncompliant with Eliquis after last hospital discharge. - antiphospholipid antibody and protein C was ordered, (hypercoagulable workup is usually not done during treatment of active thrombosis). - On heparin for now and eventual transition to Eliquis indefinitely. - Patient has been requiring 2L oxygen at rest while inpatient. note that last time he left AMA he was living at his mother's house somewhat functional on room air for over a month. - Continue antitussives as needed for cough 4. CLAUDIA: - Resolving - Monitor DISPO/PLAN: continue abx. Will see for possible placement. f/u case management Discussed POC with Dr. Massey Result Diagram: 04/05/1913 04/05/19512 Results 24hrs Laboratory Tests Test 04/04/19 20:35 04/05/19 05:13 Activated Partial Thromboplast Time 83.8 *H 69.5 H White Blood Count 15.5 H Red Blood Count 3.26 L Hemoglobin 8.7 L Hematocrit 27.7 L Mean Corpuscular Volume 85.0 Mean Corpuscular Hemoglobin 26.7 L Mean Corpuscular Hemoglobin Concent 31.4 L Red Cell Distribution Width 16.1 H Platelet Count 405 Mean Platelet Volume 9.4 Immature Granulocytes % 4.100 H Neutrophils % 66.7 Lymphocytes % 21.1 Monocytes % 7.4 Eosinophils % 0.3 Basophils % 0.4 Nucleated Red Blood Cells % 0.6 H Immature Granulocytes # 0.630 H Neutrophils # 10.3 H Lymphocytes # 3.3 H Monocytes # 1.1 H Eosinophils # 0.1 Basophils # 0.1 Nucleated Red Blood Cells # 0.1 H Sodium Level 138 Potassium Level 4.0 Chloride Level 103 Carbon Dioxide Level 28 Anion Gap 7 Blood Urea Nitrogen 39 H Creatinine 1.04 Est Glomerular Filtrat Rate mL/min > 60 Glucose Level 104 Calcium Level 8.5 Total Bilirubin 0.3 Direct Bilirubin 0.00 Indirect Bilirubin 0.3 Aspartate Amino Transf (AST/SGOT) 29 Alanine Aminotransferase (ALT/SGPT) 33 Alkaline Phosphatase 193 H Total Protein 8.5 H Albumin 3.2 L Globulin 5.30 H Albumin/Globulin Ratio 0.60 Subjective 24 Hr Interval Summary Free Text/Dictation Patient refusing to be seen during visit Exam/Review of Systems Exam Vitals Vital Signs Date Temp Pulse Resp B/P (MAP) Pulse Ox O2 O2 Flow FiO2 Time Delivery Rate 04/05/19 97.6 109 18 117/71 95 Nasal 15:11 (86) Cannula 04/05/19 2.0 12:00 04/04/19 30 10:06 Intake and Output 04/04/19 04/04/19 04/05/19 1515:00 23:00 07:00 IntakeIntake Total 1900 ml 3000 ml 2000 ml OutputOutput Total 2400 ml 1800 ml 3450 ml BalanceBalance -500 ml 1200 ml -1450 ml Exam Patient refusing to be seen during visit Results Results 24hrs Laboratory Tests Test 04/04/19 20:35 04/05/19 05:13 Activated Partial Thromboplast Time 83.8 *H 69.5 H White Blood Count 15.5 H Red Blood Count 3.26 L Hemoglobin 8.7 L Hematocrit 27.7 L Mean Corpuscular Volume 85.0 Mean Corpuscular Hemoglobin 26.7 L Mean Corpuscular Hemoglobin Concent 31.4 L Red Cell Distribution Width 16.1 H Platelet Count 405 Mean Platelet Volume 9.4 Immature Granulocytes % 4.100 H Neutrophils % 66.7 Lymphocytes % 21.1 Monocytes % 7.4 Eosinophils % 0.3 Basophils % 0.4 Nucleated Red Blood Cells % 0.6 H Immature Granulocytes # 0.630 H Neutrophils # 10.3 H Lymphocytes # 3.3 H Monocytes # 1.1 H Eosinophils # 0.1 Basophils # 0.1 Nucleated Red Blood Cells # 0.1 H Sodium Level 138 Potassium Level 4.0 Chloride Level 103 Carbon Dioxide Level 28 Anion Gap 7 Blood Urea Nitrogen 39 H Creatinine 1.04 Est Glomerular Filtrat Rate mL/min > 60 Glucose Level 104 Calcium Level 8.5 Total Bilirubin 0.3 Direct Bilirubin 0.00 Indirect Bilirubin 0.3 Aspartate Amino Transf (AST/SGOT) 29 Alanine Aminotransferase (ALT/SGPT) 33 Alkaline Phosphatase 193 H Total Protein 8.5 H Albumin 3.2 L Globulin 5.30 H Albumin/Globulin Ratio 0.60 Medications Medication Current Medications IV Flush (NS 3 ml) 3 ml PER PROTOCOL IV ; Start 03/17/19 at 15:00 Furosemide (Lasix) 20 mg DAILY PO Last administered on 04/05/19 09:58; Admin Dose 20 MG; Start 03/20/19 at 09:00 Ceftriaxone Sodium 50 ml @ 100 mls/hr Q24H IVPB Last administered on 04/05/19 10:00; Admin Dose 100 MLS/HR; Start 03/23/19 at 11:00 Guaifenesin/ Dextromethorphan (Robitussin Dm Liquid Cup) 5 ml Q4H PRN PO COUGH Last administered on 04/05/19 09:58; Admin Dose 5 ML; Start 03/23/19 at 22:00 Phenol (Cepastat Lozenge) 1 lozenge Q1H PRN MT COUGH Last administered on 04/05/19 09:58; Admin Dose 1 LOZENGE; Start 03/24/19 at 13:30 Morphine Sulfate (morphine) 1 mg Q4H PRN IV SEVERE PAIN LEVEL 7-10 Last administered on 04/05/19 09:59; Admin Dose 1 MG; Start 03/24/19 at 16:00 Oxycodone/ Acetaminophen (Percocet (5/ 325)) 1 tab Q6H PRN PO .SEVERE PAIN 7-10 Last administered on 04/05/19 09:59; Admin Dose 1 TAB; Start 03/24/19 at 15:00 Fluconazole (Diflucan) 200 mg DAILY PO Last administered on 04/05/19 09:58; Admin Dose 200 MG; Start 03/27/19 at 11:30 Senna (Senokot) 1 tab BID PO Last administered on 04/05/19 09:58; Admin Dose 1 TAB; Start 03/27/19 at 21:00 Docusate Sodium (Colace) 100 mg BID PRN PO CONSTIPATION Last administered on 04/05/19 09:58; Admin Dose 100 MG; Start 03/27/19 at 15:30 Levalbuterol (Xopenex Neb) 1.25 mg Q4H RESP THERAPY HHN Last administered on 04/05/19 08:47; Admin Dose 1.25 MG; Start 03/30/19 at 21:00 Ipratropium [place] (Atrovent 0.02% (Neb)) 0.5 mg Q4H RESP THERAPY HHN Last administered on 04/05/19 08:47; Admin Dose 0.5 MG; Start 03/30/19 at 21:00 Ondansetron HCl 8 mg/Dextrose 54 ml @ 108 mls/hr Q6H PRN IV NAUSEA AND/OR VOMITING Last administered on 03/31/19 21:03; Admin Dose 108 MLS/HR; Start at 17:00 Apixaban (Eliquis) 5 mg BID PO Last administered on 04/02/19 08:12; Admin Dose 5 MG; Start 04/01/19 at 21:00; Status Hold Epoetin Jamey-epbx (Retacrit (Non-Esrd)) 10,000 unit MoWeFr@1700 SC Last administered on 04/04/19 16:19; Admin Dose 10,000 UNIT; Start 04/02/19 at 17:00 Heparin Sodium (Porcine) (Heparin (1000 Units/ml)) 6,600 unit PER PROTOCOL PRN IV aPTT<47 Last administered on 04/03/19 06:55; Admin Dose 6,600 UNIT; Start 04/02/19 at 15:30 Prednisone (Prednisone) 30 mg DAILY PO Last administered on 04/05/19 09:58; Admin Dose 30 MG; Start 04/04/19 at 09:00 Heparin Sodium (Porcine) (Heparin (1000 Units/ml)) 3,300 unit PER PROTOCOL PRN IV aPTT<47-57 Last administered on 04/04/19 06:44; Admin Dose 3,300 UNIT; Start 04/03/19 at 15:30 Heparin Sodium (Porcine) 250 ml @ 20.5 mls/hr PER PROTOCOL IV Last administered on 04/05/19at 11:39; Admin Dose 23 MLS/HR; Start 04/03/19 at 22:30 SHANNON WHITE NP Apr 05, 2019 15:58
[2019-04-06] VITALS (9 sets, daily range): BP systolic 115–129; BP diastolic 80–85; PULSE 102–116; RESP 18–20
[2019-04-06] MEDS: IPRATROPIUM (NEB) 0.5 MG/2.5 ML AMP HHN SCH ×6 (00:53→22:08)
[2019-04-06] MEDS: LEVALBUTEROL (NEB) 1.25 MG/0.5 ML AMP HHN SCH ×6 (00:53→22:08)
[2019-04-06] MEDS: CEPASTAT LOZENGE MT PRN ×4 (00:56→21:12)
[2019-04-06] MEDS: morphine 2 MG INJ IV PRN ×4 (01:29→21:13)
[2019-04-06] MEDS: SENNA TAB PO SCH ×2 (08:37→21:12)
[2019-04-06] MEDS: GUAIFENESIN/DM 5ML CUP PO PRN ×3 (08:37→21:12)
[2019-04-06] MEDS: FLUCONAZOLE 200 MG TAB PO SCH (08:38)
[2019-04-06] MEDS: FUROSEMIDE 20 MG TAB PO SCH (08:38)
[2019-04-06] MEDS: DOCUSATE SODIUM 100 MG CAP PO PRN (08:38)
[2019-04-06] MEDS: predniSONE 10 MG TAB PO SCH (08:38)
[2019-04-06] MEDS: HEPARIN 25000 UNITS/250 ML 250 ML IV SCH ×2 (09:33→21:30)
--- NOTE | 2019-04-06 10:31 | PN ---
Date/Time of Note Date/Time of Note DATE: 04/06/19 TIME: 10:28 Assessment/Plan VTE Prophylaxis Risk score (from Ns)>0 risk: 5 SCD applied (from [facility]): Yes Pharmacological prophylaxis: heparin Lines/Catheters IV [facility]from [facility] Saline Lock Urinary Cath still in place: No Assessment/Plan Assessment/Plan Hgb is up to 9. Pt stable. Agree with plans to remove IVC filter prior to discharge. Continue current plans. Result Diagram: 04/06/19 0508 04/06/19 0508 Results 24hrs Laboratory Tests Test 04/06/19 05:08 White Blood Count 16.0 H Red Blood Count 3.40 L Hemoglobin 9.0 L Hematocrit 28.4 L Mean Corpuscular Volume 83.5 Mean Corpuscular Hemoglobin 26.5 L Mean Corpuscular Hemoglobin Concent 31.7 L Red Cell Distribution Width 16.4 H Platelet Count 393 Mean Platelet Volume 9.5 Immature Granulocytes % 6.300 H Neutrophils % 62.0 Lymphocytes % 23.6 Monocytes % 7.2 Eosinophils % 0.5 Basophils % 0.4 Nucleated Red Blood Cells % 0.9 H Immature Granulocytes # 1.010 H Neutrophils # 9.9 H Lymphocytes # 3.8 H Monocytes # 1.2 H Eosinophils # 0.1 Basophils # 0.1 Nucleated Red Blood Cells # 0.2 H Activated Partial Thromboplast Time 84.2 *H Sodium Level 138 Potassium Level 4.0 Chloride Level 102 Carbon Dioxide Level 26 Anion Gap 10 Blood Urea Nitrogen 37 H Creatinine 1.12 Est Glomerular Filtrat Rate mL/min > 60 Glucose Level 117 Calcium Level 8.9 Phosphorus Level 4.4 Magnesium Level 1.7 Total Bilirubin 0.4 Direct Bilirubin 0.00 Indirect Bilirubin 0.4 Aspartate Amino Transf (AST/SGOT) 25 Alanine Aminotransferase (ALT/SGPT) 33 Alkaline Phosphatase 168 H Total Protein 8.4 H Albumin 3.4 Globulin 5.00 H Albumin/Globulin Ratio 0.68 Procalcitonin 0.18 H Subjective 24 Hr Interval Summary Free Text/Dictation Pt continues to sleep most of the time Exam/Review of Systems Exam Vitals Vital Signs Date Temp Pulse Resp B/P (MAP) Pulse Ox O2 O2 Flow FiO2 Time Delivery Rate 04/06/19 95 2.0 08:16 04/06/19 107 20 Nasal 08:16 Cannula 04/06/19 98.0 118/80 07:34 (93) 04/04/19 30 10:06 Intake and Output 04/05/19 04/05/19 04/06/19 1515:00 23:00 07:00 IntakeIntake Total 188 ml 3138 ml 1184 ml OutputOutput Total 4000 ml 1800 ml BalanceBalance 188 ml -862 ml -616 ml Constitutional: other (fatigued and chronically ill appearing) Head: normocephalic Eyes: other (mild pallor) Neck: supple Respiratory: clear to auscultation Cardiovascular: regular rate and rhythm (increased resting rate) Gastrointestinal: soft, non-tender Results Results 24hrs Laboratory Tests Test 04/06/19 05:08 White Blood Count 16.0 H Red Blood Count 3.40 L Hemoglobin 9.0 L Hematocrit 28.4 L Mean Corpuscular Volume 83.5 Mean Corpuscular Hemoglobin 26.5 L Mean Corpuscular Hemoglobin Concent 31.7 L Red Cell Distribution Width 16.4 H Platelet Count 393 Mean Platelet Volume 9.5 Immature Granulocytes % 6.300 H Neutrophils % 62.0 Lymphocytes % 23.6 Monocytes % 7.2 Eosinophils % 0.5 Basophils % 0.4 Nucleated Red Blood Cells % 0.9 H Immature Granulocytes # 1.010 H Neutrophils # 9.9 H Lymphocytes # 3.8 H Monocytes # 1.2 H Eosinophils # 0.1 Basophils # 0.1 Nucleated Red Blood Cells # 0.2 H Activated Partial Thromboplast Time 84.2 *H Sodium Level 138 Potassium Level 4.0 Chloride Level 102 Carbon Dioxide Level 26 Anion Gap 10 Blood Urea Nitrogen 37 H Creatinine 1.12 Est Glomerular Filtrat Rate mL/min > 60 Glucose Level 117 Calcium Level 8.9 Phosphorus Level 4.4 Magnesium Level 1.7 Total Bilirubin 0.4 Direct Bilirubin 0.00 Indirect Bilirubin 0.4 Aspartate Amino Transf (AST/SGOT) 25 Alanine Aminotransferase (ALT/SGPT) 33 Alkaline Phosphatase 168 H Total Protein 8.4 H Albumin 3.4 Globulin 5.00 H Albumin/Globulin Ratio 0.68 Procalcitonin 0.18 H Medications Medication Current Medications IV Flush (NS 3 ml) 3 ml PER PROTOCOL IV ; Start 03/17/19 at 15:00 Furosemide (Lasix) 20 mg DAILY PO Last administered on 04/06/19at 08:38; Admin Dose 20 MG; Start 03/20/19 at 09:00 Ceftriaxone Sodium 50 ml @ 100 mls/hr Q24H IVPB Last administered on 04/05/19 10:00; Admin Dose 100 MLS/HR; Start 03/23/19 at 11:00 Guaifenesin/ Dextromethorphan (Robitussin Dm Liquid Cup) 5 ml Q4H PRN PO COUGH Last administered on 04/06/19 08:37; Admin Dose 5 ML; Start 03/23/19 at 22:00 Phenol (Cepastat Lozenge) 1 lozenge Q1H PRN MT COUGH Last administered on 04/06/19 08:38; Admin Dose 1 LOZENGE; Start 03/24/19 at 13:30 Morphine Sulfate (morphine) 1 mg Q4H PRN IV SEVERE PAIN LEVEL 7-10 Last administered on 04/06/19 08:38; Admin Dose 1 MG; Start 03/24/19 at 16:00 Oxycodone/ Acetaminophen (Percocet (5/ 325)) 1 tab Q6H PRN PO .SEVERE PAIN 7-10 Last administered on 04/05/19 16:29; Admin Dose 1 TAB; Start 03/24/19 at 15:00 Fluconazole (Diflucan) 200 mg DAILY PO Last administered on 04/06/19 08:38; Admin Dose 200 MG; Start 03/27/19 at 11:30 Senna (Senokot) 1 tab BID PO Last administered on 04/06/19 08:37; Admin Dose 1 TAB; Start 03/27/19 at 21:00 Docusate Sodium (Colace) 100 mg BID PRN PO CONSTIPATION Last administered on 04/06/19 08:38; Admin Dose 100 MG; Start 03/27/19 at 15:30 Levalbuterol (Xopenex Neb) 1.25 mg Q4H RESP THERAPY HHN Last administered on 04/06/19 08:15; Admin Dose 1.25 MG; Start 03/30/19 at 21:00 Ipratropium [place] (Atrovent 0.02% (Neb)) 0.5 mg Q4H RESP THERAPY HHN Last administered on 04/06/19 08:15; Admin Dose 0.5 MG; Start 03/30/19 at 21:00 Ondansetron HCl 8 mg/Dextrose 54 ml @ 108 mls/hr Q6H PRN IV NAUSEA AND/OR VOMITING Last administered on 03/31/19 21:03; Admin Dose 108 MLS/HR; Start 03/31/19 at 17:00 Apixaban (Eliquis) 5 mg BID PO Last administered on 04/02/19 08:12; Admin Dose 5 MG; Start 04/01/19 at 21:00; Status Hold Epoetin Jamey-epbx (Retacrit (Non-Esrd)) 10,000 unit MoWeFr@1700 SC Last administered on 04/04/19 16:19; Admin Dose 10,000 UNIT; Start 04/02/19 at 17:00 Heparin Sodium (Porcine) (Heparin (1000 Units/ml)) 6,600 unit PER PROTOCOL PRN IV aPTT<47 Last administered on 04/03/19 06:55; Admin Dose 6,600 UNIT; Start 04/02/19 at 15:30 Prednisone (Prednisone) 30 mg DAILY PO Last administered on 04/06/19 08:38; Admin Dose 30 MG; Start 04/04/19 at 09:00 Heparin Sodium (Porcine) (Heparin (1000 Units/ml)) 3,300 unit PER PROTOCOL PRN IV aPTT<47-57 Last administered on 04/04/19 06:44; Admin Dose 3,300 UNIT; Start 04/03/19 at 15:30 Heparin Sodium (Porcine) 250 ml @ 20.5 mls/hr PER PROTOCOL IV Last administered on 04/06/19 09:33; Admin Dose 23 MLS/HR; Start 04/03/19 at 22:30 LUIS HARDIN MD Apr 06, 2019 10:31
[2019-04-06] MEDS: CEFTRIAXONE 2 GM/50 ML (PMX) 50 ML IVPB SCH (11:00)
--- NOTE | 2019-04-06 13:26 | PN ---
Date/Time of Note Date/Time of Note DATE: 04/06/19 TIME: 13:19 Assessment/Plan VTE Prophylaxis Risk score (from [facility] [place])>0 risk: 5 SCD applied (from [facility] [place]): Yes Pharmacological prophylaxis: heparin Lines/Catheters IV Catheter Type (from [facility]): Saline Lock Urinary Cath still in place: No Assessment/Plan Hospital Course Assessment and plan 1. IVC filter thrombus. - IVC filter placed last admission (not indicated at the time and not indicated now). - filter has developed a 1x1 cm thrombus at the tip, which is a contraindication for removal. - continue heparin - Plan to remove this IVC filter prior to discharge to prevent complications. 2. Tricuspid valve vegetation (endocarditis) - Patient had possible tricuspid valve vegetations last admission MADINA was indeterminate. -ABX per ID . Current recommendation is a 42 day course of ceftriaxone (until May 04) for likely endocarditis. 3. Acute hypoxic respiratory failure with fever/sepsis - Secondary to chronic pulmonary embolism, noncompliant with Eliquis after last hospital discharge. - antiphospholipid antibody and protein C was ordered, (hypercoagulable workup is usually not done during treatment of active thrombosis). - On heparin for now and eventual transition to Eliquis indefinitely. - Titrate off o2 as tolerated. note that last time he left AMA he was living at his mother's house somewhat functional on room air for over a month. - Continue antitussives as needed for cough 4. CLAUDIA: - Resolving - Monitor DISPO/PLAN: continue abx. discussed with radiology possible IVC filter removal. Will follow up with IR. continue supportive care for now Discussed POC with Dr. Massey Result Diagram: 04/06/19 0508 04/06/19 0508 Results 24hrs Laboratory Tests Test 04/06/19 05:08 White Blood Count 16.0 H Red Blood Count 3.40 L Hemoglobin 9.0 L Hematocrit 28.4 L Mean Corpuscular Volume 83.5 Mean Corpuscular Hemoglobin 26.5 L Mean Corpuscular Hemoglobin Concent 31.7 L Red Cell Distribution Width 16.4 H Platelet Count 393 Mean Platelet Volume 9.5 Immature Granulocytes % 6.300 H Neutrophils % 62.0 Lymphocytes % 23.6 Monocytes % 7.2 Eosinophils % 0.5 Basophils % 0.4 Nucleated Red Blood Cells % 0.9 H Immature Granulocytes # 1.010 H Neutrophils # 9.9 H Lymphocytes # 3.8 H Monocytes # 1.2 H Eosinophils # 0.1 Basophils # 0.1 Nucleated Red Blood Cells # 0.2 H Activated Partial Thromboplast Time 84.2 *H Sodium Level 138 Potassium Level 4.0 Chloride Level 102 Carbon Dioxide Level 26 Anion Gap 10 Blood Urea Nitrogen 37 H Creatinine 1.12 Est Glomerular Filtrat Rate mL/min > 60 Glucose Level 117 Calcium Level 8.9 Phosphorus Level 4.4 Magnesium Level 1.7 Total Bilirubin 0.4 Direct Bilirubin 0.00 Indirect Bilirubin 0.4 Aspartate Amino Transf (AST/SGOT) 25 Alanine Aminotransferase (ALT/SGPT) 33 Alkaline Phosphatase 168 H Total Protein 8.4 H Albumin 3.4 Globulin 5.00 H Albumin/Globulin Ratio 0.68 Procalcitonin 0.18 H Subjective 24 Hr Interval Summary Free Text/Dictation no s/s of distress. resting at this time. no specific complaints Exam/Review of Systems Exam Vitals Vital Signs Date Temp Pulse Resp B/P (MAP) Pulse Ox O2 O2 Flow FiO2 Time Delivery Rate 04/06/19 Nasal 2.0 12:48 Cannula 04/06/19 102 12:09 04/06/19 98.2 18 121/84 97 11:45 (96) 04/04/19 30 10:06 Intake and Output 04/05/19 04/05/19 04/06/19 1515:00 23:00 07:00 IntakeIntake Total 188 ml 3138 ml 1184 ml OutputOutput Total 4000 ml 1800 ml BalanceBalance 188 ml -862 ml -616 ml Constitutional: alert, oriented Psych: no complaints Neck: supple, non-tender Respiratory: clear to auscultation Cardiovascular: other (regular rate ) Musculoskeletal: nl extremities to inspection Neurological: CHILDC[employer] PROVIDER II-XII intact, nl mental status, nl speech Skin: other (tatoos rue) Results Results 24hrs Laboratory Tests Test 04/06/19 05:08 White Blood Count 16.0 H Red Blood Count 3.40 L Hemoglobin 9.0 L Hematocrit 28.4 L Mean Corpuscular Volume 83.5 Mean Corpuscular Hemoglobin 26.5 L Mean Corpuscular Hemoglobin Concent 31.7 L Red Cell Distribution Width 16.4 H Platelet Count 393 Mean Platelet Volume 9.5 Immature Granulocytes % 6.300 H Neutrophils % 62.0 Lymphocytes % 23.6 Monocytes % 7.2 Eosinophils % 0.5 Basophils % 0.4 Nucleated Red Blood Cells % 0.9 H Immature Granulocytes # 1.010 H Neutrophils # 9.9 H Lymphocytes # 3.8 H Monocytes # 1.2 H Eosinophils # 0.1 Basophils # 0.1 Nucleated Red Blood Cells # 0.2 H Activated Partial Thromboplast Time 84.2 *H Sodium Level 138 Potassium Level 4.0 Chloride Level 102 Carbon Dioxide Level 26 Anion Gap 10 Blood Urea Nitrogen 37 H Creatinine 1.12 Est Glomerular Filtrat Rate mL/min > 60 Glucose Level 117 Calcium Level 8.9 Phosphorus Level 4.4 Magnesium Level 1.7 Total Bilirubin 0.4 Direct Bilirubin 0.00 Indirect Bilirubin 0.4 Aspartate Amino Transf (AST/SGOT) 25 Alanine Aminotransferase (ALT/SGPT) 33 Alkaline Phosphatase 168 H Total Protein 8.4 H Albumin 3.4 Globulin 5.00 H Albumin/Globulin Ratio 0.68 Procalcitonin 0.18 H Medications Medication Current Medications IV Flush (NS 3 ml) 3 ml PER PROTOCOL IV ; Start 03/17/19 at 15:00 Furosemide (Lasix) 20 mg DAILY PO Last administered on 04/06/19 08:38; Admin Dose 20 MG; Start 03/20/19 at 09:00 Ceftriaxone Sodium 50 ml @ 100 mls/hr Q24H IVPB Last administered on 04/06/19 11:00; Admin Dose 100 MLS/HR; Start 03/23/19 at 11:00 Guaifenesin/ Dextromethorphan (Robitussin Dm Liquid Cup) 5 ml Q4H PRN PO COUGH Last administered on 04/06/19 08:37; Admin Dose 5 ML; Start 03/23/19 at 22:00 Phenol (Cepastat Lozenge) 1 lozenge Q1H PRN MT COUGH Last administered on 04/06/19 08:38; Admin Dose 1 LOZENGE; Start 03/24/19 at 13:30 Morphine Sulfate (morphine) 1 mg Q4H PRN IV SEVERE PAIN LEVEL 7-10 Last administered on 04/06/19 08:38; Admin Dose 1 MG; Start 03/24/19 at 16:00 Oxycodone/ Acetaminophen (Percocet (5/ 325)) 1 tab Q6H PRN PO .SEVERE PAIN 7-10 Last administered on 04/05/19 16:29; Admin Dose 1 TAB; Start 03/24/19 at 15:00 Fluconazole (Diflucan) 200 mg DAILY PO Last administered on 04/06/19 08:38; Admin Dose 200 MG; Start 03/27/19 at 11:30 Senna (Senokot) 1 tab BID PO Last administered on 04/06/19 08:37; Admin Dose 1 TAB; Start 03/27/19 at 21:00 Docusate Sodium (Colace) 100 mg BID PRN PO CONSTIPATION Last administered on 04/06/19 08:38; Admin Dose 100 MG; Start 03/27/19 at 15:30 Levalbuterol (Xopenex Neb) 1.25 mg Q4H RESP THERAPY HHN Last administered on 04/06/19 08:15; Admin Dose 1.25 MG; Start 03/30/19 at 21:00 Ipratropium [place] (Atrovent 0.02% (Neb)) 0.5 mg Q4H RESP THERAPY HHN Last administered on 04/06/19 08:15; Admin Dose 0.5 MG; Start 03/30/19 at 21:00 Ondansetron HCl 8 mg/Dextrose 54 ml @ 108 mls/hr Q6H PRN IV NAUSEA AND/OR VOMITING Last administered on 03/31/19 21:03; Admin Dose 108 MLS/HR; Start 03/31/19 at 17:00 Apixaban (Eliquis) 5 mg BID PO Last administered on 04/02/19 08:12; Admin Dose 5 MG; Start 04/01/19 at 21:00; Status Hold Epoetin Jamey-epbx (Retacrit (Non-Esrd)) 10,000 unit MoWeFr@1700 SC Last administered on 04/04/19 16:19; Admin Dose 10,000 UNIT; Start 04/02/19 at 17:00 Heparin Sodium (Porcine) (Heparin (1000 Units/ml)) 6,600 unit PER PROTOCOL PRN IV aPTT<47 Last administered on 04/03/19 06:55; Admin Dose 6,600 UNIT; Start 04/02/19 at 15:30 Prednisone (Prednisone) 30 mg DAILY PO Last administered on 04/06/19 08:38; Admin Dose 30 MG; Start 04/04/19 at 09:00 Heparin Sodium (Porcine) (Heparin (1000 Units/ml)) 3,300 unit PER PROTOCOL PRN IV aPTT<47-57 Last administered on 04/04/19at 06:44; Admin Dose 3,300 UNIT; St art 04/03/19 at 15:30 Heparin Sodium (Porcine) 250 ml @ 20.5 mls/hr PER PROTOCOL IV Last administer ed on 04/06/19at 09:33; Admin Dose 23 MLS/HR; Start 04/03/19 at 22:30 SHANNON WHITE NP Apr 06, 2019 13:26
--- NOTE | 2019-04-06 19:35 | CONS ---
Consult Date/Type/Reason Admit Date/Time March 17, 2019 at 15:13 Initial Consult Date 03/29/19 Type of Consultation: Pulm Requesting Provider: ROBY MILLER MD Date/Time of Note DATE: 04/06/19 TIME: 19:35 Subjective No events overnight Objective Vitals Vital Signs Date Temp Pulse Resp B/P (MAP) Pulse Ox O2 O2 Flow FiO2 Time Delivery Rate 04/06/19 Nasal 2.0 16:33 Cannula 04/06/19 113 16:06 04/06/19 97.9 18 115/85 94 15:30 (95) 04/04/19 30 10:06 Intake and Output 04/05/19 04/05/19 04/06/19 1515:00 23:00 07:00 IntakeIntake Total 188 ml 3138 ml 1184 ml OutputOutput Total 4000 ml 1800 ml BalanceBalance 188 ml -862 ml -616 ml Exam NECK: Supple. No JVD or lymphadenopathy. CARDIAC EXAM: S1, S2. 2 out of 6 systolic ejection murmur CHEST: clear bilaterally, No added sounds, rales or wheezes ABDOMEN: Soft, nontender. No guarding or rebound. EXTREMITIES: No cyanosis, clubbing or edema. NEUROLOGIC: Generalized weakness. No focal deficits. Results/Medications Result Diagram: 04/06/19 0508 04/06/19 0508 Results 24 hrs Laboratory Tests Test 04/06/19 05:08 White Blood Count 16.0 H Red Blood Count 3.40 L Hemoglobin 9.0 L Hematocrit 28.4 L Mean Corpuscular Volume 83.5 Mean Corpuscular Hemoglobin 26.5 L Mean Corpuscular Hemoglobin Concent 31.7 L Red Cell Distribution Width 16.4 H Platelet Count 393 Mean Platelet Volume 9.5 Immature Granulocytes % 6.300 H Neutrophils % 62.0 Lymphocytes % 23.6 Monocytes % 7.2 Eosinophils % 0.5 Basophils % 0.4 Nucleated Red Blood Cells % 0.9 H Immature Granulocytes # 1.010 H Neutrophils # 9.9 H Lymphocytes # 3.8 H Monocytes # 1.2 H Eosinophils # 0.1 Basophils # 0.1 Nucleated Red Blood Cells # 0.2 H Activated Partial Thromboplast Time 84.2 *H Sodium Level 138 Potassium Level 4.0 Chloride Level 102 Carbon Dioxide Level 26 Anion Gap 10 Blood Urea Nitrogen 37 H Creatinine 1.12 Est Glomerular Filtrat Rate mL/min > 60 Glucose Level 117 Calcium Level 8.9 Phosphorus Level 4.4 Magnesium Level 1.7 Total Bilirubin 0.4 Direct Bilirubin 0.00 Indirect Bilirubin 0.4 Aspartate Amino Transf (AST/SGOT) 25 Alanine Aminotransferase (ALT/SGPT) 33 Alkaline Phosphatase 168 H Total Protein 8.4 H Albumin 3.4 Globulin 5.00 H Albumin/Globulin Ratio 0.68 Procalcitonin 0.18 H Home Meds Reported Medications Aspirin* (Aspirin* EC) 81 Mg Tablet.dr, 81 MG PO DAILY, TAB TAKE 2 OR 3 TIMES A DAY 04/27/18 Medications Current Medications IV Flush (NS 3 ml) 3 ml PER PROTOCOL IV ; Start 03/17/19 at 15:00 Furosemide (Lasix) 20 mg DAILY PO Last administered on 04/06/19 08:38; Admin Dose 20 MG; Start 03/20/19 at 09:00 Ceftriaxone Sodium 50 ml @ 100 mls/hr Q24H IVPB Last administered on 04/06/19 11:00; Admin Dose 100 MLS/HR; Start 03/23/19 at 11:00 Guaifenesin/ Dextromethorphan (Robitussin Dm Liquid Cup) 5 ml Q4H PRN PO COUGH Last administered on 04/06/19 15:39; Admin Dose 5 ML; Start 03/23/19 at 22:00 Phenol (Cepastat Lozenge) 1 lozenge Q1H PRN MT COUGH Last administered on 04/06/19 15:39; Admin Dose 1 LOZENGE; Start 03/24/19 at 13:30 Morphine Sulfate (morphine) 1 mg Q4H PRN IV SEVERE PAIN LEVEL 7-10 Last administered on 04/06/19 15:39; Admin Dose 1 MG; Start 03/24/19 at 16:00 Oxycodone/ Acetaminophen (Percocet (5/ 325)) 1 tab Q6H PRN PO .SEVERE PAIN 7-10 Last administered on 04/05/19 16:29; Admin Dose 1 TAB; Start 03/24/19 at 15:00 Fluconazole (Diflucan) 200 mg DAILY PO Last administered on 04/06/19 08:38; Admin Dose 200 MG; Start 03/27/19 at 11:30 Senna (Senokot) 1 tab BID PO Last administered on 04/06/19 08:37; Admin Dose 1 TAB; Start 03/27/19 at 21:00 Docusate Sodium (Colace) 100 mg BID PRN PO CONSTIPATION Last administered on 04/06/19 08:38; Admin Dose 100 MG; Start 03/27/19 at 15:30 Levalbuterol (Xopenex Neb) 1.25 mg Q4H RESP THERAPY HHN Last administered on 04/06/19 08:15; Admin Dose 1.25 MG; Start 03/30/19 at 21:00 Ipratropium [place] (Atrovent 0.02% (Neb)) 0.5 mg Q4H RESP THERAPY HHN Last administered on 04/06/19 08:15; Admin Dose 0.5 MG; Start 03/30/19 at 21:00 Ondansetron HCl 8 mg/Dextrose 54 ml @ 108 mls/hr Q6H PRN IV NAUSEA AND/OR VOMITING Last administered on 03/31/19 21:03; Admin Dose 108 MLS/HR; Start 03/31/19 at 17:00 Apixaban (Eliquis) 5 mg BID PO Last administered on 04/02/19 08:12; Admin Dose 5 MG; Start 04/01/19 at 21:00; Status Hold Epoetin Jamey-epbx (Retacrit (Non-Esrd)) 10,000 unit MoWeFr@1700 SC Last administered on 04/04/19 16:19; Admin Dose 10,000 UNIT; Start 04/02/19 at 17:00 Heparin Sodium (Porcine) (Heparin (1000 Units/ml)) 6,600 unit PER PROTOCOL PRN IV aPTT<47 Last administered on 04/03/19 06:55; Admin Dose 6,600 UNIT; Start 04/02/19 at 15:30 Prednisone (Prednisone) 30 mg DAILY PO Last administered on 04/06/19 08:38; Admin Dose 30 MG; Start 04/04/19 at 09:00 Heparin Sodium (Porcine) (Heparin (1000 Units/ml)) 3,300 unit PER PROTOCOL PRN IV aPTT<47-57 Last administered on 04/04/19 06:44; Admin Dose 3,300 UNIT; Start 04/03/19 at 15:30 Heparin Sodium (Porcine) 250 ml @ 20.5 mls/hr PER PROTOCOL IV Last adm inistered on 04/06/19at 09:33; Admin Dose 23 MLS/HR; Start 04/03/19 at 22:30 Assessment/Plan Assessment/Plan (Daily) IMP: 1. Endocarditis with septic emboli, History of tricuspid valve replacement 2. History of intravenous drug abuse 3. Transient hemoptysis now improved currently off anticoagulation 4. IVC filter thrombus RECS: 1. Continue antibiotics 2. Continue cardiac recommendations 3. Supplemental O2 as needed MILO DONG MD Apr 06, 2019 19:35
[2019-04-07] VITALS (10 sets, daily range): BP systolic 100–115; BP diastolic 66–77; PULSE 97–116; RESP 16–18
[2019-04-07] MEDS: IPRATROPIUM (NEB) 0.5 MG/2.5 ML AMP HHN SCH ×5 (00:48→21:00)
[2019-04-07] MEDS: LEVALBUTEROL (NEB) 1.25 MG/0.5 ML AMP HHN SCH ×5 (00:48→21:00)
[2019-04-07] MEDS: GUAIFENESIN/DM 5ML CUP PO PRN ×4 (02:53→20:19)
[2019-04-07] MEDS: morphine 2 MG INJ IV PRN ×4 (02:53→20:19)
[2019-04-07] MEDS: CEPASTAT LOZENGE MT PRN (02:54)
--- NOTE | 2019-04-07 06:54 | CONS ---
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 usual suspect in IVDA is staph or strep but pseudomonas and benjamin can also be seen continue with vanco/zosyn at present fevers have improved and WBC is improved today I will order WBC scan as pt c/o pain over the pacer site I will also order u/s of pacer site to see if there is fluid present 03/20 - GPC growing in all 3 sets of blood cx from 03/17, await ID MRSA in nasal continue with vanco/zosyn pt was seen in this hospital last month under a different MRN and he was evaluated for endocarditis at that time he had corynebacterium in two different sets of blood cx and had a MADINA which was neg for vegetations he was give two weeks of ceftriaxone for pneumonia, they also wondered if he had septic emboli or PE at that time he got an IVC filter but were planning to remove it because he did not have a PE but he left AMA u/s of around pacer site was neg for fluid collection WBC scan is pending 03/21 - WBC scan only has activity in the lung s.aureus is in the blood repeat blood cx on 03/18 are NGTD, repeat again continue with vanco, d/c zosyn 03/24- MSSA in blood, vanco stopped yesterday and switched to ceftriaxone 2gm q24 hours repeat blood cx all remain NGTD 03/25 - low grade temp noted, to repeat CXR procalcitonin was greatly improved but will repeat in a.m. continue with just ceftriaxone, all repeat blood cx are NGTD 03/26 - procalcitonin is pending but CXR from yesterday was slightly improved WBC is still elevated and higher today, clinically pt is much improved I saw that in january he had a marginal positive IgM cocci titer, to repeat this if procalcitonin is higher to broaden pulmonary coverage 03/27 - procalcitonin continues to improve, doubt he has pneumonia failing current therapy await repeat cocci titers to repeat blood cx again x1 03/28 - stable 03/29 - repeat blood cx remain neg continue with ceftriaxone 03/30 - WBC has normalized since back on anti-coagulation day of ceftriaxone 03/31 - CT abd/pelv shows clot above the IVC filter and improved LL infiltrates 04/02 - stable day of ceftriaxone 04/04 day of ceftriaxone hemoptysis has abated increase in WBC likely due to steroids procalcitonin is almost neg, repeat this weekend 04/07 - repeat procalcitonin was negative day of ceftriaxone (continue thru 04/29/19). tests for hypercoagulable state are neg but pt was on anti-coagulation 2) IVDA pt states he was tested in the last 1-2 months and was neg for HIV and he does not share his needles no hx of hepatitis either I will check into his prior hospitalization here that if it exists is under another MR# / - pt has another MRN and his HIV was neg in february he had corynebacterium in two different sets of blood cx then 3) pulmonary infiltrates PACS system is not working on two different computers, I need to see his CT's and CXR to see if these are c/w septic emboli or not vanco/zosyn should cover if he has pneumonia rather than septic emboli procalcitonin has been ordered also 03/20 - his prior chest CT last month shows that he has waxing and waning of pulmonary infiltrates and his cavitary lesions have improved slightly his pulmonary infiltrates are patchy and somewhat large which would be atypical for septic emboli his procalcitonin is very high but bacteremia will also elevated it continue with vanco/zosyn will check for atypical organisms with serology 03/21 - pt is able to bring up some phlegm will order cx s.aureus is likely the culprit continue with vanco, d/c zosyn but add levaquin for atypical coverage 03/24 - sputum cx has c.alb only continue with levaquin and ceftriaxone, legionella was neg 03/25 - mycoplasma IgG was elevated but no IgM sent and at this time results would be back after he has finished his levaquin day 03/11 of levaquin 03/26 - day / of levaquin CXR is improved check cocci titers since he had an equivocal IgM titer in january 201903/27 - today is last day of his oral levaquin await cocci titers 03/29 - pt has new areas of probable septic emboli pt had his lovenox stopped and is now re-started cause of new septic emboli are either due to ongoing infection of TV, which would indicate he needs surgery or due to a hypercoagulable state and in SBE the development of APLA can occur so will order this test in a.m. I will also repeat LE venous dopplers (pt already has an IVC filter in 03/30 - venous dopplers to UE and LE were negative no swelling of legs WBC has normalized since anti-coagulation was started await repeat 2d echo 03/31 - hemoptysis noted but minimal decrease in Hgb continue with anti-coagulation repeat procalcitonin in a.m., improved LL infiltrates noted on CT abd/pelv 04/02 - decrease in procalcitonin Hgb now at 7.9 4) ARF 03/21 this is improving 03/24 - resolved 5) leukocytosis 03/26 - pt is clinically improved one of his legs is slightly swollen but not tender and he had a neg LE venous doppler on 03/17 no diarrhea, so c.dif is unlikely no urinary c/o but will repeat u/a and urine cx will check cocci titers since pt had an equivocal IgM titer in january 2019 check RPR pt had a neg HIV test in january 2019 and HIV would not be cause of leukocytosis 03/27 - increasing alk phos, but pt is asymptomatic, will order RUQ u/s increasing WBC but decreasing procalcitonin, repeat both in a.m. 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 Consultation Date/Type/Reason Admit Date/Time March 17, 2019 at 15:13 Initial Consult Date 03/19/19 Type of Consult ID Requesting Provider: ROBY MILLER MD Date/Time of Note DATE: 04/07/19 TIME: 06:51 24 HR Interval Summary Free Text/Dictation spoke to nurse pt on ATC MS for upper chest pain no longer has blood with coughing no V, D Exam/Review of Systems Exam Vitals Vital Signs Date Temp Pulse Resp B/P (MAP) Pulse Ox O2 O2 Flow FiO2 Time Delivery Rate 04/07/19 101 20 94 Nasal 2.0 05:45 Cannula 04/07/19 97.7 105/66 04:00 (79) 04/04/19 30 10:06 Intake and Output 04/06/19 04/06/19 04/07/19 1515:00 23:00 07:00 IntakeIntake Total 2488 ml 5061 ml 1000 ml OutputOutput Total 1000 ml 4000 ml 2600 ml BalanceBalance 1488 ml 1061 ml -1600 ml Exam pt as usual is asleep spoke to nurse Respiratory: clear to auscultation Cardiovascular: regular rate and rhythm Results Result Diagram: 04/06/19 0508 04/06/19 0508 Results 24hrs Laboratory Tests Test 04/07/19 05:26 Activated Partial Thromboplast Time 86.2 *H Medications Medication Current Medications IV Flush (NS 3 ml) 3 ml PER PROTOCOL IV ; Start 03/17/19 at 15:00 Furosemide (Lasix) 20 mg DAILY PO Last administered on 04/06/19 08:38; Admin Dose 20 MG; Start 03/20/19 at 09:00 Ceftriaxone Sodium 50 ml @ 100 mls/hr Q24H IVPB Last administered on 04/06/19 11:00; Admin Dose 100 MLS/HR; Start 03/23/19 at 11:00 Guaifenesin/ Dextromethorphan (Robitussin Dm Liquid Cup) 5 ml Q4H PRN PO COUGH Last administered on 04/07/19 02:53; Admin Dose 5 ML; Start 03/23/19 at 22:00 Phenol (Cepastat Lozenge) 1 lozenge Q1H PRN MT COUGH Last administered on 04/07/19 02:54; Admin Dose 1 LOZENGE; Start 03/24/19 at 13:30 Morphine Sulfate (morphine) 1 mg Q4H PRN IV SEVERE PAIN LEVEL 7-10 Last administered on 04/07/19 02:53; Admin Dose 1 MG; Start 03/24/19 at 16:00 Oxycodone/ Acetaminophen (Percocet (5/ 325)) 1 tab Q6H PRN PO .SEVERE PAIN 7-10 Last administered on 04/05/19 16:29; Admin Dose 1 TAB; Start 03/24/19 at 15:00 Fluconazole (Diflucan) 200 mg DAILY PO Last administered on 04/06/19 08:38; Admin Dose 200 MG; Start 03/27/19 at 11:30 Senna (Senokot) 1 tab BID PO Last administered on 04/06/19 21:12; Admin Dose 1 TAB; Start 03/27/19 at 21:00 Docusate Sodium (Colace) 100 mg BID PRN PO CONSTIPATION Last administered on 04/06/19 08:38; Admin Dose 100 MG; Start 03/27/19 at 15:30 Levalbuterol (Xopenex Neb) 1.25 mg Q4H RESP THERAPY HHN Last administered on 04/07/19 05:45; Admin Dose 1.25 MG; Start 03/30/19 at 21:00 Ipratropium [place] (Atrovent 0.02% (Neb)) 0.5 mg Q4H RESP THERAPY HHN Last administered on 04/07/19 05:45; Admin Dose 0.5 MG; Start 03/30/19 at 21:00 Ondansetron HCl 8 mg/Dextrose 54 ml @ 108 mls/hr Q6H PRN IV NAUSEA AND/OR VOMITING Last administered on 03/31/19 21:03; Admin Dose 108 MLS/HR; Start 03/31/19 at 17:00 Apixaban (Eliquis) 5 mg BID PO Last administered on 04/02/19 08:12; Admin Dose 5 MG; Start 04/01/19 at 21:00; Status Hold Epoetin Jamey-epbx (Retacrit (Non-Esrd)) 10,000 unit MoWeFr@1700 SC Last administered on 04/04/19 16:19; Admin Dose 10,000 UNIT; Start 04/02/19 at 17:00 Heparin Sodium (Porcine) (Heparin (1000 Units/ml)) 6,600 unit PER PROTOCOL PRN IV aPTT<47 Last administered on 04/03/19 06:55; Admin Dose 6,600 UNIT; Start 04/02/19 at 15:30 Prednisone (Prednisone) 30 mg DAILY PO Last administered on 04/06/19 08:38; Admin Dose 30 MG; Start 04/04/19 at 09:00 Heparin Sodium (Porcine) (Heparin (1000 Units/ml)) 3,300 unit PER PROTOCOL PRN IV aPTT<47-57 Last administered on 04/04/19 06:44; Admin Dose 3,300 UNIT; Start 04/03/19 at 15:30 Heparin Sodium (Porcine) 250 ml @ 20.5 mls/hr PER PROTOCOL IV Last adminis tered on 04/06/19at 21:30; Admin Dose 23 MLS/HR; Start 04/03/19 at 22:30 JANETH LOGAN MD Apr 07, 2019 06:54
[2019-04-07] MEDS: FLUCONAZOLE 200 MG TAB PO SCH (09:04)
[2019-04-07] MEDS: FUROSEMIDE 20 MG TAB PO SCH (09:04)
[2019-04-07] MEDS: predniSONE 10 MG TAB PO SCH (09:04)
[2019-04-07] MEDS: SENNA TAB PO SCH ×2 (09:13→20:19)
[2019-04-07] MEDS: HEPARIN 25000 UNITS/250 ML 250 ML IV SCH ×2 (09:21→19:16)
--- NOTE | 2019-04-07 10:31 | QN ---
Documentation Comment I was asked to consult regarding IVC filter removal. I reviewed the CTA and it shows a large thrombus attached to the top of the filter. It is not safe to remove it as this would cause a pulmonary embolus. - Continue heparin IV - the thrombus should lyse overtime. - Repeat CTA in one month - if the thrombus has resolved at that point then I would attempt to remove it. ALEX WILSON MD Apr 07, 2019 10:31
--- NOTE | 2019-04-07 10:52 | PN ---
Date/Time of Note Date/Time of Note DATE: 04/07/19 TIME: 10:45 Assessment/Plan VTE Prophylaxis Risk score (from [facility])>0 risk: 5 SCD applied (from [facility]): Yes Pharmacological prophylaxis: heparin Lines/Catheters IV Catheter Type (from [facility]): [place] Lock Urinary Cath still in place: No Assessment/Plan Hospital Course Assessment and plan 1. IVC filter thrombus. - IVC filter placed last admission (not indicated at the time and not indicated now). - filter has developed a 1x1 cm thrombus at the tip, which is a contraindication for removal. - continue heparin - There was plan to remove this IVC filter prior to discharge to prevent complications however due to large thrombus attached to top of filter, it is unsafe to remove. Discussed case with vascular surgeon. 2. Tricuspid valve vegetation (endocarditis) - Patient had possible tricuspid valve vegetations last admission [place] was indeterminate. - ABX per ID . Current recommendation is a 42 day course of ceftriaxone (unt il May 04) for likely endocarditis. 3. Acute hypoxic respiratory failure with fever/sepsis - Secondary to chronic pulmonary embolism, noncompliant with Eliquis after last hospital discharge. - antiphospholipid antibody and protein C was ordered, (hypercoagulable workup is usually not done during treatment of active thrombosis). - On heparin for now and eventual transition to Eliquis indefinitely. - Titrate off o2 as tolerated. note that last time he left AMA he was living at his mother's house somewhat functional on room air for over a month. - Continue antitussives as needed for cough 4. CLAUDIA: - Resolving - Monitor DISPO/PLAN: continue abx. Vascular surgeon consulted. Unsafe to remove IVC filter. continue heparin for now. Transition to oral anticoagulant per hematology. continue inhouse monitoring, Transfer to med/surg Discussed POC with Dr. Parson Result Diagram: 04/06/19 0508 04/06/19 0508 Results 24hrs Laboratory Tests Test 04/07/19 05:26 Activated Partial Thromboplast Time 86.2 *H Subjective 24 Hr Interval Summary Free Text/Dictation comfortable at present. no s/s of distress. no specific complaints Exam/Review of Systems Exam Vitals Vital Signs Date Temp Pulse Resp B/P (MAP) Pulse Ox O2 O2 Flow FiO2 Time Delivery Rate 04/07/19 102 08:00 04/07/19 98.2 17 111/77 97 07:45 (88) 04/07/19 Nasal 2.0 05:45 Cannula 04/04/19 30 10:06 Intake and Output 04/06/19 04/06/19 04/07/19 1515:00 23:00 07:00 IntakeIntake Total 2488 ml 5061 ml 1000 ml OutputOutput Total 1000 ml 4000 ml 2600 ml BalanceBalance 1488 ml 1061 ml -1600 ml Exam Constitutional: alert, oriented Psych: no complaints Neck: supple, non-tender Respiratory: clear to auscultation Cardiovascular: other (regular rate to tachycardic ) Musculoskeletal: nl extremities to inspection Neurological: MANAGER NURSING II-XII intact, nl mental status, nl speech Skin: other (tatoos BUE and BLE) Results Results 24hrs Laboratory Tests Test 04/07/19 05:26 Activated Partial Thromboplast Time 86.2 *H Medications Medication Current Medications IV Flush (NS 3 ml) 3 ml PER PROTOCOL IV ; Start 03/17/19 at 15:00 Furosemide (Lasix) 20 mg DAILY PO Last administered on 04/07/19 09:04; Admin Dose 20 MG; Start 03/20/19 at 09:00 Ceftriaxone Sodium 50 ml @ 100 mls/hr Q24H IVPB Last administered on 04/06/19 11:00; Admin Dose 100 MLS/HR; Start 03/23/19 at 11:00 Guaifenesin/ Dextromethorphan (Robitussin Dm Liquid Cup) 5 ml Q4H PRN PO COUGH Last administered on 04/07/19 09:04; Admin Dose 5 ML; Start 03/23/19 at 22:00 Phenol (Cepastat Lozenge) 1 lozenge Q1H PRN MT COUGH Last administered on 04/07/19 02:54; Admin Dose 1 LOZENGE; Start 03/24/19 at 13:30 Morphine Sulfate (morphine) 1 mg Q4H PRN IV SEVERE PAIN LEVEL 7-10 Last administered on 04/07/19 09:05; Admin Dose 1 MG; Start 03/24/19 at 16:00 Oxycodone/ Acetaminophen (Percocet (5/ 325)) 1 tab Q6H PRN PO .SEVERE PAIN 7-10 Last administered on 04/05/19 16:29; Admin Dose 1 TAB; Start 03/24/19 at 15:00 Fluconazole (Diflucan) 200 mg DAILY PO Last administered on 04/07/19 09:04; Admin Dose 200 MG; Start 03/27/19 at 11:30 Senna (Senokot) 1 tab BID PO Last administered on 04/07/19 09:13; Admin Dose 1 TAB; Start 03/27/19 at 21:00 Docusate Sodium (Colace) 100 mg BID PRN PO CONSTIPATION Last administered on 04/06/19 08:38; Admin Dose 100 MG; Start 03/27/19 at 15:30 Levalbuterol (Xopenex Neb) 1.25 mg Q4H RESP THERAPY HHN Last administered on 04/07/19 08:22; Admin Dose 1.25 MG; Start 03/30/19 at 21:00 Ipratropium [place] (Atrovent 0.02% (Neb)) 0.5 mg Q4H RESP THERAPY HHN Last administered on 04/07/19 08:22; Admin Dose 0.5 MG; Start 03/30/19 at 21:00 Ondansetron HCl 8 mg/Dextrose 54 ml @ 108 mls/hr Q6H PRN IV NAUSEA AND/OR VOMITING Last administered on 03/31/19 21:03; Admin Dose 108 MLS/HR; Start 03/31/19 at 17:00 Apixaban (Eliquis) 5 mg BID PO Last administered on 04/02/19 08:12; Admin Dose 5 MG; Start 04/01/19 at 21:00; Status Hold Epoetin Jamey-epbx (Retacrit (Non-Esrd)) 10,000 unit MoWeFr@1700 SC Last administered on 04/04/19 16:19; Admin Dose 10,000 UNIT; Start 04/02/19 at 17:00 Heparin Sodium (Porcine) (Heparin (1000 Units/ml)) 6,600 unit PER PROTOCOL PRN IV aPTT<47 Last administered on 04/03/19 06:55; Admin Dose 6,600 UNIT; Start 04/02/19 at 15:30 Prednisone (Prednisone) 30 mg DAILY PO Last administered on 04/07/19 09:04; Admin Dose 30 MG; Start 04/04/19 at 09:00 Heparin Sodium (Porcine) (Heparin (1000 Units/ml)) 3,300 unit PER PROTOCOL PRN IV aPTT<47-57 Last administered on 04/04/19at 06:44; Admin Dose 3,300 UNIT; S tart 04/03/19 at 15:30 Heparin Sodium (Porcine) 250 ml @ 20.5 mls/hr PER PROTOCOL IV Last administe red on 04/07/19at 09:21; Admin Dose 23 MLS/HR; Start 04/03/19 at 22:30 SHANNON WHITE NP Apr 07, 2019 10:52
--- NOTE | 2019-04-07 11:21 | CONS ---
Assessment/Plan Assessment/Plan Assessment/Plan (Daily) Assessment and recommendations; 1. 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 CT scan showing embolism to lungs. Patient likely is from endocarditis rather than thromboembolic in etiology. Patient doing very well now off anticoagulation without any further episodes of hemoptysis. 2. Negative lower extremity ultrasound for DVT. 3. History of recurrent drug abuse. 4. 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 5. Anemia. 6. 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 Discontinue prednisone. Observe for any further hemoptysis. Continue current antimicrobial regimen. Consultation Date/Type/Reason Admit Date/Time March 17, 2019 at 15:13 Initial Consult Date 03/29/19 Type of Consult Pulmonary Patient is a 28-year-old male who was admitted on the of this month with complaints of fever and chills after using intravenous methamphetamine prior to admission. Patient is been diagnosed with endocarditis and is currently on appropriate antimicrobial regimen. CT chest was done yesterday which is showing what appears to be acute on chronic right-sided pulmonary embolic disease. Patient is complaining very scant hemoptysis and according to him is feeling much better since admission. Denies any chest pain, compress very mild shortness of breath. Past medical history; 1. History of sternotomy with valve replacement. Likely tricuspid valve. 2. History of active intravenous drug use. Medications; reviewed. Allergies; none. Social history; positive for drug abuse. Family history; noncontributory. Occupational history; patient is on disability. Review of systems; denies any headache, seizures, visual changes. Any chest pain, complains of very minimal cough with very minimal hemoptysis. Denies any abdominal pain, nausea vomiting. Any fever chills. Any back pain. Any skin changes. Appears very minimal weight loss. Denies any melena hematochezia. General exam; young male, awake alert, currently no distress. Laying comfortably in bed. Requesting Provider: ROBY MILLER MD Date/Time of Note DATE: 04/07/19 TIME: : 24 HR Interval Summary Free Text/Dictation Patient's condition is stable. Denies any further hemoptysis for the last several days. Denies any shortness of breath, chest pain, coughing, wheezing. General exam; young male, awake alert, currently in no distress. Exam/Review of Systems Exam Vitals Vital Signs Date Temp Pulse Resp B/P (MAP) Pulse Ox O2 O2 Flow FiO2 Time Delivery Rate 04/07/19 2.0 11:05 04/07/19 103 20 94 Nasal 08:22 Cannula 04/07/19 98.2 111/77 07:45 (88) 04/04/19 30 10:06 Intake and Output 04/06/19 04/06/19 04/07/19 1515:00 23:00 07:00 IntakeIntake Total 2488 ml 5061 ml 1000 ml OutputOutput Total 1000 ml 4000 ml 2600 ml BalanceBalance 1488 ml 1061 ml -1600 ml Exam H EENT exam; supple neck, no JVD. No lymphadenopathy. Midline trachea. No thyromegaly. Patient has fair dentition. No neck masses. Chest exam; clear to auscultation. There is a well-healed sternal scar. Regular rhythm. Abdomen exam; soft, nontender. No organomegaly. Bowel sounds are audible. Extremity exam; no peripheral edema clubbing. PAINT SPRAY INSPECTOR exam; no focal deficit. Results Result Diagram: 04/06/19 0508 04/06/19 0508 Results 24hrs Laboratory Tests Test 04/07/19 05:26 Activated Partial Thromboplast Time 86.2 *H Medications Medication Current Medications IV Flush (NS 3 ml) 3 ml PER PROTOCOL IV ; Start 03/17/19 at 15:00 Furosemide (Lasix) 20 mg DAILY PO Last administered on 04/07/19 09:04; Admin Dose 20 MG; Start 03/20/19 at 09:00 Ceftriaxone Sodium 50 ml @ 100 mls/hr Q24H IVPB Last administered on 04/06/19at 11:00; Admin Dose 100 MLS/HR; Start 03/23/19 at 11:00 Guaifenesin/ Dextromethorphan (Robitussin Dm Liquid Cup) 5 ml Q4H PRN PO COUGH Last administered on 04/07/19at 09:04; Admin Dose 5 ML; Start 03/23/19 at 22:00 Phenol (Cepastat Lozenge) 1 lozenge Q1H PRN MT COUGH Last administered on 04/07/19at 02:54; Admin Dose 1 LOZENGE; Start 03/24/19 at 13:30 Morphine Sulfate (morphine) 1 mg Q4H PRN IV SEVERE PAIN LEVEL 7-10 Last administered on 04/07/19 09:05; Admin Dose 1 MG; Start 03/24/19 at 16:00 Oxycodone/ Acetaminophen (Percocet (5/ 325)) 1 tab Q6H PRN PO .SEVERE PAIN 7-10 Last administered on 04/05/19 16:29; Admin Dose 1 TAB; Start 03/24/19 at 15:00 Fluconazole (Diflucan) 200 mg DAILY PO Last administered on 04/07/19 09:04; Admin Dose 200 MG; Start 03/27/19 at 11:30 Senna (Senokot) 1 tab BID PO Last administered on 04/07/19 09:13; Admin Dose 1 TAB; Start 03/27/19 at 21:00 Docusate Sodium (Colace) 100 mg BID PRN PO CONSTIPATION Last administered on 04/06/19 08:38; Admin Dose 100 MG; Start 03/27/19 at 15:30 Levalbuterol (Xopenex Neb) 1.25 mg Q4H RESP THERAPY HHN Last administered on 04/07/19 08:22; Admin Dose 1.25 MG; Start 03/30/19 at 21:00 Ipratropium [place] (Atrovent 0.02% (Neb)) 0.5 mg Q4H RESP THERAPY HHN Last administered on 04/07/19 08:22; Admin Dose 0.5 MG; Start 03/30/19 at 21:00 Ondansetron HCl 8 mg/Dextrose 54 ml @ 108 mls/hr Q6H PRN IV NAUSEA AND/OR VOMITING Last administered on 03/31/19 21:03; Admin Dose 108 MLS/HR; Start 03/31/19 at 17:00 Apixaban (Eliquis) 5 mg BID PO Last administered on 04/02/19 08:12; Admin Dose 5 MG; Start 04/01/19 at 21:00; Status Hold Epoetin Jamey-epbx (Retacrit (Non-Esrd)) 10,000 unit MoWeFr@1700 SC Last administered on 04/04/19 16:19; Admin Dose 10,000 UNIT; Start 04/02/19 at 17:00 Heparin Sodium (Porcine) (Heparin (1000 Units/ml)) 6,600 unit PER PROTOCOL PRN IV aPTT<47 Last administered on 04/03/19 06:55; Admin Dose 6,600 UNIT; Start 04/02/19 at 15:30 Prednisone (Prednisone) 30 mg DAILY PO Last administered on 04/07/19 09:04; Adm in Dose 30 MG; Start 04/04/19 at 09:00 Heparin Sodium (Porcine) (Heparin (1000 Units/ml)) 3,300 unit PER PROTOCOL PRN IV aPTT<47-57 Last administered on 04/04/19 06:44; Admin Dose 3,300 UNIT; Start 04/03/19 at 15:30 Heparin Sodium (Porcine) 250 ml @ 20.5 mls/hr PER PROTOCOL IV Last administered on 04/07/19 09:21; Admin Dose 23 MLS/HR; Start 04/03/19 at 22:30 CARLOS TRIVEDI Apr 07, 2019 11:21
[2019-04-07] MEDS: CEFTRIAXONE 2 GM/50 ML (PMX) 50 ML IVPB SCH (11:29)
[2019-04-07] MEDS: EPOETIN ALFA-EPBX (NON-ESRD 10,000 UNIT/ML VIAL SC SCH (17:23)
[2019-04-08] VITALS (8 sets, daily range): BP systolic 109–119; BP diastolic 70–82; PULSE 93–109; RESP 18–20
[2019-04-08] MEDS: IPRATROPIUM (NEB) 0.5 MG/2.5 ML AMP HHN SCH ×5 (00:24→16:34)
[2019-04-08] MEDS: LEVALBUTEROL (NEB) 1.25 MG/0.5 ML AMP HHN SCH ×5 (00:24→16:34)
[2019-04-08] MEDS: morphine 2 MG INJ IV PRN ×4 (00:35→17:14)
[2019-04-08] MEDS: GUAIFENESIN/DM 5ML CUP PO PRN ×4 (00:35→17:13)
--- NOTE | 2019-04-08 07:15 | CONS ---
Assessment/Plan Assessment/Plan Assessment/Plan (Daily) Assessment and recommendations; next 1. 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 Patient now off systemic steroids. 2. Possibly some element of pulmonary vasculitis associated with endocarditis and septic embolism to lungs. 3. Prior history of tricuspid valve replacement. 4. Active intravenous drug use. 5. Anemia. Continue current supportive care. Monitor for any signs of recurrent hemoptysi s. Antimicrobial regimen per ID [facility] wms consultant. Consultation Date/Type/Reason Admit Date/Time March 17, 2019 at 15:13 Initial Consult Date 03/29/19 Type of Consult Pulmonary Patient is a 28-year-old male who was admitted on the of this month with complaints of fever and chills after using intravenous methamphetamine prior to admission. Patient is been diagnosed with endocarditis and is currently on appropriate antimicrobial regimen. CT chest was done yesterday which is showing what appears to be acute on chronic right-sided pulmonary embolic disease. Patient is complaining very scant hemoptysis and according to him is feeling much better since admission. Denies any chest pain, compress very mild shortness of breath. Past medical history; 1. History of sternotomy with valve replacement. Likely tricuspid valve. 2. History of active intravenous drug use. Medications; reviewed. Allergies; none. Social history; positive for drug abuse. Family history; noncontributory. Occupational history; patient is on disability. Review of systems; denies any headache, seizures, visual changes. Any chest pain, complains of very minimal cough with very minimal hemoptysis. Denies any abdominal pain, nausea vomiting. Any fever chills. Any back pain. Any skin changes. Appears very minimal weight loss. Denies any melena hematochezia. General exam; young male, awake alert, currently no distress. Laying comfort ably in bed. Requesting Provider: ROBY MILLER MD Date/Time of Note DATE: 04/08/19 TIME: 07:13 24 HR Interval Summary Free Text/Dictation Patient's condition is stable. Remains awake and alert. Denies any further he moptysis. Any chest pain, coughing, sputum production. General exam; young male, awake alert, currently no distress. Exam/Review of Systems Exam Vitals Vital Signs Date Temp Pulse Resp B/P (MAP) Pulse Ox O2 O2 Flow FiO2 Time Delivery Rate 04/08/19 100 17 96 Nasal 2.0 28 04:46 Cannula 04/08/19 97.7 115/70 04:00 (85) Intake and Output 04/07/19 04/07/19 04/08/19 1515:00 23:00 07:00 IntakeIntake Total 1284 ml 1800 ml 1200 ml OutputOutput Total 1400 ml 2800 ml 1500 ml BalanceBalance -116 ml -1000 ml -300 ml Exam H ENT exam; supple neck, no JVD. No lymphadenopathy. Midline trachea. No thyromegaly. Patient has fair dentition. No neck masses. Chest exam; diminished but clear breath sounds. S1-S2 audible, no murmurs. Regular rhythm. There is a well-healed sternal scar. Abdomen exam; soft, nontender. No organomegaly. Bowel sounds audible. Extremity exam; no peripheral edema clubbing. ACCOUNTING RECRUITER exam; no focal deficit. Results Result Diagram: 04/08/19 0610 04/06/19 0508 Results 24hrs Laboratory Tests Test 04/08/19 06:10 White Blood Count 17.7 H Red Blood Count 3.60 L Hemoglobin 9.4 L Hematocrit 29.5 L Mean Corpuscular Volume 81.9 L Mean Corpuscular Hemoglobin 26.1 L Mean Corpuscular Hemoglobin Concent 31.9 L Red Cell Distribution Width 16.0 H Platelet Count 393 Mean Platelet Volume 9.0 Immature Granulocytes % 9.700 H Neutrophils % 54.0 Lymphocytes % 25.3 Monocytes % 8.4 Eosinophils % 2.4 Basophils % 0.2 Nucleated Red Blood Cells % 1.0 H Immature Granulocytes # 1.710 H Neutrophils # 9.6 H Lymphocytes # 4.5 H Monocytes # 1.5 H Eosinophils # 0.4 Basophils # 0.0 Nucleated Red Blood Cells # 0.2 H Medications Medication Current Medications IV Flush (NS 3 ml) 3 ml PER PROTOCOL IV ; Start 03/17/19 at 15:00 Furosemide (Lasix) 20 mg DAILY PO Last administered on 04/07/19at 09:04; Admin Dose 20 MG; Start 03/20/19 at 09:00 Ceftriaxone Sodium 50 ml @ 100 mls/hr Q24H IVPB Last administered on 04/07/19at 11:29; Admin Dose 100 MLS/HR; Start 03/23/19 at 11:00 Guaifenesin/ Dextromethorphan (Robitussin Dm Liquid Cup) 5 ml Q4H PRN PO COUGH Last administered on 04/08/19 06:28; Admin Dose 5 ML; Start 03/23/19 at 22:00 Phenol (Cepastat Lozenge) 1 lozenge Q1H PRN MT COUGH Last administered on 04/07/19 02:54; Admin Dose 1 LOZENGE; Start 03/24/19 at 13:30 Morphine Sulfate (morphine) 1 mg Q4H PRN IV SEVERE PAIN LEVEL 7-10 Last administered on 04/08/19 06:28; Admin Dose 1 MG; Start 03/24/19 at 16:00 Oxycodone/ Acetaminophen (Percocet (5/ 325)) 1 tab Q6H PRN PO .SEVERE PAIN 7-10 Last administered on 04/05/19 16:29; Admin Dose 1 TAB; Start 03/24/19 at 15:00 Fluconazole (Diflucan) 200 mg DAILY PO Last administered on 04/07/19 09:04; Admin Dose 200 MG; Start 03/27/19 at 11:30 Senna (Senokot) 1 tab BID PO Last administered on 04/07/19 20:19; Admin Dose 1 TAB; Start 03/27/19 at 21:00 Docusate Sodium (Colace) 100 mg BID PRN PO CONSTIPATION Last administered on 04/06/19 08:38; Admin Dose 100 MG; Start 03/27/19 at 15:30 Levalbuterol (Xopenex Neb) 1.25 mg Q4H RESP THERAPY HHN Last administered on 04/07/19 08:22; Admin Dose 1.25 MG; Start 03/30/19 at 21:00 Ipratropium [place] (Atrovent 0.02% (Neb)) 0.5 mg Q4H RESP THERAPY HHN Last administered on 04/07/19 08:22; Admin Dose 0.5 MG; Start 03/30/19 at 21:00 Ondansetron HCl 8 mg/Dextrose 54 ml @ 108 mls/hr Q6H PRN IV NAUSEA AND/OR VOMITING Last administered on 03/31/19 21:03; Admin Dose 108 MLS/HR; Start at 17:00 Apixaban (Eliquis) 5 mg BID PO Last administered on 04/02/19 08:12; Admin Dose 5 MG; Start 04/01/19 at 21:00; Status Hold Epoetin Jamey-epbx (Retacrit (Non-Esrd)) 10,000 unit MoWeFr@1700 SC Last administered on 04/07/19 17:23; Admin Dose 10,000 UNIT; Start 04/02/19 at 17:00 Heparin Sodium (Porcine) (Heparin (1000 Units/ml)) 6,600 unit PER PROTOCOL PRN IV aPTT<47 Last administered on 04/03/19 06:55; Admin Dose 6,600 UNIT; Start 04/02/19 at 15:30 Heparin Sodium (Porcine) (Heparin (1000 Units/ml)) 3,300 unit PER PROTOCOL PRN IV aPTT<47-57 Last administered on 04/04/19 06:44; Admin Dose 3,300 UNIT; Start 04/03/19 at 15:30 Heparin Sodium (Porcine) 250 ml @ 20.5 mls/hr PER PROTOCOL IV Last administered on 04/07/19 19:16; Admin Dose 23 MLS/HR; Start 04/03/19 at 22:30 CARLOS TRIVEDI Apr 08, 2019 07:15
[2019-04-08] MEDS: HEPARIN 25000 UNITS/250 ML 250 ML IV SCH (08:33)
[2019-04-08] MEDS: FLUCONAZOLE 200 MG TAB PO SCH (09:21)
[2019-04-08] MEDS: SENNA TAB PO SCH (09:21)
[2019-04-08] MEDS: FUROSEMIDE 20 MG TAB PO SCH (09:21)
[2019-04-08] MEDS: CEFTRIAXONE 2 GM/50 ML (PMX) 50 ML IVPB SCH (10:17)
[2019-04-08] MEDS ORDERED: APIX5TAB PO (14:09)
[2019-04-08] MEDS ORDERED: LEVA1.25 HHN (14:09)
[2019-04-08] MEDS ORDERED: Ipratropium 0.02% (Neb) HHN (14:09)
[2019-04-08] MEDS ORDERED: CEFT2PIG2 IVPB (14:09)
[2019-04-08] MEDS ORDERED: OXYC-438 PO (14:09)
[2019-04-08] MEDS ORDERED: LAS20 PO (14:09)
[2019-04-08] MEDS ORDERED: SENN-120 PO (14:09)
--- NOTE | 2019-04-08 14:10 | PDOCDIS ---
Discharge Instructions DIAGNOSIS Discharge Diagnosis 1. 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 Acute hypoxic respiratory failure with fever/sepsis 4. CLAUDIA FOLLOW UP/APPOINTMENTS Follow-up Plan 1. Further care and management per half-way facility SHANNON WHITE NP Apr 08, 2019 14:10
--- NOTE | 2019-04-08 20:38 | PN ---
DATE: 04/08/2019 SUBJECTIVE: The patient states he is feeling better. Less complaints of chest pain or shortness of breath. He has no complaints of hemoptysis at this time. OBJECTIVE: GENERAL: The patient is a well-developed, well-nourished male in no acute distress. VITAL SIGNS: Temperature 98.3, pulse 109 per minute and regular, respirations 18, blood pressure 118 /76, pulse oximetry 95%. SKIN: Scattered tattoos. No ecchymosis, no petechiae or rashes. HEENT: Normocephalic. No evidence of trauma. Pupils equal, round, react to light and accommodation . Sclerae are nonicteric. Oral mucosa is moist without lesions. NECK: Supple. No jugular venous distention or thyroid enlargement. CHEST: Clear at this time. No rhonchi, wheezes, rales or rubs. There is evidence of previous shultz otomy and pacemaker in place. HEART: Sinus tachycardia. No S3, S4 or murmurs. ABDOMEN: Soft, no masses, no ascites. EXTREMITIES: No clubbing, edema or cyanosis. No palpable cords or Homans sign. LABORATORY: White count 17,700 with an absolute neutrophil count of 10,200, hemoglobin 9.4, hematocr it 29.5, platelet count 395,000. Last PTT was 93.4 seconds. Evaluation for thrombophilia is negative. The patient does not have any evidence of lupus anticoagul ant or antiphospholipid antibodies. No evidence of factor V Leiden mutation or prothrombin gene muta tion. ASSESSMENT: 1. 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 2. Pulmonary emboli. 3. Pulmonary infiltrates which may be related to septic emboli. Discussion has been raised as to whether the patient may be placed on direct oral anticoagulation suc h as apixaban or rivaroxaban. The patient could be switched to one of these agents, although it should be recalled that reversal ma y be more difficult if some new bleeding incident should occur. Would not start these agents until the patient's PTT is at a therapeutic level rather than the level of 99 seconds as it is at this time. Dictated By: BONIFACIO BANKS MD, SR/[facility] Conf#: [id number] DID#: [id number] CC: ALEX CLARKE MD; ALEX WILSON MD;*[facility]*
--- NOTE | 2019-04-08 21:34 | DS ---
Date/Time of Note Date/Time of Note DATE: 04/08/19 TIME: 21:34 Discharge Summary Admission/Discharge Info Admit Date/Time March 17, 2019 at 15:13 Discharge Date/Time Apr 08, 2019 at 20:04 Discharge Diagnosis 1. 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 Acute hypoxic respiratory failure with fever/sepsis 4. CLAUDIA Hospital Course Assessment and plan 1. IVC filter thrombus. - IVC filter placed last admission (not indicated at the time and not indicated now). - filter has developed a 1x1 cm thrombus at the tip, which is a contraindication for removal. - continue heparin - There was plan to remove this IVC filter prior to discharge to prevent complications however due to large thrombus attached to top of filter, it is unsafe to remove. Discussed case with vascular surgeon. 2. Tricuspid valve vegetation (endocarditis) - Patient had possible tricuspid valve vegetations last admission [facility] was indeterminate. - ABX per ID . Current recommendation is a 42 day course of ceftriaxone (until May 04) for likely endocarditis. 3. Acute hypoxic respiratory failure with fever/sepsis - Secondary to chronic pulmonary embolism, noncompliant with Eliquis after last hospital discharge. - antiphospholipid antibody and protein C was ordered, (hypercoagulable workup is usually not done during treatment of active thrombosis). - On heparin for now and eventual transition to Eliquis indefinitely. - Titrate off o2 as tolerated. note that last time he left AMA he was living at his mother's house somewhat functional on room air for over a month. - Continue antitussives as needed for cough 4. CLAUDIA: - Resolving - Monitor DISPO/PLAN: continue abx. Vascular surgeon consulted. Unsafe to remove IVC filter. continue heparin for now. Transition to oral anticoagulant per hematology. continue inhouse monitoring, Transfer to med/surg Discussed POC with Dr. Parson [place] Meds Active Scripts Oxycodone HCl/Acetaminophen (Oxycodone-Acetaminophen 5-325) 1 Each Tablet, 1 TAB PO Q6H PRN for .SEVERE PAIN 7-10, #20 TAB Prov:SHANNON WHITE [employer]DER EXPERT 04/08/19 Sennosides* (Senna Lax*) 8.6 Mg Tablet, 1 TAB PO BID, #60 TAB Prov:SHANNON WHITE P[employer] EXPERT 04/08/19 Levalbuterol Hcl* (Levalbuterol Hcl*) 1.25 Mg/0.5 Ml Vial.neb, 1.25 MG HHN Q4H RESP THERAPY for 30 Days Prov:SHANNON WHITE [employer] EXPERT 04/08/19 [Ipratropium 0.02% (Neb)] 0.5 MG/2.5 ML NEBU No Conflict Check, 0.5 MG HHN Q4H RESP THERAPY for 30 Days Prov:SHANNON WHITE [employer] EXPERT 04/08/19 Furosemide (Lasix) 20 Mg Tab, 20 MG PO DAILY for 30 Days, #30 TAB Prov:SHANNON WHITE [employer] EXPERT 04/08/19 Apixaban* (Eliquis*) 5 Mg Tablet, 5 MG PO BID for 60 Days, TAB Prov:SHANNON WHITE MARILY 04/08/19 Ceftriaxone Sod* (Rocephin* 2GM/D5W (PMX)) 2 Gm/50 Ml Iv.soln., 2 GM IVPB Q24H, #21 EA Prov:SHANNON WHITE MARILY 04/08/19 Discontinued Reported Medications Aspirin* (Aspirin* EC) 81 Mg Tablet.dr, 81 MG PO DAILY, TAB TAKE 2 OR 3 TIMES A DAY 04/27/18 Follow-up Plan 1. Further care and management per halfway facility Primary Care Provider Pending Labs Laboratory Tests Test 04/08/19 06:10 04/08/19 08:21 White Blood Count 17.7 10^3/ul (4.8-10.8) Red Blood Count 3.60 10^6/ul (4.70-6.10) Hemoglobin 9.4 g/dl (14.0-18.0) Hematocrit 29.5 % (42.0-52.0) Mean Corpuscular Volume 81.9 fl (82.0-101.0) Mean Corpuscular Hemoglobin 26.1 pg (29.0-33.0) Mean Corpuscular 31.9 g/dl (32.0-37.0) Hemoglobin Concent Red Cell Distribution Width 16.0 % (11.5-14.5) Platelet Count 393 10^3/UL (140-415) Mean Platelet Volume 9.0 fl (7.4-10.4) Immature Granulocytes % 9.700 % (0.001-0.429) Neutrophils % 54.0 % (39.0-77.0) Segmented Neutrophils 57 % (39-77) % (Manual) Band Neutrophils % (Manual) 3 % (0-4) Lymphocytes % 25.3 % (15.0-51.0) Lymphocytes % (Manual) 28 % (15-51) Monocytes % 8.4 % (0.0-11.0) Monocytes % (Manual) 3 % (0-11) Eosinophils % 2.4 % (0.0-7.0) Eosinophils % (Manual) 5 % (0-7) Basophils % 0.2 % (0.0-2.0) Metamyelocytes % (manual) 1 % (0-0) Myelocytes % (Manual) 3 % (0-0) Nucleated Red Blood Cells % 1 % (0-0) Immature Granulocytes # 1.710 10^3/ul (0.0-0.031) Neutrophils # 9.6 10^3/ul (1.6-7.5) Neutrophils # (Manual) 10.2 10^3/ul (1.6-7.5) Band Neutrophils # 0.5 10^3/ul (0.0-0.6) Lymphocytes (Manual) 4.9 10^3/ul (0.8-2.9) Lymphocytes # 4.5 10^3/ul (0.8-2.9) Monocytes # 1.5 10^3/ul (0.3-0.9) Monocytes # (Manual) 0.5 10^3/ul (0.3-0.9) Eosinophils # 0.4 10^3/ul (0.0-0.5) Basophils # 0.0 10^3/ul (0.0-0.1) Metamyelocytes # 0.1 10^3/ul (0.0-0.0) Myelocytes # 0.5 10^3/ul (0.0-0.0) Nucleated Red Blood Cells # 0.2 10^3/ul (0.0-0.0) Platelet Estimate NORMAL Giant Platelets 1 % (0-0) Polychromasia 2+ (0-0) Hypochromasia 1+ (0-0) Poikilocytosis 1+ (0-0) Anisocytosis 1+ (0-0) Target Cells 1+ (0-0) Activated Partial Thromboplast 93.4 Sec (23.0-35.0) Time Sodium Level 137 mmol/L (135-144) Potassium Level 4.0 mmol/L (3.5-5.1) Chloride Level 102 mmol/L (97-110) Carbon Dioxide Level 27 mmol/L (21-31) Anion Gap 8 (5-13) Blood Urea Nitrogen 35 mg/dl (7-20) Creatinine 0.97 mg/dl (0.61-1.24) Est Glomerular Filtrat > 60 mL/min (>60) Rate mL/min Glucose Level 102 mg/dl (70-220) Calcium Level 9.1 mg/dl (8.4-10.2) Phosphorus Level 5.3 mg/dl (2.5-4.9) Magnesium Level 1.7 mg/dl (1.7-2.5) Lab Scanned Report [facility] [id number] SHANNON WHITE NP Apr 08, 2019 21:34
== END 2019-04-08 20:04 | DRG 871 ==
LOC: E/R 10:07 → SUATTDRO 14:59 → ICU 15:13 → MERGE 15:13 → EDBEDREQSVC 15:23 → 6WM 03-19 15:51
PROVIDERS: ADMIT Internal Medicine; ATTEND Internal Medicine
DX: A41.9 Sepsis, unspecified organism (principal); I33.0 Acute and subacute infective endocarditis; I26.90 Septic pulmonary embolism without acute cor pulmonale; N17.0 Acute kidney failure with tubular necrosis; J96.91 Respiratory failure, unspecified with hypoxia; J96.01 Acute respiratory failure with hypoxia; J18.9 Pneumonia, unspecified organism; I50.31 Acute diastolic (congestive) heart failure; I21.A1 Myocardial infarction type 2; I82.220 Acute embolism and thrombosis of inferior vena cava; I76 Septic arterial embolism; T82.6XXA Infection and inflammatory reaction due to cardiac valve prosthesis, initial encounter; E87.1 Hypo-osmolality and hyponatremia; E87.0 Hyperosmolality and hypernatremia; F15.10 Other stimulant abuse, uncomplicated; F19.10 Other psychoactive substance abuse, uncomplicated; Y83.9 Surgical procedure, unspecified as the cause of abnormal reaction of the patient, or of later complication, without mention of misadventure at the time of the procedure; D64.9 Anemia, unspecified; E83.9 Disorder of mineral metabolism, unspecified; R91.8 Other nonspecific abnormal finding of lung field; R59.9 Enlarged lymph nodes, unspecified; I51.7 Cardiomegaly; R65.20 Severe sepsis without septic shock; A49.02 Methicillin resistant Staphylococcus aureus infection, unspecified site; Z87.898 Personal history of other specified conditions; Z72.0 Tobacco use; Z86.59 Personal history of other mental and behavioral disorders; Z95.2 Presence of prosthetic heart valve; Z95.0 Presence of cardiac pacemaker
CPT/HCPCS: 36415; 36600; 71045; 71275; 74176; 74177; 76604; 76700; 76705; 76775; 78806; 80048; 80053; 80202; 81001; 81003; 81240; 82043; 82668; 82803; 82962; 82977; 83010; 83036; 83605; 83615; 83735; 83890; 84100; 84145; 84155; 84300; 84484; 85014; 85018; 85025; 85045; 85384; 85610; 85613; 85730; 86146; 86147; 86592; 86635; 86738; 87070; 87081; 87086; 87449; 93005; 93306; 93970; 94640; 94664; 96374; 96375; 96376; A9570; J0692; J0696; J1170; J1644; J1650; J1940; J2060; J2185; J2270; J2405; J2543; J2920; J3370; J3475; J7030; J7040; J7050; J7512; Q5106; Q9967